=== PATIENT | female | born 1950 | race Caucasian/White ===

== ENCOUNTER 2020-09-02 12:38 | Outpatient (REF) | payer MEDICARE, SELFPAY ==
[2020-09-02 14:02] LABS: MANUAL DIFF FLAG NO
[2020-09-02 14:07] LABS: Basophils Percent Auto 0.4 % (0-2); Eosinophils Absolute Auto 0.1 X10*3/uL (0.0-0.4); Hematocrit 39.5 % (37-47); Imm Gran Abs Auto 0.02 X10*3/uL (0.00-0.03); Imm Gran Pct Auto 0.4 % (0.0-0.4); Lymphocytes Absolute Auto 1.3 X10*3/uL (1.2-4.9); Lymphocytes Percent Auto 27.6 % (20-40); Mean Corpuscular HGB Conc 32.9 g/dl (31.0-35.0); Mean Corpuscular Hemoglobin 36.7 pg (27.0-33.0); Monocytes Absolute Auto 0.4 X10*3/uL (0.1-1.2); Monocytes Percent Auto 7.3 % (2-11); Neutrophils Absolute Auto 3.1 X10*3/uL (2.0-8.3); Neutrophils Percent Auto 63.3 % (45-73); Platelet Count 244 X10*3/uL (160-400); Red Blood Count 3.54 X10*6/uL (4.20-5.50); Red Cell Distribution Width 13.2 % (11.0-16.0); White Blood Count 4.8 X10*3/uL (4.8-10.8)
[2020-09-02 14:11] LABS: Mean Corpuscular Volume 111.6 fL (80-98)
[2020-09-02 14:42] LABS: Anion Gap 15 (12-20); Blood Urea Nitrogen 18 mg/dL (9-16); Calcium 9.6 mg/dL (8.4-10.2); Carbon Dioxide 28 mmol/L (22-29); Chloride 103 mmol/L (96-108); Estimated Glomerular Filt Rate 57; Glucose Random 134 mg/dL (60-115); Potassium 4.1 mmol/l (3.3-5.1); Sodium 142 mmol/L (135-145)
[2020-09-03 20:07] LABS: LDL Cholesterol Direct 102 mg/dL (<100)
== END 2020-09-02 12:39 | disposition home or self-care (01) ==
LOC: HO.HMGCLDS 12:38
PROVIDERS: PCP Internal Medicine; Visit Provider Internal Medicine
DX: K21.9 Gastro-esophageal reflux disease without esophagitis (principal); F41.1 Generalized anxiety disorder; J45.909 Unspecified asthma, uncomplicated; I10 Essential (primary) hypertension
CPT/HCPCS: 36415; 80048; 83721; 85025; 85060

== ENCOUNTER 2020-09-29 16:38 | Outpatient (REF) | payer MEDICARE, SELFPAY ==
--- NOTE | 2020-09-29 16:41 | MM_ITS ---
EXAMINATION: MM SCREENING DIGITAL BREAST TOMOSYNTHESIS, LEFT CLINICAL INFORMATION: Screening left breast mammogram. Status post right mastectomy. COMPARISON: Mammography: 07/30/2019 and studies dating back to 06/28/2013 TECHNIQUE: Digital breast tomosynthesis is performed in both the craniocaudal and mediolateral oblique views along with computer-aided detection (CAD). Synthesized 2D images are generated from the tomosynthesis. FINDINGS: There are scattered areas of fibroglandular density (ACR BI-RADS breast composition Category b). Patient is status post right mastectomy. There is stable architectural distortion about the anterior aspect of the left breast with no new abnormal dominant mass or suspicious grouping of microcalcifications identified. MM/MM tomosynthesis screening LT IMPRESSION: There are no significant changes from prior study. ASSESSMENT: BI-RADS 2: Benign. RECOMMENDATION: Routine annual mammography screening. This patient's information was entered into a reminder system with a target due date for their next mammogram.
== END 2020-09-29 16:39 | disposition home or self-care (01) ==
LOC: HO.MAMMO 16:38
PROVIDERS: PCP Internal Medicine; Visit Provider Internal Medicine
DX: Z12.31 Encounter for screening mammogram for malignant neoplasm of breast (principal)
CPT/HCPCS: 77067

== ENCOUNTER 2020-11-18 12:33 | Outpatient (REF) | payer MEDICARE, SELFPAY ==
[2020-11-18 14:39] LABS: B Type Natriuretic Peptide 611 pg/mL (<100)
[2020-11-18 14:53] LABS: Anion Gap 17 (12-20); Blood Urea Nitrogen 18 mg/dL (9-16); Calcium 9.7 mg/dL (8.4-10.2); Carbon Dioxide 25 mmol/L (22-29); Chloride 104 mmol/L (96-108); Estimated Glomerular Filt Rate > 60; Glucose Random 137 mg/dL (60-115); Potassium 4.1 mmol/l (3.3-5.1); Sodium 142 mmol/L (135-145)
== END 2020-11-18 12:34 | disposition home or self-care (01) ==
LOC: HO.LAB 12:33
PROVIDERS: PCP Internal Medicine; Visit Provider Internal Medicine
DX: I42.8 Other cardiomyopathies (principal); I11.0 Hypertensive heart disease with heart failure; I49.8 Other specified cardiac arrhythmias; I50.22 Chronic systolic (congestive) heart failure; J45.909 Unspecified asthma, uncomplicated; Z79.899 Other long term (current) drug therapy
CPT/HCPCS: 36415; 80048; 83880; 93005; 99212

== ENCOUNTER → 2020-12-18 14:17 | Outpatient (BNVA) | payer MEDICARE, SELFPAY | PROVIDERS: PCP Internal Medicine; Visit Provider Hospitalist | DX: R91.8 Other nonspecific abnormal finding of lung field (principal); J41.8 Mixed simple and mucopurulent chronic bronchitis | CPT/HCPCS: 99202 ==

== ENCOUNTER 2020-12-30 16:35 | Emergency (ER) | payer MEDICARE, SELFPAY ==
--- NOTE | ~2020-12-30 | US_ITS ---
EXAMINATION: US ABDOMEN LIMITED CLINICAL INFORMATION: Right upper quadrant pain. COMPARISON: None TECHNIQUE: Real-time imaging of the right upper quadrant abdominal viscera. FINDINGS: PANCREAS: The visualized portions of the pancreas are unremarkable but a large portion of the gland is obscured by bowel gas. LIVER: The liver demonstrates increased echogenicity consistent with hepatic steatosis. No focal hepatic lesion. There is no intrahepatic biliary duct dilatation seen. GALLBLADDER: The patient experience tenderness when the actuarial director pressed the ultrasound probe over the gallbladder. The gallbladder is physiologically distended without evidence of stones, sludge, polyps, wall thickening or pericholecystic fluid. COMMON BILE DUCT: Normal in caliber measuring 0.6 cm in diameter. RIGHT KIDNEY: Normal. No hydronephrosis. No renal calculi or focal parenchymal lesions. The kidney measures 11.1 cm in maximum dimension. FREE FLUID: None. US/US abdomen limited IMPRESSION: Sonographically Normal-appearing gallbladder without evidence of cholecystitis. However, the patient did experience tenderness over the gallbladder with palpation with the ultrasound probe.
[2020-12-30 17:09] VITALS: BP 120/74; PULSE 89; RESP 16; TEMP 37.1; O2SAT 96; BMI 33.8
[2020-12-30 17:24] LABS: MANUAL DIFF FLAG NO
[2020-12-30 17:26] LABS: Basophils Percent Auto 0.2 % (0-2); Eosinophils Absolute Auto 0.1 X10*3/uL (0.0-0.4); Eosinophils Percent Auto 1.1 % (0-4); Hematocrit 38.3 % (37-47); Hemoglobin 12.8 g/dl (12.0-16.0); Imm Gran Abs Auto 0.01 X10*3/uL (0.00-0.03); Imm Gran Pct Auto 0.2 % (0.0-0.4); Lymphocytes Absolute Auto 1.2 X10*3/uL (1.2-4.9); Lymphocytes Percent Auto 21.5 % (20-40); Mean Corpuscular HGB Conc 33.4 g/dl (31.0-35.0); Mean Corpuscular Hemoglobin 36.6 pg (27.0-33.0); Mean Corpuscular Volume 109.4 fL (80-98); Mean Platelet Volume 11.2 fL (9.4-12.3); Monocytes Absolute Auto 0.6 X10*3/uL (0.1-1.2); Monocytes Percent Auto 10.8 % (2-11); Neutrophils Absolute Auto 3.6 X10*3/uL (2.0-8.3); Neutrophils Percent Auto 66.2 % (45-73); Platelet Count 183 X10*3/uL (160-400); Red Cell Distribution Width 12.5 % (11.0-16.0); White Blood Count 5.4 X10*3/uL (4.8-10.8)
[2020-12-30 18:00] VITALS: BP 143/67; PULSE 64; RESP 16; TEMP 36.7; O2SAT 99
[2020-12-30 18:00] LABS: Alanine Aminotransferase 50 U/L (0-31); Albumin Level 4.6 g/dL (3.5-5.0); Alkaline Phosphatase 84 U/L (39-117); Anion Gap 18 (12-20); Aspartate Amino Transferase 71 U/L (5-31); Bilirubin Direct 0.6 mg/dL (0.0-0.5); Bilirubin Total 1.3 mg/dL (0.0-1.0); Blood Urea Nitrogen 32 mg/dL (9-16); Calcium 9.9 mg/dL (8.4-10.2); Carbon Dioxide 24 mmol/L (22-29); Chloride 103 mmol/L (96-108); Creatinine Clr Calc Pharmacy 53.5; Estimated Glomerular Filt Rate 44; Glucose Random 138 mg/dL (60-115); Lipase 23 U/L (8-78); Potassium 4.5 mmol/L (3.3-5.1); Sodium 140 mmol/L (135-145)
--- NOTE | 2020-12-30 19:52 | ED_ITS ---
HPI - Abdominal Pain General Chief Complaint: Abdominal Pain <Juanita Mota PA-C - Last Filed: 12/30/20 20:55> Stated Complaint: Gall Bladder issue <Juanita Mota PA-C - Last Filed: 12/30/20 20:55> Time Seen by Provider: 12/30/20 19:37 <Juanita Mota PA-C - Last Filed: 12/30/20 20:55> Source: patient <Juanita Mota PA-C - Last Filed: 12/30/20 20:55> Mode of arrival: ambulatory <DEVAN Payne Last Filed: 12/30/20 20:55> Limitations: no limitations <Juanita Mota PA-C - Last Filed: 12/30/20 20:55> History of Present Illness HPI narrative: Patient is a 70-year-old female with a past medical history of COPD, not on home oxygen, HTN, pulmonary nodules, atrial arrhythmia, CHF w/EF 45%, nonischemic cardiomyopathy, GERD, anxiety, rheumatoid arthritis, osteoarthritis and muscle spasms who comes in today complaining of a right upper quadrant pain which has been getting worse over the last few days. She describes the pain as a twisting pain. She admits to nausea but no vomiting, pebble like stools, reduced appetite, and denies fevers, shortness of breath, chest pain or diarrhea. She states she went to her PCP and her PCP sent her to the emergency department. <Juanita Mota PA-C - Last Filed: 12/30/20 20:55> Related Data Home Medications: Home Medications Medication Instructions Recorded Confirmed furosemide 40 mg tablet 40 mg PO DAILY 09/02/20 12/30/20 acetaminophen 500 mg tablet 500 mg PO Q6H PRN 12/18/20 12/30/20 aspirin 81 mg tablet,delayed 81 mg PO DAILY 12/18/20 12/30/20 release cholecalciferol (vitamin D3) 50 50 mcg PO DAILY 12/18/20 12/30/20 mcg (2,000 unit) capsule diphenhydramine HCl 25 mg tablet 25 mg PO Q6H PRN 12/18/20 12/30/20 Previous Rx's Medication Instructions Recorded albuterol sulfate 90 mcg/actuation 1 inh INHALATION QID PRN 30 Days 09/02/20 aerosol inhaler #18 g cyclobenzaprine 5 mg tablet 5 mg PO BEDTIME PRN 90 Days #90 tab 09/02/20 omeprazole 20 mg capsule,delayed 20 mg PO DAILY #90 cap 09/20/20 release celecoxib 200 mg capsule 200 mg PO DAILY #90 cap 10/07/20 amlodipine 5 mg tablet 5 mg PO DAILY 90 Days #90 tab 10/30/20 fluoxetine 40 mg capsule 40 mg PO DAILY 90 Days #90 cap 11/20/20 metoprolol succinate 25 mg 25 mg PO DAILY #90 tab 12/02/20 tablet,extended release 24 hr losartan 50 mg tablet 50 mg PO DAILY #90 tab 12/03/20 fluticasone fur. 200 mcg-umeclid 1 inh INHALATION DAILY 30 Days #60 12/18/20 62.5 mcg-vilant 25 mcg ea inhalat.powder oxycodone 5 mg PO Q6H PRN #10 tab 12/30/20 <Juanita Mota PA-C - Last Filed: 12/30/20 20:55> Allergies/Adverse Reactions: Allergies Allergy/AdvReac Type Severity Reaction Status Date / Time hydromorphone [From DILAUDID] Allergy Intermediate HIVES Verified 12/18/20 14:54 tramadol [From ULTRAM] Allergy Intermediate ITCHY Verified 12/18/20 14:54 epinephrine AdvReac Intermediate hypotension Verified 12/18/20 14:54 gabapentin AdvReac Intermediate dizzy , Verified 12/18/20 14:54 sleepy, gi upset rofecoxib [From Vioxx] AdvReac Intermediate does not Verified 12/18/20 14:54 work <Juanita Mota PA-C - Last Filed: 12/30/20 20:55> Review of Systems Review of Systems Yes all other systems are reviewed and are negative <KODY Payne - Last Filed: 12/30/20 20:55> Physical Exam Vital Signs: Vital Signs: Last Vital Signs Temp 98.0 F 12/30/20 18:00 Pulse 64 12/30/20 18:00 Resp 16 12/30/20 18:00 BP 143/67 H 12/30/20 18:00 Pulse Ox 99 12/30/20 18:00 Body Mass Index 33.8 <Juanita Mota PA-C - Last Filed: 12/30/20 20:55> Vital Signs: Last Vital Signs Temp 98.0 F 12/30/20 18:00 Pulse 64 12/30/20 18:00 Resp 16 12/30/20 18:00 BP 143/67 H 12/30/20 18:00 Pulse Ox 99 12/30/20 18:00 Body Mass Index 33.8 <Kamila Allan NP - Last Filed: 12/31/20 00:00> Const: General: cooperative, healthy appearing, comfortable, no acute distress and well developed <Juanita Mota PA-C - Last Filed: 12/30/20 20:55> Orientation/consciousness: patient oriented x3 <Juanita Mota PA-C - Last Filed: 12/30/20 20:55> Limitations: no limitations <Juanita Mota PA-C - Last Filed: 12/30/20 20:55> HENMT: Head: Yes normal to inspection <Juanita Moat PA-C - Last Filed: 12/30/20 20:55> Eyes: General: appearance normal, both eyes and all related structures <Juanita Mota PA-C - Last Filed: 12/30/20 20:55> Neck: Neck: Yes normal visual inspection and Yes full ROM <Juanita Mota PA-C - Last Filed: 12/30/20 20:55> Resp: Effort & Inspection: normal respiratory effort and able to speak in complete sentences <Juanita Mota PA-C - Last Filed: 12/30/20 20:55> Auscultation: clear to auscultation bilaterally <Juanita Mota PA-C - Last Filed: 12/30/20 20:55> Cardio: Rate: regular rate <Juanita Mota PA-C - Last Filed: 12/30/20 20:55> Rhythm: regular rhythm <Juanita Mota PA-C - Last Filed: 12/30/20 20:55> Heart sounds: normal S1 and S2 <DEVAN Payne Last Filed: 12/30/20 20:55> GI: Inspection: Yes normal to inspection <Juanita Mota PA-C - Last Filed: 12/30/20 20:55> Palpation (GI): Soft to palpation and Tenderness to palpation present (GI) in the RUQ and Jordan's sign positive <Juanita Mota PA-C - Last Filed: 12/30/20 20:55> Skin: General skin exam: no rashes or lesions noted <KODY Payne - Last Filed: 12/30/20 20:55> Neuro: General: patient oriented x3 <Juanita Mota PA-C - Last Filed: 12/30/20 20:55> Extrem: General: Yes normal to inspection <Juanita Mota PA-C - Last Filed: 12/30/20 20:55> Course Course Course Narrative: Patient is a 70-year-old female with a past medical history of COPD, not on home oxygen, HTN, pulmonary nodules, atrial arrhythmia, CHF w/EF 45%, nonischemic cardiomyopathy, GERD, anxiety, rheumatoid arthritis, osteoarthritis and muscle spasms who comes in today complaining of a right upper quadrant pain which has been getting worse over the last few days. Patient is nontoxic appearing and physical exam reveals a positive Jordan sign. Will treat patient's pain. Labs reveal an elevated total bilirubin 1.3, elevated direct bilirubin 0.6, elevated AST 71, elevated ALT 50, no white count, lipase is WNL at 78. Abdominal ultrasound has been ordered. 12/30/2020 9pm Sign out to Kamila Allan NP <Juanita Mota PA-C - Last Filed: 12/30/20 20:55> Abdominal ultrasound limited of the right upper quadrant indicates inflammation of the gallbladder without stones or sludge. Discussion with Dr. Pacheco via [place] text at 10:10 p.m., he will follow up with her in the office for surgical outpatient. Will give oxycodone for pain management, detailed description regarding the dangers of this drug. Patient verbalized understanding of and agrees to plan of care to discharge home. <Kamila Allan NP - Last Filed: 12/31/20 00:00> MDM - Abdominal Pain Differential Diagnosis Differential diagnosis: Likely abdominal pain <Kamila Allan NP - Last Filed: 12/31/20 00:00> Medical Records Attestation: I reviewed the patient's medical records. <Kamila Allan NP - Last Filed: 12/31/20 00:00> Lab Data Attestation: I reviewed the patient's lab results. <Kamila Allan NP - Last Filed: 12/31/20 00:00> Result diagrams: : 12/30/20 17:17 12/30/20 17:18 <Juanita Mota PA-C - Last Filed: 12/30/20 20:55> Labs: Lab Results 12/30/20 12/30/20 12/30/20 Range/Units 17:17 17:17 17:18 WBC 5.4 (4.8-10.8) X10*3/uL RBC 3.50 L (4.20-5.50) X10*6/uL Hgb 12.8 (12.0-16.0) g/dl Hct 38.3 (37-47) % MCV 109.4 H (80-98) fL MCH 36.6 H (27.0-33.0) pg MCHC 33.4 (31.0-35.0) g/dl RDW 12.5 (11.0-16.0) % Plt Count 183 (160-400) X10*3/uL MPV 11.2 (9.4-12.3) fL Immature Gran % (Auto) 0.2 (0.0-0.4) % Neut % (Auto) 66.2 (45-73) % Lymph % (Auto) 21.5 (20-40) % [place] % (Auto) 10.8 (2-11) % Eos % (Auto) 1.1 (0-4) % Baso % (Auto) 0.2 (0-2) % Lymph # (Auto) 1.2 (1.2-4.9) X10*3/uL [place] # (Auto) 0.6 (0.1-1.2) X10*3/uL Eos # (Auto) 0.1 (0.0-0.4) X10*3/uL Baso # (Auto) 0.0 (0.0-0.2) X10*3/uL Abs Immat Gran (auto) 0.01 (0.00-0.03) X10*3/uL Absolute Neuts (auto) 3.6 (2.0-8.3) X10*3/uL Absolute Nucleated RBC 0.000 (0.0-0.012) X10*3/uL Nucleated RBC % (auto) 0.0 (0.0-0.2) /100WBC Hold Blue Top SEE NOTE Sodium 140 (135-145) mmol/L Potassium 4.5 (3.3-5.1) mmol/L Chloride 103 (96-108) mmol/L Carbon Dioxide 24 (22-29) mmol/L Anion Gap 18 (12-20) BUN 32 H D (9-16) mg/dL Creatinine 1.21 (0.5-1.4) mg/dL Estim Creat Clear Calc 53.5 Estimated GFR 44 Random Glucose 138 H (60-115) mg/dL Calcium 9.9 (8.4-10.2) mg/dL Total Bilirubin 1.3 H (0.0-1.0) mg/dL Direct Bilirubin 0.6 H (0.0-0.5) mg/dL AST 71 H (5-31) U/L ALT 50 H (0-31) U/L Alkaline Phosphatase 84 (39-117) U/L Total Protein 8.0 (6.5-8.0) g/dL Albumin 4.6 (3.5-5.0) g/dL Lipase 23 (8-78) U/L <Juanita Mota PA-C - Last Filed: 12/30/20 20:55> Lab Results 12/30/20 12/30/20 12/30/20 Range/Units 17:17 17:17 17:18 WBC 5.4 (4.8-10.8) X10*3/uL RBC 3.50 L (4.20-5.50) X10*6/uL Hgb 12.8 (12.0-16.0) g/dl Hct 38.3 (37-47) % MCV 109.4 H (80-98) fL MCH 36.6 H (27.0-33.0) pg MCHC 33.4 (31.0-35.0) g/dl RDW 12.5 (11.0-16.0) % Plt Count 183 (160-400) X10*3/uL MPV 11.2 (9.4-12.3) fL Immature Gran % (Auto) 0.2 (0.0-0.4) % Neut % (Auto) 66.2 (45-73) % Lymph % (Auto) 21.5 (20-40) % [place] % (Auto) 10.8 (2-11) % Eos % (Auto) 1.1 (0-4) % Baso % (Auto) 0.2 (0-2) % Lymph # (Auto) 1.2 (1.2-4.9) X10*3/uL [place] # (Auto) 0.6 (0.1-1.2) X10*3/uL Eos # (Auto) 0.1 (0.0-0.4) X10*3/uL Baso # (Auto) 0.0 (0.0-0.2) X10*3/uL Abs Immat Gran (auto) 0.01 (0.00-0.03) X10*3/uL Absolute Neuts (auto) 3.6 (2.0-8.3) X10*3/uL Absolute Nucleated RBC 0.000 (0.0-0.012) X10*3/uL Nucleated RBC % (auto) 0.0 (0.0-0.2) /100WBC Hold Blue Top SEE NOTE Sodium 140 (135-145) mmol/L Potassium 4.5 (3.3-5.1) mmol/L Chloride 103 (96-108) mmol/L Carbon Dioxide 24 (22-29) mmol/L Anion Gap 18 (12-20) BUN 32 H D (9-16) mg/dL Creatinine 1.21 (0.5-1.4) mg/dL Estim Creat Clear Calc 53.5 Estimated GFR 44 Random Glucose 138 H (60-115) mg/dL Calcium 9.9 (8.4-10.2) mg/dL Total Bilirubin 1.3 H (0.0-1.0) mg/dL Direct Bilirubin 0.6 H (0.0-0.5) mg/dL AST 71 H (5-31) U/L ALT 50 H (0-31) U/L Alkaline Phosphatase 84 (39-117) U/L Total Protein 8.0 (6.5-8.0) g/dL Albumin 4.6 (3.5-5.0) g/dL Lipase 23 (8-78) U/L <Kamila Allan NP - Last Filed: 12/31/20 00:00> Imaging Data US - abdomen: Attestation: I personally reviewed and interpreted this imaging study as follows: <Kamila Allan NP - Last Filed: 12/31/20 00:00> Radiologist's impression: EXAMINATION: US ABDOMEN LIMITED CLINICAL INFORMATION: Right upper quadrant pain. COMPARISON: None TECHNIQUE: Real-time imaging of the right upper quadrant abdominal viscera. FINDINGS: PANCREAS: The visualized portions of the pancreas are unremarkable but a large portion of the gland is obscured by bowel gas. LIVER: The liver demonstrates increased echogenicity consistent with hepatic steatosis. No focal hepatic lesion. There is no intrahepatic biliary duct dilatation seen. GALLBLADDER: The patient experience tenderness when the motor vehicle technician pressed the ultrasound probe over the gallbladder. The gallbladder is physiologically distended without evidence of stones, sludge, polyps, wall thickening or pericholecystic fluid. COMMON BILE DUCT: Normal in caliber measuring 0.6 cm in diameter. RIGHT KIDNEY: Normal. No hydronephrosis. No renal calculi or focal parenchymal lesions. The kidney measures 11.1 cm in maximum dimension. FREE FLUID: None. US/US abdomen limited IMPRESSION: Sonographically Normal-appearing gallbladder without evidence of cholecystitis. However, the patient did experience tenderness over the gallbladder with palpation with the ultrasound probe. <Kamila Allan NP - Last Filed: 12/31/20 00:00> Discharge Plan Discharge Clinical Impression: Acalculous cholecystitis Abdominal pain Qualifiers: Abdominal location: right upper quadrant Qualified Code(s): R10.11 - Right up per quadrant pain <Juanita Mota PA-C - Last Filed: 12/30/20 20:55> Patient Disposition: Home, Self-Care <Juanita Mota PA-C - Last Filed: 12/30/20 20:55> Instructions: Cholecystitis (ED), Biliary Colic (ED) <Juanita Mota PA-C - Last Filed: 12/30/20 20:55> Additional Instructions: You were evaluated for right upper quadrant pain. Abdominal ultrasound shows a distended gallbladder without stones or sludge. This is consistent with cholecystitis, and inflammation of the gallbladder. We have prescribed oxycodone for pain management. This medication is a narcotic and has high risk for addiction and abuse. Do not drive or operate machinery while taking this me dication. This medication can delay reaction time, cause drowsiness, increased risk for falls and cause constipation. Drink plenty of fluids. Use MiraLax and Colace as needed to keep stools soft and. Please call Dr Pacheco's office in the morning. He is expecting your call. Thank you for choosing this emergency department for evaluation. Please follow-up with primary care physician as needed. Return to the emergency department for any new, concerning, or worsening symptoms. <Juanita Mota PA-C - Last Filed: 12/30/20 20:55> Prescriptions: New oxycodone 5 mg tablet 5 mg PO Q6H PRN (Reason: pain) Qty: 10 RF: 0 No Action omeprazole 20 mg capsule,delayed release(DR/EC) 20 mg PO DAILY Qty: 90 RF: 2 celecoxib 200 mg capsule 200 mg PO DAILY Qty: 90 RF: 0 amlodipine 5 mg tablet 5 mg PO DAILY 90 Days Qty: 90 RF: 0 fluoxetine 40 mg capsule 40 mg PO DAILY 90 Days Qty: 90 RF: 0 metoprolol succinate 25 mg tablet extended release 24 hr 25 mg PO DAILY Qty: 90 RF: 1 losartan 50 mg tablet 50 mg PO DAILY Qty: 90 RF: 3 furosemide 40 mg tablet 40 mg PO DAILY RF: 0 cyclobenzaprine 5 mg tablet 5 mg PO BEDTIME PRN (Reason: muscle spasm) 90 Days Qty: 90 RF: 0 albuterol sulfate [ProAir HFA] 90 mcg/actuation HFA aerosol inhaler 1 inh inhalation QID PRN (Reason: shortness of breath or wheezing) 30 Days Qty: 18 RF: 2 aspirin 81 mg tablet,delayed release (DR/EC) 81 mg PO DAILY RF: 0 cholecalciferol (vitamin D3) 50 mcg (2,000 unit) capsule 50 mcg PO DAILY RF: 0 acetaminophen [Tylenol Extra Strength] 500 mg tablet 500 mg PO Q6H PRNRF: 0 diphenhydramine HCl [Benadryl Allergy] 25 mg tablet 25 mg PO Q6H PRNRF: 0 Trelegy Ellipta 200-62.5-25 mcg blister with device 1 inh inhalation DAILY 30 Days Qty: 60 RF: 12 <Juanita Mota PA-C - Last Filed: 12/30/20 20:55> Referrals: John Pacheco MD [Physician] - 1 day (Cholecystitis) <Juanita Mota PA-C - Last Filed: 12/30/20 20:55> Interventions: ED Discharge Assessment Last Done: 12/30/20 22:30 <Juanita Mota PA-C - Last Filed: 12/30/20 20:55> Discharge Date/Time: 12/30/20 22:40 <Juanita Mota PA-C - Last Filed: 12/30/20 20:55> [facility] Past Medical History Medical History: Medical History Anxiety, generalized Asthma Atrial arrhythmia Cardiac LV ejection fraction of 40-49% Chronic GERD Chronic systolic (congestive) heart failure Colonoscopy refused COPD (chronic obstructive pulmonary disease) History of breast cancer in female Hypertension, essential Muscle spasm NICM (nonischemic cardiomyopathy) Osteoarthritis Pulmonary nodules Rheumatoid arthritis <Juanita Mota PA-C - Last Filed: 12/30/20 20:55> Surgical History: Surgical History History of mastectomy <Juanita Mota PA-C - Last Filed: 12/30/20 20:55> Family History Family History: Family History Father Non-Hodgkin lymphoma Mother CVD (cardiovascular disease) Brother Lung disease Sister No problems noted. Maternal Grandfather Colon cancer Maternal Grandmother CVD (cardiovascular disease) Paternal Grandfather Unknown family medical history Paternal Grandmother Unknown family medical history Brother No problems noted. Son No problems noted. Son No problems noted. Daughter No problems noted. <Juanita Mota PA-C - Last Filed: 12/30/20 20:55> Social History Social History: Social History Alcohol intake: current Alcohol intake frequency: 0-2 drinks per day Smoking Status: Former smoker Advance Directives: No Advance Directives Information Provided: Yes <Juanita Mota PA-C - Last Filed: 12/30/20 20:55>
[2020-12-30] MEDS: HYDROcodone Bit/Acetam 5/325 TABLET 1 TAB PO (20:12)
[2020-12-30] MEDS: Lactated Ringers 500 ML 999 ML IV (21:09)
[2020-12-30] MEDS: oxyCODONE HCl Immed Release 5 MG TABLET PO (22:21)
== END 2020-12-30 22:40 | disposition home or self-care (01) ==
PROVIDERS: Emergency Provider Emergency Medicine; PCP Internal Medicine
DX: K81.9 Cholecystitis, unspecified (principal); R10.11 Right upper quadrant pain; I11.0 Hypertensive heart disease with heart failure; I50.9 Heart failure, unspecified; J44.9 Chronic obstructive pulmonary disease, unspecified; Z79.82 Long term (current) use of aspirin; Z79.899 Other long term (current) drug therapy
CPT/HCPCS: 36415; 76705; 80053; 80076; 82248; 83690; 85025; 96360; 99284

== ENCOUNTER 2021-01-01 | Outpatient (REF) | payer MEDICARE, SELFPAY ==
--- NOTE | ~2021-01-01 | CT_ITS ---
EXAMINATION: CT CHEST WITHOUT CONTRAST CLINICAL INFORMATION: Abnormal finding lung field. COMPARISON: None TECHNIQUE: Multidetector volumetric CT imaging of the chest was done. Axial MIP volume rendering provided. Sagittal and coronal reformatted images were obtained. This CT examination was performed using dose optimization techniques as appropriate, variously including the following: *Automated exposure control *Adjustment of mA and/or kV according to patient size (this includes techniques or standardized protocols for targeted exams where dose is matched to indication/reason for exam; i.e. extremities or head) *Use of iterative reconstruction technique DLP: 189 mGy-cm FINDINGS: LUNGS: Nodules: There is a single 2 mm calcified nodule pleural-based in the left upper lobe on axial image 52/634 series 4. There is a 2 mm nodule in the right upper lobe abutting the pleura on image 246/64 series 4. There is a 2 mm nodule in the left upper lobe on image 77/634 series 4. Parenchyma: There is some linear opacity extending to the minor fissure in the anterior aspect of the right middle lobe compatible with post lumpectomy change/scarring. In the right lower lobe there is some scattered hazy patchy ground-glass opacity. This is also present in the posterior aspect of the right upper lobe and in the posterior aspect of the left lower lobe. The airways are clear. Pleura: Otherwise normal. Cardiovascular: There is some minimal calcific atherosclerotic disease including coronary vessels and aorta. Pulmonary vessels normal. No pericardial effusion. Heart size within normal limits. Lymph Nodes: Normal. Thoracic Inlet: Normal. Esophagus: Normal. Chest Wall and Soft Tissues: Breast implant on the right. Upper Abdomen: Unremarkable. Osseous Structures: There is a compression fracture of the superior endplate of what appeared to be T12. Fractures likely subacute. There is a vacuum disc noted at the L1-T12 disc space indicative of concomitant degenerative disc disease. Similar degenerative changes present at L1-L2. Multilevel spondylosis noted throughout the dorsal spine. CT/CT chest wo con IMPRESSION: 1. Several small 2 mm noncalcified nodules. Follow-up per Fleischner criteria. Various management parameters for solitary pulmonary nodules are in the literature. According to the Fleischner Society, recommendations for pulmonary nodules are as follows: Nodule size < or = to 4 mm in LOW RISK PATIENTS: No follow up needed. Nodule size < or = to 4 mm in HIGH RISK PATIENTS: Follow up CT at 12 months; if unchanged, no further follow up. 2. Patchy ground-glass opacities in both lung, nonspecific. This could reflect an evolving inflammatory or infectious process. 3. Mild calcific atherosclerotic disease. 4. Compression fracture L1 superior endplate likely subacute.
== END 2021-01-01 00:01 | disposition home or self-care (01) ==
LOC: HO.CT
PROVIDERS: PCP Internal Medicine; Visit Provider Hospitalist
DX: R91.8 Other nonspecific abnormal finding of lung field (principal)
CPT/HCPCS: 71250

== ENCOUNTER → 2021-01-05 12:43 | Outpatient (BNVA) | payer MEDICARE, SELFPAY | PROVIDERS: PCP Internal Medicine; Visit Provider Surgery | DX: R10.11 Right upper quadrant pain (principal) | CPT/HCPCS: 99202 ==

== ENCOUNTER → 2021-01-15 12:50 | Outpatient (REF) | payer MEDICARE, SELFPAY ==
--- NOTE | ~2021-01-15 | NM_ITS ---
EXAMINATION: NM HIDA SCAN WITH CCK CLINICAL INFORMATION: Right upper quadrant pain COMPARISON: None TECHNIQUE: 5 mCi technetium mebrofenin and 1.8 mcg CCK. Imaging over the right upper quadrant. FINDINGS: Uptake by the liver is within normal limits. Ductal activity by 10 minutes. Gallbladder activity by 12 minutes. Bowel activity by 15 minutes. Subsequent injection of CCK demonstrates a gallbladder ejection fraction of 65%. NM/NM hepatobiliary w pharm IMPRESSION: Gallbladder ejection fraction at 65%. Therefore, no convincing scintigraphic evidence for gallbladder dyskinesis.
== END ==
LOC: HO.NUCMED 12:50
PROVIDERS: PCP Internal Medicine; Visit Provider Surgery
DX: R10.11 Right upper quadrant pain (principal)
CPT/HCPCS: 78227; A9537

== ENCOUNTER → 2021-01-20 13:22 | Outpatient (BNVA) | payer MEDICARE, SELFPAY | PROVIDERS: PCP Internal Medicine; Visit Provider Hospitalist | DX: J41.8 Mixed simple and mucopurulent chronic bronchitis (principal); R91.8 Other nonspecific abnormal finding of lung field; M05.9 Rheumatoid arthritis with rheumatoid factor, unspecified; J18.9 Pneumonia, unspecified organism; Z79.899 Other long term (current) drug therapy | CPT/HCPCS: 99212 ==

== ENCOUNTER → 2021-01-21 13:18 | Outpatient (BNVA) | payer MEDICARE, SELFPAY | PROVIDERS: PCP Internal Medicine; Visit Provider Surgery ==

== ENCOUNTER → 2021-01-23 13:51 | Outpatient (REF) | payer MEDICARE, SELFPAY ==
--- NOTE | 2021-01-23 13:57 | CA_ITS ---
Transthoracic Echocardiogram Patient (Last, First, Middle): Sherin Butler Alita Gender: Female Date of : 1950 Age: 71 Procedure Date: 01/23/2021 Procedure Type: Transthoracic Echocardiogram Location: OP Height: 170.18 cm Weight: 90.72 kg BSA: 2.02 m2 Heart Rate: bpm BP: 130 / 60 mmHg Allied Health Instructor: Referring MD: Francisco Langford MD Symptoms: I42.8 - Other cardiomyopathies Study Quality: Fair ECG Rhythm: Sinus Conclusions: - The left ventricular systolic function is mild to moderately decreased. The visually estimated ejection fraction is between 35-40%. - E/E prime ratio is between 8 and 15 consistent with indeterminate filling pressures. - Normal right ventricular cavity size and systolic function. - The left atrium is moderately dilated. Findings Left Ventricle Normal left ventricular cavity size. There is mildly increased left ventricular wall thickness. The left ventricular systolic function is mild to moderately decreased. The visually estimated ejection fraction is between 35-40%. There is moderate global hypokinesis. Abnormal diastolic function is noted. Spectral Doppler is indicative of an impaired relaxation filling pattern. E/E prime ratio is between 8 and 15 consistent with indeterminate filling pressures. Right Ventricle Normal right ventricular cavity size and systolic function. Atria The left atrium is moderately dilated. Aortic Valve The aortic valve structure and function is likely normal. There is no aortic valve stenosis. There is no aortic valve regurgitation. Mitral Valve Normal mitral valve structure and function. There is no mitral valve regurgitation. There is no mitral valve stenosis. Pulmonic Valve Normal pulmonic valve structure and function. Tricuspid Valve Normal tricuspid valve structure and function. There is trace tricuspid valve regurgitation. Normal right atrial pressure. There is no evidence of pulmonary hypertension. Great Vessels There is mild dilatation of the ascending aorta. The visualized portions of the pulmonary artery and branches are normal. Venous The inferior vena cava is normal in size and collapses greater than 50% with inspiration. Pericardium/Pleural Normal pericardial structure. There is no evidence of pericardial effusion. Prior Study Comparison No significant change compared to prior study dated: 07/24/2019. Measurements 2D Linear Measurements IVSd: 1.11 0.6-0.9/0.6-1.0 cm LVIDd: 5.47 3.9-5.3/4.2-5.9 cm LVIDd Index: 2.71 2.4-3.2/2.2-3.1 cm/m2 LVIDs: 4.07 2.0-3.6 cm LVPWd: 1.04 0.7-1.1 cm Ao Root: 3.00 2.1-3.5 cm LA Diam: 4.50 2.7-3.8/3.0-4.0 cm LAIDs Index: 2.23 1.5-2.3 cm/m2 LV Mass: 289.93 67-162/88-224 g LV Mass Index: 143.53 43-95/49-115 g/m2 LVOT Diam: 2.10 3.0+(-)1.3 cm 2D Systolic Function EF 4C: 44.00 >55% EF 2C: 51.20 >55% EF BiP: 48.10 >55% Mitral Valve MV Pk E: 0.77 MV PK A: 0.89 MV Decel Time: 292.00 E/A: 0.90 E'Lateral: 5.42 E'Medial: 5.80 E/E' Med: 13.30 E/E' Lat: 14.20 PHT: 86.00 MVA PHT: 2.56 Decel [place]: 2.64 Aortic Valve AoV Pk Vincent: 1.17 AoV Mn Vincent: 0.77 AoV VTI: 0.32 AoV Pk Grad: 5.00 Aov Mn Grad: 3.00 LEONIDAS Cont.VTI: 2.20 LVOT LVOT Pk Vincent: 0.78 LVOT Mn Vincent: 0.53 LVOT VTI: 0.20 LVOT Pk Grad: 2.00 LVOT Mn Grad: 1.00 LVOT Diam: 2.10 LVOT Area: 3.46 Diastolic Function MV Pk E: 0.77 MV Pk A: 0.89 E/A: 0.90 E'Medial: 5.80 E/E' Med: 13.30 E' Laterial: 5.42 E/E' Lat: 14.20 Tricuspid Valve TR Pk Vincent: 2.23 TR Pk Grad: 20.00 RA Press: 3.00 RVSP: 23.00 Great Vessels Aorta Ao Root-2D: 3.00 2.0-3.7 cm Ao Asc: 3.20 2.1-3.4 cm Pulmonary Valve PV Pk Vincent: 0.76 Peak PV Grad: 2.00 Updated in Other Vendor System with Status of Final Fred Latif MD electronically signed on 01/25/2021 6:12:59 PM with status of Final
== END ==
LOC: HO.CARD 13:51
PROVIDERS: Visit Provider Internal Medicine
DX: I42.8 Other cardiomyopathies (principal)
CPT/HCPCS: 93306

== ENCOUNTER → 2021-02-04 13:13 | Outpatient (BNVA) | payer MEDICARE, SELFPAY | PROVIDERS: PCP Internal Medicine; Visit Provider Internal Medicine | DX: I42.8 Other cardiomyopathies (principal); I50.22 Chronic systolic (congestive) heart failure; I49.8 Other specified cardiac arrhythmias; J45.909 Unspecified asthma, uncomplicated; F10.10 Alcohol abuse, uncomplicated | CPT/HCPCS: 99212 ==

== ENCOUNTER 2021-02-23 13:37 | Outpatient (REF) | payer MEDICARE, SELFPAY ==
[2021-02-23 15:55] LABS: MANUAL DIFF FLAG NO
[2021-02-23 16:00] LABS: Basophils Percent Auto 0.6 % (0-2); Eosinophils Absolute Auto 0.2 X10*3/uL (0.0-0.4); Hematocrit 40.9 % (37-47); Hemoglobin 13.4 g/dl (12.0-16.0); Imm Gran Abs Auto 0.04 X10*3/uL (0.00-0.03); Imm Gran Pct Auto 0.6 % (0.0-0.4); Lymphocytes Absolute Auto 1.3 X10*3/uL (1.2-4.9); Lymphocytes Percent Auto 18.1 % (20-40); Mean Corpuscular HGB Conc 32.8 g/dl (31.0-35.0); Mean Corpuscular Hemoglobin 36.3 pg (27.0-33.0); Mean Platelet Volume 11.6 fL (9.4-12.3); Monocytes Absolute Auto 0.8 X10*3/uL (0.1-1.2); Monocytes Percent Auto 11.9 % (2-11); Neutrophils Absolute Auto 4.6 X10*3/uL (2.0-8.3); Neutrophils Percent Auto 65.8 % (45-73); Platelet Count 252 X10*3/uL (160-400); Red Blood Count 3.69 X10*6/uL (4.20-5.50); Red Cell Distribution Width 12.6 % (11.0-16.0)
[2021-02-23 16:07] LABS: Mean Corpuscular Volume 110.8 fL (80-98)
[2021-02-23 16:22] LABS: C Reactive Protein 0.52 mg/dL (< or = 0.50)
[2021-02-23 16:51] LABS: Erythrocyte Sedimentation Rate 33 MM/HR (0-20)
[2021-02-24 04:45] LABS: HBS Num1 7.94 mIU/mL (0-7.99); HBc Num1 0.07 S/CO (0.00-0.79); Hepatitis B Core Antibody Nonreactive (Nonreactive); ~Hepatitis B Surface Antibody NONREACTIVE (Nonreactive)
[2021-02-24 04:46] LABS: HBsAGNum1 0.18 S/CO (0.00-0.99); Hepatitis B Surface Antigen Negative (Negative); ~HepC Num1 0.12 S/CO (0.00-0.79); ~Hepatitis C Antibody Nonreactive (Nonreactive)
[2021-02-25 08:19] LABS: Hepatitis A Antibody IgM 0.32 Index (0-0.79); ~Hepatitis A Antibody IgM Nonreactive (Nonreactive)
== END 2021-02-23 13:38 | disposition home or self-care (01) ==
LOC: HO.LAB 13:37
PROVIDERS: PCP Internal Medicine; Referring Provider Internal Medicine; Visit Provider Physician Assistant
DX: L98.8 Other specified disorders of the skin and subcutaneous tissue (principal); R10.9 Unspecified abdominal pain; R68.81 Early satiety; R74.01 Elevation of levels of liver transaminase levels; R19.7 Diarrhea, unspecified; R79.89 Other specified abnormal findings of blood chemistry; Z88.8 Allergy status to other drugs, medicaments and biological substances; Z79.899 Other long term (current) drug therapy; Z53.20 Procedure and treatment not carried out because of patient's decision for unspecified reasons
CPT/HCPCS: 36415; 85025; 85652; 86140; 86704; 86706; 86709; 86803; 87340; 99202

== ENCOUNTER 2021-03-16 11:51 | Outpatient (REF) | payer MEDICARE, SELFPAY ==
[2021-03-16 13:41] LABS: Blood Urea Nitrogen 30 mg/dL (9-16); Estimated Glomerular Filt Rate 41
== END 2021-03-16 11:52 | disposition home or self-care (01) ==
LOC: HO.LAB 11:51
PROVIDERS: PCP Internal Medicine; Visit Provider Physician Assistant
DX: R10.9 Unspecified abdominal pain (principal)
CPT/HCPCS: 36415; 82565; 84520

== ENCOUNTER → 2021-03-17 13:08 | Outpatient (BNVA) | payer MEDICARE, SELFPAY | PROVIDERS: PCP Internal Medicine; Visit Provider Hospitalist | DX: Z01.811 Encounter for preprocedural respiratory examination (principal); J41.8 Mixed simple and mucopurulent chronic bronchitis; R91.8 Other nonspecific abnormal finding of lung field; J18.9 Pneumonia, unspecified organism | CPT/HCPCS: 99212 ==

== ENCOUNTER 2021-03-19 12:50 | Outpatient (REF) | payer MEDICARE, SELFPAY ==
--- NOTE | ~2021-03-19 | CT_ITS ---
EXAMINATION: CT ABDOMEN AND PELVIS WITH CONTRAST CLINICAL INFORMATION: Abdominal pain COMPARISON: CT chest without contrast 01/01/2021 TECHNIQUE: Multidetector volumetric images were obtained from the superior aspect of the liver through the pubic symphysis following administration 85 mL of Omnipaque 350 intravenous contrast. Sagittal and coronal reformatted images were obtained on the technologist's workstation. Oral contrast: No This CT examination was performed using dose optimization techniques as appropriate, variously including the following: *Automated exposure control *Adjustment of mA and/or kV according to patient size (this includes techniques or standardized protocols for targeted exams where dose is matched to indication/reason for exam; i.e. extremities or head) *Use of iterative reconstruction technique DLP: 630 mGy-cm FINDINGS: LUNG BASES: Heart size is normal. Focal atelectatic changes seen in both lung bases, lingula and right middle lobe. LIVER, GALLBLADDER, AND BILIARY TREE: The liver is diffusely attenuated but normal size and slightly lobulated contour, especially left lobe. No focal lesion or intrahepatic ductal dilatation seen. The gallbladder is unremarkable with no evidence of radiopaque gallstones, gallbladder wall thickening, or obvious pericholecystic inflammatory changes. PANCREAS: The pancreas is atrophic. SPLEEN: Unremarkable. ADRENAL GLANDS: Unremarkable. KIDNEYS AND URETERS: The kidneys are normal in size, shape, and attenuation. No hydronephrosis, hydroureter, or calculi seen. No perinephric stranding. BLADDER: Unremarkable. GASTROINTESTINAL TRACT: There is oral contrast seen in the colon without distention. There is scattered stool and diverticuli most prominent in the sigmoid colon with no mural thickening or diverticulitis. The small bowel loops are normal caliber. The IC junction is normal. The appendix is normal caliber. ABDOMINAL WALL: No significant hernia is appreciated. LYMPH NODES: Normal. VASCULAR: Unremarkable. PELVIC VISCERA: There is no free fluid or free air. OSSEOUS STRUCTURES: There are degenerative disc changes L5-S1, L4-L5 and L2-L3 disc levels. There is grade 1 anterolisthesis L4-L5. There is L1 superior endplate compression fracture, stable. A small superior and posterior bony component projects into the epidural space but without spinal canal stenosis. CT/CT abdomen pelvis w con IMPRESSION: Lobulated liver contour with diffuse hypoattenuation likely hepatic steatosis. No focal lesion seen. L1 compression fracture deformity of indeterminate age. Unchanged to previous study 01/01/2021. If patient has pain in this region further evaluation with kyphoplasty can be performed. Degenerative disc changes as described above.
[2021-03-19] MEDS: iohexoL 350 MG/ML 100 ML INFUS..BTL 85 ML IV (15:46)
== END 2021-03-19 12:51 | disposition home or self-care (01) ==
LOC: HO.CT 12:50
PROVIDERS: Visit Provider Physician Assistant
DX: R10.9 Unspecified abdominal pain (principal)
CPT/HCPCS: 74177; Q9967

== ENCOUNTER 2021-03-20 12:30 | Outpatient (REF) | payer MEDICARE, SELFPAY ==
--- NOTE | ~2021-03-20 | XR_ITS ---
EXAMINATION: XR knee RT 4V, XR knee LT 4V CLINICAL INFORMATION: Reason for Exam M25.50 - Pain in unspecified joint COMPARISON: None available at the time of this dictation. TECHNIQUE: frontal, lateral, tunnel and patella sunrise views FINDINGS: BONES: No fracture or dislocation is present. JOINTS: Mild narrowing of joint spaces suggest degenerative osteoarthritis. SOFT TISSUE: Normal XR/XR knee RT 4V IMPRESSION: Mild degenerative osteoarthritis. No knee joint effusions.
--- NOTE | ~2021-03-20 | XR_ITS ---
EXAMINATION: BILATERAL HAND X-RAY PAIN CLINICAL INFORMATION: Pain COMPARISON: None TECHNIQUE: 3 views of each hand FINDINGS: There is arthritis at the bilateral first PENITENTIARY joints and trapezoid trapezium scaphoid joints with joint space narrowing and osteophyte formation. There is some periarticular soft tissue calcification or ossification, right greater than left. There is also arthritis at the IP joints with joint space narrowing and small osteophytes. No acute fracture or dislocation is seen. There is a soft tissue ossification adjacent to the ulnar styloid questionable for accessory ossification center versus old trauma. Soft tissues are unremarkable. XR/XR hand LT min 3V IMPRESSION: Bilateral arthritis at the first PENITENTIARY joint and trapezoid trapezium scaphoid joints and mild arthritis at the IP joints.
--- NOTE | ~2021-03-20 | XR_ITS ---
EXAMINATION: BILATERAL HAND X-RAY PAIN CLINICAL INFORMATION: Pain COMPARISON: None TECHNIQUE: 3 views of each hand FINDINGS: There is arthritis at the bilateral first CUSTODIAL joints and trapezoid trapezium scaphoid joints with joint space narrowing and osteophyte formation. There is some periarticular soft tissue calcification or ossification, right greater than left. There is also arthritis at the IP joints with joint space narrowing and small osteophytes. No acute fracture or dislocation is seen. There is a soft tissue ossification adjacent to the ulnar styloid questionable for accessory ossification center versus old trauma. Soft tissues are unremarkable. XR/XR hand RT min 3V IMPRESSION: Bilateral arthritis at the first CUSTODIAL joint and trapezoid trapezium scaphoid joints and mild arthritis at the IP joints.
--- NOTE | ~2021-03-20 | XR_ITS ---
EXAMINATION: XR knee RT 4V, XR knee LT 4V CLINICAL INFORMATION: Reason for Exam M25.50 - Pain in unspecified joint COMPARISON: None available at the time of this dictation. TECHNIQUE: frontal, lateral, tunnel and patella sunrise views FINDINGS: BONES: No fracture or dislocation is present. JOINTS: Mild narrowing of joint spaces suggest degenerative osteoarthritis. SOFT TISSUE: Normal XR/XR knee LT 4V IMPRESSION: Mild degenerative osteoarthritis. No knee joint effusions.
[2021-03-20 13:37] LABS: MANUAL DIFF FLAG NO
[2021-03-20 13:41] LABS: Basophils Percent Auto 0.5 % (0-2); Eosinophils Absolute Auto 0.1 X10*3/uL (0.0-0.4); Eosinophils Percent Auto 0.9 % (0-4); Hematocrit 38.7 % (37-47); Hemoglobin 12.8 g/dl (12.0-16.0); Imm Gran Abs Auto 0.01 X10*3/uL (0.00-0.03); Imm Gran Pct Auto 0.2 % (0.0-0.4); Lymphocytes Percent Auto 17.9 % (20-40); Mean Corpuscular HGB Conc 33.1 g/dl (31.0-35.0); Mean Corpuscular Hemoglobin 35.2 pg (27.0-33.0); Mean Corpuscular Volume 106.3 fL (80-98); Mean Platelet Volume 11.3 fL (9.4-12.3); Monocytes Absolute Auto 0.6 X10*3/uL (0.1-1.2); Monocytes Percent Auto 10.6 % (2-11); Neutrophils Percent Auto 69.9 % (45-73); Platelet Count 221 X10*3/uL (160-400); Red Blood Count 3.64 X10*6/uL (4.20-5.50); Red Cell Distribution Width 12.2 % (11.0-16.0); White Blood Count 5.8 X10*3/uL (4.8-10.8)
[2021-03-20 14:05] LABS: Alanine Aminotransferase 59 U/L (0-31); Albumin Level 4.5 g/dL (3.5-5.0); Alkaline Phosphatase 104 U/L (39-117); Anion Gap 17 (12-20); Aspartate Amino Transferase 86 U/L (5-31); Bilirubin Total 1.6 mg/dL (0.0-1.0); Blood Urea Nitrogen 22 mg/dL (9-16); C Reactive Protein 0.18 mg/dL (< or = 0.50); Calcium 10.1 mg/dL (8.4-10.2); Carbon Dioxide 21 mmol/L (22-29); Chloride 103 mmol/L (96-108); Estimated Glomerular Filt Rate 50; Glucose Random 169 mg/dL (60-115); Potassium 4.1 mmol/L (3.3-5.1); Rheumatoid Factor 31.4 IU/mL (<15.0); Sodium 137 mmol/L (135-145); Total Protein 7.9 g/dL (6.5-8.0)
[2021-03-20 14:25] LABS: Thyroid Stimulating Hormone 1.16 uIU/mL (0.32-4.0)
[2021-03-20 14:35] LABS: Erythrocyte Sedimentation Rate 22 MM/HR (0-20)
[2021-03-21 09:01] LABS: Lyme Abs Screen <0.90 index
[2021-03-21 13:02] LABS: Antibody to SS-A Antigen <1.0 NEG AI (<1.0 NEG); Antibody to SS-B Antigen <1.0 NEG AI (<1.0 NEG)
[2021-03-23 23:12] LABS: Cyclic Citrullinated Peptide <16 UNITS
[2021-03-25 13:41] LABS: Vitamin D 25-OH, D2 <4 ng/mL; Vitamin D 25-OH, D3 36 ng/mL; Vitamin D 25-OH, Total 36 ng/mL (30-100)
[2021-03-25 23:41] LABS: Anti Nuclear Antibody Screen NEGATIVE (NEGATIVE)
== END 2021-03-20 12:31 | disposition home or self-care (01) ==
LOC: HO.LAB 12:30
PROVIDERS: PCP Internal Medicine; Visit Provider Student in an Organized Health Care Education/Training Program
DX: M25.50 Pain in unspecified joint (principal); M19.90 Unspecified osteoarthritis, unspecified site; M06.9 Rheumatoid arthritis, unspecified
CPT/HCPCS: 36415; 73130; 73564; 80053; 82306; 84443; 85025; 85652; 86038; 86039; 86140; 86200; 86235; 86431; 86617; 86618; 99202

== ENCOUNTER → 2021-04-07 12:45 | Outpatient (BNVA) | payer MEDICARE, SELFPAY | PROVIDERS: PCP Internal Medicine; Visit Provider Student in an Organized Health Care Education/Training Program | DX: M25.50 Pain in unspecified joint (principal); M19.90 Unspecified osteoarthritis, unspecified site; M06.9 Rheumatoid arthritis, unspecified | CPT/HCPCS: 99212 ==

== ENCOUNTER 2021-04-15 08:09 | Day surgery (SDC) | payer MEDICARE, SELFPAY ==
[2021-04-09 13:15] VITALS: BMI 33.6
--- NOTE | 2021-04-10 09:05 | HO.ANESPROP2 ---
Documented by User: Мария Shana 04/10/21 09:14 HPI - Anesthesia Eval Consult details Narrative: 71yo F for Upper Endoscopy and Colonoscopy Cardiac cleared low to intermed - BELLA at baseline. NICMP etiology ETOH vs Chemo Pulmo cleared - mod COPD Daily ETOH *Multiple Med Allergies* PMFSH Active Problems Active Problems: All Active Problems (Updated 03/20/21 @ 12:43 by Abida Mcclain MD) Polyarthralgia (Acute) Pre-op chest exam (Acute) Fistula (Acute) Early satiety (Acute) Abdominal pain (Acute) Excessive drinking of alcohol (Acute) Pneumonitis (Acute) Acute abdominal pain in right upper quadrant (Acute) COPD (chronic obstructive pulmonary disease) (Acute) Pulmonary nodules (Acute) Atrial arrhythmia (Acute) Chronic systolic (congestive) heart failure (Acute) NICM (nonischemic cardiomyopathy) (Acute) Cardiac LV ejection fraction of 40-49% (Acute) Osteoarthritis (Acute) Rheumatoid arthritis (Acute) Colonoscopy refused (Acute) Muscle spasm (Acute) Chronic GERD (Acute) Anxiety, generalized (Acute) Asthma (Acute) Hypertension, essential (Acute) Past Medical History Medical History (Updated 04/10/21 @ 10:21 by Casie Dukes) Anxiety, generalized Asthma Atrial arrhythmia Cardiac LV ejection fraction of 40-49% Chronic GERD Chronic systolic (congestive) heart failure Colonoscopy refused COPD (chronic obstructive pulmonary disease) Excessive drinking of alcohol Fistula History of breast cancer in female Hx of abdominal pain Hypertension, essential Muscle spasm NICM (nonischemic cardiomyopathy) Osteoarthritis Pneumonitis Pulmonary nodules Rheumatoid arthritis Family History Family History (Reviewed 04/07/21 @ 12:50 by Rakel Raymundo [facility]) Father Non-Hodgkin lymphoma Mother CVD (cardiovascular disease) Brother Lung disease Sister No problems noted. Maternal Grandfather Colon cancer Maternal Grandmother CVD (cardiovascular disease) Paternal Grandfather Unknown family medical history Paternal Grandmother Unknown family medical history Brother No problems noted. Son No problems noted. Son No problems noted. Daughter No problems noted. Surgical History Surgical History (Updated 04/10/21 @ 10:23 by Casie Dukes) H/O right mastectomy History of section History of hysterectomy History of mastectomy History of removal of Port-a-Cath Social History Social History (Updated 04/10/21 @ 10:18 by Casie Dukes) Household Members: None Alcohol intake: current Alcohol intake frequency: 0-2 drinks per day Patient Tobacco Use Status: Former Tobacco user Quit Date: 1994 Tobacco use type: Cigarette Years Smoked: 10 Use of substances other than those prescribed or required for medical reasons: No Have you been hit, kicked, punched, or otherwise hurt by someone within the past year? 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 Allergy/AdvReac Type Severity Reaction Status Date / Time hydromorphone [From DILAUDID] Allergy Intermediate hives, Verified 04/10/21 10:15 itching tramadol [From ULTRAM] Allergy Intermediate hives,itchi Verified 04/10/21 10:15 ng gabapentin AdvReac Intermediate Dizziness,GI Verified 04/10/21 10:15 upset Home Medications Medication Instructions Recorded Confirmed Last Taken Type acetaminophen 500 mg tablet 500 mg PO Q6H PRN 12/18/20 04/10/21 Unknown History aspirin 81 mg tablet,delayed 81 mg PO DAILY 12/18/20 04/10/21 Unknown History release cholecalciferol (vitamin D3) 50 50 mcg PO DAILY 12/18/20 04/10/21 Unknown History mcg (2,000 unit) capsule cyclobenzaprine 5 mg tablet 10 mg PO BEDTIME PRN tab 01/05/21 04/10/21 Unknown History diphenhydramine HCl 25 mg capsule 25 mg PO BEDTIME 01/05/21 04/10/21 Unknown History metoprolol succinate 25 mg 50 mg PO DAILY tab 01/05/21 04/10/21 Unknown History tablet,extended release 24 hr Exam Exam Date and Time: April 10, 2021 0905 Height,Weight and Vital Signs: Height 5 ft 7 in Weight 97.522 kg Pertinent Lab Results Pertinent Lab Results: Laboratory Tests 03/20/21 03/20/21 13:20 13:20 WBC 5.8 Hgb 12.8 Hct 38.7 Plt Count 221 Sodium 137 Potassium 4.1 Chloride 103 Carbon Dioxide 21 L BUN 22 H Creatinine 1.08 Narrative Narrative: EKG 10/2020 sinus rhythm 68/Min; no significant ST-T changes; slightly prolonged NC at 493 milliseconds. Echo 01/2021 Conclusions: - The left ventricular systolic function is mild to moderately decreased. The visually estimated ejection fraction is between 35-40%. - E/E prime ratio is between 8 and 15 consistent with indeterminate filling pressures. - Normal right ventricular cavity size and systolic function. - The left atrium is moderately dilated. Assessment and Plan Assessment Anesthesia Assessment: Chart Reviewed Documented by User: Angelina Mckenzie 04/15/21 09:00 [facility] Past Medical History Medical History (Updated 04/10/21 @ 10:21 by Casie Dukes) Anxiety, generalized Asthma Atrial arrhythmia Cardiac LV ejection fraction of 40-49% Chronic GERD Chronic systolic (congestive) heart failure Colonoscopy refused COPD (chronic obstructive pulmonary disease) Excessive drinking of alcohol Fistula History of breast cancer in female Hx of abdominal pain Hypertension, essential Muscle spasm NICM (nonischemic cardiomyopathy) Osteoarthritis Pneumonitis Pulmonary nodules Rheumatoid arthritis Family History Family History (Reviewed 04/07/21 @ 12:50 by Rakel Raymundo [facility]) Father Non-Hodgkin lymphoma Mother CVD (cardiovascular disease) Brother Lung disease Sister No problems noted. Maternal Grandfather Colon cancer Maternal Grandmother CVD (cardiovascular disease) Paternal Grandfather Unknown family medical history Paternal Grandmother Unknown family medical history Brother No problems noted. Son No problems noted. Son No problems noted. Daughter No problems noted. Surgical History Surgical History (Updated 04/10/21 @ 10:23 by Casie Dukes) H/O right mastectomy History of section History of hysterectomy History of mastectomy History of removal of Port-a-Cath Social History Social History (Updated 04/10/21 @ 10:18 by Casie Dukes) Household Members: None Alcohol intake: current Alcohol intake frequency: 0-2 drinks per day Patient Tobacco Use Status: Former Tobacco user Quit Date: 1994 Tobacco use type: Cigarette Years Smoked: 10 Use of substances other than those prescribed or required for medical reasons: No Have you been hit, kicked, punched, or otherwise hurt by someone within the past year? 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 Allergy/AdvReac Type Severity Reaction Status Date / Time hydromorphone [From DILAUDID] Allergy Intermediate hives, Verified 04/10/21 10:15 itching tramadol [From ULTRAM] Allergy Intermediate hives,itchi Verified 04/10/21 10:15 ng gabapentin AdvReac Intermediate Dizziness,GI Verified 04/10/21 10:15 upset Home Medications Medication Instructions Recorded Confirmed Last Taken Type acetaminophen 500 mg tablet 500 mg PO Q6H PRN 12/18/20 04/10/21 Unknown History aspirin 81 mg tablet,delayed 81 mg PO DAILY 12/18/20 04/10/21 Unknown History release cholecalciferol (vitamin D3) 50 50 mcg PO DAILY 12/18/20 04/10/21 Unknown History mcg (2,000 unit) capsule cyclobenzaprine 5 mg tablet 10 mg PO BEDTIME PRN tab 01/05/21 04/10/21 Unknown History diphenhydramine HCl 25 mg capsule 25 mg PO BEDTIME 01/05/21 04/10/21 Unknown History metoprolol succinate 25 mg 50 mg PO DAILY tab 01/05/21 04/10/21 Unknown History tablet,extended release 24 hr Exam Airway Mallampati Class: II (Permeant bridge upper, cap) TM Dist: >3cm Neck ROM: Full Heart: rrr Lungs: cta Assessment and Plan Assessment Anesthesia Assessment: Anesthesia Plan Discussed and Chart Reviewed Final Anesthetic Review NPO: Yes ASA Class: III Final Preanesthetic Review: No Changes in Pt Med Stat and Consent Obtained/Reviewed Patient Risk: Intermediate Procedure Risk: Intermediate Anesthetic Plan Anesthetic Plan: MAC: Disposition: Standard PACU
[2021-04-10 10:15] VITALS: BMI 34.1
[2021-04-15 08:44] VITALS: BP 135/67; PULSE 81; RESP 18; TEMP 37.1; O2SAT 99
[2021-04-15] MEDS: Lactated Ringers 500 ML 20 ML IVCONT (08:55)
--- NOTE | 2021-04-15 09:08 | P.HPSUR_ITS ---
Pre-Procedural Eval Section B Chief Complaint: abdominal pain,early satiety Relevant Family History (Specify if Yes): No Relevant Social History: None (ex smoker) Present Medications: see Short Stay Collaborative assessment Medical History: Significant History (Anxiety, generalized Asthma Atrial arrhythmia Cardiac LV ejection fraction of 40-49% Chronic GERD Chronic systolic (congestive) heart failure Colonoscopy refused COPD (chronic obstructive pulm onary disease) Excessive drinking of alcohol Fistula History of breast cancer in female Hx of abdominal pain) History of Previous Operations: Relevant previous surgery/procedure and date(s) (H/O right mastectomy History of section History of hysterectomy History of mastectomy History of removal of Port-a-Cath) Allergies: Allergies Allergy/AdvReac Type Severity Reaction Status Date / Time hydromorphone [From DILAUDID] Allergy Intermediate hives, Verified 04/10/21 10:15 itching tramadol [From ULTRAM] Allergy Intermediate hives,itchi Verified 04/10/21 10:15 ng gabapentin AdvReac Intermediate Dizziness,GI Verified 04/10/21 10:15 upset Review of Systems Sugical H&P ROS: Negative: Constitution, Cardiovascular, Respiratory, Neurological, Psychiatric, Hem-Onc, Allergic/Immunologic, Gastrointestinal, Genitourinary, Musculoskeletal, Integumentary, Endocrine and Eyes/Ears/Nose/Throat Exam Surgical H&P Exam: Normal: HEENT, Normal: Heart, Normal: Lungs, Normal: Extremities, Normal: Abdomen, Normal: Skin and Normal: Neurological Plan Diagnosis/Plan: Unchanged I have reviewed the history and physical and performed a pertinent physical examination on my patient. No changes have occurred unless specified.
--- NOTE | 2021-04-15 09:10 | P.OP_ITS ---
Operative Note Operative Note Date of Service: 04/15/21 Narrative: Operative Information Procedure Description: EGD, Colonoscopy FLEXIBLE TRANSORAL UPPER GASTROINTESTINAL ENDOSCOPY AND COLONOSCOPY PROCEDURE NOTE UPPER ENDOSCOPY Consent: Indications for the procedure and potential complications of bleeding, perforation, reaction to medications and missed diagnosis were discussed with the patient and informed consent was obtained. Instrument: Olympus GIF H 190 J mid size upper endoscope Monitoring: Vital signs and clinical assessment, continuous EKG monitoring, Pulse oximetry, Carbon Dioxide monitoring and blood pressure monitoring were done throughout the procedure. Procedure: The patient was placed in the left lateral decubitis position and pre-procedure medications were administered and a bite block was placed. The endoscope was inserted into the mouth and advanced under direct vision to the third part of duodenum. A careful inspection was made as the upper endoscope was withdrawn including a retroflexed examination of the proximal stomach; Findings and interventions are described below. Findings: Larynx:normal Esophagus: GE junction at 40 cm, diaphragm hiatus at 40 cm, abnormal mucosa with whitish plaques and microabscesses, bx taken from distal and proximal esophagus in separate jars Stomach: Patchy erythema. Biopsies were obtained. Grade 2 flap valve on retroflexed examination of the cardia. Duodenum: Normal bulb and descending duodenum, bx taken Intervention: Biopsies as noted above COLONOSCOPY Instrument: Olympus variable stiffness pediatric scope 190L Colonoscopy Monitoring: Vital signs and clinical assessment, continuous EKG monitoring, Pulse oximetry, Carbon Dioxide monitoring and blood pressure monitoring were done throughout the procedure. Colon withdrawal time was 10 minutes. Procedure: The patient was placed in the left lateral decubitis position and pre-procedure medications were administered. After a digital rectal examination of the ano-rectum, the video colonoscope was inserted into the rectum and advanced through the colon to the cecum/TI. The colonoscope was slowly withdrawn in a retrograde panoramic fashion and the colon mucosa was carefully examined including a retroflexed view of the rectum. Findings and interventions are described below. Procedure Difficulty:easy Findings: Terminal Ileum-normal, bx taken random colon bx taken Cecum:normal Ascending Colon: normal Transverse Colon -normal Descending Colon:normal Sigmoid Colon: moderate severe diverticulosis with varying sized diverticula Rectum: Retroflexion with small internal hemorrhoids, grade I Anorectum - normal Colon preparation: Sabinal Bowel Preparation Scale Right colon; 2 Transverse colon: 2 Left colon; 2 (0 = Unprepared colon segment with mucosa not seen due to solid stool that cannot be cleared. 1 = Portion of mucosa of the colon segment seen, but other areas of the colon segment not well seen due to staining, residual stool and/or opaque liquid. 2 = Minor amount of residual staining, small fragments of stool and/or opaque liquid, but mucosa of colon segment seen well. 3 = Entire mucosa of colon segment seen well with no residual staining, small fragments of stool or opaque liquid) Impression and Post Procedure Diagnosis: Endoscopy Findings: gastritis possible candidal esophagitis vs EoE Colonoscopy Findings: internal hemorrhoids diverticular disease Plan: Await Pathology results Repeat Colonoscopy in 10 years or earlier if clinically indicated High fiber diet leaflet avoid straining at stool, epsom salts and sitz bath, anusol supps or cream prn if unique confirmed then fluconazole for 3 weeks, gargel after using steroid inhalers consider pain management referral if bx neg, pain sounds more myofascial Above findings were reviewed with the patient and relevant handouts were provided if indicated.
--- NOTE | 2021-04-15 09:10 | P.BOP_ITS ---
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
[2021-04-15 09:53] VITALS: BP 104/60; PULSE 85; RESP 16; TEMP 37; O2SAT 96
[2021-04-15 10:08] VITALS: BP 113/60; PULSE 70; RESP 17; O2SAT 96
[2021-04-15 10:23] VITALS: BP 108/60; PULSE 83; RESP 19; TEMP 36.3; O2SAT 97
== END 2021-04-15 11:40 ==
LOC: HO.SSS 08:09
PROVIDERS: PCP Internal Medicine; Visit Provider Internal Medicine Gastroenterology
PROC: (CPT 45380; principal; 2021-04-15 09:20)
DX: R10.9 Unspecified abdominal pain (principal); K57.30 Diverticulosis of large intestine without perforation or abscess without bleeding; K64.0 First degree hemorrhoids; R68.81 Early satiety; K29.50 Unspecified chronic gastritis without bleeding; B37.81 Candidal esophagitis; K21.9 Gastro-esophageal reflux disease without esophagitis; K44.9 Diaphragmatic hernia without obstruction or gangrene; I50.22 Chronic systolic (congestive) heart failure; I11.0 Hypertensive heart disease with heart failure; I42.8 Other cardiomyopathies; J44.9 Chronic obstructive pulmonary disease, unspecified; R91.8 Other nonspecific abnormal finding of lung field; F10.10 Alcohol abuse, uncomplicated; Z79.82 Long term (current) use of aspirin; Z79.899 Other long term (current) drug therapy; Z87.891 Personal history of nicotine dependence
CPT/HCPCS: 45380; 43239; 88305; 88312; 88342

== ENCOUNTER → 2021-04-29 11:14 | Outpatient (BNVA) | payer MEDICARE, SELFPAY | PROVIDERS: PCP Internal Medicine; Referring Provider Internal Medicine; Visit Provider Physician Assistant | DX: R10.9 Unspecified abdominal pain (principal); B37.81 Candidal esophagitis | CPT/HCPCS: 99212 ==

== ENCOUNTER → 2021-07-27 13:51 | Outpatient (BNVA) | payer MEDICARE, SELFPAY | PROVIDERS: PCP Internal Medicine; Visit Provider Hospitalist | DX: J41.8 Mixed simple and mucopurulent chronic bronchitis (principal); J18.9 Pneumonia, unspecified organism; R91.8 Other nonspecific abnormal finding of lung field | CPT/HCPCS: 99212 ==

== ENCOUNTER → 2021-08-07 12:23 | Outpatient (BNVA) | payer MEDICARE, SELFPAY | PROVIDERS: PCP Internal Medicine; Visit Provider Nurse Practitioner Family | DX: M25.50 Pain in unspecified joint (principal); M05.9 Rheumatoid arthritis with rheumatoid factor, unspecified | CPT/HCPCS: 99212 ==

== ENCOUNTER 2021-08-17 15:02 | Outpatient (REF) | payer MEDICARE, SELFPAY ==
[2021-08-17 16:41] LABS: MANUAL DIFF FLAG NO
[2021-08-17 16:45] LABS: Basophils Percent Auto 0.6 % (0-2); Eosinophils Absolute Auto 0.1 X10*3/uL (0.0-0.4); Eosinophils Percent Auto 1.4 % (0-4); Hematocrit 36.3 % (37-47); Hemoglobin 12.1 g/dl (12.0-16.0); Imm Gran Abs Auto 0.02 X10*3/uL (0.00-0.03); Imm Gran Pct Auto 0.4 % (0.0-0.4); Lymphocytes Absolute Auto 1.3 X10*3/uL (1.2-4.9); Lymphocytes Percent Auto 25.4 % (20-40); Mean Corpuscular HGB Conc 33.3 g/dl (31.0-35.0); Mean Corpuscular Hemoglobin 36.4 pg (27.0-33.0); Mean Corpuscular Volume 109.3 fL (80-98); Mean Platelet Volume 11.5 fL (9.4-12.3); Monocytes Absolute Auto 0.4 X10*3/uL (0.1-1.2); Monocytes Percent Auto 7.6 % (2-11); Neutrophils Absolute Auto 3.3 X10*3/uL (2.0-8.3); Neutrophils Percent Auto 64.6 % (45-73); Platelet Count 215 X10*3/uL (160-400); Red Blood Count 3.32 X10*6/uL (4.20-5.50); Red Cell Distribution Width 12.8 % (11.0-16.0); White Blood Count 5.1 X10*3/uL (4.8-10.8)
[2021-08-17 16:55] LABS: Estimated Average Glucose 105 mg/dL; Hemoglobin A1c % 5.3 %
[2021-08-17 17:04] LABS: Alanine Aminotransferase 61 U/L (0-31); Albumin Level 4.3 g/dL (3.5-5.0); Alkaline Phosphatase 85 U/L (39-117); Anion Gap 17 (12-20); Aspartate Amino Transferase 86 U/L (5-31); Bilirubin Total 0.7 mg/dL (0.0-1.0); Blood Urea Nitrogen 19 mg/dL (9-16); Calcium 9.6 mg/dL (8.4-10.2); Carbon Dioxide 22 mmol/L (22-29); Chloride 106 mmol/L (96-108); Cholesterol 184 mg/dL; Estimated Glomerular Filt Rate 52; Glucose Fasting 94 mg/dL (60-99); HDL Cholesterol 67 mg/dL; LDL Cholesterol Calculated 99 mg/dl; Potassium 4.2 mmol/L (3.3-5.1); Sodium 141 mmol/L (135-145); Total Protein 7.6 g/dL (6.5-8.0); Triglycerides 93 mg/dL
[2021-08-17 17:05] LABS: Creatinine Urine 127.81 mg/dL; Microalbum/Creatinine Ratio Ur 7.8 ug/mg cr
[2021-08-17 17:25] LABS: Vitamin D 25-OH Total 40.4 ng/mL (>30)
[2021-08-17 17:37] LABS: Erythrocyte Sedimentation Rate 22 MM/HR (0-20); Folate 15.4 ng/mL (> or = 4.0); Vitamin B12 355 pg/mL (200-900)
== END 2021-08-17 15:03 | disposition home or self-care (01) ==
LOC: HO.HMGCLDS 15:02
PROVIDERS: PCP Internal Medicine; Visit Provider Nurse Practitioner Family
DX: G89.29 Other chronic pain (principal); I50.22 Chronic systolic (congestive) heart failure; J41.8 Mixed simple and mucopurulent chronic bronchitis; R10.9 Unspecified abdominal pain; R91.8 Other nonspecific abnormal finding of lung field; M06.9 Rheumatoid arthritis, unspecified
CPT/HCPCS: 36415; 80053; 80061; 82043; 82306; 82607; 82746; 83036; 85025; 85027; 85652; 86140

== ENCOUNTER 2021-08-24 13:00 | Outpatient (RCR) | payer MEDICARE, SELFPAY ==
--- NOTE | 2021-08-17 17:11 | MHC.PT.EP ---
[facility] [place] [facility] [place] [facility] [place] Office [address] [phone] F: [phone] F: [phone] F: [phone] F: [phone] Physical Therapy Plan of Care Date of Evaluation: Date of Surgery: Diagnosis: LBP with unspecified OA. Assessment: Pt is a 71 y/o female with COPD who is referred to PT for eval and treat of LBP which results n decreased tolerance and ability to perform ambulatory, standing and sitting tasks for duration as well as lifting objects of weight, and rolling in bed secondary to decreased hip and core strength, decreased trunk ROM as well as decreased posture, increased tissue tension, Hx of compression fracture at L1, and pain. Pt is deemed an appropriate candidate to receive skilled PT in order to address her physical limitations to improve her functional ability. Frequency and Duration: The patient will be seen 2 x / wk x 4 wks. Short Term Goals: Initiate HEP with evidence of compliance. In 2 weeks: improve baseline pain with activity to < 4/10, initial: 6/10 Pool Table Mechanic Goals: I with HEP. Pt will be able to stand as long as she is required with managed Sx; initial: < 1/2 hour. Pt will be able to walk long distances with managed pain. Treatment Plan: Modalities to reduce pain, spasms and effusion. Manual therapy to restore motion and function. Therapeutic exercise to improve strength and flexibility. Neuromuscular re-education for posture and balance. Therapeutic activities to return to functional activities of daily living. Electronically signed by: Jevon Chow PT. Please sign and return to therapist. Thank you for your referral.
--- NOTE | 2022-03-01 11:44 | MHC.PT.DC ---
[facility] [place] [facility] [place] Office [place] Office [address] Adia Castro [address] [phone] F: [phone] F: [phone] F: [phone] F: [phone] Physical Therapy Discharge Report Diagnosis: LBP with unspecified OA. Date of Surgery: Date of Evaluation: 08/17/21 Date of Discharge: 08/24/21 Treatments to Date: 2 Cancellations to Date: No Shows to Date: Discharge Status: Patient Elected to Stop Discharge Summary: good overall johana for activities though Pt is SOB at times removing her mask often which she is reminded to try as much as possible to comply with policy; Pt is treated in private room. Electronically signed by: Isael Neal PT Please sign and return to therapist. Thank you for your referral.
== END 2022-03-01 11:45 | disposition home or self-care (01) ==
LOC: HO.PTCHIC 13:00
PROVIDERS: Visit Provider Nurse Practitioner Family
DX: M54.50 Low back pain, unspecified (principal); M19.90 Unspecified osteoarthritis, unspecified site; M05.9 Rheumatoid arthritis with rheumatoid factor, unspecified
CPT/HCPCS: 97110; 97162

== ENCOUNTER → 2021-08-27 14:55 | Outpatient (BNVA) | payer MEDICARE, SELFPAY | PROVIDERS: PCP Internal Medicine; Referring Provider Internal Medicine; Visit Provider Internal Medicine | DX: I42.8 Other cardiomyopathies (principal); I50.22 Chronic systolic (congestive) heart failure; I49.8 Other specified cardiac arrhythmias; F10.10 Alcohol abuse, uncomplicated | CPT/HCPCS: 99212 ==

== ENCOUNTER 2021-11-04 10:24 | Outpatient (REF) | payer MEDICARE, SELFPAY ==
--- NOTE | ~2021-11-04 | XR_ITS ---
EXAMINATION: XR ABDOMEN COMPLETE CLINICAL INDICATION: Abdominal pain COMPARISON: CT abdomen of March 19, 2021 TECHNIQUE: 2 views of the abdomen. FINDINGS: The bowel gas pattern is normal with no evidence of ileus or obstruction. No unusual soft tissue calcifications are noted. No free air appreciated. There is a compression fracture of the L1 vertebral body. There is degenerative disc space disease of the mid to lower thoracic spine. There is question of hepatomegaly. XR/XR abdomen min 2V IMPRESSION: No evidence of ileus or obstruction. No definite renal calculi appreciated.
== END 2021-11-04 10:25 | disposition home or self-care (01) ==
LOC: HO.HMGCX 10:24
PROVIDERS: PCP Internal Medicine; Visit Provider Internal Medicine
DX: R10.9 Unspecified abdominal pain (principal)
CPT/HCPCS: 74019

== ENCOUNTER 2022-01-26 16:16 | Outpatient (REF) | payer MEDICARE, SELFPAY ==
--- NOTE | ~2022-01-26 | CT_ITS ---
EXAMINATION: CT CHEST WITHOUT CONTRAST CLINICAL INFORMATION: Pneumonia. COMPARISON: CT chest 01/01/2021. TECHNIQUE: Multidetector volumetric CT imaging of the chest was done. Axial MIP volume rendering provided. Sagittal and coronal reformatted images were obtained. This CT examination was performed using dose optimization techniques as appropriate, variously including the following: *Automated exposure control *Adjustment of mA and/or kV according to patient size (this includes techniques or standardized protocols for targeted exams where dose is matched to indication/reason for exam; i.e. extremities or head) *Use of iterative reconstruction technique DLP: 195 mGy-cm FINDINGS: TRANSITION ASSISTANT: Well-inflated lungs. LUNGS: The lungs are well expanded and clear of acute pneumonic process. There is a 2 mm nodule left lung apex axial image 106/5. Minimal left apical parenchymal scarring is seen. There are 1 mm punctate nodules seen, peripherally based, left upper lobe 152/5, a 2 mm subpleural nodule left lower lobe superior segment axial image 206/5. No additional nodules, mass or consolidation seen. There is ground-glass attenuation in the dependent segments of both lower lobes. MEDIASTINUM: The thyroid lobes are symmetrical and normal. The central trachea and the bronchi are widely patent. Mild arthroscopic changes of thoracic aorta are noted. No abnormal-sized mediastinal or hilar lymph nodes seen. No pericardial effusion. PLEURA: There is no pleural effusion. No pleural mass or thickening. AXILLA: No abnormal-sized axillary lymph nodes seen. There is evidence of right mastectomy with a right augmented breasts. UPPER ABDOMEN: Visualized liver, spleen, pancreas and bilateral adrenal glands are unremarkable. OSSEOUS STRUCTURES: No lytic or sclerotic process seen. There is mild ventral spondylosis dorsal spine. There is compression deformity L1 vertebra of indeterminate etiology. There is associated mild spondylosis at T12-L1 disc level. CT/CT chest wo con IMPRESSION: Well-inflated lungs with punctate 2 mm nodules and less. No abnormal mediastinal adenopathy or mass. Evidence of previous right mastectomy with augmented right breast. Fleischner guidelines were followed.
== END 2022-01-26 16:17 | disposition home or self-care (01) ==
LOC: HO.CT 16:16
PROVIDERS: PCP Internal Medicine; Visit Provider Hospitalist
DX: J18.9 Pneumonia, unspecified organism (principal); R91.8 Other nonspecific abnormal finding of lung field
CPT/HCPCS: 71250

== ENCOUNTER → 2022-02-15 14:25 | Outpatient (BNVA) | payer MEDICARE, SELFPAY | PROVIDERS: PCP Internal Medicine; Visit Provider Hospitalist | DX: J44.0 Chronic obstructive pulmonary disease with (acute) lower respiratory infection (principal); R91.8 Other nonspecific abnormal finding of lung field; Z79.899 Other long term (current) drug therapy | CPT/HCPCS: 99212 ==

== ENCOUNTER 2022-02-23 08:58 | Outpatient (REF) | payer MEDICARE, SELFPAY ==
[2022-02-23 11:51] LABS: Hematocrit 37.7 % (37.0-47.0); Hemoglobin 12.3 g/dl (12.0-16.0); Mean Corpuscular HGB Conc 32.6 g/dl (31.0-35.0); Mean Platelet Volume 12.7 fL (9.4-12.3); Platelet Count 220 X10*3/uL (160-400); Red Blood Count 3.42 X10*6/uL (4.20-5.50); White Blood Count 6.5 X10*3/uL (4.8-10.8)
[2022-02-23 12:00] LABS: Mean Corpuscular Volume 110.2 fL (80.0-98.0)
[2022-02-23 12:13] LABS: TSH reflex Free T4 1.18 uIU/mL (0.32-4.0); Vitamin D 25-OH Total 38.4 ng/mL (>30)
[2022-02-23 12:17] LABS: Alanine Aminotransferase 61 U/L (0-31); Alkaline Phosphatase 106 U/L (39-117); Anion Gap 17 (12-20); Aspartate Amino Transferase 109 U/L (5-31); Blood Urea Nitrogen 16 mg/dL (9-16); Calcium 9.8 mg/dL (8.4-10.2); Carbon Dioxide 22 mmol/L (22-29); Chloride 104 mmol/L (96-108); Cholesterol 177 mg/dL; Estimated Glomerular Filt Rate 42; Glucose Fasting 101 mg/dL (60-99); HDL Cholesterol 53 mg/dL; LDL Cholesterol Calculated 104 mg/dl; Potassium 4.4 mmol/L (3.3-5.1); Sodium 139 mmol/L (135-145); Total Protein 7.2 g/dL (6.5-8.0); Triglycerides 100 mg/dL
[2022-02-23 12:27] LABS: B Type Natriuretic Peptide 142 pg/mL (<100)
[2022-02-23 12:48] LABS: Folate > 20.0 ng/mL (> or = 4.0); Vitamin B12 459 pg/mL (200-900)
== END 2022-02-23 08:59 | disposition home or self-care (01) ==
LOC: HO.HMGCLDS 08:58
PROVIDERS: Visit Provider Internal Medicine
DX: Z00.00 Encounter for general adult medical examination without abnormal findings (principal); J44.0 Chronic obstructive pulmonary disease with (acute) lower respiratory infection; I42.8 Other cardiomyopathies; I10 Essential (primary) hypertension; E53.8 Deficiency of other specified B group vitamins; E55.9 Vitamin D deficiency, unspecified
CPT/HCPCS: 36415; 80053; 80061; 82306; 82607; 82746; 83880; 84443; 85027

== ENCOUNTER → 2022-03-04 14:50 | Outpatient (REF) | payer MEDICARE, SELFPAY ==
--- NOTE | 2022-03-04 14:56 | CA_ITS ---
Transthoracic Echocardiogram Patient (Last, First, Middle): Sherin Butler A Gender: Female Date of : 1950 Age: 72 Procedure Date: 03/04/2022 Procedure Type: Transthoracic Echocardiogram Location: OP Height: 170.18 cm Weight: 99.79 kg BSA: 2.11 m2 Heart Rate: bpm BP: 120 / 70 mmHg Labor Relations Director: TO/YR Referring MD: Francisco Langford MD [place] Supervisor: Law Rondon MD Symptoms: I50.22 - Chronic systolic (congestive) heart failure Study Quality: Fair ECG Rhythm: Sinus Conclusions: - 1. Normal LV systolic function with impaired relaxation filling pattern with wall motion abnormality suggestive underlying coronary artery disease next 2. Mildly dilated left atrium 3. Normal cardiac valvular Doppler 4. Normal RV systolic pressure 5. No pericardial effusion Findings Left Ventricle Normal left ventricular size, thickness, and systolic function. The visually estimated ejection fraction is between 55-60%. Spectral Doppler is indicative of an impaired relaxation filling pattern. E/E prime ratio is between 8 and 15 consistent with indeterminate filling pressures. Wall Motion Rest Echo Findings The basal inferior and basal inferoseptal segments are akinetic. All other scored wall segments showed normal motion. Right Ventricle Normal right ventricular cavity size and systolic function. Atria The left atrium is mildly dilated. There is no evidence of interatrial shunt. The right atrium is normal in size. Aortic Valve The aortic valve was not well visualized. There is no aortic valve stenosis. There is no aortic valve regurgitation. Mitral Valve There is mild anterior mitral leaflet thickening. There is mild mitral annular calcification. There is trace mitral valve regurgitation. There is no mitral valve stenosis. Pulmonic Valve The pulmonic valve was not well visualized. Tricuspid Valve Likely normal tricuspid valve structure and function. There is trace tricuspid valve regurgitation. The right ventricular systolic pressure is normal. The right ventricular systolic pressure is 27 mmHg. Normal right atrial pressure. There is no evidence of pulmonary hypertension. Great Vessels All visible segments of the aorta are normal in size. The pulmonary artery was not well visualized. Venous The inferior vena cava is normal in size and collapses greater than 50% with inspiration. Pericardium/Pleural There is no evidence of pericardial effusion. Prior Study Comparison Changes noted compared to prior study dated: 01/23/2021. LV systolic function is normal on this study Measurements 2D Linear Measurements IVSd: 1.05 0.6-0.9/0.6-1.0 cm LVIDd: 5.77 3.9-5.3/4.2-5.9 cm LVIDd Index: 2.73 2.4-3.2/2.2-3.1 cm/m2 LVIDs: 4.52 2.0-3.6 cm LVPWd: 1.02 0.7-1.1 cm LA Diam: 3.90 2.7-3.8/3.0-4.0 cm LAIDs Index: 1.85 1.5-2.3 cm/m2 LV Mass: 301.38 67-162/88-224 g LV Mass Index: 142.84 43-95/49-115 g/m2 LVOT Diam: 2.30 3.0+(-)1.3 cm 2D Systolic Function EF 4C: 53.70 >55% EF 2C: 56.80 >55% EF BiP: 56.50 >55% Mitral Valve MV Pk E: 0.60 MV PK A: 0.84 MV Decel Time: 190.00 E/A: 0.70 E'Lateral: 7.83 E'Medial: 5.87 E/E' Med: 10.20 E/E' Lat: 7.70 PHT: 56.00 MVA PHT: 3.93 Decel [place]: 3.16 Aortic Valve AoV Pk Vincent: 1.31 AoV Mn Vincent: 0.93 AoV VTI: 0.30 AoV Pk Grad: 7.00 Aov Mn Grad: 4.00 LEONIDAS Cont.VTI: 2.81 LVOT LVOT Pk Vincent: 0.91 LVOT Mn Vincent: 0.57 LVOT VTI: 0.20 LVOT Pk Grad: 3.00 LVOT Mn Grad: 2.00 LVOT Diam: 2.30 LVOT Area: 4.15 Diastolic Function MV Pk E: 0.60 MV Pk A: 0.84 E/A: 0.70 E'Medial: 5.87 E/E' Med: 10.20 E' Laterial: 7.83 E/E' Lat: 7.70 Right Ventricle TAPSE (mm): 29.00 TVS' Vincent: 17.30 Tricuspid Valve TR Pk Vincent: 2.44 TR Pk Grad: 24.00 RA Press: 3.00 RVSP: 27.00 Great Vessels Aorta Sinus of Valsalva: 3.30 2.0-3.[address] [place]: 2.79 1.7-3.4 cm Ao Asc: 3.50 2.1-3.4 cm Updated in Other Vendor System with Status of Final Law Rondon MD electronically signed on 03/05/2022 3:28:52 PM with status of Final
== END ==
LOC: HO.CARD 14:50
PROVIDERS: PCP Internal Medicine; Visit Provider Internal Medicine
DX: I50.22 Chronic systolic (congestive) heart failure (principal)
CPT/HCPCS: 93306

== ENCOUNTER → 2022-03-15 14:18 | Outpatient (BNVA) | payer MEDICARE, SELFPAY | PROVIDERS: PCP Internal Medicine; Referring Provider Internal Medicine; Visit Provider Internal Medicine | DX: I42.8 Other cardiomyopathies (principal); I50.22 Chronic systolic (congestive) heart failure; I49.8 Other specified cardiac arrhythmias; F10.10 Alcohol abuse, uncomplicated | CPT/HCPCS: 93005; 99212 ==

== ENCOUNTER 2023-02-06 17:47 | Emergency (ER) | payer MEDICARE, SELFPAY ==
--- NOTE | ~2023-02-06 | CT_ITS ---
EXAMINATION: CT ABDOMEN AND PELVIS WITHOUT CONTRAST CLINICAL INFORMATION: Urinary retention COMPARISON: CT abdomen pelvis 03/19/2021 TECHNIQUE: Multidetector volumetric imaging was performed from the superior aspect of the liver through the pubic symphysis. Sagittal and coronal reformatted images were obtained on the technologist's workstation. This CT examination was performed using dose optimization techniques as appropriate, variously including the following: *Automated exposure control *Adjustment of mA and/or kV according to patient size (this includes techniques or standardized protocols for targeted exams where dose is matched to indication/reason for exam; i.e. extremities or head) *Use of iterative reconstruction technique DLP: 695 mGy-cm FINDINGS: LUNG BASES: Basilar atelectasis is present, right greater than left. No pleural effusions. LIVER, GALLBLADDER, AND BILIARY TREE: The liver has a lobular border and is enlarged measuring 18.7 cm in greatest cephalocaudad dimension with decreased attenuation hepatic steatosis. Previously the liver measured 16.2 cm in cephalocaudad dimension. No focal hepatic lesion or biliary ductal dilatation is present. The gallbladder is unremarkable with no evidence of radiopaque gallstones, gallbladder wall thickening, or obvious pericholecystic inflammatory changes. PANCREAS: Unremarkable. SPLEEN: Splenic granuloma is present. The spleen is mildly enlarged measuring 12.6 cm in cephalocaudad dimension. ADRENAL GLANDS: Unremarkable. KIDNEYS AND URETERS: The kidneys are normal in size, shape, and attenuation. There is a 4 mm nonobstructing interpolar calculus present which measures only about 210 Hounsfield units secondary to partial volume averaging. This is 15.8 cm from the posterior axillary line. A smaller calcifications seen at the lower pole which is probably vascular. No hydronephrosis, hydroureter, or left-sided or ureteral calculi seen. No perinephric stranding. BLADDER: Unremarkable. GASTROINTESTINAL TRACT: Colonic diverticulosis is present predominantly in the sigmoid without diverticulitis. The small and large bowel are unremarkable. The appendix is unremarkable. ABDOMINAL WALL: No significant hernia is appreciated. LYMPH NODES: No retroperitoneal lymphadenopathy. VASCULAR: Calcific atherosclerotic plaque present in the aorta and iliac vessels without aneurysm. PELVIC VISCERA: The uterus is not seen. An abnormal adnexal mass is not present. No free intraperitoneal fluid is seen. OSSEOUS STRUCTURES: Degenerative changes again seen in the spine with a compression fracture of L1. Grade 1 anterolisthesis again noted L4 upon L5. CT/CT abdomen pelvis wo IV con IMPRESSION: 1. Enlarged fatty liver with mild splenomegaly. Lobular border suggests cirrhosis. 2. Nonobstructing right renal calculus. 3. Colonic diverticulosis without diverticulitis along with other incidental findings described above. Fleischner guidelines were followed.
[2023-02-06 18:18] VITALS: BP 150/109; PULSE 76; RESP 18; TEMP 36.1; O2SAT 96; BMI 31.3
--- NOTE | 2023-02-06 18:18 | ED_ITS ---
HPI - Female Genitourinary General Chief complaint: Urogenital-Female <ANNELIESE Mendoza - Last Filed: 02/06/23 18:24> Stated complaint: not urinating <ANNELIESE Mendoza - Last Filed: 02/06/23 18:24> Time Seen by Provider: 02/06/23 20:14 <ANNELIESE Mendoza - Last Filed: 02/06/23 18:24> Source: patient, RN notes reviewed and old records reviewed <Vini Hines - Last Filed: 02/06/23 20:58> Mode of arrival: ambulatory <Vini Hines - Last Filed: 02/06/23 20:58> Limitations: no limitations <Vini Hines - Last Filed: 02/06/23 20:58> History of Present Illness HPI Narrative: 73-year-old female presents for evaluation of difficulty urinating. Patient reports that she has had increasing urinary frequency for the last week or so. She reports that she has been going more frequently but smaller amounts. She states that she was able to urinate this morning but has not been able to urinate almost 12 hours At the time my evaluation, the patient was able to urinate about 10 cc of cloudy, yellow urine. Her bladder scan prior to that only at 45 cc of urine Denies any history of urinary retention <Vini Hines - Last Filed: 02/06/23 20:58> Related Data Home medications: Home Medications Medication Instructions Recorded Confirmed acetaminophen 500 mg tablet 500 mg PO Q6H PRN Pain 12/18/20 03/15/22 (Tylenol Extra Strength) aspirin 81 mg tablet,delayed 81 mg PO DAILY 12/18/20 03/15/22 release cholecalciferol (vitamin D3) 50 50 mcg PO DAILY 12/18/20 03/15/22 mcg (2,000 unit) capsule diphenhydramine HCl 25 mg capsule 25 mg PO BEDTIME 01/05/21 03/15/22 (Benadryl) vitamin B complex (B 1 tab PO DAILY 07/27/21 03/15/22 Complex-Vitamin B12 tablet) Previous Rx's Medication Instructions Recorded fluticasone fur. 200 mcg-umeclid 1 inh inhalation DAILY 30 days #60 12/18/20 62.5 mcg-vilant 25 mcg ea inhalat.powder (Trelegy Ellipta) albuterol sulfate 90 mcg/actuation 1 puff inhalation QID PRN for 10/14/21 aerosol inhaler wheezing #17 grams ipratropium 0.5 mg-albuterol 3 mg 3 ml inhalation BID 30 days #180 mL 02/15/22 (2.5 mg base)/3 mL nebulization soln gabapentin 300 mg capsule 300 mg PO BEDTIME #90 caps 02/23/22 omeprazole 20 mg capsule,delayed 20 mg PO DAILY #90 caps 05/12/22 release fluoxetine 40 mg capsule 40 mg PO DAILY #90 caps 06/21/22 amlodipine 5 mg tablet 5 mg PO DAILY #90 tabs 06/29/22 metoprolol succinate 25 mg 25 mg PO DAILY #90 tabs 07/12/22 tablet,extended release 24 hr celecoxib 200 mg capsule 200 mg PO DAILY #90 caps 11/08/22 cyclobenzaprine 5 mg tablet 10 mg PO BEDTIME PRN for muscle 11/30/22 spasm #30 tabs furosemide 40 mg tablet 40 mg PO DAILY #90 tabs 12/03/22 losartan 50 mg tablet 50 mg PO DAILY #90 tabs 12/27/22 nitrofurantoin 100 mg PO Q12H 7 days #14 caps 02/06/23 monohydrate/macrocrystals 100 mg capsule (Macrobid) <ANNELIESE Mendoza - Last Filed: 02/06/23 18:24> Allergies/Adverse reactions: Allergies Allergy/AdvReac Type Severity Reaction Status Date / Time hydromorphone [From DILAUDID] Allergy Intermediate hives, Verified 02/06/23 18:21 itching tramadol [From ULTRAM] Allergy Intermediate hives,itchi Verified 02/06/23 18:21 ng gabapentin AdvReac Intermediate Dizziness,GI Verified 02/06/23 18:21 upset <ANNELIESE Mendoza - Last Filed: 02/06/23 18:24> Review of Systems Constitutional: Constitutional: Reports as per HPI, Denies chills, Denies fatigue, Denies fever(s) and Denies headache(s) <Vini Hines - Last Filed: 02/06/23 20:58> ENT: Denies headache(s) <Vini Hines - Last Filed: 02/06/23 20:58> Cardiovascular: Cardiovascular: Denies chest pain and Denies dyspnea <Vini Hines - Last Filed: 02/06/23 20:58> Respiratory: Respiratory: Denies cough and Denies dyspnea <Vini Hines - Last Filed: 02/06/23 20:58> Gastrointestinal: Gastrointestinal: Denies abdominal pain, Denies constipation and Denies vomiting <Vini Hines - Last Filed: 02/06/23 20:58> Genitourinary: Genitourinary: Reports dysuria and Reports urinary urgency <Vini Hines - Last Filed: 02/06/23 20:58> Neurologic: Denies headache(s) and Denies focal weakness <Viin Hines - Last Filed: 02/06/23 20:58> Endocrine: Endocrine: Denies fatigue <Vini Hines - Last Filed: 02/06/23 20:58> PMF Past Medical History Medical History: Medical History (Updated 02/06/23 @ 20:57 by Vini Hines) Annual physical exam Anxiety, generalized Atrial arrhythmia Breast CA Cardiac LV ejection fraction of 40-49% Chronic GERD Chronic systolic (congestive) heart failure Colonoscopy refused COPD (chronic obstructive pulmonary disease) Excessive drinking of alcohol Flank pain, chronic History of breast cancer in female Hx of abdominal pain Hx of screening mammography Hypertension, essential Muscle spasm Neuropathy NICM (nonischemic cardiomyopathy) Osteoarthritis Pulmonary nodules Rheumatoid arthritis Vitamin B12 deficiency Vitamin D deficiency <ANNELIESE Mendoza - Last Filed: 02/06/23 18:24> Surgical History: Surgical History (Updated 02/23/22 @ 08:41 by Adele Knight MD) H/O colonoscopy H/O right mastectomy History of section History of esophagogastroduodenoscopy (EGD) History of hysterectomy History of mastectomy History of removal of Port-a-Cath <ANNELIESE Mendoza - Last Filed: 02/06/23 18:24> Family History Family History: Family History Father Non-Hodgkin lymphoma Mother CVD (cardiovascular disease) Brother Lung disease Sister No problems noted. Maternal Grandfather Colon cancer Maternal Grandmother CVD (cardiovascular disease) Paternal Grandfather Unknown family medical history Paternal Grandmother Unknown family medical history Brother No problems noted. Son No problems noted. Son No problems noted. Daughter No problems noted. 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 needs: No Hearing needs: No Vision needs: Yes (wears glasses ) <ANNELIESE Mendoza - Last Filed: 02/06/23 18:24> Physical Exam Vital Signs: Vital Signs: Last Vital Signs Temp 97.8 F 02/06/23 20:30 Pulse 80 02/06/23 20:30 Resp 02/06/23 20:30 BP 151/67 H 02/06/23 20:30 Pulse Ox 98 02/06/23 20:30 O2 Del Method Room Air 02/06/23 20:30 BMI result Body Mass Index 31.3 <ANNELIESE Mendoza - Last Filed: 02/06/23 18:24> Vital Signs: Last Vital Signs Temp 97.8 F 02/06/23 20:30 Pulse 80 02/06/23 20:30 Resp 02/06/23 20:30 BP 151/67 H 02/06/23 20:30 Pulse Ox 98 02/06/23 20:30 O2 Del Method Room Air 02/06/23 20:30 BMI result Body Mass Index 31.3 <Vini Hines - Last Filed: 02/06/23 20:58> Const: General: healthy appearing, comfortable, no acute distress, alert and awake <Vini Hines - Last Filed: 02/06/23 20:58> Nutritional Appearance: well nourished <Vini Hines - Last Filed: 02/06/23 20:58> Orientation/consciousness: patient oriented x3 <Vini Hines - Last Filed: 02/06/23 20:58> HEENT: Head: Yes normocephalic and Yes atraumatic < Last Filed: 02/06/23 20:58> Throat: Yes posterior oropharynx normal < Last Filed: 02/06/23 20:58> Eyes: Eyelids: Yes eyelids normal < Last Filed: 02/06/23 20:58> Conjunctivae: conjunctivae normal < Last Filed: 02/06/23 20:58> Sclerae: sclerae normal < Last Filed: 02/06/23 20:58> Corneas: corneas normal < Last Filed: 02/06/23 20:58> EOM: EOMs intact bilaterally < Last Filed: 02/06/23 20:58> Neck: Neck: Yes full ROM < Last Filed: 02/06/23 20:58> Cardio: Rate: regular rate < Last Filed: 02/06/23 20:58> Rhythm: regular rhythm < Last Filed: 02/06/23 20:58> GI: Inspection: No distended < Last Filed: 02/06/23 20:58> Palpation (GI): Soft to palpation, not firm, nontender, no guarding and not rigid < Last Filed: 02/06/23 20:58> Auscultation: normoactive bowel sounds < Last Filed: 02/06/23 20:58> Neuro: General: patient oriented x3 < Last Filed: 02/06/23 20:58> Course Course Course Narrative: RME- 18:20PM - 73yoF with a PMHx of anxiety, atrial arrhythmia, breast cancer, GERD, systolic CHF, COPD, neuropathy, nonischemic cardiomyopathy, osteoarthritis, pulmonary nodules, rheumatoid arthritis, vitamin B12 and D deficiency who is presenting to the ED with c/o of few days of urinary frequency/urgency for the past week and today she has been unable to urinate the last time she urinated was earlier this morning. Reports suprapubic abdominal tenderness/fullness/pressure sensation. Reports that she feels like she needs to pee although unable to urinate. Reports she has never had this in the past. Denies any fevers, chills, worsening back pain, flank pain, hematuria or any other symptoms complaints or concerns at this time. Plan: Will obtain a bladder scan, obtain labs, UA and imaging of her abdomen and pelvis. <ANNELIESE Mendoza - Last Filed: 02/06/23 18:24> Medications Administered Discontinued Medications Generic Name Dose Route Start Last Admin Trade Name Freq PRN Reason Stop Dose Admin Magnesium Oxide 400 mg 02/06/23 20:29 02/06/23 20:48 Magnesium Oxide 400 Mg Tablet PO 02/06/23 20:30 400 mg ONCE ONE Administration <ANNELIESE Mendoza - Last Filed: 02/06/23 18:24> Medications Administered Discontinued Medications Generic Name Dose Route Start Last Admin Trade Name Freq PRN Reason Stop Dose Admin Magnesium Oxide 400 mg 02/06/23 20:29 02/06/23 20:48 Magnesium Oxide 400 Mg Tablet PO 02/06/23 20:30 400 mg ONCE ONE Administration <Vini Hines - Last Filed: 02/06/23 20:58> Medical Decision Making Medical Decision Making [facility] Narrative: On patient's bladder scan was was significant for [address] scan did not show any acute intra-abdominal pelvic pathology. Patient was able to urinate which is significant for a UTI. Will treat this with Macrobid b.i.d. x7 days. Patient's labs are significant for hypomagnesemia which will be replaced p.o.. No other worrisome abnormalities. No evidence of sepsis <Vini Hines - Last Filed: 02/06/23 20:58> Differential Diagnosis UTI Urinary retention Bladder mass Obstructive uropathy Hypomagnesemia <Vini Hines - Last Filed: 02/06/23 20:58> Lab Data [facility] Lab Attestation statement: I reviewed the patient's lab results. <Vini Hines - Last Filed: 02/06/23 20:58> Result Diagrams: 02/06/23 19:29 02/06/23 19:29 <ANNELIESE Mendoza - Last Filed: 02/06/23 18:24> Labs: Lab Results 02/06/23 02/06/23 02/06/23 Range/Units 19:29 19:29 19:29 WBC 8.1 (4.8-10.8) X10*3/uL RBC 3.51 L (4.20-5.50) X10*6/uL Hgb 12.6 (12.0-16.0) g/dl Hct 38.5 (37.0-47.0) % MCV 109.7 H (80.0-98.0) fL MCH 35.9 H (27.0-33.0) pg MCHC 32.7 (31.0-35.0) g/dl RDW 12.7 (11.0-16.0) % Plt Count 105 L D (160-400) X10*3/uL MPV 12.6 H (9.4-12.3) fL Immature Gran % (Auto) 0.4 (0.0-0.4) % Neut % (Auto) 69.9 (45-73) % Lymph % (Auto) 17.3 L (20-40) % Trinity % (Auto) 10.6 (2-11) % Eos % (Auto) 1.2 (0-4) % Baso % (Auto) 0.6 (0-2) % Lymph # (Auto) 1.4 (1.2-4.9) X10*3/uL Trinity # (Auto) 0.9 (0.1-1.2) X10*3/uL Eos # (Auto) 0.1 (0.0-0.4) X10*3/uL Baso # (Auto) 0.1 (0.0-0.2) X10*3/uL Abs Immat Gran (auto) 0.03 (0.00-0.03) X10*3/uL Absolute Neuts (auto) 5.7 (2.0-8.3) x10*3/uL Absolute Nucleated RBC 0.000 (0.0-0.012) X10*3/uL Nucleated RBC % (auto) 0.0 (0.0-0.2) /100WBC PT 12.6 (10.0-13.1) SEC INR 1.1 (0.9-1.1) Sodium 139 (135-145) mmol/L Potassium 4.4 (3.3-5.1) mmol/L Chloride 103 (96-108) mmol/L Carbon Dioxide 23 (22-29) mmol/L Anion Gap 17 (12-20) BUN 27 H (9-16) mg/dL Creatinine 1.21 (0.5-1.4) mg/dL Estim Creat Clear Calc 49.3 Estimated GFR 44 Random Glucose 139 H (60-115) mg/dL Calcium 9.4 (8.4-10.2) mg/dL Magnesium 1.4 L* (1.6-2.6) mg/dL Total Bilirubin 2.2 H (0.0-1.0) mg/dL AST 111 H (5-31) U/L ALT 42 H (0-31) U/L Alkaline Phosphatase 138 H (39-117) U/L Total Protein 7.2 (6.5-8.0) g/dL Albumin 3.9 (3.5-5.0) g/dL Urine Color Urine Appearance Urine pH (5.0-9.0) Ur Specific Jeddo (1.005-1.025) Urine Protein (Neg-Trace) mg/dL Urine Glucose (UA) (Negative) mg/dL Urine Ketones (Negative) mg/dL Urine Blood (Negative) Urine Nitrite (Negative) Ur Leukocyte Esterase (Negative) 02/06/23 Range/Units 20:30 WBC (4.8-10.8) X10*3/uL RBC (4.20-5.50) X10*6/uL Hgb (12.0-16.0) g/dl Hct (37.0-47.0) % MCV (80.0-98.0) fL MCH (27.0-33.0) pg MCHC (31.0-35.0) g/dl RDW (11.0-16.0) % Plt Count (160-400) X10*3/uL MPV (9.4-12.3) fL Immature Gran % (Auto) (0.0-0.4) % Neut % (Auto) (45-73) % Lymph % (Auto) (20-40) % Trinity % (Auto) (2-11) % Eos % (Auto) (0-4) % Baso % (Auto) (0-2) % Lymph # (Auto) (1.2-4.9) X10*3/uL Trinity # (Auto) (0.1-1.2) X10*3/uL Eos # (Auto) (0.0-0.4) X10*3/uL Baso # (Auto) (0.0-0.2) X10*3/uL Abs Immat Gran (auto) (0.00-0.03) X10*3/uL Absolute Neuts (auto) (2.0-8.3) x10*3/uL Absolute Nucleated RBC (0.0-0.012) X10*3/uL Nucleated RBC % (auto) (0.0-0.2) /100WBC PT (10.0-13.1) SEC INR (0.9-1.1) Sodium (135-145) mmol/L Potassium (3.3-5.1) mmol/L Chloride (96-108) mmol/L Carbon Dioxide (22-29) mmol/L Anion Gap (12-20) BUN (9-16) mg/dL Creatinine (0.5-1.4) mg/dL Estim Creat Clear Calc Estimated GFR Random Glucose (60-115) mg/dL Calcium (8.4-10.2) mg/dL Magnesium (1.6-2.6) mg/dL Total Bilirubin (0.0-1.0) mg/dL AST (5-31) U/L ALT (0-31) U/L Alkaline Phosphatase (39-117) U/L Total Protein (6.5-8.0) g/dL Albumin (3.5-5.0) g/dL Urine Color Dark Yellow Urine Appearance Turbid Urine pH 5.5 (5.0-9.0) Ur Specific Jeddo 1.020 (1.005-1.025) Urine Protein 100 (2+) H (Neg-Trace) mg/dL Urine Glucose (UA) Negative (Negative) mg/dL Urine Ketones Trace (Negative) mg/dL Urine Blood Moderate (2+) H (Negative) Urine Nitrite Positive H (Negative) Ur Leukocyte Esterase Large (3+) H (Negative) <ANNELIESE Mendoza - Last Filed: 02/06/23 18:24> Lab Results 02/06/23 02/06/23 02/06/23 Range/Units 19:29 19:29 19:29 WBC 8.1 (4.8-10.8) X10*3/uL RBC 3.51 L (4.20-5.50) X10*6/uL Hgb 12.6 (12.0-16.0) g/dl Hct 38.5 (37.0-47.0) % MCV 109.7 H (80.0-98.0) fL MCH 35.9 H (27.0-33.0) pg MCHC 32.7 (31.0-35.0) g/dl RDW 12.7 (11.0-16.0) % Plt Count 105 L D (160-400) X10*3/uL MPV 12.6 H (9.4-12.3) fL Immature Gran % (Auto) 0.4 (0.0-0.4) % Neut % (Auto) 69.9 (45-73) % Lymph % (Auto) 17.3 L (20-40) % Trinity % (Auto) 10.6 (2-11) % Eos % (Auto) 1.2 (0-4) % Baso % (Auto) 0.6 (0-2) % Lymph # (Auto) 1.4 (1.2-4.9) X10*3/uL Trinity # (Auto) 0.9 (0.1-1.2) X10*3/uL Eos # (Auto) 0.1 (0.0-0.4) X10*3/uL Baso # (Auto) 0.1 (0.0-0.2) X10*3/uL Abs Immat Gran (auto) 0.03 (0.00-0.03) X10*3/uL Absolute Neuts (auto) 5.7 (2.0-8.3) x10*3/uL Absolute Nucleated RBC 0.000 (0.0-0.012) X10*3/uL Nucleated RBC % (auto) 0.0 (0.0-0.2) /100WBC PT 12.6 (10.0-13.1) SEC INR 1.1 (0.9-1.1) Sodium 139 (135-145) mmol/L Potassium 4.4 (3.3-5.1) mmol/L Chloride 103 (96-108) mmol/L Carbon Dioxide 23 (22-29) mmol/L Anion Gap 17 (12-20) BUN 27 H (9-16) mg/dL Creatinine 1.21 (0.5-1.4) mg/dL Estim Creat Clear Calc 49.3 Estimated GFR 44 Random Glucose 139 H (60-115) mg/dL Calcium 9.4 (8.4-10.2) mg/dL Magnesium 1.4 L* (1.6-2.6) mg/dL Total Bilirubin 2.2 H (0.0-1.0) mg/dL AST 111 H (5-31) U/L ALT 42 H (0-31) U/L Alkaline Phosphatase 138 H (39-117) U/L Total Protein 7.2 (6.5-8.0) g/dL Albumin 3.9 (3.5-5.0) g/dL Urine Color Urine Appearance Urine pH (5.0-9.0) Ur Specific Jed[place] (1.005-1.025) Urine Protein (Neg-Trace) mg/dL Urine Glucose (UA) (Negative) mg/dL Urine Ketones (Negative) mg/dL Urine Blood (Negative) Urine Nitrite (Negative) Ur Leukocyte Esterase (Negative) 02/06/23 Range/Units 20:30 WBC (4.8-10.8) X10*3/uL RBC (4.20-5.50) X10*6/uL Hgb (12.0-16.0) g/dl Hct (37.0-47.0) % MCV (80.0-98.0) fL MCH (27.0-33.0) pg MCHC (31.0-35.0) g/dl RDW (11.0-16.0) % Plt Count (160-400) X10*3/uL MPV (9.4-12.3) fL Immature Gran % (Auto) (0.0-0.4) % Neut % (Auto) (45-73) % Lymph % (Auto) (20-40) % Trinity % (Auto) (2-11) % Eos % (Auto) (0-4) % Baso % (Auto) (0-2) % Lymph # (Auto) (1.2-4.9) X10*3/uL Trinity # (Auto) (0.1-1.2) X10*3/uL Eos # (Auto) (0.0-0.4) X10*3/uL Baso # (Auto) (0.0-0.2) X10*3/uL Abs Immat Gran (auto) (0.00-0.03) X10*3/uL Absolute Neuts (auto) (2.0-8.3) x10*3/uL Absolute Nucleated RBC (0.0-0.012) X10*3/uL Nucleated RBC % (auto) (0.0-0.2) /100WBC PT (10.0-13.1) SEC INR (0.9-1.1) Sodium (135-145) mmol/L Potassium (3.3-5.1) mmol/L Chloride (96-108) mmol/L Carbon Dioxide (22-29) mmol/L Anion Gap (12-20) BUN (9-16) mg/dL Creatinine (0.5-1.4) mg/dL Estim Creat Clear Calc Estimated GFR Random Glucose (60-115) mg/dL Calcium (8.4-10.2) mg/dL Magnesium (1.6-2.6) mg/dL Total Bilirubin (0.0-1.0) mg/dL AST (5-31) U/L ALT (0-31) U/L Alkaline Phosphatase (39-117) U/L Total Protein (6.5-8.0) g/dL Albumin (3.5-5.0) g/dL Urine Color Dark Yellow Urine Appearance Turbid Urine pH 5.5 (5.0-9.0) Ur Specific Jed[place] 1.020 (1.005-1.025) Urine Protein 100 (2+) H (Neg-Trace) mg/dL Urine Glucose (UA) Negative (Negative) mg/dL Urine Ketones Trace (Negative) mg/dL Urine Blood Moderate (2+) H (Negative) Urine Nitrite Positive H (Negative) Ur Leukocyte Esterase Large (3+) H (Negative) <Vini Hines - Last Filed: 02/06/23 20:58> Discharge Plan Discharge Clinical Impression: Urinary tract infection, Hypomagnesemia <ANNELIESE Mendoza - Last Filed: 02/06/23 18:24> Patient Disposition: Home, Self-Care <ANNELIESE Mendoza - Last Filed: 02/06/23 18:24> Instructions: Urinary Tract Infection in Older Adults (ED) <ANNELIESE Mendoza - Last Filed: 02/06/23 18:24> Additional Instructions: Your urine sample showed that you have a UTI. Take Macrobid twice daily for the next 7 days Your magnesium was also low. This was replaced today. You should have your doctor repeat it in 1-2 weeks <ANNELIESE Mendoza - Last Filed: 02/06/23 18:24> Prescriptions: New nitrofurantoin monohyd/m-cryst [Macrobid] 100 mg capsule 100 mg PO Q12H 7 Days Qty: 14 0RF Rx Instructions: must administer with a meal/food No Action albuterol sulfate 90 mcg/actuation HFA aerosol inhaler 1 puff inhalation QID PRN (Reason: for wheezing) Qty: 17 4RF omeprazole 20 mg capsule,delayed release(DR/EC) 20 mg PO DAILY Qty: 90 3RF fluoxetine 40 mg capsule 40 mg PO DAILY Qty: 90 3RF amlodipine 5 mg tablet 5 mg PO DAILY Qty: 90 3RF metoprolol succinate 25 mg tablet extended release 24 hr 25 mg PO DAILY Qty: 90 3RF celecoxib 200 mg capsule 200 mg PO DAILY Qty: 90 3RF cyclobenzaprine 5 mg tablet 10 mg PO BEDTIME PRN (Reason: for muscle spasm) Qty: 30 0RF furosemide 40 mg tablet 40 mg PO DAILY Qty: 90 3RF losartan 50 mg tablet 50 mg PO DAILY Qty: 90 3RF gabapentin 300 mg capsule 300 mg PO BEDTIME Qty: 90 1RF aspirin 81 mg tablet,delayed release (DR/EC) 81 mg PO DAILY cholecalciferol (vitamin D3) 50 mcg (2,000 unit) capsule 50 mcg PO DAILY acetaminophen [Tylenol Extra Strength] 500 mg tablet 500 mg PO Q6H PRN (Reason: Pain) Trelegy Ellipta 200-62.5-25 mcg blister with device 1 inh inhalation DAILY 30 Days Qty: 60 12RF diphenhydramine HCl [Benadryl] 25 mg capsule 25 mg PO BEDTIME vitamin B complex [B Complex-Vitamin B12] Tablet 1 tab PO DAILY ipratropium-albuterol 0.5 mg-3 mg(2.5 mg base)/3 mL solution for nebulization 3 ml inhalation BID 30 Days Qty: 180 11RF <ANNELIESE Mendoza - Last Filed: 02/06/23 18:24>
[2023-02-06 19:34] LABS: MANUAL DIFF FLAG NO
[2023-02-06 19:35] LABS: Basophils Absolute Auto 0.1 X10*3/uL (0.0-0.2); Basophils Percent Auto 0.6 % (0-2); Eosinophils Absolute Auto 0.1 X10*3/uL (0.0-0.4); Eosinophils Percent Auto 1.2 % (0-4); Hematocrit 38.5 % (37.0-47.0); Hemoglobin 12.6 g/dl (12.0-16.0); Imm Gran Abs Auto 0.03 X10*3/uL (0.00-0.03); Imm Gran Pct Auto 0.4 % (0.0-0.4); Lymphocytes Absolute Auto 1.4 X10*3/uL (1.2-4.9); Lymphocytes Percent Auto 17.3 % (20-40); Mean Corpuscular HGB Conc 32.7 g/dl (31.0-35.0); Mean Corpuscular Hemoglobin 35.9 pg (27.0-33.0); Mean Corpuscular Volume 109.7 fL (80.0-98.0); Mean Platelet Volume 12.6 fL (9.4-12.3); Monocytes Absolute Auto 0.9 X10*3/uL (0.1-1.2); Monocytes Percent Auto 10.6 % (2-11); Neutrophils Absolute Auto 5.7 x10*3/uL (2.0-8.3); Neutrophils Percent Auto 69.9 % (45-73); Platelet Count 105 X10*3/uL (160-400); Red Blood Count 3.51 X10*6/uL (4.20-5.50); Red Cell Distribution Width 12.7 % (11.0-16.0); White Blood Count 8.1 X10*3/uL (4.8-10.8)
[2023-02-06 19:41] LABS: INTERNATIONAL NORM RATIO 1.1 (0.9-1.1); Prothrombin Time 12.6 SEC (10.0-13.1)
[2023-02-06 19:51] LABS: Alanine Aminotransferase 42 U/L (0-31); Albumin Level 3.9 g/dL (3.5-5.0); Alkaline Phosphatase 138 U/L (39-117); Anion Gap 17 (12-20); Aspartate Amino Transferase 111 U/L (5-31); Bilirubin Total 2.2 mg/dL (0.0-1.0); Blood Urea Nitrogen 27 mg/dL (9-16); Calcium 9.4 mg/dL (8.4-10.2); Carbon Dioxide 23 mmol/L (22-29); Chloride 103 mmol/L (96-108); Creatinine Clr Calc Pharmacy 49.3; Estimated Glomerular Filt Rate 44; Glucose Random 139 mg/dL (60-115); Magnesium 1.4 mg/dL (1.6-2.6); Potassium 4.4 mmol/L (3.3-5.1); Sodium 139 mmol/L (135-145); Total Protein 7.2 g/dL (6.5-8.0)
[2023-02-06 20:30] VITALS: BP 151/67; PULSE 80; RESP 16; TEMP 36.6; O2SAT 98
--- NOTE | 2023-02-06 20:33 | MHC.EDTECH ---
pt urine sample collected and sent to lab ,vitals sign taken .
[2023-02-06 20:41] LABS: Appearance Urine Turbid; Color Urine Dark Yellow; Glucose Urine UA Negative (Negative); Leukocyte Esterase Urine Large (3+) (Negative); Nitrite Urine Positive (Negative); PH 5.5 (5.0-9.0); UMIC TRIGGER UACC YES; Urine Blood Moderate (2+) (Negative); Urine Ketones Trace mg/dL (Negative); Urine Protein 100 (2+) mg/dL (Neg-Trace)
[2023-02-06] MEDS: Magnesium Oxide 400 MG TABLET PO (20:48)
[2023-02-06 20:52] LABS: Bacteria Urine 4+ (None Seen); RBC Urine >20 /HPF (0-2); UACC Culture Trigger YES; WBC Urine >50 /HPF (0-5)
--- NOTE | 2023-02-06 21:29 | PC.NURSE ---
Discharge instructions reviewed with pt. Pt verbalizes understanding. Ambulatory with steady gait.
== END 2023-02-06 21:30 | disposition home or self-care (01) ==
PROVIDERS: Physician Assistant Medical; Emergency Provider Internal Medicine; PCP Internal Medicine
DX: N39.0 Urinary tract infection, site not specified (principal); E83.42 Hypomagnesemia; Z79.899 Other long term (current) drug therapy
CPT/HCPCS: 36415; 51798; 74176; 80053; 81001; 83735; 85025; 85610; 87086; 99284

== ENCOUNTER 2023-03-01 14:02 | Outpatient (REF) | payer MEDICARE, SELFPAY ==
--- NOTE | ~2023-03-01 | XR_ITS ---
EXAMINATION: XR KNEE, RIGHT CLINICAL INFORMATION: Pain COMPARISON: Previous exam February 2021 TECHNIQUE: Four views of the right knee. FINDINGS: Bone alignment is normal. No fracture or dislocation. There is mild degenerative meniscal calcification. There is a small osteophyte at the patellofemoral joint and subchondral irregularity of the superior patella appreciated on the lateral view. There is no joint effusion. XR/XR knee RT 4V IMPRESSION: Mild degenerative changes.
== END 2023-03-01 14:03 | disposition home or self-care (01) ==
LOC: HO.HMGCX 14:02
PROVIDERS: PCP Internal Medicine; Visit Provider Internal Medicine
DX: M25.561 Pain in right knee (principal)
CPT/HCPCS: 73564

== ENCOUNTER → 2023-03-15 14:26 | Outpatient (BNVA) | payer MEDICARE, SELFPAY | PROVIDERS: PCP Internal Medicine; Referring Provider Internal Medicine; Visit Provider Internal Medicine | DX: I11.0 Hypertensive heart disease with heart failure (principal); I50.22 Chronic systolic (congestive) heart failure; I42.8 Other cardiomyopathies; I49.8 Other specified cardiac arrhythmias; R94.31 Abnormal electrocardiogram [ECG] [EKG]; F10.10 Alcohol abuse, uncomplicated | CPT/HCPCS: 93005; 99212 ==

== ENCOUNTER 2023-03-22 14:02 | Outpatient (REF) | payer MEDICARE, SELFPAY ==
--- NOTE | ~2023-03-22 | MM_ITS ---
EXAMINATION: BONE DENSITOMETRY CLINICAL INDICATION: Low back pain, unspecified. COMPARISON: None (current study represents initial baseline exam). TECHNIQUE: Using a [employer] DXA System (software version: 13.1) manufactured by [employer], dual-energy x-ray absorptiometry was performed of the lumbar spine and left hip. The images are of good technical quality. Summary results are attached. FINDINGS: AP SPINE L1-L4: BMD 1.431 g/cm2, Z-score 3.1, T-score 2.1, normal. LEFT FEMUR, NECK: BMD 0.839 g/cm2, Z-score -0.1, T-score -1.4, osteopenia. LEFT FEMUR, TOTAL: BMD 1.029 g/cm2, Z-score 1.2, T-score 0.2, normal. IDENTIFIED RISK FACTORS: Bilateral oophorectomy, chronic liver disease, hysterectomy, low calcium intake, menopause, rheumatoid arthritis, secondary osteoporosis. HISTORY OF FRACTURE: None listed. MEDICATIONS: Vitamin D. MM/XR DEXA axial skeleton IMPRESSION: 1. DIAGNOSIS: Osteopenia based on the lowest T-score value of -1.4 in the femoral neck applying World Health Organization criteria. 2. 10-YEAR FRACTURE RISK PREDICTION, FRAX: Major osteoporotic fracture (clinical spine, forearm, hip or shoulder) 12.6%. Hip fracture 2.0%. 3. Treatment Recommendations: NOF guidelines recommend consideration for treatment in postmenopausal women and men age 50 and older presenting with the following: -A hip or vertebral (clinical or morphometric) fracture. -T-score less than or equal to -2.5 at the femoral neck or spine after appropriate evaluation to exclude secondary causes. -Low bone mass at the hip or spine and a 10-year fracture probability by FRAX of greater than or equal to 3% for hip fracture or greater than or equal to 20% for major osteoporotic fracture based on the [place] adapted WHO algorithm. 4. Other Recommendations: All treatment decisions require clinical judgment and consideration of individual patient factors, including patient preferences, comorbidities, previous drug use, risk factors not captured in the FRAX model (e.g. frailty, falls, vitamin D deficiency, increased bone turnover, interval significant decline in bone density) and possible under or overestimation of fracture risk by FRAX. Additional medical evaluation for secondary cause of low bone mineral density may be appropriate. FUTURE SCAN RECOMMENDATION: People with diagnosed cases of osteoporosis or at high risk for fracture should have regular bone mineral density tests. For patients eligible for Medicare, routine testing is allowed once every 2 years. The testing frequency can be increased to one year for patients who have rapidly progressing disease, those who are receiving or discontinuing medical therapy to restore bone mass, or have additional risk factors.
== END 2023-03-22 14:03 | disposition home or self-care (01) ==
LOC: HO.MAMMO 14:02
PROVIDERS: PCP Internal Medicine; Visit Provider Internal Medicine
DX: Z13.820 Encounter for screening for osteoporosis (principal); Z78.0 Asymptomatic menopausal state; M54.50 Low back pain, unspecified
CPT/HCPCS: 77080

== ENCOUNTER 2023-03-25 08:51 | Outpatient (REF) | payer MEDICARE, SELFPAY ==
[2023-03-25 12:11] LABS: Estimated Average Glucose 91 mg/dL; Hemoglobin A1c % 4.8 %
[2023-03-25 12:45] LABS: Alanine Aminotransferase 30 U/L (0-31); Alkaline Phosphatase 121 U/L (39-117); Anion Gap 16 (12-20); Aspartate Amino Transferase 87 U/L (5-31); Blood Urea Nitrogen 25 mg/dL (9-16); Calcium 9.3 mg/dL (8.4-10.2); Carbon Dioxide 21 mmol/L (22-29); Chloride 103 mmol/L (96-108); Cholesterol 137 mg/dL; Estimated Glomerular Filt Rate 37; Glucose Fasting 102 mg/dL (60-99); HDL Cholesterol 15 mg/dL; LDL Cholesterol Calculated 100 mg/dl; Magnesium 1.7 mg/dL (1.6-2.6); Potassium 4.7 mmol/L (3.3-5.1); Sodium 135 mmol/L (135-145); Total Protein 7.3 g/dL (6.5-8.0); Triglycerides 110 mg/dL
== END 2023-03-25 08:52 | disposition home or self-care (01) ==
LOC: HO.HMGCLDS 08:51
PROVIDERS: PCP Internal Medicine; Visit Provider Internal Medicine
DX: R73.9 Hyperglycemia, unspecified (principal); E83.42 Hypomagnesemia
CPT/HCPCS: 36415; 80053; 80061; 83036; 83735

== ENCOUNTER 2023-05-05 09:02 | Outpatient (AMB) | payer MEDICARE, SELFPAY ==
--- NOTE | 2023-05-05 09:09 | MHC.OFFWIV ---
Intake Vital Signs 05/05/23 09:15 Height 5 ft 7 in BP 100/60 Blood Pressure Location Lt brachial Position Sitting Pulse 70 Pulse Source Pulse Oximeter Temp 97.4 F Temp Source Temporal Artery Scan Pulse Oximetry (%) 98 Oxygen Delivery Method Room Air Intake Visit Reasons: EST/leg swelling Intake Note: Patient here for bilat feet swelling for about a week. no injuries, she states she recently started magnesium sulfate and is wondering if that could have caused it. Patient Tobacco Use Status: Former Tobacco user Quit Date: 1994 Allergies hydromorphone [From DILAUDID] Allergy (Intermediate, Verified 05/05/23 09:15) hives, itching tramadol [From ULTRAM] Allergy (Intermediate, Verified 05/05/23 09:15) hives,itching gabapentin Adverse Reaction (Intermediate, Verified 05/05/23 09:15) Dizziness,GI upset Do you need a note to return to daycare/school/sports/work: No HPI HPI Comments History of Present Illness Details 0938 73-year-old female history of hyper, hypertension, breast cancer status post chemotherapy and lumpectomy presenting to the clinic for lower extremity swelling for the past week, progressively worsening, patient reports this is never happened to her before, patient is prescribed 40 mg of furosemide daily, taking it, despite this swelling progresses, and has worsened. Patient reports shortness of breath which is worsening both at rest and with exertion. Patient denies chest pain, fevers, chills, nausea, vomiting, abdominal pain, headache, vision changes, dizziness. She does report associated fatigue, malaise and weakness. Physical exam with 2+ pitting edema from the knees down L>R and diminished breath sounds bilaterally w/ audible wheezing and labored breathing This is likely dependent edema, concerns for possible CHF. Unlikely ACS. Concerns for DVT and possible PE due to patient risk factors Plan- ekg, xray, labs 1029 Ambulatory O2 98% to 96% with ambulation patient very winded. Xray with what appears to be venous congestion. Labs pending. EKG nonischemic. Patient to go to ED concerns for PE vs DVT vs CHF [facility] Medical History Annual physical exam Anxiety, generalized Atrial arrhythmia Breast CA (~03/01/23) Cardiac LV ejection fraction of 40-49% Chronic GERD Chronic systolic (congestive) heart failure Colonoscopy refused COPD (chronic obstructive pulmonary disease) Excessive drinking of alcohol Flank pain, chronic History of breast cancer in female Hx of abdominal pain Hx of screening mammography Hypertension, essential Muscle spasm Neuropathy NICM (nonischemic cardiomyopathy) Osteoarthritis Pulmonary nodules Rheumatoid arthritis Vitamin B12 deficiency Vitamin D deficiency Surgical History H/O colonoscopy H/O right mastectomy History of section History of esophagogastroduodenoscopy (EGD) History of hysterectomy History of mastectomy History of removal of Port-a-Cath Family History Father Non-Hodgkin lymphoma Mother CVD (cardiovascular disease) Brother Lung disease Sister No problems noted. Maternal Grandfather Colon cancer Maternal Grandmother CVD (cardiovascular disease) Paternal Grandfather Unknown family medical history Paternal Grandmother Unknown family medical history Brother No problems noted. Son No problems noted. Son No problems noted. Daughter No problems noted. 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 needs: No Hearing needs: No Vision needs: Yes (wears glasses ) Review of Systems Const Details: Constitutional : No Weight loss, No Fever, No Chills, No Fatigue, No Malaise ENT/Mouth : No sore throat, No Rhinorrhea Eyes: No Eye Pain, No Swelling, No Redness Cardiovascular : No Chest Pain, No SOB, No Dyspnea on Exertion, No Orthopnea, + Edema, No Palpitations Respiratory : No Cough, No Sputum, No Wheezing Gastrointestinal : No Nausea, No Vomiting, No Diarrhea, No Constipation, No abdominal Pain, No Hematochezia, No Melena Genitourinary : No Dysuria, No Urinary Frequency, No Hematuria, Musculoskeletal : No joint pain, No Myalgias, No Joint Swelling Skin : No Skin Lesions, No rash Neuro : No Weakness, No Numbness, No Dizziness, No Headache Psych : No Anxiety/Panic, No Depression All other systems reviewed and are negative All systems reviewed & are unremarkable except as noted in HPI and below Physical Exam Vital Signs: Last Vital Signs Temp 97.4 F 05/05/23 09:15 Pulse 70 05/05/23 09:15 BP 100/60 05/05/23 09:15 Pulse Ox 98 05/05/23 09:15 Oxygen Delivery Method Room Air 05/05/23 09:15 vss Appearance: Alert.? Oriented X3.? Mild acute distress.? Head: Normocephalic, atraumatic, no step-offs or deformities Eyes: Pupils equal, round and reactive to light.? CVS: Normal heart rate and rhythm.? Pulses normal.? Respiratory: Mild respiratory distress.? Breath sounds diminished breath sounds bilaterally w/ audible wheezing and labored breathing ? Abdomen: Soft and nontender.? Skin: Skin warm and dry.? Normal skin color.? Normal skin turgor.? Extremities: 2+ pitting edema to b/l lower extremities from the knee down.? No calf ttp, negative curtis b/l. 5/5 strength to bilateral upper and lower extremities 2+ DP,AT,PT pulses equal and b/l. Back: No midline tenderness, no C-spine tenderness, full range of motion, no CVA tenderness bilaterally Neuro: Oriented X 3.? No motor deficit.? No sensory deficit. CN 2-12 intact Office Procedures EKG Details: Ventricular rate 76, QT/QTC normal, QRS normal, PA normal, EKG with normal sinus rhythm, low-voltage QRS, no ST elevations or inversions concerning for acute ischemia. [id number], Complete Assessment & Plan Assessment & Plan (1) Lower extremity edema: Code(s): R60.0 - Localized edema (2) Shortness of breath: Code(s): R06.02 - Shortness of breath Plan Take your medications as prescribed. If you were prescribed antibiotics today, it is important that you take your medication to their entirety, do not skip any doses, do not finish them early. Follow-up with your primary care provider this week. Return to the emergency department with new or worsening symptoms. Such as fevers, chills, chest pain, shortness of breath, nausea, vomiting, dizziness, headache, vision changes, lethargy In case of emergency call 911 Orders: Orders B Type Natriuretic Peptide Today R60.0 - Localized edema Comprehensive Met. Panel Today R60.0 - Localized edema Complete Blood Count Auto Diff Today R60.0 - Localized edema AMB EKG-In Office Today R06.02 - Shortness of breath, R60.0 - Localized edema Coding Level of Care Code Est Pt Level 3 (10646) Diagnoses Lower extremity edema R60.0 Shortness of breath R06.02 CPT Codes EKG - CPT: 21593-[id number], Complete ([id number])
[2023-05-05 09:15] VITALS: BP 100/60; PULSE 70; TEMP 36.3; O2SAT 98
== END 2023-05-05 11:59 | disposition home or self-care (01) ==
PROVIDERS: PCP Internal Medicine; Visit Provider Physician Assistant
DX: R60.0 Localized edema (principal); R06.02 Shortness of breath
CPT/HCPCS: 93000; 99213

== ENCOUNTER 2023-05-05 10:00 | Outpatient (REF) | payer MEDICARE, SELFPAY ==
--- NOTE | ~2023-05-05 | XR_ITS ---
EXAMINATION: XR CHEST CLINICAL INFORMATION: Shortness of breath. COMPARISON: Chest CT scan dated 01/01/2021. TECHNIQUE: 2 views of the chest were obtained. FINDINGS: No significant abnormality is noted involving the heart, lungs, mediastinum, bony thorax or soft tissues. XR/XR chest 2V IMPRESSION: No acute cardiopulmonary process.
[2023-05-05 13:19] LABS: MANUAL DIFF FLAG NO
[2023-05-05 13:41] LABS: Basophils Absolute Auto 0.1 X10*3/uL (0.0-0.2); Basophils Percent Auto 0.5 % (0-2); Eosinophils Absolute Auto 0.2 X10*3/uL (0.0-0.4); Eosinophils Percent Auto 2.1 % (0-4); Hematocrit 33.4 % (37.0-47.0); Hemoglobin 10.6 g/dl (12.0-16.0); Imm Gran Abs Auto 0.03 X10*3/uL (0.00-0.03); Imm Gran Pct Auto 0.3 % (0.0-0.4); Lymphocytes Absolute Auto 1.8 X10*3/uL (1.2-4.9); Lymphocytes Percent Auto 18.7 % (20-40); Mean Corpuscular HGB Conc 31.7 g/dl (31.0-35.0); Mean Corpuscular Hemoglobin 34.1 pg (27.0-33.0); Mean Corpuscular Volume 107.4 fL (80.0-98.0); Mean Platelet Volume 11.9 fL (9.4-12.3); Monocytes Percent Auto 11.1 % (2-11); Neutrophils Absolute Auto 6.3 x10*3/uL (2.0-8.3); Neutrophils Percent Auto 67.3 % (45-73); Platelet Count 171 X10*3/uL (160-400); Red Blood Count 3.11 X10*6/uL (4.20-5.50); Red Cell Distribution Width 14.1 % (11.0-16.0); White Blood Count 9.4 X10*3/uL (4.8-10.8)
[2023-05-05 13:56] LABS: Alanine Aminotransferase 22 U/L (0-31); Alkaline Phosphatase 112 U/L (39-117); Anion Gap 11 (12-20); Aspartate Amino Transferase 47 U/L (5-31); Bilirubin Total 1.7 mg/dL (0.0-1.0); Blood Urea Nitrogen 35 mg/dL (9-16); Calcium 9.5 mg/dL (8.4-10.2); Carbon Dioxide 23 mmol/L (22-29); Chloride 107 mmol/L (96-108); Estimated Glomerular Filt Rate 27; Glucose Random 112 mg/dL (60-115); Potassium 4.3 mmol/L (3.3-5.1); Sodium 137 mmol/L (135-145); Total Protein 7.2 g/dL (6.5-8.0)
[2023-05-05 14:26] LABS: B Type Natriuretic Peptide 287 pg/mL (<100)
== END 2023-05-05 10:01 | disposition home or self-care (01) ==
LOC: HO.HMGCX 10:00
PROVIDERS: PCP Internal Medicine; Visit Provider Physician Assistant
DX: R60.0 Localized edema (principal); R06.02 Shortness of breath
CPT/HCPCS: 36415; 71046; 80053; 83880; 85025

== ENCOUNTER 2023-05-05 10:52 | Emergency (ER) | payer MEDICARE, SELFPAY ==
--- NOTE | ~2023-05-05 | US_ITS ---
EXAMINATION: US VENOUS ULTRASOUND WITH DOPPLER LOWER EXTREMITY, BILATERAL CLINICAL INFORMATION: Bilateral lower extremity edema COMPARISON: None available. TECHNIQUE: Ultrasound of the deep veins is performed from the hip to the calf with compression sonography and color and pulse Doppler assessment. Spectral analysis with color-flow imaging is performed. FINDINGS: RIGHT: There is normal venous compression and respiratory variation and augmented flow. The visualized common femoral vein, superficial femoral vein, profunda femoral vein, popliteal vein, and the trifurcation region shows no evidence of deep venous thrombosis. There is a 5.0 x 1.4 x 3.5 cm Bruce's cyst. LEFT: There is normal venous compression and respiratory variation and augmented flow. The visualized common femoral vein, superficial femoral vein, profunda femoral vein, popliteal vein, and the trifurcation region shows no evidence of deep venous thrombosis. There is a 4.3 x 0.9 x 2.7 cm Bruce's cyst If the patient's symptoms persist, followup ultrasound in 5 days 7 days might be of value to exclude proximal propagation from a non-visualized calf vein. US/US venous duplex LE BI IMPRESSION: No DVT demonstrated in either lower extremity. Bilateral Bruce's cysts.
--- NOTE | 2023-05-05 11:14 | ED_ITS ---
HPI - General Adult General Chief complaint: General Medical Stated complaint: feet swelling Time Seen by Provider: 05/05/23 12:53 Related Data Home Medications Medication Instructions Recorded Confirmed aspirin 81 mg tablet,delayed 81 mg PO DAILY 12/18/20 03/15/23 release cholecalciferol (vitamin D3) 50 50 mcg PO DAILY 12/18/20 03/15/23 mcg (2,000 unit) capsule diphenhydramine HCl 25 mg capsule 25 mg PO BEDTIME 01/05/21 03/15/23 (Benadryl) vitamin B complex (B 1 tab PO DAILY 07/27/21 03/15/23 Complex-Vitamin B12 tablet) Previous Rx's Medication Instructions Recorded ipratropium 0.5 mg-albuterol 3 mg 3 ml inhalation BID 30 days #180 mL 02/15/22 (2.5 mg base)/3 mL nebulization soln omeprazole 20 mg capsule,delayed 20 mg PO DAILY #90 caps 05/12/22 release fluoxetine 40 mg capsule 40 mg PO DAILY #90 caps 06/21/22 amlodipine 5 mg tablet 5 mg PO DAILY #90 tabs 06/29/22 metoprolol succinate 25 mg 25 mg PO DAILY #90 tabs 07/12/22 tablet,extended release 24 hr celecoxib 200 mg capsule 200 mg PO DAILY #90 caps 11/08/22 cyclobenzaprine 5 mg tablet 10 mg PO BEDTIME PRN for muscle 11/30/22 spasm #30 tabs furosemide 40 mg tablet 40 mg PO DAILY #90 tabs 12/03/22 losartan 50 mg tablet 50 mg PO DAILY #90 tabs 12/27/22 nitrofurantoin 100 mg PO Q12H 7 days #14 caps 02/06/23 monohydrate/macrocrystals 100 mg capsule (Macrobid) fluticasone fur. 200 mcg-umeclid 1 inh inhalation DAILY 30 days #60 03/01/23 62.5 mcg-vilant 25 mcg ea inhalat.powder (Trelegy Ellipta) gabapentin 300 mg capsule 300 mg PO BEDTIME #90 caps 03/01/23 magnesium oxide 400 mg (241.3 mg 400 mg PO DAILY #30 tabs 03/01/23 magnesium) tablet albuterol sulfate 90 mcg/actuation 1 puff inhalation QID PRN for 03/30/23 aerosol inhaler wheezing #17 grams Allergies Allergy/AdvReac Type Severity Reaction Status Date / Time hydromorphone [From DILAUDID] Allergy Intermediate hives, Verified 05/05/23 09:15 itching tramadol [From ULTRAM] Allergy Intermediate hives,itchi Verified 05/05/23 09:15 ng PMFSH Past Medical History Medical History Annual physical exam Anxiety, generalized Atrial arrhythmia Breast CA (~03/01/23) Cardiac LV ejection fraction of 40-49% Chronic GERD Chronic systolic (congestive) heart failure Colonoscopy refused COPD (chronic obstructive pulmonary disease) Excessive drinking of alcohol Flank pain, chronic History of breast cancer in female Hx of abdominal pain Hx of screening mammography Hypertension, essential Muscle spasm Neuropathy NICM (nonischemic cardiomyopathy) Osteoarthritis Pulmonary nodules Rheumatoid arthritis Vitamin B12 deficiency Vitamin D deficiency Surgical History H/O colonoscopy H/O right mastectomy History of section History of esophagogastroduodenoscopy (EGD) History of hysterectomy History of mastectomy History of removal of Port-a-Cath Family History Family History Father Non-Hodgkin lymphoma Mother CVD (cardiovascular disease) Brother Lung disease Sister No problems noted. Maternal Grandfather Colon cancer Maternal Grandmother CVD (cardiovascular disease) Paternal Grandfather Unknown family medical history Paternal Grandmother Unknown family medical history Brother No problems noted. Son No problems noted. Son No problems noted. Daughter No problems noted. 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 Patient is a 73-year-old female with history of cirrhosis, breast CA, COPD, HTN, GERD, nonischemic cardiomyopathy presenting to the emergency department from PCP office for shortness of breath and bilateral foot swelling for the past week. Had labs drawn, EKG, CXR. Patient is currently on lasix which she reports taking as prescribed, no recent changes. Denies chest pain, denies orthopnea. Also reports intermittent abdominal pain and nausea, has mild RUQ tenderness to palpation on exam, abdomen is soft and otherwise nontender. States 3 weeks ago was sick and unable to eat for 5 days. Denies diarrhea or constipation. Reports difficulty initiating urine stream recently. Denies fevers. Plan: EKG, labs, UA Medical Decision Making Lab Data 05/05/23 11:31 05/05/23 11:31 Labs: Lab Results 05/05/23 05/05/23 05/05/23 Range/Units 11:31 11:31 11:31 WBC 9.5 (4.8-10.8) X10*3/uL RBC 3.22 L (4.20-5.50) X10*6/uL Hgb 11.1 L (12.0-16.0) g/dl Hct 34.1 L (37.0-47.0) % MCV 105.9 H (80.0-98.0) fL MCH 34.5 H (27.0-33.0) pg MCHC 32.6 (31.0-35.0) g/dl RDW 14.0 (11.0-16.0) % Plt Count 178 (160-400) X10*3/uL MPV 11.5 (9.4-12.3) fL Immature Gran % (Auto) 0.4 (0.0-0.4) % Neut % (Auto) 67.7 (45-73) % Lymph % (Auto) 18.7 L (20-40) % [place] % (Auto) 10.8 (2-11) % Eos % (Auto) 1.9 (0-4) % Baso % (Auto) 0.5 (0-2) % Lymph # (Auto) 1.8 (1.2-4.9) X10*3/uL [place] # (Auto) 1.0 (0.1-1.2) X10*3/uL Eos # (Auto) 0.2 (0.0-0.4) X10*3/uL Baso # (Auto) 0.1 (0.0-0.2) X10*3/uL Abs Immat Gran (auto) 0.04 H (0.00-0.03) X10*3/uL Absolute Neuts (auto) 6.5 (2.0-8.3) x10*3/uL Absolute Nucleated RBC 0.000 (0.0-0.012) X10*3/uL Nucleated RBC % (auto) 0.0 (0.0-0.2) /100WBC PT 15.4 H (10.0-13.1) SEC INR 1.3 H (0.9-1.1) Sodium 138 (135-145) mmol/L Potassium 4.1 (3.3-5.1) mmol/L Chloride 107 (96-108) mmol/L Carbon Dioxide 21 L (22-29) mmol/L Anion Gap 14 (12-20) BUN 35 H (9-16) mg/dL Creatinine 1.94 H (0.5-1.4) mg/dL Estim Creat Clear Calc 32.0 Estimated GFR 25 Random Glucose 97 (60-115) mg/dL Calcium 9.8 (8.4-10.2) mg/dL Total Bilirubin 1.9 H (0.0-1.0) mg/dL AST 48 H (5-31) U/L ALT 21 (0-31) U/L Alkaline Phosphatase 115 (39-117) U/L Troponin I High Sens (<3.5-17.0) ng/L Total Protein 7.3 (6.5-8.0) g/dL Albumin 3.1 L (3.5-5.0) g/dL Lipase 38 (8-78) U/L Urine Color Urine Appearance Urine pH (5.0-9.0) Ur Specific [place] (1.005-1.025) Urine Protein (Neg-Trace) mg/dL Urine Glucose (UA) (Negative) mg/dL Urine Ketones (Negative) mg/dL Urine Blood (Negative) Urine Nitrite (Negative) Ur Leukocyte Esterase (Negative) Urine RBC (0-2) /HPF Urine WBC (0-5) /HPF Urine WBC Clumps Ur Squamous Epith Cells (0-2) /HPF Urine Bacteria (None Seen) Hyaline Casts (0-2) /LPF 05/05/23 05/05/23 Range/Units 11:31 11:31 WBC (4.8-10.8) X10*3/uL RBC (4.20-5.50) X10*6/uL Hgb (12.0-16.0) g/dl Hct (37.0-47.0) % MCV (80.0-98.0) fL MCH (27.0-33.0) pg MCHC (31.0-35.0) g/dl RDW (11.0-16.0) % Plt Count (160-400) X10*3/uL MPV (9.4-12.3) fL Immature Gran % (Auto) (0.0-0.4) % Neut % (Auto) (45-73) % Lymph % (Auto) (20-40) % [place] % (Auto) (2-11) % Eos % (Auto) (0-4) % Baso % (Auto) (0-2) % Lymph # (Auto) (1.2-4.9) X10*3/uL [place] # (Auto) (0.1-1.2) X10*3/uL Eos # (Auto) (0.0-0.4) X10*3/uL Baso # (Auto) (0.0-0.2) X10*3/uL Abs Immat Gran (auto) (0.00-0.03) X10*3/uL Absolute Neuts (auto) (2.0-8.3) x10*3/uL Absolute Nucleated RBC (0.0-0.012) X10*3/uL Nucleated RBC % (auto) (0.0-0.2) /100WBC PT (10.0-13.1) SEC INR (0.9-1.1) Sodium (135-145) mmol/L Potassium (3.3-5.1) mmol/L Chloride (96-108) mmol/L Carbon Dioxide (22-29) mmol/L Anion Gap (12-20) BUN (9-16) mg/dL Creatinine (0.5-1.4) mg/dL Estim Creat Clear Calc Estimated GFR Random Glucose (60-115) mg/dL Calcium (8.4-10.2) mg/dL Total Bilirubin (0.0-1.0) mg/dL AST (5-31) U/L ALT (0-31) U/L Alkaline Phosphatase (39-117) U/L Troponin I High Sens 5.2 (<3.5-17.0) ng/L Total Protein (6.5-8.0) g/dL Albumin (3.5-5.0) g/dL Lipase (8-78) U/L Urine Color Dark Yellow Urine Appearance Clear Urine pH 5.5 (5.0-9.0) Ur Specific [place] 1.010 (1.005-1.025) Urine Protein Negative (Neg-Trace) mg/dL Urine Glucose (UA) Negative (Negative) mg/dL Urine Ketones Negative (Negative) mg/dL Urine Blood Negative (Negative) Urine Nitrite Negative (Negative) Ur Leukocyte Esterase Large (3+) H (Negative) Urine RBC 0-2 (0-2) /HPF Urine WBC >50 H (0-5) /HPF Urine WBC Clumps Present Ur Squamous Epith Cells 3-5 (0-2) /HPF Urine Bacteria 4+ (None Seen) Hyaline Casts 6-10 (0-2) /LPF Discharge Plan Discharge Prescriptions: No Action omeprazole 20 mg capsule,delayed release(DR/EC) 20 mg PO DAILY Qty: 90 3RF fluoxetine 40 mg capsule 40 mg PO DAILY Qty: 90 3RF amlodipine 5 mg tablet 5 mg PO DAILY Qty: 90 3RF metoprolol succinate 25 mg tablet extended release 24 hr 25 mg PO DAILY Qty: 90 3RF celecoxib 200 mg capsule 200 mg PO DAILY Qty: 90 3RF cyclobenzaprine 5 mg tablet 10 mg PO BEDTIME PRN (Reason: for muscle spasm) Qty: 30 0RF furosemide 40 mg tablet 40 mg PO DAILY Qty: 90 3RF losartan 50 mg tablet 50 mg PO DAILY Qty: 90 3RF albuterol sulfate 90 mcg/actuation HFA aerosol inhaler 1 puff inhalation QID PRN (Reason: for wheezing) Qty: 17 4RF nitrofurantoin monohyd/m-cryst [Macrobid] 100 mg capsule 100 mg PO Q12H 7 Days Qty: 14 0RF Rx Instructions: must administer with a meal/food Trelegy Ellipta 200-62.5-25 mcg blister with device 1 inh inhalation DAILY 30 Days Qty: 60 12RF gabapentin 300 mg capsule 300 mg PO BEDTIME Qty: 90 1RF magnesium oxide 400 mg (241.3 mg magnesium) tablet 400 mg PO DAILY Qty: 30 1RF aspirin 81 mg tablet,delayed release (DR/EC) 81 mg PO DAILY cholecalciferol (vitamin D3) 50 mcg (2,000 unit) capsule 50 mcg PO DAILY diphenhydramine HCl [Benadryl] 25 mg capsule 25 mg PO BEDTIME vitamin B complex [B Complex-Vitamin B12] Tablet 1 tab PO DAILY ipratropium-albuterol 0.5 mg-3 mg(2.5 mg base)/3 mL solution for nebulization 3 ml inhalation BID 30 Days Qty: 180 11RF
[2023-05-05 11:15] VITALS: BP 108/51; PULSE 74; RESP 20; TEMP 36.6; O2SAT 96; BMI 33.8
--- NOTE | 2023-05-05 11:20 | ECG_ITS ---
Test Reason : SOB Blood Pressure : / mmHG Vent. Rate : 069 BPM Atrial Rate : 069 BPM P-R Int : 158 ms QRS Dur : 074 ms QT Int : 440 ms P-R-T Axes : 059 080 037 degrees QTc Int : 471 ms Sinus rhythm with Premature atrial complexes Low voltage QRS Cannot rule out Anterior infarct , age undetermined Abnormal ECG When compared with ECG of 15-NOV-2019 23:27, Premature atrial complexes are now Present Nonspecific T wave abnormality now evident in Inferior leads Referred By: Lyly Bucio Electronically Signed By:KARLY HOLMAN MD
[2023-05-05 11:39] LABS: MANUAL DIFF FLAG NO
[2023-05-05 11:43] LABS: Appearance Urine Clear; Color Urine Dark Yellow; Glucose Urine UA Negative (Negative); Leukocyte Esterase Urine Large (3+) (Negative); Nitrite Urine Negative (Negative); PH 5.5 (5.0-9.0); UMIC TRIGGER UACC YES; Urine Blood Negative (Negative); Urine Ketones Negative (Negative); Urine Protein Negative (Neg-Trace)
[2023-05-05 11:44] LABS: Basophils Absolute Auto 0.1 X10*3/uL (0.0-0.2); Basophils Percent Auto 0.5 % (0-2); Eosinophils Absolute Auto 0.2 X10*3/uL (0.0-0.4); Eosinophils Percent Auto 1.9 % (0-4); Hematocrit 34.1 % (37.0-47.0); Hemoglobin 11.1 g/dl (12.0-16.0); Imm Gran Abs Auto 0.04 X10*3/uL (0.00-0.03); Imm Gran Pct Auto 0.4 % (0.0-0.4); Lymphocytes Absolute Auto 1.8 X10*3/uL (1.2-4.9); Lymphocytes Percent Auto 18.7 % (20-40); Mean Corpuscular HGB Conc 32.6 g/dl (31.0-35.0); Mean Corpuscular Hemoglobin 34.5 pg (27.0-33.0); Mean Corpuscular Volume 105.9 fL (80.0-98.0); Mean Platelet Volume 11.5 fL (9.4-12.3); Monocytes Percent Auto 10.8 % (2-11); Neutrophils Absolute Auto 6.5 x10*3/uL (2.0-8.3); Neutrophils Percent Auto 67.7 % (45-73); Platelet Count 178 X10*3/uL (160-400); Red Blood Count 3.22 X10*6/uL (4.20-5.50); White Blood Count 9.5 X10*3/uL (4.8-10.8)
[2023-05-05 11:50] VITALS: BP 118/65; PULSE 97; RESP 18; TEMP 36.6; O2SAT 98
[2023-05-05 11:52] LABS: Bacteria Urine 4+ (None Seen); RBC Urine 0-2 /HPF (0-2); UACC Culture Trigger YES; WBC Clumps Urine Present; WBC Urine >50 /HPF (0-5)
[2023-05-05 11:56] LABS: Alanine Aminotransferase 21 U/L (0-31); Albumin Level 3.1 g/dL (3.5-5.0); Alkaline Phosphatase 115 U/L (39-117); Anion Gap 14 (12-20); Aspartate Amino Transferase 48 U/L (5-31); Bilirubin Total 1.9 mg/dL (0.0-1.0); Blood Urea Nitrogen 35 mg/dL (9-16); Calcium 9.8 mg/dL (8.4-10.2); Carbon Dioxide 21 mmol/L (22-29); Chloride 107 mmol/L (96-108); Estimated Glomerular Filt Rate 25; Glucose Random 97 mg/dL (60-115); INTERNATIONAL NORM RATIO 1.3 (0.9-1.1); Lipase 38 U/L (8-78); Potassium 4.1 mmol/L (3.3-5.1); Prothrombin Time 15.4 SEC (10.0-13.1); Sodium 138 mmol/L (135-145); Total Protein 7.3 g/dL (6.5-8.0)
[2023-05-05 12:00] LABS: Troponin-I High Sensitivity 5.2 ng/L (<3.5-17.0)
--- NOTE | 2023-05-05 13:03 | ED_ITS ---
HPI - General Adult General Chief complaint: General Medical Stated complaint: feet swelling Time Seen by Provider: 05/05/23 12:53 Source: patient Limitations: no limitations History of Present Illness HPI narrative: This is a jenny 73 years old of female presented to the emergency department complaining of lower extremity edema for about 2 weeks. She has history of liver cirrhosis, hyperglycemia, recovering alcohol abuse, history of COPD. She is also complaining of shortness of breath no fever no chills. Onset (ago): week(s) (2 weeks) Severity: moderate Pain Consistency: constant Relieving factors: none Exacerbating factors: none Associated symptoms: denies other symptoms Related Data Home Medications Medication Instructions Recorded Confirmed aspirin 81 mg tablet,delayed 81 mg PO DAILY 12/18/20 03/15/23 release cholecalciferol (vitamin D3) 50 50 mcg PO DAILY 12/18/20 03/15/23 mcg (2,000 unit) capsule diphenhydramine HCl 25 mg capsule 25 mg PO BEDTIME 01/05/21 03/15/23 (Benadryl) vitamin B complex (B 1 tab PO DAILY 07/27/21 03/15/23 Complex-Vitamin B12 tablet) Previous Rx's Medication Instructions Recorded ipratropium 0.5 mg-albuterol 3 mg 3 ml inhalation BID 30 days #180 mL 02/15/22 (2.5 mg base)/3 mL nebulization soln omeprazole 20 mg capsule,delayed 20 mg PO DAILY #90 caps 05/12/22 release fluoxetine 40 mg capsule 40 mg PO DAILY #90 caps 06/21/22 amlodipine 5 mg tablet 5 mg PO DAILY #90 tabs 06/29/22 metoprolol succinate 25 mg 25 mg PO DAILY #90 tabs 07/12/22 tablet,extended release 24 hr celecoxib 200 mg capsule 200 mg PO DAILY #90 caps 11/08/22 cyclobenzaprine 5 mg tablet 10 mg PO BEDTIME PRN for muscle 11/30/22 spasm #30 tabs furosemide 40 mg tablet 40 mg PO DAILY #90 tabs 12/03/22 losartan 50 mg tablet 50 mg PO DAILY #90 tabs 12/27/22 nitrofurantoin 100 mg PO Q12H 7 days #14 caps 02/06/23 monohydrate/macrocrystals 100 mg capsule (Macrobid) fluticasone fur. 200 mcg-umeclid 1 inh inhalation DAILY 30 days #60 03/01/23 62.5 mcg-vilant 25 mcg ea inhalat.powder (Trelegy Ellipta) gabapentin 300 mg capsule 300 mg PO BEDTIME #90 caps 03/01/23 magnesium oxide 400 mg (241.3 mg 400 mg PO DAILY #30 tabs 03/01/23 magnesium) tablet albuterol sulfate 90 mcg/actuation 1 puff inhalation QID PRN for 03/30/23 aerosol inhaler wheezing #17 grams Allergies Allergy/AdvReac Type Severity Reaction Status Date / Time hydromorphone [From DILAUDID] Allergy Intermediate hives, Verified 05/05/23 09:15 itching tramadol [From ULTRAM] Allergy Intermediate hives,itchi Verified 05/05/23 09:15 ng Review of Systems Constitutional: Constitutional: Reports no additional constitutional complaints Cardiovascular: Cardiovascular: Reports no additional cardiovascular complaints Musculoskeletal: Musculoskeletal: Reports other (Lower extremity edema 1+ edema) [facility] Past Medical History Medical History Annual physical exam Anxiety, generalized Atrial arrhythmia Breast CA (~03/01/23) Cardiac LV ejection fraction of 40-49% Chronic GERD Chronic systolic (congestive) heart failure Colonoscopy refused COPD (chronic obstructive pulmonary disease) Excessive drinking of alcohol Flank pain, chronic History of breast cancer in female Hx of abdominal pain Hx of screening mammography Hypertension, essential Muscle spasm Neuropathy NICM (nonischemic cardiomyopathy) Osteoarthritis Pulmonary nodules Rheumatoid arthritis Vitamin B12 deficiency Vitamin D deficiency Surgical History H/O colonoscopy H/O right mastectomy History of section History of esophagogastroduodenoscopy (EGD) History of hysterectomy History of mastectomy History of removal of Port-a-Cath Family History Family History Father Non-Hodgkin lymphoma Mother CVD (cardiovascular disease) Brother Lung disease Sister No problems noted. Maternal Grandfather Colon cancer Maternal Grandmother CVD (cardiovascular disease) Paternal Grandfather Unknown family medical history Paternal Grandmother Unknown family medical history Brother No problems noted. Son No problems noted. Son No problems noted. Daughter No problems noted. 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 needs: No Hearing needs: No Vision needs: Yes (wears glasses ) Physical Exam ED Vital Signs: Vital Signs - 24 hr 05/05/23 11:15 05/05/23 11:50 Temperature 97.9 F 97.8 F Pulse Rate 74 97 Respiratory Rate 20 18 Blood Pressure 108/51 L 118/65 Pulse Oximetry 96 98 Oxygen Delivery Method Room Air Room Air BMI result Body Mass Index 33.8 Const General: cooperative, comfortable, no acute distress, well developed, alert, awake and Physically active Nutritional Appearance: well nourished Orientation/consciousness: patient oriented x3 Limitations: no limitations HENMT Head: Yes normal to inspection and Yes No palpable skull fracture present General nose exam: Normal external nose present Mouth: Normal oral and palatal mucosa present Teeth and gingiva: dentition normal Throat: Yes posterior oropharynx normal Neck Neck: Yes normal visual inspection Chest Chest palpation & inspection: normal inspection of the chest Resp Effort & Inspection: normal respiratory effort Auscultation: rhonchi Cardio Jugular venous distension: no JVD Rate: regular rate Rhythm: regular rhythm GI Inspection: Yes normal to inspection Palpation (GI): Soft to palpation, not firm, nontender, no guarding and not rigid Neuro General: patient oriented x3 Cranial nerves: Yes CN's II-XII intact bilaterally Extrem Other: 1+ edema is present, she has excellent pulses in the lower extremity. Course Reevaluation(s) Reevaluation #1: remain stable US legs no DVT,CXR no edema will d/c pt on double dose of lasicx from 40 to 80 fror 4 DAys,low salt diet,elevation,consideration on d/c amlopidine I left tiger text message to Dr Langford Time: 15:19 Medical Decision Making Medical Decision Making MDM Narrative: Patient presented extremity edema will get labs, will get an ultrasound even if I do not think she has a DVT because is bilateral edema 15:20 on reexamination she looks well not toxic oxygenating well normal chest x- ray negative ultrasound for DVT I think patient can be discharged home a on i ncreasing Lasix and low-salt diet elevation of the legs consideration on discontinuing amlodipine (which is well known to increase legs edema) Differential Diagnosis Differential Diagnoses: The differential diagnosis associated with the p resentation includes Differential diagnoses edema secondary to cirrhosis,, heart failure, edema secondary to Norvasc, DVT Admission/Observation Consideration of admission/observation: Escalation of care including admission/observation considered Admission consider for IV diuretic however she is oxygenating well chest x-ray normal common no DVT with double the Lasix Lab Data MDM Lab Attestation statement: I reviewed the patient's lab results. 05/05/23 11:31 05/05/23 11:31 Labs: Lab Results 05/05/23 05/05/23 05/05/23 Range/Units 11:31 11:31 11:31 WBC 9.5 (4.8-10.8) X10*3/uL RBC 3.22 L (4.20-5.50) X10*6/uL Hgb 11.1 L (12.0-16.0) g/dl Hct 34.1 L (37.0-47.0) % MCV 105.9 H (80.0-98.0) fL MCH 34.5 H (27.0-33.0) pg MCHC 32.6 (31.0-35.0) g/dl RDW 14.0 (11.0-16.0) % Plt Count 178 (160-400) X10*3/uL MPV 11.5 (9.4-12.3) fL Immature Gran % (Auto) 0.4 (0.0-0.4) % Neut % (Auto) 67.7 (45-73) % Lymph % (Auto) 18.7 L (20-40) % [place] % (Auto) 10.8 (2-11) % Eos % (Auto) 1.9 (0-4) % Baso % (Auto) 0.5 (0-2) % Lymph # (Auto) 1.8 (1.2-4.9) X10*3/uL [place] # (Auto) 1.0 (0.1-1.2) X10*3/uL Eos # (Auto) 0.2 (0.0-0.4) X10*3/uL Baso # (Auto) 0.1 (0.0-0.2) X10*3/uL Abs Immat Gran (auto) 0.04 H (0.00-0.03) X10*3/uL Absolute Neuts (auto) 6.5 (2.0-8.3) x10*3/uL Absolute Nucleated RBC 0.000 (0.0-0.012) X10*3/uL Nucleated RBC % (auto) 0.0 (0.0-0.2) /100WBC PT 15.4 H (10.0-13.1) SEC INR 1.3 H (0.9-1.1) Sodium 138 (135-145) mmol/L Potassium 4.1 (3.3-5.1) mmol/L Chloride 107 (96-108) mmol/L Carbon Dioxide 21 L (22-29) mmol/L Anion Gap 14 (12-20) BUN 35 H (9-16) mg/dL Creatinine 1.94 H (0.5-1.4) mg/dL Estim Creat Clear Calc 32.0 Estimated GFR 25 Random Glucose 97 (60-115) mg/dL Calcium 9.8 (8.4-10.2) mg/dL Total Bilirubin 1.9 H (0.0-1.0) mg/dL AST 48 H (5-31) U/L ALT 21 (0-31) U/L Alkaline Phosphatase 115 (39-117) U/L Troponin I High Sens (<3.5-17.0) ng/L Total Protein 7.3 (6.5-8.0) g/dL Albumin 3.1 L (3.5-5.0) g/dL Lipase 38 (8-78) U/L Urine Color Urine Appearance Urine pH (5.0-9.0) Ur Specific [place] (1.005-1.025) Urine Protein (Neg-Trace) mg/dL Urine Glucose (UA) (Negative) mg/dL Urine Ketones (Negative) mg/dL Urine Blood (Negative) Urine Nitrite (Negative) Ur Leukocyte Esterase (Negative) Urine RBC (0-2) /HPF Urine WBC (0-5) /HPF Urine WBC Clumps Ur Squamous Epith Cells (0-2) /HPF Urine Bacteria (None Seen) Hyaline Casts (0-2) /LPF 05/05/23 05/05/23 Range/Units 11:31 11:31 WBC (4.8-10.8) X10*3/uL RBC (4.20-5.50) X10*6/uL Hgb (12.0-16.0) g/dl Hct (37.0-47.0) % MCV (80.0-98.0) fL MCH (27.0-33.0) pg MCHC (31.0-35.0) g/dl RDW (11.0-16.0) % Plt Count (160-400) X10*3/uL MPV (9.4-12.3) fL Immature Gran % (Auto) (0.0-0.4) % Neut % (Auto) (45-73) % Lymph % (Auto) (20-40) % [place] % (Auto) (2-11) % Eos % (Auto) (0-4) % Baso % (Auto) (0-2) % Lymph # (Auto) (1.2-4.9) X10*3/uL [place] # (Auto) (0.1-1.2) X10*3/uL Eos # (Auto) (0.0-0.4) X10*3/uL Baso # (Auto) (0.0-0.2) X10*3/uL Abs Immat Gran (auto) (0.00-0.03) X10*3/uL Absolute Neuts (auto) (2.0-8.3) x10*3/uL Absolute Nucleated RBC (0.0-0.012) X10*3/uL Nucleated RBC % (auto) (0.0-0.2) /100WBC PT (10.0-13.1) SEC INR (0.9-1.1) Sodium (135-145) mmol/L Potassium (3.3-5.1) mmol/L Chloride (96-108) mmol/L Carbon Dioxide (22-29) mmol/L Anion Gap (12-20) BUN (9-16) mg/dL Creatinine (0.5-1.4) mg/dL Estim Creat Clear Calc Estimated GFR Random Glucose (60-115) mg/dL Calcium (8.4-10.2) mg/dL Total Bilirubin (0.0-1.0) mg/dL AST (5-31) U/L ALT (0-31) U/L Alkaline Phosphatase (39-117) U/L Troponin I High Sens 5.2 (<3.5-17.0) ng/L Total Protein (6.5-8.0) g/dL Albumin (3.5-5.0) g/dL Lipase (8-78) U/L Urine Color Dark Yellow Urine Appearance Clear Urine pH 5.5 (5.0-9.0) Ur Specific [place] 1.010 (1.005-1.025) Urine Protein Negative (Neg-Trace) mg/dL Urine Glucose (UA) Negative (Negative) mg/dL Urine Ketones Negative (Negative) mg/dL Urine Blood Negative (Negative) Urine Nitrite Negative (Negative) Ur Leukocyte Esterase Large (3+) H (Negative) Urine RBC 0-2 (0-2) /HPF Urine WBC >50 H (0-5) /HPF Urine WBC Clumps Present Ur Squamous Epith Cells 3-5 (0-2) /HPF Urine Bacteria 4+ (None Seen) Hyaline Casts 6-10 (0-2) /LPF Independent Interpretation I performed an independent interpretation of an: EKG Interpretation: NSR 75 no ischemic changes Radiology Impression Discussion of test interpretation with radiology: I have reviewed the radiologist's reading. External Record Review External record reviewed: Inpatient record Discharge Plan Discharge Clinical Impression: Edema leg Patient Disposition: Home, Self-Care Instructions: Leg Edema (ED) Additional Instructions: Keep your leg elevated, low-salt diet, increase the Lasix to 80 mg a for 4 days. Follow-up with your primary care physician return if you are worse Also stop the amlopidine (norvasc ) for 2 days and see if make diffecrence your Blood Pressure is the low side anyway Prescriptions: No Action omeprazole 20 mg capsule,delayed release(DR/EC) 20 mg PO DAILY Qty: 90 3RF fluoxetine 40 mg capsule 40 mg PO DAILY Qty: 90 3RF amlodipine 5 mg tablet 5 mg PO DAILY Qty: 90 3RF metoprolol succinate 25 mg tablet extended release 24 hr 25 mg PO DAILY Qty: 90 3RF celecoxib 200 mg capsule 200 mg PO DAILY Qty: 90 3RF cyclobenzaprine 5 mg tablet 10 mg PO BEDTIME PRN (Reason: for muscle spasm) Qty: 30 0RF furosemide 40 mg tablet 40 mg PO DAILY Qty: 90 3RF losartan 50 mg tablet 50 mg PO DAILY Qty: 90 3RF albuterol sulfate 90 mcg/actuation HFA aerosol inhaler 1 puff inhalation QID PRN (Reason: for wheezing) Qty: 17 4RF nitrofurantoin monohyd/m-cryst [Macrobid] 100 mg capsule 100 mg PO Q12H 7 Days Qty: 14 0RF Rx Instructions: must administer with a meal/food Trelegy Ellipta 200-62.5-25 mcg blister with device 1 inh inhalation DAILY 30 Days Qty: 60 12RF gabapentin 300 mg capsule 300 mg PO BEDTIME Qty: 90 1RF magnesium oxide 400 mg (241.3 mg magnesium) tablet 400 mg PO DAILY Qty: 30 1RF aspirin 81 mg tablet,delayed release (DR/EC) 81 mg PO DAILY cholecalciferol (vitamin D3) 50 mcg (2,000 unit) capsule 50 mcg PO DAILY diphenhydramine HCl [Benadryl] 25 mg capsule 25 mg PO BEDTIME vitamin B complex [B Complex-Vitamin B12] Tablet 1 tab PO DAILY ipratropium-albuterol 0.5 mg-3 mg(2.5 mg base)/3 mL solution for nebulization 3 ml inhalation BID 30 Days Qty: 180 11RF Referrals: Adele Knight MD [Primary Care Provider] - 2 days Interventions: ED Discharge Assessment Last Done: 05/05/23 15:38 Discharge Date/Time: 05/05/23 15:39
--- NOTE | 2023-05-05 13:26 | PC.NURSE ---
pt a&ox3, respirations equal and unlabored. pt reporting swelling bilaterally on lower legs and feet for a few days. pt reporting pain on both feet. pitting edema noted. pt reports increased shortness of breath with minimal exertion. clear bilateral lung sounds.
--- NOTE | 2023-05-09 17:54 | ED_ITS ---
HPI - General Adult General Chief complaint: General Medical Stated complaint: feet swelling Time Seen by Provider: 05/05/23 12:53 Source: patient Limitations: no limitations History of Present Illness Relieving factors: none Exacerbating factors: none Associated symptoms: denies other symptoms Related Data Home Medications Medication Instructions Recorded Confirmed aspirin 81 mg tablet,delayed 81 mg PO DAILY 12/18/20 03/15/23 release cholecalciferol (vitamin D3) 50 50 mcg PO DAILY 12/18/20 03/15/23 mcg (2,000 unit) capsule diphenhydramine HCl 25 mg capsule 25 mg PO BEDTIME 01/05/21 03/15/23 (Benadryl) vitamin B complex (B 1 tab PO DAILY 07/27/21 03/15/23 Complex-Vitamin B12 tablet) Previous Rx's Medication Instructions Recorded ipratropium 0.5 mg-albuterol 3 mg 3 ml inhalation BID 30 days #180 mL 02/15/22 (2.5 mg base)/3 mL nebulization soln omeprazole 20 mg capsule,delayed 20 mg PO DAILY #90 caps 05/12/22 release fluoxetine 40 mg capsule 40 mg PO DAILY #90 caps 06/21/22 amlodipine 5 mg tablet 5 mg PO DAILY #90 tabs 06/29/22 metoprolol succinate 25 mg 25 mg PO DAILY #90 tabs 07/12/22 tablet,extended release 24 hr celecoxib 200 mg capsule 200 mg PO DAILY #90 caps 11/08/22 cyclobenzaprine 5 mg tablet 10 mg PO BEDTIME PRN for muscle 11/30/22 spasm #30 tabs furosemide 40 mg tablet 40 mg PO DAILY #90 tabs 12/03/22 losartan 50 mg tablet 50 mg PO DAILY #90 tabs 12/27/22 nitrofurantoin 100 mg PO Q12H 7 days #14 caps 02/06/23 monohydrate/macrocrystals 100 mg capsule (Macrobid) fluticasone fur. 200 mcg-umeclid 1 inh inhalation DAILY 30 days #60 03/01/23 62.5 mcg-vilant 25 mcg ea inhalat.powder (Trelegy Ellipta) gabapentin 300 mg capsule 300 mg PO BEDTIME #90 caps 03/01/23 albuterol sulfate 90 mcg/actuation 1 puff inhalation QID PRN for 03/30/23 aerosol inhaler wheezing #17 grams cefuroxime axetil 250 mg tablet 250 mg PO BID 7 days #14 tabs 05/09/23 magnesium oxide 400 mg (241.3 mg 400 mg PO DAILY #30 tabs 05/09/23 magnesium) tablet Allergies Allergy/AdvReac Type Severity Reaction Status Date / Time hydromorphone [From DILAUDID] Allergy Intermediate hives, Verified 05/05/23 09:15 itching tramadol [From ULTRAM] Allergy Intermediate hives,itchi Verified 05/05/23 09:15 ng PMFSH Past Medical History Medical History Annual physical exam Anxiety, generalized Atrial arrhythmia Breast CA (~03/01/23) Cardiac LV ejection fraction of 40-49% Chronic GERD Chronic systolic (congestive) heart failure Colonoscopy refused COPD (chronic obstructive pulmonary disease) Excessive drinking of alcohol Flank pain, chronic History of breast cancer in female Hx of abdominal pain Hx of screening mammography Hypertension, essential Muscle spasm Neuropathy NICM (nonischemic cardiomyopathy) Osteoarthritis Pulmonary nodules Rheumatoid arthritis Vitamin B12 deficiency Vitamin D deficiency Surgical History H/O colonoscopy H/O right mastectomy History of section History of esophagogastroduodenoscopy (EGD) History of hysterectomy History of mastectomy History of removal of Port-a-Cath Family History Family History Father Non-Hodgkin lymphoma Mother CVD (cardiovascular disease) Brother Lung disease Sister No problems noted. Maternal Grandfather Colon cancer Maternal Grandmother CVD (cardiovascular disease) Paternal Grandfather Unknown family medical history Paternal Grandmother Unknown family medical history Brother No problems noted. Son No problems noted. Son No problems noted. Daughter No problems noted. 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 + urine culture w/ ecoli. Time: 17:55 Medical Decision Making Lab Data 05/05/23 11:31 05/05/23 11:31 Labs: Lab Results 05/05/23 05/05/23 05/05/23 Range/Units 11:31 11:31 11:31 WBC 9.5 (4.8-10.8) X10*3/uL RBC 3.22 L (4.20-5.50) X10*6/uL Hgb 11.1 L (12.0-16.0) g/dl Hct 34.1 L (37.0-47.0) % MCV 105.9 H (80.0-98.0) fL MCH 34.5 H (27.0-33.0) pg MCHC 32.6 (31.0-35.0) g/dl RDW 14.0 (11.0-16.0) % Plt Count 178 (160-400) X10*3/uL MPV 11.5 (9.4-12.3) fL Immature Gran % (Auto) 0.4 (0.0-0.4) % Neut % (Auto) 67.7 (45-73) % Lymph % (Auto) 18.7 L (20-40) % [place] % (Auto) 10.8 (2-11) % Eos % (Auto) 1.9 (0-4) % Baso % (Auto) 0.5 (0-2) % Lymph # (Auto) 1.8 (1.2-4.9) X10*3/uL [place] # (Auto) 1.0 (0.1-1.2) X10*3/uL Eos # (Auto) 0.2 (0.0-0.4) X10*3/uL Baso # (Auto) 0.1 (0.0-0.2) X10*3/uL Abs Immat Gran (auto) 0.04 H (0.00-0.03) X10*3/uL Absolute Neuts (auto) 6.5 (2.0-8.3) x10*3/uL Absolute Nucleated RBC 0.000 (0.0-0.012) X10*3/uL Nucleated RBC % (auto) 0.0 (0.0-0.2) /100WBC PT 15.4 H (10.0-13.1) SEC INR 1.3 H (0.9-1.1) Sodium 138 (135-145) mmol/L Potassium 4.1 (3.3-5.1) mmol/L Chloride 107 (96-108) mmol/L Carbon Dioxide 21 L (22-29) mmol/L Anion Gap 14 (12-20) BUN 35 H (9-16) mg/dL Creatinine 1.94 H (0.5-1.4) mg/dL Estim Creat Clear Calc 32.0 Estimated GFR 25 Random Glucose 97 (60-115) mg/dL Calcium 9.8 (8.4-10.2) mg/dL Total Bilirubin 1.9 H (0.0-1.0) mg/dL AST 48 H (5-31) U/L ALT 21 (0-31) U/L Alkaline Phosphatase 115 (39-117) U/L Troponin I High Sens (<3.5-17.0) ng/L Total Protein 7.3 (6.5-8.0) g/dL Albumin 3.1 L (3.5-5.0) g/dL Lipase 38 (8-78) U/L Urine Color Urine Appearance Urine pH (5.0-9.0) Ur Specific [place] (1.005-1.025) Urine Protein (Neg-Trace) mg/dL Urine Glucose (UA) (Negative) mg/dL Urine Ketones (Negative) mg/dL Urine Blood (Negative) Urine Nitrite (Negative) Ur Leukocyte Esterase (Negative) Urine RBC (0-2) /HPF Urine WBC (0-5) /HPF Urine WBC Clumps Ur Squamous Epith Cells (0-2) /HPF Urine Bacteria (None Seen) Hyaline Casts (0-2) /LPF 05/05/23 05/05/23 Range/Units 11:31 11:31 WBC (4.8-10.8) X10*3/uL RBC (4.20-5.50) X10*6/uL Hgb (12.0-16.0) g/dl Hct (37.0-47.0) % MCV (80.0-98.0) fL MCH (27.0-33.0) pg MCHC (31.0-35.0) g/dl RDW (11.0-16.0) % Plt Count (160-400) X10*3/uL MPV (9.4-12.3) fL Immature Gran % (Auto) (0.0-0.4) % Neut % (Auto) (45-73) % Lymph % (Auto) (20-40) % [place] % (Auto) (2-11) % Eos % (Auto) (0-4) % Baso % (Auto) (0-2) % Lymph # (Auto) (1.2-4.9) X10*3/uL [place] # (Auto) (0.1-1.2) X10*3/uL Eos # (Auto) (0.0-0.4) X10*3/uL Baso # (Auto) (0.0-0.2) X10*3/uL Abs Immat Gran (auto) (0.00-0.03) X10*3/uL Absolute Neuts (auto) (2.0-8.3) x10*3/uL Absolute Nucleated RBC (0.0-0.012) X10*3/uL Nucleated RBC % (auto) (0.0-0.2) /100WBC PT (10.0-13.1) SEC INR (0.9-1.1) Sodium (135-145) mmol/L Potassium (3.3-5.1) mmol/L Chloride (96-108) mmol/L Carbon Dioxide (22-29) mmol/L Anion Gap (12-20) BUN (9-16) mg/dL Creatinine (0.5-1.4) mg/dL Estim Creat Clear Calc Estimated GFR Random Glucose (60-115) mg/dL Calcium (8.4-10.2) mg/dL Total Bilirubin (0.0-1.0) mg/dL AST (5-31) U/L ALT (0-31) U/L Alkaline Phosphatase (39-117) U/L Troponin I High Sens 5.2 (<3.5-17.0) ng/L Total Protein (6.5-8.0) g/dL Albumin (3.5-5.0) g/dL Lipase (8-78) U/L Urine Color Dark Yellow Urine Appearance Clear Urine pH 5.5 (5.0-9.0) Ur Specific [place] 1.010 (1.005-1.025) Urine Protein Negative (Neg-Trace) mg/dL Urine Glucose (UA) Negative (Negative) mg/dL Urine Ketones Negative (Negative) mg/dL Urine Blood Negative (Negative) Urine Nitrite Negative (Negative) Ur Leukocyte Esterase Large (3+) H (Negative) Urine RBC 0-2 (0-2) /HPF Urine WBC >50 H (0-5) /HPF Urine WBC Clumps Present Ur Squamous Epith Cells 3-5 (0-2) /HPF Urine Bacteria 4+ (None Seen) Hyaline Casts 6-10 (0-2) /LPF Discharge Plan Discharge Clinical Impression: Edema leg Patient Disposition: Home, Self-Care Instructions: Leg Edema (ED) Additional Instructions: Keep your leg elevated, low-salt diet, increase the Lasix to 80 mg a for 4 days. Follow-up with your primary care physician return if you are worse Also stop the amlopidine (norvasc ) for 2 days and see if make diffecrence your Blood Pressure is the low side anyway Prescriptions: New cefuroxime axetil 250 mg tablet 250 mg PO BID 7 Days Qty: 14 0RF No Action omeprazole 20 mg capsule,delayed release(DR/EC) 20 mg PO DAILY Qty: 90 3RF fluoxetine 40 mg capsule 40 mg PO DAILY Qty: 90 3RF amlodipine 5 mg tablet 5 mg PO DAILY Qty: 90 3RF metoprolol succinate 25 mg tablet extended release 24 hr 25 mg PO DAILY Qty: 90 3RF celecoxib 200 mg capsule 200 mg PO DAILY Qty: 90 3RF cyclobenzaprine 5 mg tablet 10 mg PO BEDTIME PRN (Reason: for muscle spasm) Qty: 30 0RF furosemide 40 mg tablet 40 mg PO DAILY Qty: 90 3RF losartan 50 mg tablet 50 mg PO DAILY Qty: 90 3RF albuterol sulfate 90 mcg/actuation HFA aerosol inhaler 1 puff inhalation QID PRN (Reason: for wheezing) Qty: 17 4RF magnesium oxide 400 mg (241.3 mg magnesium) tablet 400 mg PO DAILY Qty: 30 1RF nitrofurantoin monohyd/m-cryst [Macrobid] 100 mg capsule 100 mg PO Q12H 7 Days Qty: 14 0RF Rx Instructions: must administer with a meal/food Trelegy Ellipta 200-62.5-25 mcg blister with device 1 inh inhalation DAILY 30 Days Qty: 60 12RF gabapentin 300 mg capsule 300 mg PO BEDTIME Qty: 90 1RF aspirin 81 mg tablet,delayed release (DR/EC) 81 mg PO DAILY cholecalciferol (vitamin D3) 50 mcg (2,000 unit) capsule 50 mcg PO DAILY diphenhydramine HCl [Benadryl] 25 mg capsule 25 mg PO BEDTIME vitamin B complex [B Complex-Vitamin B12] Tablet 1 tab PO DAILY ipratropium-albuterol 0.5 mg-3 mg(2.5 mg base)/3 mL solution for nebulization 3 ml inhalation BID 30 Days Qty: 180 11RF Referrals: Adele Knight MD [Primary Care Provider] - 2 days Interventions: ED Discharge Assessment Last Done: 05/05/23 15:38 Discharge Date/Time: 05/05/23 15:39
== END 2023-05-05 15:39 | disposition home or self-care (01) ==
PROVIDERS: Registered Nurse Emergency; Emergency Provider Emergency Medicine; PCP Internal Medicine
DX: R60.0 Localized edema (principal); R06.02 Shortness of breath; R94.31 Abnormal electrocardiogram [ECG] [EKG]; Z79.899 Other long term (current) drug therapy
CPT/HCPCS: 36415; 80053; 81001; 83690; 84484; 85025; 85610; 87086; 87088; 87186; 93005; 93970; 99284

== ENCOUNTER → 2023-05-05 11:20 | Outpatient (BNV) | payer MEDICARE, SELFPAY | PROVIDERS: Emergency Provider Emergency Medicine; PCP Internal Medicine; Visit Provider Internal Medicine Cardiovascular Disease | DX: I49.1 Atrial premature depolarization (principal) | CPT/HCPCS: 93010 ==

== ENCOUNTER 2023-05-21 13:15 | Emergency (ER) | payer MEDICARE, SELFPAY ==
[2023-05-21 13:19] VITALS: BP 112/72; PULSE 67; O2SAT 97
[2023-05-21 13:23] VITALS: BP 115/57; PULSE 60; RESP 18; TEMP 36.6; O2SAT 96; BMI 36.1
[2023-05-21 13:48] LABS: Appearance Urine Clear; Color Urine Yellow; Glucose Urine UA Negative (Negative); Leukocyte Esterase Urine Small (1+) (Negative); Nitrite Urine Negative (Negative); UMIC TRIGGER UACC YES; Urine Blood Negative (Negative); Urine Ketones Negative (Negative); Urine Protein Negative (Neg-Trace)
--- NOTE | 2023-05-21 13:50 | ECG_ITS ---
Test Reason : Shortness of breath Blood Pressure : / mmHG Vent. Rate : 060 BPM Atrial Rate : 060 BPM P-R Int : 144 ms QRS Dur : 082 ms QT Int : 462 ms P-R-T Axes : 090 061 059 degrees QTc Int : 462 ms Sinus rhythm with occasional Premature ventricular complexes Low voltage QRS Cannot rule out Anterior infarct (cited on or before 05-MAY-2023) Abnormal ECG When compared with ECG of 05-MAY-2023 12:07, Premature ventricular complexes are now Present Premature atrial complexes are no longer Present Referred By: Laurie Whatley Electronically Signed By:KARLY HOLMAN MD
[2023-05-21 13:51] LABS: Bacteria Urine None Seen (None Seen); RBC Urine 0-2 /HPF (0-2); UACC Culture Trigger YES
[2023-05-21 14:17] LABS: Basophils Percent Auto 0.4 % (0-2); Eosinophils Absolute Auto 0.2 X10*3/uL (0.0-0.4); Eosinophils Percent Auto 2.7 % (0-4); Hematocrit 34.2 % (37.0-47.0); Hemoglobin 11.2 g/dl (12.0-16.0); Imm Gran Abs Auto 0.03 X10*3/uL (0.00-0.03); Imm Gran Pct Auto 0.4 % (0.0-0.4); Lymphocytes Absolute Auto 1.4 X10*3/uL (1.2-4.9); Lymphocytes Percent Auto 20.4 % (20-40); MANUAL DIFF FLAG SCAN; Mean Corpuscular HGB Conc 32.7 g/dl (31.0-35.0); Mean Corpuscular Hemoglobin 34.4 pg (27.0-33.0); Mean Corpuscular Volume 104.9 fL (80.0-98.0); Monocytes Absolute Auto 0.8 X10*3/uL (0.1-1.2); Monocytes Percent Auto 11.2 % (2-11); Neutrophils Absolute Auto 4.5 x10*3/uL (2.0-8.3); Neutrophils Percent Auto 64.9 % (45-73); PLT CLUMP 1; Red Blood Count 3.26 X10*6/uL (4.20-5.50); Red Cell Distribution Width 14.4 % (11.0-16.0); SCAN SMEAR FLAG 1
[2023-05-21 14:20] LABS: Venous Blood Gas Refer to POC result
[2023-05-21 14:22] LABS: VBG Base Excess -1.2 mmol/L; VBG HCO3 21 mmol/L (22-26); VBG pCO2 28 mmHg; VBG pH 7.48 (7.32-7.43); VBG pO2 53 mmHg
--- NOTE | 2023-05-21 14:27 | ED.ALLEREA ---
HPI - Allergic Reaction General Chief complaint: Allergic Reaction Stated complaint: ?ALL RXN,SWOLLEN TONGUE/ITCHY ALL OVER PER EMS Time Seen by Provider: 05/21/23 13:32 Source: patient and EMS Mode of arrival: EMS History of Present Illness HPI narrative: This is a 73-year-old female with history of alcohol use disorder, COPD, hypertension and presents via EMS stating that when she woke up she noted that her eyes were swollen, tongue was swollen and she had itching all over and reports that she had blood in her mouth, she then took 50 mg of Benadryl at approximately 10:00 o'clock in the morning and then arrives with almost complete resolution of symptoms. Patient states that she is recently had a UTI and completed a course of Ceftin. She denies any fever, chills and states that she has stopped drinking alcohol. Related Data Home Medications Medication Instructions Recorded Confirmed aspirin 81 mg tablet,delayed 81 mg PO DAILY 12/18/20 03/15/23 release cholecalciferol (vitamin D3) 50 50 mcg PO DAILY 12/18/20 03/15/23 mcg (2,000 unit) capsule diphenhydramine HCl 25 mg capsule 25 mg PO BEDTIME 01/05/21 03/15/23 (Benadryl) vitamin B complex (B 1 tab PO DAILY 07/27/21 03/15/23 Complex-Vitamin B12 tablet) Previous Rx's Medication Instructions Recorded ipratropium 0.5 mg-albuterol 3 mg 3 ml inhalation BID 30 days #180 mL 02/15/22 (2.5 mg base)/3 mL nebulization soln omeprazole 20 mg capsule,delayed 20 mg PO DAILY #90 caps 05/12/22 release fluoxetine 40 mg capsule 40 mg PO DAILY #90 caps 06/21/22 amlodipine 5 mg tablet 5 mg PO DAILY #90 tabs 06/29/22 metoprolol succinate 25 mg 25 mg PO DAILY #90 tabs 07/12/22 tablet,extended release 24 hr celecoxib 200 mg capsule 200 mg PO DAILY #90 caps 11/08/22 cyclobenzaprine 5 mg tablet 10 mg PO BEDTIME PRN for muscle 11/30/22 spasm #30 tabs furosemide 40 mg tablet 40 mg PO DAILY #90 tabs 12/03/22 losartan 50 mg tablet 50 mg PO DAILY #90 tabs 12/27/22 nitrofurantoin 100 mg PO Q12H 7 days #14 caps 02/06/23 monohydrate/macrocrystals 100 mg capsule (Macrobid) fluticasone fur. 200 mcg-umeclid 1 inh inhalation DAILY 30 days #60 03/01/23 62.5 mcg-vilant 25 mcg ea inhalat.powder (Trelegy Ellipta) gabapentin 300 mg capsule 300 mg PO BEDTIME #90 caps 03/01/23 albuterol sulfate 90 mcg/actuation 1 puff inhalation QID PRN for 03/30/23 aerosol inhaler wheezing #17 grams cefuroxime axetil 250 mg tablet 250 mg PO BID 7 days #14 tabs 05/09/23 magnesium oxide 400 mg (241.3 mg 400 mg PO DAILY #30 tabs 05/09/23 magnesium) tablet epinephrine 0.3 mg/0.3 mL 0.3 mg (0.3 mL) IM Q5M PRN 05/21/23 injection, auto-injector (EpiPen anaphylaxis #2 ea 2-Julian) Allergies Allergy/AdvReac Type Severity Reaction Status Date / Time hydromorphone [From DILAUDID] Allergy Intermediate hives, Verified 05/21/23 13:21 itching tramadol [From ULTRAM] Allergy Intermediate hives,itchi Verified 05/21/23 13:21 ng losartan Allergy Angioedema Verified 05/21/23 16:37 Review of Systems Review of Systems: Pertinent positives and negatives as stated in HPI [facility] Past Medical History Source: nursing notes reviewed Medical History Annual physical exam Anxiety, generalized Atrial arrhythmia Breast CA (~03/01/23) Cardiac LV ejection fraction of 40-49% Chronic GERD Chronic systolic (congestive) heart failure Colonoscopy refused COPD (chronic obstructive pulmonary disease) Excessive drinking of alcohol Flank pain, chronic History of breast cancer in female Hx of abdominal pain Hx of screening mammography Hypertension, essential Muscle spasm Neuropathy NICM (nonischemic cardiomyopathy) Osteoarthritis Pulmonary nodules Rheumatoid arthritis Vitamin B12 deficiency Vitamin D deficiency Surgical History H/O colonoscopy H/O right mastectomy History of section History of esophagogastroduodenoscopy (EGD) History of hysterectomy History of mastectomy History of removal of Port-a-Cath Family History Family History Father Non-Hodgkin lymphoma Mother CVD (cardiovascular disease) Brother Lung disease Sister No problems noted. Maternal Grandfather Colon cancer Maternal Grandmother CVD (cardiovascular disease) Paternal Grandfather Unknown family medical history Paternal Grandmother Unknown family medical history Brother No problems noted. Son No problems noted. Son No problems noted. Daughter No problems noted. 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 GENERAL: Well developed, well nourished, in no acute distress. HEAD: Normocephalic/atraumatic EYES: PERRLA, EOMI EARS: Ext canals without abnormality NOSE: Nares patent bilateral OROPHARYNX: no oral lesions noted, posterior pharynx clear, I do not appreciate any lip/tongue/facial swelling, mucosa does appear to be dry and may be secondary to use of Benadryl. NECK: Supple, no adenopathy LUNGS: Bibasilar rales, with tachypnea, no expiratory wheeze noted. SpO2<93> CARDIOVASCULAR: Regular rate and rhythm without noted murmurs, no JVD 2+ bilateral pitting edema ABDOMEN: Soft, non-tender, non-distended with bowel sounds. MUSCULOSKELETAL: No tenderness, deformities, or effusions noted on gross inspection. EXTREMITIES: No cyanosis, clubbing or edema. SKIN: Inspection of the skin reveals no rashe NEUROLOGIC: Alert and oriented x 4. Strength and sensation to light touch were grossly intact x 4. Medications Administered Discontinued Medications Generic Name Dose Route Start Last Admin Trade Name Arnaldoq PRN Reason Stop Dose Admin Albuterol/Ipratropium 3 ml 05/21/23 13:50 05/21/23 14:43 Albuterol/Iprat 2.5/0.5mg 3 Ml Ampul.Neb INHALE 05/21/23 13:51 3 ml ONCE ONE Administration Famotidine 20 mg 05/21/23 16:19 05/21/23 16:47 Famotidine/Pf 20 Mg/2 Ml Vial IVPUSH 05/21/23 16:20 20 mg ONCE ONE Administration Furosemide 60 mg 05/21/23 15:26 05/21/23 15:56 Furosemide 100 Mg/10 Ml Vial IVPUSH 05/21/23 15:27 60 mg ONCE ONE Administration Protocol Medical Decision Making Medical Decision Making MDM Narrative: 73-year-old female with history and clinical presentation, DDX: Allergic reaction to losartan (I reviewed her medication list and it appears that she was recently started on losartan on 05/17), angioedema, CHF, chronic lung disease. I reviewed all investigations and he hematologic indices are chronically stable with a macrocytic anemia, no leukocytosis or left shift, platelets a reported as not being performed although patient does not have a predominance of petechiae or purpura to suggest significant thrombocytopenia. VBG demonstrates pH-7.48 and pCO2 of 28 arguing against a exacerbation of her underlying chronic lung disease. Chemistry indices demonstrate chronically stable CKD, potassium and magnesium are within normal limits patient has experienced a worsening BNP value which is consistent with clinical findings of bibasilar rales and received 60 mg of Lasix IV. Patient continues to be adamant that she has not consumed any alcohol although she does have a non-anion gap acidosis that I expect is related to her CKD. My interpretation is that patient has experienced angioedema related to her medication losartan, this was discussed with her at bedside and she was instructed to no longer take this medication, in addition she has a mild CHF exacerbation for which she receives 60 mg of Lasix, she is not hypoxic who will be discharged home with instructions follow-up with her leasing associate on Tuesday morning to discuss the need for additional diuretics and replacement for the losartan. In addition, discussed caution with salty foods to help prevent fluid retention. Differential Diagnosis Differential Diagnoses: The differential diagnosis associated with the presentation includes Please see the discussion above Admission/Observation Consideration of admission/observation: Escalation of care including admission/observation considered Please see the discussion above Lab Data MDM Lab Attestation statement: I reviewed the patient's lab results. Please see discussion above 05/21/23 14:07 05/21/23 14:07 Labs: Lab Results 05/21/23 05/21/23 05/21/23 Range/Units 13:34 14:07 14:07 WBC 7.0 (4.8-10.8) X10*3/uL RBC 3.26 L (4.20-5.50) X10*6/uL Hgb 11.2 L (12.0-16.0) g/dl Hct 34.2 L (37.0-47.0) % MCV 104.9 H (80.0-98.0) fL MCH 34.4 H (27.0-33.0) pg MCHC 32.7 (31.0-35.0) g/dl RDW 14.4 (11.0-16.0) % Plt Count TNP MPV Not Reportable Immature Gran % (Auto) 0.4 (0.0-0.4) % Neut % (Auto) 64.9 (45-73) % Lymph % (Auto) 20.4 (20-40) % [place] % (Auto) 11.2 H (2-11) % Eos % (Auto) 2.7 (0-4) % Baso % (Auto) 0.4 (0-2) % Lymph # (Auto) 1.4 (1.2-4.9) X10*3/uL [place] # (Auto) 0.8 (0.1-1.2) X10*3/uL Eos # (Auto) 0.2 (0.0-0.4) X10*3/uL Baso # (Auto) 0.0 (0.0-0.2) X10*3/uL Abs Immat Gran (auto) 0.03 (0.00-0.03) X10*3/uL Absolute Neuts (auto) 4.5 (2.0-8.3) x10*3/uL Absolute Nucleated RBC 0.000 (0.0-0.012) X10*3/uL Nucleated RBC % (auto) 0.0 (0.0-0.2) /100WBC Smear Tech's Comments VERIFIED VBG pH (7.32-7.43) VBG pCO2 mmHg VBG pO2 mmHg VBG HCO3 (22-26) mmol/L VBG O2 Saturation % VBG Base Excess mmol/L Sodium 137 (135-145) mmol/L Potassium 4.3 (3.3-5.1) mmol/L Chloride 110 H (96-108) mmol/L Carbon Dioxide 15 L (22-29) mmol/L Anion Gap 16 (12-20) BUN 43 H (9-16) mg/dL Creatinine 2.09 H (0.5-1.4) mg/dL Estim Creat Clear Calc 30.7 Estimated GFR 23 Random Glucose 95 (60-115) mg/dL Calcium 9.4 (8.4-10.2) mg/dL Magnesium 2.0 (1.6-2.6) mg/dL Total Bilirubin 1.9 H (0.0-1.0) mg/dL AST 56 H (5-31) U/L ALT 22 (0-31) U/L Alkaline Phosphatase 99 (39-117) U/L B-Natriuretic Peptide (<100) pg/mL Total Protein 7.3 (6.5-8.0) g/dL Albumin 2.9 L (3.5-5.0) g/dL Urine Color Yellow Urine Appearance Clear Urine pH 5.0 (5.0-9.0) Ur Specific [place] 1.010 (1.005-1.025) Urine Protein Negative (Neg-Trace) mg/dL Urine Glucose (UA) Negative (Negative) mg/dL Urine Ketones Negative (Negative) mg/dL Urine Blood Negative (Negative) Urine Nitrite Negative (Negative) Ur Leukocyte Esterase Small (1+) H (Negative) Urine RBC 0-2 (0-2) /HPF Urine WBC 6-10 H (0-5) /HPF Ur Squamous Epith Cells 3-5 (0-2) /HPF Urine Bacteria None Seen (None Seen) Hyaline Casts 3-5 (0-2) /LPF 07/29/23 07/29/23 Range/Units 14:07 14:13 WBC (4.8-10.8) X10*3/uL RBC (4.20-5.50) X10*6/uL Hgb (12.0-16.0) g/dl Hct (37.0-47.0) % MCV (80.0-98.0) fL MCH (27.0-33.0) pg MCHC (31.0-35.0) g/dl RDW (11.0-16.0) % Plt Count MPV Immature Gran % (Auto) (0.0-0.4) % Neut % (Auto) (45-73) % Lymph % (Auto) (20-40) % [place] % (Auto) (2-11) % Eos % (Auto) (0-4) % Baso % (Auto) (0-2) % Lymph # (Auto) (1.2-4.9) X10*3/uL [place] # (Auto) (0.1-1.2) X10*3/uL Eos # (Auto) (0.0-0.4) X10*3/uL Baso # (Auto) (0.0-0.2) X10*3/uL Abs Immat Gran (auto) (0.00-0.03) X10*3/uL Absolute Neuts (auto) (2.0-8.3) x10*3/uL Absolute Nucleated RBC (0.0-0.012) X10*3/uL Nucleated RBC % (auto) (0.0-0.2) /100WBC Smear Tech's Comments VBG pH 7.48 H (7.32-7.43) VBG pCO2 28 mmHg VBG pO2 53 mmHg VBG HCO3 21 L (22-26) mmol/L VBG O2 Saturation 88.0 % VBG Base Excess -1.2 mmol/L Sodium (135-145) mmol/L Potassium (3.3-5.1) mmol/L Chloride (96-108) mmol/L Carbon Dioxide (22-29) mmol/L Anion Gap (12-20) BUN (9-16) mg/dL Creatinine (0.5-1.4) mg/dL Estim Creat Clear Calc Estimated GFR Random Glucose (60-115) mg/dL Calcium (8.4-10.2) mg/dL Magnesium (1.6-2.6) mg/dL Total Bilirubin (0.0-1.0) mg/dL AST (5-31) U/L ALT (0-31) U/L Alkaline Phosphatase (39-117) U/L B-Natriuretic Peptide 396 H (<100) pg/mL Total Protein (6.5-8.0) g/dL Albumin (3.5-5.0) g/dL Urine Color Urine Appearance Urine pH (5.0-9.0) Ur Specific [place] (1.005-1.025) Urine Protein (Neg-Trace) mg/dL Urine Glucose (UA) (Negative) mg/dL Urine Ketones (Negative) mg/dL Urine Blood (Negative) Urine Nitrite (Negative) Ur Leukocyte Esterase (Negative) Urine RBC (0-2) /HPF Urine WBC (0-5) /HPF Ur Squamous Epith Cells (0-2) /HPF Urine Bacteria (None Seen) Hyaline Casts (0-2) /LPF Independent Interpretation I performed an independent interpretation of an: EKG Interpretation: Sinus rhythm with occasional PVCs, HR-60, no STEMI, SC/QRS/QTC is within normal limits. External Record Review External record reviewed: Outpatient record and Prior outpatient labs Chronic Conditions Patient?s care impacted by: Hypertension and Other Liver cirrhosis Critical Care Time Critical Care Time Critical Care Time: Yes Total Critical Care Time: 30 Attestation: I personally attest to this time spent taking care of the patient. Discharge Plan Discharge Clinical Impression: Angioedema, Allergy to angiotensin receptor blockers (ARB), CHF (congestive heart failure) Patient Disposition: Home, Self-Care Instructions: Heart Failure (ED), Angioedema (ED), Low-Sodium Diet (ED) Additional Instructions: 1. Resume all home medications except losartan, you should no longer take this medication as it seems you may have had an allergic reaction to the medication. 2. Please follow-up with your primary care provider/leasing associate on Tuesday morning. You will need to discuss alternative medication to the losartan. Return to the ER for any worsening symptoms. Prescriptions: New epinephrine [EpiPen 2-Julian] 0.3 mg/0.3 mL auto-injector 0.3 mg IM Q5M PRN (Reason: anaphylaxis) Qty: 2 0RF No Action omeprazole 20 mg capsule,delayed release(DR/EC) 20 mg PO DAILY Qty: 90 3RF fluoxetine 40 mg capsule 40 mg PO DAILY Qty: 90 3RF amlodipine 5 mg tablet 5 mg PO DAILY Qty: 90 3RF metoprolol succinate 25 mg tablet extended release 24 hr 25 mg PO DAILY Qty: 90 3RF celecoxib 200 mg capsule 200 mg PO DAILY Qty: 90 3RF cyclobenzaprine 5 mg tablet 10 mg PO BEDTIME PRN (Reason: for muscle spasm) Qty: 30 0RF furosemide 40 mg tablet 40 mg PO DAILY Qty: 90 3RF losartan 50 mg tablet 50 mg PO DAILY Qty: 90 3RF albuterol sulfate 90 mcg/actuation HFA aerosol inhaler 1 puff inhalation QID PRN (Reason: for wheezing) Qty: 17 4RF magnesium oxide 400 mg (241.3 mg magnesium) tablet 400 mg PO DAILY Qty: 30 1RF nitrofurantoin monohyd/m-cryst [Macrobid] 100 mg capsule 100 mg PO Q12H 7 Days Qty: 14 0RF Rx Instructions: must administer with a meal/food cefuroxime axetil 250 mg tablet 250 mg PO BID 7 Days Qty: 14 0RF Trelegy Ellipta 200-62.5-25 mcg blister with device 1 inh inhalation DAILY 30 Days Qty: 60 12RF gabapentin 300 mg capsule 300 mg PO BEDTIME Qty: 90 1RF aspirin 81 mg tablet,delayed release (DR/EC) 81 mg PO DAILY cholecalciferol (vitamin D3) 50 mcg (2,000 unit) capsule 50 mcg PO DAILY diphenhydramine HCl [Benadryl] 25 mg capsule 25 mg PO BEDTIME vitamin B complex [B Complex-Vitamin B12] Tablet 1 tab PO DAILY ipratropium-albuterol 0.5 mg-3 mg(2.5 mg base)/3 mL solution for nebulization 3 ml inhalation BID 30 Days Qty: 180 11RF Referrals: Adele Knight MD [Primary Care Provider] - Francisco Langford MD [Physician] -
[2023-05-21 14:43] LABS: SLIDE REVIEW VERIFIED
[2023-05-21] MEDS: Albuterol/Iprat 2.5/0.5MG 3 ML AMPUL.NEB INHALE (14:43)
[2023-05-21 14:44] VITALS: PULSE 66; RESP 16; O2SAT 96
[2023-05-21 14:45] LABS: Alanine Aminotransferase 22 U/L (0-31); Albumin Level 2.9 g/dL (3.5-5.0); Alkaline Phosphatase 99 U/L (39-117); Anion Gap 16 (12-20); Aspartate Amino Transferase 56 U/L (5-31); Bilirubin Total 1.9 mg/dL (0.0-1.0); Blood Urea Nitrogen 43 mg/dL (9-16); Calcium 9.4 mg/dL (8.4-10.2); Carbon Dioxide 15 mmol/L (22-29); Chloride 110 mmol/L (96-108); Creatinine Clr Calc Pharmacy 30.7; Estimated Glomerular Filt Rate 23; Glucose Random 95 mg/dL (60-115); Potassium 4.3 mmol/L (3.3-5.1); Sodium 137 mmol/L (135-145); Total Protein 7.3 g/dL (6.5-8.0)
[2023-05-21 14:51] LABS: B Type Natriuretic Peptide 396 pg/mL (<100)
[2023-05-21] MEDS: Furosemide 100 MG/10 ML VIAL 60 MG IVPUSH (15:56)
[2023-05-21 16:00] VITALS: BP 106/54; PULSE 72; TEMP 36.3; O2SAT 93
--- NOTE | 2023-05-21 16:01 | PC.NURSE ---
BP 106/54, MD aware. Lasix given per MAR
[2023-05-21] MEDS: Famotidine/PF 20 MG/2 ML VIAL IVPUSH (16:47)
[2023-05-21 16:50] VITALS: BP 108/52; PULSE 76; RESP 20
== END 2023-05-21 18:27 | disposition home or self-care (01) ==
PROVIDERS: Emergency Provider Student in an Organized Health Care Education/Training Program; PCP Internal Medicine
DX: T78.3XXA Angioneurotic edema, initial encounter (principal); T44.5X5A Adverse effect of predominantly beta-adrenoreceptor agonists, initial encounter; Y92.9 Unspecified place or not applicable; I13.0 Hypertensive heart and chronic kidney disease with heart failure and stage 1 through stage 4 chronic kidney disease, or unspecified chronic kidney disease; N18.9 Chronic kidney disease, unspecified; I50.9 Heart failure, unspecified; N39.0 Urinary tract infection, site not specified; R60.0 Localized edema; J44.9 Chronic obstructive pulmonary disease, unspecified; Z79.82 Long term (current) use of aspirin; Z79.899 Other long term (current) drug therapy; Z87.891 Personal history of nicotine dependence
CPT/HCPCS: 36415; 80053; 81001; 82803; 83735; 83880; 85025; 87086; 93005; 94640; 96374; 96375; 99284; 99285; J1940

== ENCOUNTER → 2023-05-21 13:50 | Outpatient (BNV) | payer MEDICARE, SELFPAY | PROVIDERS: Emergency Provider Student in an Organized Health Care Education/Training Program; PCP Internal Medicine; Visit Provider Internal Medicine Cardiovascular Disease | DX: I49.3 Ventricular premature depolarization (principal); R94.31 Abnormal electrocardiogram [ECG] [EKG] | CPT/HCPCS: 93010 ==

== ENCOUNTER 2023-05-24 07:34 | Outpatient (REF) | payer MEDICARE, SELFPAY ==
[2023-05-24 11:24] LABS: MANUAL DIFF FLAG NO
[2023-05-24 11:35] LABS: Basophils Percent Auto 0.5 % (0-2); Eosinophils Absolute Auto 0.3 X10*3/uL (0.0-0.4); Eosinophils Percent Auto 3.3 % (0-4); Hemoglobin 10.9 g/dl (12.0-16.0); Imm Gran Abs Auto 0.03 X10*3/uL (0.00-0.03); Imm Gran Pct Auto 0.4 % (0.0-0.4); Lymphocytes Absolute Auto 1.9 X10*3/uL (1.2-4.9); Lymphocytes Percent Auto 24.5 % (20-40); Mean Corpuscular HGB Conc 32.1 g/dl (31.0-35.0); Mean Corpuscular Hemoglobin 33.6 pg (27.0-33.0); Mean Corpuscular Volume 104.9 fL (80.0-98.0); Mean Platelet Volume 11.5 fL (9.4-12.3); Monocytes Absolute Auto 0.7 X10*3/uL (0.1-1.2); Monocytes Percent Auto 9.5 % (2-11); Neutrophils Absolute Auto 4.7 x10*3/uL (2.0-8.3); Neutrophils Percent Auto 61.8 % (45-73); Platelet Count 167 X10*3/uL (160-400); Red Blood Count 3.24 X10*6/uL (4.20-5.50); Red Cell Distribution Width 14.6 % (11.0-16.0); White Blood Count 7.6 X10*3/uL (4.8-10.8)
[2023-05-24 11:52] LABS: Estimated Average Glucose 88 mg/dL; Hemoglobin A1c % 4.7 %
[2023-05-24 12:12] LABS: Alanine Aminotransferase 23 U/L (0-31); Alkaline Phosphatase 102 U/L (39-117); Anion Gap 15 (12-20); Aspartate Amino Transferase 46 U/L (5-31); Blood Urea Nitrogen 43 mg/dL (9-16); Calcium 9.5 mg/dL (8.4-10.2); Carbon Dioxide 20 mmol/L (22-29); Chloride 109 mmol/L (96-108); Estimated Glomerular Filt Rate 23; Glucose Fasting 90 mg/dL (60-99); Potassium 4.3 mmol/L (3.3-5.1); Sodium 140 mmol/L (135-145); Total Protein 7.2 g/dL (6.5-8.0)
[2023-05-26 15:24] LABS: Alpha Fetoprotein 5.6 ng/mL
== END 2023-05-24 07:35 | disposition home or self-care (01) ==
LOC: HO.HMGCLDS 07:34
PROVIDERS: PCP Internal Medicine; Visit Provider Internal Medicine
DX: R73.9 Hyperglycemia, unspecified (principal); I10 Essential (primary) hypertension; K74.60 Unspecified cirrhosis of liver
CPT/HCPCS: 36415; 80053; 82105; 83036; 85025

== ENCOUNTER 2023-05-25 07:25 | Outpatient (AMB) | payer MEDICARE, SELFPAY ==
--- NOTE | 2023-05-25 07:30 | MHC.PC.OV ---
Vital Signs 05/25/23 07:33 Height 5 ft 7 in Weight 222 lb 2 oz BMI 34.8 BP 130/82 Blood Pressure Location Lt brachial Pulse 72 Pulse Source Pulse Oximeter Pulse Oximetry (%) 98 Oxygen Delivery Method Room Air Intake Visit Reasons: ER followup, edema/med allergy Allergies hydromorphone [From DILAUDID] Allergy (Intermediate, Verified 05/25/23 07:33) hives, itching tramadol [From ULTRAM] Allergy (Intermediate, Verified 05/25/23 07:33) hives,itching losartan Allergy (Verified 05/25/23 07:33) Angioedema Medication List - Last Reconciled 05/25/23 by Adele Knight MD albuterol sulfate 90 mcg/actuation 1 puff inhalation QID PRN amlodipine 5 mg PO DAILY aspirin 81 mg PO DAILY cefuroxime axetil 250 mg PO BID 7 days celecoxib 200 mg PO DAILY cholecalciferol (vitamin D3) 50 mcg PO DAILY cyclobenzaprine 10 mg (2 x 5 mg) PO BEDTIME PRN diphenhydramine HCl (Benadryl) 25 mg PO BEDTIME epinephrine (EpiPen 2-Julian) 0.3 mg (0.3 mL) IM Q5M PRN fluoxetine 40 mg PO DAILY vrokkisywen-tghcxqijt-meqozesz 200-62.5-25 mcg (Trelegy Ellipta) 1 inh inhalation DAILY 30 days furosemide 40 mg PO DAILY gabapentin 300 mg PO BEDTIME ipratropium-albuterol 0.5 mg-3 mg(2.5 mg base)/3 mL 3 mL inhalation BID 30 days losartan 50 mg PO DAILY magnesium oxide 400 mg PO DAILY metoprolol succinate ER 25 mg PO DAILY nitrofurantoin monohyd/m-cryst 100 mg (Macrobid) 100 mg PO Q12H 7 days omeprazole 20 mg PO DAILY vitamin B complex (B Complex-Vitamin B12 tablet) 1 tab PO DAILY Tobacco use date assessed: 03/01/23 HPI ER followup, edema/med allergy HPI Details Patient presents for the follow-up of ER visits. Patient developed acute lower extremity edema 3 weeks ago and went to the ER. Patient had negative ultrasound for DVT. Her furosemide was increased to 40 mg twice a day for 4 days. Patient was also treated with cefuroxime for presumed UTI. A week ago patient developed acute facial swelling and went to the ER 2nd time. losartan was discontinued questioning angioedema from the medication. Facial swelling improved since then. Patient continues to have extensive lower extremity edema. She complains of pain in her legs and knees. She has been taking Celebrex and gabapentin 300 q.h.s.. Patient denies shortness of breath cough or wheezing. She stopped drinking alcohol 2 months ago but has been heavy alcohol user for many years prior to it. COPD is stable on Trelegy. [facility] Medical History Annual physical exam Anxiety, generalized Atrial arrhythmia Breast CA (~03/01/23) Cardiac LV ejection fraction of 40-49% Chronic GERD Chronic systolic (congestive) heart failure Colonoscopy refused COPD (chronic obstructive pulmonary disease) Excessive drinking of alcohol Flank pain, chronic History of breast cancer in female Hx of abdominal pain Hx of screening mammography Hypertension, essential Muscle spasm Neuropathy NICM (nonischemic cardiomyopathy) Osteoarthritis Pulmonary nodules Rheumatoid arthritis Vitamin B12 deficiency Vitamin D deficiency Surgical History H/O colonoscopy H/O right mastectomy History of section History of esophagogastroduodenoscopy (EGD) History of hysterectomy History of mastectomy History of removal of Port-a-Cath Family History Father Non-Hodgkin lymphoma Mother CVD (cardiovascular disease) Brother Lung disease Sister No problems noted. Maternal Grandfather Colon cancer Maternal Grandmother CVD (cardiovascular disease) Paternal Grandfather Unknown family medical history Paternal Grandmother Unknown family medical history Brother No problems noted. Son No problems noted. Son No problems noted. Daughter No problems noted. 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 Mohit Israel, Krystal Kelsey, Khanh Davis and colleagues, with an educational apple from [employer]. Review of Systems Const All systems reviewed & are unremarkable except as noted in HPI and below Reports no additional complaints Eyes Reports no additional complaints ENT Reports no additional complaints Card Reports no additional complaints Resp Reports no additional complaints GI Reports no additional complaints Reports no additional complaints Physical exam (Primary Care) Vital Signs: Last Vital Signs Pulse 72 05/25/23 07:33 BP 130/82 05/25/23 07:33 Pulse Ox 98 05/25/23 07:33 Oxygen Delivery Method Room Air 05/25/23 07:33 BMI result Body Mass Index 34.8 Tobacco/Smoking Status: Tobacco use Status Tobacco use date assessed 03/01/23 05/25/23 07:32 Patient Tobacco Use Status Former Tobacco user 05/25/23 07:32 Tobacco use type 05/23/23 10:14 e-Cigarette/Vaping Use Never Used 05/25/23 07:32 Thrive Assessment: Date of Thrive Assessment Date Thrive assessed 02/23/22 05/25/23 07:32 Const General: no acute distress HENMT Head: Yes normal to inspection Face and sinus: Yes normal facial exam Eyes General: appearance normal, both eyes and all related structures Neck Neck: Yes supple Resp Effort & Inspection: normal respiratory effort Auscultation: clear to auscultation bilaterally Cardio Rhythm: regular rhythm Heart sounds: S1 normal heart sound present and S2 normal heart sound present GI Inspection: Yes normal to inspection and Yes obesity Palpation (GI): Soft to palpation Auscultation: normal bowel sounds Extrem Other: 4+ pitting edema bilaterally Assessment and Plan Assessment & Plan (1) SANDRA (acute kidney injury): Code(s): N17.9 - Acute kidney failure, unspecified Plan: For acute kidney injury with the last month renal ultrasound will be obtained ,urinalysis and culture will be checked. patient will be referred to director acute. She was advised to stop taking Celebrex or any NSAID to prevent further kidney injury. Follow-up in 1 week (2) Hypomagnesemia: Code(s): E83.42 - Hypomagnesemia (3) COPD (chronic obstructive pulmonary disease): Comment: f/u [facility] pulmonology Code(s): J44.9 - Chronic obstructive pulmonary disease, unspecified Qualifiers: COPD type: COPD with acute lower respiratory infection Qualified Code(s): J44.0 - Chronic obstructive pulmonary disease with (acute) lower respiratory infection Plan: Continue Trelegy (4) Edema: Code(s): R60.9 - Edema, unspecified Plan: Increase furosemide to 40 mg twice a day, patient was advised to elevate lower extremities basic metabolic panel will be checked in 3 days (5) Neuropathy: Code(s): G62.9 - Polyneuropathy, unspecified Plan: Chronic pain patient was advised to stop taking Celebrex because of acute kidney injury and increase gabapentin to 300 mg twice a day. (6) Hypertension, essential: Code(s): I10 - Essential (primary) hypertension Plan: Continue amlodipine and metoprolol Orders: Orders UA w Microscopic Today E83.42 - Hypomagnesemia, J44.9 - Chronic obstructive pulmonary disease, unspecified, N17.9 - Acute kidney failure, unspecified Urine Culture Today E83.42 - Hypomagnesemia, J44.9 - Chronic obstructive pulmonary disease, unspecified, N17.9 - Acute kidney failure, unspecified US renal BI Today E83.42 - Hypomagnesemia, J44.9 - Chronic obstructive pulmonary disease, unspecified, N17.9 - Acute kidney failure, unspecified Basic Metabolic Panel 2 Days E83.42 - Hypomagnesemia, J44.9 - Chronic obstructive pulmonary disease, unspecified, N17.9 - Acute kidney failure, unspecified Referrals Nephrology Referral N17.9 - Acute kidney failure, unspecified Medications: Changed From furosemide 40 mg PO DAILY 90 tabs 3RF To furosemide 40 mg PO BID 90 tabs 3RF From gabapentin 300 mg PO BEDTIME 90 caps 1RF To gabapentin 300 mg PO BID 180 caps 1RF Discontinued nitrofurantoin monohyd/m-cryst 100 mg (Macrobid) must administer with a meal/food Discontinued Reason: Doctor's Order 100 mg PO Q12H 7 days 14 caps 0RF cefuroxime axetil Discontinued Reason: Change Referral Type 250 mg PO BID 7 days 14 tabs 0RF losartan Discontinued Reason: Doctor's Order 50 mg PO DAILY 90 tabs 3RF Coding Level of Care Code Est Pt Level 4 (25492) Diagnoses SANDRA (acute kidney injury) N17.9 Hypomagnesemia E83.42 COPD (chronic obstructive pulmonary disease) J44.0 COPD type: COPD with acute lower respiratory infection Edema R60.9 Neuropathy G62.9 Hypertension, essential I10
[2023-05-25 07:33] VITALS: BP 130/82; PULSE 72; O2SAT 98; BMI 34.8
== END 2023-05-25 10:22 | disposition home or self-care (01) ==
PROVIDERS: PCP Internal Medicine; Visit Provider Internal Medicine
DX: N17.9 Acute kidney failure, unspecified (principal); E83.42 Hypomagnesemia; J44.0 Chronic obstructive pulmonary disease with (acute) lower respiratory infection; I10 Essential (primary) hypertension; R60.9 Edema, unspecified; G62.9 Polyneuropathy, unspecified
CPT/HCPCS: 99214

== ENCOUNTER 2023-05-25 08:55 | Outpatient (REF) | payer MEDICARE, SELFPAY ==
--- NOTE | ~2023-05-25 | US_ITS ---
EXAMINATION: US RETROPERITONEAL LIMITED (RENAL ONLY) CLINICAL INFORMATION: Renal failure unspecified. COMPARISON: CT abdomen pelvis 02/06/2023 TECHNIQUE: Real-time sonographic evaluation FINDINGS: RIGHT KIDNEY: 11.0 x 5.4 x 5.6 cm (SAG x AP x TRV). The kidney is normal in size, contour, and echogenicity. Renal cortical thickness is normal. No calculi or focal parenchymal lesions. No hydronephrosis. LEFT KIDNEY: 11.7 x 4.8 x 6.0. cm (SAG x AP x TRV). The kidney is normal in size, contour, and echogenicity. Renal cortical thickness is normal. No calculi or focal parenchymal lesions. No hydronephrosis. Incidental note is made of a small amount of free fluid in the right upper quadrant anterior and lateral to the liver as well as scant fluid in the left upper quadrant anterior spleen. US/US renal BI IMPRESSION: Kidneys unremarkable. Upper abdominal ascites is noted..
[2023-05-25 11:45] LABS: Appearance Urine Turbid; Color Urine Yellow; Glucose Urine UA Negative (Negative); Leukocyte Esterase Urine Large (3+) (Negative); Nitrite Urine Positive (Negative); PH 5.5 (5.0-9.0); Specific Gravity - Urine 1.015 (1.005-1.025); UMIC TRIGGER UA YES; Urine Blood Small (1+) (Negative); Urine Ketones Negative (Negative); Urine Protein Trace mg/dL (Neg-Trace)
[2023-05-25 12:05] LABS: Bacteria Urine 4+ (None Seen); Hyaline Casts Urine 0-2 /LPF (0-2); WBC Urine >50 /HPF (0-5)
== END 2023-05-25 08:56 | disposition home or self-care (01) ==
LOC: HO.HMGCX 08:55
PROVIDERS: PCP Internal Medicine; Visit Provider Internal Medicine
DX: N17.9 Acute kidney failure, unspecified (principal); E83.42 Hypomagnesemia; J44.9 Chronic obstructive pulmonary disease, unspecified; R82.90 Unspecified abnormal findings in urine
CPT/HCPCS: 76775; 81001; 87086; 87088; 87186

== ENCOUNTER 2023-05-26 09:24 | Outpatient (REF) | payer MEDICARE, SELFPAY ==
--- NOTE | ~2023-05-26 | US_ITS ---
EXAMINATION: US ABDOMEN COMPLETE CLINICAL INFORMATION: Cirrhosis, ascites. COMPARISON: Renal ultrasound of 05/25/[address] of 02/06/2023 TECHNIQUE: Real-time imaging of the abdominal viscera. FINDINGS: PANCREAS: Largely obscured though the visualized portions appear heterogeneous. ABDOMINAL AORTA: The proximal, mid, and distal segments are normal in caliber. INFERIOR VENA CAVA: Visualized portions are normal. LIVER: The liver is heterogeneous and nodular, as on the recent CT, indicative of cirrhosis. No discrete hepatic mass or biliary ductal dilatation is evident. Although evaluation is limited, blood flow in the main hepatic portal vein appears hepatopedal. There is a moderate volume of upper abdominal ascites. Fluid is evident about the gallbladder as well. GALLBLADDER: The gallbladder wall is thickened up to 6 mm. No calculi are detected. Pericholecystic fluid is likely related to the generalized edema. The gallbladder is physiologically distended without evidence of stones, sludge, polyps, wall thickening or pericholecystic fluid. COMMON BILE DUCT: Normal in caliber measuring 0.6 cm in diameter. RIGHT KIDNEY: Normal. No hydronephrosis. No renal calculi or focal parenchymal lesions. The kidney measures 10.0 cm in maximum dimension. LEFT KIDNEY: Normal. No hydronephrosis. No renal calculi or focal parenchymal lesions. The kidney measures 11.3 cm in maximum dimension. SPLEEN: Mildly enlarged. The spleen measures 14.0 cm in maximum dimension. Splenic granulomata is noted. FREE FLUID: Moderate upper abdominal ascites, perhaps increased since renal ultrasound of 05/25/[address] of 02/06/2023. US/US abdomen complete IMPRESSION: 1. Heterogeneous, nodular liver consistent with cirrhosis. Mild splenomegaly suggestive developing portal hypertension. 2. Moderate upper abdominal ascites, new since CT of 02/06/2023 and perhaps slightly increased since recent renal ultrasound of 05/25/2023. Given the heterogeneous liver developing ascites, if not done previously, hepatic MRI should BE considered to exclude the presence of a occult hepatocellular neoplasm. 3. Thickened gallbladder wall and pericholecystic fluid are presumably on the basis of liver disease and ascites rather than primary gallbladder disease.
== END 2023-05-26 09:25 | disposition home or self-care (01) ==
LOC: HO.HMGCX 09:24
PROVIDERS: PCP Internal Medicine; Visit Provider Internal Medicine
DX: K74.60 Unspecified cirrhosis of liver (principal); R18.8 Other ascites
CPT/HCPCS: 76700

== ENCOUNTER 2023-05-26 15:51 | Inpatient (IN) | payer MEDICARE, SELFPAY ==
--- NOTE | ~2023-05-26 | US_ITS ---
EXAMINATION: ULTRASOUND-GUIDED PARACENTESIS CLINICAL INDICATION: Abdominal pain. COMPARISON: Ultrasound abdomen complete 05/26/2023. TECHNIQUE: Following explaining ultrasound-guided paracentesis procedure, benefits and risk, a written consent was obtained. Patient was placed supine on ultrasound stretcher and preliminary ultrasound imaging was performed through the 4 quadrants. An optimal site was selected along the right midabdomen laterally and marked on the skin. The marked site was cleaned and draped in the usual sterile manner. 1% lidocaine was injected at puncture site. Through a small skin incision a 4 [place] catheter was advanced in the right midabdomen laterally. Approximately 10 mL of fluid was aspirated in a syringe. No more fluid could be removed subsequently. Following removal of the catheter complete hemostasis was achieved at puncture site. Simple dressing applied postprocedure. Patient tolerated procedure extremely well. FINDINGS: On preliminary ultrasound imaging there is a small amount of free fluid in the right midabdomen and right upper quadrant. Approximately 10 mL of cloudy yellowish fluid was drained from the right mid to lower quadrant. Part of this fluid was sent to lab as per referring physician's orders. US/US paracentesis abd w/image IMPRESSION: Successful diagnostic ultrasound-guided paracentesis performed.
--- NOTE | 2023-05-26 15:56 | ED_ITS ---
HPI - General Adult General Chief complaint: General Medical Stated complaint: Sent by Time Seen by Provider: 05/26/23 17:38 Source: patient Mode of arrival: ambulatory Limitations: no limitations History of Present Illness HPI narrative: A 73-year-old female presents for evaluation of liver cirrhosis. Patient was seen by her primary care provider who has been managing lower extremity edema with Lasix. She has been on Lasix 40 mg twice daily. She is now having increasing abdominal girth. She does have some abdominal discomfort but no fevers or chills. She is having some nausea but no vomiting or diarrhea. She denies any dark black stools. No hematemesis. She started wearing compression stockings to help with lower extremity edema. Unfortunate, the increase in Lasix and the compression stockings have not significantly improved her symptoms. She denies any orthopnea, PND he. She has noted some increasing bruising to her upper extremities. She has no confusion. She stopped drinking approximately 3 months ago cold turkey. She stopped on a Tuesday. She is due to see GI next week. Related Data Home Medications Medication Instructions Recorded Confirmed aspirin 81 mg tablet,delayed 81 mg PO DAILY 12/18/20 05/25/23 release cholecalciferol (vitamin D3) 50 50 mcg PO DAILY 12/18/20 05/25/23 mcg (2,000 unit) capsule diphenhydramine HCl 25 mg capsule 25 mg PO BEDTIME 01/05/21 05/25/23 (Benadryl) vitamin B complex (B 1 tab PO DAILY 07/27/21 05/25/23 Complex-Vitamin B12 tablet) Previous Rx's Medication Instructions Recorded ipratropium 0.5 mg-albuterol 3 mg 3 ml inhalation BID 30 days #180 mL 02/15/22 (2.5 mg base)/3 mL nebulization soln omeprazole 20 mg capsule,delayed 20 mg PO DAILY #90 caps 05/12/22 release fluoxetine 40 mg capsule 40 mg PO DAILY #90 caps 06/21/22 amlodipine 5 mg tablet 5 mg PO DAILY #90 tabs 06/29/22 metoprolol succinate 25 mg 25 mg PO DAILY #90 tabs 07/12/22 tablet,extended release 24 hr celecoxib 200 mg capsule 200 mg PO DAILY #90 caps 11/08/22 cyclobenzaprine 5 mg tablet 10 mg PO BEDTIME PRN for muscle 11/30/22 spasm #30 tabs fluticasone fur. 200 mcg-umeclid 1 inh inhalation DAILY 30 days #60 03/01/23 62.5 mcg-vilant 25 mcg ea inhalat.powder (Trelegy Ellipta) albuterol sulfate 90 mcg/actuation 1 puff inhalation QID PRN for 03/30/23 aerosol inhaler wheezing #17 grams magnesium oxide 400 mg (241.3 mg 400 mg PO DAILY #30 tabs 05/09/23 magnesium) tablet epinephrine 0.3 mg/0.3 mL 0.3 mg (0.3 mL) IM Q5M PRN 05/21/23 injection, auto-injector (EpiPen anaphylaxis #2 ea 2-Julian) furosemide 40 mg tablet 40 mg PO BID #90 tabs 05/25/23 gabapentin 300 mg capsule 300 mg PO BID #180 caps 05/25/23 nitrofurantoin 100 mg PO Q12H 7 days #14 caps 05/25/23 monohydrate/macrocrystals 100 mg capsule (Macrobid) Allergies Allergy/AdvReac Type Severity Reaction Status Date / Time hydromorphone [From DILAUDID] Allergy Intermediate hives, Verified 05/26/23 16:00 itching tramadol [From ULTRAM] Allergy Intermediate hives,itchi Verified 05/26/23 16:00 ng losartan Allergy Angioedema Verified 05/26/23 16:00 Review of Systems Review of Systems: CONSTITUTIONAL: Denies weight loss, fever and chills. HEENT: Denies changes in vision and hearing. RESPIRATORY: Denies SOB and cough. CV: Denies palpitations no CP. GI: + abdominal pain, nausea, -vomiting and diarrhea. : Denies dysuria and urinary frequency. MSK: Denies myalgia and joint pain. SKIN: Denies rash and pruritus. NEUROLOGICAL: Denies headache and syncope. PSYCHIATRIC: Denies recent changes in mood. Denies anxiety and depression. All other ROS are negative unless in HPI PMFSH Past Medical History Medical History Annual physical exam Anxiety, generalized Atrial arrhythmia Breast CA (~03/01/23) Cardiac LV ejection fraction of 40-49% Chronic GERD Chronic systolic (congestive) heart failure Colonoscopy refused COPD (chronic obstructive pulmonary disease) Excessive drinking of alcohol Flank pain, chronic History of breast cancer in female Hx of abdominal pain Hx of screening mammography Hypertension, essential Muscle spasm Neuropathy NICM (nonischemic cardiomyopathy) Osteoarthritis Pulmonary nodules Rheumatoid arthritis Vitamin B12 deficiency Vitamin D deficiency Surgical History H/O colonoscopy H/O right mastectomy History of section History of esophagogastroduodenoscopy (EGD) History of hysterectomy History of mastectomy History of removal of Port-a-Cath Family History Family History Father Non-Hodgkin lymphoma Mother CVD (cardiovascular disease) Brother Lung disease Sister No problems noted. Maternal Grandfather Colon cancer Maternal Grandmother CVD (cardiovascular disease) Paternal Grandfather Unknown family medical history Paternal Grandmother Unknown family medical history Brother No problems noted. Son No problems noted. Son No problems noted. Daughter No problems noted. 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 needs: No Hearing needs: No Vision needs: Yes (wears glasses ) Physical Exam ED Vital Signs: Vital Signs - 24 hr 05/26/23 16:00 05/26/23 19:39 Temperature 96.9 F 97.7 F Pulse Rate 76 74 Respiratory Rate 18 17 Blood Pressure 129/72 110/58 L Pulse Oximetry 97 96 Oxygen Delivery Method Room Air Room Air BMI result Body Mass Index 35.2 GEN: Well developed, no acute distress, alert, oriented HEENT: Normocephalic, atraumatic, normal external ears, nose appears normal, no oropharyngeal edema or exudates Eyes: Normal to appearance Neck: Supple, no lymphadenopathy Respiratory: Talks in complete sentences, no respiratory distress, clear to auscultation bilaterally Cardiovascular: Regular rate and rhythm, no murmurs rubs or gallops Abdomen: Soft, nontender, distended consistent with ascites, no guarding, no rebound Back: No CVA tenderness Extremities: No clubbing cyanosis or edema Neurologic: No focal neurologic deficits, cranial nerves 2-12 intact, strength is 5/5 bilaterally Skin: No rash Course Course Course Narrative: This is a rapid medical exam: Additional HPI, ROS, PE not included below will be deferred to primary provider. Patient is a 73-year-old female with history of ascites, cirrhosis, alcohol use disorder, SANDRA, COPD, systolic heart failure, nonischemic cardiomyopathy, OA, RA, GERD, HTN presenting to the emergency department with complaint of generalized swelling, decreased appetite. Patient's PCP, Dr. Knight referred patient to the ED and is requesting admission. Nurse from Dr. Knight's office states that Dr. Knight consulted with Dr. Montoya from GI and Dr. Valadez from renal and they all agree that patient should be admitted for management of her ascites. Dr. Knight does not have [place] Text but can be reached on her cellphone at . Had abdominal and renal U/Ss today. Plan: labs, ua Reevaluation(s) Reevaluation #1: Speaking with Dr. Knight, spoke with Dr. Montoya and Dr. Valadez. Dr. Montoya, felt patient should be admitted for IV lasix, octreotide, spironolactone. Patient was in the ED for UTI x 2. Will discuss with the patient. There was some apparent concern for hepatorenal syndrome. Time: 19:22 Reevaluation #2: Spoke with Nephrology, they would like the patient admitted for possible hepatorenal syndrome. I also discussed care with the hospitalist. Time: 20:10 Procedures Paracentesis Time Out Performed: Yes Local Anesthetic: lidocaine 1% Amount of anesthesia used (mL): 3 Fluid: other (Ultrasound-guided paracentesis was unable to obtain fluid from a pocket IOP was able to visualize.) Post Procedure Exam: awake, alert Patient Tolerated Procedure: well Complications: none Medical Decision Making Medical Decision Making MDM Narrative: 73-year-old female presents with liver cirrhosis, ascites, lower extremity edema. Her examination revealed a benign abdomen with no significant te nderness, rebound or guarding. There is present ascites. She did have an ultrasound on as an outpatient earlier today which I will review the results. Will order LFTs, INR check albumin level to rule out liver failure. She does have an elevated creatinine. I do not believe patient is an hepatic syndrome. I do not believe patient has SBP. Believe this have signs of portal hypertension and liver failure. I do not believe patient will likely need hospitalization however, should her lab work show some significant abnormalities would be reasonable to keep her for a GI/hepatology consultation. Site to see if there is a pocket to obtain for and a paracentesis. I doubt though she has SBP. Differential Diagnosis Differential Diagnoses: The differential diagnosis associated with the presentation includes (Liver cirrhosis, liver failure, alcoholic liver so failure, [place]) Admission/Observation Consideration of admission/observation: Escalation of care including admission/observation considered Lab Data MDM Lab Attestation statement: I reviewed the patient's lab results. 05/26/23 16:41 05/26/23 16:41 Labs: Lab Results 05/26/23 05/26/23 05/26/23 Range/Units 16:41 16:41 16:41 WBC 7.7 (4.8-10.8) X10*3/uL RBC 3.35 L (4.20-5.50) X10*6/uL Hgb 11.4 L (12.0-16.0) g/dl Hct 34.7 L (37.0-47.0) % MCV 103.6 H (80.0-98.0) fL MCH 34.0 H (27.0-33.0) pg MCHC 32.9 (31.0-35.0) g/dl RDW 14.4 (11.0-16.0) % Plt Count 157 L (160-400) X10*3/uL MPV 11.3 (9.4-12.3) fL Immature Gran % (Auto) 0.4 (0.0-0.4) % Neut % (Auto) 62.2 (45-73) % Lymph % (Auto) 25.3 (20-40) % Calloway % (Auto) 9.8 (2-11) % Eos % (Auto) 2.0 (0-4) % Baso % (Auto) 0.3 (0-2) % Lymph # (Auto) 1.9 (1.2-4.9) X10*3/uL Calloway # (Auto) 0.8 (0.1-1.2) X10*3/uL Eos # (Auto) 0.2 (0.0-0.4) X10*3/uL Baso # (Auto) 0.0 (0.0-0.2) X10*3/uL Abs Immat Gran (auto) 0.03 (0.00-0.03) X10*3/uL Absolute Neuts (auto) 4.8 (2.0-8.3) x10*3/uL Absolute Nucleated RBC 0.000 (0.0-0.012) X10*3/uL Nucleated RBC % (auto) 0.0 (0.0-0.2) /100WBC PT 16.3 H (11.1-13.3) SEC INR 1.3 H (0.9-1.1) Sodium 141 (135-145) mmol/L Potassium 4.0 (3.3-5.1) mmol/L Chloride 109 H (96-108) mmol/L Carbon Dioxide 22 (22-29) mmol/L Anion Gap 14 (12-20) BUN 40 H (9-16) mg/dL Creatinine 2.03 H (0.5-1.4) mg/dL Estim Creat Clear Calc 31.2 Estimated GFR 24 Random Glucose 103 (60-115) mg/dL Calcium 9.7 (8.4-10.2) mg/dL Total Bilirubin 2.2 H (0.0-1.0) mg/dL AST 44 H (5-31) U/L ALT 21 (0-31) U/L Alkaline Phosphatase 108 (39-117) U/L Total Protein 7.4 (6.5-8.0) g/dL Albumin 3.1 L (3.5-5.0) g/dL Urine Color Urine Appearance Urine pH (5.0-9.0) Ur Specific Bicknell (1.005-1.025) Urine Protein (Neg-Trace) mg/dL Urine Glucose (UA) (Negative) mg/dL Urine Ketones (Negative) mg/dL Urine Blood (Negative) Urine Nitrite (Negative) Ur Leukocyte Esterase (Negative) Urine RBC (0-2) /HPF Urine WBC (0-5) /HPF Ur Squamous Epith Cells (0-2) /HPF Urine Bacteria (None Seen) Hyaline Casts (0-2) /LPF 05/26/23 Range/Units 16:47 WBC (4.8-10.8) X10*3/uL RBC (4.20-5.50) X10*6/uL Hgb (12.0-16.0) g/dl Hct (37.0-47.0) % MCV (80.0-98.0) fL MCH (27.0-33.0) pg MCHC (31.0-35.0) g/dl RDW (11.0-16.0) % Plt Count (160-400) X10*3/uL MPV (9.4-12.3) fL Immature Gran % (Auto) (0.0-0.4) % Neut % (Auto) (45-73) % Lymph % (Auto) (20-40) % Calloway % (Auto) (2-11) % Eos % (Auto) (0-4) % Baso % (Auto) (0-2) % Lymph # (Auto) (1.2-4.9) X10*3/uL Calloway # (Auto) (0.1-1.2) X10*3/uL Eos # (Auto) (0.0-0.4) X10*3/uL Baso # (Auto) (0.0-0.2) X10*3/uL Abs Immat Gran (auto) (0.00-0.03) X10*3/uL Absolute Neuts (auto) (2.0-8.3) x10*3/uL Absolute Nucleated RBC (0.0-0.012) X10*3/uL Nucleated RBC % (auto) (0.0-0.2) /100WBC PT (11.1-13.3) SEC INR (0.9-1.1) Sodium (135-145) mmol/L Potassium (3.3-5.1) mmol/L Chloride (96-108) mmol/L Carbon Dioxide (22-29) mmol/L Anion Gap (12-20) BUN (9-16) mg/dL Creatinine (0.5-1.4) mg/dL Estim Creat Clear Calc Estimated GFR Random Glucose (60-115) mg/dL Calcium (8.4-10.2) mg/dL Total Bilirubin (0.0-1.0) mg/dL AST (5-31) U/L ALT (0-31) U/L Alkaline Phosphatase (39-117) U/L Total Protein (6.5-8.0) g/dL Albumin (3.5-5.0) g/dL Urine Color Yellow Urine Appearance Turbid Urine pH 5.5 (5.0-9.0) Ur Specific Bicknell 1.010 (1.005-1.025) Urine Protein Negative (Neg-Trace) mg/dL Urine Glucose (UA) Negative (Negative) mg/dL Urine Ketones Negative (Negative) mg/dL Urine Blood Small (1+) H (Negative) Urine Nitrite Negative (Negative) Ur Leukocyte Esterase Large (3+) H (Negative) Urine RBC 3-5 H (0-2) /HPF Urine WBC 21-50 (0-5) /HPF Ur Squamous Epith Cells 6-10 (0-2) /HPF Urine Bacteria 4+ (None Seen) Hyaline Casts 3-5 (0-2) /LPF Radiology Impression Discussion of test interpretation with radiology: I have reviewed the radiologist's reading. Radiologist Impression: US/US abdomen complete IMPRESSION: ? 1. Heterogeneous, nodular liver consistent with cirrhosis. Mild splenomegaly suggestive developing portal hypertension. ? 2. Moderate upper abdominal ascites, new since CT of 02/06/2023 and perhaps slightly increased since recent renal ultrasound of 05/25/2023. Given the heterogeneous liver developing ascites, if not done previously, hepatic MRI should BE considered to exclude the presence of a occult hepatocellular neoplasm. ? 3. Thickened gallbladder wall and pericholecystic fluid are presumably on the basis of liver disease and ascites rather than primary gallbladder disease. Dictated By: Reinaldo Miguel MD Signed By: <Electronically signed by Reinaldo Miguel MD in OV> 05/26/23 1109 External Record Review External record reviewed: Prior outpatient radiology (No ultrasound from earlier today, see results above.) Tests considered The following testing was considered but not selected: MRI liver, this should be done as an outpatient Prescription Management I considered prescription management with: Pain Medication Chronic Conditions Patient?s care impacted by: Hypertension Critical Care Time Critical Care Time Critical Care Time: Yes Total Critical Care Time: 45 Attestation: Approximately 45 minutes of critical care time spent in terms of bedside assessment, reassessment, discussion with patient and family, documentation, consultation with primary care provider Gastroenterology and Nephrology, and hospitalist. Her critical care time was spent outside of medical procedures. Discharge Plan Discharge Clinical Impression: Hepatorenal syndrome Patient Disposition: Admitted As Inpatient
[2023-05-26 16:00] VITALS: BP 129/72; PULSE 76; RESP 18; TEMP 36.1; O2SAT 97; BMI 35.2
[2023-05-26 16:45] LABS: MANUAL DIFF FLAG NO
[2023-05-26 16:48] LABS: Basophils Percent Auto 0.3 % (0-2); Eosinophils Absolute Auto 0.2 X10*3/uL (0.0-0.4); Hematocrit 34.7 % (37.0-47.0); Hemoglobin 11.4 g/dl (12.0-16.0); Imm Gran Abs Auto 0.03 X10*3/uL (0.00-0.03); Imm Gran Pct Auto 0.4 % (0.0-0.4); Lymphocytes Absolute Auto 1.9 X10*3/uL (1.2-4.9); Lymphocytes Percent Auto 25.3 % (20-40); Mean Corpuscular HGB Conc 32.9 g/dl (31.0-35.0); Mean Corpuscular Volume 103.6 fL (80.0-98.0); Mean Platelet Volume 11.3 fL (9.4-12.3); Monocytes Absolute Auto 0.8 X10*3/uL (0.1-1.2); Monocytes Percent Auto 9.8 % (2-11); Neutrophils Absolute Auto 4.8 x10*3/uL (2.0-8.3); Neutrophils Percent Auto 62.2 % (45-73); Platelet Count 157 X10*3/uL (160-400); Red Blood Count 3.35 X10*6/uL (4.20-5.50); Red Cell Distribution Width 14.4 % (11.0-16.0); White Blood Count 7.7 X10*3/uL (4.8-10.8)
[2023-05-26 16:55] LABS: INTERNATIONAL NORM RATIO 1.3 (0.9-1.1); Prothrombin Time 16.3 SEC (11.1-13.3)
[2023-05-26 17:01] LABS: Appearance Urine Turbid; Color Urine Yellow; Glucose Urine UA Negative (Negative); Leukocyte Esterase Urine Large (3+) (Negative); Nitrite Urine Negative (Negative); PH 5.5 (5.0-9.0); UMIC TRIGGER UACC YES; Urine Blood Small (1+) (Negative); Urine Ketones Negative (Negative); Urine Protein Negative (Neg-Trace)
[2023-05-26 17:04] LABS: Alanine Aminotransferase 21 U/L (0-31); Albumin Level 3.1 g/dL (3.5-5.0); Alkaline Phosphatase 108 U/L (39-117); Anion Gap 14 (12-20); Aspartate Amino Transferase 44 U/L (5-31); Bilirubin Total 2.2 mg/dL (0.0-1.0); Blood Urea Nitrogen 40 mg/dL (9-16); Calcium 9.7 mg/dL (8.4-10.2); Carbon Dioxide 22 mmol/L (22-29); Chloride 109 mmol/L (96-108); Creatinine Clr Calc Pharmacy 31.2; Estimated Glomerular Filt Rate 24; Glucose Random 103 mg/dL (60-115); Sodium 141 mmol/L (135-145); Total Protein 7.4 g/dL (6.5-8.0)
[2023-05-26 17:12] LABS: Bacteria Urine 4+ (None Seen); UACC Culture Trigger YES; WBC Urine 21-50 /HPF (0-5)
[2023-05-26 19:39] VITALS: BP 110/58; PULSE 74; RESP 17; TEMP 36.5; O2SAT 96
--- NOTE | 2023-05-26 20:00 | PC.NURSE ---
Assumed care of patient at 1900. Patient alert and oriented.
--- NOTE | 2023-05-26 20:34 | P.HPHOSP_ITS ---
History of Present Illness Date of Service: 05/26/23 Attending physician on admission: Rodri Valencia Chief Complaint: Intractable lower leg edema and abdominal swelling Pt is a 73-year-old female with a PMH significant for?COPD, HTN, HFpEF, (EF 55- 60% on 03/04/2022), IBS, hx of breast cancer, and hx of alcohol use disorder who presents to the ED with?increased lower leg edema and abdominal swelling. Patient states that her symptoms began a few weeks ago she noticed increasing lower leg edema that started in her ankles and began creeping up her legs. Despite increasing her furosemide from 20 mg to 40 mg daily and then 40 mg b.i.d. and wearing compression stockings, patient's symptoms did not improve. She also noticed increasing abdominal swelling and eventual mild 3/10 abdominal pain that is mostly centrally located but radiates to her right side. Patient is also been experiencing increased shortness of breath and exercise intolerance. Patient has long history of heavy alcohol use, reporting drinking up to a half gallon of whiskey or so every 2 days. Patient's last drink was 12 weeks ago. She also reports having loose stools earlier this morning. Patient denies chest pain/pressure, palpitations. No fever, chills, nausea, vomiting. In the ED patient was afebrile with slightly soft BP of 110/58. Labs were significant for H&H of 11.4 over 34.7, platelets of 157, PT 16.3, INR 1.3, BUN 40, creatinine 2.03, bilirubin 2.2, AST 44, albumin of 3.1. UA positive for blood, 3+ leukocyte esterase, wbc's 21-50, epithelial cells 6-10, bacteria 4+.Renal ultrasound yesterday on 05/25/2023 showed unremarkable kidneys with upper abdominal ascites. Abdominal ultrasound today?showed liver cirrhosis with mild splenomegaly suggestive of developing portal hypertension, new moderate upper abdominal ascites, and thickened gallbladder wall and pericholecystic fluid presumably in the setting of liver disease and ascites rather than primary gallbladder disease. Pt will be admitted to the hospital for treatment and further evaluation of new onset decompensated cirrhosis with ascites. Review of Systems Review of Systems: Abdominal swelling Central abdominal pain, radiating to right side Lower leg edema Worsening SOB and exercise tolerance Loose stools since this morning Denies chest pain/pressure, palpitations No fever, chills, nausea, vomiting Yes all other systems are reviewed and are negative [facility] Medical History Annual physical exam Anxiety, generalized Atrial arrhythmia Breast CA (~03/01/23) Cardiac LV ejection fraction of 40-49% Chronic GERD Chronic systolic (congestive) heart failure Colonoscopy refused COPD (chronic obstructive pulmonary disease) Excessive drinking of alcohol Flank pain, chronic History of breast cancer in female Hx of abdominal pain Hx of screening mammography Hypertension, essential Muscle spasm Neuropathy NICM (nonischemic cardiomyopathy) Osteoarthritis Pulmonary nodules Rheumatoid arthritis Vitamin B12 deficiency Vitamin D deficiency Family History Father Non-Hodgkin lymphoma Mother CVD (cardiovascular disease) Brother Lung disease Sister No problems noted. Maternal Grandfather Colon cancer Maternal Grandmother CVD (cardiovascular disease) Paternal Grandfather Unknown family medical history Paternal Grandmother Unknown family medical history Brother No problems noted. Son No problems noted. Son No problems noted. Daughter No problems noted. 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 needs: No Hearing needs: No Vision needs: Yes (wears glasses ) Meds Allergies Allergy/AdvReac Type Severity Reaction Status Date / Time hydromorphone [From DILAUDID] Allergy Intermediate hives, Verified 05/26/23 16:00 itching tramadol [From ULTRAM] Allergy Intermediate hives,itchi Verified 05/26/23 16:00 ng losartan Allergy Angioedema Verified 05/26/23 16:00 Active Medications: Current Medications Pharmacy Consult (Consult Rx Perform Med Rec) 1 each MISCELLANE ONCE PRN PRN Reason: Consult order Home Medications Medication Instructions Recorded Confirmed Last Taken Type aspirin 81 mg tablet,delayed 81 mg PO DAILY 12/18/20 05/26/23 05/26/23 History release cholecalciferol (vitamin D3) 50 50 mcg PO DAILY 12/18/20 05/26/23 05/26/23 History mcg (2,000 unit) capsule vitamin B complex (B 1 tab PO DAILY 07/27/21 05/26/23 05/26/23 History Complex-Vitamin B12 tablet) furosemide 40 mg tablet 40 mg PO DAILY 05/26/23 05/26/23 05/26/23 History omeprazole 20 mg capsule,delayed 20 mg PO DAILY@0630 05/26/23 05/26/23 05/26/23 History release Physical Exam Vital Signs and Narrative: Vital Signs: Last Vital Signs Temp 97.7 F 05/26/23 19:39 Pulse 74 05/26/23 19:39 Resp 17 05/26/23 19:39 BP 110/58 L 05/26/23 19:39 Pulse Ox 96 05/26/23 19:39 O2 Del Method Room Air 05/26/23 19:39 BMI result Body Mass Index 35.2 Constitutional: Alert, in no acute distress. Mental Status: Oriented to person, place and time. Eyes: Pupils are equal, round, and reactive to light. Ear, Nose, and Throat: Oropharynx clear, mucous membranes moist. Ears and nose without deformities. Trachea midline. Respiratory: Clear to auscultation bilaterally. No wheezing, rales, or rhonchi. Cardiovascular: S1, S2 regular. No murmurs, rubs, or gallops. Gastrointestinal: Abdomen firm, distended, with periumbilical and right-sided tenderness. Normal bowel sounds. Neurologic: Cranial nerves II-XII are grossly intact bilaterally. No focal neurological deficits. Moves all extremities spontaneously. Skin: No rashes or lesions noted. Musculoskeletal: No cyanosis or clubbing. Extremities: 2+ pitting edema bilaterally. Psychiatric: Normal mood and affect. Results Labs 05/26/23 16:41 05/26/23 16:41 Labs: Laboratory Results - last 24 hr 05/26/23 05/26/23 05/26/23 16:41 16:41 16:41 MCV 103.6 H MCH 34.0 H MCHC 32.9 RDW 14.4 Plt Count 157 L MPV 11.3 Immature Gran % (Auto) 0.4 Neut % (Auto) 62.2 Lymph % (Auto) 25.3 Beckham % (Auto) 9.8 Eos % (Auto) 2.0 Baso % (Auto) 0.3 Lymph # (Auto) 1.9 Beckham # (Auto) 0.8 Eos # (Auto) 0.2 Baso # (Auto) 0.0 Abs Immat Gran (auto) 0.03 Absolute Neuts (auto) 4.8 Absolute Nucleated RBC 0.000 Nucleated RBC % (auto) 0.0 PT 16.3 H INR 1.3 H Anion Gap 14 Estim Creat Clear Calc 31.2 Estimated GFR 24 Random Glucose 103 Calcium 9.7 Total Bilirubin 2.2 H AST 44 H ALT 21 Alkaline Phosphatase 108 Total Protein 7.4 Albumin 3.1 L Urine Color Urine Appearance Urine pH Ur Specific [place] Urine Protein Urine Glucose (UA) Urine Ketones Urine Blood Urine Nitrite Ur Leukocyte Esterase Urine RBC Urine WBC Ur Squamous Epith Cells Urine Bacteria Hyaline Casts 05/26/23 16:47 MCV MCH MCHC RDW Plt Count MPV Immature Gran % (Auto) Neut % (Auto) Lymph % (Auto) Beckham % (Auto) Eos % (Auto) Baso % (Auto) Lymph # (Auto) Beckham # (Auto) Eos # (Auto) Baso # (Auto) Abs Immat Gran (auto) Absolute Neuts (auto) Absolute Nucleated RBC Nucleated RBC % (auto) PT INR Anion Gap Estim Creat Clear Calc Estimated GFR Random Glucose Calcium Total Bilirubin AST ALT Alkaline Phosphatase Total Protein Albumin Urine Color Yellow Urine Appearance Turbid Urine pH 5.5 Ur Specific [place] 1.010 Urine Protein Negative Urine Glucose (UA) Negative Urine Ketones Negative Urine Blood Small (1+) H Urine Nitrite Negative Ur Leukocyte Esterase Large (3+) H Urine RBC 3-5 H Urine WBC 21-50 Ur Squamous Epith Cells 6-10 Urine Bacteria 4+ Hyaline Casts 3-5 Assessment and Plan (1) Liver cirrhosis: Status: Acute (2) Ascites: Status: Acute Plan Pt is a 73-year-old female with a PMH significant for?COPD, HTN, HFpEF, (EF 55- 60% on 03/04/2022), IBS, hx of breast cancer, and hx of alcohol use disorder who presents to the ED with?increased lower leg edema and abdominal swelling. Pt will be admitted to the hospital for treatment and further evaluation of new onset decompensated cirrhosis with ascites. Acute decompensated liver cirrhosis Patient with elevated bilirubin, AST, ascites, 2+ pitting bilateral lower leg edema, evidence on abdominal ultrasound Likely secondary to chronic heavy alcohol use Ultrasound-guided paracentesis Thiamine, folic acid GI consult Hold lactulose for now due to loose stools Continue home furosemide Follow peritoneal fluid labs Patient strongly encouraged to keep of staining from alcohol CKD 3 Patient BUN 40, creatinine 2.03 Not followed by Nephrology outpatient Nephrology consult to optimize diuretics HTN Hold antihypertensives for now due to soft BP Resume as indicated COPD/asthma Not in acute exacerbation Continue home inhalers Question of UTI Patient treated for UTI 2 weeks ago Had urine ray analyzed, restarted on antibiotics 1 day ago UA from ED today positive for leukocyte esterase, RBC 3-5, WBC 20 1-50, epithelial cells 6-10, bacteria 4+ Patient symptomatic with ?tingling? when urinating up to 2 days ago Will start on ceftriaxone, started 05/26/2023 Follow cultures Mood disorder Continue home meds Full Code Attending:?Dr. Valencia DVT Prophylaxis: Lovenox Pt will require a hospitalization of at least two nights for treatment of?new onset acute decompensated cirrhosis in the setting of CKD 3. Time Spent With Patient Time: Total time managing care of this patient today ____ minutes. Quality Stroke Does the patient have a stroke diagnosis?: No VTE Prior VTE?: No VTE Risk Level:: Medical - moderate - high VTE Device Contraindication: Treatment Not Indicated VTE Drug Contraindication: N/A - Med Ordered
--- NOTE | 2023-05-26 21:36 | PHA.MEDREC ---
Pharmacy Consult ? Medication Reconciliation Pharmacy has completed the medication reconciliation. Pt was able to recognize names and doses of her medications when they were listed. Confirmed meds with patient using claim history to confirm dosing. Her pcp recently increased her dose on furosemide to 40 mg bid but she has not started on that higher dosing yet.
[2023-05-26] MEDS: Lactulose 20 GM/30 ML SOLUTION PO (21:50)
[2023-05-26] MEDS: Enoxaparin Sodium 40 MG/0.4 ML SYRINGE SUBCUT (21:50)
[2023-05-26 22:00] VITALS: BP 105/55; PULSE 75; RESP 18; TEMP 36.6; O2SAT 97
[2023-05-26] MEDS: cefTRIAXone sodium 1 GM in 0.9 % Sodium Chloride 50 ML IV (23:39)
[2023-05-26] MEDS: Gabapentin 300 MG CAPSULE PO (23:39)
[2023-05-26] MEDS: Thiamine HCL 100 MG TABLET PO (23:39)
[2023-05-26 23:53] VITALS: BP 108/50; PULSE 76; RESP 17; TEMP 36.9; O2SAT 97
[2023-05-27 02:34] VITALS: BP 114/59; PULSE 89; RESP 17; TEMP 36.6; O2SAT 98
[2023-05-27 03:24] VITALS: BP 108/57; PULSE 76; RESP 18; TEMP 36.7; O2SAT 95
[2023-05-27] MEDS: 0.9 % Sodium Chloride Flush 3 ML SYRINGE IVFLUSH ×4 (03:34→23:20)
--- NOTE | 2023-05-27 03:42 | MHC.EDTECH ---
Assumed care of pt at 0300AM,Completed rounds.vitals taken and belongings list completed. Gave pt a cup of icewater per request.
[2023-05-27 05:38] LABS: MANUAL DIFF FLAG NO
[2023-05-27 05:44] LABS: Basophils Percent Auto 0.6 % (0-2); Eosinophils Absolute Auto 0.2 X10*3/uL (0.0-0.4); Eosinophils Percent Auto 2.7 % (0-4); Hematocrit 31.7 % (37.0-47.0); Hemoglobin 10.4 g/dl (12.0-16.0); Imm Gran Abs Auto 0.01 X10*3/uL (0.00-0.03); Imm Gran Pct Auto 0.2 % (0.0-0.4); Lymphocytes Absolute Auto 1.9 X10*3/uL (1.2-4.9); Lymphocytes Percent Auto 28.2 % (20-40); Mean Corpuscular HGB Conc 32.8 g/dl (31.0-35.0); Mean Corpuscular Hemoglobin 33.4 pg (27.0-33.0); Mean Corpuscular Volume 101.9 fL (80.0-98.0); Mean Platelet Volume 11.8 fL (9.4-12.3); Monocytes Absolute Auto 0.7 X10*3/uL (0.1-1.2); Monocytes Percent Auto 10.7 % (2-11); Neutrophils Absolute Auto 3.8 x10*3/uL (2.0-8.3); Neutrophils Percent Auto 57.6 % (45-73); Platelet Count 139 X10*3/uL (160-400); Red Blood Count 3.11 X10*6/uL (4.20-5.50); Red Cell Distribution Width 14.5 % (11.0-16.0); White Blood Count 6.7 X10*3/uL (4.8-10.8)
[2023-05-27 06:02] LABS: Anion Gap 15 (12-20); Blood Urea Nitrogen 39 mg/dL (9-16); Calcium 9.4 mg/dL (8.4-10.2); Carbon Dioxide 20 mmol/L (22-29); Chloride 110 mmol/L (96-108); Estimated Glomerular Filt Rate 23; Glucose Random 104 mg/dL (60-115); Potassium 3.4 mmol/L (3.3-5.1); Sodium 142 mmol/L (135-145)
--- NOTE | 2023-05-27 06:42 | P.CNGI_ITS ---
History of Present Illness Data of Consult Service Date: 05/27/23 Requesting physician: Rodri Valencia Primary Care Provider: Adele Knight MD HPI Reason for consult: decompensated cirrhosis with ascites 73 YF with COPD, HTN, HFpEF, (EF 55-60% on 03/04/2022), IBS, hx of breast cancer, and hx of alcohol use disorder seen at [facility] on 05/26/23 with?increasing abdominal distension and LE edema.? Patient stated that her symptoms began 3-4 weeks ago with edema of her lower extremities.? Pt was seen at [facility] and started on Lasix and dose increased to 40 mg twice daily. Despite increasing her furosemide from 20 mg to 40 mg daily and then 40 mg b.i.d. and wearing compression stockings, patient's symptoms did not improve.? She also noticed increasing abdominal distension and mild 3-4/10 aching abdominal pain that is mostly centrally located but radiates to her right side.? Patient notes increased shortness of breath and exercise intolerance.? Patient admits to a long history of heavy alcohol use, (drinking up to 5-6 drinks of whiskey every 2 days).? Patient's last drink was 12 weeks ago.? She also reports having loose stools earlier this morning with some BRBPR/ (Pt is unsure if blood came from the rectum or was in her urine).? Patient denied chest pain/pressure, palpitations, fever, chills, nausea, vomiting.? Pt quitted smoking in 1994. 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 Her maternal grandfather had rectal cancer in his 70s. In the ED patient was afebrile with BP of 110/58. Labs were significant for H&H of 11.4 over 34.7, platelets of 157, PT 16.3, INR 1.3, BUN 40, creatinine 2.03, bilirubin 2.2, AST 44, albumin of 3.1.? UA positive for blood, 3+ leukocyte esterase, wbc's 21-50, epithelial cells 6- 10, bacteria 4+. Pt was admitted to the hospital for treatment and further evaluation of new onset decompensated cirrhosis with ascites. 05/26/23 ABD US SHOWED: 1. Heterogeneous, nodular liver consistent with cirrhosis. Mild splenomegaly suggestive developing portal hypertension. ? 2. Moderate upper abdominal ascites, new since CT of 02/06/2023 and perhaps slightly increased since recent renal ultrasound of 05/25/2023. Given the heterogeneous liver developing ascites, if not done previously, hepatic MRI should BE considered to exclude the presence of a occult hepatocellular neoplasm. ? 3. Thickened gallbladder wall and pericholecystic fluid are presumably on the basis of liver disease and ascites rather than primary gallbladder disease. Review of Systems 2 Review of Systems: Abdominal swelling Central abdominal pain, radiating to right side Lower leg edema Worsening SOB and exercise tolerance Loose stools since this morning Denies chest pain/pressure, palpitations No fever, chills, nausea, vomiting Yes all other systems are reviewed and are negative [facility] Past Medical History Medical History (Updated 08/03/23 @ 13:07 by Марина Montoya MD) Neuropathy Hx of screening mammography Vitamin B12 deficiency Vitamin D deficiency Annual physical exam Breast CA (~03/01/23) Flank pain, chronic Hx of abdominal pain Excessive drinking of alcohol COPD (chronic obstructive pulmonary disease) Pulmonary nodules Atrial arrhythmia Chronic systolic (congestive) heart failure NICM (nonischemic cardiomyopathy) Cardiac LV ejection fraction of 40-49% Osteoarthritis Rheumatoid arthritis Colonoscopy refused Muscle spasm History of breast cancer in female Chronic GERD Anxiety, generalized Hypertension, essential Family History Family History Father Non-Hodgkin lymphoma Mother CVD (cardiovascular disease) Brother Lung disease Sister No problems noted. Maternal Grandfather Colon cancer Maternal Grandmother CVD (cardiovascular disease) Paternal Grandfather Unknown family medical history Paternal Grandmother Unknown family medical history Brother No problems noted. Son No problems noted. Son No problems noted. Daughter No problems noted. Other Mental health disorder Substance use disorder Surgical History Surgical History (Updated 07/19/23 @ 13:18 by Eboni Lala) History of esophagogastroduodenoscopy (EGD) H/O colonoscopy History of removal of Port-a-Cath History of hysterectomy History of section H/O right mastectomy Social History Social History Household Members: None Housing: Apartment Do you presently have visiting nurse or other home services: No Alcohol intake: former Year quit: 2022 Patient Tobacco Use Status: Former Tobacco user Quit Date: 1994 Tobacco use type: Cigarette Years Smoked: 10 e-Cigarette/Vaping Use: Never Used Second Hand Smoke Exposure: No service: No 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 needs: No Hearing needs: No Vision needs: Yes (wears glasses ) Meds Allergies Allergy/AdvReac Type Severity Reaction Status Date / Time hydromorphone [From DILAUDID] Allergy Intermediate hives, Verified 08/03/23 12:35 itching losartan Allergy Intermediate Angioedema Verified 08/03/23 12:35 tramadol [From ULTRAM] Allergy Intermediate hives,itchi Verified 08/03/23 12:35 ng Active Medications: Current Medications Acetaminophen (Acetaminophen 325 Mg Tablet) 650 mg PO Q6H PRN PRN Reason: Pain, Mild (Pain Scale 1-3) Albuterol Sulfate (Albuterol Sulfate 90 Mcg 8 Gm Inhaler) 1 puff INHALE RQID PRN PRN Reason: for wheezing Aspirin (Aspirin Enteric Coated 81 Mg Tablet.) 81 mg PO DAILY [facility] Celecoxib (Celecoxib 200 Mg Capsule) 200 mg PO DAILY [facility] Enoxaparin Sodium (Enoxaparin Sodium 40 Mg/0.4 Ml Syringe) 40 mg SUBCUT Q24H [facility] Last Admin: 05/26/23 21:50 Dose: 40 mg Fluoxetine HCl (Fluoxetine Hcl 20 Mg Capsule) 40 mg PO DAILY [facility] Fluticasone/Umeclidinium/Vilanterol (Fluticasone/Umeclidinium/Vilanterol 200/62.5/25 Blst.W.Dev) 1 puff INHALE RDAILY [facility] Folic Acid (Folic Acid 1 Mg Tablet) 1 mg PO DAILY [facility] Furosemide (Furosemide 40 Mg Tablet) 40 mg PO DAILY [facility]; Protocol Gabapentin (Gabapentin 300 Mg Capsule) 300 mg PO BID [facility] Last Admin: 05/26/23 23:39 Dose: 300 mg Ceftriaxone Sodium 1 gm/ (Sodium Chloride) 50 mls @ 100 mls/hr IV Q24H [facility] Last Admin: 05/26/23 23:39 Dose: 100 mls/hr Lactulose (Lactulose 20 Gm/30 Ml Solution) 20 gm PO BID [facility] Last Admin: 05/26/23 21:50 Dose: 20 gm Magnesium Oxide (Magnesium Oxide 400 Mg Tablet) 400 mg PO DAILY [facility] Melatonin (Melatonin 3 Mg Tablet) 6 mg PO BEDTIME PRN PRN Reason: Insomnia Omeprazole (Omeprazole 20 Mg Capsule.Dr) 20 mg PO DAILY@0630 [facility] Ondansetron HCl (Ondansetron Hcl 4 Mg/2 Ml Vial) 4 mg IVPUSH Q8H PRN PRN Reason: Nausea and Vomiting Pharmacy Consult (Consult Rx Perform Med Rec) 1 each MISCELLANE ONCE PRN PRN Reason: Consult order Sodium Chloride (0.9 % Sodium Chloride Flush 3 Ml Syringe) 3 ml IVFLUSH QSHIFT [facility] Last Admin: 05/27/23 03:34 Dose: 3 ml Thiamine HCl (Thiamine Hcl 100 Mg Tablet) 100 mg PO DAILY [facility] Last Admin: 05/26/23 23:39 Dose: 100 mg Home Medications Medication Instructions Recorded Confirmed Last Taken Type aspirin 81 mg tablet,delayed 81 mg PO DAILY 12/18/20 07/19/23 07/18/23 History release cholecalciferol (vitamin D3) 50 50 mcg PO DAILY 12/18/20 07/19/23 05/26/23 History mcg (2,000 unit) capsule vitamin B complex (B 1 tab PO DAILY 07/27/21 07/19/23 05/26/23 History Complex-Vitamin B12 tablet) furosemide 20 mg tablet 20 mg PO BID 07/15/23 07/19/23 Unknown History omeprazole 20 mg capsule,delayed 20 mg PO DAILY 07/15/23 07/19/23 07/19/23 History release Physical Exam 2 Vital Signs: Vital Signs: Last Vital Signs Temp 98.0 F 05/27/23 03:24 Pulse 76 05/27/23 03:24 Resp 18 05/27/23 03:24 BP 108/57 L 05/27/23 03:24 Pulse Ox 95 05/27/23 03:24 O2 Del Method Room Air 05/27/23 03:24 BMI result Body Mass Index 35.2 Const: General: healthy appearing and no acute distress Nutritional Appearance: obese Orientation/consciousness: patient oriented x3 L imitations: no limitations HEENT: Head: Yes normal to inspection Ears: hearing grossly normal bilaterally Mouth: Normal oral and palatal mucosa present Eyes: Sclerae: sclerae normal Pupils: Equal, round and reactive pupils present Neck: Neck: Yes normal visual inspection Chest: Chest palpation & inspection: normal inspection of the chest Resp: Effort & Inspection: normal respiratory effort Auscultation: clear to auscultation bilaterally Cardio: Palpation: normal PMI Rate: regular rate Rhythm: regular rhythm Heart sounds: S1 normal heart sound present, S2 normal heart sound present and no murmurs GI: Inspection: Yes distended Palpation (GI): Soft to palpation, nontender and No hepatosplenomegaly present Auscultation: normal bowel sounds Rectal Exam - Female: deferred Skin: General skin exam: no rashes or lesions noted and spider nevi (on anterior chest) Neuro: General: patient oriented x3, gait normal and moves all extremities Cranial nerves: Yes Equal, round and reactive pupils present Extrem: General: Yes pedal edema Psych: Appearance: grossly normal Mental Status: mental status grossly normal Results Labs 05/29/23 05:35 05/29/23 05:35 Labs: Short CBC 05/26/23 05/27/23 Range/Units 16:41 05:09 WBC 7.7 6.7 (4.8-10.8) X10*3/uL Hgb 11.4 L 10.4 L (12.0-16.0) g/dl Hct 34.7 L 31.7 L (37.0-47.0) % Plt Count 157 L 139 L (160-400) X10*3/uL BMP 05/26/23 05/27/23 16:41 05:09 Sodium 141 142 Potassium 4.0 3.4 Chloride 109 H 110 H Carbon Dioxide 22 20 L BUN 40 H 39 H Creatinine 2.03 H 2.11 H Calcium 9.7 9.4 Liver Function 05/26/23 Range/Units 16:41 Total Bilirubin 2.2 H (0.0-1.0) mg/dL AST 44 H (5-31) U/L ALT 21 (0-31) U/L Alkaline Phosphatase 108 (39-117) U/L Albumin 3.1 L (3.5-5.0) g/dL Urine 05/26/23 Range/Units 16:47 Urine Color Yellow Urine Appearance Turbid Urine pH 5.5 (5.0-9.0) Ur Specific Guy 1.010 (1.005-1.025) Urine Protein Negative (Neg-Trace) mg/dL Urine Glucose (UA) Negative (Negative) mg/dL Assessment and Plan (1) Ascites: Status: Acute (2) Liver cirrhosis: Status: Acute Plan 73 YF with COPD, HTN, HFpEF, (EF 55-60% on 03/04/2022), IBS, hx of breast cancer, and hx of alcohol use disorder admitted [place] [facility] [place] with?worsening abdominal distension and lower extremity edema despite use of diuretics over the past 4 weeks. Pt has decompensated cirrhosis complicated by ascites, thrombocytopenia, renal insufficiency and denies symptoms of hepatic encephalopathy. MELDNa score is 19. Etiology of cirrhosis is likley a combnation of ETOH and WILLIAM. Her LFTs have been elevated since 2019 and negative Hepatitis B and C serologies and FRANCOIS in the past. Pt admitted with ascites refractory to diurectics and with concerns for hepatorenal syndrome RECOMMENDATIONS: 1. Agree with large volume paracentesis and check ascitic fluid for cell count, diff, albumin and protein level. 2. US with Duplex to rule out portal vein thrombosis. 3. Hold diuretics and beta-blockers and give IV albumin 100 gram per day x 2 days 4. If no improvement in renal function with above, pt can be treated with Midodrine 7.5 mg three times daily and Octreotide 100 mcg subcutaneously three times daily Time Spent With Patient Time: Total time managing care of this patient today ____ minutes. Procedures Date of Service Date of Service: 08/03/23
[2023-05-27] MEDS: Omeprazole 20 MG CAPSULE.DR PO (06:51)
--- NOTE | 2023-05-27 06:56 | MHC.EDTECH ---
Hourly rounds completed,patient ambulated to Bathroom with no assistance. call dyson within reach
--- NOTE | 2023-05-27 07:17 | PC.NURSE ---
Resumed care of patient, she is currently denying any pain, nausea, vomiting. Pt had just returned from the bathroom, urine at bedside, no s/s of blood noted. Pt is concerned that she has seen MD catarina aware. Breakfast at bedside, awaiting bed placement upstairs at this time
[2023-05-27] MEDS: Folic Acid 1 MG TABLET PO (07:45)
[2023-05-27] MEDS: FLUoxetine HCl 20 MG CAPSULE 40 MG PO (07:45)
[2023-05-27] MEDS: Aspirin Enteric Coated 81 MG TABLET.DR PO (07:45)
[2023-05-27] MEDS: Magnesium Oxide 400 MG TABLET PO (07:45)
[2023-05-27] MEDS: Thiamine HCL 100 MG TABLET PO (07:46)
[2023-05-27] MEDS: Gabapentin 300 MG CAPSULE PO ×2 (07:46→21:06)
[2023-05-27 08:00] VITALS: BP 122/62; PULSE 79; RESP 20; TEMP 36.7; O2SAT 95
[2023-05-27 08:02] VITALS: BP 102/57; PULSE 77; RESP 14; TEMP 36.7; O2SAT 97
[2023-05-27 08:30] LABS: Sodium Urine Random < 20.0 mmol/L
--- NOTE | 2023-05-27 08:48 | PC.NURSE ---
Pt brought to IR for paracentesis
[2023-05-27] MEDS: Lidocaine HCl 1 % MPF 5 ML VIAL SUBCUT (09:46)
[2023-05-27 10:11] LABS: MN% 89.6 %; PMN% 10.4 %; WBC Peritoneal Fluid 0.275 X10*3/uL
--- NOTE | 2023-05-27 10:33 | P.PNIM_ITS ---
Subjective Subjective Date of Service: 05/27/23 Interval History: pruritis Physical Exam Vital Signs: Vital Signs: Last Vital Signs Temp 98.0 F 05/27/23 08:02 Pulse 77 05/27/23 08:02 Resp 14 05/27/23 08:02 BP 102/57 L 05/27/23 08:02 Pulse Ox 97 05/27/23 08:02 O2 Del Method Room Air 05/27/23 08:02 BMI result Body Mass Index 35.2 General: AO X 3, no acute distress Resp: CTA bilateral, no accessory muscles used CVS: S1,S2,RRR GI: soft, non tender, non distended Neuro: motor grossly intact, alert Psych: appropriate affect, appropriate insight Objective Data Active Medications Acetaminophen (Acetaminophen 325 Mg Tablet) 650 mg PO Q6H PRN PRN Reason: Pain, Mild (Pain Scale 1-3) Albuterol Sulfate (Albuterol Sulfate 90 Mcg 8 Gm Inhaler) 1 puff INHALE RQID PRN PRN Reason: for wheezing Aspirin (Aspirin Enteric Coated 81 Mg Tablet.) 81 mg PO DAILY [facility] Last Admin: 05/27/23 07:45 Dose: 81 mg Documented By: CANDIS Celecoxib (Celecoxib 200 Mg Capsule) 200 mg PO DAILY [facility] Enoxaparin Sodium (Enoxaparin Sodium 40 Mg/0.4 Ml Syringe) 40 mg SUBCUT Q24H [facility] Last Admin: 05/26/23 21:50 Dose: 40 mg Documented By: MILLY Fluoxetine HCl (Fluoxetine Hcl 20 Mg Capsule) 40 mg PO DAILY [facility] Last Admin: 05/27/23 07:45 Dose: 40 mg Documented By: CANDIS Fluticasone/Umeclidinium/Vilanterol (Fluticasone/Umeclidinium/Vilanterol 200/62.5/25 Blst.W.Dev) 1 puff INHALE RDAILY [facility] Folic Acid (Folic Acid 1 Mg Tablet) 1 mg PO DAILY [facility] Last Admin: 05/27/23 07:45 Dose: 1 mg Documented By: CANDIS Furosemide (Furosemide 40 Mg Tablet) 40 mg PO DAILY [facility]; Protocol Last Admin: 05/27/23 08:48 Dose: Not Given Documented By: CANDIS Non-Admin Reason: Physician Held Med Gabapentin (Gabapentin 300 Mg Capsule) 300 mg PO BID [facility] Last Admin: 05/27/23 07:46 Dose: 300 mg Documented By: CANDIS Ceftriaxone Sodium 1 gm/ (Sodium Chloride) 50 mls @ 100 mls/hr IV Q24H [facility] Last Infusion: 05/27/23 00:30 Dose: 0 mls/hr Documented By: MILLY Lactulose (Lactulose 20 Gm/30 Ml Solution) 20 gm PO BID [facility] Last Admin: 05/26/23 21:50 Dose: 20 gm Documented By: MILLY Magnesium Oxide (Magnesium Oxide 400 Mg Tablet) 400 mg PO DAILY [facility] Last Admin: 05/27/23 07:45 Dose: 400 mg Documented By: CANDIS Melatonin (Melatonin 3 Mg Tablet) 6 mg PO BEDTIME PRN PRN Reason: Insomnia Omeprazole (Omeprazole 20 Mg Capsule.Dr) 20 mg PO DAILY@0630 [facility] Last Admin: 05/27/23 06:51 Dose: 20 mg Documented By: MILLY Ondansetron HCl (Ondansetron Hcl 4 Mg/2 Ml Vial) 4 mg IVPUSH Q8H PRN PRN Reason: Nausea and Vomiting Pharmacy Consult (Consult Rx Perform Med Rec) 1 each MISCELLANE ONCE PRN PRN Reason: Consult order Sodium Chloride (0.9 % Sodium Chloride Flush 3 Ml Syringe) 3 ml IVFLUSH QSHIFT [facility] Last Admin: 05/27/23 07:46 Dose: 3 ml Documented By: CANDIS Thiamine HCl (Thiamine Hcl 100 Mg Tablet) 100 mg PO DAILY [facility] Last Admin: 05/27/23 07:46 Dose: 100 mg Documented By: CANDIS Labs 05/27/23 05:09 05/27/23 05:09 Labs: Laboratory Results - last 24 hr 05/26/23 05/26/23 05/26/23 16:41 16:41 16:41 MCV 103.6 H MCH 34.0 H MCHC 32.9 RDW 14.4 Plt Count 157 L MPV 11.3 Immature Gran % (Auto) 0.4 Neut % (Auto) 62.2 Lymph % (Auto) 25.3 Bennett % (Auto) 9.8 Eos % (Auto) 2.0 Baso % (Auto) 0.3 Lymph # (Auto) 1.9 Bennett # (Auto) 0.8 Eos # (Auto) 0.2 Baso # (Auto) 0.0 Abs Immat Gran (auto) 0.03 Absolute Neuts (auto) 4.8 Absolute Nucleated RBC 0.000 Nucleated RBC % (auto) 0.0 PT 16.3 H INR 1.3 H Anion Gap 14 Estim Creat Clear Calc 31.2 Estimated GFR 24 Random Glucose 103 Calcium 9.7 Total Bilirubin 2.2 H AST 44 H ALT 21 Alkaline Phosphatase 108 Total Protein 7.4 Albumin 3.1 L Urine Color Urine Appearance Urine pH Ur Specific [place] Urine Protein Urine Glucose (UA) Urine Ketones Urine Blood Urine Nitrite Ur Leukocyte Esterase Urine RBC Urine WBC Ur Squamous Epith Cells Urine Bacteria Hyaline Casts Ur Random Sodium 05/26/23 05/27/23 05/27/23 16:47 05:09 05:09 MCV 101.9 H MCH 33.4 H MCHC 32.8 RDW 14.5 Plt Count 139 L MPV 11.8 Immature Gran % (Auto) 0.2 Neut % (Auto) 57.6 Lymph % (Auto) 28.2 Bennett % (Auto) 10.7 Eos % (Auto) 2.7 Baso % (Auto) 0.6 Lymph # (Auto) 1.9 Bennett # (Auto) 0.7 Eos # (Auto) 0.2 Baso # (Auto) 0.0 Abs Immat Gran (auto) 0.01 Absolute Neuts (auto) 3.8 Absolute Nucleated RBC 0.000 Nucleated RBC % (auto) 0.0 PT INR Anion Gap 15 Estim Creat Clear Calc 30.0 Estimated GFR 23 Random Glucose 104 Calcium 9.4 Total Bilirubin AST ALT Alkaline Phosphatase Total Protein Albumin Urine Color Yellow Urine Appearance Turbid Urine pH 5.5 Ur Specific [place] 1.010 Urine Protein Negative Urine Glucose (UA) Negative Urine Ketones Negative Urine Blood Small (1+) H Urine Nitrite Negative Ur Leukocyte Esterase Large (3+) H Urine RBC 3-5 H Urine WBC 21-50 Ur Squamous Epith Cells 6-10 Urine Bacteria 4+ Hyaline Casts 3-5 Ur Random Sodium 05/27/23 08:12 MCV MCH MCHC RDW Plt Count MPV Immature Gran % (Auto) Neut % (Auto) Lymph % (Auto) Bennett % (Auto) Eos % (Auto) Baso % (Auto) Lymph # (Auto) Bennett # (Auto) Eos # (Auto) Baso # (Auto) Abs Immat Gran (auto) Absolute Neuts (auto) Absolute Nucleated RBC Nucleated RBC % (auto) PT INR Anion Gap Estim Creat Clear Calc Estimated GFR Random Glucose Calcium Total Bilirubin AST ALT Alkaline Phosphatase Total Protein Albumin Urine Color Urine Appearance Urine pH Ur Specific [place] Urine Protein Urine Glucose (UA) Urine Ketones Urine Blood Urine Nitrite Ur Leukocyte Esterase Urine RBC Urine WBC Ur Squamous Epith Cells Urine Bacteria Hyaline Casts Ur Random Sodium < 20.0 Assessment and Plan (1) Hepatorenal syndrome: Status: Acute Plan 73F PMH etoh dependence, chf with recovered EF, HTN, COPD, breast ca, presented with worsening ascites, found to have ION etoh and WILLIAM cirrhosis with ascites s/p paracentesis, follow up labs ION likely due to increased diuretics hold diuretics, given albumin, monitor HTN low bp holding meds COPD continue inhalers as needed uti rocephin follow up cultures dvt prophylaxis - lovenox full code reason for continued hospitalization: ion Time Spent With Patient Time: Total time managing care of this patient today ____ minutes. Quality Stroke Does the patient have a stroke diagnosis?: No VTE Prior VTE?: No VTE Risk Level:: Medical - moderate - high VTE Device Contraindication: Treatment Not Indicated VTE Drug Contraindication: N/A - Med Ordered
[2023-05-27 11:16] LABS: RBC Peritoneal Fluid < 0.002 X10*6/uL
[2023-05-27 11:17] LABS: BF Shift QC OK YES; Lymphocyte Peritoneal Fl 19 %; Man Diluent Bkgrd OK YES; Monocytes Peritoneal Fl 12 %; Neutrophils Peritoneal Fluid 8 %; Other Peritioneal Fl 61 %
[2023-05-27] MEDS: Celecoxib 200 MG CAPSULE PO (12:18)
[2023-05-27] MEDS: Albumin Human 25 % 50 ML 100 ML IV (12:25)
[2023-05-27 15:40] VITALS: BP 116/58; PULSE 84; RESP 18; TEMP 36.5; O2SAT 95
--- NOTE | 2023-05-27 18:08 | PM.PNNEP ---
Subjective Subjective Date of Service: 05/27/23 Interval history: 10mL paracentesis Cr plateaued on NSAIDs in the setting of ATN Physical Exam Vital Signs: Vital Signs: Last Vital Signs Temp 97.7 F 05/27/23 15:40 Pulse 84 05/27/23 15:40 Resp 18 05/27/23 15:40 BP 116/58 L 05/27/23 15:40 Pulse Ox 95 05/27/23 15:40 O2 Del Method Room Air 05/27/23 15:40 BMI result Body Mass Index 35.2 Objective Data Labs 05/27/23 05:09 05/27/23 05:09 Labs: Laboratory Results - last 24 hr 05/27/23 05/27/23 05/27/23 05:09 05:09 08:12 WBC 6.7 RBC 3.11 L Hgb 10.4 L Hct 31.7 L MCV 101.9 H MCH 33.4 H MCHC 32.8 RDW 14.5 Plt Count 139 L MPV 11.8 Immature Gran % (Auto) 0.2 Neut % (Auto) 57.6 Lymph % (Auto) 28.2 [place] % (Auto) 10.7 Eos % (Auto) 2.7 Baso % (Auto) 0.6 Lymph # (Auto) 1.9 [place] # (Auto) 0.7 Eos # (Auto) 0.2 Baso # (Auto) 0.0 Abs Immat Gran (auto) 0.01 Absolute Neuts (auto) 3.8 Absolute Nucleated RBC 0.000 Nucleated RBC % (auto) 0.0 Sodium 142 Potassium 3.4 Chloride 110 H Carbon Dioxide 20 L Anion Gap 15 BUN 39 H Creatinine 2.11 H Estim Creat Clear Calc 30.0 Estimated GFR 23 Random Glucose 104 Calcium 9.4 Ur Random Sodium < 20.0 Peritoneal WBC Peritoneal RBC Periton Neutrophils Periton Lymphocytes Peritoneal Monocytes Peritoneal Other Cells 05/27/23 09:25 WBC RBC Hgb Hct MCV MCH MCHC RDW Plt Count MPV Immature Gran % (Auto) Neut % (Auto) Lymph % (Auto) [place] % (Auto) Eos % (Auto) Baso % (Auto) Lymph # (Auto) [place] # (Auto) Eos # (Auto) Baso # (Auto) Abs Immat Gran (auto) Absolute Neuts (auto) Absolute Nucleated RBC Nucleated RBC % (auto) Sodium Potassium Chloride Carbon Dioxide Anion Gap BUN Creatinine Estim Creat Clear Calc Estimated GFR Random Glucose Calcium Ur Random Sodium Peritoneal WBC 0.275 Peritoneal RBC < 0.002 Periton Neutrophils 8 Periton Lymphocytes 19 Peritoneal Monocytes 12 Peritoneal Other Cells 61 Microbiology Microbiology Results: Microbiology 05/27/23 09:25 Ascites Fluid Gram Stain - Final Procedures Date of Service Date of Service: 05/27/23 Assessment & Plan Time Spent With Patient Time: Total time managing care of this patient today ____ minutes. Progress Note: Quality Stroke Does the patient have a stroke diagnosis?: No
--- NOTE | 2023-05-27 18:10 | P.CONNP_ITS ---
History of Present Illness Reason for Consult Consult date: 05/27/23 Chief Complaint Chief complaint: abdomen swelling History of Present Illness Narrative: Ms. Sherin Butler is a 73-year-old female with a PMH significant for?COPD, HTN, HFpEF, (EF 55-60% on 03/04/2022), IBS, hx of breast cancer, and hx of alcohol use disorder who presents with abdominal swelling and decompensated cirrhosis. .She also had LE edema refractory to escalation of lasix. Reporting drinking up to a half gallon of whiskey or so every 2 days.? Patient's last drink was 12 weeks ago.? She also reports having loose stools earlier this morning.? Patient denies chest pain/pressure, palpitations.? No fever, chills, nausea, vomiting.? In the ED patient was afebrile with slightly soft BP of 110/58. Labs were significant for H&H of 11.4 over 34.7, platelets of 157, PT 16.3, INR 1.3, BUN 40, creatinine 2.03, bilirubin 2.2, AST 44, albumin of 3.1.? UA positive for blood, 3+ leukocyte esterase, wbc's 21-50, epithelial cells 6-10, bacteria 4+.Renal ultrasound yesterday on 05/25/2023 showed unremarkable kidneys with upper abdominal ascites.? Abdominal ultrasound today?showed liver cirrhosis with mild splenomegaly suggestive of developing portal hypertension, new moderate upper abdominal ascites, and thickened gallbladder wall and pericholecystic fluid presumably in the setting of liver disease and ascites rather than primary gallbladder disease. Pt will be admitted to the hospital for treatment and further evaluation of new onset decompensated cirrhosis with ascites. Review of Systems Review of Systems Abdominal swelling Central abdominal pain, radiating to right side Lower leg edema Worsening SOB and exercise tolerance Loose stools since this morning Denies chest pain/pressure, palpitations No fever, chills, nausea, vomiting PMFSH Past Medical History Medical History Annual physical exam Anxiety, generalized Atrial arrhythmia Breast CA (~03/01/23) Cardiac LV ejection fraction of 40-49% Chronic GERD Chronic systolic (congestive) heart failure Colonoscopy refused COPD (chronic obstructive pulmonary disease) Excessive drinking of alcohol Flank pain, chronic History of breast cancer in female Hx of abdominal pain Hx of screening mammography Hypertension, essential Muscle spasm Neuropathy NICM (nonischemic cardiomyopathy) Osteoarthritis Pulmonary nodules Rheumatoid arthritis Vitamin B12 deficiency Vitamin D deficiency Family History Family History Father Non-Hodgkin lymphoma Mother CVD (cardiovascular disease) Brother Lung disease Sister No problems noted. Maternal Grandfather Colon cancer Maternal Grandmother CVD (cardiovascular disease) Paternal Grandfather Unknown family medical history Paternal Grandmother Unknown family medical history Brother No problems noted. Son No problems noted. Son No problems noted. Daughter No problems noted. Other Mental health disorder Substance use disorder Surgical History Surgical History H/O colonoscopy H/O right mastectomy History of section History of esophagogastroduodenoscopy (EGD) History of hysterectomy History of mastectomy History of removal of Port-a-Cath Social History Social History Household Members: None Housing: Apartment Do you presently have visiting nurse or other home services: No Alcohol intake: former Year quit: 2022 Patient Tobacco Use Status: Former Tobacco user Quit Date: 1994 Tobacco use type: Cigarette Years Smoked: 10 e-Cigarette/Vaping Use: Never Used Second Hand Smoke Exposure: No 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 needs: No Hearing needs: No Vision needs: Yes (wears glasses ) Meds Allergies Allergy/AdvReac Type Severity Reaction Status Date / Time hydromorphone [From DILAUDID] Allergy Intermediate hives, Verified 05/26/23 16:00 itching tramadol [From ULTRAM] Allergy Intermediate hives,itchi Verified 05/26/23 16:00 ng losartan Allergy Angioedema Verified 05/26/23 16:00 Active Medications: Current Medications Acetaminophen (Acetaminophen 325 Mg Tablet) 650 mg PO Q6H PRN PRN Reason: Pain, Mild (Pain Scale 1-3) Albuterol Sulfate (Albuterol Sulfate 90 Mcg 8 Gm Inhaler) 1 puff INHALE RQID PRN PRN Reason: for wheezing Aspirin (Aspirin Enteric Coated 81 Mg Tablet.) 81 mg PO DAILY [facility] Last Admin: 05/27/23 07:45 Dose: 81 mg Enoxaparin Sodium (Enoxaparin Sodium 40 Mg/0.4 Ml Syringe) 40 mg SUBCUT Q24H [facility] Last Admin: 05/26/23 21:50 Dose: 40 mg Fluoxetine HCl (Fluoxetine Hcl 20 Mg Capsule) 40 mg PO DAILY [facility] Last Admin: 05/27/23 07:45 Dose: 40 mg Fluticasone/Umeclidinium/Vilanterol (Fluticasone/Umeclidinium/Vilanterol 200/62.5/25 Blst.W.Dev) 1 puff INHALE RDAILY [facility] Last Admin: 05/27/23 11:22 Dose: Not Given Folic Acid (Folic Acid 1 Mg Tablet) 1 mg PO DAILY [facility] Last Admin: 05/27/23 07:45 Dose: 1 mg Gabapentin (Gabapentin 300 Mg Capsule) 300 mg PO BID [facility] Last Admin: 05/27/23 07:46 Dose: 300 mg Ceftriaxone Sodium 1 gm/ (Sodium Chloride) 50 mls @ 100 mls/hr IV Q24H [facility] Last Infusion: 05/27/23 00:30 Dose: Infused Lactulose (Lactulose 20 Gm/30 Ml Solution) 20 gm PO BID [facility] Last Admin: 05/26/23 21:50 Dose: 20 gm Magnesium Oxide (Magnesium Oxide 400 Mg Tablet) 400 mg PO DAILY [facility] Last Admin: 05/27/23 07:45 Dose: 400 mg Melatonin (Melatonin 3 Mg Tablet) 6 mg PO BEDTIME PRN PRN Reason: Insomnia Omeprazole (Omeprazole 20 Mg Capsule.Dr) 20 mg PO DAILY@0630 [facility] Last Admin: 05/27/23 06:51 Dose: 20 mg Ondansetron HCl (Ondansetron Hcl 4 Mg/2 Ml Vial) 4 mg IVPUSH Q8H PRN PRN Reason: Nausea and Vomiting Pharmacy Consult (Consult Rx Perform Med Rec) 1 each MISCELLANE ONCE PRN PRN Reason: Consult order Sodium Chloride (0.9 % Sodium Chloride Flush 3 Ml Syringe) 3 ml IVFLUSH QSHIFT [facility] Last Admin: 05/27/23 17:18 Dose: 3 ml Thiamine HCl (Thiamine Hcl 100 Mg Tablet) 100 mg PO DAILY [facility] Last Admin: 05/27/23 07:46 Dose: 100 mg Home Medications Medication Instructions Recorded Confirmed Last Taken Type aspirin 81 mg tablet,delayed 81 mg PO DAILY 12/18/20 05/26/23 05/26/23 History release cholecalciferol (vitamin D3) 50 50 mcg PO DAILY 12/18/20 05/26/23 05/26/23 History mcg (2,000 unit) capsule vitamin B complex (B 1 tab PO DAILY 07/27/21 05/26/23 05/26/23 History Complex-Vitamin B12 tablet) furosemide 40 mg tablet 40 mg PO DAILY 05/26/23 05/26/23 05/26/23 History omeprazole 20 mg capsule,delayed 20 mg PO DAILY@0630 05/26/23 05/26/23 05/26/23 History release Physical Exam Vital Signs: Last Vital Signs Temp 97.7 F 05/27/23 15:40 Pulse 84 05/27/23 15:40 Resp 18 05/27/23 15:40 BP 116/58 L 05/27/23 15:40 Pulse Ox 95 05/27/23 15:40 O2 Del Method Room Air 05/27/23 15:40 BMI result Body Mass Index 35.2 Const General: healthy appearing and no acute distress Nutritional Appearance: obese Orientation/consciousness: patient oriented x3 Limitations: no limitations HEENT Head: Yes normal to inspection Ears: hearing grossly normal bilaterally Mouth: Normal oral and palatal mucosa present Eyes Sclerae: sclerae normal Pupils: Equal, round and reactive pupils present Neck Neck: Yes normal visual inspection Chest Chest palpation & inspection: normal inspection of the chest Resp Effort & Inspection: normal respiratory effort Auscultation: clear to auscultation bilaterally Cardio Palpation: normal PMI Rate: regular rate Rhythm: regular rhythm Heart sounds: S1 normal heart sound present, S2 normal heart sound present and no murmurs GI Inspection: Yes distended Palpation (GI): Soft to palpation, nontender and No hepatosplenomegaly present Auscultation: normal bowel sounds Rectal Exam - Female: deferred Skin General skin exam: no rashes or lesions noted and spider nevi (on anterior chest) Neuro General: patient oriented x3, gait normal and moves all extremities Cranial nerves: Yes Equal, round and reactive pupils present Extrem General: Yes pedal edema Psych Appearance: grossly normal Mental Status: mental status grossly normal Results Lab Results 05/27/23 05:09 05/27/23 05:09 Lab results: Chemistry 05/26/23 05/27/23 16:41 05:09 Sodium 141 142 Potassium 4.0 3.4 Carbon Dioxide 22 20 L BUN 40 H 39 H Creatinine 2.03 H 2.11 H Calcium 9.7 9.4 Hematology 05/26/23 05/27/23 16:41 05:09 WBC 7.7 6.7 Hgb 11.4 L 10.4 L Plt Count 157 L 139 L Urinalysis 05/26/23 16:47 Urine Color Yellow Urine Appearance Turbid Urine pH 5.5 Ur Specific [place] 1.010 Urine Protein Negative Urine Glucose (UA) Negative Urine Ketones Negative Urine Blood Small (1+) H Urine Nitrite Negative Ur Leukocyte Esterase Large (3+) H Urine RBC 3-5 H Urine WBC 21-50 Ur Squamous Epith Cells 6-10 Hyaline Casts 3-5 Assessment and Plan (1) Hepatorenal syndrome: Status: Acute Plan Ms. Sherin Butler is a 73-year-old female with a PMH significant for?COPD, HTN, HFpEF, (EF 55-60% on 03/04/2022), IBS, hx of breast cancer, and hx of alcohol use disorder who presents with abdominal swelling and decompensated cirrhosis. .She also had LE edema refractory to escalation of lasix. 1. SANDRA BL Cr 1.4mg/dL SANDRA in the setting of decompensated cirrhosis, Hyaline on urine sediment and increasing diuretic doses outpatient. Intravascularly deplete. Poor EFFective circulatory volume with poor intravascular defense leading to reduced renal perfusion. HRS type 1 is possible and on the differential Plan; - for now albumin 100mL q6 hours x4 doses - hold diuresis - hold celebrex! - avoid large volume para - if BP is soft consider octeotride and midodrine Time Spent With Patient Time: Total time managing care of this patient today ____ minutes. Procedures Date of Service Date of Service: 05/27/23
[2023-05-27] MEDS: Albumin Human 25 % 100 ML IV (18:18)
[2023-05-27 19:45] VITALS: BP 127/63; PULSE 82; RESP 18; TEMP 36.2; O2SAT 96
[2023-05-27] MEDS: Enoxaparin Sodium 40 MG/0.4 ML SYRINGE SUBCUT (21:06)
[2023-05-27] MEDS: cefTRIAXone sodium 1 GM in 0.9 % Sodium Chloride 50 ML IV (23:15)
[2023-05-28 05:41] LABS: Hematocrit 30.1 % (37.0-47.0); Hemoglobin 10.1 g/dl (12.0-16.0); Mean Corpuscular HGB Conc 33.6 g/dl (31.0-35.0); Mean Corpuscular Hemoglobin 34.1 pg (27.0-33.0); Mean Corpuscular Volume 101.7 fL (80.0-98.0); Mean Platelet Volume 11.9 fL (9.4-12.3); Platelet Count 124 X10*3/uL (160-400); Red Blood Count 2.96 X10*6/uL (4.20-5.50); Red Cell Distribution Width 14.6 % (11.0-16.0); White Blood Count 6.5 X10*3/uL (4.8-10.8)
[2023-05-28 05:58] LABS: Alanine Aminotransferase 18 U/L (0-31); Alkaline Phosphatase 81 U/L (39-117); Anion Gap 17 (12-20); Aspartate Amino Transferase 37 U/L (5-31); Blood Urea Nitrogen 35 mg/dL (9-16); Calcium 9.5 mg/dL (8.4-10.2); Carbon Dioxide 20 mmol/L (22-29); Chloride 109 mmol/L (96-108); Creatinine Clr Calc Pharmacy 32.8; Estimated Glomerular Filt Rate 26; Glucose Fasting 97 mg/dL (60-99); Potassium 3.6 mmol/L (3.3-5.1); Sodium 142 mmol/L (135-145); Total Protein 6.6 g/dL (6.5-8.0)
[2023-05-28 08:00] VITALS: BP 129/60; PULSE 87; RESP 20; TEMP 36.1; O2SAT 96
[2023-05-28] MEDS: Magnesium Oxide 400 MG TABLET PO (08:55)
[2023-05-28] MEDS: Omeprazole 20 MG CAPSULE.DR PO (08:55)
[2023-05-28] MEDS: Gabapentin 300 MG CAPSULE PO ×2 (08:55→20:29)
[2023-05-28] MEDS: Thiamine HCL 100 MG TABLET PO (08:56)
[2023-05-28] MEDS: 0.9 % Sodium Chloride Flush 3 ML SYRINGE IVFLUSH ×2 (08:56→20:29)
[2023-05-28] MEDS: Folic Acid 1 MG TABLET PO (08:56)
[2023-05-28] MEDS: Aspirin Enteric Coated 81 MG TABLET.DR PO (08:56)
[2023-05-28] MEDS: FLUoxetine HCl 20 MG CAPSULE 40 MG PO (08:56)
--- NOTE | 2023-05-28 10:14 | HO.PM.IMPN ---
Subjective Subjective Date of Service: 05/28/23 Interval History: no new complaints Physical Exam Vital Signs: Vital Signs: Last Vital Signs Temp 97.0 F 05/28/23 08:00 Pulse 87 05/28/23 08:00 Resp 20 05/28/23 08:00 BP 129/60 05/28/23 08:00 Pulse Ox 96 05/28/23 08:00 O2 Del Method Room Air 05/28/23 08:00 BMI result Body Mass Index 35.2 Const: General: healthy appearing and no acute distress Nutritional Appearance: obese Orientation/consciousness: patient oriented x3 Limitations: no limitations HEENT: Head: Yes normal to inspection Ears: hearing grossly normal bilaterally Mouth: Normal oral and palatal mucosa present Eyes: Sclerae: sclerae normal Pupils: Equal, round and reactive pupils present Neck: Neck: Yes normal visual inspection Chest: Chest palpation & inspection: normal inspection of the chest Resp: Effort & Inspection: normal respiratory effort Auscultation: clear to auscultation bilaterally Cardio: Palpation: normal PMI Rate: regular rate Rhythm: regular rhythm Heart sounds: S1 normal heart sound present, S2 normal heart sound present and no murmurs GI: Inspection: Yes distended Palpation (GI): Soft to palpation, nontender and No hepatosplenomegaly present Auscultation: normal bowel sounds Rectal Exam - Female: deferred Skin: General skin exam: no rashes or lesions noted and spider nevi (on anterior chest) Neuro: General: patient oriented x3, gait normal and moves all extremities Cranial nerves: Yes Equal, round and reactive pupils present Extrem: General: Yes pedal edema Psych: Appearance: grossly normal Mental Status: mental status grossly normal Objective Data Active Medications Acetaminophen (Acetaminophen 325 Mg Tablet) 650 mg PO Q6H PRN PRN Reason: Pain, Mild (Pain Scale 1-3) Albuterol Sulfate (Albuterol Sulfate 90 Mcg 8 Gm Inhaler) 1 puff INHALE RQID PRN PRN Reason: for wheezing Aspirin (Aspirin Enteric Coated 81 Mg Tablet.) 81 mg PO DAILY [facility] Last Admin: 05/28/23 08:56 Dose: 81 mg Documented By: ANGELINE Enoxaparin Sodium (Enoxaparin Sodium 40 Mg/0.4 Ml Syringe) 40 mg SUBCUT Q24H [facility] Last Admin: 05/27/23 21:06 Dose: 40 mg Documented By: TERRA Fluoxetine HCl (Fluoxetine Hcl 20 Mg Capsule) 40 mg PO DAILY [facility] Last Admin: 05/28/23 08:56 Dose: 40 mg Documented By: ANGELINE Fluticasone/Umeclidinium/Vilanterol (Fluticasone/Umeclidinium/Vilanterol 200/62.5/25 Blst.W.Dev) 1 puff INHALE RDAILY [facility] Last Admin: 05/28/23 08:37 Dose: Not Given Documented By: NANNETTE Non-Admin Reason: med not available, pharmacy called. Folic Acid (Folic Acid 1 Mg Tablet) 1 mg PO DAILY [facility] Last Admin: 05/28/23 08:56 Dose: 1 mg Documented By: ANGELINE Gabapentin (Gabapentin 300 Mg Capsule) 300 mg PO BID [facility] Last Admin: 05/28/23 08:55 Dose: 300 mg Documented By: ANGELINE Ceftriaxone Sodium 1 gm/ (Sodium Chloride) 50 mls @ 100 mls/hr IV Q24H [facility] Last Infusion: 05/27/23 23:57 Dose: 0 mls/hr Documented By: TERRA Lactulose (Lactulose 20 Gm/30 Ml Solution) 20 gm PO BID [facility] Last Admin: 05/26/23 21:50 Dose: 20 gm Documented By: MILLY Magnesium Oxide (Magnesium Oxide 400 Mg Tablet) 400 mg PO DAILY [facility] Last Admin: 05/28/23 08:55 Dose: 400 mg Documented By: ANGELINE Melatonin (Melatonin 3 Mg Tablet) 6 mg PO BEDTIME PRN PRN Reason: Insomnia Omeprazole (Omeprazole 20 Mg Jose Roberto.) 20 mg PO DAILY@0630 [facility] Last Admin: 05/28/23 08:55 Dose: 20 mg Documented By: ANGELINE Ondansetron HCl (Ondansetron Hcl 4 Mg/2 Ml Vial) 4 mg IVPUSH Q8H PRN PRN Reason: Nausea and Vomiting Pharmacy Consult (Consult Rx Perform Med Rec) 1 each MISCELLANE ONCE PRN PRN Reason: Consult order Sodium Chloride (0.9 % Sodium Chloride Flush 3 Ml Syringe) 3 ml IVFLUSH QSHIFT [facility] Last Admin: 05/28/23 08:56 Dose: 3 ml Documented By: ANGELINE Thiamine HCl (Thiamine Hcl 100 Mg Tablet) 100 mg PO DAILY [facility] Last Admin: 05/28/23 08:56 Dose: 100 mg Documented By: ANGELINE Labs 05/28/23 05:06 05/28/23 05:06 Labs: Laboratory Results - last 24 hr 05/27/23 05/28/23 05/28/23 09:25 05:06 05:06 MCV 101.7 H MCH 34.1 H MCHC 33.6 RDW 14.6 Plt Count 124 L MPV 11.9 Absolute Nucleated RBC 0.000 Nucleated RBC % (auto) 0.0 Anion Gap 17 Estim Creat Clear Calc 32.8 Estimated GFR 26 Fasting Glucose 97 Calcium 9.5 Total Bilirubin 2.0 H Direct Bilirubin 1.0 H AST 37 H ALT 18 Alkaline Phosphatase 81 Total Protein 6.6 Albumin 3.0 L Peritoneal WBC 0.275 Peritoneal RBC < 0.002 Periton Neutrophils 8 Periton Lymphocytes 19 Peritoneal Monocytes 12 Peritoneal Other Cells 61 Microbiology Microbiology Results: Microbiology 05/26/23 23:34 Blood Culture - Preliminary Blood - Venous No growth after 24 hours. 05/26/23 23:34 Blood Culture - Preliminary Blood - Venous No growth after 24 hours. 05/27/23 09:25 Gram Stain - Final Ascites Fluid Assessment and Plan (1) Hepatorenal syndrome: Status: Acute Plan 73F PMH etoh dependence, chf with recovered EF, HTN, COPD, breast ca, presented with worsening ascites, found to have SANDRA etoh and WILLIAM cirrhosis with ascites s/p paracentesis, no evidence of SBP SANDRA likely due to increased diuretics hold diuretics, giving albumin, monitor nephro following HTN low bp holding meds COPD continue inhalers as needed uti rocephin follow up cultures dvt prophylaxis - lovenox full code reason for continued hospitalization: sandra Time Spent With Patient Time: Total time managing care of this patient today ____ minutes. Quality Stroke Does the patient have a stroke diagnosis?: No VTE Prior VTE?: No VTE Risk Level:: Medical - moderate - high VTE Device Contraindication: Treatment Not Indicated VTE Drug Contraindication: N/A - Med Ordered
--- NOTE | 2023-05-28 11:02 | PM.GIPN ---
Subjective Subjective Date of Service: 05/28/23 Interval History: Pt seen and evaluated at bedside. Admitted for SANDRA/HRS in the setting of decompensated cirrhosis, worsening ascites and escalating diuretic dosing. Reports no abd pain, N,V. Abd distention a bit bothersome, but breathing comfortably on room air, and does not get worse on laying down. Diagnostic para does not show evidence of SBP. SAAG labs pending. Cr improved today. Critical Care Time (minutes): 0 Physical Exam Vital Signs: Vital Signs: Last Vital Signs Temp 97.0 F 05/28/23 08:00 Pulse 87 05/28/23 08:00 Resp 20 05/28/23 08:00 BP 129/60 05/28/23 08:00 Pulse Ox 96 05/28/23 08:00 O2 Del Method Room Air 05/28/23 08:00 BMI result Body Mass Index 35.2 Gen appear: elderly female NAD HEENT: No icterus appreciated clinically Abd: soft, distended, positive fluid thrill Objective Data Labs 05/28/23 05:06 05/28/23 05:06 Labs: Laboratory Results - last 24 hr 05/27/23 05/28/23 05/28/23 09:25 05:06 05:06 WBC 6.5 RBC 2.96 L Hgb 10.1 L Hct 30.1 L MCV 101.7 H MCH 34.1 H MCHC 33.6 RDW 14.6 Plt Count 124 L MPV 11.9 Absolute Nucleated RBC 0.000 Nucleated RBC % (auto) 0.0 Sodium 142 Potassium 3.6 Chloride 109 H Carbon Dioxide 20 L Anion Gap 17 BUN 35 H Creatinine 1.93 H Estim Creat Clear Calc 32.8 Estimated GFR 26 Fasting Glucose 97 Calcium 9.5 Total Bilirubin 2.0 H Direct Bilirubin 1.0 H AST 37 H ALT 18 Alkaline Phosphatase 81 Total Protein 6.6 Albumin 3.0 L Peritoneal WBC 0.275 Peritoneal RBC < 0.002 Periton Neutrophils 8 Periton Lymphocytes 19 Peritoneal Monocytes 12 Peritoneal Other Cells 61 Microbiology Microbiology Results: Microbiology 05/26/23 23:34 Blood - Venous Blood Culture - Preliminary No growth after 24 hours. 05/26/23 23:34 Blood - Venous Blood Culture - Preliminary No growth after 24 hours. 05/27/23 09:25 Ascites Fluid Gram Stain - Final Procedures Date of Service Date of Service: 05/28/23 Progress Note: A&P Assessment and plan (1) Hepatorenal syndrome: Status: Acute (2) Ascites: Status: Acute (3) SANDRA (acute kidney injury): Status: Acute (4) Liver cirrhosis: Status: Acute Plan - Decomp etOH assoc cirrhosis - MELD-Na 18, Child Tracey Class B - SANDRA/HRS Promising response to albumin challenge so far. - Cont albumin 25% 100mg/day in divided doses - Avoid NSAIDs, ACEi/ARBs - No large volume jerson - IF ascites worsens to the point of discomfort/shortness of breath, can consider a small volume (2-3L) para at that time. Will need to be supplemented with albumin 25% 8g/l removed. - If Cr plateaus tmrw, will check with renal re utility of adding midodrine and octreotide Time Spent With Patient Time: Total time managing care of this patient today ____ minutes. Quality Stroke Does the patient have a stroke diagnosis?: No VTE Prior VTE?: No VTE Risk Level:: Medical - moderate - high VTE Device Contraindication: Treatment Not Indicated VTE Drug Contraindication: N/A - Med Ordered
[2023-05-28] MEDS: Albumin Human 25 % 100 ML IV ×2 (11:24→12:32)
--- NOTE | 2023-05-28 15:01 | PM.PNNEP ---
Subjective Subjective Date of Service: 05/28/23 Interval history: hyaline on urine sediment unlikely HRS Cr better slightly Physical Exam Vital Signs: Vital Signs: Last Vital Signs Temp 97.0 F 05/28/23 08:00 Pulse 87 05/28/23 08:00 Resp 20 05/28/23 08:00 BP 129/60 05/28/23 08:00 Pulse Ox 96 05/28/23 08:00 O2 Del Method Room Air 05/28/23 08:00 BMI result Body Mass Index 35.2 Const: General: healthy appearing and no acute distress Nutritional Appearance: obese Orientation/consciousness: patient oriented x3 Limitations: no limitations HEENT: Head: Yes normal to inspection Ears: hearing grossly normal bilaterally Mouth: Normal oral and palatal mucosa present Eyes: Sclerae: sclerae normal Pupils: Equal, round and reactive pupils present Neck: Neck: Yes normal visual inspection Chest: Chest palpation & inspection: normal inspection of the chest Resp: Effort & Inspection: normal respiratory effort Auscultation: clear to auscultation bilaterally Cardio: Palpation: normal PMI Rate: regular rate Rhythm: regular rhythm Heart sounds: S1 normal heart sound present, S2 normal heart sound present and no murmurs GI: Inspection: Yes distended Palpation (GI): Soft to palpation, nontender and No hepatosplenomegaly present Auscultation: normal bowel sounds Rectal Exam - Female: deferred Skin: General skin exam: no rashes or lesions noted and spider nevi (on anterior chest) Neuro: General: patient oriented x3, gait normal and moves all extremities Cranial nerves: Yes Equal, round and reactive pupils present Extrem: General: Yes pedal edema Objective Data Labs 05/28/23 05:06 05/28/23 05:06 Labs: Laboratory Results - last 24 hr 05/28/23 05/28/23 05:06 05:06 WBC 6.5 RBC 2.96 L Hgb 10.1 L Hct 30.1 L MCV 101.7 H MCH 34.1 H MCHC 33.6 RDW 14.6 Plt Count 124 L MPV 11.9 Absolute Nucleated RBC 0.000 Nucleated RBC % (auto) 0.0 Sodium 142 Potassium 3.6 Chloride 109 H Carbon Dioxide 20 L Anion Gap 17 BUN 35 H Creatinine 1.93 H Estim Creat Clear Calc 32.8 Estimated GFR 26 Fasting Glucose 97 Calcium 9.5 Total Bilirubin 2.0 H Direct Bilirubin 1.0 H AST 37 H ALT 18 Alkaline Phosphatase 81 Total Protein 6.6 Albumin 3.0 L Microbiology Microbiology Results: Microbiology 05/27/23 09:25 Ascites Fluid Gram Stain - Final 05/27/23 09:25 Ascites Fluid Anaerobic Culture - Preliminary No growth to date. 05/27/23 09:25 Ascites Fluid Body Fluid Culture - Preliminary No growth to date. 05/26/23 23:34 Blood - Venous Blood Culture - Preliminary No growth after 24 hours. 05/26/23 23:34 Blood - Venous Blood Culture - Preliminary No growth after 24 hours. Procedures Date of Service Date of Service: 05/28/23 Assessment & Plan Assessment and plan (1) Hepatorenal syndrome: Status: Acute Plan Ms. Sherin Butler is a 73-year-old female with a PMH significant for?COPD, HTN, HFpEF, (EF 55-60% on 03/04/2022), IBS, hx of breast cancer, and hx of alcohol use disorder who presents with abdominal swelling and decompensated cirrhosis. .She also had LE edema refractory to escalation of lasix. 1. SANDRA BL Cr 1.4mg/dL SANDRA in the setting of decompensated cirrhosis, Hyaline on urine sediment and increasing diuretic doses outpatient. Intravascularly deplete. Poor EFFective circulatory volume with poor intravascular defense leading to reduced renal perfusion. HRS type 1 is possible and on the differential Plan; - for now albumin 100mL q6 hours x4 doses again today - hold diuresis - hold celebrex! (Stopped 05/27/23) - avoid large volume para - no need for octeotride and midodrine Time Spent With Patient Time: Total time managing care of this patient today ____ minutes. Progress Note: Quality Stroke Does the patient have a stroke diagnosis?: No
--- NOTE | 2023-05-28 15:55 | MHC.CM.PN ---
CM MET WITH PT WHO PROVIDED THE FOLLOWING INFORMATION: PT LIVES ALONE SHE IS INDEPENDENT WITH CARE DOES NOT USE DME HAS NO SERVICES DOES NOT HAVE A HCP, ACCEPTED THE INFO/DOCUMENT PCP: DELILAH GAMEZ IMM DELIVERED DCP: HOME NO SERVICES VIA [facility] [place] [facility]
[2023-05-28 16:03] VITALS: BP 120/60; PULSE 86; RESP 20; TEMP 36.6; O2SAT 95
[2023-05-28 19:14] VITALS: BP 121/69; PULSE 92; RESP 24; TEMP 36.2; O2SAT 97
[2023-05-28] MEDS: Enoxaparin Sodium 40 MG/0.4 ML SYRINGE SUBCUT (20:29)
[2023-05-28] MEDS: cefTRIAXone sodium 1 GM in 0.9 % Sodium Chloride 50 ML IV (22:27)
[2023-05-29 03:17] VITALS: BP 117/60; PULSE 91; RESP 20; TEMP 36.7; O2SAT 96
[2023-05-29] MEDS: Omeprazole 20 MG CAPSULE.DR PO (05:36)
[2023-05-29 05:47] LABS: Hematocrit 28.8 % (37.0-47.0); Hemoglobin 9.5 g/dl (12.0-16.0); Mean Corpuscular Hemoglobin 34.2 pg (27.0-33.0); Mean Corpuscular Volume 103.6 fL (80.0-98.0); Platelet Count 107 X10*3/uL (160-400); Red Blood Count 2.78 X10*6/uL (4.20-5.50); Red Cell Distribution Width 14.5 % (11.0-16.0); White Blood Count 6.7 X10*3/uL (4.8-10.8)
[2023-05-29 05:59] LABS: Anion Gap 17 (12-20); Blood Urea Nitrogen 31 mg/dL (9-16); Calcium 9.5 mg/dL (8.4-10.2); Carbon Dioxide 19 mmol/L (22-29); Chloride 109 mmol/L (96-108); Creatinine Clr Calc Pharmacy 40.3; Estimated Glomerular Filt Rate 32; Glucose Fasting 105 mg/dL (60-99); Potassium 3.6 mmol/L (3.3-5.1); Sodium 141 mmol/L (135-145)
[2023-05-29 08:00] VITALS: BP 129/57; PULSE 93; RESP 20; TEMP 37.2; O2SAT 96
--- NOTE | 2023-05-29 08:46 | PM.DS ---
DS: Providers Provider Date of Service: 05/29/23 Date of admission: 05/26/23 21:40 Primary care physician: Adele Knight MD Consults: 05/26/23 21:40 Consult to Gastroenterology Routine Consulting Provider: Calos Rosado Reason for consultation: new onset cirrhosis Consult to Nephrology Routine Consulting Provider: Prashant Nails Reason for consultation: Sandra vs CKD DS: Diagnosis Discharge Diagnosis (1) Hepatorenal syndrome: Status: Acute (2) Ascites: Status: Acute (3) SANDRA (acute kidney injury): Status: Acute (4) Liver cirrhosis: Status: Acute DS: Summary Hospital Course Hospital Course: from initial hpi: 73-year-old female with a PMH significant for COPD, HTN, HFpEF, (EF 55-60% on 03/04/2022), IBS, hx of breast cancer, and hx of alcohol use disorder who presents to the ED with increased lower leg edema and abdominal swelling. Patient states that her symptoms began a few weeks ago she noticed increasing lower leg edema that started in her ankles and began creeping up her legs. Despite increasing her furosemide from 20 mg to 40 mg daily and then 40 mg b.i.d. and wearing compression stockings, patient's symptoms did not improve. She also noticed increasing abdominal swelling and eventual mild 3/10 abdominal pain that is mostly centrally located but radiates to her right side. Patient is also been experiencing increased shortness of breath and exercise intolerance. Patient has long history of heavy alcohol use, reporting drinking up to a half gallon of whiskey or so every 2 days. Patient's last drink was 12 weeks ago. She also reports having loose stools earlier this morning. Patient denies chest pain/pressure, palpitations. No fever, chills, nausea, vomiting. In the ED patient was afebrile with slightly soft BP of 110/58. Labs were significant for H&H of 11.4 over 34.7, platelets of 157, PT 16.3, INR 1.3, BUN 40, creatinine 2.03, bilirubin 2.2, AST 44, albumin of 3.1. UA positive for blood, 3+ leukocyte esterase, wbc's 21-50, epithelial cells 6-10, bacteria 4+.Renal ultrasound yesterday on 05/25/2023 showed unremarkable kidneys with upper abdominal ascites. Abdominal ultrasound today showed liver cirrhosis with mild splenomegaly suggestive of developing portal hypertension, new moderate upper abdominal ascites, and thickened gallbladder wall and pericholecystic fluid presumably in the setting of liver disease and ascites rather than primary gallbladder disease. Pt will be admitted to the hospital for treatment and further evaluation of new onset decompensated cirrhosis with ascites. hospital course: patient was admitted for etoh and WILLIAM cirrhosis with ascites. underwent paracentesis (10cc) negative for SBP. also had SANDRA on admission. likely due to dehydration, diuretics were held, given iv albumin, celebrex held, creatinine improved from 2.11 to 1.5, will continue to hold lasix and monitor as outpatient. for htn, amlodipine held for low-normal bps. for copd inhalers used as needed. for ecoli uti treated with rocephin, will have 2 more days of ceftin as outpatient. patient feeling better, will be didscharged home. Time Spent with Patient Time attestation: Total time managing care of this patient today ____ minutes. Discharge coordination time: Greater than 30 minutes Quality: Safe Use of Opioids Does Pt have an Active Cancer Diagnosis on the Problem List?: No Quality: Stroke Does the patient have a stroke diagnosis?: No Physical Exam Vital Signs: Vital Signs: Last Vital Signs Temp 98.9 F 05/29/23 08:00 Pulse 93 05/29/23 08:00 Resp 20 05/29/23 08:00 BP 129/57 L 05/29/23 08:00 Pulse Ox 96 05/29/23 08:00 O2 Del Method Room Air 05/29/23 08:00 BMI result Body Mass Index 35.2 General: AO X 3, no acute distress Resp: CTA bilateral, no accessory muscles used CVS: S1,S2,RRR GI: soft, non tender, non distended Neuro: motor grossly intact, alert Psych: appropriate affect, appropriate insight DS: Data Data Completed and Pending Labs on day of discharge: Laboratory Results - last 24 hr 05/29/23 05/29/23 05:35 05:35 WBC 6.7 RBC 2.78 L Hgb 9.5 L Hct 28.8 L MCV 103.6 H MCH 34.2 H MCHC 33.0 RDW 14.5 Plt Count 107 L MPV 12.0 Absolute Nucleated RBC 0.000 Nucleated RBC % (auto) 0.0 Sodium 141 Potassium 3.6 Chloride 109 H Carbon Dioxide 19 L Anion Gap 17 BUN 31 H Creatinine 1.57 H Estim Creat Clear Calc 40.3 Estimated GFR 32 Fasting Glucose 105 H Calcium 9.5 Preliminary micro results at discharge 05/26/23 23:34 Blood Culture - Preliminary Blood - Venous No growth after 48 hours. 05/26/23 23:34 Blood Culture - Preliminary Blood - Venous No growth after 48 hours. 05/27/23 09:25 Anaerobic Culture - Preliminary Ascites Fluid No growth to date. Body Fluid Culture - Preliminary No growth to date. Discharge Plan Discharge Anticipated Discharge Date/Time: 05/29/23 08:40 Patient Disposition: Home, Self-Care Discharge Diagnosis: sandra Referrals: Adele Knight MD [Primary Care Provider] - 1 Week Calos Rosado MD [Physician] - 1 Week Discharge Medications: New cefuroxime axetil 500 mg tablet 500 mg PO BID Qty: 4 0RF Continued fluoxetine 40 mg capsule 40 mg PO DAILY Qty: 90 3RF metoprolol succinate 25 mg tablet extended release 24 hr 25 mg PO DAILY Qty: 90 3RF albuterol sulfate 90 mcg/actuation HFA aerosol inhaler 1 puff inhalation QID PRN (Reason: for wheezing) Qty: 17 4RF magnesium oxide 400 mg (241.3 mg magnesium) tablet 400 mg PO DAILY Qty: 30 1RF omeprazole 20 mg capsule,delayed release(DR/EC) 20 mg PO DAILY@0630 Trelegy Ellipta 200-62.5-25 mcg blister with device 1 inh inhalation DAILY 30 Days Qty: 60 12RF gabapentin 300 mg capsule 300 mg PO BID Qty: 180 1RF aspirin 81 mg tablet,delayed release (DR/EC) 81 mg PO DAILY cholecalciferol (vitamin D3) 50 mcg (2,000 unit) capsule 50 mcg PO DAILY vitamin B complex [B Complex-Vitamin B12] Tablet 1 tab PO DAILY Discontinued amlodipine 5 mg tablet 5 mg PO DAILY Qty: 90 3RF celecoxib 200 mg capsule 200 mg PO DAILY Qty: 90 3RF nitrofurantoin monohyd/m-cryst [Macrobid] 100 mg capsule 100 mg PO Q12H 7 Days Qty: 14 0RF Rx Instructions: must administer with a meal/food furosemide 40 mg tablet 40 mg PO DAILY Discharge Orders: Discharge Order (Routine); Ordered 05/29/23 Ordered By: Patrick Tovar Diet: Advance to usual diet Activity on Discharge: As tolerated Stand Alone Forms: Patient Portal Discharge page Care Plan Goals: manage cirrhosis, sandra Health Concerns: cirrhosis, sandra Plan of Treatment: stop amlodipine, monitor blood pressures, follow up with pcp and GI Assessment: see above
--- NOTE | 2023-05-29 08:57 | MHC.CM.PN ---
pt dcd home no servceis
[2023-05-29] MEDS: 0.9 % Sodium Chloride Flush 3 ML SYRINGE IVFLUSH (10:06)
[2023-05-29] MEDS: Thiamine HCL 100 MG TABLET PO (10:06)
[2023-05-29] MEDS: Gabapentin 300 MG CAPSULE PO (10:07)
[2023-05-29] MEDS: FLUoxetine HCl 20 MG CAPSULE 40 MG PO (10:07)
[2023-05-29] MEDS: Folic Acid 1 MG TABLET PO (10:07)
[2023-05-29] MEDS: Aspirin Enteric Coated 81 MG TABLET.DR PO (10:07)
[2023-05-29] MEDS: Magnesium Oxide 400 MG TABLET PO (10:07)
--- NOTE | 2023-05-29 12:08 | PM.PNNEP ---
Subjective Subjective Date of Service: 05/29/23 Interval history: Doing well GFr improving Diagnostic para does not show evidence of SBP. Physical Exam Vital Signs: Vital Signs: Last Vital Signs Temp 98.9 F 05/29/23 08:00 Pulse 93 05/29/23 08:00 Resp 20 05/29/23 08:00 BP 129/57 L 05/29/23 08:00 Pulse Ox 96 05/29/23 08:00 O2 Del Method Room Air 05/29/23 08:00 BMI result Body Mass Index 35.2 Const: General: healthy appearing and no acute distress Nutritional Appearance: obese Orientation/consciousness: patient oriented x3 Limitations: no limitations Resp: Effort & Inspection: normal respiratory effort Auscultation: clear to auscultation bilaterally Cardio: Palpation: normal PMI Rate: regular rate Rhythm: regular rhythm Heart sounds: S1 normal heart sound present, S2 normal heart sound present and no murmurs GI: Inspection: Yes distended Palpation (GI): Soft to palpation, nontender and No hepatosplenomegaly present Auscultation: normal bowel sounds Rectal Exam - Female: deferred Neuro: General: patient oriented x3, gait normal and moves all extremities Extrem: General: Yes pedal edema Objective Data Labs 05/29/23 05:35 05/29/23 05:35 Labs: Laboratory Results - last 24 hr 05/29/23 05/29/23 05:35 05:35 WBC 6.7 RBC 2.78 L Hgb 9.5 L Hct 28.8 L MCV 103.6 H MCH 34.2 H MCHC 33.0 RDW 14.5 Plt Count 107 L MPV 12.0 Absolute Nucleated RBC 0.000 Nucleated RBC % (auto) 0.0 Sodium 141 Potassium 3.6 Chloride 109 H Carbon Dioxide 19 L Anion Gap 17 BUN 31 H Creatinine 1.57 H Estim Creat Clear Calc 40.3 Estimated GFR 32 Fasting Glucose 105 H Calcium 9.5 Microbiology Microbiology Results: Microbiology 05/27/23 09:25 Ascites Fluid Gram Stain - Final 05/27/23 09:25 Ascites Fluid Anaerobic Culture - Preliminary Culture in progress. 05/27/23 09:25 Ascites Fluid Body Fluid Culture - Preliminary Culture in progress. 05/26/23 23:34 Blood - Venous Blood Culture - Preliminary No growth after 48 hours. 05/26/23 23:34 Blood - Venous Blood Culture - Preliminary No growth after 48 hours. Procedures Date of Service Date of Service: 05/29/23 Assessment & Plan Assessment and plan (1) Hepatorenal syndrome: Status: Acute Plan Ms. Sherin Butler is a 73-year-old female with a PMH significant for?COPD, HTN, HFpEF, (EF 55-60% on 03/04/2022), IBS, hx of breast cancer, and hx of alcohol use disorder who presents with abdominal swelling and decompensated cirrhosis. .She also had LE edema refractory to escalation of lasix. 1. SANDRA BL Cr 1.4mg/dL SANDRA in the setting of decompensated cirrhosis, Hyaline on urine sediment and increasing diuretic doses outpatient. Intravascularly deplete. Poor EFFective circulatory volume with poor intravascular defense leading to reduced renal perfusion. HRS type 1 is possible and on the differential but unlikely. Plan; - c/w albumin support today. - hold diuresis - hold celebrex! (Stopped 05/27/23) - avoid large volume para - no need for octeotride and midodrine Time Spent With Patient Time: Total time managing care of this patient today ____ minutes. Progress Note: Quality Stroke Does the patient have a stroke diagnosis?: No
[2023-06-03 12:58] LABS: pH Peritoneal Fluid 7.7
[2023-06-03 13:11] LABS: Albumin Peritoneal Fluid 0.7 GM/DL; Glucose Peritoneal Fluid 131 MG/DL; LDH Peritoneal Fluid 68 U/L; Total Protein Peritoneal Fluid 1.2 GM/DL
== END 2023-05-29 13:35 | disposition home or self-care (01) | DRG 432 ==
LOC: HO.ED 20:12 → HO.EDOVER 21:53 → HO.S3 05-27 10:25
PROVIDERS: Internal Medicine Gastroenterology; Radiology Diagnostic Radiology; Registered Nurse Emergency; Admitting Provider Student in an Organized Health Care Education/Training Program; Emergency Provider Emergency Medicine; PCP Internal Medicine; Visit Provider Internal Medicine
PROC: 0W9G3ZZ Drainage of Peritoneal Cavity, Percutaneous Approach (ICD-10-PCS; principal; 2023-05-27 09:30)
DX: K70.31 Alcoholic cirrhosis of liver with ascites (principal); K76.7 Hepatorenal syndrome; N17.9 Acute kidney failure, unspecified; N39.0 Urinary tract infection, site not specified; K76.6 Portal hypertension; I12.9 Hypertensive chronic kidney disease with stage 1 through stage 4 chronic kidney disease, or unspecified chronic kidney disease; N18.30 Chronic kidney disease, stage 3 unspecified; F41.1 Generalized anxiety disorder; K21.9 Gastro-esophageal reflux disease without esophagitis; F10.11 Alcohol abuse, in remission; J44.9 Chronic obstructive pulmonary disease, unspecified; K75.81 Nonalcoholic steatohepatitis (NASH); E86.0 Dehydration; B96.20 Unspecified Escherichia coli [E. coli] as the cause of diseases classified elsewhere; M06.9 Rheumatoid arthritis, unspecified; Z90.11 Acquired absence of right breast and nipple; Z85.3 Personal history of malignant neoplasm of breast; Z87.891 Personal history of nicotine dependence; Z79.82 Long term (current) use of aspirin; Z79.899 Other long term (current) drug therapy
CPT/HCPCS: 36415; 49083; 80048; 80053; 80076; 81001; 81003; 82042; 82945; 83615; 83986; 84157; 84300; 85025; 85027; 85610; 87040; 87070; 87073; 87205; 88112; 88305; 89051; 99285; J0696; J1650; P9047

== ENCOUNTER 2023-05-26 21:40 | Outpatient (BNV) | payer MEDICARE, SELFPAY | END 2023-05-27 08:40 | PROVIDERS: Admitting Provider Student in an Organized Health Care Education/Training Program; Emergency Provider Emergency Medicine; PCP Internal Medicine; Visit Provider Radiology Diagnostic Radiology | DX: R10.9 Unspecified abdominal pain (principal) | CPT/HCPCS: 49083 ==

== ENCOUNTER → 2023-05-26 21:40 | Outpatient (BNV) | payer MEDICARE, SELFPAY | PROVIDERS: Admitting Provider Student in an Organized Health Care Education/Training Program; Emergency Provider Emergency Medicine; PCP Internal Medicine; Visit Provider Internal Medicine Gastroenterology | DX: R18.8 Other ascites (principal); K74.60 Unspecified cirrhosis of liver | CPT/HCPCS: 99222 ==

== ENCOUNTER → 2023-05-26 21:40 | Outpatient (BNV) | payer MEDICARE, SELFPAY | PROVIDERS: Admitting Provider Student in an Organized Health Care Education/Training Program; Emergency Provider Emergency Medicine; PCP Internal Medicine; Visit Provider Student in an Organized Health Care Education/Training Program | DX: K76.7 Hepatorenal syndrome (principal); R18.8 Other ascites; N17.9 Acute kidney failure, unspecified; K74.60 Unspecified cirrhosis of liver | CPT/HCPCS: 99222; 99232; 99239 ==

== ENCOUNTER → 2023-05-26 21:40 | Outpatient (BNV) | payer MEDICARE, SELFPAY | PROVIDERS: Admitting Provider Student in an Organized Health Care Education/Training Program; Emergency Provider Emergency Medicine; PCP Internal Medicine; Visit Provider Internal Medicine | DX: K76.7 Hepatorenal syndrome (principal); R18.8 Other ascites; N17.9 Acute kidney failure, unspecified; K74.60 Unspecified cirrhosis of liver | CPT/HCPCS: 99232 ==

== ENCOUNTER 2023-05-30 14:07 | Outpatient (AMB) | payer MEDICARE, SELFPAY ==
[2023-05-30 14:15] VITALS: BP 110/66; PULSE 94; O2SAT 97; BMI 35.2
--- NOTE | 2023-05-30 14:15 | MHC.PC.OV ---
Vital Signs 05/30/23 14:15 Height 5 ft 7 in Weight 225 lb BMI 35.2 BP 110/66 Blood Pressure Location Lt brachial Position Sitting Pulse 94 Pulse Source Pulse Oximeter Pulse Oximetry (%) 97 Oxygen Delivery Method Room Air Intake Visit Reasons: Hospital follow up. Intake Note: Pt is here today for Hospital follow up visit. Pt was discharged from [facility] [place]. Allergies hydromorphone [From DILAUDID] Allergy (Intermediate, Verified 05/30/23 14:21) hives, itching tramadol [From ULTRAM] Allergy (Intermediate, Verified 05/30/23 14:21) hives,itching losartan Allergy (Verified 05/30/23 14:21) Angioedema Medication List - Last Reconciled 05/30/23 by Adele Knight MD albuterol sulfate 90 mcg/actuation 1 puff inhalation QID PRN aspirin 81 mg PO DAILY cefuroxime axetil 500 mg PO BID cholecalciferol (vitamin D3) 50 mcg PO DAILY fluoxetine 40 mg PO DAILY jlsvdzhtfuh-nnhwmnuls-dairpavy 200-62.5-25 mcg (Trelegy Ellipta) 1 inh inhalation DAILY 30 days gabapentin 300 mg PO BID magnesium oxide 400 mg PO DAILY metoprolol succinate ER 25 mg PO DAILY omeprazole 20 mg PO DAILY@0630 vitamin B complex (B Complex-Vitamin B12 tablet) 1 tab PO DAILY Tobacco use date assessed: 03/01/23 Fall risk assessment: No Falls in past year Last assessed Fall Risk: 05/30/23 Dental Screening Dental Screen Date: 05/30/23 Did you have a dental visit in the last 12 months?: Yes Did you have a dental problem in the last 6 months where you did not have access to dental care?: No Was dental information given to patient?: Patient has dentist [facility] Hospital follow up. HPI Details Patient presents for the follow-up of hospitalization for new onset ascites and acute kidney failure. Paracentesis was negative for SBP and patient was discharged home on cefuroxime for UTI. Renal function improved slightly since furosemide was discontinued during hospitalization. Patient reports persistent abdominal distension and discomfort , decreased appetite and lower extremity swelling. She reports slight worsening of dyspnea on exertion but denies cough, chest pain or palpitations. She has been using Trelegy for COPD. Patient has an appointment with lump inspector tomorrow. PFSH Medical History Annual physical exam Anxiety, generalized Atrial arrhythmia Breast CA (~03/01/23) Cardiac LV ejection fraction of 40-49% Chronic GERD Chronic systolic (congestive) heart failure Colonoscopy refused COPD (chronic obstructive pulmonary disease) Excessive drinking of alcohol Flank pain, chronic History of breast cancer in female Hx of abdominal pain Hx of screening mammography Hypertension, essential Muscle spasm Neuropathy NICM (nonischemic cardiomyopathy) Osteoarthritis Pulmonary nodules Rheumatoid arthritis Vitamin B12 deficiency Vitamin D deficiency Surgical History H/O colonoscopy H/O right mastectomy History of section History of esophagogastroduodenoscopy (EGD) History of hysterectomy History of mastectomy History of removal of Port-a-Cath Family History Father Non-Hodgkin lymphoma Mother CVD (cardiovascular disease) Brother Lung disease Sister No problems noted. Maternal Grandfather Colon cancer Maternal Grandmother CVD (cardiovascular disease) Paternal Grandfather Unknown family medical history Paternal Grandmother Unknown family medical history Brother No problems noted. Son No problems noted. Son No problems noted. Daughter No problems noted. 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 1. Little interest or pleasure in doing things: not at all 2. Feeling down, depressed, or hopeless: not at all 3. Trouble falling or staying asleep, or sleeping too much: several days 4. Feeling tired or having little energy: not at all 5. Poor appetite or overeating: not at all 6. Feeling bad about yourself - or that you are a failure or have let yourself or your family down: not at all 7. Trouble concentrating on things, such as reading the newspaper or watching television: not at all 8. Moving or speaking so slowly that other people could have noticed. Or the opposite - being so fidgety or restless that you have been moving around a lot more than usual: not at all 9. Thoughts that you would be better off or of hurting yourself in some way: not at all Total score: 1 Depression Screening Interpretation: Negative Source: Developed by Drs. Mohit Israel, Krystal Kelsey, Khanh Davis and colleagues, with an educational apple from [employer]. Thrive Questionnaire Date Thrive assessed: 05/28/23 SATISH-7 AMB Questionnaire SATISH-7 Date SATISH - 7 assessed: 05/30/23 Feeling nervous, anxious, or on edge: 0 = Not at all Not being able to stop or control worryin = Not at all Worrying too much about different things: 0 = Not at all Trouble relaxin = Not at all Being so restless that it is hard to sit still: 0 = Not at all Becoming easily annoyed or irritable: 0 = Not at all Feeling afraid as if something awful might happen: 0 = Not at all Total SATISH-7 score (0-4 normal; 5-9 mild; 10-14 moderate; 15-21 severe): 0 Source: Developed by Drs. Mohit Israel, Krystal Kelsey, Khanh Davis and colleagues, with an educational apple from [employer]. Review of Systems Const All systems reviewed & are unremarkable except as noted in HPI and below Reports no additional complaints Eyes Reports no additional complaints ENT Reports no additional complaints Resp Reports no additional complaints GI Reports no additional complaints Reports no additional complaints Physical exam (Primary Care) Vital Signs: Last Vital Signs Pulse 94 05/30/23 14:15 BP 110/66 05/30/23 14:15 Pulse Ox 97 05/30/23 14:15 Oxygen Delivery Method Room Air 05/30/23 14:15 BMI result Body Mass Index 35.2 Tobacco/Smoking Status: Tobacco use Status Tobacco use date assessed 03/01/23 05/30/23 14:23 Patient Tobacco Use Status Former Tobacco user 05/30/23 14:23 Tobacco use type Cigarette 05/30/23 14:23 e-Cigarette/Vaping Use Never Used 05/30/23 14:23 PHQ-9: PHQ-9 Score PHQ-9: Total score 1 05/30/23 14:31 Depression Screening Interpretation: Negative Thrive Assessment: Date of Thrive Assessment Date Thrive assessed 05/28/23 05/30/23 14:23 Const General: no acute distress HENMT Head: Yes normal to inspection General nose exam: Normal external nose present Neck Neck: Yes supple Resp Effort & Inspection: normal respiratory effort Auscultation: crackles (At bases) and diminished lung sounds Cardio Rhythm: regular rhythm Heart sounds: S1 normal heart sound present and S2 normal heart sound present GI Inspection: Yes distended Palpation (GI): Firmness to palpation present (GI) and nontender Auscultation: normal bowel sounds Extrem Other: 3+ pitting edema bilaterally Assessment and Plan Assessment & Plan (1) Ascites: Code(s): R18.8 - Other ascites Plan: Follow-up with the GI for liver cirrhosis with ascites (2) Edema: Code(s): R60.9 - Edema, unspecified Plan: Off furosemide (3) SANDRA (acute kidney injury): Code(s): N17.9 - Acute kidney failure, unspecified Plan: Patient was advised to not take Celebrex or any NSAID, will follow-up with linter operator (4) Cardiac LV ejection fraction of 40-49%: Comment: ECHO 03/04/22 f/u [facility] cardiology Code(s): R94.30 - Abnormal result of cardiovascular function study, unspecified Plan: Follow-up with Cardiology continue metoprolol, follow-up in 1 month, Medications: Discontinued furosemide 40 mg PO BID 90 tabs 3RF omeprazole 20 mg PO DAILY 90 caps 3RF Coding Level of Care Code Est Pt Level 4 (63620) Diagnoses Ascites R18.8 Edema R60.9 SANDRA (acute kidney injury) N17.9 Cardiac LV ejection fraction of 40-49% R94.30
== END 2023-05-30 14:50 | disposition home or self-care (01) ==
PROVIDERS: Visit Provider Internal Medicine
DX: R18.8 Other ascites (principal); N17.9 Acute kidney failure, unspecified; R94.30 Abnormal result of cardiovascular function study, unspecified
CPT/HCPCS: 99214

== ENCOUNTER 2023-06-02 13:00 | Outpatient (AMB) | payer MEDICARE, SELFPAY ==
--- NOTE | 2023-06-02 13:14 | MHC.OFFVIS ---
Intake Vital Signs 06/02/23 13:15 Height 5 ft 7 in Weight 223 lb 1.725 oz BMI 34.9 BP 116/58 L Blood Pressure Location Lt brachial Position Sitting Pulse 86 Intake Visit Reasons: follow up Intake Note: follow up Intermediate Teacher Required: No Accompanied by: Self / Same As Patient Allergies hydromorphone [From DILAUDID] Allergy (Intermediate, Verified 06/02/23 13:17) hives, itching tramadol [From ULTRAM] Allergy (Intermediate, Verified 06/02/23 13:17) hives,itching losartan Allergy (Verified 06/02/23 13:17) Angioedema Medication List - Last Reconciled 06/02/23 by Francisco Langford MD albuterol sulfate 90 mcg/actuation 1 puff inhalation QID PRN aspirin 81 mg PO DAILY cholecalciferol (vitamin D3) 50 mcg PO DAILY fluoxetine 40 mg PO DAILY oqtknsjtniq-stkdzstqo-totgnsyn 200-62.5-25 mcg (Trelegy Ellipta) 1 inh inhalation DAILY 30 days gabapentin 300 mg PO BID magnesium oxide 400 mg PO DAILY metoprolol succinate ER 25 mg PO DAILY omeprazole 20 mg PO DAILY@0630 vitamin B complex (B Complex-Vitamin B12 tablet) 1 tab PO DAILY HPI HPI Comments History of Present Illness Details Sherin returns for follow-up regarding cardiomyopathy. She has a history of nonischemic cardiomyopathy. Most of her testing was in [facility] where she has lived before. At that time, per patient, EF was about 40% or so. Since last seen, it seems that she has been declining. Patient states that she got admitted for cirrhosis. It seems that she was admitted to hospital with increasing leg swelling abdominal swelling. Then she was diagnosed with ETOH/WILLIAM cirrhosis/ascites and had paracentesis. Negative for SBP. Also had SANDRA. Then it seems diuretics were stopped. Given abdomen. Celebrex was held. Improvement in creatinine. Then she was discharged home. Seems she was also on amlodipine that was stopped as the blood pressure okay. Since that time, she states that she is not feeling too good. Legs are still swollen up. Short of breath with activity. Not on diuretics at this time due to renal concerns. With regard to alcohol, she states she has not had any drinks in few months or so. [facility] Medical History Annual physical exam Anxiety, generalized Atrial arrhythmia Breast CA (~03/01/23) Cardiac LV ejection fraction of 40-49% Chronic GERD Chronic systolic (congestive) heart failure Colonoscopy refused COPD (chronic obstructive pulmonary disease) Excessive drinking of alcohol Flank pain, chronic History of breast cancer in female Hx of abdominal pain Hx of screening mammography Hypertension, essential Muscle spasm Neuropathy NICM (nonischemic cardiomyopathy) Osteoarthritis Pulmonary nodules Rheumatoid arthritis Vitamin B12 deficiency Vitamin D deficiency Surgical History H/O colonoscopy H/O right mastectomy History of section History of esophagogastroduodenoscopy (EGD) History of hysterectomy History of mastectomy History of removal of Port-a-Cath Family History Father Non-Hodgkin lymphoma Mother CVD (cardiovascular disease) Brother Lung disease Sister No problems noted. Maternal Grandfather Colon cancer Maternal Grandmother CVD (cardiovascular disease) Paternal Grandfather Unknown family medical history Paternal Grandmother Unknown family medical history Brother No problems noted. Son No problems noted. Son No problems noted. Daughter No problems noted. 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 needs: No Hearing needs: No Vision needs: Yes (wears glasses ) Review of Systems Const Denies weakness ENT Denies dizziness Card Denies chest pain, Denies chest pain with activity, Denies syncope, Denies rapid heart rate, Denies pedal edema, Denies edema, Denies leg edema, Denies lightheadedness, Denies palpitations, Denies dyspnea, Denies dyspnea on exertion and Denies orthopnea Resp Denies cough, Denies dyspnea and Denies dyspnea on exertion GI Denies hematochezia and Denies change in stool character Musc Denies abnormal gait, Denies muscle cramps, Denies muscle weakness, Denies numbness, Denies radiating pain into limb and Denies tingling Neuro Denies abnormal gait, Denies dizziness, Denies syncope, Denies numbness, Denies tingling and Denies weakness Endo Denies palpitations Physical Exam Vital Signs: Last Vital Signs Pulse 86 06/02/23 13:15 BP 116/58 L 06/02/23 13:15 BMI result Body Mass Index 34.9 Const General: comfortable and no acute distress Orientation/consciousness: patient oriented x3 HEENT Other: Unremarkable Head: Yes normal to inspection Neck Neck: Yes normal visual inspection Chest Chest palpation & inspection: normal inspection of the chest Resp Auscultation: clear to auscultation bilaterally Cardio Palpation: normal PMI Heart sounds: S1 normal heart sound present, S2 normal heart sound present, no gallops, no murmurs and no rubs GI Palpation (GI): Soft to palpation Back/Spine/Pelvis Other: unremarkable Skin General skin exam: no rashes or lesions noted Neuro General: patient oriented x3 Extrem Other: 2+ edema General: Yes normal to inspection Psych Mental Status: mental status grossly normal Office Procedures EKG Details: EKG with sinus rhythm at 77/Min; premature supraventricular ectopy; cannot exclude anterior infarct could be from body habitus; normal MT; [place]. [id number], Complete Assessment & Plan Assessment & Plan (1) NICM (nonischemic cardiomyopathy): Comment: f/u [facility] cadiology Code(s): I42.8 - Other cardiomyopathies Plan: Prior cardiac catheterization from 2017 showed normal coronary arteries. At that time, LVEF on left ventriculogram was about 40%. Echocardiogram from 2020 with LVEF of 35-40%. Repeat study after that shows LVEF 55-60% with inferior wall motion abnormality. Could be because of delayed recovery in the inferior wall. Possibilities include alcoholic cardiomyopathy versus chemotherapy induced cardiomyopathy versus others. She used to be on metoprolol ER/losartan. Could not afford Entresto due to cost. After the recent hospitalization, her meds have been changed. She is no longer on the Losartan possibly due to renal issues. Also not on diuretics. We will repeat her echocardiogram to ensure there is no cardiomyopathy component to volume overload. (2) Chronic systolic (congestive) heart failure: Code(s): I50.22 - Chronic systolic (congestive) heart failure Plan: As above, repeat echocardiogram. (3) Atrial arrhythmia: Code(s): I49.8 - Other specified cardiac arrhythmias Plan: She has supraventricular ventricular ectopy. Likely all from some combination of cardiomyopathy, excessive alcohol history. May remain on beta-blockers. In the past, she has had cardiac event monitoring. (4) Excessive drinking of alcohol: Code(s): F10.10 - Alcohol abuse, uncomplicated Plan: Encouraged to abstain from alcohol completely. (5) Hypertension, essential: Code(s): I10 - Essential (primary) hypertension Plan: Off amlodipine. Also off losartan. Seems stable. (6) Prolonged QT interval: Code(s): R94.31 - Abnormal electrocardiogram [ECG] [EKG] Plan: Avoid QT prolonging drugs. Orders: Orders CA echo transthoracic complete Today I42.8 - Other cardiomyopathies Medications: Discontinued furosemide 40 mg PO BID 90 tabs 3RF omeprazole 20 mg PO DAILY 90 caps 3RF Coding Level of Care Code Est Pt Level 4 (19522) Diagnoses NICM (nonischemic cardiomyopathy) I42.8 Chronic systolic (congestive) heart failure I50.22 Atrial arrhythmia I49.8 Excessive drinking of alcohol F10.10 Hypertension, essential I10 Prolonged QT interval R94.31 CPT Codes EKG - CPT: 37426-[id number], Complete ([id number])
[2023-06-02 13:15] VITALS: BP 116/58; PULSE 86; BMI 34.9
== END 2023-06-02 14:07 | disposition home or self-care (01) ==
PROVIDERS: PCP Internal Medicine; Referring Provider Internal Medicine; Visit Provider Internal Medicine
DX: I42.8 Other cardiomyopathies (principal); I50.22 Chronic systolic (congestive) heart failure; I49.8 Other specified cardiac arrhythmias; F10.10 Alcohol abuse, uncomplicated; I10 Essential (primary) hypertension; R94.31 Abnormal electrocardiogram [ECG] [EKG]
CPT/HCPCS: 93010; 99214

== ENCOUNTER → 2023-06-02 13:00 | Outpatient (BNVA) | payer MEDICARE, SELFPAY | PROVIDERS: PCP Internal Medicine; Referring Provider Internal Medicine; Visit Provider Internal Medicine | DX: I42.8 Other cardiomyopathies (principal); I11.0 Hypertensive heart disease with heart failure; I50.22 Chronic systolic (congestive) heart failure; I49.8 Other specified cardiac arrhythmias; R94.31 Abnormal electrocardiogram [ECG] [EKG]; F10.10 Alcohol abuse, uncomplicated | CPT/HCPCS: 93005; 99212 ==

== ENCOUNTER 2023-06-08 11:20 | Outpatient (AMB) | payer MEDICARE, SELFPAY ==
--- NOTE | 2023-06-08 11:25 | MHC.OFFVIS ---
Intake Vital Signs 06/08/23 11:27 Height 5 ft 7 in Weight 225 lb BMI 35.2 Intake Visit Reasons: Cirrhosis of liver Intake Note: Sherin presents in the office as a follow up for cirrhosis of the liver. CC: She states that she is dealing with swelling from her thighs down and now sure why. Shortness of breath more than she was before - she is uncomfortable all the time. she states that her BMs come out in small bits and urinating is another problem. Allergies hydromorphone [From DILAUDID] Allergy (Intermediate, Verified 06/08/23 11:28) hives, itching tramadol [From ULTRAM] Allergy (Intermediate, Verified 06/08/23 11:28) hives,itching losartan Allergy (Verified 06/08/23 11:28) Angioedema HPI HPI Comments History of Present Illness Details 73 YF with COPD, HTN, HFpEF, (EF 55-60% on 03/04/2022), IBS, hx of breast cancer, and hx of alcohol use disorder who is presenting for follow up after recent hospitalisation for ascites. Inpatient consultation 05/27/23: Patient stated that her symptoms began 3-4? weeks ago with edema of her lower extremities.? Pt was seen at [facility] and started on Lasix and dose increased to 40 mg twice daily. Despite increasing her furosemide from 20 mg to 40 mg daily and then 40 mg b.i.d. and wearing compression stockings, patient's symptoms did not improve. Outpatient labs were significant for rapid decline in renal function and she was therefore admitted to the hospital for further management. Underwent albumin IV 100g/day infusion x 3 days with improvement in Cr to 1.5. Baseline appears to be 1.2-1.3. 06/08/23: Pt presents to the office today for follow up, reports shortness of breath has gradually worsened. Notices the girth of the abdomen is unchanged. Has more discomfort in her legs now lilly on walking. Remains abstinent from etOH last drink was on 02/26/23. Continues to be OFF diuretics. Office had called her x 2 to get blood work done however this is still pending. Weight today is 225#. Dry weight appears to be between 218-220 based on review of chart. Has follow up with Renal next week. Also getting another echo done next month. (prev hx of NICM from etOH vs chemo) Previous endoscopy: 03/2021 (Dr Brennan) EGD: gastritis, possible candidal esophagitis vs EoE Colonoscopy: Internal hemorrhoids, diverticular disease PFSH Medical History Annual physical exam Anxiety, generalized Atrial arrhythmia Breast CA (~03/01/23) Cardiac LV ejection fraction of 40-49% Chronic GERD Chronic systolic (congestive) heart failure Colonoscopy refused COPD (chronic obstructive pulmonary disease) Excessive drinking of alcohol Flank pain, chronic History of breast cancer in female Hx of abdominal pain Hx of screening mammography Hypertension, essential Muscle spasm Neuropathy NICM (nonischemic cardiomyopathy) Osteoarthritis Pulmonary nodules Rheumatoid arthritis Vitamin B12 deficiency Vitamin D deficiency Surgical History H/O colonoscopy H/O right mastectomy History of section History of esophagogastroduodenoscopy (EGD) History of hysterectomy History of mastectomy History of removal of Port-a-Cath Family History Father Non-Hodgkin lymphoma Mother CVD (cardiovascular disease) Brother Lung disease Sister No problems noted. Maternal Grandfather Colon cancer Maternal Grandmother CVD (cardiovascular disease) Paternal Grandfather Unknown family medical history Paternal Grandmother Unknown family medical history Brother No problems noted. Son No problems noted. Son No problems noted. Daughter No problems noted. 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 needs: No Hearing needs: No Vision needs: Yes (wears glasses ) Review of Systems Const All systems reviewed & are unremarkable except as noted in HPI and below Physical Exam Vital Signs: BMI result Body Mass Index 35.2 Gen Appear: NAD, undernourished HEENT: No scleral icterus, mild bitemporal wasting noted Chest: Diminshed breath sounds at bases with exp wheezing CVS: Regular S1/S2 no murmurs Abd: soft, nontender, distended, shifting dullness to percussion, bowel sounds active Ext: +++ peripheral edema bilaterally Neuro: A/Ox3, no asterixis Assessment & Plan Assessment & Plan (1) Hepatorenal syndrome: Code(s): K76.7 - Hepatorenal syndrome (2) Ascites: Code(s): R18.8 - Other ascites (3) Liver cirrhosis: Code(s): K74.60 - Unspecified cirrhosis of liver (4) Alcohol use disorder, severe, in early remission: Code(s): F10.21 - Alcohol dependence, in remission Plan Decomp etOH assoc cirrhosis - MELD-Na 18, Child Tracey Class B EtOH use disorder in early remission Congratulated pt on 3 months of sobriety. Discussed natural hx and evolution of liver disease and that continued etOH abstinence will be paramount in avoiding further progression. Continues to be significantly volume overloaded on exam however need to review renal function before diuretics are resumed CAUTIOUSLY and with close monitoring. If Cr not back to baseline, will need a therapeutic para. Also suspect pleural effusion based on exam today, XR ordered. Plan: - CBC, CMP INR - CXR - If renal function back to baseline, will start spironolactone 100mg and repeat labs in 1 week - If renal function abnormal, will set up therapeutic para WITH albumin infusion - EGD to be set up for variceal screening in 4 weeks - US Abd for HCC screening due in Nov 2023. Reminder set. - No evidence of HE on exam today. - Echo already ordered by Cardiology. ARB on hold. Remains on low dose metoprolol due to PVCs. - Transplant candidacy to be reviewed depending on updated MELD as pt is 3 months out from last etOH drink Follow up after EGD Orders: Orders Comprehensive Met. Panel 05/30/23 K74.60 - Unspecified cirrhosis of liver, R18.8 - Other ascites Prothrombin Time INR 05/30/23 K74.60 - Unspecified cirrhosis of liver, R18.8 - Other ascites Complete Blood Count no Diff 05/30/23 K74.60 - Unspecified cirrhosis of liver, R18.8 - Other ascites XR chest 2V Today R18.8 - Other ascites Medications: Discontinued furosemide 40 mg PO BID 90 tabs 3RF omeprazole 20 mg PO DAILY 90 caps 3RF Coding Level of Care Code Est Pt Level 5 (49155) Diagnoses Hepatorenal syndrome K76.7 Ascites R18.8 Liver cirrhosis K74.60 Alcohol use disorder, severe, in early remission F10.21
[2023-06-08 11:27] VITALS: BMI 35.2
== END 2023-06-08 12:29 | disposition home or self-care (01) ==
PROVIDERS: PCP Internal Medicine; Visit Provider Internal Medicine
DX: K76.7 Hepatorenal syndrome (principal); R18.8 Other ascites; K74.60 Unspecified cirrhosis of liver; F10.21 Alcohol dependence, in remission
CPT/HCPCS: 99214

== ENCOUNTER 2023-06-08 11:20 | Outpatient (REF) | payer MEDICARE, SELFPAY ==
--- NOTE | ~2023-06-08 | XR_ITS ---
EXAMINATION: XR CHEST CLINICAL INFORMATION: Other ascites COMPARISON: Chest 05/05/2023 TECHNIQUE: 2 views of the chest were obtained. 12:56 PM FINDINGS: There is increased opacity in the right lower lobe and right middle lobe with blunting of the right costophrenic angle which may represent a combination of fluid, atelectasis, and/or pneumonia. There is no interstitial pulmonary edema. Trace linear density at the left lung base likely represents scar and/or atelectasis. No significant abnormality is noted involving the heart, mediastinum, bony thorax or soft tissues. XR/XR chest 2V IMPRESSION: Right lower lobe and right middle lobe pneumonia with small right pleural effusion. Follow-up to resolution is suggested.
[2023-06-08 13:36] LABS: Hematocrit 31.9 % (37.0-47.0); Hemoglobin 10.5 g/dl (12.0-16.0); Mean Corpuscular HGB Conc 32.9 g/dl (31.0-35.0); Mean Corpuscular Volume 103.2 fL (80.0-98.0); Mean Platelet Volume 12.2 fL (9.4-12.3); Platelet Count 140 X10*3/uL (160-400); Red Blood Count 3.09 X10*6/uL (4.20-5.50); Red Cell Distribution Width 15.2 % (11.0-16.0); White Blood Count 7.5 X10*3/uL (4.8-10.8)
[2023-06-08 14:08] LABS: INTERNATIONAL NORM RATIO 1.6 (0.9-1.1)
[2023-06-08 14:47] LABS: Alanine Aminotransferase 17 U/L (0-31); Albumin Level 3.2 g/dL (3.5-5.0); Alkaline Phosphatase 102 U/L (39-117); Anion Gap 11 (12-20); Aspartate Amino Transferase 38 U/L (5-31); Bilirubin Total 3.9 mg/dL (0.0-1.0); Blood Urea Nitrogen 15 mg/dL (9-16); Calcium 9.1 mg/dL (8.4-10.2); Carbon Dioxide 23 mmol/L (22-29); Chloride 105 mmol/L (96-108); Estimated Glomerular Filt Rate 39; Glucose Random 123 mg/dL (60-115); Potassium 3.9 mmol/L (3.3-5.1); Sodium 135 mmol/L (135-145); Total Protein 6.9 g/dL (6.5-8.0)
== END 2023-06-08 11:21 | disposition home or self-care (01) ==
LOC: HO.LAB 11:20
PROVIDERS: PCP Internal Medicine; Visit Provider Internal Medicine
DX: R18.8 Other ascites (principal); K74.60 Unspecified cirrhosis of liver
CPT/HCPCS: 36415; 71046; 80053; 85027; 85610; 99212

== ENCOUNTER 2023-06-16 10:16 | Outpatient (REF) | payer MEDICARE, SELFPAY ==
[2023-06-16 14:17] LABS: Anion Gap 12 (12-20); Blood Urea Nitrogen 15 mg/dL (9-16); Calcium 9.6 mg/dL (8.4-10.2); Carbon Dioxide 23 mmol/L (22-29); Chloride 105 mmol/L (96-108); Estimated Glomerular Filt Rate 40; Glucose Random 103 mg/dL (60-115); Potassium 4.3 mmol/L (3.3-5.1); Sodium 136 mmol/L (135-145)
== END 2023-06-16 10:17 | disposition home or self-care (01) ==
LOC: HO.HMGCLDS 10:16
PROVIDERS: PCP Internal Medicine; Visit Provider Internal Medicine
DX: N17.9 Acute kidney failure, unspecified (principal)
CPT/HCPCS: 36415; 80048

== ENCOUNTER 2023-06-24 09:03 | Day surgery (SDC) | payer MEDICARE, SELFPAY ==
--- NOTE | ~2023-06-24 | US_ITS ---
EXAMINATION: US EVALUATION PRIOR TO ATTEMPTED PARACENTESIS CLINICAL INFORMATION: Ascites. COMPARISON: 05/27/2023. TECHNIQUE: Targeted ultrasound evaluation for ascites. FINDINGS: Ultrasound scanning of the abdomen demonstrated a small amount of fluid with adjacent bowel with no significant fluid collection appreciated that could be safely accessed. The study was being done as a therapeutic drainage and not as a diagnostic drainage. Patient does not complain of abdominal pain and states that she has lost considerable weight after being placed on diuretics. The paracentesis was canceled. US/US paracentesis abd w/image IMPRESSION: Minimal amount of ascites. Paracentesis canceled.
[2023-06-24 09:20] LABS: MANUAL DIFF FLAG NO
[2023-06-24 09:23] LABS: Basophils Percent Auto 0.5 % (0-2); Eosinophils Absolute Auto 0.1 X10*3/uL (0.0-0.4); Eosinophils Percent Auto 1.3 % (0-4); Hematocrit 35.1 % (37.0-47.0); Hemoglobin 11.5 g/dl (12.0-16.0); Imm Gran Abs Auto 0.02 X10*3/uL (0.00-0.03); Imm Gran Pct Auto 0.3 % (0.0-0.4); Lymphocytes Absolute Auto 1.5 X10*3/uL (1.2-4.9); Lymphocytes Percent Auto 19.1 % (20-40); Mean Corpuscular HGB Conc 32.8 g/dl (31.0-35.0); Mean Corpuscular Hemoglobin 34.4 pg (27.0-33.0); Mean Corpuscular Volume 105.1 fL (80.0-98.0); Mean Platelet Volume 11.8 fL (9.4-12.3); Monocytes Absolute Auto 0.9 X10*3/uL (0.1-1.2); Monocytes Percent Auto 12.1 % (2-11); Neutrophils Absolute Auto 5.2 x10*3/uL (2.0-8.3); Neutrophils Percent Auto 66.7 % (45-73); Platelet Count 165 X10*3/uL (160-400); Red Blood Count 3.34 X10*6/uL (4.20-5.50); Red Cell Distribution Width 16.2 % (11.0-16.0); White Blood Count 7.8 X10*3/uL (4.8-10.8)
[2023-06-24 09:38] LABS: INTERNATIONAL NORM RATIO 1.5 (0.9-1.1); Prothrombin Time 18.4 SEC (11.1-13.3)
[2023-06-24 09:40] LABS: Partial Thromboplastin Time 42.1 SEC (26.0-36.4)
[2023-06-24 10:00] VITALS: BMI 30.4
== END 2023-06-24 10:33 | disposition home or self-care (01) ==
LOC: HO.SSS 09:05
PROVIDERS: Radiology Diagnostic Radiology; PCP Internal Medicine; Visit Provider Internal Medicine
DX: R18.8 Other ascites (principal); F10.21 Alcohol dependence, in remission; K74.60 Unspecified cirrhosis of liver; E53.8 Deficiency of other specified B group vitamins; E55.9 Vitamin D deficiency, unspecified; Z85.3 Personal history of malignant neoplasm of breast; J44.9 Chronic obstructive pulmonary disease, unspecified; I11.0 Hypertensive heart disease with heart failure; I50.22 Chronic systolic (congestive) heart failure
CPT/HCPCS: 36415; 49083; 85025; 85610; 85730

== ENCOUNTER → 2023-06-24 10:03 | Outpatient (BNV) | payer MEDICARE, SELFPAY | PROVIDERS: PCP Internal Medicine; Visit Provider Radiology Diagnostic Radiology | DX: R18.8 Other ascites (principal) | CPT/HCPCS: 49083 ==

== ENCOUNTER 2023-07-06 14:34 | Outpatient (AMB) | payer MEDICARE, SELFPAY ==
[2023-07-06 14:35] VITALS: BP 114/70; PULSE 71; O2SAT 96; BMI 28.8
--- NOTE | 2023-07-06 14:35 | MHC.PC.OV ---
Vital Signs 07/06/23 14:35 Height 5 ft 7 in Weight 184 lb BMI 28.8 BP 114/70 Blood Pressure Location Lt brachial Position Sitting Pulse 71 Pulse Source Pulse Oximeter Pulse Oximetry (%) 96 Oxygen Delivery Method Room Air Intake Visit Reasons: 1 month follow up Intake Note: Pt is here today for 1 month follow up visit. Pt would like to discuss increasing Gabapentin medication. Allergies hydromorphone [From DILAUDID] Allergy (Intermediate, Verified 07/06/23 14:40) hives, itching tramadol [From ULTRAM] Allergy (Intermediate, Verified 07/06/23 14:40) hives,itching losartan Allergy (Verified 07/06/23 14:40) Angioedema Medication List - Last Reconciled 07/06/23 by Adele Knight MD albuterol sulfate 90 mcg/actuation 1 puff inhalation QID PRN aspirin 81 mg PO DAILY cholecalciferol (vitamin D3) 50 mcg PO DAILY fluoxetine 40 mg PO DAILY nqnyohvywiv-eipehuxpc-xfwubzqp 200-62.5-25 mcg (Trelegy Ellipta) 1 inh inhalation DAILY 30 days furosemide 20 mg PO DAILY gabapentin 300 mg PO BID magnesium oxide 400 mg PO DAILY metoprolol succinate ER 25 mg PO DAILY omeprazole 20 mg PO DAILY spironolactone 100 mg PO DAILY vitamin B complex (B Complex-Vitamin B12 tablet) 1 tab PO DAILY Tobacco use date assessed: 03/01/23 HPI 1 month follow up HPI Details Pt presents for f/u chronic kidney disease stage 3, liver cirrhosis, ascites improving on Spironolactone and Lasix. COPD is stable on Trelegy. Patient follows up with GI, Nephrology and Cardiology and will have echocardiogram. Patient has been sober for 5 months. [facility] Medical History Annual physical exam Anxiety, generalized Atrial arrhythmia Breast CA (~03/01/23) Cardiac LV ejection fraction of 40-49% Chronic GERD Chronic systolic (congestive) heart failure Colonoscopy refused COPD (chronic obstructive pulmonary disease) Excessive drinking of alcohol Flank pain, chronic History of breast cancer in female Hx of abdominal pain Hx of screening mammography Hypertension, essential Muscle spasm Neuropathy NICM (nonischemic cardiomyopathy) Osteoarthritis Pulmonary nodules Rheumatoid arthritis Vitamin B12 deficiency Vitamin D deficiency Surgical History H/O colonoscopy H/O right mastectomy History of section History of esophagogastroduodenoscopy (EGD) History of hysterectomy History of mastectomy History of removal of Port-a-Cath Family History Father Non-Hodgkin lymphoma Mother CVD (cardiovascular disease) Brother Lung disease Sister No problems noted. Maternal Grandfather Colon cancer Maternal Grandmother CVD (cardiovascular disease) Paternal Grandfather Unknown family medical history Paternal Grandmother Unknown family medical history Brother No problems noted. Son No problems noted. Son No problems noted. Daughter No problems noted. 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 Mohit Israel, Krystal Kelsey, Khanh Davis and colleagues, with an educational apple from [employer]. Review of Systems Const All systems reviewed & are unremarkable except as noted in HPI and below Reports no additional complaints Eyes Reports no additional complaints ENT Reports no additional complaints Card Reports no additional complaints Resp Reports no additional complaints GI Reports no additional complaints Reports no additional complaints Physical exam (Primary Care) Vital Signs: Last Vital Signs Pulse 71 07/06/23 14:35 BP 114/70 07/06/23 14:35 Pulse Ox 96 07/06/23 14:35 Oxygen Delivery Method Room Air 07/06/23 14:35 BMI result Body Mass Index 28.8 Tobacco/Smoking Status: Tobacco use Status Tobacco use date assessed 03/01/23 07/06/23 14:44 Patient Tobacco Use Status Former Tobacco user 07/06/23 14:44 Tobacco use type Cigarette 07/06/23 14:44 e-Cigarette/Vaping Use Never Used 07/06/23 14:44 Thrive Assessment: Date of Thrive Assessment Date Thrive assessed 05/28/23 07/06/23 14:44 Const General: no acute distress HENMT Head: Yes normal to inspection Mouth: Normal oral and palatal mucosa present Resp Effort & Inspection: normal respiratory effort Auscultation: clear to auscultation bilaterally Cardio Rhythm: regular rhythm Heart sounds: S1 normal heart sound present and S2 normal heart sound present GI Inspection: Yes normal to inspection Palpation (GI): Soft to palpation Percussion: Yes normal to percussion Auscultation: normal bowel sounds Assessment and Plan Assessment & Plan (1) Alcohol use disorder, severe, in early remission: Comment: Sober since November 2022 Code(s): F10.21 - Alcohol dependence, in remission (2) Ascites: Code(s): R18.8 - Other ascites Plan: Resolved with the medications. Repeated ultrasound in the end of May showed trace ascites (3) SANDRA (acute kidney injury): Code(s): N17.9 - Acute kidney failure, unspecified Plan: Improving continue current treatment and follow-up with nephrology. Check comprehensive panel in 1 month (4) Hyperglycemia: Code(s): R73.9 - Hyperglycemia, unspecified Plan: Continue ADA diet check A1c (5) Hypomagnesemia: Code(s): E83.42 - Hypomagnesemia Plan: Continue magnesium supplement and check the level. Follow-up in 3 months Orders: Orders Comprehensive [place]. Panel Fast 1 Month E83.42 - Hypomagnesemia, F10.21 - Alcohol dependence, in remission, K76.7 - Hepatorenal syndrome, R73.9 - Hyperglycemia, unspecified Hemoglobin A1c 1 Month E83.42 - Hypomagnesemia, F10.21 - Alcohol dependence, in remission, K76.7 - Hepatorenal syndrome, R73.9 - Hyperglycemia, unspecified Complete Blood Count Auto Diff 1 Month E83.42 - Hypomagnesemia, F10.21 - Alcohol dependence, in remission, K76.7 - Hepatorenal syndrome, R73.9 - Hyperglycemia, unspecified Magnesium 1 Month E83.42 - Hypomagnesemia, F10.21 - Alcohol dependence, in remission, K76.7 - Hepatorenal syndrome, R73.9 - Hyperglycemia, unspecified Coding Level of Care Code Est Pt Level 4 (65944) Diagnoses Alcohol use disorder, severe, in early remission F10.21 Ascites R18.8 SANDRA (acute kidney injury) N17.9 Hyperglycemia R73.9 Hypomagnesemia E83.42
== END 2023-07-06 15:21 | disposition home or self-care (01) ==
PROVIDERS: PCP Internal Medicine; Visit Provider Internal Medicine
DX: N17.9 Acute kidney failure, unspecified (principal); F10.21 Alcohol dependence, in remission; E83.42 Hypomagnesemia; R18.8 Other ascites; R73.9 Hyperglycemia, unspecified
CPT/HCPCS: 99214

== ENCOUNTER → 2023-07-07 12:59 | Outpatient (REF) | payer MEDICARE, SELFPAY ==
--- NOTE | 2023-07-07 13:02 | CA_ITS ---
Transthoracic Echocardiogram Amended Patient (Last, First, Middle): Sherin Butler A Gender: Female Date of : 1950 Age: 73 Procedure Date: 07/07/2023 Procedure Type: Transthoracic Echocardiogram Location: OP Height: 170.18 cm Weight: 83.46 kg BSA: 1.95 m2 Heart Rate: 61 bpm BP: 112 / 70 mmHg Manager Apple: RAYMOND Referring MD: Francisco Langford MD Symptoms: I42.8 - Other cardiomyopathies Study Quality: Fair ECG Rhythm: Sinus Conclusions: - The left ventricular systolic function is normal. The visually estimated ejection fraction is between 55-60%. - Evidence suggests grade II (moderate) diastolic dysfunction. - The left atrium is severely dilated. - There is mild calcification of the aortic valve. - There is mild mitral annular calcification. Findings Left Ventricle Mildly increased left ventricular cavity size. There is mildly increased left ventricular wall thickness. The left ventricular systolic function is normal. The visually estimated ejection fraction is between 55-60%. There is no evidence of regional wall motion abnormalities. E/E prime ratio is >15, consistent with elevated filling pressures. Evidence suggests grade II (moderate) diastolic dysfunction. Right Ventricle Normal right ventricular cavity size and systolic function. Atria The left atrium is severely dilated. The right atrium is normal in size. Aortic Valve There is a normal trileaflet aortic valve. There is mild calcification of the aortic valve. There is no aortic valve stenosis. There is no aortic valve regurgitation. Mitral Valve There is mild anterior mitral leaflet thickening. There is mild mitral annular calcification. There is mild mitral valve regurgitation. There is no mitral valve stenosis. Pulmonic Valve The pulmonic valve is likely normal. Tricuspid Valve There is mild tricuspid valve regurgitation. There is no evidence of pulmonary hypertension. Great Vessels The asc aorta is normal in size. Venous The inferior vena cava is normal in size and collapses greater than 50% with inspiration. Pericardium/Pleural There is no evidence of pericardial effusion. Prior Study Comparison Changes noted compared to prior study dated: 03/04/2022. Progression of diastolic dysfunction. Measurements 2D Linear Measurements IVSd: 1.17 0.6-0.9/0.6-1.0 cm LVIDd: 5.51 3.9-5.3/4.2-5.9 cm LVIDd Index: 2.83 2.4-3.2/2.2-3.1 cm/m2 LVIDs: 3.80 2.0-3.6 cm LVPWd: 1.26 0.7-1.1 cm LA Diam: 4.40 2.7-3.8/3.0-4.0 cm LAIDs Index: 2.26 1.5-2.3 cm/m2 LV Mass: 346.61 67-162/88-224 g LV Mass Index: 177.75 43-95/49-115 g/m2 LVOT Diam: 2.00 3.0+(-)1.3 cm 2D Volumes LA Vol: 54.90 2D Systolic Function EF 4C: 52.80 >55% EF 2C: 52.80 >55% EF BiP: 51.90 >55% Mitral Valve MV Pk E: 0.79 MV PK A: 0.65 MV Decel Time: 500.00 E/A: 1.20 E'Lateral: 3.30 E'Medial: 4.19 E/E' Med: 18.90 E/E' Lat: 24.00 PHT: 146.00 MVA PHT: 1.51 Decel Angelina: 1.59 Aortic Valve AoV Pk Vincent: 1.34 AoV Mn Vincent: 0.98 AoV VTI: 0.36 AoV Pk Grad: 7.00 Aov Mn Grad: 4.00 LEONIDAS Cont.VTI: 2.20 LVOT LVOT Pk Vincent: 0.93 LVOT Mn Vincent: 0.74 LVOT VTI: 0.25 LVOT Pk Grad: 3.00 LVOT Mn Grad: 2.00 LVOT Diam: 2.00 LVOT Area: 3.14 Diastolic Function MV Pk E: 0.79 MV Pk A: 0.65 E/A: 1.20 E'Medial: 4.19 E/E' Med: 18.90 E' Laterial: 3.30 E/E' Lat: 24.00 Right Ventricle TAPSE (mm): 26.90 TVS' Vincent: 11.30 Tricuspid Valve TR Pk Vincent: 2.43 TR Pk Grad: 24.00 RA Press: 3.00 RVSP: 27.00 Great Vessels Aorta Sinus of Valsalva: 3.60 2.0-3.5 cm Ao Asc: 3.40 2.1-3.4 cm Pulmonary Valve PV Pk Vincent: 0.86 Peak PV Grad: 3.00 Updated in Other Vendor System with Status of Final Francisco Langford MD electronically signed on 07/08/2023 2:11:21 PM with status of Final
== END ==
LOC: HO.CARD 12:59
PROVIDERS: PCP Internal Medicine; Visit Provider Internal Medicine
DX: I42.8 Other cardiomyopathies (principal)
CPT/HCPCS: 93306

== ENCOUNTER → 2023-07-07 13:02 | Outpatient (BNV) | payer MEDICARE, SELFPAY | PROVIDERS: PCP Internal Medicine; Visit Provider Internal Medicine | DX: I34.81 Nonrheumatic mitral (valve) annulus calcification (principal); I35.8 Other nonrheumatic aortic valve disorders | CPT/HCPCS: 93306 ==

== ENCOUNTER 2023-07-19 12:19 | Day surgery (SDC) | payer MEDICARE, SELFPAY ==
--- NOTE | 2023-07-15 13:27 | P.CONAN_ITS ---
Documented by User: Маиря Saldana NP 07/18/23 10:11 HPI - Anesthesia Eval Consult details Narrative: 73yo F for Upper Endoscopy [facility] admit 05/2023 for etoh and WILLIAM cirrhosis with ascites. underwent paracentesis (10cc) negative for SBP. also had SANDRA on admission. likely due to dehydration, diuretics were held, given iv albumin, celebrex held, creatinine improved from 2.11 to 1.5 Post-discharge, pt with LE edema and SOB. Sent for ECHO by cardiology. Worsening diastolic dysfunction but no changes to treatment and OK for September f/u. No ETOH since 11/2022 per pcp note Para cancelled 06/24/23, no fluid PMFSH Active Problems Active Problems: All Active Problems (Updated 07/06/23 @ 15:26 by Adele Knight MD) Alcohol use disorder, severe, in early remission (Acute) Hepatorenal syndrome (Acute) Ascites (Acute) Edema (Acute) SANDRA (acute kidney injury) (Acute) Prolonged QT interval (Acute) Liver cirrhosis (Acute) Hyperglycemia (Acute) Hypomagnesemia (Acute) Postmenopausal (Acute) Lumbar back pain (Acute) Knee pain, right (Acute) DJD (degenerative joint disease), lumbar (Acute) Neuropathy (Acute) Hx of screening mammography (Acute) Vitamin B12 deficiency (Acute) Vitamin D deficiency (Acute) Annual physical exam (Acute) Breast CA (Acute ~03/01/23) Flank pain, chronic (Acute) Berna esophagitis (Acute) Abdominal pain (Acute) Early satiety (Acute) Polyarthralgia (Acute) Excessive drinking of alcohol (Acute) COPD (chronic obstructive pulmonary disease) (Acute) Pulmonary nodules (Acute) Atrial arrhythmia (Acute) Chronic systolic (congestive) heart failure (Acute) NICM (nonischemic cardiomyopathy) (Acute) Cardiac LV ejection fraction of 40-49% (Acute) Osteoarthritis (Acute) Rheumatoid arthritis (Acute) Colonoscopy refused (Acute) Muscle spasm (Acute) Chronic GERD (Acute) Anxiety, generalized (Acute) Hypertension, essential (Acute) Past Medical History Medical History (Updated 07/06/23 @ 15:26 by Adele Knight MD) Neuropathy Hx of screening mammography Vitamin B12 deficiency Vitamin D deficiency Annual physical exam Breast CA (~03/01/23) Flank pain, chronic Hx of abdominal pain Excessive drinking of alcohol COPD (chronic obstructive pulmonary disease) Pulmonary nodules Atrial arrhythmia Chronic systolic (congestive) heart failure NICM (nonischemic cardiomyopathy) Cardiac LV ejection fraction of 40-49% Osteoarthritis Rheumatoid arthritis Colonoscopy refused Muscle spasm History of breast cancer in female Chronic GERD Anxiety, generalized Hypertension, essential Family History Family History Father Non-Hodgkin lymphoma Mother CVD (cardiovascular disease) Brother Lung disease Sister No problems noted. Maternal Grandfather Colon cancer Maternal Grandmother CVD (cardiovascular disease) Paternal Grandfather Unknown family medical history Paternal Grandmother Unknown family medical history Brother No problems noted. Son No problems noted. Son No problems noted. Daughter No problems noted. Other Mental health disorder Substance use disorder Surgical History Surgical History (Updated 07/19/23 @ 13:18 by Eboni Lala) History of esophagogastroduodenoscopy (EGD) H/O colonoscopy History of removal of Port-a-Cath History of hysterectomy History of section H/O right mastectomy Social History Social History Household Members: None Housing: Apartment Do you presently have visiting nurse or other home services: No Alcohol intake: former Year quit: 2022 Patient Tobacco Use Status: Former Tobacco user Quit Date: 1994 Tobacco use type: Cigarette Years Smoked: 10 Smoked in Last 30 Days: No e-Cigarette/Vaping Use: Never Used Second Hand Smoke Exposure: No Use of substances other than those prescribed or required for medical reasons: No Are you DNR?: No Advance Directives: No Advance Directives Information Provided: Yes service: No 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 needs: No Hearing needs: No Vision needs: Yes (wears glasses ) Meds Allergies Allergy/AdvReac Type Severity Reaction Status Date / Time hydromorphone [From DILAUDID] Allergy Intermediate hives, Verified 07/19/23 13:12 itching losartan Allergy Intermediate Angioedema Verified 07/19/23 13:12 tramadol [From ULTRAM] Allergy Intermediate hives,itchi Verified 07/19/23 13:12 ng Home Medications Medication Instructions Recorded Confirmed Last Taken Type aspirin 81 mg tablet,delayed 81 mg PO DAILY 12/18/20 07/19/23 07/18/23 History release cholecalciferol (vitamin D3) 50 50 mcg PO DAILY 12/18/20 07/19/23 05/26/23 History mcg (2,000 unit) capsule vitamin B complex (B 1 tab PO DAILY 07/27/21 07/19/23 05/26/23 History Complex-Vitamin B12 tablet) furosemide 20 mg tablet 20 mg PO BID 07/15/23 07/19/23 Unknown History omeprazole 20 mg capsule,delayed 20 mg PO DAILY 07/15/23 07/19/23 07/19/23 History release Exam Exam Date and Time: July 15, 2023 1327 Pertinent Lab Results Pertinent Lab Results: Laboratory Tests 06/16/23 06/24/23 10:24 09:16 WBC 7.8 Hgb 11.5 L Hct 35.1 L Plt Count 165 Sodium 136 Potassium 4.3 Chloride 105 Carbon Dioxide 23 BUN 15 Creatinine 1.31 Laboratory Tests 06/08/23 12:47 Calcium 9.1 Total Bilirubin 3.9 H AST 38 H ALT 17 Alkaline Phosphatase 102 Total Protein 6.9 Albumin 3.2 L Narrative Narrative: EKG 05/2023 SR with PACs Low volt QRS Prolonged QT ECHO 06/2023 Conclusions: - The left ventricular systolic function is normal. The visually estimated ejection fraction is between 55-60%. - Evidence suggests grade II (moderate) diastolic dysfunction. - The left atrium is severely dilated. - There is mild calcification of the aortic valve. - There is mild mitral annular calcification. Assessment and Plan Assessment Anesthesia Assessment: Chart Reviewed Documented by User: Holden Avila MD 07/19/23 13:54 [facility] Past Medical History Medical History (Updated 07/06/23 @ 15:26 by Adele Knight MD) Neuropathy Hx of screening mammography Vitamin B12 deficiency Vitamin D deficiency Annual physical exam Breast CA (~03/01/23) Flank pain, chronic Hx of abdominal pain Excessive drinking of alcohol COPD (chronic obstructive pulmonary disease) Pulmonary nodules Atrial arrhythmia Chronic systolic (congestive) heart failure NICM (nonischemic cardiomyopathy) Cardiac LV ejection fraction of 40-49% Osteoarthritis Rheumatoid arthritis Colonoscopy refused Muscle spasm History of breast cancer in female Chronic GERD Anxiety, generalized Hypertension, essential Family History Family History Father Non-Hodgkin lymphoma Mother CVD (cardiovascular disease) Brother Lung disease Sister No problems noted. Maternal Grandfather Colon cancer Maternal Grandmother CVD (cardiovascular disease) Paternal Grandfather Unknown family medical history Paternal Grandmother Unknown family medical history Brother No problems noted. Son No problems noted. Son No problems noted. Daughter No problems noted. Other Mental health disorder Substance use disorder Family history of problems with anesthesia: No Surgical History Surgical History (Updated 07/19/23 @ 13:18 by Eboni Lala) History of esophagogastroduodenoscopy (EGD) H/O colonoscopy History of removal of Port-a-Cath History of hysterectomy History of section H/O right mastectomy History of Problems with Anesthesia: No Social History Social History Household Members: None Housing: Apartment Do you presently have visiting nurse or other home services: No Alcohol intake: former Year quit: 2022 Patient Tobacco Use Status: Former Tobacco user Quit Date: 1994 Tobacco use type: Cigarette Years Smoked: 10 Smoked in Last 30 Days: No e-Cigarette/Vaping Use: Never Used Second Hand Smoke Exposure: No Use of substances other than those prescribed or required for medical reasons: No Are you DNR?: No Advance Directives: No Advance Directives Information Provided: Yes service: No 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 needs: No Hearing needs: No Vision needs: Yes (wears glasses ) Meds Allergies Allergy/AdvReac Type Severity Reaction Status Date / Time hydromorphone [From DILAUDID] Allergy Intermediate hives, Verified 07/19/23 13:12 itching losartan Allergy Intermediate Angioedema Verified 07/19/23 13:12 tramadol [From ULTRAM] Allergy Intermediate hives,itchi Verified 07/19/23 13:12 ng Home Medications Medication Instructions Recorded Confirmed Last Taken Type aspirin 81 mg tablet,delayed 81 mg PO DAILY 12/18/20 07/19/23 07/18/23 History release cholecalciferol (vitamin D3) 50 50 mcg PO DAILY 12/18/20 07/19/23 05/26/23 History mcg (2,000 unit) capsule vitamin B complex (B 1 tab PO DAILY 07/27/21 07/19/23 05/26/23 History Complex-Vitamin B12 tablet) furosemide 20 mg tablet 20 mg PO BID 07/15/23 07/19/23 Unknown History omeprazole 20 mg capsule,delayed 20 mg PO DAILY 07/15/23 07/19/23 07/19/23 History release Exam Airway Mallampati Class: II TM Dist: <=3cm Neck ROM: Full Heart: ok. see above. Lungs: ok Assessment and Plan Assessment Anesthesia Assessment: Anesthesia Plan Discussed Final Anesthetic Review Family History of Problems with Anesthesia: No History of Problems with Anesthesia: No NPO: Yes ASA Class: IV Final Preanesthetic Review: No Changes in Pt Med Stat, Meds/Allgs Chart Reviewed, Consent Obtained/Reviewed and Anes Risks/Benef Reviewed Patient Risk: High Procedure Risk: Intermediate Anesthetic Plan Anesthetic Plan: MAC: and Agree w/ Assess. and Plan Disposition: Standard PACU
[2023-07-19 13:18] VITALS: BP 141/57; PULSE 71; RESP 16; TEMP 36.4; O2SAT 98; BMI 27.1
[2023-07-19] MEDS: Lactated Ringers 1,000 ML 50 ML IVCONT (13:30)
[2023-07-19 13:35] LABS: INTERNATIONAL NORM RATIO 1.3 (0.9-1.1); Prothrombin Time 15.9 SEC (11.1-13.3)
--- NOTE | 2023-07-19 13:48 | MHC.SHP ---
Pre-Procedural Eval Section A Date of Service: 07/19/23 Section B Chief Complaint: cirrhosis of liver,ascites Details of Present Illness: PMH: Annual physical exam Anxiety, generalized Atrial arrhythmia Breast CA (~03/01/23) Cardiac LV ejection fraction of 55-60% Chronic GERD Chronic systolic (congestive) heart failure Colonoscopy refused COPD (chronic obstructive pulmonary disease) Excessive drinking of alcohol Flank pain, chronic History of breast cancer in female Hx of abdominal pain Hx of screening mammography Hypertension, essential Muscle spasm Neuropathy NICM (nonischemic cardiomyopathy) Osteoarthritis Pulmonary nodules Rheumatoid arthritis Vitamin B12 deficiency Vitamin D deficiency Surgical History H/O colonoscopy H/O right mastectomy History of section History of esophagogastroduodenoscopy (EGD) History of hysterectomy History of mastectomy History of removal of Port-a-Cath Present Medications: see Short Stay Collaborative assessment Allergies: Allergies Allergy/AdvReac Type Severity Reaction Status Date / Time hydromorphone [From DILAUDID] Allergy Intermediate hives, Verified 07/19/23 13:12 itching losartan Allergy Intermediate Angioedema Verified 07/19/23 13:12 tramadol [From ULTRAM] Allergy Intermediate hives,itchi Verified 07/19/23 13:12 ng Review of Systems Review of Systems Comment: Ten?point?ROS?negative Exam Exam Comment: Gen?appear:?No?acute?distress HEENT:?no?icterus Chest:?No?overt?resp?distress Abd:?soft,?nontender,?nondistended Psych:?Stable?affect,?answering?questions?appropriately? Neuro:?A/Ox3?noted?to?move?all?extremities?spontaneously? Ext:?no?peripheral?edema? Plan Diagnosis/Plan: Unchanged I have reviewed the history and physical and performed a pertinent physical examination on my patient. No changes have occurred unless specified. Time Spent With Patient Time: Total time managing care of this patient today ____ minutes.
--- NOTE | 2023-07-19 13:49 | P.OP_ITS ---
Operative Note Operative Note Date of Service: 07/19/23 Narrative: Procedure: Esophagogastroduodenoscopy Endoscopist: Марина Montoya MD Indication: Decompensated cirrhosis Anesthesia Provider: Dr Holden Avila Anesthesia Type: MAC ?? EGD Procedure:?? The procedure, indications, preparation and potential complications were reviewed with the patient, who indicated understanding and gave written informed consent to proceed. A physical exam was performed. The endoscope was introduced through the mouth, and advanced to the second part of duodenum. The mucosa was carefully examined on slow withdrawal of the endoscope. The patient tolerated the procedure well. There were no immediate complications.? ? EGD Findings:? * Esophagus:? Normal mucosa noted in the entire esophagus. The Z line was at 40cm. Flat varices were noted in the lower esophagus. * Stomach:? Diffuse congestion and erythema in mosaic pattern consistent with portal hypertensive gastropathy was noted in the whole stomach. * Duodenum:? Normal mucosa was noted in the whole of the examined duodenum. ? EGD Impressions:? * Flat varices * Portal hypertensive gastropathy * Normal duodenum ?? Recommendations:?? * Repeat EGD in 2 years for variceal screening, 1 year if etOH use relapses * Cont abstinence from etOH * Pt also due for follow up CXR which has been ordered Above has been reviewed with the patient.
[2023-07-19 13:58] LABS: B Type Natriuretic Peptide 237 pg/mL (<100)
--- NOTE | 2023-07-19 14:03 | PC.NURSE ---
Dr. Avila made aware of preop lab draw results of BNP 237, PT 15.9, and INR 1.3. Okay to proceed with procedure.
[2023-07-19 14:29] VITALS: BP 107/51; PULSE 69; RESP 16; TEMP 36.2; O2SAT 95
[2023-07-19 14:46] VITALS: BP 111/56; PULSE 67; RESP 18; TEMP 36.3; O2SAT 97
== END 2023-07-19 15:03 | disposition home or self-care (01) ==
PROVIDERS: Nurse Practitioner; PCP Internal Medicine; Visit Provider Internal Medicine
PROC: 0DJ08ZZ Inspection of Upper Intestinal Tract, Via Natural or Artificial Opening Endoscopic (ICD-10-PCS; CPT 43235; principal; 2023-07-19 14:00)
DX: K74.60 Unspecified cirrhosis of liver (principal); R18.8 Other ascites; R06.02 Shortness of breath; I85.00 Esophageal varices without bleeding; K76.6 Portal hypertension; K31.89 Other diseases of stomach and duodenum; K76.7 Hepatorenal syndrome; K58.9 Irritable bowel syndrome, unspecified; F10.21 Alcohol dependence, in remission; J44.9 Chronic obstructive pulmonary disease, unspecified; I11.0 Hypertensive heart disease with heart failure; I50.22 Chronic systolic (congestive) heart failure; M06.9 Rheumatoid arthritis, unspecified; R91.8 Other nonspecific abnormal finding of lung field; Z85.3 Personal history of malignant neoplasm of breast; E55.9 Vitamin D deficiency, unspecified; Z88.8 Allergy status to other drugs, medicaments and biological substances; Z87.891 Personal history of nicotine dependence; Z98.890 Other specified postprocedural states
CPT/HCPCS: 43235; 36415; 83880; 85610; J3010

== ENCOUNTER → 2023-07-19 12:19 | Outpatient (BNV) | payer MEDICARE, SELFPAY | PROVIDERS: PCP Internal Medicine; Visit Provider Internal Medicine | DX: K74.69 Other cirrhosis of liver (principal); I85.00 Esophageal varices without bleeding; K76.6 Portal hypertension | CPT/HCPCS: 43235 ==

== ENCOUNTER 2023-07-25 08:37 | Outpatient (REF) | payer MEDICARE, SELFPAY ==
[2023-07-25 11:18] LABS: MANUAL DIFF FLAG NO
[2023-07-25 11:55] LABS: Estimated Average Glucose 88 mg/dL; Hemoglobin A1c % 4.7 % (<6.0)
[2023-07-25 11:57] LABS: Basophils Percent Auto 0.4 % (0-2); Eosinophils Absolute Auto 0.1 X10*3/uL (0.0-0.4); Eosinophils Percent Auto 1.2 % (0-4); Hematocrit 34.9 % (37.0-47.0); Hemoglobin 11.7 g/dl (12.0-16.0); Imm Gran Abs Auto 0.04 X10*3/uL (0.00-0.03); Imm Gran Pct Auto 0.4 % (0.0-0.4); Lymphocytes Absolute Auto 1.8 X10*3/uL (1.2-4.9); Lymphocytes Percent Auto 18.9 % (20-40); Mean Corpuscular HGB Conc 33.5 g/dl (31.0-35.0); Mean Corpuscular Hemoglobin 34.7 pg (27.0-33.0); Mean Corpuscular Volume 103.6 fL (80.0-98.0); Mean Platelet Volume 12.2 fL (9.4-12.3); Monocytes Absolute Auto 0.7 X10*3/uL (0.1-1.2); Monocytes Percent Auto 7.8 % (2-11); Neutrophils Absolute Auto 6.6 x10*3/uL (2.0-8.3); Neutrophils Percent Auto 71.3 % (45-73); Platelet Count 160 X10*3/uL (160-400); Red Blood Count 3.37 X10*6/uL (4.20-5.50); Red Cell Distribution Width 14.6 % (11.0-16.0); White Blood Count 9.3 X10*3/uL (4.8-10.8)
[2023-07-25 12:20] LABS: Alanine Aminotransferase 23 U/L (0-31); Albumin Level 3.5 g/dL (3.5-5.0); Alkaline Phosphatase 90 U/L (39-117); Anion Gap 14 (12-20); Aspartate Amino Transferase 45 U/L (5-31); Bilirubin Total 2.2 mg/dL (0.0-1.0); Blood Urea Nitrogen 33 mg/dL (9-16); Calcium 9.7 mg/dL (8.4-10.2); Carbon Dioxide 24 mmol/L (22-29); Chloride 99 mmol/L (96-108); Estimated Glomerular Filt Rate 31; Glucose Fasting 101 mg/dL (60-99); Potassium 4.3 mmol/L (3.3-5.1); Sodium 133 mmol/L (135-145); Total Protein 7.5 g/dL (6.5-8.0)
== END 2023-07-25 08:38 | disposition home or self-care (01) ==
LOC: HO.HMGCLDS 08:37
PROVIDERS: PCP Internal Medicine; Visit Provider Internal Medicine
DX: K76.7 Hepatorenal syndrome (principal); F10.21 Alcohol dependence, in remission; R73.9 Hyperglycemia, unspecified; E83.42 Hypomagnesemia
CPT/HCPCS: 36415; 80053; 83036; 83735; 85025

== ENCOUNTER 2023-07-26 14:01 | Outpatient (REF) | payer MEDICARE, SELFPAY ==
--- NOTE | ~2023-07-26 | XR_ITS ---
EXAMINATION: XR CHEST CLINICAL INFORMATION: Pneumonia COMPARISON: Previous chest x-ray most recent 06/08/2023 TECHNIQUE: 2 views of the chest were obtained. FINDINGS: The cardiac and mediastinal contours are stable. The lungs are clear. There is no evidence of pneumonia. There is no pleural effusion or pneumothorax. Postsurgical changes to the right breast. Degenerative changes of the thoracic spine. Mild old T12 vertebral body compression fracture appears unchanged. XR/XR chest 2V IMPRESSION: No evidence of pneumonia.
== END 2023-07-26 14:02 | disposition home or self-care (01) ==
LOC: HO.HMGCX 14:01
PROVIDERS: PCP Internal Medicine; Visit Provider Internal Medicine
DX: J18.9 Pneumonia, unspecified organism (principal)
CPT/HCPCS: 71046

== ENCOUNTER 2023-08-03 12:05 | Outpatient (REF) | payer MEDICARE, SELFPAY | END 2023-08-03 12:06 | disposition home or self-care (01) | LOC: HO.LAB 12:05 | PROVIDERS: PCP Internal Medicine; Visit Provider Internal Medicine | DX: R18.8 Other ascites (principal); K74.60 Unspecified cirrhosis of liver; N17.9 Acute kidney failure, unspecified; F10.21 Alcohol dependence, in remission | CPT/HCPCS: 36415; 80048; 99212 ==

== ENCOUNTER 2023-08-03 12:05 | Outpatient (AMB) | payer MEDICARE, SELFPAY ==
--- NOTE | 2023-08-03 12:34 | MHC.OFFVIS ---
Intake Vital Signs 08/03/23 12:36 Height 5 ft 7 in Weight 178 lb 9.191 oz BMI 28.0 BP 110/56 L Blood Pressure Location Lt brachial Position Sitting Pulse 65 Intake Visit Reasons: s/p egd Intake Note: Sherin presents as a follow up egd. CC: No concerns since her procedure - she is feeling in general a lot better. Allergies hydromorphone [From DILAUDID] Allergy (Intermediate, Verified 08/03/23 12:35) hives, itching losartan Allergy (Intermediate, Verified 08/03/23 12:35) Angioedema tramadol [From ULTRAM] Allergy (Intermediate, Verified 08/03/23 12:35) hives,itching HPI HPI Comments History of Present Illness Details 73 YF with COPD, HTN, HFpEF, (EF 55-60% on 03/04/2022), IBS, hx of breast cancer, and hx of alcohol use disorder who is presenting for follow up after recent hospitalisation for ascites. Inpatient consultation 05/27/23: Patient stated that her symptoms began 3-4? weeks ago with edema of her lower extremities.? Pt was seen at [facility] and started on Lasix and dose increased to 40 mg twice daily. Despite increasing her furosemide from 20 mg to 40 mg daily and then 40 mg b.i.d. and wearing compression stockings, patient's symptoms did not improve. Outpatient labs were significant for rapid decline in renal function and she was therefore admitted to the hospital for further management. Underwent albumin IV 100g/day infusion x 3 days with improvement in Cr to 1.5. Baseline appears to be 1.2-1.3. 06/08/23: Pt presents to the office today for follow up, reports shortness of breath has gradually worsened. Notices the girth of the abdomen is unchanged. Has more discomfort in her legs now lilly on walking. Remains abstinent from etOH last drink was on 02/26/23. Continues to be OFF diuretics. Office had called her x 2 to get blood work done however this is still pending. Weight today is 225#. Dry weight appears to be between 218-220 based on review of chart. Has follow up with Renal next week. Also getting another echo done next month. (prev hx of NICM from etOH vs chemo) Previous endoscopy: 03/2021 (Dr Brennan) EGD: gastritis, possible candidal esophagitis vs EoE Colonoscopy: Internal hemorrhoids, diverticular disease 07/19/23: EGD Flat varices. Portal hypertensive gastropathy. Normal duodenum 08/03/23: Seen in office for follow up. Reviewed the results of the EGD and that will need a repeat EGD in 2 years as long as remains sober from etOH. Was encouraged to bring up any relapses to our attention. Pt also mentions blood work done through PCP's office last week. Reveiwed, kidney function seems to have declined compared to before. Cont on spironolactone 100 and lasix 20. Weight today 178#, albeit has also been trying to intentionally lose some weight. [facility] Medical History (Updated 08/03/23 @ 13:07 by Марина Montoya MD) Neuropathy Hx of screening mammography Vitamin B12 deficiency Vitamin D deficiency Annual physical exam Breast CA (~03/01/23) Flank pain, chronic Hx of abdominal pain Excessive drinking of alcohol COPD (chronic obstructive pulmonary disease) Pulmonary nodules Atrial arrhythmia Chronic systolic (congestive) heart failure NICM (nonischemic cardiomyopathy) Cardiac LV ejection fraction of 40-49% Osteoarthritis Rheumatoid arthritis Colonoscopy refused Muscle spasm History of breast cancer in female Chronic GERD Anxiety, generalized Hypertension, essential Surgical History (Updated 07/19/23 @ 13:18 by Eboni Lala) History of esophagogastroduodenoscopy (EGD) H/O colonoscopy History of removal of Port-a-Cath History of hysterectomy History of section H/O right mastectomy Family History Father Non-Hodgkin lymphoma Mother CVD (cardiovascular disease) Brother Lung disease Sister No problems noted. Maternal Grandfather Colon cancer Maternal Grandmother CVD (cardiovascular disease) Paternal Grandfather Unknown family medical history Paternal Grandmother Unknown family medical history Brother No problems noted. Son No problems noted. Son No problems noted. Daughter No problems noted. 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 needs: No Hearing needs: No Vision needs: Yes (wears glasses ) Review of Systems Const All systems reviewed & are unremarkable except as noted in HPI and below Physical Exam Vital Signs: Last Vital Signs Pulse 65 08/03/23 12:36 BP 110/56 L 08/03/23 12:36 BMI result Body Mass Index 28.0 Gen Appear: NAD HEENT: No scleral icterus, mild bitemporal wasting noted Chest: No overt resp distress CVS: Regular S1/S2 no murmurs Abd: soft, nontender, nondistended, Neuro: A/Ox3, no asterixis Assessment & Plan Assessment & Plan (1) Ascites: Code(s): R18.8 - Other ascites (2) Liver cirrhosis: Code(s): K74.60 - Unspecified cirrhosis of liver (3) Alcohol use disorder, severe, in early remission: Code(s): F10.21 - Alcohol dependence, in remission (4) SANDRA (acute kidney injury): Code(s): N17.9 - Acute kidney failure, unspecified Plan Decomp etOH assoc cirrhosis - MELD-Na 21, Child Tracey Class B - ascites controlled on diuretics EtOH use disorder in early remission SANDRA noted on labs 07/25/23 Quit date 02/26/2023. Congratulated pt on continued sobriety. No evidence of volume overload on exam today. In fact based on labs may actually need to de-escalate diuretics given SANDRA. ARBs already discontinued by cardiology. MELD-Na has increased from 18 (05/2023) to 21 on most recent labs however being driven mostly by SANDRA on CKD and hyponatremia. Will get a repeat MELD once SANDRA resolves for true assessment. Plan: - Check BMP today - If Cr continues to be 1.5 or greater, will DC both diuretics and recheck BMP in 3 days - If Cr back to baseline, will discontinue lasix only and cont spironolactone 100 - Pt to weigh herself at least 3 times a week and to call office for weight gain of 5lbs in a week - US Abd for HCC screening due in Nov 2023. Reminder set. - Variceal screening: Next EGD due 06/2025. Of note pt on low dose metoprolol due to PVCs. - No evidence of HE on exam today. - Transplant candidacy to be discussed at next visit after resolution of SANDRA and hyponatremia Follow up 4 weeks Orders: Orders Basic Metabolic Panel Today R18.8 - Other ascites Coding Level of Care Code Est Pt Level 5 (50834) Diagnoses Ascites R18.8 Liver cirrhosis K74.60 Alcohol use disorder, severe, in early remission F10.21 SANDRA (acute kidney injury) N17.9
[2023-08-03 12:36] VITALS: BP 110/56; PULSE 65; BMI 28.0
== END 2023-08-03 13:23 | disposition home or self-care (01) ==
PROVIDERS: PCP Internal Medicine; Visit Provider Internal Medicine
DX: R18.8 Other ascites (principal); K74.60 Unspecified cirrhosis of liver; F10.21 Alcohol dependence, in remission; N17.9 Acute kidney failure, unspecified
CPT/HCPCS: 99213

== ENCOUNTER 2023-08-08 10:58 | Outpatient (REF) | payer MEDICARE, SELFPAY ==
[2023-08-08 13:45] LABS: Anion Gap 14 (12-20); Blood Urea Nitrogen 16 mg/dL (9-16); Calcium 9.6 mg/dL (8.4-10.2); Carbon Dioxide 23 mmol/L (22-29); Chloride 102 mmol/L (96-108); Estimated Glomerular Filt Rate 47; Glucose Random 101 mg/dL (60-115); Potassium 4.2 mmol/L (3.3-5.1); Sodium 135 mmol/L (135-145)
== END 2023-08-08 10:59 | disposition home or self-care (01) ==
LOC: HO.HMGCLDS 10:58
PROVIDERS: PCP Internal Medicine; Visit Provider Internal Medicine
DX: R18.8 Other ascites (principal)
CPT/HCPCS: 36415; 80048

== ENCOUNTER 2023-08-24 08:13 | Outpatient (REF) | payer MEDICARE, SELFPAY ==
[2023-08-24 11:58] LABS: Anion Gap 11 (12-20); Blood Urea Nitrogen 18 mg/dL (9-16); Calcium 9.5 mg/dL (8.4-10.2); Carbon Dioxide 26 mmol/L (22-29); Chloride 106 mmol/L (96-108); Estimated Glomerular Filt Rate 47; Glucose Random 96 mg/dL (60-115); Potassium 4.4 mmol/L (3.3-5.1); Sodium 139 mmol/L (135-145)
== END 2023-08-24 08:14 | disposition home or self-care (01) ==
LOC: HO.HMGCLDS 08:13
PROVIDERS: PCP Internal Medicine; Visit Provider Internal Medicine
DX: R18.8 Other ascites (principal)
CPT/HCPCS: 36415; 80048

== ENCOUNTER 2023-09-05 16:08 | Outpatient (AMB) | payer MEDICARE, SELFPAY ==
--- NOTE | 2023-09-05 16:16 | A.OFFVIS_ITS ---
Intake Vital Signs 09/05/23 16:18 Height 5 ft 7 in Weight 178 lb BMI 27.9 BP 144/58 H Blood Pressure Location Lt brachial Position Sitting Pulse 71 Intake Visit Reasons: follow up Intake Note: Sherin presents in the office as a follow up. CC: She states that she never got the procedure done. Social Insurance Analyst Required: No Allergies hydromorphone [From DILAUDID] Allergy (Intermediate, Verified 09/05/23 16:18) hives, itching losartan Allergy (Intermediate, Verified 09/05/23 16:18) Angioedema tramadol [From ULTRAM] Allergy (Intermediate, Verified 09/05/23 16:18) hives,itching HPI HPI Comments History of Present Illness Details 73 YF with COPD, HTN, HFpEF, (EF 55-60% on 03/04/2022), IBS, hx of breast cancer, and hx of alcohol use disorder who is presenting for follow up after recent hospitalisation for ascites. Inpatient consultation 05/27/23: Patient stated that her symptoms began 3-4? weeks ago with edema of her lower extremities.? Pt was seen at [facility] and started on Lasix and dose increased to 40 mg twice daily. Despite increasing her furosemide from 20 mg to 40 mg daily and then 40 mg b.i.d. and wearing compression stockings, patient's symptoms did not improve. Outpatient labs were significant for rapid decline in renal function and she was therefore admitted to the hospital for further management. Underwent albumin IV 100g/day infusion x 3 days with improvement in Cr to 1.5. Baseline appears to be 1.2-1.3. 06/08/23: Pt presents to the office today for follow up, reports shortness of breath has gradually worsened. Notices the girth of the abdomen is unchanged. Has more discomfort in her legs now lilly on walking. Remains abstinent from etOH last drink was on 02/26/23. Continues to be OFF diuretics. Office had called her x 2 to get blood work done however this is still pending. Weight today is 225#. Dry weight appears to be between 218-220 based on review of chart. Has follow up with Renal next week. Also getting another echo done next month. (prev hx of NICM from etOH vs chemo) Previous endoscopy: 03/2021 (Dr Brennan) EGD: gastritis, possible candidal esophagitis vs EoE Colonoscopy: Internal hemorrhoids, diverticular disease 07/19/23: EGD Flat varices. Portal hypertensive gastropathy. Normal duodenum 08/03/23: Seen in office for follow up. Reviewed the results of the EGD and that will need a repeat EGD in 2 years as long as remains sober from etOH. Was encouraged to bring up any relapses to our attention. Pt also mentions blood work done through PCP's office last week. Reveiwed, kidney function seems to have declined compared to before. Cont on spironolactone 100 and lasix 20. Weight today 178#, albeit has also been trying to intentionally lose some weight. 09/05/23: Here for 4 weeks follow up. Reports feeling good. No abd pain, N,V. Reports good appetite. No fluid accumulation noted for over 2 months. Taking Aldactone 100mg once daily. Renal function from 08/24 good, weight stable at 178#. PFSH Medical History Neuropathy Hx of screening mammography Vitamin B12 deficiency Vitamin D deficiency Annual physical exam Breast CA (~03/01/23) Flank pain, chronic Hx of abdominal pain Excessive drinking of alcohol COPD (chronic obstructive pulmonary disease) Pulmonary nodules Atrial arrhythmia Chronic systolic (congestive) heart failure NICM (nonischemic cardiomyopathy) Cardiac LV ejection fraction of 40-49% Osteoarthritis Rheumatoid arthritis Colonoscopy refused Muscle spasm History of breast cancer in female Chronic GERD Anxiety, generalized Hypertension, essential Surgical History History of esophagogastroduodenoscopy (EGD) H/O colonoscopy History of removal of Port-a-Cath History of hysterectomy History of section H/O right mastectomy Family History Father Non-Hodgkin lymphoma Mother CVD (cardiovascular disease) Brother Lung disease Sister No problems noted. Maternal Grandfather Colon cancer Maternal Grandmother CVD (cardiovascular disease) Paternal Grandfather Unknown family medical history Paternal Grandmother Unknown family medical history Brother No problems noted. Son No problems noted. Son No problems noted. Daughter No problems noted. 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 needs: No Hearing needs: No Vision needs: Yes (wears glasses ) Review of Systems Const All systems reviewed & are unremarkable except as noted in HPI and below Physical Exam Vital Signs: Last Vital Signs Pulse 71 09/05/23 16:18 BP 144/58 H 09/05/23 16:18 BMI result Body Mass Index 27.9 Gen Appear: NAD HEENT: No scleral icterus, Chest: No overt resp distress CVS: Regular S1/S2 no murmurs Abd: soft, nontender, nondistended, Neuro: A/Ox3, no asterixis Assessment & Plan Assessment & Plan (1) Ascites: Code(s): R18.8 - Other ascites (2) Liver cirrhosis: Code(s): K74.60 - Unspecified cirrhosis of liver (3) Alcohol use disorder, severe, in early remission: Code(s): F10.21 - Alcohol dependence, in remission (4) SANDRA (acute kidney injury): Code(s): N17.9 - Acute kidney failure, unspecified Plan Decomp etOH assoc cirrhosis - MELD-Na 21, Child Tracey Class B - ascites controlled on diuretics EtOH use disorder in early remission Quit date 02/26/2023. Congratulated pt on continued sobriety. No evidence of volume overload on exam today. Overall clinically has improved tremendously. Plan: - No evidence of large volume ascites or HE on assessment today - Pt to weigh herself at least 3 times a week and to call office for weight gain of 5lbs in a week - US Abd for HCC screening due in Nov 2023. Ultrasound ordered. - Variceal screening: Next EGD due 06/2025. Of note pt on low dose metoprolol due to PVCs. - Get MELD labs before next visit - Pain control: Avoid NSAIDs. Tylenol ok up to 2g/day. - Transplant candidacy: Reviewed that would recommend at least a consultation at [facility] to start with however pt wishes to discuss this at next visit after getting the next set of MELD labs and US abd. Follow up 3 months Orders: Orders Comprehensive Met. Panel Today K74.60 - Unspecified cirrhosis of liver, R18.8 - Other ascites US abdomen complete 3 Months K74.60 - Unspecified cirrhosis of liver Complete Blood Count no Diff Today K74.60 - Unspecified cirrhosis of liver, R18.8 - Other ascites Prothrombin Time INR Today K74.60 - Unspecified cirrhosis of liver, R18.8 - Other ascites Coding Level of Care Code Est Pt Level 4 (92288) Diagnoses Ascites R18.8 Liver cirrhosis K74.60 Alcohol use disorder, severe, in early remission F10.21 SANDRA (acute kidney injury) N17.9
[2023-09-05 16:18] VITALS: BP 144/58; PULSE 71; BMI 27.9
== END 2023-09-05 16:45 | disposition home or self-care (01) ==
PROVIDERS: PCP Internal Medicine; Visit Provider Internal Medicine
DX: R18.8 Other ascites (principal); K74.60 Unspecified cirrhosis of liver; F10.21 Alcohol dependence, in remission; N17.9 Acute kidney failure, unspecified
CPT/HCPCS: 99214

== ENCOUNTER → 2023-09-05 16:08 | Outpatient (BNVA) | payer MEDICARE, SELFPAY | PROVIDERS: PCP Internal Medicine; Visit Provider Internal Medicine | DX: K74.60 Unspecified cirrhosis of liver (principal); R18.8 Other ascites; F10.21 Alcohol dependence, in remission; N17.9 Acute kidney failure, unspecified | CPT/HCPCS: 99212 ==

== ENCOUNTER 2023-10-10 14:37 | Outpatient (AMB) | payer MEDICARE, SELFPAY ==
[2023-10-10 14:38] VITALS: BP 104/66; PULSE 70; O2SAT 96; BMI 27.6
--- NOTE | 2023-10-10 14:38 | MHC.PC.OV ---
Vital Signs 10/10/23 14:38 Height 5 ft 7 in Weight 176 lb BMI 27.6 BP 104/66 Blood Pressure Location Lt brachial Position Sitting Pulse 70 Pulse Source Pulse Oximeter Pulse Oximetry (%) 96 Oxygen Delivery Method Room Air Intake Visit Reasons: 3 month follow up Intake Note: Pt is here today for 3 months follow up visit. Allergies hydromorphone [From DILAUDID] Allergy (Intermediate, Verified 10/10/23 14:42) hives, itching losartan Allergy (Intermediate, Verified 10/10/23 14:42) Angioedema tramadol [From ULTRAM] Allergy (Intermediate, Verified 10/10/23 14:42) hives,itching Tobacco use date assessed: 10/10/23 HPI 3 month follow up HPI Details Pt presents for f/u liver cirrhosis compensated, COPD, depression, stable on meds. Patient complains of chronic lower back pain and stiffness worse when getting up in the morning. Patient reports bilat lower extremity weakness and occasionally feeling off balance but denies any recent falls PFSH Medical History Neuropathy Hx of screening mammography Vitamin B12 deficiency Vitamin D deficiency Annual physical exam Breast CA (~03/01/23) Flank pain, chronic Hx of abdominal pain Excessive drinking of alcohol COPD (chronic obstructive pulmonary disease) Pulmonary nodules Atrial arrhythmia Chronic systolic (congestive) heart failure NICM (nonischemic cardiomyopathy) Cardiac LV ejection fraction of 40-49% Osteoarthritis Rheumatoid arthritis Colonoscopy refused Muscle spasm History of breast cancer in female Chronic GERD Anxiety, generalized Hypertension, essential Surgical History History of esophagogastroduodenoscopy (EGD) H/O colonoscopy History of removal of Port-a-Cath History of hysterectomy History of section H/O right mastectomy Family History Father Non-Hodgkin lymphoma Mother CVD (cardiovascular disease) Brother Lung disease Sister No problems noted. Maternal Grandfather Colon cancer Maternal Grandmother CVD (cardiovascular disease) Paternal Grandfather Unknown family medical history Paternal Grandmother Unknown family medical history Brother No problems noted. Son No problems noted. Son No problems noted. Daughter No problems noted. 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 Mohit Israel, Krystal Kelsey, Khanh Davis and colleagues, with an educational apple from [employer]. Review of Systems Const All systems reviewed & are unremarkable except as noted in HPI and below Reports no additional complaints Eyes Reports no additional complaints ENT Reports no additional complaints Card Reports no additional complaints GI Reports no additional complaints Reports no additional complaints Musc Reports no additional complaints Physical exam (Primary Care) Vital Signs: Last Vital Signs Pulse 70 10/10/23 14:38 BP 104/66 10/10/23 14:38 Pulse Ox 96 10/10/23 14:38 Oxygen Delivery Method Room Air 10/10/23 14:38 BMI result Body Mass Index 27.6 Tobacco/Smoking Status: Tobacco use Status Tobacco use date assessed 10/10/23 10/10/23 14:42 Patient Tobacco Use Status Former Tobacco user 10/10/23 14:42 Tobacco use type Cigarette 10/10/23 14:42 e-Cigarette/Vaping Use Never Used 10/10/23 14:42 Thrive Assessment: Date of Thrive Assessment Date Thrive assessed 05/28/23 10/10/23 14:42 Const General: no acute distress HENMT Head: Yes normal to inspection Mouth: Normal oral and palatal mucosa present Neck Neck: Yes no lymphadenopathy and Yes supple Resp Effort & Inspection: normal respiratory effort Auscultation: clear to auscultation bilaterally Cardio Rhythm: regular rhythm Heart sounds: S1 normal heart sound present and S2 normal heart sound present GI Inspection: Yes normal to inspection Palpation (GI): Soft to palpation Percussion: Yes normal to percussion Auscultation: normal bowel sounds Back/Spine/Pelvis Other: Paraspinal tenderness in the lower lumbar region, straight leg rising 90 degrees bilaterally. Lower extremities motor strength 4/5 proximal and distal bilaterally Assessment and Plan Assessment & Plan (1) Hepatorenal syndrome: Code(s): K76.7 - Hepatorenal syndrome Plan: Continue spironolactone and beta darryl follow-up with GI, sober for 7 months (2) Hyperglycemia: Code(s): R73.9 - Hyperglycemia, unspecified Plan: ADA diet increase physical activity discussed with the patient. check A1c (3) Hypomagnesemia: Code(s): E83.42 - Hypomagnesemia Plan: check Mg (4) Annual physical exam: Code(s): Z00.00 - Encounter for general adult medical examination without abnormal findings (5) Vitamin D deficiency: Code(s): E55.9 - Vitamin D deficiency, unspecified Plan: Continue vitamin-D (6) Vitamin B12 deficiency: Code(s): E53.8 - Deficiency of other specified B group vitamins (7) COPD (chronic obstructive pulmonary disease): Comment: f/u [facility] Code(s): J44.9 - Chronic obstructive pulmonary disease, unspecified Qualifiers: COPD type: COPD with acute lower respiratory infection Qualified Code(s): J44.0 - Chronic obstructive pulmonary disease with (acute) lower respiratory infection Plan: Continue Trelegy (8) Cardiac LV ejection fraction of 40-49%: Comment: ECHO 03/04/22 f/u [facility] cardiology Code(s): R94.30 - Abnormal result of cardiovascular function study, unspecified Plan: Follow-up with Cardiology, continue metoprolol (9) CKD (chronic kidney disease) stage 3, GFR 30-59 ml/min: Code(s): N18.30 - Chronic kidney disease, stage 3 unspecified Plan: Monitor renal function avoid NSAIDs Orders: Orders Vitamin B12 and Folate 5 Months E83.42 - Hypomagnesemia, I10 - Essential (primary) hypertension, K76.7 - Hepatorenal syndrome, R73.9 - Hyperglycemia, unspecified, Z00.00 - Encounter for general adult medical examination without abnormal findings Vitamin D 25-OH Total 5 Months E53.8 - Deficiency of other specified B group vitamins, E55.9 - Vitamin D deficiency, unspecified, E83.42 - Hypomagnesemia, K76.7 - Hepatorenal syndrome, R73.9 - Hyperglycemia, unspecified, Z00.00 - Encounter for general adult medical examination without abnormal findings Lipid Panel 5 Months E83.42 - Hypomagnesemia, I10 - Essential (primary) hypertension, K76.7 - Hepatorenal syndrome, R73.9 - Hyperglycemia, unspecified, Z00.00 - Encounter for general adult medical examination without abnormal findings Hemoglobin A1c 5 Months E83.42 - Hypomagnesemia, I10 - Essential (primary) hypertension, K76.7 - Hepatorenal syndrome, R73.9 - Hyperglycemia, unspecified, Z00.00 - Encounter for general adult medical examination without abnormal findings Comprehensive [place]. Panel Fast 5 Months E83.42 - Hypomagnesemia, I10 - Essential (primary) hypertension, K76.7 - Hepatorenal syndrome, R73.9 - Hyperglycemia, unspecified, Z00.00 - Encounter for general adult medical examination without abnormal findings Complete Blood Count Auto Diff 5 Months E83.42 - Hypomagnesemia, I10 - Essential (primary) hypertension, K76.7 - Hepatorenal syndrome, R73.9 - Hyperglycemia, unspecified, Z00.00 - Encounter for general adult medical examination without abnormal findings TSH reflex Free T4 5 Months E83.42 - Hypomagnesemia, I10 - Essential (primary) hypertension, K76.7 - Hepatorenal syndrome, R73.9 - Hyperglycemia, unspecified, Z00.00 - Encounter for general adult medical examination without abnormal findings Magnesium 5 Months E83.42 - Hypomagnesemia Coding Level of Care Code Est Pt Level 4 (97149) Diagnoses Hepatorenal syndrome K76.7 Hyperglycemia R73.9 Hypomagnesemia E83.42 Annual physical exam Z00.00 Vitamin D deficiency E55.9 Vitamin B12 deficiency E53.8 Chronic obstructive pulmonary disease with acute lower respiratory infection J44.0 COPD type: COPD with acute lower respiratory infection Cardiac LV ejection fraction of 40-49% R94.30 CKD (chronic kidney disease) stage 3, GFR 30-59 ml/min N18.30
== END 2023-10-10 15:31 | disposition home or self-care (01) ==
LOC: HO.HMGC 14:37
PROVIDERS: PCP Internal Medicine; Visit Provider Internal Medicine
DX: K76.7 Hepatorenal syndrome (principal); J44.0 Chronic obstructive pulmonary disease with (acute) lower respiratory infection; N18.30 Chronic kidney disease, stage 3 unspecified; R73.9 Hyperglycemia, unspecified; E83.42 Hypomagnesemia; E55.9 Vitamin D deficiency, unspecified; E53.8 Deficiency of other specified B group vitamins; R94.30 Abnormal result of cardiovascular function study, unspecified
CPT/HCPCS: 99214

== ENCOUNTER → 2023-10-31 10:39 | Outpatient (BNVA) | payer MEDICARE, SELFPAY | PROVIDERS: PCP Internal Medicine; Visit Provider Internal Medicine | DX: I42.8 Other cardiomyopathies (principal); I11.0 Hypertensive heart disease with heart failure; I50.22 Chronic systolic (congestive) heart failure; I49.8 Other specified cardiac arrhythmias; R94.31 Abnormal electrocardiogram [ECG] [EKG]; F10.10 Alcohol abuse, uncomplicated | CPT/HCPCS: 99212 ==

== ENCOUNTER 2023-10-31 10:43 | Outpatient (AMB) | payer MEDICARE, SELFPAY ==
--- NOTE | 2023-10-31 10:54 | MHC.OFFVIS ---
Intake Vital Signs 10/31/23 10:55 Height 5 ft 7 in Weight 176 lb BMI 27.6 BP 120/62 Blood Pressure Location Lt brachial Position Sitting Pulse 66 Pulse Source Pulse Oximeter Intake Visit Reasons: R/S 4 month follow up Clinical Nurse Specialist Required: No Allergies hydromorphone [From DILAUDID] Allergy (Intermediate, Verified 10/31/23 10:56) hives, itching losartan Allergy (Intermediate, Verified 10/31/23 10:56) Angioedema tramadol [From ULTRAM] Allergy (Intermediate, Verified 10/31/23 10:56) hives,itching Medication List - Last Reconciled 10/31/23 by Francisco Langford MD albuterol sulfate 90 mcg/actuation 1 puff inhalation QID PRN aspirin 81 mg PO DAILY cholecalciferol (vitamin D3) 50 mcg PO DAILY fluoxetine 40 mg PO DAILY zfhqpvogzxn-kslmqysuq-iywvqejo 200-62.5-25 mcg (Trelegy Ellipta) 1 inh inhalation DAILY 30 days gabapentin 300 mg PO BID magnesium oxide 400 mg PO DAILY metoprolol succinate ER 25 mg PO DAILY omeprazole 20 mg PO DAILY spironolactone 100 mg PO DAILY vitamin B complex (B Complex-Vitamin B12 tablet) 1 tab PO DAILY HPI HPI Comments History of Present Illness Details Sherin returns for follow-up regarding cardiomyopathy. She has a history of nonischemic cardiomyopathy. Most of her testing was in [facility] where she has lived before. At that time, per patient, EF was about 40% or so. Few months ago, she got admitted for cirrhosis. It seems that she was admitted to hospital with increasing leg swelling abdominal swelling. Then she was diagnosed with ETOH/WILLIAM cirrhosis/ascites and had paracentesis. Negative for SBP. Also had SANDRA. Then it seems diuretics were stopped. Improvement in creatinine. Then she was discharged home. Seems she was also on amlodipine that was stopped as the blood pressure okay. Additionally, no longer on valsartan either. She states it is because of allergic reaction. Overall, doing good. No new complaints. With regard to alcohol, she states that he has not had any in the last several months. [facility] Medical History Neuropathy Hx of screening mammography Vitamin B12 deficiency Vitamin D deficiency Annual physical exam Breast CA (~03/01/23) Flank pain, chronic Hx of abdominal pain Excessive drinking of alcohol COPD (chronic obstructive pulmonary disease) Pulmonary nodules Atrial arrhythmia Chronic systolic (congestive) heart failure NICM (nonischemic cardiomyopathy) Cardiac LV ejection fraction of 40-49% Osteoarthritis Rheumatoid arthritis Colonoscopy refused Muscle spasm History of breast cancer in female Chronic GERD Anxiety, generalized Hypertension, essential Surgical History History of esophagogastroduodenoscopy (EGD) H/O colonoscopy History of removal of Port-a-Cath History of hysterectomy History of section H/O right mastectomy Family History Father Non-Hodgkin lymphoma Mother CVD (cardiovascular disease) Brother Lung disease Sister No problems noted. Maternal Grandfather Colon cancer Maternal Grandmother CVD (cardiovascular disease) Paternal Grandfather Unknown family medical history Paternal Grandmother Unknown family medical history Brother No problems noted. Son No problems noted. Son No problems noted. Daughter No problems noted. 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 needs: No Hearing needs: No Vision needs: Yes (wears glasses ) Review of Systems ENT Reports dizziness Card Denies chest pain, Denies chest pain at rest, Denies chest pain with activity, Denies rapid heart rate, Denies pedal edema, Denies edema, Denies leg edema, Denies lightheadedness, Denies palpitations, Denies dyspnea, Denies dyspnea on exertion and Denies orthopnea Resp Denies cough, Denies dyspnea and Denies dyspnea on exertion GI Denies hematochezia and Denies change in stool character Musc Denies abnormal gait, Reports limited range of motion, Reports muscle cramps, Denies muscle weakness, Denies numbness, Denies radiating pain into limb, Denies stiffness and Denies tingling Neuro Denies abnormal gait, Reports dizziness, Denies numbness and Denies tingling Endo Denies palpitations Physical Exam Vital Signs: Last Vital Signs Pulse 66 10/31/23 10:55 BP 120/62 10/31/23 10:55 BMI result Body Mass Index 27.6 Const General: comfortable and no acute distress Orientation/consciousness: patient oriented x3 HEENT Other: Unremarkable Head: Yes normal to inspection Neck Neck: Yes normal visual inspection Chest Chest palpation & inspection: normal inspection of the chest Resp Auscultation: clear to auscultation bilaterally Cardio Palpation: normal PMI Heart sounds: S1 normal heart sound present, S2 normal heart sound present, no gallops, no murmurs and no rubs GI Palpation (GI): Soft to palpation Back/Spine/Pelvis Other: unremarkable Skin General skin exam: no rashes or lesions noted Neuro General: patient oriented x3 Extrem General: Yes normal to inspection Psych Mental Status: mental status grossly normal Assessment & Plan Assessment & Plan (1) NICM (nonischemic cardiomyopathy): Comment: f/u [facility] cadiology Code(s): I42.8 - Other cardiomyopathies Plan: Prior cardiac catheterization from 2017 showed normal coronary arteries. At that time, LVEF on left ventriculogram was about 40%. Echocardiogram from 2020 with LVEF of 35-40%. In the most recent echocardiogram, LVEF 55-60% with moderate diastolic dysfunction. Possibilities include alcoholic cardiomyopathy versus chemotherapy induced cardiomyopathy versus others. For medications, only on metoprolol. No longer on losartan. She states that was stopped because of allergic reaction with swelling in her face. Not able to afford Entresto in the past. No new changes made today. (2) Chronic systolic (congestive) heart failure: Code(s): I50.22 - Chronic systolic (congestive) heart failure Plan: As above, LVEF seems recovered. (3) Atrial arrhythmia: Code(s): I49.8 - Other specified cardiac arrhythmias Plan: She has supraventricular ventricular ectopy. Likely all from some combination of cardiomyopathy, excessive alcohol history. May remain on beta-blockers. In the past, she has had cardiac event monitoring. (4) Excessive drinking of alcohol: Code(s): F10.10 - Alcohol abuse, uncomplicated Plan: Per patient, has not had any alcohol in months. (5) Hypertension, essential: Code(s): I10 - Essential (primary) hypertension Plan: Off amlodipine. Also off losartan. Seems stable. (6) Prolonged QT interval: Code(s): R94.31 - Abnormal electrocardiogram [ECG] [EKG] Plan: Has been noticing previous EKG. Avoid QT prolonging drugs. Coding Level of Care Code Est Pt Level 4 (84831) Diagnoses NICM (nonischemic cardiomyopathy) I42.8 Chronic systolic (congestive) heart failure I50.22 Atrial arrhythmia I49.8 Excessive drinking of alcohol F10.10 Hypertension, essential I10 Prolonged QT interval R94.31
[2023-10-31 10:55] VITALS: BP 120/62; PULSE 66; BMI 27.6
== END 2023-10-31 11:12 | disposition home or self-care (01) ==
PROVIDERS: PCP Internal Medicine; Visit Provider Internal Medicine
DX: I42.8 Other cardiomyopathies (principal); I50.22 Chronic systolic (congestive) heart failure; I49.8 Other specified cardiac arrhythmias; F10.10 Alcohol abuse, uncomplicated; I10 Essential (primary) hypertension; R94.31 Abnormal electrocardiogram [ECG] [EKG]
CPT/HCPCS: 99214

== ENCOUNTER 2023-11-21 14:34 | Outpatient (AMB) | payer MEDICARE, SELFPAY ==
[2023-11-21 15:38] VITALS: BP 112/60; PULSE 69; TEMP 36.2; O2SAT 96; BMI 27.6
--- NOTE | 2023-11-21 15:38 | MHC.OFFWIV ---
Intake Vital Signs 11/21/23 15:38 Height 5 ft 7 in Weight 176 lb BMI 27.6 BP 112/60 Blood Pressure Location Lt brachial Position Sitting Pulse 69 Pulse Source Pulse Oximeter Temp 97.2 F Temp Source Temporal Artery Scan Pulse Oximetry (%) 96 Intake Visit Reasons: EST/ ear cleaning for hearing aids(lobby) Intake Note: pt is here today for ear cleaning for hearing aids Patient Tobacco Use Status: Former Tobacco user Quit Date: 1994 Allergies hydromorphone [From DILAUDID] Allergy (Intermediate, Verified 11/21/23 15:39) hives, itching losartan Allergy (Intermediate, Verified 11/21/23 15:39) Angioedema tramadol [From ULTRAM] Allergy (Intermediate, Verified 11/21/23 15:39) hives,itching Do you need a note to return to daycare/school/sports/work: No PFSH Medical History Neuropathy Hx of screening mammography Vitamin B12 deficiency Vitamin D deficiency Annual physical exam Breast CA (~03/01/23) Flank pain, chronic Hx of abdominal pain Excessive drinking of alcohol COPD (chronic obstructive pulmonary disease) Pulmonary nodules Atrial arrhythmia Chronic systolic (congestive) heart failure NICM (nonischemic cardiomyopathy) Cardiac LV ejection fraction of 40-49% Osteoarthritis Rheumatoid arthritis Colonoscopy refused Muscle spasm History of breast cancer in female Chronic GERD Anxiety, generalized Hypertension, essential Surgical History History of esophagogastroduodenoscopy (EGD) H/O colonoscopy History of removal of Port-a-Cath History of hysterectomy History of section H/O right mastectomy Family History Father Non-Hodgkin lymphoma Mother CVD (cardiovascular disease) Brother Lung disease Sister No problems noted. Maternal Grandfather Colon cancer Maternal Grandmother CVD (cardiovascular disease) Paternal Grandfather Unknown family medical history Paternal Grandmother Unknown family medical history Brother No problems noted. Son No problems noted. Son No problems noted. Daughter No problems noted. 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
--- NOTE | 2023-11-21 16:01 | A.OFFVIS_ITS ---
Intake Vital Signs 11/21/23 15:38 11/21/23 16:04 Height 5 ft 7 in Weight 176 lb BMI 27.6 27.6 BP 112/60 Blood Pressure Location Lt brachial Position Sitting Pulse 69 Pulse Source Pulse Oximeter Temp 97.2 F Temp Source Temporal Artery Scan Pulse Oximetry (%) 96 Intake Visit Reasons: EST/ ear cleaning for hearing aids(lobby) Allergies hydromorphone [From DILAUDID] Allergy (Intermediate, Verified 11/21/23 15:39) hives, itching losartan Allergy (Intermediate, Verified 11/21/23 15:39) Angioedema tramadol [From ULTRAM] Allergy (Intermediate, Verified 11/21/23 15:39) hives,itching HPI HPI Comments History of Present Illness Details Patient presents to the walk-in today with complaints of left ear pain She was being evaluated for hearing aids and will knee attempted to fit her for them she noticed pain to left ear Denies any recent URI symptoms Denies drainage from the ear Denies any new hearing loss or changes, tinnitus, dizziness, headache PFSH Medical History Neuropathy Hx of screening mammography Vitamin B12 deficiency Vitamin D deficiency Annual physical exam Breast CA (~03/01/23) Flank pain, chronic Hx of abdominal pain Excessive drinking of alcohol COPD (chronic obstructive pulmonary disease) Pulmonary nodules Atrial arrhythmia Chronic systolic (congestive) heart failure NICM (nonischemic cardiomyopathy) Cardiac LV ejection fraction of 40-49% Osteoarthritis Rheumatoid arthritis Colonoscopy refused Muscle spasm History of breast cancer in female Chronic GERD Anxiety, generalized Hypertension, essential Surgical History History of esophagogastroduodenoscopy (EGD) H/O colonoscopy History of removal of Port-a-Cath History of hysterectomy History of section H/O right mastectomy Family History Father Non-Hodgkin lymphoma Mother CVD (cardiovascular disease) Brother Lung disease Sister No problems noted. Maternal Grandfather Colon cancer Maternal Grandmother CVD (cardiovascular disease) Paternal Grandfather Unknown family medical history Paternal Grandmother Unknown family medical history Brother No problems noted. Son No problems noted. Son No problems noted. Daughter No problems noted. 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 Answers questions appropriately. Fully engaged in examination. Skin: warm, dry, intact HEENT: Normocephalic. Hearing intact. Left TM erythematous, cloudy. Right TM normal to visual inspection. Cardiac: External chest normal in appearance. Respiratory: No cough, audible wheezing or stridor. Abdomen: without gross distension. MS: No obvious swelling or deformities. Neurological: Oriented to person, place, time and situation. Thought process intact. Psychiatric: Appropriate mood and affect. Good judgment and insight. Assessment & Plan Assessment & Plan (1) Left otitis media: Code(s): H66.92 - Otitis media, unspecified, left ear Plan presented to walkin today with complaints of left ear pain Augmentin DS BID for 7 days. Drink plenty of fluids, avoid getting anything in the ear, tylenol/motrin as needed. All questions and concerns were addressed during the visit, patient agrees with the plan. Follow up with pcp or in walkin for any new or worsening symptoms. Medications: New amoxicillin-pot clavulanate 875-125 mg 1 tab PO BID 14 tabs 0RF Quality Reporting (2019) Adult ([facility] 138//69) Body Mass Index: 27.6 Coding Level of Care Code Est Pt Level 4 (17430) Diagnoses Left otitis media H66.92
[2023-11-21 16:04] VITALS: BMI 27.6
== END 2023-11-21 16:53 | disposition home or self-care (01) ==
PROVIDERS: PCP Internal Medicine; Visit Provider Registered Nurse Emergency
DX: H66.92 Otitis media, unspecified, left ear (principal)
CPT/HCPCS: 99213

== ENCOUNTER 2023-11-30 08:02 | Outpatient (REF) | payer MEDICARE, SELFPAY ==
--- NOTE | ~2023-11-30 | US_ITS ---
EXAMINATION: US ABDOMEN COMPLETE CLINICAL INFORMATION: Unspecified cirrhosis of liver. COMPARISON: Ultrasound abdomen complete 05/26/2023. Renal ultrasound 05/25/2023. CT abdomen and pelvis 02/06/2023. X-ray abdomen 11/04/2021. TECHNIQUE: Real-time imaging of the abdominal viscera. FINDINGS: PANCREAS: Within or adjacent to the pancreatic head, a 1.6 x 1.4 x 1.1 cm simple cyst is seen. No solid mass is seen. There is no focal pancreatic enlargement ductal dilatation ABDOMINAL AORTA: The proximal, mid, and distal segments are normal in caliber. INFERIOR VENA CAVA: Visualized portions are normal. LIVER: The liver is normal in size. There is a lobulated contour. There is diffuse increased liver parenchymal echogenicity. No focal hepatic lesion. There is no intrahepatic biliary duct dilatation seen. GALLBLADDER: The gallbladder wall thickness is 8 mm. The gallbladder is physiologically distended without evidence of stones, sludge, polyps, or pericholecystic fluid. COMMON BILE DUCT: Normal in caliber measuring 0.3 cm in diameter. RIGHT KIDNEY: Normal. No hydronephrosis. No renal calculi or focal parenchymal lesions. The kidney measures 10.5 cm in maximum dimension. LEFT KIDNEY: Normal. No hydronephrosis. No renal calculi or focal parenchymal lesions. The kidney measures 10.7 cm in maximum dimension. SPLEEN: There are benign, calcified granulomas. The spleen measures 14.9 cm in maximum dimension. FREE FLUID: There is a small amount of ascites. US/US abdomen complete IMPRESSION: 1. Consistent with the provided history of cirrhosis, there is a lobulated hepatic contour and increased hepatic echotexture. No focal hepatic mass or intrahepatic biliary ductal dilatation is seen. 2. There is interim appearance of a 1.6 cm benign, simple cyst within or adjacent to the pancreatic head. Recommend further evaluation with CT or MRI (hepatic mass protocol). 3. The gallbladder wall measures 8 mm, raising the possibility of acalculous cholecystitis. This is a stable finding from 05/26/2023, and it may be related to chronic ascites. 4. Presently, there is mild ascites. 5. There is splenomegaly.
[2023-11-30 09:45] LABS: Hematocrit 37.6 % (37.0-47.0); Hemoglobin 12.5 g/dl (12.0-16.0); Mean Corpuscular HGB Conc 33.2 g/dl (31.0-35.0); Mean Corpuscular Volume 102.2 fL (80.0-98.0); Mean Platelet Volume 11.1 fL (9.4-12.3); Platelet Count 198 X10*3/uL (160-400); Red Blood Count 3.68 X10*6/uL (4.20-5.50); Red Cell Distribution Width 14.2 % (11.0-16.0); White Blood Count 9.5 X10*3/uL (4.8-10.8)
[2023-11-30 09:55] LABS: INTERNATIONAL NORM RATIO 1.4 (0.9-1.1)
[2023-11-30 10:20] LABS: Alanine Aminotransferase 16 U/L (0-31); Alkaline Phosphatase 90 U/L (39-117); Anion Gap 13 (12-20); Aspartate Amino Transferase 35 U/L (5-31); Bilirubin Total 2.1 mg/dL (0.0-1.0); Blood Urea Nitrogen 17 mg/dL (9-16); Calcium 9.4 mg/dL (8.4-10.2); Carbon Dioxide 24 mmol/L (22-29); Chloride 104 mmol/L (96-108); Estimated Glomerular Filt Rate 42; Glucose Random 100 mg/dL (60-115); Potassium 4.6 mmol/L (3.3-5.1); Sodium 136 mmol/L (135-145); Total Protein 6.8 g/dL (6.5-8.0)
== END 2023-11-30 08:03 | disposition home or self-care (01) ==
LOC: HO.US 08:02
PROVIDERS: PCP Internal Medicine; Visit Provider Internal Medicine
DX: K74.60 Unspecified cirrhosis of liver (principal); R18.8 Other ascites
CPT/HCPCS: 36415; 76700; 80053; 85027; 85610

== ENCOUNTER 2023-12-05 13:56 | Outpatient (REF) | payer MEDICARE, SELFPAY | END 2023-12-05 13:57 | disposition home or self-care (01) | LOC: HO.LAB 13:56 | PROVIDERS: PCP Internal Medicine; Visit Provider Internal Medicine | DX: K74.60 Unspecified cirrhosis of liver (principal); K76.89 Other specified diseases of liver; R19.7 Diarrhea, unspecified; R18.8 Other ascites; K76.82 Hepatic encephalopathy; F10.21 Alcohol dependence, in remission; N17.9 Acute kidney failure, unspecified | CPT/HCPCS: 99212 ==

== ENCOUNTER 2023-12-05 13:59 | Outpatient (AMB) | payer MEDICARE, SELFPAY ==
[2023-12-05 14:02] VITALS: BP 108/49; PULSE 73; BMI 25.3
--- NOTE | 2023-12-05 14:02 | A.OFFVIS_ITS ---
Intake Vital Signs 12/05/23 14:02 Height 5 ft 7 in Weight 161 lb 6 oz BMI 25.3 BP 108/49 L Blood Pressure Location Rt brachial Position Sitting Pulse 73 Intake Visit Reasons: 3 month follow up Intake Note: Patient presents to in office visit today in 3 months follow up of liver cirrhosis. CC: Patient following up after having labs and US of the abdomen done. Patient states she is feeling lousy and for the last 3 days she has being having GI episodes and an upset stomach. She states right now I just pooped referring to fecal incontinence. Per patient she has only had a cup of tea and some water today. Allergies hydromorphone [From DILAUDID] Allergy (Intermediate, Verified 12/05/23 14:12) hives, itching losartan Allergy (Intermediate, Verified 12/05/23 14:12) Angioedema tramadol [From ULTRAM] Allergy (Intermediate, Verified 12/05/23 14:12) hives,itching HPI HPI Comments History of Present Illness Details 73 YF with COPD, HTN, HFpEF, (EF 55-60% on 03/04/2022), IBS, hx of breast cancer, and hx of alcohol use disorder who is presenting for follow up. Inpatient consultation 05/27/23: Patient stated that her symptoms began 3-4? weeks ago with edema of her lower extremities.? Pt was seen at [facility] and started on Lasix and dose increased to 40 mg twice daily. Despite increasing her furosemide from 20 mg to 40 mg daily and then 40 mg b.i.d. and wearing compression stockings, patient's symptoms did not improve. Outpatient labs were significant for rapid decline in renal function and she was therefore admitted to the hospital for further management. Underwent albumin IV 100g/day infusion x 3 days with improvement in Cr to 1.5. Baseline appears to be 1.2-1.3. 06/08/23: Pt presents to the office today for follow up, reports shortness of breath has gradually worsened. Notices the girth of the abdomen is unchanged. Has more discomfort in her legs now lilly on walking. Remains abstinent from etOH last drink was on 02/26/23. Continues to be OFF diuretics. Office had called her x 2 to get blood work done however this is still pending. Weight today is 225#. Dry weight appears to be between 218-220 based on review of chart. Has follow up with Renal next week. Also getting another echo done next month. (prev hx of NICM from etOH vs chemo) Previous endoscopy: 03/2021 (Dr Brennan) EGD: gastritis, possible candidal esophagitis vs EoE Colonoscopy: Internal hemorrhoids, diverticular disease 07/19/23: EGD Flat varices. Portal hypertensive gastropathy. Normal duodenum 08/03/23: Seen in office for follow up. Reviewed the results of the EGD and that will need a repeat EGD in 2 years as long as remains sober from etOH. Was encouraged to bring up any relapses to our attention. Pt also mentions blood work done through PCP's office last week. Reveiwed, kidney function seems to have declined compared to before. Cont on spironolactone 100 and lasix 20. Weight today 178#, albeit has also been trying to intentionally lose some weight. 09/05/23: Here for 4 weeks follow up. Reports feeling good. No abd pain, N,V. Reports good appetite. No fluid accumulation noted for over 2 months. Taking Aldactone 100mg once daily. Renal function from 08/24 good, weight stable at 178#. 12/05/23: Reports having significant diarrhea for the past 3 days with abd cramping and incontinence. Was on Augmentin for suspected otitis up till a week ago. Appetite is also down with this and feels more fatigued. Also reports feeling foggy and inattentive, having trouble concentrating. Current meds: Spironolactone 100 Metoprolol 50 once daily mag oxide [facility] Medical History Neuropathy Hx of screening mammography Vitamin B12 deficiency Vitamin D deficiency Annual physical exam Breast CA (~03/01/23) Flank pain, chronic Hx of abdominal pain Excessive drinking of alcohol COPD (chronic obstructive pulmonary disease) Pulmonary nodules Atrial arrhythmia Chronic systolic (congestive) heart failure NICM (nonischemic cardiomyopathy) Cardiac LV ejection fraction of 40-49% Osteoarthritis Rheumatoid arthritis Colonoscopy refused Muscle spasm History of breast cancer in female Chronic GERD Anxiety, generalized Hypertension, essential Surgical History History of esophagogastroduodenoscopy (EGD) H/O colonoscopy History of removal of Port-a-Cath History of hysterectomy History of section H/O right mastectomy Family History Father Non-Hodgkin lymphoma Mother CVD (cardiovascular disease) Brother Lung disease Sister No problems noted. Maternal Grandfather Colon cancer Maternal Grandmother CVD (cardiovascular disease) Paternal Grandfather Unknown family medical history Paternal Grandmother Unknown family medical history Brother No problems noted. Son No problems noted. Son No problems noted. Daughter No problems noted. 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 Consistent with the provided history of cirrhosis, there is a lobulated hepatic contour and increased hepatic echotexture. No focal hepatic mass or intrahepatic biliary ductal dilatation is seen. 2. There is interim appearance of a 1.6 cm benign, simple cyst within or adjacent to the pancreatic head. Recommend further evaluation with CT or MRI (hepatic mass protocol). 3. The gallbladder wall measures 8 mm, raising the possibility of acalculous cholecystitis. This is a stable finding from 05/26/2023, and it may be related to chronic ascites. 4. Presently, there is mild ascites. 5. There is splenomegaly. Assessment & Plan Assessment & Plan (1) Ascites: Code(s): R18.8 - Other ascites (2) Hepatic encephalopathy: Code(s): K76.82 - Hepatic encephalopathy (3) Liver cirrhosis: Code(s): K74.60 - Unspecified cirrhosis of liver (4) Alcohol use disorder, severe, in early remission: Code(s): F10.21 - Alcohol dependence, in remission (5) SANDRA (acute kidney injury): Code(s): N17.9 - Acute kidney failure, unspecified (6) Liver cyst: Code(s): K76.89 - Other specified diseases of liver (7) Acute diarrhea: Code(s): R19.7 - Diarrhea, unspecified Plan #Acute diarrhea #Decomp etOH assoc cirrhosis - MELD-Na 18, Child Tracey Class B - ascites controlled on diuretics - Hepatic encephalopathy EtOH use disorder in early remission Will need to r/o CDI, other ddx include antibiotic related diarrhea. Checking stool studies as below. Suspect may be contributing to HE from dehydration, will reduce diuretics. Quit date 02/26/2023. Congratulated pt on continued sobriety. No evidence of volume overload on exam today. Plan: - Stool test for CDiff and GI panel - SKIP spironolactone today and reduce to 75mg from tomorrow - Since unable to Rx lactulose due to ongoing diarrhea, will initiate PA for rifaximin 550 BID - Discontinue mag oxide - No evidence of large volume ascites on assessment toda - Liver US with 1.6 cm ??hepatic cyst. MRI liver protocol ordered for evaluation. - Variceal screening: Next EGD due 06/2025. Of note pt on low dose metoprolol due to PVCs. - Pain control: Avoid NSAIDs. Tylenol ok up to 2g/day. - Transplant candidacy: Reviewed that would recommend at least a consultation at [facility] to start with however pt wishes to discuss this at next visit after getting the next set of MELD labs and US abd. Follow up 4 weeks Orders: Orders MR abdomen wo/w con 12/05/23 K74.60 - Unspecified cirrhosis of liver, K76.89 - Other specified diseases of liver GI Panel 12/05/23 R19.7 - Diarrhea, unspecified CDiff Gene PCR 12/05/23 R19.7 - Diarrhea, unspecified Medications: New spironolactone 75 mg (1.5 x 50 mg) PO DAILY 90 days 135 tabs 0RF psyllium husk mix into at least 8 oz of water or juice before administering 1 tbsp PO DAILY 480 grams 0RF rifaximin 550 mg PO BID 30 days 60 tabs 3RF K76.82 - Hepatic encephalopathy Discontinued magnesium oxide Discontinued Reason: Doctor's Order 400 mg PO DAILY 30 tabs 1RF Patient Instructions: 1. Pls get stool testing done for diarrhea 2. Take fiber, you can add 1 tbsp of psyllium to water or yogurt 3. Keep yourself hydrated 4. Skip spironolactone today and from tomorrow DECREASE spironolactone to 75 mg 5. STOP mag oxide 6. Start Rifaximin 550mg twice a day - this should help with fogginess and concentration 7. We are also ordering an MRI to better evaluate the spot on your liver Coding Level of Care Code Est Pt Level 5 (97387) Diagnoses Ascites R18.8 Hepatic encephalopathy K76.82 Liver cirrhosis K74.60 Alcohol use disorder, severe, in early remission F10.21 SANDRA (acute kidney injury) N17.9 Liver cyst K76.89 Acute diarrhea R19.7
== END 2023-12-05 14:42 | disposition home or self-care (01) ==
PROVIDERS: PCP Internal Medicine; Visit Provider Internal Medicine
DX: R19.7 Diarrhea, unspecified (principal); K74.60 Unspecified cirrhosis of liver; R18.8 Other ascites; K76.82 Hepatic encephalopathy; F10.21 Alcohol dependence, in remission; N17.9 Acute kidney failure, unspecified; K76.89 Other specified diseases of liver
CPT/HCPCS: 99214

== ENCOUNTER 2023-12-27 11:18 | Outpatient (REF) | payer MEDICARE, SELFPAY ==
--- NOTE | ~2023-12-27 | MR_ITS ---
EXAMINATION: MR ABDOMEN WITHOUT AND WITH CONTRAST CLINICAL INFORMATION: Liver disease COMPARISON: Abdominal ultrasound 11/30/[address] abdomen and pelvis 02/06/2023 TECHNIQUE: MRI of the abdomen before and after the IV administration of 7 mL of Gadavist was obtained using routine sequences. FINDINGS: LUNG BASES: Right breast prosthesis. KIDNEYS AND URETERS: Unremarkable. GALLBLADDER: Unremarkable. LIVER AND BILIARY TREE: Nodular hepatic contour compatible with cirrhosis. Evaluation for hepatic observations is significantly limited by motion degradation however there is a questionable 1.9 cm observation in hepatic segment 4 with washout on delayed phase imaging without arterial phase hyperenhancement or capsular enhancement, LI-RADS 3. No intra or extrahepatic biliary duct dilatation. PANCREAS: A 2.1 cm cyst in the pancreatic head. No main pancreatic duct communication. No solid components or pancreatic duct dilatation. SPLEEN: Spleen measures 13.4 cm in span which is mildly enlarged. Incidentally noted simple splenic cyst. ADRENAL GLANDS: Unremarkable GASTROINTESTINAL TRACT: Unremarkable. LYMPH NODES: No lymphadenopathy. VASCULAR: Unremarkable ABDOMINAL WALL: Unremarkable. OSSEOUS STRUCTURES: Multiple degenerative disc disease with multilevel at least mild canal stenosis. Stable L1 wedge compression deformity with approximately 50% height loss. OTHER: Small volume ascites. MR/MR abdomen wo/w con IMPRESSION: 1. Evaluation for hepatic observations is significantly limited by motion degradation however there is a questionable 1.9 cm observation in hepatic segment 4 with washout on delayed phase imaging without arterial phase hyperenhancement or capsular enhancement, LI-RADS 3. Recommend 3-6 month follow-up MR abdomen. 2. A 2.1 cm cyst in the pancreatic head. No communication with the main pancreatic duct or high risk stigmata. Recommend 6 month follow-up contrast enhanced MRI/MRCP or GI referral for consideration of endoscopic ultrasound and fine-needle aspiration. 3. Cirrhosis with sequelae of portal hypertension including small volume ascites and mild splenomegaly. 4. Stable L1 wedge compression deformity with approximately 50% height loss.
[2023-12-27] MEDS: gadobutroL 7.5 ML VIAL IVPUSH (12:48)
== END 2023-12-27 11:19 | disposition home or self-care (01) ==
LOC: HO.MRI 11:18
PROVIDERS: PCP Internal Medicine; Visit Provider Internal Medicine
DX: K76.89 Other specified diseases of liver (principal); K74.60 Unspecified cirrhosis of liver
CPT/HCPCS: 74183; A9585

== ENCOUNTER 2024-01-13 13:26 | Outpatient (AMB) | payer MEDICARE, SELFPAY ==
--- NOTE | 2024-01-13 13:28 | A.OFFVIS_ITS ---
Intake Vital Signs 01/13/24 13:30 Height 5 ft 7 in Weight 164 lb BMI 25.7 BP 117/56 L Blood Pressure Location Lt brachial Position Sitting Pulse 65 Intake Visit Reasons: f/u acute kidney injury Intake Note: Sherin presents in the office as a follow up kidney injury. CC: She is just having concerns at the fact there is a lesion on her liver. Advertising Agency Manager Required: No Allergies hydromorphone [From DILAUDID] Allergy (Intermediate, Verified 01/13/24 13:32) hives, itching losartan Allergy (Intermediate, Verified 01/13/24 13:32) Angioedema tramadol [From ULTRAM] Allergy (Intermediate, Verified 01/13/24 13:32) hives,itching HPI HPI Comments History of Present Illness Details 73 YF with COPD, HTN, HFpEF, (EF 55-60% on 03/04/2022), IBS, hx of breast cancer, and hx of alcohol use disorder who is presenting for follow up. Inpatient consultation 05/27/23: Patient stated that her symptoms began 3-4? weeks ago with edema of her lower extremities.? Pt was [place] [facility] and started on Lasix and dose increased to 40 mg twice daily. Despite increasing her furosemide from 20 mg to 40 mg daily and then 40 mg b.i.d. and wearing compression stockings, patient's symptoms did not improve. Outpatient labs were significant for rapid decline in renal function and she was therefore admitted to the hospital for further management. Underwent albumin IV 100g/day infusion x 3 days with improvement in Cr to 1.5. Baseline appears to be 1.2-1.3. 06/08/23: Pt presents to the office today for follow up, reports shortness of breath has gradually worsened. Notices the girth of the abdomen is unchanged. Has more discomfort in her legs now lilly on walking. Remains abstinent from etOH last drink was on 02/26/23. Continues to be OFF diuretics. Office had called her x 2 to get blood work done however this is still pending. Weight today is 225#. Dry weight appears to be between 218-220 based on review of chart. Has follow up with Renal next week. Also getting another echo done next month. (prev hx of NICM from etOH vs chemo) Previous endoscopy: 03/2021 (Dr Brennan) EGD: gastritis, possible candidal esophagitis vs EoE Colonoscopy: Internal hemorrhoids, diverticular disease 07/19/23: EGD Flat varices. Portal hypertensive gastropathy. Normal duodenum 08/03/23: Seen in office for follow up. Reviewed the results of the EGD and that will need a repeat EGD in 2 years as long as remains sober from etOH. Was encouraged to bring up any relapses to our attention. Pt also mentions blood work done through PCP's office last week. Reveiwed, kidney function seems to have declined compared to before. Cont on spironolactone 100 and lasix 20. Weight today 178#, albeit has also been trying to intentionally lose some weight. 09/05/23: Here for 4 weeks follow up. Reports feeling good. No abd pain, N,V. Reports good appetite. No fluid accumulation noted for over 2 months. Taking Aldactone 100mg once daily. Renal function from 08/24 good, weight stable at 178#. 12/05/23: Reports having significant diarrhea for the past 3 days with abd cramping and incontinence. Was on Augmentin for suspected otitis up till a week ago. Appetite is also down with this and feels more fatigued. Also reports feeling foggy and inattentive, having trouble concentrating. Current meds: Spironolactone 100 Metoprolol 50 once daily mag oxide 01/13/24: Has been taking tylenol and gabapentin for knee pain and back pain which helps. No GI related complaints but still has periods of feeling foggy and feels not as sharp . Rifaximin had 500 OOP so did not take it. Diarrhea resolved with discontinuing mag oxide. Taking yolande 75 daily for ascites. MRI results reviewed and ed for 3m follow up MRI for LIRADS 3 lesion. [facility] Medical History Neuropathy Hx of screening mammography Vitamin B12 deficiency Vitamin D deficiency Annual physical exam Breast CA (~03/01/23) Flank pain, chronic Hx of abdominal pain Excessive drinking of alcohol COPD (chronic obstructive pulmonary disease) Pulmonary nodules Atrial arrhythmia Chronic systolic (congestive) heart failure NICM (nonischemic cardiomyopathy) Cardiac LV ejection fraction of 40-49% Osteoarthritis Rheumatoid arthritis Colonoscopy refused Muscle spasm History of breast cancer in female Chronic GERD Anxiety, generalized Hypertension, essential Surgical History History of esophagogastroduodenoscopy (EGD) H/O colonoscopy History of removal of Port-a-Cath History of hysterectomy History of section H/O right mastectomy Family History Father Non-Hodgkin lymphoma Mother CVD (cardiovascular disease) Brother Lung disease Sister No problems noted. Maternal Grandfather Colon cancer Maternal Grandmother CVD (cardiovascular disease) Paternal Grandfather Unknown family medical history Paternal Grandmother Unknown family medical history Brother No problems noted. Son No problems noted. Son No problems noted. Daughter No problems noted. 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 Evaluation for hepatic observations is significantly limited by motion degradation however there is a questionable 1.9 cm observation in hepatic segment 4 with washout on delayed phase imaging without arterial phase hyperenhancement or capsular enhancement, LI-RADS 3. Recommend 3-6 month follow-up MR abdomen. 2. A 2.1 cm cyst in the pancreatic head. No communication with the main pancreatic duct or high risk stigmata. Recommend 6 month follow-up contrast enhanced MRI/MRCP or GI referral for consideration of endoscopic ultrasound and fine-needle aspiration. 3. Cirrhosis with sequelae of portal hypertension including small volume asc ites and mild splenomegaly. 4. Stable L1 wedge compression deformity with approximately 50% height loss. Assessment & Plan Assessment & Plan (1) Ascites: Code(s): R18.8 - Other ascites (2) Hepatic encephalopathy: Code(s): K76.82 - Hepatic encephalopathy (3) Liver cirrhosis: Code(s): K74.60 - Unspecified cirrhosis of liver (4) Liver cyst: Code(s): K76.89 - Other specified diseases of liver (5) Peripheral edema: Code(s): R60.0 - Localized edema (6) Abnormal MRI of abdomen: Code(s): R93.5 - Abnormal findings on diagnostic imaging of other abdominal regions, including retroperitoneum (7) Pancreas cyst: Code(s): K86.2 - Cyst of pancreas Plan #Decomp etOH assoc cirrhosis - MELD-Na 18, Child Tracey Class B - ascites controlled on diuretics - Hepatic encephalopathy EtOH use disorder in remission Quit date 02/26/2023. Congratulated pt on continued sobriety. Mild pitting edema in lower extremities- will increase yolande back to 100mg PO daily and repeat BMP in 2 weeks. Seems to have covert encephalopathy and will trial lactulose. Discussed that given findings of LIRADS 3 lesion in liver will favor repeating MRI in 3 months as opposed to 6 months - this will also surveil the 2.1 cm panc cyst. Plan: - INCREASE spironolactone to 100mg PO daily - Repeat BMP in 2 weeks - Salt restriction reviewed - Start lactulose for covert HE. Goal 2-3 BMs per day. - Repeat MRI in March 2024 - reminder set. - Variceal screening: Next EGD due 06/2025. Of note pt on low dose metoprolol due to PVCs. - Pain control: Avoid NSAIDs. Tylenol ok up to 2g/day. - Transplant candidacy: Get updated MELD labs to review indication for referral - CRC screening: good quality colo in 2020- repeat recommended in 10 years. Follow up 2 months Orders: Orders Comprehensive Met. Panel 2 Weeks K74.60 - Unspecified cirrhosis of liver, N17.9 - Acute kidney failure, unspecified Prothrombin Time INR 2 Weeks K74.60 - Unspecified cirrhosis of liver, N17.9 - Acute kidney failure, unspecified Complete Blood Count no Diff 2 Weeks K74.60 - Unspecified cirrhosis of liver, N17.9 - Acute kidney failure, unspecified Medications: New lactulose 20 grams (30 mL) PO TID 3,000 mL 0RF K76.82 - Hepatic encephalopathy Changed From spironolactone 75 mg (1.5 x 50 mg) PO DAILY 90 days 135 tabs 0RF To spironolactone 100 mg (2 x 50 mg) PO DAILY 90 days 180 tabs 0RF Discontinued rifaximin Discontinued Reason: Doctor's Order 550 mg PO BID 30 days 60 tabs 3RF K76.82 - Hepatic encephalopathy Patient Instructions: Start lactulose syp - takes 2-3 times a day to achieve 2-3 loose bowel movements Increase spironolactone to 100mg once daily Labs in 2 weeks MRI in March 2024 Coding Level of Care Code Est Pt Level 5 (41628) Diagnoses Ascites R18.8 Hepatic encephalopathy K76.82 Liver cirrhosis K74.60 Liver cyst K76.89 Peripheral edema R60.0 Abnormal MRI of abdomen R93.5 Pancreas cyst K86.2
[2024-01-13 13:30] VITALS: BP 117/56; PULSE 65; BMI 25.7
== END 2024-01-13 14:21 | disposition home or self-care (01) ==
PROVIDERS: PCP Internal Medicine; Visit Provider Internal Medicine
DX: R18.8 Other ascites (principal); K76.82 Hepatic encephalopathy; K74.60 Unspecified cirrhosis of liver; K76.89 Other specified diseases of liver; R93.5 Abnormal findings on diagnostic imaging of other abdominal regions, including retroperitoneum; K86.2 Cyst of pancreas
CPT/HCPCS: 99214

== ENCOUNTER → 2024-01-13 13:26 | Outpatient (BNVA) | payer MEDICARE, SELFPAY | PROVIDERS: PCP Internal Medicine; Visit Provider Internal Medicine | DX: K76.82 Hepatic encephalopathy (principal); K74.60 Unspecified cirrhosis of liver; K76.89 Other specified diseases of liver; R18.8 Other ascites; K86.2 Cyst of pancreas; R93.5 Abnormal findings on diagnostic imaging of other abdominal regions, including retroperitoneum | CPT/HCPCS: 99212 ==

== ENCOUNTER 2024-01-24 14:01 | Outpatient (REF) | payer MEDICARE, SELFPAY ==
[2024-01-24 16:35] LABS: Alanine Aminotransferase 24 U/L (0-31); Alkaline Phosphatase 85 U/L (39-117); Anion Gap 11 (12-20); Aspartate Amino Transferase 41 U/L (5-31); Bilirubin Total 4.2 mg/dL (0.0-1.0); Blood Urea Nitrogen 17 mg/dL (9-16); Calcium 9.2 mg/dL (8.4-10.2); Carbon Dioxide 20 mmol/L (22-29); Chloride 110 mmol/L (96-108); Estimated Glomerular Filt Rate 50; Glucose Random 132 mg/dL (60-115); INTERNATIONAL NORM RATIO 1.3 (0.9-1.1); Potassium 4.3 mmol/L (3.3-5.1); Prothrombin Time 15.9 SEC (11.1-13.3); Sodium 137 mmol/L (135-145); Total Protein 6.7 g/dL (6.5-8.0)
[2024-01-24 17:09] LABS: Hematocrit 33.2 % (37.0-47.0); Hemoglobin 10.9 g/dl (12.0-16.0); Mean Corpuscular HGB Conc 32.8 g/dl (31.0-35.0); Mean Corpuscular Hemoglobin 34.4 pg (27.0-33.0); Mean Corpuscular Volume 104.7 fL (80.0-98.0); Mean Platelet Volume 11.5 fL (9.4-12.3); Platelet Count 162 X10*3/uL (160-400); Red Blood Count 3.17 X10*6/uL (4.20-5.50); Red Cell Distribution Width 16.6 % (11.0-16.0)
== END 2024-01-24 14:02 | disposition home or self-care (01) ==
LOC: HO.HMGCLDS 14:01
PROVIDERS: PCP Internal Medicine; Visit Provider Internal Medicine
DX: N17.9 Acute kidney failure, unspecified (principal); K74.60 Unspecified cirrhosis of liver
CPT/HCPCS: 36415; 80053; 85027; 85610

== ENCOUNTER 2024-03-05 07:51 | Outpatient (REF) | payer MEDICARE, SELFPAY ==
[2024-03-05 10:22] LABS: MANUAL DIFF FLAG NO
[2024-03-05 10:32] LABS: Basophils Percent Auto 0.4 % (0-2); Eosinophils Absolute Auto 0.1 X10*3/uL (0.0-0.4); Eosinophils Percent Auto 0.9 % (0-4); Hematocrit 31.4 % (37.0-47.0); Hemoglobin 10.2 g/dl (12.0-16.0); Imm Gran Abs Auto 0.08 X10*3/uL (0.00-0.03); Imm Gran Pct Auto 0.9 % (0.0-0.4); Lymphocytes Absolute Auto 1.7 X10*3/uL (1.2-4.9); Lymphocytes Percent Auto 18.3 % (20-40); Mean Corpuscular HGB Conc 32.5 g/dl (31.0-35.0); Mean Corpuscular Hemoglobin 33.7 pg (27.0-33.0); Mean Corpuscular Volume 103.6 fL (80.0-98.0); Mean Platelet Volume 11.7 fL (9.4-12.3); Monocytes Percent Auto 10.2 % (2-11); Neutrophils Absolute Auto 6.5 x10*3/uL (2.0-8.3); Neutrophils Percent Auto 69.3 % (45-73); Platelet Count 153 X10*3/uL (160-400); Red Blood Count 3.03 X10*6/uL (4.20-5.50); Red Cell Distribution Width 15.9 % (11.0-16.0); White Blood Count 9.4 X10*3/uL (4.8-10.8)
[2024-03-05 10:38] LABS: Estimated Average Glucose 82 mg/dL; Hemoglobin A1c % 4.5 % (<6.0)
[2024-03-05 10:59] LABS: Alanine Aminotransferase 23 U/L (0-31); Albumin Level 3.2 g/dL (3.5-5.0); Alkaline Phosphatase 83 U/L (39-117); Anion Gap 13 (12-20); Aspartate Amino Transferase 41 U/L (5-31); Bilirubin Total 3.2 mg/dL (0.0-1.0); Blood Urea Nitrogen 18 mg/dL (9-16); Calcium 9.3 mg/dL (8.4-10.2); Carbon Dioxide 24 mmol/L (22-29); Chloride 107 mmol/L (96-108); Cholesterol 180 mg/dL (<200); Estimated Glomerular Filt Rate 44; Glucose Fasting 95 mg/dL (60-99); HDL Cholesterol 37 mg/dL (>40); LDL Cholesterol Calculated 129 mg/dL (<100); Magnesium 1.6 mg/dL (1.6-2.6); Potassium 5.2 mmol/L (3.3-5.1); Sodium 139 mmol/L (135-145); Total Protein 6.9 g/dL (6.5-8.0); Triglycerides 72 mg/dL (<150)
[2024-03-05 11:20] LABS: TSH reflex Free T4 0.85 uIU/mL (0.32-4.0); Vitamin D 25-OH Total 34.6 ng/mL (>30)
[2024-03-05 11:25] LABS: Folate 11.2 ng/mL (> or = 4.0); Vitamin B12 1262 pg/mL (200-900)
== END 2024-03-05 07:52 | disposition home or self-care (01) ==
LOC: HO.HMGCLDS 07:51
PROVIDERS: PCP Internal Medicine; Visit Provider Internal Medicine
DX: Z00.00 Encounter for general adult medical examination without abnormal findings (principal); K76.7 Hepatorenal syndrome; R73.9 Hyperglycemia, unspecified; E83.42 Hypomagnesemia; I10 Essential (primary) hypertension; E55.9 Vitamin D deficiency, unspecified; E53.8 Deficiency of other specified B group vitamins
CPT/HCPCS: 36415; 80053; 80061; 82306; 82607; 82746; 83036; 83735; 84443; 85025

== ENCOUNTER 2024-03-06 13:21 | Outpatient (AMB) | payer MEDICARE, SELFPAY ==
--- NOTE | 2024-03-06 13:40 | A.OFFPC_ITS ---
Vital Signs 03/06/24 13:41 Height 5 ft 7 in Weight 172 lb BMI 26.9 BP 120/72 Blood Pressure Location Lt brachial Position Sitting Pulse 76 Pulse Source Pulse Oximeter Pulse Oximetry (%) 98 Oxygen Delivery Method Room Air Intake Visit Reasons: Annual PE Intake Note: Pt is here today for PE. Allergies hydromorphone [From DILAUDID] Allergy (Intermediate, Verified 03/06/24 13:44) hives, itching losartan Allergy (Intermediate, Verified 03/06/24 13:44) Angioedema tramadol [From ULTRAM] Allergy (Intermediate, Verified 03/06/24 13:44) hives,itching Medication List - Last Reconciled 03/06/24 by Adele Knight MD albuterol sulfate 90 mcg/actuation 1 puff inhalation QID PRN aspirin 81 mg PO DAILY cholecalciferol (vitamin D3) 50 mcg PO DAILY fluoxetine 40 mg PO DAILY jfzsdbiwaka-qjydtgteo-zvggspbg 200-62.5-25 mcg (Trelegy Ellipta) 1 inh inhalation DAILY 30 days gabapentin 300 mg PO BID metoprolol succinate ER 25 mg PO DAILY omeprazole 20 mg PO DAILY psyllium husk 1 tbsp PO DAILY spironolactone 100 mg (2 x 50 mg) PO DAILY 90 days vitamin B complex (B Complex-Vitamin B12 tablet) 1 tab PO DAILY Tobacco use date assessed: 03/06/24 Dental Screening Dental Screen Date: 03/06/24 Did you have a dental visit in the last 12 months?: Yes Did you have a dental problem in the last 6 months where you did not have access to dental care?: No Was dental information given to patient?: Patient has dentist HPI Annual PE HPI Details Patient presents for physical. She follows up with GI for liver cirrhosis due to alcohol and portal hypertension with recurrent ascites. She has been sober for a year. COPD stable on Trelegy. Chronic anxiety and depression stable on fluoxetine. [facility] Medical History (Updated 03/06/24 @ 14:13 by Adele Knight MD) Neuropathy Hx of screening mammography Vitamin B12 deficiency Vitamin D deficiency Annual physical exam Breast CA (~03/01/23) Flank pain, chronic Hx of abdominal pain Excessive drinking of alcohol COPD (chronic obstructive pulmonary disease) Pulmonary nodules Atrial arrhythmia NICM (nonischemic cardiomyopathy) Cardiac LV ejection fraction of 40-49% Osteoarthritis Colonoscopy refused Muscle spasm History of breast cancer in female Chronic GERD Anxiety, generalized Surgical History History of esophagogastroduodenoscopy (EGD) H/O colonoscopy History of removal of Port-a-Cath History of hysterectomy History of section H/O right mastectomy Family History Father Non-Hodgkin lymphoma Mother CVD (cardiovascular disease) Brother Lung disease Sister No problems noted. Maternal Grandfather Colon cancer Maternal Grandmother CVD (cardiovascular disease) Paternal Grandfather Unknown family medical history Paternal Grandmother Unknown family medical history Brother No problems noted. Son No problems noted. Son No problems noted. Daughter No problems noted. 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 1. Little interest or pleasure in doing things: not at all 2. Feeling down, depressed, or hopeless: not at all 3. Trouble falling or staying asleep, or sleeping too much: several days 4. Feeling tired or having little energy: not at all 5. Poor appetite or overeating: not at all 6. Feeling bad about yourself - or that you are a failure or have let yourself or your family down: not at all 7. Trouble concentrating on things, such as reading the newspaper or watching television: not at all 8. Moving or speaking so slowly that other people could have noticed. Or the opposite - being so fidgety or restless that you have been moving around a lot more than usual: not at all 9. Thoughts that you would be better off or of hurting yourself in some way: not at all Total score: 1 Depression Screening Interpretation: Negative Depression Screening Done: Yes Source: Developed by Drs. Mohit Israel, Krystal Kelsey, Khanh Davis and colleagues, with an educational apple from [employer]. Thrive Questionnaire Date Thrive assessed: 03/06/24 I am a: Patient What is your living situation today?: I have a steady place to live Within the past 12 months, did the food you bought not last and you didn't have the money to get more?: Never true Within the past 12 months, did you worry whether your food would run out before you got money to buy more?: Never true Do you have trouble paying for medicines?: No Do you have trouble getting transportation to medical appointments?: No Do you have trouble paying your heating and electricity bill?: No Do you have trouble taking care of your child, family member or friend?: No Do you have trouble with day-to-day activities such as bathing, preparing meals, shopping, managing finances, etc.?: No Are you currently unemployed and looking for a job?: No Are you interested in more education?: No Please select the resources that you would like help with: None THRIVE Score: 0 AUDIT C Alcohol Use Questionnaire (AUDIT-C) 1. How often do you have a drink containing alcohol?: 2-3 times a week 2. How many drinks containing alcohol do you have on a typical day when you are drinking?: 1 or 2 3. How often do you have six or more drinks on one occasion?: Never Total Score: 3 SATISH-7 AMB Questionnaire SATISH-7 Date SATISH - 7 assessed: 03/06/24 Feeling nervous, anxious, or on edge: 0 = Not at all Not being able to stop or control worryin = Not at all Worrying too much about different things: 0 = Not at all Trouble relaxin = Not at all Being so restless that it is hard to sit still: 0 = Not at all Becoming easily annoyed or irritable: 0 = Not at all Feeling afraid as if something awful might happen: 0 = Not at all Total SATISH-7 score (0-4 normal; 5-9 mild; 10-14 moderate; 15-21 severe): 0 Source: Developed by Drs. Mohit Israel, Krystal Kelsey, Khanh Davis and colleagues, with an educational apple from [employer]. Review of Systems Const All systems reviewed & are unremarkable except as noted in HPI and below ENT Reports no additional complaints Card Reports no additional complaints Resp Reports no additional complaints GI Reports no additional complaints Reports no additional complaints Physical exam (Primary Care) Vital Signs: Last Vital Signs Pulse 76 03/06/24 13:41 BP 120/72 03/06/24 13:41 Pulse Ox 98 03/06/24 13:41 Oxygen Delivery Method Room Air 03/06/24 13:41 BMI result Body Mass Index 26.9 Tobacco/Smoking Status: Tobacco use Status Tobacco use date assessed 03/06/24 03/06/24 13:43 Patient Tobacco Use Status Former Tobacco user 03/06/24 13:43 Tobacco use type Cigarette 03/06/24 13:40 e-Cigarette/Vaping Use Never Used 03/06/24 13:40 PHQ-9: PHQ-9 Score PHQ-9: Total score 1 03/06/24 13:50 Depression Screening Interpretation: Negative Thrive Assessment: Date of Thrive Assessment Date Thrive assessed 03/06/24 03/06/24 13:48 Const General: no acute distress HENMT Head: Yes normal to inspection Eyes General: appearance normal, both eyes and all related structures Neck Neck: Yes supple Resp Effort & Inspection: normal respiratory effort Auscultation: clear to auscultation bilaterally Cardio Rhythm: regular rhythm Heart sounds: S1 normal heart sound present and S2 normal heart sound present GI Inspection: Yes normal to inspection and Yes distended Palpation (GI): Soft to palpation Auscultation: normal bowel sounds Extrem Other: 1+ pitting edema Assessment and Plan Assessment & Plan (1) Hepatic encephalopathy: Code(s): K76.82 - Hepatic encephalopathy Plan: Continue lactulose and follow-up with GI (2) CKD (chronic kidney disease) stage 3, GFR 30-59 ml/min: Code(s): N18.30 - Chronic kidney disease, stage 3 unspecified Plan: Monitor renal function and avoid nephrotoxins. (3) Alcohol use disorder, severe, in early remission: Comment: sober since 10/2022 Code(s): F10.21 - Alcohol dependence, in remission (4) Ascites: Code(s): R18.8 - Other ascites Plan: Continue spironolactone follow-up with GI (5) Breast CA: Onset Date: ~03/01/23 Comment: R breast 2009, s/p mastectomy, chemo Code(s): C50.919 - Malignant neoplasm of unspecified site of unspecified female breast Plan: Follow-up with oncology (6) COPD (chronic obstructive pulmonary disease): Comment: f/u [facility] [place] Code(s): J44.9 - Chronic obstructive pulmonary disease, unspecified Qualifiers: COPD type: COPD with acute lower respiratory infection Qualified Code(s): J44.0 - Chronic obstructive pulmonary disease with (acute) lower respiratory infection Plan: Continue Trelegy (7) Annual physical exam: Code(s): Z00.00 - Encounter for general adult medical examination without abnormal findings Plan: Well-balanced diet regular physical activity discussed with the patient. Orders: Orders Basic Metabolic Panel 1 Week N18.30 - Chronic kidney disease, stage 3 unspecified Medications: Discontinued lactulose Discontinued Reason: Doctor's Order 30 mL PO TID 8,181 mL 0RF K76.82 - Hepatic encephalopathy Coding Level of Care Code Est Pt Prev Care >65y(36041) Diagnoses Hepatic encephalopathy K76.82 CKD (chronic kidney disease) stage 3, GFR 30-59 ml/min N18.30 Alcohol use disorder, severe, in early remission F10.21 Ascites R18.8 Breast CA C50.919 Chronic obstructive pulmonary disease with acute lower respiratory infection J44.0 COPD type: COPD with acute lower respiratory infection Annual physical exam Z00.00
[2024-03-06 13:41] VITALS: BP 120/72; PULSE 76; O2SAT 98; BMI 26.9
== END 2024-03-06 14:13 | disposition home or self-care (01) ==
PROVIDERS: PCP Internal Medicine; Visit Provider Internal Medicine
DX: Z00.00 Encounter for general adult medical examination without abnormal findings (principal); K76.82 Hepatic encephalopathy; N18.30 Chronic kidney disease, stage 3 unspecified; F10.21 Alcohol dependence, in remission; C50.919 Malignant neoplasm of unspecified site of unspecified female breast; J44.0 Chronic obstructive pulmonary disease with (acute) lower respiratory infection; R18.8 Other ascites
CPT/HCPCS: 99397

== ENCOUNTER 2024-03-13 12:11 | Outpatient (REF) | payer MEDICARE, SELFPAY ==
[2024-03-13 14:11] LABS: Anion Gap 15 (12-20); Blood Urea Nitrogen 16 mg/dL (9-16); Calcium 9.1 mg/dL (8.4-10.2); Carbon Dioxide 20 mmol/L (22-29); Chloride 107 mmol/L (96-108); Estimated Glomerular Filt Rate 44; Glucose Random 131 mg/dL (60-115); Potassium 3.7 mmol/L (3.3-5.1); Sodium 138 mmol/L (135-145)
== END 2024-03-13 12:12 | disposition home or self-care (01) ==
LOC: HO.HMGCLDS 12:11
PROVIDERS: PCP Internal Medicine; Visit Provider Internal Medicine
DX: N18.30 Chronic kidney disease, stage 3 unspecified (principal); R93.5 Abnormal findings on diagnostic imaging of other abdominal regions, including retroperitoneum; K76.89 Other specified diseases of liver
CPT/HCPCS: 36415; 80048

== ENCOUNTER 2024-03-20 09:05 | Outpatient (REF) | payer MEDICARE, SELFPAY ==
[2024-03-20 10:52] LABS: Anion Gap 12 (12-20); Blood Urea Nitrogen 17 mg/dL (9-16); Calcium 8.9 mg/dL (8.4-10.2); Carbon Dioxide 22 mmol/L (22-29); Chloride 108 mmol/L (96-108); Estimated Glomerular Filt Rate 52; Glucose Random 96 mg/dL (60-115); Potassium 3.8 mmol/L (3.3-5.1); Sodium 138 mmol/L (135-145)
== END 2024-03-20 09:06 | disposition home or self-care (01) ==
LOC: HO.HMGCLDS 09:05
PROVIDERS: PCP Internal Medicine; Visit Provider Internal Medicine
DX: R18.8 Other ascites (principal)
CPT/HCPCS: 36415; 80048

== ENCOUNTER 2024-03-22 11:35 | Outpatient (AMB) | payer MEDICARE, SELFPAY ==
--- NOTE | 2024-03-22 12:35 | MHC.OFFWIV ---
Intake Vital Signs 03/22/24 12:36 Height 5 ft 7 in Weight 181 lb BMI 28.3 BP 110/72 Blood Pressure Location Lt brachial Position Sitting Pulse 84 Pulse Source Pulse Oximeter Temp 97.4 F Temp Source Temporal Artery Scan Pulse Oximetry (%) 95 Oxygen Delivery Method Room Air Intake Visit Reasons: EP LT Moser ?Cellulitis Intake Note: pt is here todat for moser started 3 days ago Patient Tobacco Use Status: Former Tobacco user Quit Date: 1994 Allergies hydromorphone [From DILAUDID] Allergy (Intermediate, Verified 03/22/24 12:39) hives, itching losartan Allergy (Intermediate, Verified 03/22/24 12:39) Angioedema tramadol [From ULTRAM] Allergy (Intermediate, Verified 03/22/24 12:39) hives,itching Do you need a note to return to daycare/school/sports/work: No HPI HPI Comments History of Present Illness Details 74 y/o female patient who presents to walk in clinic with c/o swelling, red and tenderness left lower extremity for couple of days. [facility] Medical History (Updated 03/06/24 @ 14:13 by Adele Knight MD) Neuropathy Hx of screening mammography Vitamin B12 deficiency Vitamin D deficiency Annual physical exam Breast CA (~03/01/23) Flank pain, chronic Hx of abdominal pain Excessive drinking of alcohol COPD (chronic obstructive pulmonary disease) Pulmonary nodules Atrial arrhythmia NICM (nonischemic cardiomyopathy) Cardiac LV ejection fraction of 40-49% Osteoarthritis Colonoscopy refused Muscle spasm History of breast cancer in female Chronic GERD Anxiety, generalized Surgical History History of esophagogastroduodenoscopy (EGD) H/O colonoscopy History of removal of Port-a-Cath History of hysterectomy History of section H/O right mastectomy Family History Father Non-Hodgkin lymphoma Mother CVD (cardiovascular disease) Brother Lung disease Sister No problems noted. Maternal Grandfather Colon cancer Maternal Grandmother CVD (cardiovascular disease) Paternal Grandfather Unknown family medical history Paternal Grandmother Unknown family medical history Brother No problems noted. Son No problems noted. Son No problems noted. Daughter No problems noted. 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: No Hearing needs: No Vision needs: Yes (wears glasses ) Review of Systems Const All systems reviewed & are unremarkable except as noted in HPI and below Physical Exam Vital Signs: Last Vital Signs Temp 97.4 F 03/22/24 12:36 Pulse 84 03/22/24 12:36 BP 110/72 03/22/24 12:36 Pulse Ox 95 03/22/24 12:36 Oxygen Delivery Method Room Air 03/22/24 12:36 BMI result Body Mass Index 28.3 Const General: comfortable and no acute distress Orientation/consciousness: patient oriented x3 Neuro General: patient oriented x3 Extrem Right lower extremity: lower leg Details: pitting edema; no tenderness Left lower extremity: edema Details: pitting and 2+ and lower leg Details: erythema, tenderness and pitting edema Psych Speech and movement: Normal speech and movement present Assessment & Plan Assessment & Plan (1) Cellulitis of skin: Code(s): L03.90 - Cellulitis, unspecified Plan: - Will start a lower dose Keflex due to h/o Advanced Liver disease - Take medication as prescribed. Medications: New cephalexin 250 mg PO BID 14 caps 0RF 7 days L03.90 - Cellulitis, unspecified Coding Level of Care Code Est Pt Level 3 (71535) Diagnoses Cellulitis of skin L03.90 Time Spent (min) 15
[2024-03-22 12:36] VITALS: BP 110/72; PULSE 84; TEMP 36.3; O2SAT 95; BMI 28.3
== END 2024-03-22 13:11 | disposition home or self-care (01) ==
PROVIDERS: PCP Internal Medicine; Visit Provider Nurse Practitioner Family
DX: L03.90 Cellulitis, unspecified (principal)
CPT/HCPCS: 99213

== ENCOUNTER 2024-03-27 08:09 | Outpatient (AMB) | payer MEDICARE, SELFPAY ==
--- NOTE | 2024-03-27 08:37 | AM.OFFWIN_ITS ---
Intake Vital Signs 03/27/24 08:38 Height 5 ft 7 in Weight 181 lb BMI 28.3 BP 104/60 Blood Pressure Location Rt brachial Position Sitting Pulse 65 Pulse Source Pulse Oximeter Temp 98.3 F Temp Source Oral Pulse Oximetry (%) 97 Oxygen Delivery Method Room Air Intake Visit Reasons: EP increase lymphedema ~ legs Intake Note: pt is here for increase lymphedema for legs Patient Tobacco Use Status: Former Tobacco user Quit Date: 1994 Allergies hydromorphone [From DILAUDID] Allergy (Intermediate, Verified 03/27/24 08:38) hives, itching losartan Allergy (Intermediate, Verified 03/27/24 08:38) Angioedema tramadol [From ULTRAM] Allergy (Intermediate, Verified 03/27/24 08:38) hives,itching Do you need a note to return to daycare/school/sports/work: No HPI HPI Comments History of Present Illness Details Patient is a 74 year old female with a past medical history of liver cirrhosis, former etoh use, CKD3, COPD, NICM (EF 40-49%), GERD and anxiety who presents with increasing bilateral lower extremity edema. She also is c/o redness, warmth and pain in her right anterior lower extremity. She reports starting 100mg spirinolactone daily on 03/21 when she weighed 189lbs, she states her weight has gone down to 181.6lbs today (normal wt is 178lbs) but she notice her legs are both more swollen. She was also started on keflex (renally dosed) on 03/21 which she is still taking. She also has noticed increase in belly size, states she has known ascites but has never been tapped. Denies fevers, shortness of breath or chest pain. Denies hx of DVT but does admit to having MRSA infection when she had breast cancer. [facility] Medical History (Updated 03/27/24 @ 09:38 by Juanita Mota PA-C) Neuropathy Hx of screening mammography Vitamin B12 deficiency Vitamin D deficiency Annual physical exam Breast CA (~03/01/23) Flank pain, chronic Hx of abdominal pain Excessive drinking of alcohol COPD (chronic obstructive pulmonary disease) Pulmonary nodules Atrial arrhythmia NICM (nonischemic cardiomyopathy) Cardiac LV ejection fraction of 40-49% Osteoarthritis Colonoscopy refused Muscle spasm History of breast cancer in female Chronic GERD Anxiety, generalized Surgical History History of esophagogastroduodenoscopy (EGD) H/O colonoscopy History of removal of Port-a-Cath History of hysterectomy History of section H/O right mastectomy Family History Father Non-Hodgkin lymphoma Mother CVD (cardiovascular disease) Brother Lung disease Sister No problems noted. Maternal Grandfather Colon cancer Maternal Grandmother CVD (cardiovascular disease) Paternal Grandfather Unknown family medical history Paternal Grandmother Unknown family medical history Brother No problems noted. Son No problems noted. Son No problems noted. Daughter No problems noted. 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: No Hearing needs: No Vision needs: Yes (wears glasses ) Review of Systems Const All systems reviewed & are unremarkable except as noted in HPI and below Physical Exam Vital Signs: Last Vital Signs Temp 98.3 F 03/27/24 08:38 Pulse 65 03/27/24 08:38 BP 104/60 03/27/24 08:38 Pulse Ox 97 03/27/24 08:38 Oxygen Delivery Method Room Air 03/27/24 08:38 BMI result Body Mass Index 28.3 Const General: cooperative, healthy appearing, comfortable and no acute distress Nutritional Appearance: average body habitus Orientation/consciousness: patient oriented x3 Limitations: no limitations HEENT Head: Yes normal to inspection Face and sinus: Yes normal facial exam Resp Effort & Inspection: normal respiratory effort, able to speak in complete sentences, no audible wheezes, no cough, no respiratory distress and not tachypneic Auscultation: clear to auscultation bilaterally Cardio Rate: regular rate Rhythm: regular rhythm Heart sounds: normal S1 and S2 GI Inspection: Yes Abdominal wall edema and No distended Palpation (GI): Soft to palpation, not firm, nontender and no guarding Percussion: No Fluid wave present and No tympanic to percussion Auscultation: normal bowel sounds Neuro General: patient oriented x3 Extrem General: No calf tenderness and Yes edema (bilateral lower ext 1+) Right lower extremity: lower leg Details: pitting edema Details: 1+ Left lower extremity: lower leg Details: erythema Location: of the mid lower leg and pitting edema Details: 1+; no tenderness and no unusual warmth Assessment & Plan Assessment & Plan (1) Cellulitis of leg, left: Code(s): L03.116 - Cellulitis of left lower limb Plan: Advised to continue keflex, if not better by 03/30, call me and I will call in Dox for MRSA coverage as had in past but was likely immunocompromised with brca tx during that time. (2) Bilateral lower extremity edema: Comment: Advised to increase from 20mg furosemide daily to BID x 3 days, if not improved in 3 days, go to ER. Also advised go to ER if weight increases by >2-3lb or if she experiences difficulty breathing, wheezing, sob or cp. Code(s): R60.0 - Localized edema Plan see above Coding Level of Care Code Est Pt Level 4 (27705) Diagnoses Cellulitis of leg, left L03.116 Bilateral lower extremity edema R60.0
[2024-03-27 08:38] VITALS: BP 104/60; PULSE 65; TEMP 36.8; O2SAT 97; BMI 28.3
== END 2024-03-27 09:29 | disposition home or self-care (01) ==
PROVIDERS: PCP Internal Medicine; Visit Provider Physician Assistant
DX: L03.116 Cellulitis of left lower limb (principal); R60.0 Localized edema
CPT/HCPCS: 99214

== ENCOUNTER 2024-03-29 13:32 | Outpatient (REF) | payer MEDICARE, SELFPAY ==
[2024-03-29 16:35] LABS: Anion Gap 15 (12-20); Blood Urea Nitrogen 22 mg/dL (9-16); Calcium 9.1 mg/dL (8.4-10.2); Carbon Dioxide 24 mmol/L (22-29); Chloride 103 mmol/L (96-108); Estimated Glomerular Filt Rate 35; Glucose Random 125 mg/dL (60-115); Potassium 3.9 mmol/L (3.3-5.1); Sodium 138 mmol/L (135-145)
== END 2024-03-29 13:33 | disposition home or self-care (01) ==
LOC: HO.HMGCLDS 13:32
PROVIDERS: PCP Internal Medicine; Visit Provider Internal Medicine
DX: R60.0 Localized edema (principal)
CPT/HCPCS: 36415; 80048

== ENCOUNTER 2024-03-30 17:05 | Inpatient (IN) | payer MEDICARE, SELFPAY ==
--- NOTE | ~2024-03-30 | XR_ITS ---
EXAMINATION: XR CHEST CLINICAL INFORMATION: Shortness of breath. COMPARISON: Chest radiograph 07/26/2023. TECHNIQUE: 2 views of the chest were obtained. FINDINGS: Normal appearance of the cardiomediastinal silhouette. No focal airspace opacities, pleural effusion or pneumothorax. Postsurgical changes in the right breast. Chronic, stable compression deformity in the lower thoracic/upper lumbar spine. No acute osseous findings. XR/XR chest 2V IMPRESSION: No acute cardiopulmonary findings.
--- NOTE | ~2024-03-30 | US_ITS ---
ULTRASOUND GUIDED DIAGNOSTIC PARACENTESIS HISTORY: Ascites. Diagnostic drainage TECHNIQUE/FINDINGS: Risks and benefits and possible complications were discussed with the patient and consent form was signed. A safe pocket of ascitic fluid was identified right lower quadrant using ultrasound guidance, and the overlying skin was marked, prepped and draped in sterile fashion. 1% lidocaine was used as a local anesthetic. Using ultrasound guidance, a 5 fr catheter was placed into the ascitic pocket. 1.0 liters of yellow fluid was removed passively. The catheter was then removed. A few patient access representative images from before and after the examination were obtained. The procedure was performed by Vini Reeves PA-C and supervised by Dr. Quintana. US/US paracentesis abd w/image IMPRESSION: Ultrasound-guided paracentesis as described above. No immediate complications
--- NOTE | ~2024-03-30 | US_ITS ---
EXAMINATION: US VENOUS ULTRASOUND WITH DOPPLER LOWER EXTREMITY, BILATERAL CLINICAL INFORMATION: Pain, swelling COMPARISON: 05/05/2023 TECHNIQUE: Ultrasound of the deep veins is performed from the hip to the calf with compression sonography and color and pulse Doppler assessment. Spectral analysis with color-flow imaging is performed. FINDINGS: RIGHT: There is normal venous compression and respiratory variation and augmented flow. The visualized common femoral vein, superficial femoral vein, profunda femoral vein, popliteal vein, and the trifurcation region shows no evidence of deep venous thrombosis. Popliteal fossa cyst measures 6.2 x 1.7 x 2.2 cm. Edema noted in the calf. LEFT: There is normal venous compression and respiratory variation and augmented flow. The visualized common femoral vein, superficial femoral vein, profunda femoral vein, popliteal vein, and the trifurcation region shows no evidence of deep venous thrombosis. Popliteal fossa cyst measures 6.3 x 1.6 x 2.2 cm. Edema noted in the calf. If the patient's symptoms persist, followup ultrasound in 5 days 7 days might be of value to exclude proximal propagation from a non-visualized calf vein. US/US venous duplex LE IMPRESSION: 1. No DVT demonstrated in the bilateral lower extremities. 2. Bilateral popliteal fossa cysts. 3. Bilateral calf edema.
--- NOTE | 2024-03-30 17:19 | ED_ITS ---
HPI - General Adult General Chief complaint: Extremity Problem Stated complaint: Dr reyes sent patient here, kidney/ leg prob. sob Time Seen by Provider: 03/30/24 23:00 Source: patient and old records reviewed Mode of arrival: ambulatory Limitations: no limitations History of Present Illness ED Provider: REBECCA GARCES narrative: 74 yo female with PMH of COPD, HTN, CHF EF 55%, IBS, ETOH use disorder and cirrhosis with prior admissions in past for LE edema and SANDRA who presents again with LE and SANDRA - last time patient received paracentesis and albumin IV and responded. She presents today with c/o leg swelling x 1 week. Increased lasix from 20mg daily to 20mg BID for 3 days without relief. She notes left leg had cellulitis that started all of this and she was treated with cephelaxin which helped. She saw her doctor who noted the swelling and her Cr increased from 1 to 1.5 sent ED for further breannaal complaint: leg edema Onset (ago): week(s) (1) Location: left, right and lower extremity Radiation: non-radiation Severity: moderate Quality: aching Pain Consistency: constant Relieving factors: none Exacerbating factors: movement Associated symptoms: loss of appetite, shortness of breath and other Treatments prior to arrival: none Related Data Home Medications ?Medication ?Instructions ?Recorded ?Confirmed aspirin 81 mg tablet,delayed 81 mg PO DAILY 12/18/20 03/06/24 release cholecalciferol (vitamin D3) 50 50 mcg PO DAILY 12/18/20 03/06/24 mcg (2,000 unit) capsule vitamin B complex (B 1 tab PO DAILY 07/27/21 03/06/24 Complex-Vitamin B12 tablet) omeprazole 20 mg capsule,delayed 20 mg PO DAILY 07/15/23 03/06/24 release Previous Rx's ?Medication ?Instructions ?Recorded albuterol sulfate 90 mcg/actuation 1 puff inhalation QID PRN for 03/30/23 aerosol inhaler wheezing #17 grams metoprolol succinate 25 mg 25 mg PO DAILY #90 tabs 06/15/23 tablet,extended release 24 hr fluoxetine 40 mg capsule 40 mg PO DAILY #90 caps 06/16/23 gabapentin 300 mg capsule 300 mg PO BID #180 caps 11/22/23 psyllium husk 2.6 gram/4.1 gram 1 tbsp PO DAILY #480 grams 12/05/23 oral powder spironolactone 50 mg tablet 100 mg (2 x 50 mg) PO DAILY 90 02/16/24 days #180 tabs fluticasone fur. 200 mcg-umeclid 1 inh inhalation DAILY #180 ea 03/06/24 62.5 mcg-vilant 25 mcg inhalat.powder (Trelegy Ellipta) furosemide 20 mg tablet 20 mg PO DAILY #30 tabs 03/21/24 cephalexin 250 mg capsule 250 mg PO BID 7 days #14 caps 03/22/24 compression stockings #1 ea 03/29/24 Allergies Allergy/AdvReac Type Severity Reaction Status Date / Time hydromorphone [From DILAUDID] Allergy Intermediate hives, Verified 03/30/24 17:25 itching losartan Allergy Intermediate Angioedema Verified 03/30/24 17:25 tramadol [From ULTRAM] Allergy Intermediate hives,itchi Verified 03/30/24 17:25 ng Review of Systems 2 Review of Systems: Constitutional : No Fever, No Chills ENT/Mouth : No Ear Pain, No Hoarseness, No sore throat Eyes: No Eye Pain, No Swelling, No Redness, No Foreign Body Cardiovascular : No Chest Pain, pos SOB, pos leg edema Respiratory : No Cough, No Dyspnea Gastrointestinal : No Nausea, No Vomiting, No Diarrhea, No abdominal Pain Genitourinary : No Dysuria, No Hematuria Musculoskeletal : positive joint pain, No Myalgias, No Joint Swelling Skin : No Skin lacerations, No rash Neuro : No Weakness, No Numbness, No Loss of Consciousness, No Dizziness, No Headache Psych : No Anxiety/Panic, No Depression All other systems reviewed and are negative [facility] Past Medical History Attestation statement: The following information was validated with the patient. Source: old records reviewed Medical History Neuropathy Hx of screening mammography Vitamin B12 deficiency Vitamin D deficiency Annual physical exam Breast CA (~03/01/23) Flank pain, chronic Hx of abdominal pain Excessive drinking of alcohol COPD (chronic obstructive pulmonary disease) Pulmonary nodules Atrial arrhythmia NICM (nonischemic cardiomyopathy) Cardiac LV ejection fraction of 40-49% Osteoarthritis Colonoscopy refused Muscle spasm History of breast cancer in female Chronic GERD Anxiety, generalized Surgical History History of esophagogastroduodenoscopy (EGD) H/O colonoscopy History of removal of Port-a-Cath History of hysterectomy History of section H/O right mastectomy Family History Family History Father Non-Hodgkin lymphoma Mother CVD (cardiovascular disease) Brother Lung disease Sister No problems noted. Maternal Grandfather Colon cancer Maternal Grandmother CVD (cardiovascular disease) Paternal Grandfather Unknown family medical history Paternal Grandmother Unknown family medical history Brother No problems noted. Son No problems noted. Son No problems noted. Daughter No problems noted. 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 Oriented X3. No acute distress. Eyes: Pupils equal, round and reactive to light. scleral icterus ENT: Pharynx normal. Neck: Normal inspection. Neck supple. CVS: Normal heart rate and rhythm. Pulses normal. Respiratory: No respiratory distress. Breath sounds normal. Abdomen: Soft and nontender. + ascited noted mild to moderate Skin: Skin warm and dry. Normal skin color. Normal skin turgor. Extremities: pitting bilateral 1+ lower extremity edema. No calf ttp Neuro: Oriented X 3. No motor deficit. No sensory deficit. Course Course Course Narrative: This is an RME performed by Olga Parks CNP: Additional HPI, ROS, PE not included below will be deferred to primary provider. Patient is a 74-year-old female who presents to the emergency department reporting bilateral lower extremity edema, shortness of breath over the past 1.5 weeks. Reports gastroenterology increased her Lasix, has had some improvement in the swelling to her legs, but continues to have shortness of breath. Received expect call from gastroenterology; Dr. Montoya, reports patient has history of decompensated cirrhosis, having worsening edema, an SANDRA, she advises patient may require nephrology workup and albumin replacement. Plan: Serum labs, CXR, EKG Medical Decision Making Medical Decision Making [facility] Narrative: 74 yo female with PMH of COPD, HTN, CHF EF 55%, IBS, ETOH use disorder and cirrhosis here with mild SANDRA and leg edema not responding to diuretics doubled at home at this time labs, CXR, DVT study and IV albumin ordered. Would hold diuretics given softer BPs. Her legs are not infected, I do not hear fluid in the lungs to suggest CHF - suspect again decompensated cirrhosis - she has ascites as well but no ttp to suggest SBP. Differential Diagnosis Differential Diagnoses: The differential diagnosis associated with the presentation includes SANDRA, dehydration, CHF, DVT Admission/Observation Consideration of admission/observation: Escalation of care including admission/observation considered will admit for further workup - low mag, edema, mild SANDRA Consult Healthcare Provider Management of the patient was discussed with: Hospitalist (will admit) Lab Data [facility] Lab Attestation statement: I reviewed the patient's lab results. 03/30/24 18:01 03/30/24 18:01 Labs: Lab Results 03/30/24 Range/Units 18:01 WBC 9.4 (4.8-10.8) X10*3/uL RBC 2.85 L (4.20-5.50) X10*6/uL Hgb 10.1 L (12.0-16.0) g/dl Hct 30.1 L (37.0-47.0) % MCV 105.6 H (80.0-98.0) fL MCH 35.4 H (27.0-33.0) pg MCHC 33.6 (31.0-35.0) g/dl RDW 16.3 H (11.0-16.0) % Plt Count 188 (160-400) X10*3/uL MPV 10.9 (9.4-12.3) fL Immature Gran % (Auto) 0.6 H (0.0-0.4) % Neut % (Auto) 61.3 (45-73) % Lymph % (Auto) 23.5 (20-40) % [place] % (Auto) 13.2 H (2-11) % Eos % (Auto) 0.9 (0-4) % Baso % (Auto) 0.5 (0-2) % Lymph # (Auto) 2.2 (1.2-4.9) X10*3/uL [place] # (Auto) 1.2 (0.1-1.2) X10*3/uL Eos # (Auto) 0.1 (0.0-0.4) X10*3/uL Baso # (Auto) 0.1 (0.0-0.2) X10*3/uL Abs Immat Gran (auto) 0.06 H (0.00-0.03) X10*3/uL Absolute Neuts (auto) 5.7 (2.0-8.3) x10*3/uL Absolute Nucleated RBC 0.000 (0.0-0.012) X10*3/uL Nucleated RBC % (auto) 0.0 (0.0-0.2) /100WBC PT 19.8 H D (11.1-13.3) SEC INR 1.6 H (0.9-1.1) Sodium 139 (135-145) mmol/L Potassium 3.5 (3.3-5.1) mmol/L Chloride 103 (96-108) mmol/L Carbon Dioxide 24 (22-29) mmol/L Anion Gap 16 (12-20) BUN 24 H (9-16) mg/dL Creatinine 1.53 H (0.5-1.4) mg/dL Estim Creat Clear Calc 36.4 Estimated GFR 33 Random Glucose 106 (60-115) mg/dL Calcium 9.1 (8.4-10.2) mg/dL Magnesium 1.5 L (1.6-2.6) mg/dL Total Bilirubin 4.3 H (0.0-1.0) mg/dL AST 42 H (5-31) U/L ALT 22 (0-31) U/L Alkaline Phosphatase 85 (39-117) U/L B-Natriuretic Peptide 415 H (<100) pg/mL Total Protein 6.7 (6.5-8.0) g/dL Albumin 3.1 L (3.5-5.0) g/dL Urine Color Dark Yellow Urine Appearance Cloudy Urine pH 5.5 (5.0-9.0) Ur Specific [place] 1.015 (1.005-1.025) Urine Protein Negative (Neg-Trace) mg/dL Urine Glucose (UA) Negative (Negative) mg/dL Urine Ketones Trace (Negative) mg/dL Urine Blood Moderate (2+) H (Negative) Urine Nitrite Negative (Negative) Ur Leukocyte Esterase Large (3+) H (Negative) Urine RBC >20 H (0-2) /HPF Urine WBC 11-20 H (0-5) /HPF Ur Squamous Epith Cells 11-20 (0-2) /HPF Urine Bacteria 1+ (None Seen) Hyaline Casts 11-20 (0-2) /LPF Ethyl Alcohol < 10 mg/dL Independent Interpretation I performed an independent interpretation of an: EKG, Plain X-Ray (no CHF) and Ultrasound (no DVT) Interpretation: Rate: 63 Rhythm: NSR with PACs [place]: normal Normal P waves. Normal GAYLA. Normal QRS complex. ST T wave : T wave inversions V1 and V2, no OZIEL qTC: 460 prior studies: no acute ischemia The study has been interpreted contemporaneously by me. . Radiology Impression Discussion of test interpretation with radiology: I have reviewed the radiologist's reading. External Record Review External record reviewed: Office record Discharge Plan Discharge Clinical Impression: Leg edema, Ascites, SANDRA (acute kidney injury), Hypomagnesemia Patient Disposition: Admitted As Inpatient Prescriptions: No Action albuterol sulfate 90 mcg/actuation HFA aerosol inhaler 1 puff inhalation QID PRN (Reason: for wheezing) Qty: 17 4RF metoprolol succinate 25 mg tablet extended release 24 hr 25 mg PO DAILY Qty: 90 3RF fluoxetine 40 mg capsule 40 mg PO DAILY Qty: 90 3RF gabapentin 300 mg capsule 300 mg PO BID Qty: 180 1RF spironolactone 50 mg tablet 100 mg PO DAILY 90 Days Qty: 180 1RF Trelegy Ellipta 200-62.5-25 mcg blister with device 1 inh inhalation DAILY Qty: 180 3RF furosemide 20 mg tablet 20 mg PO DAILY Qty: 30 0RF (DME) compression stockings See Rx Instructions .Route .MEDSUPPLY Qty: 1 0RF Rx Instructions: 20-30 mm Hg; over the calf omeprazole 20 mg Capsule,Delayed Release(Dr/Ec) 20 mg PO DAILY cephalexin 250 mg capsule 250 mg PO BID 7 Days Qty: 14 0RF aspirin 81 mg tablet,delayed release (DR/EC) 81 mg PO DAILY cholecalciferol (vitamin D3) 50 mcg (2,000 unit) capsule 50 mcg PO DAILY vitamin B complex [B Complex-Vitamin B12] Tablet 1 tab PO DAILY psyllium husk 2.6 gram/4.1 gram powder 1 tbsp PO DAILY Qty: 480 0RF Rx Instructions: mix into at least 8 oz of water or juice before administering Print Language: Arabic
[2024-03-30 17:23] VITALS: BP 101/44; PULSE 67; RESP 18; TEMP 35.8; O2SAT 97; BMI 28.0
--- NOTE | 2024-03-30 17:25 | ECG_ITS ---
Test Reason : shortness of breath Blood Pressure : / mmHG Vent. Rate : 063 BPM Atrial Rate : 063 BPM P-R Int : 156 ms QRS Dur : 072 ms QT Int : 450 ms P-R-T Axes : 068 040 074 degrees QTc Int : 460 ms Sinus rhythm with Premature supraventricular complexes Low voltage QRS Septal infarct (cited on or before 05-MAY-2023) Abnormal ECG When compared with ECG of 21-MAY-2023 14:16, Premature ventricular complexes are no longer Present Premature supraventricular complexes are now Present Questionable change in initial forces of Septal leads Nonspecific T wave abnormality now evident in Lateral leads Referred By: Gwendolyn Parks Electronically Signed By:KARLY HOLMAN MD
[2024-03-30 18:18] LABS: MANUAL DIFF FLAG NO
[2024-03-30 18:23] LABS: Appearance Urine Cloudy; Color Urine Dark Yellow; Glucose Urine UA Negative (Negative); Leukocyte Esterase Urine Large (3+) (Negative); Nitrite Urine Negative (Negative); PH 5.5 (5.0-9.0); Specific Gravity - Urine 1.015 (1.005-1.025); UMIC TRIGGER UACC YES; Urine Blood Moderate (2+) (Negative); Urine Ketones Trace mg/dL (Negative); Urine Protein Negative (Neg-Trace)
[2024-03-30 18:25] LABS: Basophils Absolute Auto 0.1 X10*3/uL (0.0-0.2); Basophils Percent Auto 0.5 % (0-2); Eosinophils Absolute Auto 0.1 X10*3/uL (0.0-0.4); Eosinophils Percent Auto 0.9 % (0-4); Hematocrit 30.1 % (37.0-47.0); Hemoglobin 10.1 g/dl (12.0-16.0); Imm Gran Abs Auto 0.06 X10*3/uL (0.00-0.03); Imm Gran Pct Auto 0.6 % (0.0-0.4); Lymphocytes Absolute Auto 2.2 X10*3/uL (1.2-4.9); Lymphocytes Percent Auto 23.5 % (20-40); Mean Corpuscular HGB Conc 33.6 g/dl (31.0-35.0); Mean Corpuscular Hemoglobin 35.4 pg (27.0-33.0); Mean Corpuscular Volume 105.6 fL (80.0-98.0); Mean Platelet Volume 10.9 fL (9.4-12.3); Monocytes Absolute Auto 1.2 X10*3/uL (0.1-1.2); Monocytes Percent Auto 13.2 % (2-11); Neutrophils Absolute Auto 5.7 x10*3/uL (2.0-8.3); Neutrophils Percent Auto 61.3 % (45-73); Platelet Count 188 X10*3/uL (160-400); Red Blood Count 2.85 X10*6/uL (4.20-5.50); Red Cell Distribution Width 16.3 % (11.0-16.0); White Blood Count 9.4 X10*3/uL (4.8-10.8)
[2024-03-30 18:31] LABS: INTERNATIONAL NORM RATIO 1.6 (0.9-1.1); Prothrombin Time 19.8 SEC (11.1-13.3)
[2024-03-30 18:35] LABS: Bacteria Urine 1+ (None Seen); RBC Urine >20 /HPF (0-2); UACC Culture Trigger YES
[2024-03-30 18:39] LABS: Alanine Aminotransferase 22 U/L (0-31); Albumin Level 3.1 g/dL (3.5-5.0); Alkaline Phosphatase 85 U/L (39-117); Anion Gap 16 (12-20); Aspartate Amino Transferase 42 U/L (5-31); Bilirubin Total 4.3 mg/dL (0.0-1.0); Blood Urea Nitrogen 24 mg/dL (9-16); Calcium 9.1 mg/dL (8.4-10.2); Carbon Dioxide 24 mmol/L (22-29); Chloride 103 mmol/L (96-108); Creatinine Clr Calc Pharmacy 36.4; Estimated Glomerular Filt Rate 33; Glucose Random 106 mg/dL (60-115); Magnesium 1.5 mg/dL (1.6-2.6); Potassium 3.5 mmol/L (3.3-5.1); Sodium 139 mmol/L (135-145); Total Protein 6.7 g/dL (6.5-8.0)
[2024-03-30 18:42] LABS: B Type Natriuretic Peptide 415 pg/mL (<100)
[2024-03-30 23:53] LABS: Ethanol < 10 mg/dL
[2024-03-31] VITALS (7 sets, daily range): BP systolic 103–129; BP diastolic 39–81; PULSE 68–71; RESP 13–19; TEMP 36.1–36.7; O2SAT 97–98
--- NOTE | 2024-03-31 00:11 | PC.NURSE ---
pt currently off unit for US
--- NOTE | 2024-03-31 00:42 | P.HPHOSP_ITS ---
History of Present Illness Date of Service: 03/31/24 Chief Complaint: Abnormal labs This is a 74-year-old female with pertinent history of alcoholic cirrhosis, COPD not on home oxygen, congestive heart failure with preserved EF, hypertension, breast ca, mood disorder who presents to the emergency department for evaluation of abnormal labs. 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 Creatinine was found to be elevated and she was sent to the ER. Patient has been taking double dose of her Lasix for the last 3-4 days due to lower extremity swelling. Also noticed redness to her left lower extremity and she was prescribed p.o. antibiotics by urgent care. Denies orthopnea, dyspnea or PND. Also has abdominal swelling. Does endorse increased urinary frequency and urgency. No fever, chills, chest discomfort palpitations, abdominal pain, changes in bowel habits. Previous admission due to SANDRA which improved after giving colloids and holding diuretics. In the emergency department, patient was found to have SANDRA. Review of Systems 2 Constitutional: Constitutional: Reports no additional constitutional complaints Cardiovascular: Cardiovascular: Reports no additional cardiovascular complaints Respiratory: Respiratory: Reports no additional respiratory complaints Gastrointestinal: Gastrointestinal: Reports no additional gastrointestinal complaints Genitourinary: Genitourinary: Reports urinary urgency [facility] Medical History Neuropathy Hx of screening mammography Vitamin B12 deficiency Vitamin D deficiency Annual physical exam Breast CA (~03/01/23) Flank pain, chronic Hx of abdominal pain Excessive drinking of alcohol COPD (chronic obstructive pulmonary disease) Pulmonary nodules Atrial arrhythmia NICM (nonischemic cardiomyopathy) Cardiac LV ejection fraction of 40-49% Osteoarthritis Colonoscopy refused Muscle spasm History of breast cancer in female Chronic GERD Anxiety, generalized Family History Father Non-Hodgkin lymphoma Mother CVD (cardiovascular disease) Brother Lung disease Sister No problems noted. Maternal Grandfather Colon cancer Maternal Grandmother CVD (cardiovascular disease) Paternal Grandfather Unknown family medical history Paternal Grandmother Unknown family medical history Brother No problems noted. Son No problems noted. Son No problems noted. Daughter No problems noted. Other Mental health disorder Substance use disorder Surgical History History of esophagogastroduodenoscopy (EGD) H/O colonoscopy History of removal of Port-a-Cath History of hysterectomy History of section H/O right mastectomy Social History Household Members: None Housing: Apartment Do you presently have visiting nurse or other home services: No Alcohol intake: former Year quit: 2022 Patient Tobacco Use Status: Former Tobacco user Tobacco use type: Cigarette Years Smoked: 10 e-Cigarette/Vaping Use: Never Used Second Hand Smoke Exposure: No Advance Directives: No Advance Directives Information Provided: No service: No 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 needs: No Hearing needs: No Vision needs: Yes (wears glasses ) Meds Allergies Allergy/AdvReac Type Severity Reaction Status Date / Time hydromorphone [From DILAUDID] Allergy Intermediate hives, Verified 03/30/24 17:25 itching losartan Allergy Intermediate Angioedema Verified 03/30/24 17:25 tramadol [From ULTRAM] Allergy Intermediate hives,itchi Verified 03/30/24 17:25 ng Active Medications: Current Medications Albumin Human (Kedbumin 25 %) 100 mls @ 100 mls/hr IV Q1H REINA Stop: 03/31/24 01:29 Magnesium Sulfate (Magnesium Sulfate/H2o) 2 gm in 50 mls @ 25 mls/hr IV ONCE ONE Stop: 03/31/24 01:29 Home Medications ?Medication ?Instructions ?Recorded ?Confirmed ?Last Taken ?Type aspirin 81 mg tablet,delayed 81 mg PO DAILY 12/18/20 03/06/24 07/18/23 History release cholecalciferol (vitamin D3) 50 50 mcg PO DAILY 12/18/20 03/06/24 05/26/23 History mcg (2,000 unit) capsule vitamin B complex (B 1 tab PO DAILY 07/27/21 03/06/24 05/26/23 History Complex-Vitamin B12 tablet) omeprazole 20 mg capsule,delayed 20 mg PO DAILY 07/15/23 03/06/24 07/19/23 History release Physical Exam 2 Vital Signs and Narrative: Vital Signs: Last Vital Signs Temp 98.1 F 03/31/24 00:03 Pulse 69 03/31/24 00:03 Resp 18 03/31/24 00:03 BP 123/46 L 03/31/24 00:03 Pulse Ox 97 03/31/24 00:03 O2 Del Method Room Air 03/31/24 00:03 BMI result Body Mass Index 28.0 Middle-aged female lying in bed in no distress Neck supple, no JVD Regular rate and rhythm, S1-S2 heard Regular breath sounds bilaterally, no wheezing or crackles appreciated Abdomen distended, nontender, no guarding, no rigidity Patient is awake, alert and oriented to self, place, time and person ; no focal motor deficit Psych: Normal mood Bilateral pedal edema ; left lower extremity with erythema, warmth and tenderness Results Labs 03/30/24 18:01 03/30/24 18:01 Labs: Laboratory Results - last 24 hr 03/30/24 18:01 MCV 105.6 H MCH 35.4 H MCHC 33.6 RDW 16.3 H Plt Count 188 MPV 10.9 Immature Gran % (Auto) 0.6 H Neut % (Auto) 61.3 Lymph % (Auto) 23.5 [place] % (Auto) 13.2 H Eos % (Auto) 0.9 Baso % (Auto) 0.5 Lymph # (Auto) 2.2 [place] # (Auto) 1.2 Eos # (Auto) 0.1 Baso # (Auto) 0.1 Abs Immat Gran (auto) 0.06 H Absolute Neuts (auto) 5.7 Absolute Nucleated RBC 0.000 Nucleated RBC % (auto) 0.0 PT 19.8 H D INR 1.6 H Anion Gap 16 Estim Creat Clear Calc 36.4 Estimated GFR 33 Random Glucose 106 Calcium 9.1 Magnesium 1.5 L Total Bilirubin 4.3 H AST 42 H ALT 22 Alkaline Phosphatase 85 B-Natriuretic Peptide 415 H Total Protein 6.7 Albumin 3.1 L Urine Color Dark Yellow Urine Appearance Cloudy Urine pH 5.5 Ur Specific [place] 1.015 Urine Protein Negative Urine Glucose (UA) Negative Urine Ketones Trace Urine Blood Moderate (2+) H Urine Nitrite Negative Ur Leukocyte Esterase Large (3+) H Urine RBC >20 H Urine WBC 11-20 H Ur Squamous Epith Cells 11-20 Urine Bacteria 1+ Hyaline Casts 11-20 Ethyl Alcohol < 10 Imaging Radiologist's Impressions: Impressions Chest X-Ray 03/30/24 17:35 IMPRESSION: No acute cardiopulmonary findings. Assessment and Plan (1) SANDRA (acute kidney injury): Status: Acute Plan This is a 74-year-old female with pertinent history of alcoholic cirrhosis, COPD not on home oxygen, congestive heart failure with preserved EF, hypertension, breast ca, mood disorder who presents to the emergency department for evaluation of abnormal labs. #. SANDRA, stage I nonoliguric: Likely due to over-diuresis. Hold furosemide and spironolactone. Give albumin. Monitor #. Alcoholic cirrhosis with ascites: Will order IR guided paracentesis #. Bilateral pedal edema: In the setting of cirrhosis, hypoalbuminemia. Venous duplex pending #. Left lower extremity cellulitis in the setting of above: Minimal improvement with outpatient po abx. Initiating empiric IV antibiotics. Monitor for improvement #. Acute UTI: Initiating empiric IV Rocephin. Follow cultures #. COPD not on home oxygen: No exacerbation during admission. Continue home inhalers #. Congestive heart failure with preserved EF: Hold diuresis as above. #. Gastroesophageal reflux disease: Ppi #. Mood disorder: Continue home mood stabilizers #. Hypertension: Continue antihypertensives Med rec pending DVT prophylaxis: Lovenox Full code Admit as inpatient and will require two night minimum hospital stay for monitoring of kidney function, IV antibiotics (as above), which is not possible in a lesser acute setting. Quality Stroke Does the patient have a stroke diagnosis?: No VTE Prior VTE?: No VTE Risk Level:: Medical - moderate - high VTE Device Contraindication: Treatment Not Indicated VTE Drug Contraindication: N/A - Med Ordered
[2024-03-31] MEDS: oxyCODONE HCl Immed Release 5 MG TABLET PO (00:44)
[2024-03-31] MEDS: Albumin Human 25 % 100 ML IV ×5 (00:44→18:17)
[2024-03-31] MEDS: Magnesium Sulfate/H2O 2 GM/50 ML PIGGYBACK IV (01:42)
--- NOTE | 2024-03-31 03:53 | PC.NURSE ---
per hospitalist no need for blood cultures to be drawn prior to iv abx treatment. he is also aware that the patient's albumin bag 2 of 2 from original order is just now infusing and states it is okay for additional bags to be hung as soon as possible.
[2024-03-31] MEDS: Enoxaparin Sodium 40 MG/0.4 ML SYRINGE SUBCUT (04:44)
[2024-03-31] MEDS: cefTRIAXone sodium 1 GM in 0.9 % Sodium Chloride 50 ML IV (04:44)
[2024-03-31] MEDS: Acetaminophen 325 MG TABLET 650 MG PO ×3 (05:18→20:33)
[2024-03-31] MEDS: vancomycin HCL 1,500 MG in 0.9 % Sodium Chloride 500 ML 333.33 MG IV (05:19)
[2024-03-31 06:16] LABS: MANUAL DIFF FLAG NO
[2024-03-31 06:40] LABS: Basophils Percent Auto 0.6 % (0-2); Eosinophils Absolute Auto 0.1 X10*3/uL (0.0-0.4); Eosinophils Percent Auto 1.6 % (0-4); Hematocrit 25.1 % (37.0-47.0); Hemoglobin 8.6 g/dl (12.0-16.0); Imm Gran Abs Auto 0.08 X10*3/uL (0.00-0.03); Imm Gran Pct Auto 1.2 % (0.0-0.4); Lymphocytes Absolute Auto 1.9 X10*3/uL (1.2-4.9); Lymphocytes Percent Auto 28.6 % (20-40); Mean Corpuscular HGB Conc 34.3 g/dl (31.0-35.0); Mean Corpuscular Hemoglobin 35.4 pg (27.0-33.0); Mean Corpuscular Volume 103.3 fL (80.0-98.0); Mean Platelet Volume 11.1 fL (9.4-12.3); Monocytes Absolute Auto 0.7 X10*3/uL (0.1-1.2); Monocytes Percent Auto 10.5 % (2-11); Neutrophils Absolute Auto 3.9 x10*3/uL (2.0-8.3); Neutrophils Percent Auto 57.5 % (45-73); Platelet Count 141 X10*3/uL (160-400); Red Blood Count 2.43 X10*6/uL (4.20-5.50); Red Cell Distribution Width 16.3 % (11.0-16.0); White Blood Count 6.7 X10*3/uL (4.8-10.8)
[2024-03-31 06:43] LABS: Anion Gap 17 (12-20); Blood Urea Nitrogen 22 mg/dL (9-16); Calcium 9.2 mg/dL (8.4-10.2); Carbon Dioxide 21 mmol/L (22-29); Chloride 104 mmol/L (96-108); Creatinine Clr Calc Pharmacy 37.1; Estimated Glomerular Filt Rate 34; Glucose Random 90 mg/dL (60-115); Potassium 3.5 mmol/L (3.3-5.1); Sodium 138 mmol/L (135-145)
--- NOTE | 2024-03-31 07:58 | PHA.PROG ---
Admission Date/Time: March 31, 2024 00:40 Indication: SKIN Weight in k kg Adjusted body weight in K.36 [place] body weight in Kg: Obesity Dosing Indication % IBW: Serum Creatinine - Last 168 Hours 03/30/24 03/31/24 18:01 05:52 Creatinine 1.53 H 1.50 H Estimated CrCl and GFR - Last 168 Hours 03/30/24 03/31/24 18:01 05:52 Estim Creat Clear Calc 36.4 37.1 Estimated GFR 33 34 Vancomycin Loading Dose: 1500 MG Current Vancomycin Dosing Regimen: 1000MG Q24 Vancomycin Monitoring using AUC goal of 400 - 600 range with trough as surrogate marker: RANDOM @0500 Date and Time for next Vancomycin Level to be drawn: AUC 491, TROUGH 15.8 Pharmacist Comments on Vancomycin Plan: Vancomycin dosing will take advantage of [employer] as a clinical decision support tool that uses Bayesian modeling to calculate individual patient's pharmacokinetic parameters and forecast the patient's drug concentration time course with the target goal AUC 24 range of 400 - 600 mg/L/hr.
--- NOTE | 2024-03-31 09:21 | P.CNGI_ITS ---
History of Present Illness Data of Consult Service Date: 03/31/24 Requesting physician: Patrick Tovar Primary Care Provider: Adele Knight MD HPI Reason for consult: SANDRA 74 YF with COPD, HTN, HFpEF, (EF 55-60% on 03/04/2022), IBS, hx of breast cancer, and hx of alcohol use disorder who presented to the hospital on my behest for worsening volume overload and SANDRA. Patient is well known to our service. Had an admission in 06/12/2023 for decompensated cirrhosis. Since then, has been abstinence from alcohol 02/26/23. More recently, noted to have mild SANDRA on outpatient labs 03/07/24 for which diuretics were held. After week, she developed worsening edema and abdominal distention. Diuretics were gradually increased with minimal response her dry weight is around 178# and she was up to 189#. On repeat labs yesterday, she was noted to have creatinine increased to 1.4 and therefore advised to come to the emergency room. Of note, also has LI-RADS 3 liver lesion on MRI dated 01/11/2024, and due for repeat this month. On presentation to the emergency room, she was noted to have stable vitals. Labs with INR up to 1.6, creatinine up to 1.5, urinalysis shows possible UTI and ATN. She had a chest x-ray that was normal. She also had ultrasound of her lower extremities for DVT that is also negative. Previous endoscopy: 03/2021 (Dr Brennan)EGD: gastritis, possible candidal esophagitis vs EoE Colonoscopy: Internal hemorrhoids, diverticular disease 07/19/23: EGD Flat varices. Portal hypertensive gastropathy. Normal duodenum. Review of Systems 2 Review of Systems: Yes all other systems are reviewed and are negative [facility] Past Medical History Medical History Neuropathy Hx of screening mammography Vitamin B12 deficiency Vitamin D deficiency Annual physical exam Breast CA (~03/01/23) Flank pain, chronic Hx of abdominal pain Excessive drinking of alcohol COPD (chronic obstructive pulmonary disease) Pulmonary nodules Atrial arrhythmia NICM (nonischemic cardiomyopathy) Cardiac LV ejection fraction of 40-49% Osteoarthritis Colonoscopy refused Muscle spasm History of breast cancer in female Chronic GERD Anxiety, generalized Family History Family History Father Non-Hodgkin lymphoma Mother CVD (cardiovascular disease) Brother Lung disease Sister No problems noted. Maternal Grandfather Colon cancer Maternal Grandmother CVD (cardiovascular disease) Paternal Grandfather Unknown family medical history Paternal Grandmother Unknown family medical history Brother No problems noted. Son No problems noted. Son No problems noted. Daughter No problems noted. Other Mental health disorder Substance use disorder Surgical History Surgical History History of esophagogastroduodenoscopy (EGD) H/O colonoscopy History of removal of Port-a-Cath History of hysterectomy History of section H/O right mastectomy Social History Social History Household Members: None Housing: Apartment Do you presently have visiting nurse or other home services: No Alcohol intake: former Year quit: 2022 Patient Tobacco Use Status: Former Tobacco user Tobacco use type: Cigarette Years Smoked: 10 Smoked in Last 30 Days: No e-Cigarette/Vaping Use: Never Used Second Hand Smoke Exposure: No Use of substances other than those prescribed or required for medical reasons: No Advance Directives: No Advance Directives Information Provided: No service: No 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 needs: No Hearing needs: No Vision needs: Yes (wears glasses ) Meds Allergies Allergy/AdvReac Type Severity Reaction Status Date / Time hydromorphone [From DILAUDID] Allergy Intermediate hives, Verified 03/30/24 17:25 itching losartan Allergy Intermediate Angioedema Verified 03/30/24 17:25 tramadol [From ULTRAM] Allergy Intermediate hives,itchi Verified 03/30/24 17:25 ng Active Medications: Current Medications Acetaminophen (Acetaminophen 325 Mg Tablet) 650 mg PO Q6H PRN PRN Reason: Pain, Mild (Pain Scale 1-3) Last Admin: 03/31/24 05:18 Dose: 650 mg Enoxaparin Sodium (Enoxaparin Sodium 40 Mg/0.4 Ml Syringe) 40 mg SUBCUT Q24H REINA Last Admin: 03/31/24 04:44 Dose: 40 mg Ceftriaxone Sodium 1 gm/ (Sodium Chloride) 50 mls @ 100 mls/hr IV Q24H [facility] Last Infusion: 03/31/24 05:15 Dose: Infused Albumin Human (Kedbumin 25 %) 100 mls @ 100 mls/hr IV Q6H [facility] Stop: 04/01/24 01:59 Last Admin: 03/31/24 06:52 Dose: 100 mls/hr Vancomycin HCl 1,000 mg/ (Sodium Chloride) 270 mls @ 270 mls/hr IV Q24H [facility] Melatonin (Melatonin 3 Mg Tablet) 6 mg PO BEDTIME PRN PRN Reason: Insomnia Ondansetron HCl (Ondansetron Hcl 4 Mg/2 Ml Vial) 4 mg IVPUSH Q8H PRN PRN Reason: Nausea and Vomiting Pharmacy Consult (Consult Rx Vancomycin Dosing) 1 each MISCELLANE DAILY PRN PRN Reason: Consult order Sodium Chloride (0.9 % Sodium Chloride Flush 3 Ml Syringe) [facility] Medications ?Medication ?Instructions ?Recorded ?Confirmed ?Last Taken ?Type aspirin 81 mg tablet,delayed 81 mg PO DAILY 12/18/20 03/06/24 07/18/23 History release cholecalciferol (vitamin D3) 50 50 mcg PO DAILY 12/18/20 03/06/24 05/26/23 History mcg (2,000 unit) capsule vitamin B complex (B 1 tab PO DAILY 07/27/21 03/06/24 05/26/23 History Complex-Vitamin B12 tablet) omeprazole 20 mg capsule,delayed 20 mg PO DAILY 07/15/23 03/06/24 07/19/23 History release Physical Exam 2 Vital Signs: Vital Signs: Last Vital Signs Temp 96.9 F 03/31/24 08:20 Pulse 70 03/31/24 08:20 Resp 14 03/31/24 08:20 BP 103/44 L 03/31/24 08:20 Pulse Ox 98 03/31/24 08:20 O2 Del Method Room Air 03/31/24 08:20 BMI result Body Mass Index 28.0 Elderly female bitemporal wasting noted no resp distress abd soft, distended, nontender lower extremity pitting edema +++ Results Labs 03/31/24 05:52 03/31/24 05:52 Labs: Short CBC 03/30/24 03/31/24 Range/Units 18:01 05:52 WBC 9.4 6.7 (4.8-10.8) X10*3/uL Hgb 10.1 L 8.6 L (12.0-16.0) g/dl Hct 30.1 L 25.1 L (37.0-47.0) % Plt Count 188 141 L (160-400) X10*3/uL BMP 03/30/24 03/31/24 18:01 05:52 Sodium 139 138 Potassium 3.5 3.5 Chloride 103 104 Carbon Dioxide 24 21 L BUN 24 H 22 H Creatinine 1.53 H 1.50 H Calcium 9.1 9.2 Liver Function 03/30/24 Range/Units 18:01 Total Bilirubin 4.3 H (0.0-1.0) mg/dL AST 42 H (5-31) U/L ALT 22 (0-31) U/L Alkaline Phosphatase 85 (39-117) U/L Albumin 3.1 L (3.5-5.0) g/dL Urine 03/30/24 Range/Units 18:01 Urine Color Dark Yellow Urine Appearance Cloudy Urine pH 5.5 (5.0-9.0) Ur Specific [place] 1.015 (1.005-1.025) Urine Protein Negative (Neg-Trace) mg/dL Urine Glucose (UA) Negative (Negative) mg/dL Assessment and Plan (1) SANDRA (acute kidney injury): Status: Acute (2) Ascites: Qualifiers: Ascites type: due to alcoholic cirrhosis Qualified Code(s): K70.31 - Alcoholic cirrhosis of liver with ascites Status: Acute (3) Bilateral lower extremity edema: Status: Acute (4) Pancreas cyst: Status: Acute (5) Decompensated hepatic cirrhosis: Status: Acute (6) Urinary tract infection: Status: Inactive Plan #Decomp etOH assoc cirrhosis - MELD-Na 22 - ascites #UTI #SANDRA #Liver lesion #EtOH use disorder in remission Has worsening ascites and edema in the setting of SANDRA and UTI. Will need albumin as well as midrodrine to optimize renal perfusion. Agree with Abx for UTI, BCx ordered as well to complete sepsis work up. In terms of segent 4 LIRADS 3 lesion, recommend inpatient MRI liver protocol. Otherwise remains abstinent from etOH. Quit date 02/26/2023. Plan: Plan: - HOLD all diuretics - Agree with albumin 25% 100ml QID to be cont'd for at least 2 days - Start midodrine 5 mg TID. If MAP does not increase by 10, can increase dose to 10mg TID - Urine Cr, Na and K ordered - If renal function does not improve in 48h, pls add octreotide as per HRS protocol. Pls also consult renal in that case. - Blood cultures x2 ordered - Agree with Abx for UTI - US Abd for ascites eval - if present pls proceed with DIAGNOSTIC para (i.e no more than 1L removed) - High protein diet, add ensure shakes (ordered) - MRI liver protocol to be done this admission Thank you for allowing me to participate in her care. Please do not hesitate to reach out for any questions or concerns. Procedures Date of Service Date of Service: 03/31/24
[2024-03-31] MEDS: 0.9 % Sodium Chloride Flush 3 ML SYRINGE IVFLUSH ×2 (09:59→20:36)
[2024-03-31] MEDS: Phytonadione (Vit K1) Oral 10 MG/ML AMPUL PO (10:31)
[2024-03-31] MEDS: Midodrine HCl 5 MG TABLET PO ×3 (10:31→20:34)
--- NOTE | 2024-03-31 10:39 | PHA.MEDREC ---
Pharmacy Consult ? Medication Reconciliation Pharmacy has completed the medication reconciliation. Spoke to patient and confirmed medication list. Patient said she finished the course of cephalexin 250 mg bid on Tuesday, she takes gabapentin 300 mg bid and vitamin B complex QOD. She no longer takes furosemide nor metamucil.
--- NOTE | 2024-03-31 11:28 | P.PNIM_ITS ---
Subjective Subjective Date of Service: 03/31/24 Interval History: bilateral lowerextremity edema with rle erythema Physical Exam 2 Vital Signs: Vital Signs: Last Vital Signs Temp 96.9 F 03/31/24 08:20 Pulse 70 03/31/24 08:20 Resp 14 03/31/24 08:20 BP 103/44 L 03/31/24 08:20 Pulse Ox 98 03/31/24 08:20 O2 Del Method Room Air 03/31/24 08:20 BMI result Body Mass Index 28.0 General: AO X 3, no acute distress, mild jaundice Resp: CTA bilateral, no accessory muscles used CVS: S1,S2,RRR, bilateral 3+ edema GI: soft, non tender, distended Neuro: motor grossly intact, alert Psych: appropriate affect, appropriate insight skin: rle erythema, warmth Objective Data Active Medications Acetaminophen (Acetaminophen 325 Mg Tablet) 650 mg PO Q6H PRN PRN Reason: Pain, Mild (Pain Scale 1-3) Last Admin: 03/31/24 10:41 Dose: 650 mg Documented By: SAPNA Enoxaparin Sodium (Enoxaparin Sodium 40 Mg/0.4 Ml Syringe) 40 mg SUBCUT Q24H [facility] Last Admin: 03/31/24 04:44 Dose: 40 mg Documented By: NABEEL Ceftriaxone Sodium 1 gm/ (Sodium Chloride) 50 mls @ 100 mls/hr IV Q24H [facility] Last Infusion: 03/31/24 05:15 Dose: Infused Documented By: NABEEL Albumin Human (Kedbumin 25 %) 100 mls @ 100 mls/hr IV Q6H [facility] Stop: 04/01/24 01:59 Last Admin: 03/31/24 06:52 Dose: 100 mls/hr Documented By: NABEEL Vancomycin HCl 1,000 mg/ (Sodium Chloride) 270 mls @ 270 mls/hr IV Q24H [facility] Melatonin (Melatonin 3 Mg Tablet) 6 mg PO BEDTIME PRN PRN Reason: Insomnia Midodrine (Midodrine Hcl 5 Mg Tablet) 5 mg PO TID [facility] Last Admin: 03/31/24 10:31 Dose: 5 mg Documented By: SAPNA Ondansetron HCl (Ondansetron Hcl 4 Mg/2 Ml Vial) 4 mg IVPUSH Q8H PRN PRN Reason: Nausea and Vomiting Pharmacy Consult (Consult Rx Vancomycin Dosing) 1 each MISCELLANE DAILY PRN PRN Reason: Consult order Sodium Chloride (0.9 % Sodium Chloride Flush 3 Ml Syringe) 3 ml IVFLUSH QSHIFT [facility] Last Admin: 03/31/24 09:59 Dose: 3 ml Documented By: SAPNA Labs 03/31/24 05:52 03/31/24 05:52 Labs: Laboratory Results - last 24 hr 03/30/24 03/31/24 18:01 05:52 MCV 105.6 H 103.3 H MCH 35.4 H 35.4 H MCHC 33.6 34.3 RDW 16.3 H 16.3 H Plt Count 188 141 L MPV 10.9 11.1 Immature Gran % (Auto) 0.6 H 1.2 H Neut % (Auto) 61.3 57.5 Lymph % (Auto) 23.5 28.6 [place] % (Auto) 13.2 H 10.5 Eos % (Auto) 0.9 1.6 Baso % (Auto) 0.5 0.6 Lymph # (Auto) 2.2 1.9 [place] # (Auto) 1.2 0.7 Eos # (Auto) 0.1 0.1 Baso # (Auto) 0.1 0.0 Abs Immat Gran (auto) 0.06 H 0.08 H Absolute Neuts (auto) 5.7 3.9 Absolute Nucleated RBC 0.000 0.000 Nucleated RBC % (auto) 0.0 0.0 PT 19.8 H D INR 1.6 H Anion Gap 16 17 Estim Creat Clear Calc 36.4 37.1 Estimated GFR 33 34 Random Glucose 106 90 Calcium 9.1 9.2 Magnesium 1.5 L Total Bilirubin 4.3 H AST 42 H ALT 22 Alkaline Phosphatase 85 B-Natriuretic Peptide 415 H Total Protein 6.7 Albumin 3.1 L Urine Color Dark Yellow Urine Appearance Cloudy Urine pH 5.5 Ur Specific [place] 1.015 Urine Protein Negative Urine Glucose (UA) Negative Urine Ketones Trace Urine Blood Moderate (2+) H Urine Nitrite Negative Ur Leukocyte Esterase Large (3+) H Urine RBC >20 H Urine WBC 11-20 H Ur Squamous Epith Cells 11-20 Urine Bacteria 1+ Hyaline Casts 11-20 Ethyl Alcohol < 10 Assessment and Plan (1) SANDRA (acute kidney injury): Status: Acute Plan 74F PMH etoh dependence in remission, etoh cirrhosis, copd, hfref, htn, breast ca, mood disorder, sent to ED for elevated creatnine SANDRA on CKD 2 Likely due to diuretics, holding furosemide and Aldactone, given albumin, midodrine, monitor Alcoholic cirrhosis GI following Plan for diagnostic paracentesis on 04/02/2024 Left lower extremity erythema Most likely stasis dermatitis, possible cellulitis Continue IV vancomycin for now No sepsis UTI Continue IV ceftriaxone, follow-up cultures, no sepsis COPD Stable DVT prophylaxis with Lovenox Full Code reason for continued hospitalization: Acute kidney injury, close monitoring, IV albumin Quality Stroke Does the patient have a stroke diagnosis?: No VTE Prior VTE?: No VTE Risk Level:: Medical - moderate - high VTE Device Contraindication: Treatment Not Indicated VTE Drug Contraindication: N/A - Med Ordered
--- NOTE | 2024-03-31 14:14 | PC.NURSE ---
Patient with a small skin tear noted on mid back, area cleansed and dcd applied. ( chronic in nature)
[2024-03-31 14:58] LABS: Creatinine Urine 90.78 mg/dL; Potassium Urine Random 24.5 mmol/L; Sodium Urine Random < 20.0 mmol/L
--- NOTE | 2024-03-31 15:45 | MHC.CM.PN ---
IMM delivered. Patient lives in an apt alone. Functionally independent. PCP Adele Knight MD Patient completed HCP naming daughter Angelina as HCA. DP: Goal is home self care. Do not anticipate the need for services. Daughter to transport. CM will continue to follow.
[2024-03-31] MEDS: Gabapentin 300 MG CAPSULE PO (20:34)
[2024-04-01] MEDS: Albumin Human 25 % 100 ML IV (00:47)
[2024-04-01] MEDS: Enoxaparin Sodium 40 MG/0.4 ML SYRINGE SUBCUT (00:47)
[2024-04-01] MEDS: cefTRIAXone sodium 1 GM in 0.9 % Sodium Chloride 50 ML IV (01:50)
[2024-04-01 02:59] VITALS: BP 121/56; PULSE 67; RESP 16; TEMP 36.2; O2SAT 96
[2024-04-01 06:12] LABS: Alanine Aminotransferase 14 U/L (0-31); Albumin Level 3.7 g/dL (3.5-5.0); Alkaline Phosphatase 50 U/L (39-117); Anion Gap 12 (12-20); Aspartate Amino Transferase 31 U/L (5-31); Bilirubin Direct 1.5 mg/dL (0.0-0.5); Bilirubin Total 4.4 mg/dL (0.0-1.0); Blood Urea Nitrogen 21 mg/dL (9-16); Calcium 9.6 mg/dL (8.4-10.2); Carbon Dioxide 26 mmol/L (22-29); Chloride 104 mmol/L (96-108); Creatinine Clr Calc Pharmacy 40.6; Estimated Glomerular Filt Rate 38; Glucose Fasting 87 mg/dL (60-99); Potassium 3.9 mmol/L (3.3-5.1); Sodium 138 mmol/L (135-145); Total Protein 6.1 g/dL (6.5-8.0)
[2024-04-01] MEDS: ondansetron HCL 4 MG/2 ML VIAL IVPUSH (06:13)
[2024-04-01 06:19] LABS: Hematocrit 24.4 % (37.0-47.0); Hemoglobin 8.3 g/dl (12.0-16.0); Mean Corpuscular Hemoglobin 35.8 pg (27.0-33.0); Mean Corpuscular Volume 105.2 fL (80.0-98.0); Mean Platelet Volume 11.3 fL (9.4-12.3); Platelet Count 117 X10*3/uL (160-400); Red Blood Count 2.32 X10*6/uL (4.20-5.50); Red Cell Distribution Width 16.8 % (11.0-16.0); White Blood Count 6.9 X10*3/uL (4.8-10.8)
[2024-04-01] MEDS: vancomycin HCL 1,000 MG in 0.9 % Sodium Chloride 250 ML 270 MG IV (06:24)
[2024-04-01 07:51] VITALS: BP 114/55; PULSE 69; RESP 18; TEMP 36.4; O2SAT 93
[2024-04-01] MEDS: FLUoxetine HCl 20 MG CAPSULE 40 MG PO (08:08)
[2024-04-01] MEDS: Cholecalciferol (Vitamin D3) 25 MCG TABLET 50 MCG PO (08:08)
[2024-04-01] MEDS: Aspirin Enteric Coated 81 MG TABLET.DR PO (08:08)
[2024-04-01] MEDS: Midodrine HCl 5 MG TABLET PO ×3 (08:08→19:28)
[2024-04-01 08:09] VITALS: BP 114/55; PULSE 69
[2024-04-01] MEDS: Metoprolol Succinate ER 25 MG TAB.ER.24H PO (08:09)
[2024-04-01] MEDS: Gabapentin 300 MG CAPSULE PO ×2 (08:09→19:28)
[2024-04-01] MEDS: 0.9 % Sodium Chloride Flush 3 ML SYRINGE IVFLUSH (08:13)
--- NOTE | 2024-04-01 08:42 | HO.PM.IMPN ---
Subjective Subjective Date of Service: 04/01/24 Interval History: n/v Physical Exam Vital Signs: Vital Signs: Last Vital Signs Temp 97.5 F 04/01/24 07:51 Pulse 69 04/01/24 08:09 Resp 18 04/01/24 07:51 BP 114/55 L 04/01/24 08:09 Pulse Ox 93 04/01/24 07:51 O2 Del Method Room Air 04/01/24 07:51 BMI result Body Mass Index 28.0 General: AO X 3, no acute distress, mild jaundice Resp: CTA bilateral, no accessory muscles used CVS: S1,S2,RRR, bilateral 2+ edema GI: soft, non tender, distended Neuro: motor grossly intact, alert Psych: appropriate affect, appropriate insight skin: rle erythema, warmth improving Objective Data Active Medications Acetaminophen (Acetaminophen 325 Mg Tablet) 650 mg PO Q6H PRN PRN Reason: Pain, Mild (Pain Scale 1-3) Last Admin: 03/31/24 20:33 Dose: 650 mg Documented By: TERRA Comments: per pt only wants Tylenol for her pain Aspirin (Aspirin Enteric Coated 81 Mg Tablet.) 81 mg PO DAILY [facility] Last Admin: 04/01/24 08:08 Dose: 81 mg Documented By: DIANA Enoxaparin Sodium (Enoxaparin Sodium 40 Mg/0.4 Ml Syringe) 40 mg SUBCUT Q24H [facility] Last Admin: 04/01/24 00:47 Dose: 40 mg Documented By: TERRA Fluoxetine HCl (Fluoxetine Hcl 20 Mg Capsule) 40 mg PO DAILY [facility] Last Admin: 04/01/24 08:08 Dose: 40 mg Documented By: DIANA Fluticasone/Umeclidinium/Vilanterol (Fluticasone/Umeclidinium/Vilanterol 200/62.5/25 Blst.W.Dev) 1 puff INHALE RDAILY [facility] Gabapentin (Gabapentin 300 Mg Capsule) 300 mg PO BID [facility] Last Admin: 04/01/24 08:09 Dose: 300 mg Documented By: DIANA Ceftriaxone Sodium 1 gm/ (Sodium Chloride) 50 mls @ 100 mls/hr IV Q24H [facility] Last Infusion: 04/01/24 02:30 Dose: Infused Documented By: TERRA Vancomycin HCl 1,000 mg/ (Sodium Chloride) 270 mls @ 270 mls/hr IV Q24H [facility] Last Infusion: 04/01/24 08:08 Dose: Infused Documented By: DIANA Melatonin (Melatonin 3 Mg Tablet) 6 mg PO BEDTIME PRN PRN Reason: Insomnia Metoprolol Succinate (Metoprolol Succinate Er 25 Mg Tab.Er.24h) 25 mg PO DAILY [facility]; Protocol Last Admin: 04/01/24 08:09 Dose: 25 mg Documented By: DIANA Midodrine (Midodrine Hcl 5 Mg Tablet) 5 mg PO TID [facility] Last Admin: 04/01/24 08:08 Dose: 5 mg Documented By: DIANA Omeprazole (Omeprazole 20 Mg Capsule.Dr) 20 mg PO DAILY@0630 [facility] Last Admin: 04/01/24 06:12 Dose: Not Given Documented By: TERRA Non-Admin Reason: pt n/v Ondansetron HCl (Ondansetron Hcl 4 Mg/2 Ml Vial) 4 mg IVPUSH Q8H PRN PRN Reason: Nausea and Vomiting Last Admin: 04/01/24 06:13 Dose: 4 mg Documented By: TERRA Pharmacy Consult (Consult Rx Vancomycin Dosing) 1 each MISCELLANE DAILY PRN PRN Reason: Consult order Sodium Chloride (0.9 % Sodium Chloride Flush 3 Ml Syringe) 3 ml IVFLUSH QSHIFT [facility] Last Admin: 04/01/24 08:13 Dose: 3 ml Documented By: DIANA Vitamin D (Cholecalciferol (Vitamin D3) 25 Mcg Tablet) 50 mcg PO DAILY [facility] Last Admin: 04/01/24 08:08 Dose: 50 mcg Documented By: DIANA Labs 04/01/24 05:49 04/01/24 05:49 Labs: Laboratory Results - last 24 hr 03/31/24 04/01/24 14:37 05:49 MCV 105.2 H MCH 35.8 H MCHC 34.0 RDW 16.8 H Plt Count 117 L MPV 11.3 Absolute Nucleated RBC 0.000 Nucleated RBC % (auto) 0.0 Anion Gap 12 Estim Creat Clear Calc 40.6 Estimated GFR 38 Fasting Glucose 87 Calcium 9.6 Total Bilirubin 4.4 H Direct Bilirubin 1.5 H AST 31 ALT 14 Alkaline Phosphatase 50 Total Protein 6.1 L Albumin 3.7 Hold Green Top See Note Ur Random Sodium < 20.0 Ur Random Potassium 24.5 Urine Creatinine 90.78 Microbiology Microbiology Results: Microbiology 03/30/24 Unknown Urine Culture - Preliminary Urine clean catch - Urine piña top Culture too young to evaluate. Assessment and Plan (1) SANDRA (acute kidney injury): Status: Acute Plan 74F PMH etoh dependence in remission, etoh cirrhosis, copd, hfref, htn, breast ca, mood disorder, sent to ED for elevated creatnine SANDRA on CKD 2 Likely due to diuretics, holding furosemide and Aldactone, given albumin, midodrine, monitor improved Alcoholic cirrhosis GI following Plan for diagnostic paracentesis on 04/02/2024 Left lower extremity erythema dermatitis vs cellulitis Continue IV vancomycin for now No sepsis UTI Continue IV ceftriaxone, follow-up cultures, no sepsis COPD Stable DVT prophylaxis with Lovenox Full Code reason for continued hospitalization: Acute kidney injury, close monitoring Quality Stroke Does the patient have a stroke diagnosis?: No VTE Prior VTE?: No VTE Risk Level:: Medical - moderate - high VTE Device Contraindication: Treatment Not Indicated VTE Drug Contraindication: N/A - Med Ordered
[2024-04-01] MEDS: Fluticasone/Umeclidinium/Vilanterol 200/62.5/25 BLST.W.DEV 1 PUFF INHALE (09:08)
[2024-04-01 09:10] VITALS: PULSE 68; RESP 18; O2SAT 93
--- NOTE | 2024-04-01 13:40 | P.PNGI_ITS ---
Subjective Subjective Date of Service: 04/01/24 Interval History: Seen and evaluated at bedside reports feeling much better in terms of breathing and energy levels. MAPs improved. Cr improved to 1.3 today. Awaiting US Abd and para. Critical Care Time (minutes): 0 Physical Exam 2 Vital Signs: Vital Signs: Last Vital Signs Temp 97.5 F 04/01/24 07:51 Pulse 68 04/01/24 09:10 Resp 18 04/01/24 09:10 BP 114/55 L 04/01/24 08:09 Pulse Ox 93 04/01/24 07:51 O2 Del Method Room Air 04/01/24 07:51 BMI result Body Mass Index 28.0 NAD No overt resp distress abd soft, distended, no guarding peripheral edema +++ Objective Data Labs 04/01/24 05:49 04/01/24 05:49 Labs: Laboratory Results - last 24 hr 03/31/24 04/01/24 14:37 05:49 WBC 6.9 RBC 2.32 L Hgb 8.3 L Hct 24.4 L MCV 105.2 H MCH 35.8 H MCHC 34.0 RDW 16.8 H Plt Count 117 L MPV 11.3 Absolute Nucleated RBC 0.000 Nucleated RBC % (auto) 0.0 Sodium 138 Potassium 3.9 Chloride 104 Carbon Dioxide 26 Anion Gap 12 BUN 21 H Creatinine 1.37 Estim Creat Clear Calc 40.6 Estimated GFR 38 Fasting Glucose 87 Calcium 9.6 Total Bilirubin 4.4 H Direct Bilirubin 1.5 H AST 31 ALT 14 Alkaline Phosphatase 50 Total Protein 6.1 L Albumin 3.7 Hold Green Top See Note Ur Random Sodium < 20.0 Ur Random Potassium 24.5 Urine Creatinine 90.78 Microbiology Microbiology Results: Microbiology 03/31/24 10:26 Blood - Venous Blood Culture - Preliminary No growth after 24 hours. 03/31/24 10:27 Blood - Venous Blood Culture - Preliminary No growth after 24 hours. 03/30/24 Unknown Urine clean catch - Urine piña top Urine Culture - Final Procedures Date of Service Date of Service: 04/01/24 Progress Note: A&P Assessment and plan (1) Decompensated hepatic cirrhosis: Status: Acute (2) SANDRA (acute kidney injury): Status: Acute (3) Ascites: Status: Acute (4) Abnormal MRI of abdomen: Status: Acute Plan Clinically improved from before. Awaiting para. - Cont to hOLD all diuretics - Cont albumin 25% 100ml QID today - Cont midodrine 5mg TID until para done and thereafter can be PRN for SBP <100. - US Abd with para pending. DIAGNOSTIC para only (i.e no more than 1L removed) pls send for cell count, culture, cytology - High protein diet - MRI liver protocol to be done this admission Time Spent With Patient Time: Total time managing care of this patient today ____ minutes. Quality Stroke Does the patient have a stroke diagnosis?: No VTE Prior VTE?: No VTE Risk Level:: Medical - moderate - high VTE Device Contraindication: Treatment Not Indicated VTE Drug Contraindication: N/A - Med Ordered
[2024-04-01 15:24] VITALS: BP 114/56; PULSE 64; RESP 16; TEMP 36.5; O2SAT 97
[2024-04-01 19:29] VITALS: BP 110/55; PULSE 69; RESP 18; TEMP 36.2; O2SAT 97
[2024-04-01] MEDS: Acetaminophen 325 MG TABLET 650 MG PO (19:36)
[2024-04-02] VITALS (9 sets, daily range): BP systolic 98–114; BP diastolic 51–56; PULSE 65–71; RESP 16–18; TEMP 36.2–36.5; O2SAT 93–96
[2024-04-02] MEDS: 0.9 % Sodium Chloride Flush 3 ML SYRINGE IVFLUSH ×3 (00:22→19:31)
[2024-04-02] MEDS: cefTRIAXone sodium 1 GM in 0.9 % Sodium Chloride 50 ML IV (00:50)
[2024-04-02] MEDS: Acetaminophen 325 MG TABLET 650 MG PO ×2 (04:58→19:29)
[2024-04-02] MEDS: Omeprazole 20 MG CAPSULE.DR PO (04:58)
[2024-04-02 05:56] LABS: Hematocrit 26.2 % (37.0-47.0); Hemoglobin 8.7 g/dl (12.0-16.0); Mean Corpuscular HGB Conc 33.2 g/dl (31.0-35.0); PLT CLUMP 1
[2024-04-02 05:58] LABS: Mean Corpuscular Hemoglobin 35.7 pg (27.0-33.0); Mean Corpuscular Volume 107.4 fL (80.0-98.0); Mean Platelet Volume 11.1 fL (9.4-12.3); Red Blood Count 2.44 X10*6/uL (4.20-5.50); Red Cell Distribution Width 16.7 % (11.0-16.0)
[2024-04-02 06:03] LABS: Platelet Count 131 X10*3/uL (160-400); White Blood Count 9.4 X10*3/uL (4.8-10.8)
[2024-04-02 06:05] LABS: Vancomycin Random 16.5 mcg/mL (15-20)
[2024-04-02 06:06] LABS: Alanine Aminotransferase 15 U/L (0-31); Albumin Level 3.5 g/dL (3.5-5.0); Alkaline Phosphatase 68 U/L (39-117); Anion Gap 15 (12-20); Aspartate Amino Transferase 34 U/L (5-31); Bilirubin Direct 1.6 mg/dL (0.0-0.5); Bilirubin Total 3.4 mg/dL (0.0-1.0); Blood Urea Nitrogen 20 mg/dL (9-16); Calcium 9.5 mg/dL (8.4-10.2); Carbon Dioxide 23 mmol/L (22-29); Chloride 105 mmol/L (96-108); Creatinine Clr Calc Pharmacy 41.2; Estimated Glomerular Filt Rate 39; Glucose Fasting 99 mg/dL (60-99); Magnesium 1.8 mg/dL (1.6-2.6); Sodium 139 mmol/L (135-145)
--- NOTE | 2024-04-02 06:25 | HE.PHANOTE ---
RE: VANCO DOSING Trough came back as 16.5 which is 2 points higher than expected. Renal function is improving but still not great. Dose is reduced to 750 mg q24h, predicted AUC = 465 and trough =14.9, next random is scheduled for 04/02/24 @0500.
[2024-04-02] MEDS: vancomycin HCL 750 MG in 0.9 % Sodium Chloride 250 ML 265 MG IV (06:34)
[2024-04-02] MEDS: Fluticasone/Umeclidinium/Vilanterol 200/62.5/25 BLST.W.DEV 1 PUFF INHALE (07:41)
[2024-04-02] MEDS: Midodrine HCl 5 MG TABLET PO ×3 (08:19→19:29)
[2024-04-02] MEDS: Aspirin Enteric Coated 81 MG TABLET.DR PO (08:19)
[2024-04-02] MEDS: Gabapentin 300 MG CAPSULE PO ×2 (08:19→19:29)
[2024-04-02] MEDS: Metoprolol Succinate ER 25 MG TAB.ER.24H PO (08:19)
[2024-04-02] MEDS: FLUoxetine HCl 20 MG CAPSULE 40 MG PO (08:19)
[2024-04-02] MEDS: Cholecalciferol (Vitamin D3) 25 MCG TABLET 50 MCG PO (08:19)
--- NOTE | 2024-04-02 09:23 | HO.PM.IMPN ---
Subjective Subjective Date of Service: 04/02/24 Interval History: n/v improved, lle not significantly changed Physical Exam Vital Signs: Vital Signs: Last Vital Signs Temp 97.2 F 04/02/24 07:40 Pulse 70 04/02/24 08:19 Resp 18 04/02/24 07:42 BP 105/52 L 04/02/24 08:19 Pulse Ox 96 04/02/24 07:40 O2 Del Method Room Air 04/02/24 07:40 BMI result Body Mass Index 28.0 NAD No overt resp distress abd soft, distended, no guarding peripheral edema +++ Objective Data Active Medications Acetaminophen (Acetaminophen 325 Mg Tablet) 650 mg PO Q6H PRN PRN Reason: Pain, Mild (Pain Scale 1-3) Last Admin: 04/02/24 04:58 Dose: 650 mg Documented By: PILAR Aspirin (Aspirin Enteric Coated 81 Mg Tablet.Dr) 81 mg PO DAILY [facility] Last Admin: 04/02/24 08:19 Dose: 81 mg Documented By: KAIDEN Enoxaparin Sodium (Enoxaparin Sodium 40 Mg/0.4 Ml Syringe) 40 mg SUBCUT Q24H [facility] Last Admin: 04/02/24 00:24 Dose: Not Given Documented By: PILAR Non-Admin Reason: Physician Held Med Fluoxetine HCl (Fluoxetine Hcl 20 Mg Capsule) 40 mg PO DAILY [facility] Last Admin: 04/02/24 08:19 Dose: 40 mg Documented By: KAIDEN Fluticasone/Umeclidinium/Vilanterol (Fluticasone/Umeclidinium/Vilanterol 200/62.5/25 Blst.W.Dev) 1 puff INHALE RDAILY [facility] Last Admin: 04/02/24 07:41 Dose: 1 puff Documented By: GABRIELE Furosemide (Furosemide 40 Mg/4 Ml Vial) 40 mg IVPUSH Q12H [facility]; Protocol Gabapentin (Gabapentin 300 Mg Capsule) 300 mg PO BID [facility] Last Admin: 04/02/24 08:19 Dose: 300 mg Documented By: KAIDEN Vancomycin HCl 750 mg/ Sodium (Chloride) 265 mls @ 265 mls/hr IV Q24H [facility] Last Infusion: 04/02/24 07:39 Dose: Infused Documented By: KAIDEN Albumin Human (Kedbumin 25 %) 100 mls @ 100 mls/hr IV Q1H [facility] Stop: 04/02/24 11:29 Melatonin (Melatonin 3 Mg Tablet) 6 mg PO BEDTIME PRN PRN Reason: Insomnia Metoprolol Succinate (Metoprolol Succinate Er 25 Mg Tab.Er.24h) 25 mg PO DAILY [facility]; Protocol Last Admin: 04/02/24 08:19 Dose: 25 mg Documented By: KAIDEN Midodrine (Midodrine Hcl 5 Mg Tablet) 5 mg PO TID [facility] Last Admin: 04/02/24 08:19 Dose: 5 mg Documented By: KAIDEN Omeprazole (Omeprazole 20 Mg Capsule.Dr) 20 mg PO DAILY@0630 [facility] Last Admin: 04/02/24 04:58 Dose: 20 mg Documented By: PILAR Ondansetron HCl (Ondansetron Hcl 4 Mg/2 Ml Vial) 4 mg IVPUSH Q8H PRN PRN Reason: Nausea and Vomiting Last Admin: 04/01/24 06:13 Dose: 4 mg Documented By: TERRA Pharmacy Consult (Consult Rx Vancomycin Dosing) 1 each MISCELLANE DAILY PRN PRN Reason: Consult order Sodium Chloride (0.9 % Sodium Chloride Flush 3 Ml Syringe) 3 ml IVFLUSH QSHIFT [facility] Last Admin: 04/02/24 07:14 Dose: Not Given Documented By: KAIDEN Non-Admin Reason: IV Running Vitamin D (Cholecalciferol (Vitamin D3) 25 Mcg Tablet) 50 mcg PO DAILY [facility] Last Admin: 04/02/24 08:19 Dose: 50 mcg Documented By: KAIDEN Labs 04/02/24 05:10 04/02/24 05:10 Labs: Laboratory Results - last 24 hr 04/02/24 05:10 MCV 107.4 H MCH 35.7 H MCHC 33.2 RDW 16.7 H Plt Count 131 L MPV 11.1 Absolute Nucleated RBC 0.000 Nucleated RBC % (auto) 0.0 Anion Gap 15 Estim Creat Clear Calc 41.2 Estimated GFR 39 Fasting Glucose 99 Calcium 9.5 Magnesium 1.8 Total Bilirubin 3.4 H Direct Bilirubin 1.6 H AST 34 H ALT 15 Alkaline Phosphatase 68 Total Protein 6.0 L Albumin 3.5 Random Vancomycin 16.5 Microbiology Microbiology Results: Microbiology 03/31/24 10:26 Blood Culture - Preliminary Blood - Venous No growth after 24 hours. 03/31/24 10:27 Blood Culture - Preliminary Blood - Venous No growth after 24 hours. 03/30/24 Unknown Urine Culture - Final Urine clean catch - Urine piña top Assessment and Plan (1) SANDRA (acute kidney injury): Status: Acute Plan 74F PMH etoh dependence in remission, etoh cirrhosis, copd, hfref, htn, breast ca, mood disorder, sent to ED for elevated creatnine SANDRA on CKD 2 Likely due to diuretics, given albumin, midodrine, monitor improved Alcoholic cirrhosis GI following Plan for diagnostic paracentesis on 04/02/2024 Left lower extremity erythema dermatitis vs cellulitis poor response to vanco favors dermatitis, will try to shift fluids with albumin and lasix dc vanc UTI cutlure negative, ruled out, will dc rocephin COPD Stable DVT prophylaxis with Lovenox Full Code reason for continued hospitalization: shifting fluid Quality Stroke Does the patient have a stroke diagnosis?: No VTE Prior VTE?: No VTE Risk Level:: Medical - moderate - high VTE Device Contraindication: Treatment Not Indicated VTE Drug Contraindication: N/A - Med Ordered
[2024-04-02] MEDS: Furosemide 40 MG/4 ML VIAL IVPUSH ×2 (10:20→19:29)
[2024-04-02] MEDS: Albumin Human 25 % 100 ML IV ×2 (10:21→11:42)
[2024-04-02] MEDS: Lidocaine HCl 1 % MPF 5 ML VIAL SUBCUT (14:33)
[2024-04-02 14:54] LABS: MN% 81.4 %; PMN% 18.6 %; WBC Peritoneal Fluid 0.355 X10*3/uL
[2024-04-02 14:55] LABS: RBC Peritoneal Fluid < 0.002 X10*6/uL
[2024-04-02 15:54] LABS: Basophils Peritoneal Fl 1 %; Lymphocyte Peritoneal Fl 10 %; Monocytes Peritoneal Fl 6 %; Neutrophils Peritoneal Fluid 5 %; Other Peritioneal Fl 78 %
[2024-04-02 15:55] LABS: BF Shift QC OK YES
--- NOTE | 2024-04-02 16:39 | PC.NURSE ---
[id number] received report from IR nurse Pt is s/p paracentesis 1L of fluid drained, small 2x2 gauze dressing to RLQ, Pt tolerated well. Upon assessment of Pt alert and oriented x 4, no pain reports, respirations even and unlabored, resting in bed with call dyson within reach.
[2024-04-03] MEDS: Enoxaparin Sodium 40 MG/0.4 ML SYRINGE SUBCUT (00:13)
[2024-04-03] MEDS: oxyCODONE HCl Immed Release 5 MG TABLET PO (00:46)
[2024-04-03 03:36] VITALS: BP 124/64; PULSE 72; RESP 18; TEMP 36.2; O2SAT 96
[2024-04-03] MEDS: Omeprazole 20 MG CAPSULE.DR PO (05:19)
[2024-04-03 05:55] LABS: Hemoglobin 8.1 g/dl (12.0-16.0); Mean Corpuscular HGB Conc 33.8 g/dl (31.0-35.0); Mean Corpuscular Hemoglobin 35.8 pg (27.0-33.0); Mean Corpuscular Volume 106.2 fL (80.0-98.0); Mean Platelet Volume 11.3 fL (9.4-12.3); Platelet Count 118 X10*3/uL (160-400); Red Blood Count 2.26 X10*6/uL (4.20-5.50); White Blood Count 8.1 X10*3/uL (4.8-10.8)
[2024-04-03 06:10] LABS: Alanine Aminotransferase 15 U/L (0-31); Albumin Level 3.7 g/dL (3.5-5.0); Alkaline Phosphatase 52 U/L (39-117); Anion Gap 13 (12-20); Aspartate Amino Transferase 31 U/L (5-31); Bilirubin Direct 1.4 mg/dL (0.0-0.5); Bilirubin Total 3.9 mg/dL (0.0-1.0); Blood Urea Nitrogen 20 mg/dL (9-16); Calcium 9.4 mg/dL (8.4-10.2); Carbon Dioxide 23 mmol/L (22-29); Chloride 107 mmol/L (96-108); Estimated Glomerular Filt Rate 37; Glucose Fasting 103 mg/dL (60-99); Potassium 3.8 mmol/L (3.3-5.1); Sodium 139 mmol/L (135-145); Total Protein 5.9 g/dL (6.5-8.0)
[2024-04-03] MEDS: Fluticasone/Umeclidinium/Vilanterol 200/62.5/25 BLST.W.DEV 1 PUFF INHALE (07:22)
[2024-04-03 07:24] VITALS: PULSE 72; RESP 18; O2SAT 96
[2024-04-03 07:28] VITALS: BP 116/57; PULSE 66; RESP 16; TEMP 36.3; O2SAT 92
[2024-04-03] MEDS: FLUoxetine HCl 20 MG CAPSULE 40 MG PO (07:48)
[2024-04-03] MEDS: Metoprolol Succinate ER 25 MG TAB.ER.24H PO (07:48)
[2024-04-03] MEDS: Cholecalciferol (Vitamin D3) 25 MCG TABLET 50 MCG PO (07:48)
[2024-04-03] MEDS: Midodrine HCl 5 MG TABLET PO (07:48)
[2024-04-03] MEDS: 0.9 % Sodium Chloride Flush 3 ML SYRINGE IVFLUSH (07:49)
[2024-04-03] MEDS: Aspirin Enteric Coated 81 MG TABLET.DR PO (07:49)
[2024-04-03] MEDS: Gabapentin 300 MG CAPSULE PO (07:49)
[2024-04-03] MEDS: Furosemide 40 MG/4 ML VIAL IVPUSH (09:12)
[2024-04-03] MEDS: Albumin Human 25 % 50 ML 100 ML IV (09:12)
--- NOTE | 2024-04-03 10:17 | P.DS_ITS ---
DS: Providers Provider Date of Service: 04/03/24 Date of admission: 03/31/24 00:40 Primary care physician: Adele Knight MD Consults: 03/31/24 08:28 Consult to Gastroenterology Routine Consulting Provider: Марина Montoya Reason for consultation: cirrhosis, sandra DS: Diagnosis Discharge Diagnosis (1) SANDRA (acute kidney injury): Status: Acute DS: Summary Hospital Course Hospital Course: from initial hpi: 74-year-old female with pertinent history of alcoholic cirrhosis, COPD not on home oxygen, congestive heart failure with preserved EF, hypertension, breast ca, mood disorder who presents to the emergency department for evaluation of abnormal labs. 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 Creatinine was found to be elevated and she was sent to the ER. Patient has been taking double dose of her Lasix for the last 3-4 days due to lower extremity swelling. Also noticed redness to her left lower extremity and she was prescribed p.o. antibiotics by urgent care. Denies orthopnea, dyspnea or PND. Also has abdominal swelling. Does endorse increased urinary frequency and urgency. No fever, chills, chest discomfort palpitations, abdominal pain, changes in bowel habits. Previous admission due to SANDRA which improved after giving colloids and holding diuretics. In the emergency department, patient was found to have SANDRA. hospital course: Patient was admitted for acute kidney injury on CKD 2, possibly due to over- diuresis and increased Aldactone dose. Was given albumin, midodrine, labs improved. For decompensated alcoholic cirrhosis she underwent diagnostic paracentesis which was negative for SBP. She was also noted to have significant lower extremity edema with erythema which was likely due to dermatitis and not cellulitis as did not improve on IV vancomycin but did improve after shifting fluids with albumin and IV Lasix. Initially treated for urinary tract infection but culture was negative antibiotics were discontinued. For COPD she remained stable. patient should follow up with gi, plan for outpatient mri liver protocol. Time Attestation Discharge Coordination Time (in mins): 35 Quality: Safe Use of Opioids Does Pt have an Active Cancer Diagnosis on the Problem List?: No Quality: Stroke Does the patient have a stroke diagnosis?: No Physical Exam Vital Signs: Vital Signs: Last Vital Signs Temp 97.4 F 04/03/24 07:28 Pulse 66 04/03/24 07:28 Resp 16 04/03/24 07:28 BP 116/57 L 04/03/24 07:28 Pulse Ox 92 04/03/24 07:28 O2 Del Method Room Air 04/03/24 07:28 BMI result Body Mass Index 28.0 General: AO X 3, no acute distress Resp: CTA bilateral, no accessory muscles used CVS: S1,S2,RRR GI: soft, non tender, non distended Neuro: motor grossly intact, alert Psych: appropriate affect, appropriate insight improved peripheral edema, erythema and warmth resolved DS: Data Data Completed and Pending Completed studies during hospitalization [Text1]: Procedures Drainage of Peritoneal Cavity, Percutaneous Approach (05/26/23) Pending studies at discharge: Pending at discharge 04/02/24 14:10 Cytology [PTH] Routine Labs on day of discharge: Laboratory Results - last 24 hr 04/02/24 04/03/24 14:00 04:57 WBC 8.1 RBC 2.26 L Hgb 8.1 L Hct 24.0 L MCV 106.2 H MCH 35.8 H MCHC 33.8 RDW 17.0 H Plt Count 118 L MPV 11.3 Absolute Nucleated RBC 0.000 Nucleated RBC % (auto) 0.0 Sodium 139 Potassium 3.8 Chloride 107 Carbon Dioxide 23 Anion Gap 13 BUN 20 H Creatinine 1.39 Estim Creat Clear Calc 40.0 Estimated GFR 37 Fasting Glucose 103 H Calcium 9.4 Total Bilirubin 3.9 H Direct Bilirubin 1.4 H AST 31 ALT 15 Alkaline Phosphatase 52 Total Protein 5.9 L Albumin 3.7 Peritoneal WBC 0.355 Peritoneal RBC < 0.002 Periton Neutrophils 5 Periton Lymphocytes 10 Peritoneal Monocytes 6 Peritoneal Basophils 1 Peritoneal Other Cells 78 Preliminary micro results at discharge 04/02/24 14:00 Anaerobic Culture - Preliminary Ascites Fluid No growth to date. Body Fluid Culture - Preliminary No growth to date. 03/31/24 10:26 Blood Culture - Preliminary Blood - Venous No growth after 48 hours. 03/31/24 10:27 Blood Culture - Preliminary Blood - Venous No growth after 48 hours. Discharge Plan Discharge Anticipated Discharge Date/Time: 04/03/24 10:14 Patient Disposition: Home, Self-Care Discharge Diagnosis: sandra Referrals: Adele Knight MD [Primary Care Provider] - 1 Week Discharge Medications: New midodrine 5 mg Tablet 5 mg PO TID Qty: 270 0RF furosemide 20 mg tablet 20 mg PO DAILY Qty: 90 0RF Continued albuterol sulfate 90 mcg/actuation HFA aerosol inhaler 1 puff inhalation QID PRN (Reason: for wheezing) Qty: 17 4RF metoprolol succinate 25 mg tablet extended release 24 hr 25 mg PO DAILY Qty: 90 3RF fluoxetine 40 mg capsule 40 mg PO DAILY Qty: 90 3RF gabapentin 300 mg capsule 300 mg PO BID Qty: 180 1RF Trelegy Ellipta 200-62.5-25 mcg blister with device 1 inh inhalation DAILY Qty: 180 3RF (DME) compression stockings See Rx Instructions .Route .MEDSUPPLY Qty: 1 0RF Rx Instructions: 20-30 mm Hg; over the calf omeprazole 20 mg Capsule,Delayed Release(Dr/Ec) 20 mg PO DAILY vitamin B complex Tablet 1 tab PO Q48H acetaminophen 500 mg Tablet 500 mg PO BID PRN (Reason: Pain) aspirin 81 mg tablet,delayed release (DR/EC) 81 mg PO DAILY cholecalciferol (vitamin D3) 50 mcg (2,000 unit) capsule 50 mcg PO DAILY Changed spironolactone 50 mg tablet 50 mg PO DAILY 90 Days Qty: 180 1RF Diet: Advance to usual diet Activity on Discharge: As tolerated Stand Alone Forms: Patient Portal Discharge page Print Language: Estonian Care Plan Goals: manage cirrhosis Health Concerns: cirrhosis Plan of Treatment: follow up with gi, meds as prescribed Assessment: see above
--- NOTE | 2024-04-03 13:20 | MHC.CM.PN ---
DP:PT HAS BEEN MEDICALLY CLEARED FOR DC HOME, NO SERVICES. DAUGHTER WILL TRANSPORT HOME.
[2024-04-04 07:43] LABS: Albumin Peritoneal Fluid 1.2
[2024-04-04 07:45] LABS: Total Protein Peritoneal Fluid 1.8
== END 2024-04-03 14:45 | disposition home or self-care (01) | DRG 432 ==
LOC: HO.ED 03-31 00:40 → HO.EDOVER 03-31 00:51 → HO.S3 03-31 14:00
PROVIDERS: Internal Medicine; Nurse Practitioner Family; Admitting Provider Student in an Organized Health Care Education/Training Program; Emergency Provider Emergency Medicine; PCP Internal Medicine; Visit Provider Internal Medicine
DX: K70.31 Alcoholic cirrhosis of liver with ascites (principal); I50.33 Acute on chronic diastolic (congestive) heart failure; N17.0 Acute kidney failure with tubular necrosis; I13.0 Hypertensive heart and chronic kidney disease with heart failure and stage 1 through stage 4 chronic kidney disease, or unspecified chronic kidney disease; L03.116 Cellulitis of left lower limb; I87.2 Venous insufficiency (chronic) (peripheral); N18.2 Chronic kidney disease, stage 2 (mild); F39 Unspecified mood [affective] disorder; I11.0 Hypertensive heart disease with heart failure; J44.9 Chronic obstructive pulmonary disease, unspecified; Z85.3 Personal history of malignant neoplasm of breast; Z79.51 Long term (current) use of inhaled steroids; Z79.82 Long term (current) use of aspirin; Z79.899 Other long term (current) drug therapy
CPT/HCPCS: 36415; 49083; 71046; 80048; 80053; 80076; 80202; 80307; 81001; 82042; 82570; 83735; 83880; 84133; 84157; 84300; 85025; 85027; 85610; 87040; 87070; 87073; 87086; 87205; 88112; 88305; 89051; 93005; 93970; 99221; 99285; J0696; J1650; J1940; J2405; J3370; J3371; J3475; P9047

== ENCOUNTER → 2024-03-30 17:25 | Outpatient (BNV) | payer MEDICARE, SELFPAY | PROVIDERS: Admitting Provider Student in an Organized Health Care Education/Training Program; Emergency Provider Emergency Medicine; PCP Internal Medicine; Visit Provider Internal Medicine Cardiovascular Disease | DX: R94.31 Abnormal electrocardiogram [ECG] [EKG] (principal) | CPT/HCPCS: 93010 ==

== ENCOUNTER 2024-03-31 00:40 | Outpatient (BNV) | payer MEDICARE, SELFPAY | END 2024-04-02 14:00 | PROVIDERS: Admitting Provider Student in an Organized Health Care Education/Training Program; Emergency Provider Emergency Medicine; PCP Internal Medicine; Visit Provider Physician Assistant Surgical | DX: R18.8 Other ascites (principal) | CPT/HCPCS: 49083 ==

== ENCOUNTER → 2024-03-31 00:40 | Outpatient (BNV) | payer MEDICARE, SELFPAY | PROVIDERS: Admitting Provider Student in an Organized Health Care Education/Training Program; Emergency Provider Emergency Medicine; PCP Internal Medicine; Visit Provider Student in an Organized Health Care Education/Training Program | DX: N17.9 Acute kidney failure, unspecified (principal) | CPT/HCPCS: 99223; 99232; 99239; 99499 ==

== ENCOUNTER → 2024-03-31 00:40 | Outpatient (BNV) | payer MEDICARE, SELFPAY | PROVIDERS: Admitting Provider Student in an Organized Health Care Education/Training Program; Emergency Provider Emergency Medicine; PCP Internal Medicine; Visit Provider Internal Medicine | DX: N17.9 Acute kidney failure, unspecified (principal); K70.31 Alcoholic cirrhosis of liver with ascites; R60.0 Localized edema; K86.2 Cyst of pancreas; K72.90 Hepatic failure, unspecified without coma; K74.60 Unspecified cirrhosis of liver; N39.0 Urinary tract infection, site not specified | CPT/HCPCS: 99223; 99232 ==

== ENCOUNTER 2024-04-18 08:05 | Outpatient (AMB) | payer MEDICARE, SELFPAY ==
--- NOTE | 2024-04-18 08:15 | A.OFFPC_ITS ---
Vital Signs 04/18/24 08:16 Height 5 ft 7 in Weight 180 lb BMI 28.2 BP 100/64 Blood Pressure Location Lt brachial Position Sitting Pulse 68 Pulse Source Pulse Oximeter Pulse Oximetry (%) 98 Oxygen Delivery Method Room Air Intake Visit Reasons: Swollen belly/both legs (rt leg worse) Intake Note: Pt is here today for a Hospital follow up visit form [facility]. Pt states that her leg s are still swollen. Pt started vomiting in the waiting room she states that this happens on and off. Allergies hydromorphone [From DILAUDID] Allergy (Intermediate, Verified 04/18/24 08:20) hives, itching losartan Allergy (Intermediate, Verified 04/18/24 08:20) Angioedema tramadol [From ULTRAM] Allergy (Intermediate, Verified 04/18/24 08:20) hives,itching Medication List - Last Reconciled 04/18/24 by Adele Knight MD acetaminophen 500 mg PO BID PRN albuterol sulfate 90 mcg/actuation 1 puff inhalation QID PRN aspirin 81 mg PO DAILY cholecalciferol (vitamin D3) 50 mcg PO DAILY [compression stockings 20-30 mm Hg; over the calf] fluoxetine 40 mg PO DAILY [id number]-[id number]-igdggpqd 200-62.5-25 mcg (Trelegy Ellipta) 1 inh inhalation DAILY furosemide 20 mg PO DAILY gabapentin 300 mg PO BID metoprolol succinate ER 25 mg PO DAILY midodrine 5 mg PO TID omeprazole 20 mg PO DAILY spironolactone 50 mg PO DAILY 90 days vitamin B complex 1 tab PO Q48H Tobacco use date assessed: 03/06/24 Dental Screening Dental Screen Date: 03/06/24 HPI Swollen belly/both legs (rt leg worse) HPI Details Patient presents for a follow-up of liver cirrhosis COPD chronic lower extremity edema. She complains of increasing abdominal swelling and lower extremity swelling. Patient had paracentesis 2 weeks ago for recurrent ascites. She has been taking furosemide and spironolactone which dose was decreased because of worsening renal function. Patient follows up with GI regularly. She complains of vertigo with nausea and vomiting since this morning. She denies fever chills abdominal pain diarrhea constipation PFSH Medical History Neuropathy Hx of screening mammography Vitamin B12 deficiency Vitamin D deficiency Annual physical exam Breast CA (~03/01/23) Flank pain, chronic Hx of abdominal pain Excessive drinking of alcohol COPD (chronic obstructive pulmonary disease) Pulmonary nodules Atrial arrhythmia NICM (nonischemic cardiomyopathy) Cardiac LV ejection fraction of 40-49% Osteoarthritis Colonoscopy refused Muscle spasm History of breast cancer in female Chronic GERD Anxiety, generalized Surgical History History of esophagogastroduodenoscopy (EGD) H/O colonoscopy History of removal of Port-a-Cath History of hysterectomy History of section H/O right mastectomy Family History Father Non-Hodgkin lymphoma Mother CVD (cardiovascular disease) Brother Lung disease Sister No problems noted. Maternal Grandfather Colon cancer Maternal Grandmother CVD (cardiovascular disease) Paternal Grandfather Unknown family medical history Paternal Grandmother Unknown family medical history Brother No problems noted. Son No problems noted. Son No problems noted. Daughter No problems noted. 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 Mohit Israel, Krystal Kelsey, Khanh Davis and colleagues, with an educational apple from [employer]. Review of Systems Const All systems reviewed & are unremarkable except as noted in HPI and below Eyes Reports no additional complaints ENT Reports no additional complaints Card Reports no additional complaints Resp Reports no additional complaints GI Reports no additional complaints Reports no additional complaints Physical exam (Primary Care) Vital Signs: Last Vital Signs Pulse 68 04/18/24 08:16 BP 100/64 04/18/24 08:16 Pulse Ox 98 04/18/24 08:16 Oxygen Delivery Method Room Air 04/18/24 08:16 BMI result Body Mass Index 28.2 Tobacco/Smoking Status: Tobacco use Status Tobacco use date assessed 03/06/24 04/18/24 08:20 Patient Tobacco Use Status Former Tobacco user 04/18/24 08:20 Tobacco use type Cigarette 04/18/24 08:20 e-Cigarette/Vaping Use Never Used 04/18/24 08:20 Thrive Assessment: Date of Thrive Assessment Date Thrive assessed 03/31/24 04/18/24 08:20 Const General: no acute distress HENMT Head: Yes normal to inspection Ears: hearing grossly normal bilaterally Eyes General: appearance normal, both eyes and all related structures Neck Neck: Yes supple Resp Effort & Inspection: normal respiratory effort Auscultation: diminished lung sounds Cardio Rhythm: regular rhythm Heart sounds: S1 normal heart sound present and S2 normal heart sound present GI Inspection: Yes distended Palpation (GI): Soft to palpation and No Rebound tenderness present Auscultation: normal bowel sounds Extrem Other: 3+ pitting edema bilaterally Assessment and Plan Assessment & Plan (1) Ascites: Code(s): R18.8 - Other ascites Plan: Obtain abdominal ultrasound to evaluate for ascites. Continue current medications (2) Decompensated hepatic cirrhosis: Code(s): K72.90 - Hepatic failure, unspecified without coma; K74.60 - Unspecified cirrhosis of liver Plan: Follow-up with GI continue current medications (3) CKD (chronic kidney disease) stage 3, GFR 30-59 ml/min: Code(s): N18.30 - Chronic kidney disease, stage 3 unspecified Plan: Monitor renal function avoid nephrotoxins check comprehensive panel today (4) Nausea & vomiting: Code(s): R11.2 - Nausea with vomiting, unspecified Plan: Try Zofran increase fluid intake for any worsening symptoms patient was advised to go to the ER Orders: Orders Complete Blood Count Auto Diff Today K72.90 - Hepatic failure, unspecified without coma, K74.60 - Unspecified cirrhosis of liver, N18.30 - Chronic kidney disease, stage 3 unspecified, R18.8 - Other ascites US abdomen limited Today K72.90 - Hepatic failure, unspecified without coma, K74.60 - Unspecified cirrhosis of liver, N18.30 - Chronic kidney disease, stage 3 unspecified, R18.8 - Other ascites Comprehensive Met. Panel Today K72.90 - Hepatic failure, unspecified without coma, K74.60 - Unspecified cirrhosis of liver, N18.30 - Chronic kidney disease, stage 3 unspecified, R18.8 - Other ascites IRON PROFILE Today K72.90 - Hepatic failure, unspecified without coma, K74.60 - Unspecified cirrhosis of liver, N18.30 - Chronic kidney disease, stage 3 unspecified, R18.8 - Other ascites Medications: New ondansetron 4 mg PO BID-TID PRN 20 tabs 0RF nausea and vomiting Coding Level of Care Code Est Pt Level 4 (30110) Diagnoses Ascites R18.8 Decompensated hepatic cirrhosis K72.90; K74.60 CKD (chronic kidney disease) stage 3, GFR 30-59 ml/min N18.30 Nausea & vomiting R11.2
[2024-04-18 08:16] VITALS: BP 100/64; PULSE 68; O2SAT 98; BMI 28.2
== END 2024-04-18 12:48 | disposition home or self-care (01) ==
PROVIDERS: PCP Internal Medicine; Visit Provider Internal Medicine
DX: R18.8 Other ascites (principal); K72.90 Hepatic failure, unspecified without coma; K74.60 Unspecified cirrhosis of liver; N18.30 Chronic kidney disease, stage 3 unspecified; R11.2 Nausea with vomiting, unspecified
CPT/HCPCS: 99214

== ENCOUNTER 2024-04-18 09:14 | Outpatient (REF) | payer MEDICARE, SELFPAY ==
--- NOTE | ~2024-04-18 | US_ITS ---
EXAMINATION: US ABDOMEN LIMITED CLINICAL INFORMATION: Evaluate for associated. COMPARISON: 05/02/2024 TECHNIQUE: Real-time imaging of the right upper quadrant abdominal viscera. FINDINGS: Moderate to severe ascites identified through the oral 4 corners of the abdomen and midline. Visualized liver is small and echogenic due to cirrhosis. US/US abdomen limited IMPRESSION: Moderate to severe amount of ascites and hepatic cirrhosis
[2024-04-18 11:13] LABS: MANUAL DIFF FLAG NO
[2024-04-18 11:32] LABS: Basophils Absolute Auto 0.1 X10*3/uL (0.0-0.2); Basophils Percent Auto 0.8 % (0-2); Eosinophils Absolute Auto 0.1 X10*3/uL (0.0-0.4); Eosinophils Percent Auto 1.6 % (0-4); Hemoglobin 9.6 g/dl (12.0-16.0); Imm Gran Abs Auto 0.05 X10*3/uL (0.00-0.03); Imm Gran Pct Auto 0.7 % (0.0-0.4); Lymphocytes Absolute Auto 1.9 X10*3/uL (1.2-4.9); Lymphocytes Percent Auto 25.6 % (20-40); Mean Corpuscular HGB Conc 33.1 g/dl (31.0-35.0); Mean Corpuscular Hemoglobin 36.2 pg (27.0-33.0); Mean Corpuscular Volume 109.4 fL (80.0-98.0); Mean Platelet Volume 11.5 fL (9.4-12.3); Monocytes Percent Auto 12.8 % (2-11); Neutrophils Absolute Auto 4.3 x10*3/uL (2.0-8.3); Neutrophils Percent Auto 58.5 % (45-73); Platelet Count 163 X10*3/uL (160-400); Red Blood Count 2.65 X10*6/uL (4.20-5.50); Red Cell Distribution Width 17.9 % (11.0-16.0); White Blood Count 7.4 X10*3/uL (4.8-10.8)
[2024-04-18 12:18] LABS: Alanine Aminotransferase 20 U/L (0-31); Albumin Level 3.5 g/dL (3.5-5.0); Alkaline Phosphatase 83 U/L (39-117); Anion Gap 15 (12-20); Aspartate Amino Transferase 45 U/L (5-31); Bilirubin Total 7.2 mg/dL (0.0-1.0); Blood Urea Nitrogen 20 mg/dL (9-16); Calcium 9.9 mg/dL (8.4-10.2); Carbon Dioxide 25 mmol/L (22-29); Chloride 104 mmol/L (96-108); Estimated Glomerular Filt Rate 37; Glucose Random 110 mg/dL (60-115); Iron 205 mcg/dL (30-160); Percent Iron Saturation 89 % (15-50); Potassium 4.4 mmol/L (3.3-5.1); Sodium 140 mmol/L (135-145); Total Iron Binding Capacity 230 mcg/dL (228-428); Total Protein 6.6 g/dL (6.5-8.0); Unsaturated Iron Binding < 25 ug/dL
== END 2024-04-18 09:15 | disposition home or self-care (01) ==
LOC: HO.HMGCLDS 09:14
PROVIDERS: PCP Internal Medicine; Visit Provider Internal Medicine
DX: R18.8 Other ascites (principal); K72.90 Hepatic failure, unspecified without coma; K74.60 Unspecified cirrhosis of liver; N18.30 Chronic kidney disease, stage 3 unspecified
CPT/HCPCS: 36415; 76705; 80053; 83540; 85025

== ENCOUNTER 2024-05-11 10:47 | Outpatient (REF) | payer MEDICARE, SELFPAY ==
--- NOTE | ~2024-05-11 | MR_ITS ---
EXAMINATION: MR ABDOMEN WITHOUT AND WITH CONTRAST CLINICAL INFORMATION: Follow-up left hepatic lobe lesion COMPARISON: MRI abdomen on 12/27/2023 TECHNIQUE: Examination was performed in a high field strength MRI scanner. Multiplanar multiphasic imaging of the abdomen was performed without IV contrast enhancement. Multiphasic Axial T1 weighted fat suppressed images of the upper abdomen were obtained after IV injection of 8 mL Gadavist. Coronal T1 weighted fat-suppressed images of the abdomen were obtained following the dynamic axial series. FINDINGS: The current examination is markedly limited by respiratory motion blurring. LIVER: The liver appears markedly shrunken with lobulated border consistent with macronodular hepatic cirrhosis. The previously reported left hepatic lobe segment 4A questionable observation could not be visualized on the postcontrast images markedly degraded by respiratory motion. The calculated hepatic fat percentage is 3.5%, compatible with normal. HEPATOBILIARY: Gallbladder is normal without filling defects. Common bile duct is not dilated. PANCREAS: There is limited visualization of a persistent T2 hyperintense nonenhancing pancreatic uncinate process cystic lesion, measuring 1.5 cm in horizontal diameter, 1.4 cm in vertical height (previously 2.1 cm), series 5 image #23, series 4 image #19. SPLEEN: Spleen is borderline enlarged, measuring 13.6 cm in oblique vertical length (previously 13.4 cm). A persistent 1 cm T2 hyperintense lesion is present in lateral lower splenic body, previously reported as cyst. ADRENAL: Bilateral adrenal glands are normal in shape and size. KIDNEYS: Bilateral kidneys are normal in size without focal lesion. There is interval marked increase in abdominal ascites. Right breast implant is partially visualized. 50% chronic compression fracture of L1 is again visualized, without bone marrow edema. MR/MR abdomen wo/w con IMPRESSION: 1. Markedly limited examination due to respiratory motion blurring, even more severely degraded image quality than on previous examination. 2. The previously reported left hepatic lobe segment 4A questionable observation could not be visualized on the postcontrast images markedly degraded by respiratory motion. 3. Unchanged advanced hepatic cirrhosis. Marked interval increase in abdominal ascites. 4. Persistent pancreatic uncinate process cystic lesion, measuring 1.5 cm in horizontal diameter, 1.4 cm in vertical height (previously 2.1 cm). 5. Persistent 1 cm splenic cyst. 6. Unchanged 50% chronic compression fracture of L1. 7. Unchanged right breast implant.
[2024-05-11] MEDS: gadobutroL 10 ML VIAL IVPUSH (12:23)
== END 2024-05-11 10:48 | disposition home or self-care (01) ==
LOC: HO.MRI 10:47
PROVIDERS: PCP Internal Medicine; Visit Provider Internal Medicine
DX: R93.5 Abnormal findings on diagnostic imaging of other abdominal regions, including retroperitoneum (principal); K76.89 Other specified diseases of liver
CPT/HCPCS: 74183; A9585

== ENCOUNTER 2024-05-17 07:11 | Day surgery (SDC) | payer MEDICARE, SELFPAY ==
--- NOTE | 2024-05-11 07:42 | PC.NURSE ---
called patient left a message pt no show
--- NOTE | ~2024-05-17 | US_ITS ---
Ultrasound paracentesis History: Ascites. Risks and benefits and possible complications were discussed with the patient and consent form was signed. A safe pocket of ascitic fluid was identified using ultrasound guidance, and the overlying skin was marked. The abdomen prepped and draped in sterile fashion. 1% lidocaine was used as a local anesthetic. Using ultrasound guidance, a 5 fr catheter was placed into the ascitic pocket. 2.4 liters of yellow fluid was removed passively. The catheter was then removed. A few vaccine customer representative images from before and after the examination were obtained. The procedure was performed by Vini Reeves PA-C and supervised by Dr. Prieto. US/US paracentesis abd w/image Impression: Ultrasound-guided paracentesis as described above. No immediate complications
[2024-05-17 07:37] VITALS: BMI 27.1
[2024-05-17] MEDS: Lidocaine HCl 1 % MPF 5 ML VIAL SUBCUT (10:34)
[2024-05-17 10:45] VITALS: BP 124/60; PULSE 69; RESP 18; TEMP 36.1; O2SAT 98
[2024-05-17 11:00] VITALS: BP 120/61; PULSE 64; RESP 18; TEMP 36.1; O2SAT 98
== END 2024-05-17 11:07 | disposition home or self-care (01) ==
PROVIDERS: Physician Assistant Surgical; PCP Internal Medicine; Visit Provider Internal Medicine Gastroenterology
DX: R18.8 Other ascites (principal); K76.9 Liver disease, unspecified; F10.10 Alcohol abuse, uncomplicated; Z79.899 Other long term (current) drug therapy; Z88.8 Allergy status to other drugs, medicaments and biological substances; Z87.891 Personal history of nicotine dependence
CPT/HCPCS: 49083

== ENCOUNTER → 2024-05-17 09:30 | Outpatient (BNV) | payer MEDICARE, SELFPAY | PROVIDERS: PCP Internal Medicine; Visit Provider Physician Assistant Surgical | DX: R18.8 Other ascites (principal) | CPT/HCPCS: 49083 ==

== ENCOUNTER 2024-06-01 12:50 | Outpatient (AMB) | payer MEDICARE, SELFPAY ==
--- NOTE | 2024-06-01 13:03 | A.OFFVIS_ITS ---
Vital Signs 06/01/24 13:05 Height 5 ft 7 in Weight 170 lb BMI 26.6 BP 128/53 L Blood Pressure Location Lt brachial Position Sitting Pulse 63 Intake Visit Reasons: Cirrhosis follow up Intake Note: Sherin presents in the office as a follow up for Cirrhosis. CC: Patient states that her legs are swollen - she has tenderness and soreness on the right calf - she states it feels almost like an infection. Left leg is a lot better. Other concern she states that she will feel sick to her stomach and she will throat up bile. She states that it happens pretty frequent and comes with no warnings. Transmitter Engineer In Charge Required: No Allergies hydromorphone [From DILAUDID] Allergy (Intermediate, Verified 06/01/24 13:05) hives, itching losartan Allergy (Intermediate, Verified 06/01/24 13:05) Angioedema tramadol [From ULTRAM] Allergy (Intermediate, Verified 06/01/24 13:05) hives,itching HPI Comments Details: 73 YF with COPD, HTN, HFpEF, (EF 55-60% on 03/04/2022), IBS, hx of breast cancer, and hx of alcohol use disorder who is presenting for follow up. Inpatient consultation 05/27/23: Patient stated that her symptoms began 3-4? weeks ago with edema of her lower extremities.? Pt was seen at [facility] and started on Lasix and dose increased to 40 mg twice daily. Despite increasing her furosemide from 20 mg to 40 mg daily and then 40 mg b.i.d. and wearing compression stockings, patient's symptoms did not improve. Outpatient labs were significant for rapid decline in renal function and she was therefore admitted to the hospital for further management. Underwent albumin IV 100g/day infusion x 3 days with improvement in Cr to 1.5. Baseline appears to be 1.2-1.3. 06/08/23: Pt presents to the office today for follow up, reports shortness of breath has gradually worsened. Notices the girth of the abdomen is unchanged. Has more discomfort in her legs now lilly on walking. Remains abstinent from etOH last drink was on 02/26/23. Continues to be OFF diuretics. Office had called her x 2 to get blood work done however this is still pending. Weight today is 225#. Dry weight appears to be between 218-220 based on review of chart. Has follow up with Renal next week. Also getting another echo done next month. (prev hx of NICM from etOH vs chemo) Previous endoscopy: 03/2021 (Dr Brennan) EGD: gastritis, possible candidal esophagitis vs EoE Colonoscopy: Internal hemorrhoids, diverticular disease 07/19/23: EGD Flat varices. Portal hypertensive gastropathy. Normal duodenum 08/03/23: Seen in office for follow up. Reviewed the results of the EGD and that will need a repeat EGD in 2 years as long as remains sober from etOH. Was encouraged to bring up any relapses to our attention. Pt also mentions blood work done through PCP's office last week. Reveiwed, kidney function seems to have declined compared to before. Cont on spironolactone 100 and lasix 20. Weight today 178#, albeit has also been trying to intentionally lose some weight. 09/05/23: Here for 4 weeks follow up. Reports feeling good. No abd pain, N,V. Reports good appetite. No fluid accumulation noted for over 2 months. Taking Aldactone 100mg once daily. Renal function from 08/24 good, weight stable at 178#. 12/05/23: Reports having significant diarrhea for the past 3 days with abd cramping and incontinence. Was on Augmentin for suspected otitis up till a week ago. Appetite is also down with this and feels more fatigued. Also reports feeling foggy and inattentive, having trouble concentrating. Current meds: Spironolactone 100 Metoprolol 50 once daily mag oxide 01/13/24: Has been taking tylenol and gabapentin for knee pain and back pain which helps. No GI related complaints but still has periods of feeling foggy and feels not as sharp . Rifaximin had 500 OOP so did not take it. Diarrhea resolved with discontinuing mag oxide. Taking yolande 75 daily for ascites. MRI results reviewed and ed for 3m follow up MRI for LIRADS 3 lesion. 06/01/24: Was admitted in hosp in March for SANDRA/HRS managed with albumin and midodrine. Main complaint today is right lower extremity swelling and pain for the last 10 days. In addition, has also been feeling gradually unsteady on her feet, despite taking all her multivitamins. On exam, also appears to have ascites accumulated. Patient reports that a para 2 weeks ago. She also had a repeat MRI to follow up on the LI-RADS 3 lesion, but report not finalized yet. Current meds: Furosemide 20 Spironolactone 50 Metoprolol 25 once daily Midodrine 5 TID PFSH Medical History Neuropathy Hx of screening mammography Vitamin B12 deficiency Vitamin D deficiency Annual physical exam Breast CA (~03/01/23) Flank pain, chronic Hx of abdominal pain Excessive drinking of alcohol COPD (chronic obstructive pulmonary disease) Pulmonary nodules Atrial arrhythmia NICM (nonischemic cardiomyopathy) Cardiac LV ejection fraction of 40-49% Osteoarthritis Colonoscopy refused Muscle spasm History of breast cancer in female Chronic GERD Anxiety, generalized Surgical History History of esophagogastroduodenoscopy (EGD) H/O colonoscopy History of removal of Port-a-Cath History of hysterectomy History of section H/O right mastectomy Family History Father Non-Hodgkin lymphoma Mother CVD (cardiovascular disease) Brother Lung disease Sister No problems noted. Maternal Grandfather Colon cancer Maternal Grandmother CVD (cardiovascular disease) Paternal Grandfather Unknown family medical history Paternal Grandmother Unknown family medical history Brother No problems noted. Son No problems noted. Son No problems noted. Daughter No problems noted. 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: No Hearing needs: No Vision needs: Yes (wears glasses ) Review of Systems Const All systems reviewed & are unremarkable except as noted in HPI and below Physical Exam Vital Signs: Last Vital Signs Pulse 63 06/01/24 13:05 BP 128/53 L 06/01/24 13:05 BMI result Body Mass Index 26.6 Frail female No apparent distress Nonicteric Abdomen soft, nontender, distended, positive shifting dullness Awake and alert, oriented x3, asterixis Right lower extremity pitting edema +3, Assessment & Plan Assessment & Plan (1) Leg edema: Code(s): R60.0 - Localized edema Category: Medical (2) Ascites: Code(s): R18.8 - Other ascites Category: Medical (3) Hepatic encephalopathy: Code(s): K76.82 - Hepatic encephalopathy Category: Medical (4) Liver cirrhosis: Code(s): K74.60 - Unspecified cirrhosis of liver Category: Medical (5) Liver cyst: Code(s): K76.89 - Other specified diseases of liver Category: Medical (6) Peripheral edema: Code(s): R60.0 - Localized edema Category: Medical (7) Abnormal MRI of abdomen: Code(s): R93.5 - Abnormal findings on diagnostic imaging of other abdominal regions, including retroperitoneum Category: Medical (8) Pancreas cyst: Code(s): K86.2 - Cyst of pancreas Category: Medical (9) Gait instability: Code(s): R26.81 - Unsteadiness on feet Category: Medical (10) Frailty: Code(s): R54 - Age-related physical debility Category: Medical Plan #Decomp etOH assoc cirrhosis - MELD-Na 18, Child Tracey Class B - ascites diuretics - Hepatic encephalopathy EtOH use disorder in remission Quit date 02/26/2023. Reviewed with the patient that after some initial improvement in liver function, now appears to gradually deteriorate. Appears markedly frail and under nourished today. She was also reminded to restart her lactulose, due to ongoing hepatic encephalopathy. In terms of her right leg edema and pain, will check a duplex to rule out DVT. Plan: - INCREASE spironolactone to 100mg PO daily - Cont lasix 20mg for now - Check BMP today and again in 2 weeks - Salt restriction reviewed - Check duplex LE for R leg - Restart lactulose for covert HE. Goal 2-3 BMs per day. - Awaiting MRI report - Variceal screening: Next EGD due 06/2025. Of note pt on low dose metoprolol due to PVCs. - Pain control: Avoid NSAIDs. Tylenol ok up to 2g/day. - Updated MELD labs. Once available, will send transplant referral - CRC screening: good quality colo in 2020- repeat recommended in 10 years. Follow up 4 weeks Orders: Orders Complete Blood Count no Diff Today K72.90 - Hepatic failure, unspecified without coma, K74.60 - Unspecified cirrhosis of liver Ferritin Today K72.90 - Hepatic failure, unspecified without coma, K74.60 - Unspecified cirrhosis of liver Magnesium Today K72.90 - Hepatic failure, unspecified without coma, K74.60 - Unspecified cirrhosis of liver US venous duplex LE RT Today R60.0 - Localized edema Comprehensive Met. Panel Today K72.90 - Hepatic failure, unspecified without coma, K74.60 - Unspecified cirrhosis of liver Prothrombin Time INR Today K72.90 - Hepatic failure, unspecified without coma, K74.60 - Unspecified cirrhosis of liver Vitamin B12 and Folate Today K72.90 - Hepatic failure, unspecified without coma, K74.60 - Unspecified cirrhosis of liver Coding Level of Care Code Est Pt Level 5 (55602) Diagnoses Leg edema R60.0 Ascites R18.8 Hepatic encephalopathy K76.82 Liver cirrhosis K74.60 Liver cyst K76.89 Peripheral edema R60.0 Abnormal MRI of abdomen R93.5 Pancreas cyst K86.2 Gait instability R26.81 Frailty R54
[2024-06-01 13:05] VITALS: BP 128/53; PULSE 63; BMI 26.6
== END 2024-06-01 13:54 | disposition home or self-care (01) ==
PROVIDERS: PCP Internal Medicine; Visit Provider Internal Medicine
DX: K74.60 Unspecified cirrhosis of liver (principal); K76.82 Hepatic encephalopathy; R18.8 Other ascites; K76.89 Other specified diseases of liver; R93.5 Abnormal findings on diagnostic imaging of other abdominal regions, including retroperitoneum; K86.2 Cyst of pancreas; R26.81 Unsteadiness on feet; R54 Age-related physical debility
CPT/HCPCS: 99215

== ENCOUNTER 2024-06-01 12:50 | Outpatient (REF) | payer MEDICARE, SELFPAY ==
[2024-06-01 14:52] LABS: Hematocrit 32.8 % (37.0-47.0); Hemoglobin 10.9 g/dl (12.0-16.0); Mean Corpuscular HGB Conc 33.2 g/dl (31.0-35.0); Mean Corpuscular Hemoglobin 36.8 pg (27.0-33.0); Mean Platelet Volume 10.9 fL (9.4-12.3); Platelet Count 210 X10*3/uL (160-400); Red Blood Count 2.96 X10*6/uL (4.20-5.50); Red Cell Distribution Width 14.8 % (11.0-16.0); White Blood Count 7.7 X10*3/uL (4.8-10.8)
[2024-06-01 14:53] LABS: Mean Corpuscular Volume 110.8 fL (80.0-98.0)
[2024-06-01 15:20] LABS: INTERNATIONAL NORM RATIO 1.5 (0.9-1.1); Prothrombin Time 18.2 SEC (11.1-13.3)
[2024-06-01 15:36] LABS: Alanine Aminotransferase 24 U/L (0-31); Albumin Level 3.4 g/dL (3.5-5.0); Alkaline Phosphatase 93 U/L (39-117); Anion Gap 15 (12-20); Aspartate Amino Transferase 48 U/L (5-31); Bilirubin Total 5.1 mg/dL (0.0-1.0); Blood Urea Nitrogen 31 mg/dL (9-16); Calcium 9.7 mg/dL (8.4-10.2); Carbon Dioxide 24 mmol/L (22-29); Chloride 104 mmol/L (96-108); Estimated Glomerular Filt Rate 28; Glucose Random 98 mg/dL (60-115); Magnesium 1.8 mg/dL (1.6-2.6); Sodium 139 mmol/L (135-145); Total Protein 7.1 g/dL (6.5-8.0)
[2024-06-01 15:51] LABS: Ferritin 299 ng/mL (10-250)
[2024-06-01 16:05] LABS: Folate 16.9 ng/mL (> or = 4.0); Vitamin B12 1515 pg/mL (200-900)
== END 2024-06-01 12:51 | disposition home or self-care (01) ==
LOC: HO.LAB 12:50
PROVIDERS: PCP Internal Medicine; Visit Provider Internal Medicine
DX: K72.90 Hepatic failure, unspecified without coma (principal); K74.60 Unspecified cirrhosis of liver; R60.0 Localized edema; R18.8 Other ascites; K76.82 Hepatic encephalopathy; K76.89 Other specified diseases of liver; R93.5 Abnormal findings on diagnostic imaging of other abdominal regions, including retroperitoneum; K86.2 Cyst of pancreas; R26.81 Unsteadiness on feet; R54 Age-related physical debility
CPT/HCPCS: 36415; 80053; 82607; 82728; 82746; 83735; 85027; 85610; 99212

== ENCOUNTER 2024-06-06 11:18 | Outpatient (REF) | payer MEDICARE, SELFPAY ==
--- NOTE | ~2024-06-06 | US_ITS ---
EXAMINATION: US VENOUS ULTRASOUND WITH DOPPLER LOWER EXTREMITY, RIGHT CLINICAL INFORMATION: Localized edema of the right lower extremity. COMPARISON: 03/30/2024 TECHNIQUE: Ultrasound of the deep veins is performed from the hip to the calf with compression sonography and color and pulse Doppler assessment. Spectral analysis with color-flow imaging is performed. FINDINGS: There is normal venous compression and respiratory variation and augmented flow. The visualized common femoral vein, superficial femoral vein, profunda femoral vein, popliteal vein, and the trifurcation region shows no evidence of deep venous thrombosis. If the patient's symptoms persist, followup ultrasound in 5 days 7 days might be of value to exclude proximal propagation from a non-visualized calf vein. Right calf subcutaneous edema. US/US venous duplex LE RT IMPRESSION: No DVT demonstrated in the right lower extremity.
== END 2024-06-06 11:19 | disposition home or self-care (01) ==
LOC: HO.HMGCX 11:18
PROVIDERS: PCP Internal Medicine; Visit Provider Internal Medicine
DX: R60.0 Localized edema (principal)
CPT/HCPCS: 93971

== ENCOUNTER 2024-06-08 14:26 | Outpatient (REF) | payer MEDICARE, SELFPAY ==
[2024-06-08 16:38] LABS: Anion Gap 16 (12-20); Blood Urea Nitrogen 28 mg/dL (9-16); Calcium 9.2 mg/dL (8.4-10.2); Carbon Dioxide 20 mmol/L (22-29); Chloride 108 mmol/L (96-108); Estimated Glomerular Filt Rate 31; Glucose Random 115 mg/dL (60-115); Potassium 4.1 mmol/L (3.3-5.1); Sodium 140 mmol/L (135-145)
== END 2024-06-08 14:27 | disposition home or self-care (01) ==
LOC: HO.HMGCLDS 14:26
PROVIDERS: PCP Internal Medicine; Visit Provider Internal Medicine
DX: K72.90 Hepatic failure, unspecified without coma (principal); K74.60 Unspecified cirrhosis of liver
CPT/HCPCS: 36415; 80048

== ENCOUNTER 2024-06-11 16:35 | Inpatient (IN) | payer MEDICARE, SELFPAY ==
--- NOTE | ~2024-06-11 | US_ITS ---
EXAMINATION: US TRIPLEX LOWER EXTREMITY, BILATERAL CLINICAL INFORMATION: Swelling COMPARISON: 06/06/2024 TECHNIQUE: Color-flow triplex imaging with spectral analysis and compression Doppler were performed on the bilateral lower extremities. FINDINGS: Per technologist note, performance of the exam was slightly limited due to extensive pitting edema. Respiratory variation, normal compression and augmented flow are noted throughout the bilateral lower extremities. The visualized common femoral vein, superficial femoral vein, profunda femoral vein, popliteal vein and midcalf peroneal and posterior tibial venous segments show no evidence of deep venous thrombosis bilaterally. Right-sided Bruce's cyst measures 5.1 x 2.2 x 3.5 cm. Left-sided Bruce's cyst measures 4.9 x 1.7 x 2.7 cm. US/US venous duplex LE BI IMPRESSION: 1. No evidence of deep venous thrombosis involving the bilateral lower extremities. 2. Bilateral Bruce's cysts. Electronically signed by: Pranav Morales MD 06/24/2024 09:35 AM EDT
--- NOTE | ~2024-06-11 | XR_ITS ---
EXAMINATION: XR CHEST CLINICAL INFORMATION: Enteric tube placement. COMPARISON: Chest radiograph 03/30/2024. TECHNIQUE: Frontal view of the chest was obtained. FINDINGS: The side port of the enteric tube projects at the level of the lower esophagus and the tip of the enteric tube projects at the level of the gastroesophageal junction. Recommend advancement. Evaluation is limited due to patient rotation. No discrete focal consolidation, pleural effusion or pneumothorax. Unchanged appearance of the cardiomediastinal silhouette. Surgical clips overlying the right axillary region. No acute osseous findings. XR/XR chest 1V IMPRESSION: The side port of the enteric tube projects at the level of the lower esophagus and the tip of the enteric tube projects at the level of the gastroesophageal junction. Recommend advancement to prevent aspiration. The report will be called to the ordering clinician by a [facility]. Electronically signed by: Shanelle Cm MD 06/14/2024 11:18 AM EDT
--- NOTE | ~2024-06-11 | XR_ITS ---
EXAMINATION: XR CHEST CLINICAL INFORMATION: Enteric tube placement. COMPARISON: Chest radiograph earlier on same day at 9:28 AM. TECHNIQUE: Frontal view of the chest was obtained. FINDINGS: The enteric tube has been advanced with the side port projecting at the level of the gastroesophageal junction and the tip projecting over the proximal stomach. Stable appearance of the cardiomediastinal silhouette. No new focal consolidation, pleural effusion or pneumothorax. Again noted right axillary surgical clips. No acute osseous findings. XR/XR chest 1V IMPRESSION: The enteric tube has been advanced with the side port projecting at the level of the gastroesophageal junction and the tip projecting over the proximal stomach. Recommend further slight advancement to ensure side-port is below the diaphragm. Electronically signed by: Shanelle Cm MD 06/14/2024 01:07 PM EDT
--- NOTE | ~2024-06-11 | CT_ITS ---
EXAMINATION: CT HEAD WITHOUT CONTRAST CLINICAL INFORMATION: Confusion. COMPARISON: CT head from 11/16/2019. TECHNIQUE: Contiguous axial imaging was performed from the skull base to vertex without intravenous administration of contrast. This CT examination was performed using dose optimization techniques as appropriate, variously including the following: *Automated exposure control. *Adjustment of mA and/or kV according to patient size (this includes techniques or standardized protocols for targeted exams where dose is matched to indication/reason for exam; i.e. extremities or head). *Use of iterative reconstruction technique. DLP: 813 mGy-cm FINDINGS: There is no evidence of acute intracranial hemorrhage or edematous territorial infarction. Olson-white matter differentiation is preserved. Chronic prominent perivascular spaces caudal to the lentiform nuclei. Scattered and partially confluent hypoattenuation in the periventricular and deep white matter are consistent with moderate microangiopathy. Proportional prominence of the ventricles and sulcal spaces without evidence of obstructive hydrocephalus. No abnormal mass effect or midline shift. No extra-axial fluid collections. Left-sided nasogastric tube in place. No acute soft tissue or osseous abnormalities. Mild mucosal thickening of the paranasal sinuses. The mastoid air cells and middle ear cavities are clear. CT/CT head/brain wo IV con IMPRESSION: 1. No evidence of acute intracranial hemorrhage or edematous territorial infarction. 2. Moderate underlying microangiopathy and generalized cerebral volume loss. Electronically signed by: Jaciel Pierce DO 06/14/2024 09:24 PM EDT
--- NOTE | ~2024-06-11 | US_ITS ---
EXAMINATION: US TRIPLEX UPPER EXTREMITY, LEFT CLINICAL INFORMATION: Swelling, pain, redness COMPARISON: None available. TECHNIQUE: Color-flow triplex imaging with spectral analysis and compression Doppler was performed on the left upper extremity. FINDINGS: The left internal jugular, subclavian, and axillary veins are patent and free of thrombus. The imaged segment of the left brachiocephalic vein is patent. Spectral doppler waveforms are normal. The brachial, basilic, cephalic, radial, and ulnar veins are patent and compressible. Within the left proximal upper extremity there is a heterogeneous fluid collection with internal echoes measuring 9.8 x 3.7 x 3.4 cm. US/US venous duplex UE LT IMPRESSION: 1. No evidence of deep venous thrombosis involving the left upper extremity. 2. Within the proximal upper extremity there is a 9.8 x 3.7 x 3.4 cm heterogeneous fluid collection with internal echoes. This may represent a hematoma versus other fluid collection. Electronically signed by: Mohit Cho MD 06/13/2024 09:12 PM EDT
--- NOTE | ~2024-06-11 | CT_ITS ---
EXAMINATION: CT ABDOMEN AND PELVIS WITHOUT CONTRAST CLINICAL INFORMATION: Pain. COMPARISON: MRI dated 05/11/2024 TECHNIQUE: Multidetector volumetric imaging was performed from the superior aspect of the liver through the pubic symphysis. Sagittal and coronal reformatted images were obtained on the technologist's workstation. This CT examination was performed using dose optimization techniques as appropriate, variously including the following: *Automated exposure control *Adjustment of mA and/or kV according to patient size (this includes techniques or standardized protocols for targeted exams where dose is matched to indication/reason for exam; i.e. extremities or head) *Use of iterative reconstruction technique DLP: 614 mGy-cm FINDINGS: LUNG BASES: Mild dependent atelectasis at the bases. Cardiomegaly. Right breast implant is noted. LIVER, GALLBLADDER, AND BILIARY TREE: Liver is shrunken and nodular consistent with cirrhosis. No lesions are identified on this unenhanced study. No biliary duct dilatation. Cholelithiasis is noted within the gallbladder. PANCREAS: Fatty atrophy of the pancreas. There is a 1.8 x 1.1 cm cystic lesion in the region of the pancreatic head which is not appreciably changed as compared to prior studies. SPLEEN: Unremarkable. ADRENAL GLANDS: Unremarkable. KIDNEYS AND URETERS: The kidneys are normal in size, shape, and attenuation. No hydronephrosis or hydroureter. A 3 mm calculus is present within a lower pole calyx in the right kidney. Additional chondral. No perinephric stranding. BLADDER: Unremarkable. GASTROINTESTINAL TRACT: Stomach, small bowel, and colon are normal in caliber. No bowel wall thickening or surrounding inflammatory changes. Diverticulosis is present in the sigmoid colon. No appreciable findings of acute diverticulitis. Appendix is normal. Large volume of intraperitoneal free fluid. No appreciable internal complexity. No intraperitoneal free air. ABDOMINAL WALL: Anasarca. No hernias are identified. LYMPH NODES: Normal. VASCULAR: Atherosclerotic calcifications are present in the abdominal aorta and iliac arteries. No aneurysmal dilatation. PELVIC VISCERA: The uterus and adnexa are unremarkable. OSSEOUS STRUCTURES: Superior endplate compression deformity at L1 appears chronic. No acute fractures are identified. Moderate multilevel degenerative disc disease. Multilevel facet arthropathy. Mild osteoarthritis in the SI joints and hips. CT/CT abdomen pelvis wo IV con IMPRESSION: 1. Cirrhosis with a large volume of ascites. 2. Cholelithiasis. 3. Nonobstructing 3 mm calculus in the lower pole of the right kidney. 4. Sigmoid diverticulosis without evidence of acute diverticulitis. 5. Cardiomegaly. 6. A 1.8 cm cystic lesion in the pancreatic head is not appreciably changed as compared to prior studies. The known hepatic lesion is not well-seen on this unenhanced CT 7. Anasarca. Fleischner guidelines were followed.
--- NOTE | ~2024-06-11 | XR_ITS ---
EXAMINATION: PORTABLE CHEST 1 VIEW CLINICAL INFORMATION: shortness of breath. COMPARISON: 06/12/2024. TECHNIQUE: Portable frontal view of the chest was obtained. FINDINGS: The lungs are hypoexpanded. No focal infiltrate, effusion, edema, or pneumothorax. Cardiac and mediastinal silhouettes are within normal limits for technique. No acute bony abnormality seen. Surgical clips in the right axilla XR/XR chest 1V IMPRESSION: Hypoexpanded but otherwise no evidence of acute disease. Electronically signed by: Otf Rao MD 06/21/2024 08:37 PM EDT
--- NOTE | ~2024-06-11 | US_ITS ---
ULTRASOUND GUIDED PARACENTESIS HISTORY: Ascites. TECHNIQUE: Risks and benefits and possible complications were discussed with the patient and consent form was signed. A safe pocket of ascitic fluid was identified using ultrasound guidance, and the overlying skin was marked. The abdomen prepped and draped in sterile fashion. 1% lidocaine was used as a local anesthetic. Using ultrasound guidance, a 5 fr catheter was placed into the ascitic pocket. 3.0 liters of yellow fluid was removed passively. The catheter was then removed. A few circulation sales representative images from before and after the examination were obtained. The procedure was performed by Vini Reeves PA-C and supervised by Dr. Quintana. US/US paracentesis abd w/image IMPRESSION: Ultrasound-guided paracentesis as described above. No immediate complications Electronically signed by: Ben Quintana MD 06/22/2024 02:59 PM EDT
--- NOTE | ~2024-06-11 | US_ITS ---
ULTRASOUND GUIDED PARACENTESIS HISTORY: Ascites. SANDRA TECHNIQUE: Risks and benefits and possible complications were discussed with the patient and consent form was signed. A safe pocket of ascitic fluid was identified using ultrasound guidance, and the overlying skin was marked. The abdomen prepped and draped in sterile fashion. 1% lidocaine was used as a local anesthetic. Using ultrasound guidance, a 5 fr catheter was placed into the ascitic pocket. 2.0 liters of yellow fluid was removed passively. The catheter was then removed. A few telemarketing sales representative images from before and after the examination were obtained. The procedure was performed by Vini Reeves PA-C and supervised by Dr. Quintana. US/US paracentesis abd w/image IMPRESSION: Ultrasound-guided paracentesis as described above. No immediate complications Electronically signed by: Ben Quintana MD 06/22/2024 03:06 PM EDT
--- NOTE | ~2024-06-11 | CT_ITS ---
EXAMINATION: CT scan of the left hand without contrast CLINICAL INFORMATION: swelling and collection on US ? hematoma, r Additional Notes/Special Instructions rule out compartmental syndrome COMPARISON: Ultrasound of the left upper extremity May 2024. X-ray left hand February 2021 TECHNIQUE: CT scan of the distal left forearm and hand was performed with reconstruction imaging performed at the acquisition workstation without contrast. FINDINGS: Subcutaneous soft tissues: There is generalized fluidlike density circumferentially about the distal forearm and hand compatible with edema, cellulitis, or combination of these. No focal fluid collection identified. Muscle/tendons: Normal. Bones/joints: There is advanced osteoarthritis first carpometacarpal joint similar to prior radiographs 2020. There is chondrocalcinosis throughout the wrist. There is mild osteoarthritis of the IP joint of the thumb. Evaluation of the proximal phalanges is limited because of metallic artifact as the patient could not remove rings. The remaining visualized bony joints are unremarkable. CT/CT hand LT wo IV con IMPRESSION: 1. Fluidlike density circumferentially about the distal forearm and hand compatible with edema, cellulitis, or combination of these. No focal fluid collection identified. 2. Of note in my review of prior venous ultrasound examination of the left upper extremity the suspected fluid collection is within the upper extremity in the biceps region which was not imaged on this exam. Therefore consider follow-up imaging of the upper extremity/humerus region with CT or MRI if thought clinically necessary to evaluate for hematoma. 3. Advanced osteoarthritis first carpometacarpal joint similar to prior radiographs 2020. 4. Chondrocalcinosis throughout the wrist. 5. Mild osteoarthritis of the IP joint of the thumb. Electronically signed by: Adan Liu MD 06/14/2024 07:44 PM EDT
--- NOTE | 2024-06-11 16:38 | ED_ITS ---
HPI - General Adult General Chief complaint: Weakness Stated complaint: Dizzy Fluid in Stomach Time Seen by Provider: 06/11/24 21:25 Source: patient Limitations: no limitations History of Present Illness ED Provider: Lynn Francisco PA-C HPI narrative: 74-year-old female with history of alcohol abuse, decompensated cirrhosis w/ ascites requiring frequent paracentesis (last 2.4L on 05/17), hx hepatic encephalopathy, CKD, COPD, HFpEF, HTN who presents to the ER per recs of Dr. Montoya from GI for evaluation of abdominal pain, dizziness, weakness, shortness of breath x2 days. Associated abdominal distention, with nausea, vomiting and diarrhea. Patient states her peripheral edema has worsened as well. Her GI specialist recently increased the dose of spironolactone, the patient has been taking it as directed. Patient states she has not been taking the lactulose she is prescribed, she states it causes extreme diarrhea that is bothersome. Denies fever. Patient has been sober for 1 year. Related Data Home Medications ?Medication ?Instructions ?Recorded ?Confirmed aspirin 81 mg tablet,delayed 81 mg PO DAILY 12/18/20 05/17/24 release cholecalciferol (vitamin D3) 50 50 mcg PO DAILY 12/18/20 05/17/24 mcg (2,000 unit) capsule omeprazole 20 mg capsule,delayed 20 mg PO DAILY 07/15/23 05/17/24 release acetaminophen 500 mg tablet 500 mg PO BID PRN Pain 03/31/24 05/17/24 vitamin B complex 1 tab PO DAILY 03/31/24 05/17/24 Previous Rx's ?Medication ?Instructions ?Recorded albuterol sulfate 90 mcg/actuation 1 puff inhalation QID PRN for 03/30/23 aerosol inhaler wheezing #17 grams metoprolol succinate 25 mg 25 mg PO DAILY #90 tabs 06/15/23 tablet,extended release 24 hr fluoxetine 40 mg capsule 40 mg PO DAILY #90 caps 06/16/23 gabapentin 300 mg capsule 300 mg PO BID #180 caps 11/22/23 fluticasone fur. 200 mcg-umeclid 1 inh inhalation DAILY #180 ea 03/06/24 62.5 mcg-vilant 25 mcg inhalat.powder (Trelegy Ellipta) compression stockings #1 ea 03/29/24 furosemide 20 mg tablet 20 mg PO DAILY #90 tabs 04/03/24 midodrine 5 mg tablet 5 mg PO TID #270 tabs 04/03/24 spironolactone 50 mg tablet 50 mg PO DAILY 90 days #180 tabs 04/03/24 Allergies Allergy/AdvReac Type Severity Reaction Status Date / Time hydromorphone [From DILAUDID] Allergy Intermediate hives, Verified 06/11/24 16:46 itching losartan Allergy Intermediate Angioedema Verified 06/11/24 16:46 tramadol [From ULTRAM] Allergy Intermediate hives,itchi Verified 06/11/24 16:46 ng Review of Systems 2 Review of Systems: Yes all other systems are reviewed and are negative Constitutional: Constitutional: Reports fatigue and Denies fever(s) Cardiovascular: Cardiovascular: Denies chest pain and Reports dyspnea Respiratory: Respiratory: Reports dyspnea Gastrointestinal: Gastrointestinal: Reports abdominal pain, Reports diarrhea, Reports nausea and Reports vomiting Integumentary/Breasts: Skin/Breast: Reports change in pigmentation and Denies pruritus Endocrine: Endocrine: Reports fatigue PMFSH Past Medical History Attestation statement: The following information was validated with the patient. Medical History Neuropathy Hx of screening mammography Vitamin B12 deficiency Vitamin D deficiency Annual physical exam Breast CA (~03/01/23) Flank pain, chronic Hx of abdominal pain Excessive drinking of alcohol COPD (chronic obstructive pulmonary disease) Pulmonary nodules Atrial arrhythmia NICM (nonischemic cardiomyopathy) Cardiac LV ejection fraction of 40-49% Osteoarthritis Colonoscopy refused Muscle spasm History of breast cancer in female Chronic GERD Anxiety, generalized Surgical History History of esophagogastroduodenoscopy (EGD) H/O colonoscopy History of removal of Port-a-Cath History of hysterectomy History of section H/O right mastectomy Family History Family History Father Non-Hodgkin lymphoma Mother CVD (cardiovascular disease) Brother Lung disease Sister No problems noted. Maternal Grandfather Colon cancer Maternal Grandmother CVD (cardiovascular disease) Paternal Grandfather Unknown family medical history Paternal Grandmother Unknown family medical history Brother No problems noted. Son No problems noted. Son No problems noted. Daughter No problems noted. Other Mental health disorder Substance use disorder Social History Social History Household Members: None Housing: Apartment Do you presently have visiting nurse or other home services: No Alcohol intake: former Year quit: 2022 Patient Tobacco Use Status: Former Tobacco user Tobacco use type: Cigarette Years Smoked: 10 Smoked in Last 30 Days: No e-Cigarette/Vaping Use: Never Used Second Hand Smoke Exposure: No Use of substances other than those prescribed or required for medical reasons: No Advance Directives: Yes Advance Directives on File: Yes Advance Directives Date on File: 04/04/24 service: No 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 needs: No Hearing needs: No Vision needs: Yes (wears glasses ) Physical Exam ED Vital Signs: Vital Signs - 24 hr 06/11/24 16:43 06/11/24 20:00 06/11/24 21:17 Temperature 97.5 F 97.7 F Pulse Rate 69 63 66 Respiratory Rate 18 18 15 Blood Pressure 102/34 L 150/57 H 111/47 L Pulse Oximetry 97 97 98 Oxygen Delivery Method Room Air Room Air Room Air 06/12/24 00:11 Temperature 97.4 F Pulse Rate 64 Respiratory Rate 13 Blood Pressure 113/46 L Pulse Oximetry 96 Oxygen Delivery Method Room Air BMI result Body Mass Index 27.2 Const Other: Alert, appears older than stated age Orientation/consciousness: patient oriented x3 HENMT Other: Right oral mucosa Eyes Other: Scleral icterus Resp Other: Nonlabored respiration Cardio Other: Bilateral pitting edema, the edema spans over the abdominal wall, consistent with anasarca GI Other: Abdomen is soft, protuberant, mild generalized tenderness, most prominent over right mid abdomen, no guarding Skin Other: Jaundice, dry, no rash, multiple regions of ecchymosis Neuro General: patient oriented x3, no focal motor deficits and CN's II-XI intact bilaterally Extrem Other: Strength 5/5 bilateral upper and lower extremity Psych Other: Calm, cooperative Course Course Course Narrative: This is a Rapid Medical Examination (RME) performed by Jaycob Gordillo PA-C in triage. Full HPI, ROS, assessment and treatment plan per primary provider in the Main ED. 74 yo female with history of decompensated cirrhosis w/ ascites requiring frequent paracentesis (last 2.4L on 05/17), hx hepatic encephalopathy, CKD, COPD, HFpEF, HTN who presents to the ER per recs of Dr. Montoya from GI for evaluation of dizziness, lightheadedness, weakness, SOB, a fall 2 days ago and lethargy. Compliant with diuretics, recent increase in spironolactone a few weeks ago. Plan: Reevaluation(s) Reevaluation #1: patient in afib with RVR albumin ordered, IV lopressor, midodrine ordered Time: 03:13 Medications Administered Discontinued Medications Generic Name Dose Route Start Last Admin Trade Name Freq PRN Reason Stop Dose Admin Acetaminophen 500 mg 06/11/24 22:54 06/11/24 23:52 Acetaminophen 325 Mg Tablet PO 06/11/24 22:55 500 mg ONCE ONE Administration Gabapentin 300 mg 06/11/24 22:54 06/11/24 23:52 Gabapentin 300 Mg Capsule PO 06/11/24 22:55 300 mg ONCE ONE Administration Sodium Chloride 500 mls @ 500 mls/hr 06/11/24 21:58 06/11/24 23:15 Ns IV 06/11/24 22:57 Infused .Q1H ONE Infusion Lidocaine/Epinephrine 20 ml 06/11/24 21:48 06/11/24 22:07 Lidocaine Hcl 2% Pf/Epi 1:200 20 Ml Vial INFILTRATI 06/11/24 21:49 Not Given ONCE ONE Lidocaine/Epinephrine 20 ml 06/11/24 21:57 06/11/24 22:10 Lidocaine Hcl 1%/Epi 1:100,000 20 Ml Vial INFILTRATI 06/11/24 21:58 20 ml ONCE ONE Administration Procedures Paracentesis Time Out Performed: No Local Anesthetic: lidocaine 1% and with epi Amount of anesthesia used (mL): 5 Fluid: cloudy and other (Cloudy yellow) Post Procedure Exam: awake, alert Patient Tolerated Procedure: well Complications: none Medical Decision Making Medical Decision Making MDM Narrative: 74-year-old female with history of alcohol abuse, decompensated cirrhosis w/ ascites requiring frequent paracentesis (last 2.4L on 05/17), hx hepatic encephalopathy, CKD, COPD, HFpEF, HTN who presents to the ER per recs of Dr. Montoya from GI for evaluation of abdominal pain, dizziness, weakness, shortness of breath x2 days. Associated abdominal distention, with nausea, vomiting and diarrhea. Patient states her peripheral edema has worsened as well. Her GI specialist recently increased the dose of spironolactone, the patient has been taking it as directed. Patient states she has not been taking the lactulose she is prescribed, she states it causes extreme diarrhea that is bothersome. Denies fever. Patient has been sober for 1 year. Problem: Cirrhosis, chronic kidney disease, hypertension, COPD, History: Per patient I have considered the following differential diagnoses: SBP, viral gastroenteritis, C diff, diverticulitis, Plan: Screening labs obtained from triage, the patient has worsening hepatic and renal function. I am most concerned for SBP, we will obtain a diagnostic tap. On recent imaging, the patient was noted to have both liver and pancreatic lesion, we will be obtaining a CT scan to be sure there is no progression of this disease process. This could be viral gastroenteritis, such illness has been prevalent within the community. Thought about C diff, however she has not been on recent antibiotics and has not had a recent hospital admission. Thought about diverticulitis, however she does not have focal left lower quadrant pain. I have independently reviewed the following tests: Labs: No leukocytosis, stable anemia, platelets 194, creatinine further elevated at 1.93 no additional electrolyte abnormalities, bilirubin further elevated total 6.8, direct bilirubin 2.5, ammonia elevated at 99, however she has not encephalopathic today. We will give gentle IV fluid for her SANDRA, 500 mL normal saline bolus CT abdomen and pelvis:[address] [address] [address] Scan Report Signed Patient: Sherin Butler MR#: [id number] : 1950 Acct:[id number] Age/Sex: 74 / F ADM Date: 06/11/24 Loc: HO.ED Attending Dr: Ordering Physician: Lynn Francisco Date of Service: 06/11/24 Procedure(s): CT abdomen pelvis wo IV con Accession Number(s): [id number] cc: Adele Knight MD; Lynn Francisco~ EXAMINATION: CT ABDOMEN AND PELVIS WITHOUT CONTRAST CLINICAL INFORMATION: Pain. COMPARISON: MRI dated 05/11/2024 TECHNIQUE: Multidetector volumetric imaging was performed from the superior aspect of the liver through the pubic symphysis. Sagittal and coronal reformatted images were obtained on the technologist's workstation. This CT examination was performed using dose optimization techniques as appropriate, variously including the following: *Automated exposure control *Adjustment of mA and/or kV according to patient size (this includes techniques or standardized protocols for targeted exams where dose is matched to indication/reason for exam; i.e. extremities or head) *Use of iterative reconstruction technique DLP: 614 mGy-cm FINDINGS: LUNG BASES: Mild dependent atelectasis at the bases. Cardiomegaly. Right breast implant is noted. LIVER, GALLBLADDER, AND BILIARY TREE: Liver is shrunken and nodular consistent with cirrhosis. No lesions are identified on this unenhanced study. No biliary duct dilatation. Cholelithiasis is noted within the gallbladder. PANCREAS: Fatty atrophy of the pancreas. There is a 1.8 x 1.1 cm cystic lesion in the region of the pancreatic head which is not appreciably changed as compared to prior studies. SPLEEN: Unremarkable. ADRENAL GLANDS: Unremarkable. KIDNEYS AND URETERS: The kidneys are normal in size, shape, and attenuation. No hydronephrosis or hydroureter. A 3 mm calculus is present within a lower pole calyx in the right kidney. Additional chondral. No perinephric stranding. BLADDER: Unremarkable. GASTROINTESTINAL TRACT: Stomach, small bowel, and colon are normal in caliber. No bowel wall thickening or surrounding inflammatory changes. Diverticulosis is present in the sigmoid colon. No appreciable findings of acute diverticulitis. Appendix is normal. Large volume of intraperitoneal free fluid. No appreciable internal complexity. No intraperitoneal free air. ABDOMINAL WALL: Anasarca. No hernias are identified. LYMPH NODES: Normal. VASCULAR: Atherosclerotic calcifications are present in the abdominal aorta and iliac arteries. No aneurysmal dilatation. PELVIC VISCERA: The uterus and adnexa are unremarkable. OSSEOUS STRUCTURES: Superior endplate compression deformity at L1 appears chronic. No acute fractures are identified. Moderate multilevel degenerative disc disease. Multilevel facet arthropathy. Mild osteoarthritis in the SI joints and hips. CT/CT abdomen pelvis wo IV con IMPRESSION: 1. Cirrhosis with a large volume of ascites. 2. Cholelithiasis. 3. Nonobstructing 3 mm calculus in the lower pole of the right kidney. 4. Sigmoid diverticulosis without evidence of acute diverticulitis. 5. Cardiomegaly. 6. A 1.8 cm cystic lesion in the pancreatic head is not appreciably changed as compared to prior studies. The known hepatic lesion is not well-seen on this unenhanced CT 7. Anasarca. Fleischner guidelines were followed. We were unable to obtain a contrast study due to her worsening renal function, she will likely have an MRI during her admission Differential Diagnosis Differential Diagnoses: The differential diagnosis associated with the presentation includes Lab Data 06/11/24 17:13 06/11/24 17:10 Labs: Lab Results 06/11/24 06/11/24 06/11/24 Range/Units 17:10 17:12 17:13 WBC 8.0 (4.8-10.8) X10*3/uL RBC 2.61 L (4.20-5.50) X10*6/uL Hgb 9.5 L (12.0-16.0) g/dl Hct 28.7 L (37.0-47.0) % MCV 110.0 H (80.0-98.0) fL MCH 36.4 H (27.0-33.0) pg MCHC 33.1 (31.0-35.0) g/dl RDW 15.1 (11.0-16.0) % Plt Count 194 (160-400) X10*3/uL MPV 10.9 (9.4-12.3) fL Immature Gran % (Auto) 0.8 H (0.0-0.4) % Neut % (Auto) 65.1 (45-73) % Lymph % (Auto) 17.8 L (20-40) % Crowley % (Auto) 14.8 H (2-11) % Eos % (Auto) 1.0 (0-4) % Baso % (Auto) 0.5 (0-2) % Lymph # (Auto) 1.4 (1.2-4.9) X10*3/uL Crowley # (Auto) 1.2 (0.1-1.2) X10*3/uL Eos # (Auto) 0.1 (0.0-0.4) X10*3/uL Baso # (Auto) 0.0 (0.0-0.2) X10*3/uL Abs Immat Gran (auto) 0.06 H (0.00-0.03) X10*3/uL Absolute Neuts (auto) 5.2 (2.0-8.3) x10*3/uL Absolute Nucleated RBC 0.000 (0.0-0.012) X10*3/uL Nucleated RBC % (auto) 0.0 (0.0-0.2) /100WBC PT 18.8 H (11.1-13.3) SEC INR 1.5 H (0.9-1.1) APTT 37.4 H (26.0-36.8) SEC Sodium 137 (135-145) mmol/L Potassium 4.5 (3.3-5.1) mmol/L Chloride 106 (96-108) mmol/L Carbon Dioxide 21 L (22-29) mmol/L Anion Gap 15 (12-20) BUN 29 H (9-16) mg/dL Creatinine 1.93 H (0.5-1.4) mg/dL Estim Creat Clear Calc 28.5 Estimated GFR 26 Random Glucose 122 H (60-115) mg/dL Calcium 9.6 (8.4-10.2) mg/dL Magnesium 1.6 (1.6-2.6) mg/dL Total Bilirubin 6.8 H (0.0-1.0) mg/dL Direct Bilirubin 2.5 H (0.0-0.5) mg/dL AST 39 H (5-31) U/L ALT 20 (0-31) U/L Alkaline Phosphatase 80 (39-117) U/L Ammonia 99 H (13-55) umol/L Troponin I High Sens 5.7 (<3.5-17.0) ng/L Total Protein 6.4 L (6.5-8.0) g/dL Albumin 3.0 L (3.5-5.0) g/dL Urine Color Urine Appearance Urine pH (5.0-9.0) Ur Specific Whitehouse (1.005-1.025) Urine Protein (Neg-Trace) mg/dL Urine Glucose (UA) (Negative) mg/dL Urine Ketones (Negative) mg/dL Urine Blood (Negative) Urine Nitrite (Negative) Ur Leukocyte Esterase (Negative) Urine RBC (0-2) /HPF Urine WBC (0-5) /HPF Urine WBC Clumps Ur Squamous Epith Cells (0-2) /HPF Urine Bacteria (None Seen) Hyaline Casts (0-2) /LPF COVID-19 (SEGUNDO) Negative (Negative) COVID-19 Clin Com See Note 06/12/24 Range/Units 01:57 WBC (4.8-10.8) X10*3/uL RBC (4.20-5.50) X10*6/uL Hgb (12.0-16.0) g/dl Hct (37.0-47.0) % MCV (80.0-98.0) fL MCH (27.0-33.0) pg MCHC (31.0-35.0) g/dl RDW (11.0-16.0) % Plt Count (160-400) X10*3/uL MPV (9.4-12.3) fL Immature Gran % (Auto) (0.0-0.4) % Neut % (Auto) (45-73) % Lymph % (Auto) (20-40) % Crowley % (Auto) (2-11) % Eos % (Auto) (0-4) % Baso % (Auto) (0-2) % Lymph # (Auto) (1.2-4.9) X10*3/uL Crowley # (Auto) (0.1-1.2) X10*3/uL Eos # (Auto) (0.0-0.4) X10*3/uL Baso # (Auto) (0.0-0.2) X10*3/uL Abs Immat Gran (auto) (0.00-0.03) X10*3/uL Absolute Neuts (auto) (2.0-8.3) x10*3/uL Absolute Nucleated RBC (0.0-0.012) X10*3/uL Nucleated RBC % (auto) (0.0-0.2) /100WBC PT (11.1-13.3) SEC INR (0.9-1.1) APTT (26.0-36.8) SEC Sodium (135-145) mmol/L Potassium (3.3-5.1) mmol/L Chloride (96-108) mmol/L Carbon Dioxide (22-29) mmol/L Anion Gap (12-20) BUN (9-16) mg/dL Creatinine (0.5-1.4) mg/dL Estim Creat Clear Calc Estimated GFR Random Glucose (60-115) mg/dL Calcium (8.4-10.2) mg/dL Magnesium (1.6-2.6) mg/dL Total Bilirubin (0.0-1.0) mg/dL Direct Bilirubin (0.0-0.5) mg/dL AST (5-31) U/L ALT (0-31) U/L Alkaline Phosphatase (39-117) U/L Ammonia (13-55) umol/L Troponin I High Sens (<3.5-17.0) ng/L Total Protein (6.5-8.0) g/dL Albumin (3.5-5.0) g/dL Urine Color Dark Yellow Urine Appearance Clear Urine pH 5.0 (5.0-9.0) Ur Specific Whitehouse 1.010 (1.005-1.025) Urine Protein Negative (Neg-Trace) mg/dL Urine Glucose (UA) Negative (Negative) mg/dL Urine Ketones Negative (Negative) mg/dL Urine Blood Negative (Negative) Urine Nitrite Negative (Negative) Ur Leukocyte Esterase Trace H (Negative) Urine RBC 0-2 (0-2) /HPF Urine WBC 0-5 (0-5) /HPF Urine WBC Clumps Present Ur Squamous Epith Cells 11-20 (0-2) /HPF Urine Bacteria 1+ (None Seen) Hyaline Casts 11-20 (0-2) /LPF COVID-19 (SEGUNDO) (Negative) COVID-19 Clin Com Discharge Plan Discharge Clinical Impression: Decompensation of cirrhosis of liver, Abdominal ascites Patient Disposition: Admitted As Inpatient Print Language: Persian
--- NOTE | 2024-06-11 16:41 | ECG_ITS ---
Test Reason : SYNCOPE Blood Pressure : / mmHG Vent. Rate : 066 BPM Atrial Rate : 066 BPM P-R Int : 148 ms QRS Dur : 070 ms QT Int : 454 ms P-R-T Axes : 040 043 058 degrees QTc Int : 475 ms Poor data quality, interpretation may be adversely affected Sinus rhythm with Premature atrial complexes Low voltage QRS Septal infarct (cited on or before 05-MAY-2023) Abnormal ECG When compared with ECG of 30-MAR-2024 17:44, No significant change was found Referred By: Keerthi Gordillo Electronically Signed By:OSCAR RICH
[2024-06-11 16:43] VITALS: BP 102/34; PULSE 69; RESP 18; O2SAT 97; BMI 27.2
[2024-06-11 17:21] LABS: MANUAL DIFF FLAG NO
[2024-06-11 17:30] LABS: Ammonia 99 umol/L (13-55)
[2024-06-11 17:38] LABS: INTERNATIONAL NORM RATIO 1.5 (0.9-1.1); Prothrombin Time 18.8 SEC (11.1-13.3)
[2024-06-11 17:41] LABS: Partial Thromboplastin Time 37.4 SEC (26.0-36.8)
[2024-06-11 17:47] LABS: Alanine Aminotransferase 20 U/L (0-31); Alkaline Phosphatase 80 U/L (39-117); Anion Gap 15 (12-20); Aspartate Amino Transferase 39 U/L (5-31); Bilirubin Direct 2.5 mg/dL (0.0-0.5); Bilirubin Total 6.8 mg/dL (0.0-1.0); Blood Urea Nitrogen 29 mg/dL (9-16); Calcium 9.6 mg/dL (8.4-10.2); Carbon Dioxide 21 mmol/L (22-29); Chloride 106 mmol/L (96-108); Creatinine Clr Calc Pharmacy 28.5; Estimated Glomerular Filt Rate 26; Glucose Random 122 mg/dL (60-115); Magnesium 1.6 mg/dL (1.6-2.6); Potassium 4.5 mmol/L (3.3-5.1); Sodium 137 mmol/L (135-145); Total Protein 6.4 g/dL (6.5-8.0)
[2024-06-11 17:47] LABS: Basophils Percent Auto 0.5 % (0-2); Eosinophils Absolute Auto 0.1 X10*3/uL (0.0-0.4); Hematocrit 28.7 % (37.0-47.0); Hemoglobin 9.5 g/dl (12.0-16.0); Imm Gran Abs Auto 0.06 X10*3/uL (0.00-0.03); Imm Gran Pct Auto 0.8 % (0.0-0.4); Lymphocytes Absolute Auto 1.4 X10*3/uL (1.2-4.9); Lymphocytes Percent Auto 17.8 % (20-40); Mean Corpuscular HGB Conc 33.1 g/dl (31.0-35.0); Mean Corpuscular Hemoglobin 36.4 pg (27.0-33.0); Mean Platelet Volume 10.9 fL (9.4-12.3); Monocytes Absolute Auto 1.2 X10*3/uL (0.1-1.2); Monocytes Percent Auto 14.8 % (2-11); Neutrophils Absolute Auto 5.2 x10*3/uL (2.0-8.3); Neutrophils Percent Auto 65.1 % (45-73); Platelet Count 194 X10*3/uL (160-400); Red Blood Count 2.61 X10*6/uL (4.20-5.50); Red Cell Distribution Width 15.1 % (11.0-16.0)
[2024-06-11 17:55] LABS: Troponin-I High Sensitivity 5.7 ng/L (<3.5-17.0)
[2024-06-11 18:30] LABS: COVID-19 Test Negative (Negative); IDNOW Serial# 08D9AD1C
[2024-06-11 20:00] VITALS: BP 150/57; PULSE 63; RESP 18; TEMP 36.4; O2SAT 97
[2024-06-11 21:17] VITALS: BP 111/47; PULSE 66; RESP 15; TEMP 36.5; O2SAT 98
--- NOTE | 2024-06-11 22:00 | PC.NURSE ---
PA to bedside for paracentesis, pt tolerating well.
[2024-06-11] MEDS: 0.9 % Sodium Chloride 500 ML IV (22:04)
[2024-06-11] MEDS: Lidocaine HCl 1%/Epi 1:100,000 20 ML VIAL INFILTRATI (22:10)
--- NOTE | 2024-06-11 23:23 | PC.NURSE ---
Pt off floor for imaging.
[2024-06-11] MEDS: Acetaminophen 325 MG TABLET 500 MG PO (23:52)
[2024-06-11] MEDS: Gabapentin 300 MG CAPSULE PO (23:52)
[2024-06-12] VITALS (14 sets, daily range): BP systolic 100–114; BP diastolic 39–64; PULSE 64–134; RESP 13–18; TEMP 36.3–37.1; O2SAT 96–99
--- NOTE | 2024-06-12 00:15 | PC.NURSE ---
Pt medicated per DEC for reports of headache and slight abd pain 12/31. Awaiting results and PA reeval, aware of plan of care. VSS. Offers no additional complaints.
[2024-06-12 02:02] LABS: Appearance Urine Clear; Color Urine Dark Yellow; Glucose Urine UA Negative (Negative); Leukocyte Esterase Urine Trace (Negative); Nitrite Urine Negative (Negative); UMIC TRIGGER UACC YES; Urine Blood Negative (Negative); Urine Ketones Negative (Negative); Urine Protein Negative (Neg-Trace)
[2024-06-12 02:50] LABS: Bacteria Urine 1+ (None Seen); RBC Urine 0-2 /HPF (0-2); WBC Clumps Urine Present; WBC Urine 0-5 /HPF (0-5)
--- NOTE | 2024-06-12 03:08 | ECG_ITS ---
Test Reason : TACHY Blood Pressure : / mmHG Vent. Rate : 135 BPM Atrial Rate : 000 BPM P-R Int : 000 ms QRS Dur : 094 ms QT Int : 346 ms P-R-T Axes : 000 070 -35 degrees QTc Int : 519 ms Atrial fibrillation with rapid ventricular response Low voltage QRS Nonspecific T wave abnormality Abnormal ECG When compared with ECG of 11-JUN-2024 17:41, Atrial fibrillation has replaced Sinus rhythm Vent. rate has increased BY 69 BPM Nonspecific T wave abnormality now evident in Inferior leads Referred By: Laurita Macias Electronically Signed By:OSCAR RICH
--- NOTE | 2024-06-12 03:15 | PC.NURSE ---
this RN resumed care of pt at 0300. a&ox4. pt currently in afib at this time - HR between 110-140bpm. pt denies any chest pain/palpitations/sob. pt also hypotensive. pt states she did not take prescription of metoprolol or midodrine today. another 20gIV placed in the left AC - medication administered per provider order. effectiveness pending. no sob/wob noted. respirations even/unlabored. plan of care ongoing. call dyson placed within reach.
[2024-06-12] MEDS: Metoprolol Succinate ER 25 MG TAB.ER.24H PO (03:32)
[2024-06-12] MEDS: Midodrine HCl 5 MG TABLET PO ×3 (03:33→21:06)
[2024-06-12] MEDS: Albumin Human 25 % 100 ML IV (03:33)
--- NOTE | 2024-06-12 05:01 | PC.NURSE ---
vss and up to date. pt remains in nsr at this time. denies any chest pain/palpitations/sob at this time. pt endorses dyspnea w/ exertion but subsides at rest. pt resting comfortably in no apparent distress. no sob/wob noted. respirations even/unlabored. pt pending admission at this time. plan of care ongoing. call dyson placed within reach.
[2024-06-12] MEDS: Lactulose 20 GM/30 ML SOLUTION PO (08:24)
[2024-06-12] MEDS: 0.9 % Sodium Chloride 1,000 ML 80 ML IVCONT (08:24)
--- NOTE | 2024-06-12 09:03 | P.HPHOSP_ITS ---
History of Present Illness Date of Service: 06/12/24 Chief Complaint: dat 74-year-old female with history of alcohol abuse, cirrhosis w/ ascites requiring frequent paracentesis (last 2.4L on 05/17), histopry of hepatic encephalopathy, CKD3, COPD, chronic HFpEF, HTN who presents the ED on advise of her GI Dr Dr. Montoya after her daughter called stating that she has been falling, confused, dizzy, weak and short of breath for at least 2 days. She has also noted increased abdominal girth, with abdo discomfort, N/V and diarrhea all of which seem better today. She is noted to have worsening renal function with Creatine of 1.9 baseline around 1.3. She recently had adactone increased to 100. She had an MRI of the abdomen in [facility] showing a pancreatic cyst not seen on CT without contrast from 06/11/24. Patient is less confused today after getting lactulose earlier, ammonia level was 90 at that time. Review of Systems 2 Review of Systems: Gen: no fever Resp: no sob, no cough CV: no chest, no BELLA, no leg edema GI: No n/v, no abd pain Neuro: No confusion Yes all other systems are reviewed and are negative [facility] Medical History Neuropathy Hx of screening mammography Vitamin B12 deficiency Vitamin D deficiency Annual physical exam Breast CA (~03/01/23) Flank pain, chronic Hx of abdominal pain Excessive drinking of alcohol COPD (chronic obstructive pulmonary disease) Pulmonary nodules Atrial arrhythmia NICM (nonischemic cardiomyopathy) Cardiac LV ejection fraction of 40-49% Osteoarthritis Colonoscopy refused Muscle spasm History of breast cancer in female Chronic GERD Anxiety, generalized Family History Father Non-Hodgkin lymphoma Mother CVD (cardiovascular disease) Brother Lung disease Sister No problems noted. Maternal Grandfather Colon cancer Maternal Grandmother CVD (cardiovascular disease) Paternal Grandfather Unknown family medical history Paternal Grandmother Unknown family medical history Brother No problems noted. Son No problems noted. Son No problems noted. Daughter No problems noted. Other Mental health disorder Substance use disorder Surgical History History of esophagogastroduodenoscopy (EGD) H/O colonoscopy History of removal of Port-a-Cath History of hysterectomy History of section H/O right mastectomy Social History Household Members: None Housing: Apartment Do you presently have visiting nurse or other home services: No Alcohol intake: former Year quit: 2022 Patient Tobacco Use Status: Former Tobacco user Tobacco use type: Cigarette Years Smoked: 10 Smoked in Last 30 Days: No e-Cigarette/Vaping Use: Never Used Second Hand Smoke Exposure: No Use of substances other than those prescribed or required for medical reasons: No Advance Directives: Yes Advance Directives on File: Yes Advance Directives Date on File: 04/04/24 Nutrition Risks: No Nutritional Risk service: No 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 needs: No Hearing needs: No Vision needs: Yes (wears glasses ) Meds Allergies Allergy/AdvReac Type Severity Reaction Status Date / Time hydromorphone [From DILAUDID] Allergy Intermediate hives, Verified 06/11/24 16:46 itching losartan Allergy Intermediate Angioedema Verified 06/11/24 16:46 tramadol [From ULTRAM] Allergy Intermediate hives,itchi Verified 06/11/24 16:46 ng Active Medications: Current Medications Sodium Chloride (Ns) 1,000 mls @ 80 mls/hr IVCONT .[id number] REINA Last Admin: 06/12/24 08:24 Dose: 80 mls/hr Home Medications ?Medication ?Instructions ?Recorded ?Confirmed ?Last Taken ?Type aspirin 81 mg tablet,delayed 81 mg PO DAILY 12/18/20 06/12/24 06/10/24 History release cholecalciferol (vitamin D3) 50 50 mcg PO DAILY 12/18/20 06/12/24 06/10/24 History mcg (2,000 unit) capsule omeprazole 20 mg capsule,delayed 20 mg PO DAILY@0630 07/15/23 06/12/24 06/10/24 History release acetaminophen 500 mg tablet 500 mg PO BID PRN Pain 03/31/24 06/12/24 Unknown History vitamin B complex 1 tab PO DAILY 03/31/24 06/12/24 06/10/24 History albuterol sulfate 90 mcg/actuation 2 puff inhalation QID PRN for 06/12/24 06/12/24 Unknown History aerosol inhaler wheezing spironolactone 50 mg tablet 100 mg PO DAILY 06/12/24 06/12/24 06/10/24 History Physical Exam 2 Vital Signs and Narrative: Vital Signs: Last Vital Signs Temp 97.9 F 06/12/24 05:40 Pulse 66 06/12/24 05:40 Resp 14 06/12/24 05:40 BP 108/59 L 06/12/24 05:40 Pulse Ox 97 06/12/24 05:40 O2 Del Method Room Air 06/12/24 05:40 BMI result Body Mass Index 27.2 Constitutional: Alert, in no distress, overweight. Mental Status: Oriented to person, place and time. Eyes: Pupils are equal, round and reactive to light. sclera icteris Ear, Nose and Throat: Oropharynx clear, mucous membranes moist. Ears and nose without eformities. Trachea midline. Respiratory: Clear to auscultation. No wheezing, rales or rhonchi. Cardiovascular: S1 S2 regular. No murmurs, rubs or gallops. Gastrointestinal: Abdomen soft, non-tender, non-distended. Normal bowel sounds.? Neurologic: Cranial nerves II-XII grossly intact. No focal neurological deficits. Moves all extremities spontaneously.? Skin: No rashes or lesions.? Musculoskeletal: No cyanosis or clubbing. Psychiatric: Normal mood and affect? Results Labs 06/12/24 09:40 06/13/24 09:49 Labs: Laboratory Results - last 24 hr 06/11/24 06/11/24 06/11/24 17:10 17:12 17:13 MCV 110.0 H MCH 36.4 H MCHC 33.1 RDW 15.1 Plt Count 194 MPV 10.9 Immature Gran % (Auto) 0.8 H Neut % (Auto) 65.1 Lymph % (Auto) 17.8 L [place] % (Auto) 14.8 H Eos % (Auto) 1.0 Baso % (Auto) 0.5 Lymph # (Auto) 1.4 [place] # (Auto) 1.2 Eos # (Auto) 0.1 Baso # (Auto) 0.0 Abs Immat Gran (auto) 0.06 H Absolute Neuts (auto) 5.2 Absolute Nucleated RBC 0.000 Nucleated RBC % (auto) 0.0 PT 18.8 H INR 1.5 H APTT 37.4 H Anion Gap 15 Estim Creat Clear Calc 28.5 Estimated GFR 26 Random Glucose 122 H Calcium 9.6 Magnesium 1.6 Total Bilirubin 6.8 H Direct Bilirubin 2.5 H AST 39 H ALT 20 Alkaline Phosphatase 80 Ammonia 99 H Troponin I High Sens 5.7 Total Protein 6.4 L Albumin 3.0 L Urine Color Urine Appearance Urine pH Ur Specific [place] Urine Protein Urine Glucose (UA) Urine Ketones Urine Blood Urine Nitrite Ur Leukocyte Esterase Urine RBC Urine WBC Urine WBC Clumps Ur Squamous Epith Cells Urine Bacteria Hyaline Casts COVID-19 (SEGUNDO) Negative COVID-19 Clin Com See Note 06/12/24 01:57 MCV MCH MCHC RDW Plt Count MPV Immature Gran % (Auto) Neut % (Auto) Lymph % (Auto) [place] % (Auto) Eos % (Auto) Baso % (Auto) Lymph # (Auto) [place] # (Auto) Eos # (Auto) Baso # (Auto) Abs Immat Gran (auto) Absolute Neuts (auto) Absolute Nucleated RBC Nucleated RBC % (auto) PT INR APTT Anion Gap Estim Creat Clear Calc Estimated GFR Random Glucose Calcium Magnesium Total Bilirubin Direct Bilirubin AST ALT Alkaline Phosphatase Ammonia Troponin I High Sens Total Protein Albumin Urine Color Dark Yellow Urine Appearance Clear Urine pH 5.0 Ur Specific [place] 1.010 Urine Protein Negative Urine Glucose (UA) Negative Urine Ketones Negative Urine Blood Negative Urine Nitrite Negative Ur Leukocyte Esterase Trace H Urine RBC 0-2 Urine WBC 0-5 Urine WBC Clumps Present Ur Squamous Epith Cells 11-20 Urine Bacteria 1+ Hyaline Casts 11-20 COVID-19 (SEGUNDO) COVID-19 Clin Com Imaging Radiologist's Impressions: Impressions Abdomen/Pelvis CT 06/11/24 23:25 IMPRESSION: 1. Cirrhosis with a large volume of ascites. 2. Cholelithiasis. 3. Nonobstructing 3 mm calculus in the lower pole of the right kidney. 4. Sigmoid diverticulosis without evidence of acute diverticulitis. 5. Cardiomegaly. 6. A 1.8 cm cystic lesion in the pancreatic head is not appreciably changed as compared to prior studies. The known hepatic lesion is not well-seen on this unenhanced CT 7. Anasarca. Fleischner guidelines were followed. Assessment and Plan (1) Abdominal ascites: Status: Acute (2) Decompensation of cirrhosis of liver: Status: Acute Plan 74/F PMH etoh dependence in remission, etoh cirrhosis, copd, hfref, htn, breast ca, mood disorder, Hepatic encephalopathy--improved w/ lactulose in ED -continue Lactulose -consider Rifaximin Decompensated cirrhosis Ascietes -Paracentesis -hold lasix and aldactone in light of renal failure CKD3B, SANDRA, rule HRS -IVF -Neprhology consult -cvontinue Midodrine COPD--no exacerbation -Inhalers PRN Anemia of chronic disease -H/H stable, no indication for transfusion Fall, weakness--d/t decompensated cirrhosis -PT eval chronic HFeEF -continue metoprolol -hold Lasix until renal function improves Mood disorder -SSRI Abnormal MRI with concern for pancreatitic mass -study degraded by motion -CT w/o contrast--> mass not seen, noted prior liver lesion DVT prophylaxis--heparin Full code admission for at least 2 midnights d/t decompensated cirrhosis, SANDRA and hepatic encephalopathy presently cannot be safely managed on outpatient setting Quality Stroke Does the patient have a stroke diagnosis?: No VTE Prior VTE?: No VTE Risk Level:: Medical - moderate - high VTE Device Contraindication: N/A - Device Ordered VTE Drug Contraindication: N/A - Med Ordered
--- NOTE | 2024-06-12 09:29 | PHA.MEDREC ---
Pharmacy Consult ? Medication Reconciliation Pharmacy has completed the medication reconciliation. Spoke to patient and confirmed medication list. Patient verified she takes gabapentin 300 mg bid and spironolactone 100 mg daily. Last dose of medications was on tuesday except she took metoprolol and midodrine yesterday.
[2024-06-12 09:56] LABS: INTERNATIONAL NORM RATIO 1.6 (0.9-1.1); Prothrombin Time 19.3 SEC (11.1-13.3)
[2024-06-12] MEDS: Heparin Sodium,Porcine 5,000 UNIT/ML VIAL 5000 UNIT SUBCUT ×2 (10:13→21:07)
[2024-06-12] MEDS: Omeprazole 20 MG CAPSULE.DR PO (10:13)
[2024-06-12] MEDS: Lactated Ringers 1,000 ML 80 ML IVCONT (10:14)
[2024-06-12 10:17] LABS: Anion Gap 15 (12-20); Blood Urea Nitrogen 29 mg/dL (9-16); Calcium 9.7 mg/dL (8.4-10.2); Carbon Dioxide 24 mmol/L (22-29); Chloride 106 mmol/L (96-108); Creatinine Clr Calc Pharmacy 28.6; Estimated Glomerular Filt Rate 26; Glucose Random 107 mg/dL (60-115); Potassium 4.7 mmol/L (3.3-5.1); Sodium 140 mmol/L (135-145)
[2024-06-12 10:18] LABS: Ammonia 86 umol/L (13-55)
[2024-06-12 13:08] LABS: Hematocrit 25.5 % (37.0-47.0); Hemoglobin 8.5 g/dl (12.0-16.0); Mean Corpuscular HGB Conc 33.3 g/dl (31.0-35.0); Mean Corpuscular Hemoglobin 36.8 pg (27.0-33.0); Mean Platelet Volume 10.7 fL (9.4-12.3); Platelet Count 156 X10*3/uL (160-400); Red Blood Count 2.31 X10*6/uL (4.20-5.50); Red Cell Distribution Width 15.2 % (11.0-16.0); White Blood Count 6.7 X10*3/uL (4.8-10.8)
[2024-06-12 13:12] LABS: Mean Corpuscular Volume 110.4 fL (80.0-98.0)
--- NOTE | 2024-06-12 13:58 | MHC.CM.PN ---
IMM delivered. Patient lives in an apartment alone. Recently starting using a walker. States she has reached out to [facility] to schedule assessment for services, interested in MOW, home making, and grab bars for bathroom. Referral sent via [employer]. PCP Adele Knight MD HCP on file and verified. DP: Goal is home w/ new [facility] services. Daughter to transport. CM will continue to follow.
--- NOTE | 2024-06-12 14:25 | P.CONNP_ITS ---
History of Present Illness Reason for Consult Consult date: 06/12/24 Chief Complaint Chief complaint: Hepatic encephalpathy, decompensated cirrhosis History of Present Illness Narrative: 74-year-old female with history of alcohol abuse, cirrhosis w/ ascites requiring frequent paracentesis (last 2.4L on 05/17), histopry of hepatic encephalopathy, CKD3, COPD, chronic HFpEF, HTN who presents the ED on advise of her GI Dr Dr. Montoya after her daughter called stating that she has been falling, confused, dizzy, weak and short of breath for at least 2 days. She has also noted increased abdominal girth, with abdo discomfort, N/V and diarrhea all of which seem better today. She is noted to have worsening renal function with Creatine of 1.9 baseline around 1.3. She recently had adactone increased to 100. She had an MRI of the abdomen in [facility] showing a pancreatic cyst not seen on CT without contrast from 06/11/24. Patient is less confused today after getting lactulose earlier, ammonia level was 90 at that time. Baseline creatinine is 1 point 3-1.5 mg/dL. She was on furosemide 20 mg and spironolactone 100 mg a day. She did have poor appetite and nausea for the past 1 week along with diarrhea. [facility] Past Medical History Medical History Neuropathy Hx of screening mammography Vitamin B12 deficiency Vitamin D deficiency Annual physical exam Breast CA (~03/01/23) Flank pain, chronic Hx of abdominal pain Excessive drinking of alcohol COPD (chronic obstructive pulmonary disease) Pulmonary nodules Atrial arrhythmia NICM (nonischemic cardiomyopathy) Cardiac LV ejection fraction of 40-49% Osteoarthritis Colonoscopy refused Muscle spasm History of breast cancer in female Chronic GERD Anxiety, generalized Family History Family History Father Non-Hodgkin lymphoma Mother CVD (cardiovascular disease) Brother Lung disease Sister No problems noted. Maternal Grandfather Colon cancer Maternal Grandmother CVD (cardiovascular disease) Paternal Grandfather Unknown family medical history Paternal Grandmother Unknown family medical history Brother No problems noted. Son No problems noted. Son No problems noted. Daughter No problems noted. Other Mental health disorder Substance use disorder Surgical History Surgical History History of esophagogastroduodenoscopy (EGD) H/O colonoscopy History of removal of Port-a-Cath History of hysterectomy History of section H/O right mastectomy Social History Social History Household Members: None Housing: Apartment Do you presently have visiting nurse or other home services: No Alcohol intake: former Year quit: 2022 Patient Tobacco Use Status: Former Tobacco user Tobacco use type: Cigarette Years Smoked: 10 Smoked in Last 30 Days: No e-Cigarette/Vaping Use: Never Used Second Hand Smoke Exposure: No Use of substances other than those prescribed or required for medical reasons: No Advance Directives: Yes Advance Directives on File: Yes Advance Directives Date on File: 04/04/24 Nutrition Risks: No Nutritional Risk service: No 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 needs: No Hearing needs: No Vision needs: Yes (wears glasses ) Meds Allergies Allergy/AdvReac Type Severity Reaction Status Date / Time hydromorphone [From DILAUDID] Allergy Intermediate hives, Verified 06/11/24 16:46 itching losartan Allergy Intermediate Angioedema Verified 06/11/24 16:46 tramadol [From ULTRAM] Allergy Intermediate hives,itchi Verified 06/11/24 16:46 ng Active Medications: Current Medications Acetaminophen (Acetaminophen 325 Mg Tablet) 650 mg PO Q6H PRN PRN Reason: Pain, Mild (Pain Scale 1-3), fever or headache Albuterol Sulfate (Albuterol Sulfate 90 Mcg 8 Gm Inhaler) 2 puff INHALE RQID PRN PRN Reason: for wheezing Aspirin (Aspirin Enteric Coated 81 Mg Tablet.Dr) 81 mg PO DAILY [facility] Calcium Carbonate (Calcium Carbonate 750 Mg Tab.Chew) 750 mg PO Q4H PRN PRN Reason: Heartburn Fluoxetine HCl (Fluoxetine Hcl 20 Mg Capsule) 40 mg PO DAILY [facility] Fluticasone/Umeclidinium/Vilanterol (Fluticasone/Umeclidinium/Vilanterol 200/62.5/25 Blst.W.Dev) 1 puff INHALE RDAILY [facility] Gabapentin (Gabapentin 300 Mg Capsule) 300 mg PO BID [facility] Heparin Sodium (Porcine) (Heparin Sodium,Porcine 5,000 Unit/Ml Vial) 5,000 unit SUBCUT Q12H [facility], [facility] Last Admin: 06/12/24 10:13 Dose: 5,000 unit Lactated Ringer's (Lr) 1,000 mls @ 80 mls/hr IVCONT .[id number] [facility], [facility]1983 Last Admin: 06/12/24 10:14 Dose: 80 mls/hr Magnesium Hydroxide (Milk Of Magnesia 30 Ml Oral.Susp) 30 ml PO DAILY PRN PRN Reason: Constipation Melatonin (Melatonin 3 Mg Tablet) 6 mg PO BEDTIME PRN PRN Reason: Insomnia Metoprolol Succinate (Metoprolol Succinate Er 25 Mg Tab.Er.24h) 25 mg PO DAILY [facility]; Protocol Midodrine (Midodrine Hcl 5 Mg Tablet) 5 mg PO TID [facility] Multivitamins/Vitamin C (Multivitamin Tablet) 1 tab PO DAILY [facility] Omeprazole (Omeprazole 20 Mg Capsule.Dr) 20 mg PO DAILY@0630 [facility] Last Admin: 06/12/24 10:13 Dose: 20 mg Sodium Chloride (0.9 % Sodium Chloride Flush 3 Ml Syringe) 3 ml IVFLUSH QSHIFT [facility] Spironolactone (Spironolactone 25 Mg Tablet) 50 mg PO DAILY [facility]; Protocol Vitamin D (Cholecalciferol (Vitamin D3) 25 Mcg Tablet) 50 mcg PO DAILY [facility] Home Medications ?Medication ?Instructions ?Recorded ?Confirmed ?Last Taken ?Type aspirin 81 mg tablet,delayed 81 mg PO DAILY 12/18/20 06/12/24 06/10/24 History release cholecalciferol (vitamin D3) 50 50 mcg PO DAILY 12/18/20 06/12/24 06/10/24 History mcg (2,000 unit) capsule omeprazole 20 mg capsule,delayed 20 mg PO DAILY@0630 07/15/23 06/12/24 06/10/24 History release acetaminophen 500 mg tablet 500 mg PO BID PRN Pain 03/31/24 06/12/24 Unknown History vitamin B complex 1 tab PO DAILY 03/31/24 06/12/24 06/10/24 History albuterol sulfate 90 mcg/actuation 2 puff inhalation QID PRN for 06/12/24 06/12/24 Unknown History aerosol inhaler wheezing spironolactone 50 mg tablet 100 mg PO DAILY 06/12/24 06/12/24 06/10/24 History Physical Exam Vital Signs: Last Vital Signs Temp 97.8 F 06/12/24 13:25 Pulse 69 06/12/24 13:25 Resp 16 06/12/24 13:25 BP 109/50 L 06/12/24 13:25 Pulse Ox 98 06/12/24 13:25 O2 Del Method Room Air 06/12/24 13:25 BMI result Body Mass Index 27.2 Neck Neck: Yes supple Resp Auscultation: clear to auscultation bilaterally Cardio Palpation: no palpable S3 Heart sounds: no rubs GI Palpation (GI): Soft to palpation Auscultation: normal bowel sounds Neuro Motor exam (neuro): no asterixis Results Lab Results 06/12/24 09:40 06/12/24 09:40 Lab results: Chemistry 06/11/24 06/12/24 17:10 09:40 Sodium 137 140 Potassium 4.5 4.7 Carbon Dioxide 21 L 24 BUN 29 H 29 H Creatinine 1.93 H 1.92 H Calcium 9.6 9.7 Hematology 06/11/24 06/12/24 17:13 09:40 WBC 8.0 6.7 Hgb 9.5 L 8.5 L Plt Count 194 156 L Urinalysis 06/12/24 01:57 Urine Color Dark Yellow Urine Appearance Clear Urine pH 5.0 Ur Specific Dearing 1.010 Urine Protein Negative Urine Glucose (UA) Negative Urine Ketones Negative Urine Blood Negative Urine Nitrite Negative Ur Leukocyte Esterase Trace H Urine RBC 0-2 Urine WBC 0-5 Ur Squamous Epith Cells 11-20 Hyaline Casts 11-20 Assessment and Plan (1) SANDRA (acute kidney injury): Status: Resolved (2) CKD (chronic kidney disease) stage 3, GFR 30-59 ml/min: Status: Acute Plan 74-year-old woman with a history of cirrhosis as acute kidney injury superimposed on CKD. SANDRA due to hypoperfusion in the setting of cirrhosis. She was on Lasix and spironolactone in the setting of diarrhea which could have precipitated hypoperfusion. Recommendation hold Lasix and spironolactone for the time being. Cautious hydration with Ringer's lactate. Agree with abdominal paracentesis Avoid hypotension Check urine for sodium creatinine and protein. Watch urine output Continue to avoid nephrotoxic agents. No indication for dialysis. Expiratory renal recovery. Procedures Date of Service Date of Service: 06/12/24
[2024-06-12] MEDS: Acetaminophen 325 MG TABLET 650 MG PO ×2 (14:41→21:22)
[2024-06-12] MEDS: 0.9 % Sodium Chloride Flush 3 ML SYRINGE IVFLUSH (17:17)
[2024-06-12] MEDS: Gabapentin 300 MG CAPSULE PO (21:06)
--- NOTE | 2024-06-12 22:44 | PC.NURSE ---
This RN assumed pt care @ 2140 Pts 2215 bag of LR not given as previous bag still running. Plan of care ongoing.
--- NOTE | 2024-06-12 23:41 | PC.NURSE ---
Hospitalist Erik notified and aware of pts b/p of . Plan of care ongoing.
[2024-06-13] MEDS: Omeprazole 20 MG CAPSULE.DR PO (06:18)
--- NOTE | 2024-06-13 06:20 | PC.NURSE ---
Pt medicated per dec. Plan of care ongoing..
[2024-06-13 06:41] VITALS: BP 107/57; PULSE 68; RESP 14; TEMP 36.5; O2SAT 98
[2024-06-13] MEDS: Metoprolol Succinate ER 25 MG TAB.ER.24H PO (08:00)
[2024-06-13] MEDS: FLUoxetine HCl 20 MG CAPSULE 40 MG PO (08:00)
[2024-06-13] MEDS: Gabapentin 300 MG CAPSULE PO (08:00)
[2024-06-13] MEDS: Aspirin Enteric Coated 81 MG TABLET.DR PO (08:00)
[2024-06-13] MEDS: Multivitamin TABLET 1 TAB PO (08:01)
[2024-06-13] MEDS: Spironolactone 25 MG TABLET 50 MG PO (08:01)
[2024-06-13] MEDS: Cholecalciferol (Vitamin D3) 25 MCG TABLET 50 MCG PO (08:01)
--- NOTE | 2024-06-13 08:36 | PC.RT ---
pt took own trelegy. Pt will need to take ours inhouse that is dispensed to her as it is our policy. Pt will need to put her trelegy away and use when discharged.
[2024-06-13 10:00] VITALS: BP 99/50; PULSE 71; RESP 14; TEMP 36.6; O2SAT 99
[2024-06-13] MEDS: Heparin Sodium,Porcine 5,000 UNIT/ML VIAL 5000 UNIT SUBCUT ×2 (10:08→21:57)
[2024-06-13] MEDS: Midodrine HCl 5 MG TABLET PO (10:08)
[2024-06-13 10:36] LABS: Anion Gap 12 (12-20); Blood Urea Nitrogen 27 mg/dL (9-16); Calcium 9.2 mg/dL (8.4-10.2); Carbon Dioxide 22 mmol/L (22-29); Chloride 107 mmol/L (96-108); Creatinine Clr Calc Pharmacy 32.1; Estimated Glomerular Filt Rate 29; Glucose Random 121 mg/dL (60-115); Potassium 4.2 mmol/L (3.3-5.1); Sodium 137 mmol/L (135-145)
[2024-06-13] MEDS: Lactated Ringers 1,000 ML 80 ML IVCONT (11:31)
--- NOTE | 2024-06-13 13:35 | MHC.CM.PN ---
CM met with pt and her dtr, pt had [facility] rep see them and is pleased that she will be getting services from them. Referral submitted for [facility] services for home PT.
--- NOTE | 2024-06-13 13:53 | P.PNNP_ITS ---
Subjective Subjective Date of Service: 06/13/24 Physical Exam 2 Vital Signs: Vital Signs: Last Vital Signs Temp 98 F 06/13/24 10:00 Pulse 71 06/13/24 10:00 Resp 14 06/13/24 10:00 BP 99/50 L 06/13/24 10:00 Pulse Ox 99 06/13/24 10:00 O2 Del Method Room Air 06/13/24 10:00 BMI result Body Mass Index 27.2 Neck: Neck: Yes supple Resp: Auscultation: clear to auscultation bilaterally Cardio: Palpation: no palpable S3 Heart sounds: no rubs GI: Palpation (GI): Soft to palpation Auscultation: normal bowel sounds Neuro: Motor exam (neuro): no asterixis Objective Data Labs 06/12/24 09:40 06/13/24 09:49 Labs: Laboratory Results - last 24 hr 06/13/24 09:49 Sodium 137 Potassium 4.2 Chloride 107 Carbon Dioxide 22 Anion Gap 12 BUN 27 H Creatinine 1.71 H Estim Creat Clear Calc 32.1 Estimated GFR 29 Random Glucose 121 H Calcium 9.2 Microbiology Microbiology Results: Microbiology 06/11/24 23:16 Abdominal Fluid Gram Stain - Final 06/11/24 23:16 Abdominal Fluid Anaerobic Culture - Preliminary No growth to date. 06/11/24 23:16 Abdominal Fluid Body Fluid Culture - Preliminary No growth to date. Procedures Date of Service Date of Service: 06/13/24 Assessment & Plan Assessment and plan (1) SANDRA (acute kidney injury): Status: Resolved (2) CKD (chronic kidney disease) stage 3, GFR 30-59 ml/min: Status: Acute Plan 74-year-old woman with a history of cirrhosis as acute kidney injury superimposed on CKD. SANDRA due to hypoperfusion in the setting of cirrhosis. She was on Lasix and spironolactone in the setting of diarrhea which could have precipitated hypoperfusion. Recommendation Continue to hold Lasix and spironolactone for the time being. Cautious hydration with Ringer's lactate. Agree with abdominal paracentesis as needed Avoid hypotension Marginal improvement in serum creatinine. Watch urine output Continue to avoid nephrotoxic agents. No indication for dialysis. Expiratory renal recovery. Time Spent With Patient Time: Total time managing care of this patient today ____ minutes.
[2024-06-13 14:00] VITALS: BP 100/53; PULSE 70; RESP 14; TEMP 36.4; O2SAT 100
--- NOTE | 2024-06-13 16:35 | HO.PM.IMPN ---
Subjective Subjective Date of Service: 06/13/24 Interval History: pt seems better today, no confusion, no abdominal pain, renal function is better Physical Exam Vital Signs: Vital Signs: Last Vital Signs Temp 97.5 F 06/13/24 14:00 Pulse 70 06/13/24 14:00 Resp 14 06/13/24 14:00 BP 100/53 L 06/13/24 14:00 Pulse Ox 100 06/13/24 14:00 O2 Del Method Room Air 06/13/24 14:00 BMI result Body Mass Index 27.2 Const: Other: General: AO X 3, no acute distress Resp: CTA bilateral CVS: S1,S2,RRR GI: +BS, + distention, NT Skin: No rash, bruse on arm, swome swelling, non tender Neuro: motor grossly intact Psych: appropriate affect Objective Data Active Medications Acetaminophen (Acetaminophen 325 Mg Tablet) 650 mg PO Q6H PRN PRN Reason: Pain, Mild (Pain Scale 1-3), fever or headache Last Admin: 06/12/24 21:22 Dose: 650 mg Documented By: KIM Albuterol Sulfate (Albuterol Sulfate 90 Mcg 8 Gm Inhaler) 2 puff INHALE RQID PRN PRN Reason: for wheezing Aspirin (Aspirin Enteric Coated 81 Mg Tablet.Dr) 81 mg PO DAILY [facility] Last Admin: 06/13/24 08:00 Dose: 81 mg Documented By: TEVIN Calcium Carbonate (Calcium Carbonate 750 Mg Tab.Chew) 750 mg PO Q4H PRN PRN Reason: Heartburn Fluoxetine HCl (Fluoxetine Hcl 20 Mg Capsule) 40 mg PO DAILY [facility] Last Admin: 06/13/24 08:00 Dose: 40 mg Documented By: TEVIN Fluticasone/Umeclidinium/Vilanterol (Fluticasone/Umeclidinium/Vilanterol 200/62.5/25 Blst.W.Dev) 1 puff INHALE RDAILY [facility] Last Admin: 06/13/24 08:36 Dose: Not Given Documented By: SCOTTY Non-Admin Reason: pt took own med trelegy. Gabapentin (Gabapentin 300 Mg Capsule) 300 mg PO BID [facility] Last Admin: 06/13/24 08:00 Dose: 300 mg Documented By: TEVIN Heparin Sodium (Porcine) (Heparin Sodium,Porcine 5,000 Unit/Ml Vial) 5,000 unit SUBCUT Q12H [facility] Last Admin: 06/13/24 10:08 Dose: 5,000 unit Documented By: TEVIN Lactated Ringer's (Lr) 1,000 mls @ 80 mls/hr IVCONT .[id number] [facility] Last Admin: 06/13/24 11:31 Dose: 80 mls/hr Documented By: TEVIN Magnesium Hydroxide (Milk Of Magnesia 30 Ml Oral.Susp) 30 ml PO DAILY PRN PRN Reason: Constipation Melatonin (Melatonin 3 Mg Tablet) 6 mg PO BEDTIME PRN PRN Reason: Insomnia Metoprolol Succinate (Metoprolol Succinate Er 25 Mg Tab.Er.24h) 25 mg PO DAILY [facility]; Protocol Last Admin: 06/13/24 08:00 Dose: 25 mg Documented By: TEVIN Midodrine (Midodrine Hcl 5 Mg Tablet) 5 mg PO TID [facility] Last Admin: 06/13/24 16:33 Dose: Not Given Documented By: TEVIN Non-Admin Reason: off unit at paracentesis Multivitamins/Vitamin C (Multivitamin Tablet) 1 tab PO DAILY [facility] Last Admin: 06/13/24 08:01 Dose: 1 tab Documented By: TEVIN Omeprazole (Omeprazole 20 Mg Capsule.) 20 mg PO DAILY@0630 [facility] Last Admin: 06/13/24 06:18 Dose: 20 mg Documented By: ASHLYN Sodium Chloride (0.9 % Sodium Chloride Flush 3 Ml Syringe) 3 ml IVFLUSH QSHIFT [facility] Last Admin: 06/13/24 16:33 Dose: Not Given Documented By: TEVIN Non-Admin Reason: IV Running Spironolactone (Spironolactone 25 Mg Tablet) 50 mg PO DAILY [facility]; Protocol Last Admin: 06/13/24 08:01 Dose: 50 mg Documented By: TEVIN Vitamin D (Cholecalciferol (Vitamin D3) 25 Mcg Tablet) 50 mcg PO DAILY [facility] Last Admin: 06/13/24 08:01 Dose: 50 mcg Documented By: TEVIN Labs 06/14/24 13:51 06/14/24 09:02 Labs: Laboratory Results - last 24 hr 06/13/24 09:49 Anion Gap 12 Estim Creat Clear Calc 32.1 Estimated GFR 29 Random Glucose 121 H Calcium 9.2 Microbiology Microbiology Results: Microbiology 06/11/24 23:16 Gram Stain - Final Abdominal Fluid Anaerobic Culture - Preliminary No growth to date. Body Fluid Culture - Preliminary No growth to date. Assessment and Plan (1) SANDRA (acute kidney injury): Status: Resolved Plan 74/F PMH etoh dependence in remission, etoh cirrhosis, copd, hfref, htn, breast ca, mood disorder, Hepatic encephalopathy--improved w/ lactulose in ED -continue Lactulose -consider Rifaximin on outpatient basis cirrhosis of the liver Ascietes -Paracentesis done today, diagnostic para yesterd - -resume lasix and aldactone and monitor renla fuction -continue midodrine CKD3B, SANDRA, rule HRS -IVF -Neprhology consult -cvontinue Midodrine COPD--no exacerbation -Inhalers PRN Anemia of chronic disease -H/H stable, no indication for transfusion Fall, weakness--d/t decompensated cirrhosis -PT eval chronic HFeEF -continue metoprolol -hold Lasix until renal function improves Mood disorder -SSRI Abnormal MRI with concern for pancreatitic mass -study degraded by motion -CT w/o contrast--> mass not seen, noted prior liver lesion DVT prophylaxis--heparin Full code admission for at least 2 midnights d/t decompensated cirrhosis, SANDRA and hepatic encephalopathy presently cannot be safely managed on outpatient setting Quality Stroke Does the patient have a stroke diagnosis?: No VTE Prior VTE?: No VTE Risk Level:: Medical - moderate - high VTE Device Contraindication: Treatment Not Indicated VTE Drug Contraindication: N/A - Med Ordered
[2024-06-13] MEDS: ondansetron HCL 4 MG/2 ML VIAL IVPUSH (17:22)
[2024-06-13] MEDS: Lactated Ringers 1,000 ML 100 ML IVCONT (17:24)
--- NOTE | 2024-06-13 18:51 | PC.NURSE ---
Pt awaiting bed on medr. Had paracentesis today removed 3L tolerated well. Currently resting. IVF infusing per orders.
[2024-06-13 19:37] LABS: Glucose, Whole Blood 124 mg/dL (60-115)
[2024-06-13 19:40] VITALS: BP 118/50; PULSE 77; RESP 20; TEMP 36.7; O2SAT 98
--- NOTE | 2024-06-13 20:00 | PC.NURSE ---
Patient is awake and alert to person and month, not oriented to situation or year. Skin jaundice, warm, dry. resp even and non labored. patient speaking in full, clear sentences. Patient reports feeling unwell since after lunch, reports dizziness. Vitals and blood sugar assessed and WNL. It was reported to this RN by previous shift that patient has swelling of her left arm. Patient w/ swelling, bruising, and warmth to left upper arm, positive CSM. all findings reported to hospitalist and new orders obtained.
[2024-06-13 20:47] LABS: Ammonia 199 umol/L (13-55)
[2024-06-13 21:48] VITALS: BP 126/66; PULSE 81; RESP 16; TEMP 36.3; O2SAT 94
[2024-06-13 23:51] VITALS: BP 149/74; PULSE 89; RESP 18; TEMP 36.6; O2SAT 97
--- NOTE | 2024-06-13 23:51 | PM.EVENT ---
Event Note Date of Service: 06/13/24 Event Note: Patient is found to be drowsy. Ammonia elevated at 199. Will order lactulose [place] scheduled for hepatic encephalopathy. Repeat ammonia in a.m. Time Spent With Patient Time: Total time managing care of this patient today ____ minutes.
[2024-06-14] VITALS (10 sets, daily range): BP systolic 132–156; BP diastolic 54–75; PULSE 79–90; RESP 14–20; TEMP 36.1–37.2; O2SAT 96–99
[2024-06-14] MEDS: Lactulose 20 GM/30 ML SOLUTION 200 GM PR (00:42)
--- NOTE | 2024-06-14 01:19 | PC.NURSE ---
Addendum entered by Collette Raines RN 06/14/24 05:07: Patient incontinent with medium, soft stool. Original Note: Patient admitted to room 377 from overflow. Patient unable to participate in admission assessment, patient only stated name and birthday, patient is drowsy/sleepy. Upon reviewing patient's labs, this RN noted ammonia level 199 drawn at 2031 on 06/13/24 and per mar patient refused daily dose of lactulose. Patient unable take po due to drowsiness, Dr. Valencia made aware. Orders for pr lactulose q6 and repeat ammonia in the am labs. Administered per dec, patient tolerated well.
[2024-06-14] MEDS: Lactated Ringers 1,000 ML 100 ML IVCONT ×2 (02:14→16:56)
[2024-06-14 08:40] LABS: Albumin Peritoneal Fluid 0.7
[2024-06-14 08:41] LABS: Total Protein Peritoneal Fluid 1.3
[2024-06-14 08:42] LABS: LDH Peritoneal Fluid 63
[2024-06-14 08:43] LABS: Glucose Peritoneal Fluid 130
[2024-06-14 09:15] LABS: Hematocrit 22.4 % (37.0-47.0); Hemoglobin 7.6 g/dl (12.0-16.0); Mean Corpuscular HGB Conc 33.9 g/dl (31.0-35.0); Mean Corpuscular Hemoglobin 37.1 pg (27.0-33.0); Mean Corpuscular Volume 109.3 fL (80.0-98.0); Mean Platelet Volume 10.6 fL (9.4-12.3); Platelet Count 148 X10*3/uL (160-400); Red Blood Count 2.05 X10*6/uL (4.20-5.50); Red Cell Distribution Width 15.9 % (11.0-16.0); White Blood Count 9.5 X10*3/uL (4.8-10.8)
[2024-06-14 09:28] LABS: Ammonia 73 umol/L (13-55)
[2024-06-14 09:29] LABS: Anion Gap 14 (12-20); Blood Urea Nitrogen 28 mg/dL (9-16); Calcium 9.2 mg/dL (8.4-10.2); Carbon Dioxide 22 mmol/L (22-29); Chloride 109 mmol/L (96-108); Creatinine Clr Calc Pharmacy 37.1; Estimated Glomerular Filt Rate 35; Glucose Random 104 mg/dL (60-115); Potassium 4.9 mmol/L (3.3-5.1); Sodium 140 mmol/L (135-145)
[2024-06-14] MEDS: cefTRIAXone sodium 1 GM in 0.9 % Sodium Chloride 50 ML IV (11:59)
--- NOTE | 2024-06-14 12:04 | PM.GICN ---
History of Present Illness Data of Consult Service Date: 06/14/24 Requesting physician: Barber Roberts Primary Care Provider: Adele Knight MD HPI Reason for consult: Hepatic encephalopathy, GIB 74 YF with etOH use disorder leading to decompensated cirrhosis, COPD, HTN, HFpEF, (EF 55-60% on 03/04/2022), IBS, hx of breast cancer, and hx of alcohol use disorder who presented to the hospital on my behest for worsening mental status reported by her daughter. Patient is well known to our service for decompensated etOH related cirrhosis. More recently undergoing evaluation for LIRADS 3 liver lesion on MRI and is ed to have a triple phased CT scan as pt was unable to tolerate MRI x2. Per report from the daughter, for the past 2-3 days, patient has been having significant weakness, lightheadedness, even had a full. A day before admission, she was also noted to be much more drowsy and confused. On presentation to the hospital, she was noted to be vitally stable, with labs significant for pancytopenia. INR of 1.5. Chem 7 with worsening renal function with creatinine up to 1.9 down to 1.48 today. Urinalysis suggestive of prerenal injury given hyaline casts. She underwent a paracentesis on arrival however that was not sent for cell count to rule out peritonitis. She was also noted to have a significant left upper arm hematoma on exam. Review of Systems Review of Systems: Yes Unobtainable due to mental status PMFSH Past Medical History Medical History Neuropathy Hx of screening mammography Vitamin B12 deficiency Vitamin D deficiency Annual physical exam Breast CA (~03/01/23) Flank pain, chronic Hx of abdominal pain Excessive drinking of alcohol COPD (chronic obstructive pulmonary disease) Pulmonary nodules Atrial arrhythmia NICM (nonischemic cardiomyopathy) Cardiac LV ejection fraction of 40-49% Osteoarthritis Colonoscopy refused Muscle spasm History of breast cancer in female Chronic GERD Anxiety, generalized Family History Family History Father Non-Hodgkin lymphoma Mother CVD (cardiovascular disease) Brother Lung disease Sister No problems noted. Maternal Grandfather Colon cancer Maternal Grandmother CVD (cardiovascular disease) Paternal Grandfather Unknown family medical history Paternal Grandmother Unknown family medical history Brother No problems noted. Son No problems noted. Son No problems noted. Daughter No problems noted. Other Mental health disorder Substance use disorder Surgical History Surgical History History of esophagogastroduodenoscopy (EGD) H/O colonoscopy History of removal of Port-a-Cath History of hysterectomy History of section H/O right mastectomy Social History Social History Household Members: Unknown / Unable to assess Housing: Unknown / Unable to assess Alcohol intake: former Year quit: 2022 Patient Tobacco Use Status: Former Tobacco user Tobacco use type: Cigarette Years Smoked: 10 e-Cigarette/Vaping Use: Never Used Second Hand Smoke Exposure: No Advance Directives Date on File: 04/04/24 service: No 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 needs: No Hearing needs: No Vision needs: Yes (wears glasses ) Meds Allergies Allergy/AdvReac Type Severity Reaction Status Date / Time hydromorphone [From DILAUDID] Allergy Intermediate hives, Verified 06/11/24 16:46 itching losartan Allergy Intermediate Angioedema Verified 06/11/24 16:46 tramadol [From ULTRAM] Allergy Intermediate hives,itchi Verified 06/11/24 16:46 ng Active Medications: Current Medications Acetaminophen (Acetaminophen 325 Mg Tablet) 650 mg PO Q6H PRN PRN Reason: Pain, Mild (Pain Scale 1-3), fever or headache Last Admin: 06/12/24 21:22 Dose: 650 mg Albuterol Sulfate (Albuterol Sulfate 90 Mcg 8 Gm Inhaler) 2 puff INHALE RQID PRN PRN Reason: for wheezing Aspirin (Aspirin Enteric Coated 81 Mg Tablet.Dr) 81 mg PO DAILY [facility] Last Admin: 06/13/24 08:00 Dose: 81 mg Calcium Carbonate (Calcium Carbonate 750 Mg Tab.Chew) 750 mg PO Q4H PRN PRN Reason: Heartburn Fluoxetine HCl (Fluoxetine Hcl 20 Mg Capsule) 40 mg PO DAILY [facility] Last Admin: 06/13/24 08:00 Dose: 40 mg Fluticasone/Umeclidinium/Vilanterol (Fluticasone/Umeclidinium/Vilanterol 200/62.5/25 Blst.W.Dev) 1 puff INHALE RDAILY [facility] Last Admin: 06/14/24 12:04 Dose: Not Given Gabapentin (Gabapentin 300 Mg Capsule) 300 mg PO BID [facility] Last Admin: 06/13/24 21:58 Dose: Not Given Heparin Sodium (Porcine) (Heparin Sodium,Porcine 5,000 Unit/Ml Vial) 5,000 unit SUBCUT Q12H [facility] Last Admin: 06/13/24 21:57 Dose: 5,000 unit Lactated Ringer's (Lr) 1,000 mls @ 100 mls/hr IVCONT .Q10H [facility] Last Admin: 06/14/24 02:14 Dose: 100 mls/hr Ceftriaxone Sodium 1 gm/ (Sodium Chloride) 50 mls @ 100 mls/hr IV Q24H [facility] Last Admin: 06/14/24 11:59 Dose: 100 mls/hr Octreotide Acetate 500 mcg/ (Sodium Chloride) 501 mls @ 25.05 mls/hr IVCONT .Q20H [facility] Lactulose (Lactulose 320 Gm/480 Ml Solution) 200 gm PA Q6H [facility] Lactulose (Lactulose 20 Gm/30 Ml Solution) 30 gm PO TID [facility] Magnesium Hydroxide (Milk Of Magnesia 30 Ml Oral.Susp) 30 ml PO DAILY PRN PRN Reason: Constipation Melatonin (Melatonin 3 Mg Tablet) 6 mg PO BEDTIME PRN PRN Reason: Insomnia Metoprolol Succinate (Metoprolol Succinate Er 25 Mg Tab.Er.24h) 25 mg PO DAILY [facility]; Protocol Last Admin: 06/13/24 08:00 Dose: 25 mg Midodrine (Midodrine Hcl 5 Mg Tablet) 5 mg PO TID [facility] Last Admin: 06/13/24 21:58 Dose: Not Given Multivitamins/Vitamin C (Multivitamin Tablet) 1 tab PO DAILY [facility] Last Admin: 06/13/24 08:01 Dose: 1 tab Omeprazole (Omeprazole 20 Mg Capsule.Dr) 20 mg PO DAILY@0630 [facility] Last Admin: 06/14/24 05:43 Dose: Not Given Ondansetron HCl (Ondansetron Hcl 4 Mg/2 Ml Vial) 4 mg IVPUSH Q8H PRN PRN Reason: Nausea and Vomiting Last Admin: 06/13/24 17:22 Dose: 4 mg Pantoprazole Sodium (Pantoprazole Sodium 40 Mg/10 Ml Vial) 40 mg IVPUSH BID@0630,1630 [facility] Sodium Chloride (0.9 % Sodium Chloride Flush 3 Ml Syringe) 3 ml IVFLUSH QSHIFT [facility] Last Admin: 06/13/24 23:23 Dose: Not Given Vitamin D (Cholecalciferol (Vitamin D3) 25 Mcg Tablet) 50 mcg PO DAILY [facility] Last Admin: 06/13/24 08:01 Dose: 50 mcg Home Medications ?Medication ?Instructions ?Recorded ?Confirmed ?Last Taken ?Type aspirin 81 mg tablet,delayed 81 mg PO DAILY 12/18/20 06/12/24 06/10/24 History release cholecalciferol (vitamin D3) 50 50 mcg PO DAILY 12/18/20 06/12/24 06/10/24 History mcg (2,000 unit) capsule omeprazole 20 mg capsule,delayed 20 mg PO DAILY@0630 07/15/23 06/12/24 06/10/24 History release acetaminophen 500 mg tablet 500 mg PO BID PRN Pain 03/31/24 06/12/24 Unknown History vitamin B complex 1 tab PO DAILY 03/31/24 06/12/24 06/10/24 History albuterol sulfate 90 mcg/actuation 2 puff inhalation QID PRN for 06/12/24 06/12/24 Unknown History aerosol inhaler wheezing spironolactone 50 mg tablet 100 mg PO DAILY 06/12/24 06/12/24 06/10/24 History Physical Exam Vital Signs: Vital Signs: Last Vital Signs Temp 98.7 F 06/14/24 11:39 Pulse 90 06/14/24 11:39 Resp 14 06/14/24 11:39 BP 142/75 H 06/14/24 11:39 Pulse Ox 96 06/14/24 11:39 O2 Del Method Room Air 06/14/24 11:39 BMI result Body Mass Index 27.2 Frail-appearing Lethargic Grossly jaundiced NG tube in place with maroonish aspirate visible Abdomen soft, mildly distended, nontender Left upper extremity with large hematoma with tender and mildly tense forearm Pitting edema in lower extremities bilaterally Somnolent but answers some questions, adequately protecting airway, oriented x2, in restraints Results Labs 06/14/24 13:51 06/14/24 09:02 Labs: Short CBC 06/14/24 Range/Units 09:02 WBC 9.5 (4.8-10.8) X10*3/uL Hgb 7.6 L (12.0-16.0) g/dl Hct 22.4 L (37.0-47.0) % Plt Count 148 L (160-400) X10*3/uL BMP 06/14/24 09:02 Sodium 140 Potassium 4.9 Chloride 109 H Carbon Dioxide 22 BUN 28 H Creatinine 1.48 H Calcium 9.2 Microbiology Microbiology Results: Microbiology 06/11/24 23:16 Abdominal Fluid Gram Stain - Final 06/11/24 23:16 Abdominal Fluid Anaerobic Culture - Preliminary No growth to date. 06/11/24 23:16 Abdominal Fluid Body Fluid Culture - Final No growth after 2 days Assessment and Plan (1) Decompensated hepatic cirrhosis: Status: Acute (2) SANDRA (acute kidney injury): Status: Resolved (3) Ascites: Qualifiers: Ascites type: due to alcoholic cirrhosis Qualified Code(s): K70.31 - Alcoholic cirrhosis of liver with ascites Status: Resolved (4) Frailty: Status: Acute (5) Hepatic encephalopathy: Status: Acute (6) Edema: Status: Acute (7) Hematoma of left upper extremity: Status: Acute Plan #Decomp etOH assoc cirrhosis - MELD-Na 26 - HE #UTI #SANDRA #Liver lesion #EtOH use disorder in remission Pt qith rapid decline in overall health status including worsening weakness, dizziness, encephalopathy and jaundice over the past 1-2 weeks. Labs with declining renal function and H/H. Plan: - HOLD all diuretics - Start albumin 25% 100ml QID to be cont'd for at least 2 days - Start midodrine 5 mg TID. If MAP does not increase by 10, can increase dose to 10mg TID - Blood cultures x2 - US Abd for ascites eval - if reaccumulated pls proceed with DIAGNOSTIC para (i.e no more than 500cc removed) and send for cell count, culture and cytology to r/o SBP. - Cont lactulose 30g through NGT every 4h until pt has had 2-3 BMs - Add RIfaximin 550 BID - pls check with pharm if can be crushed and given through NGT - Consider non con CT of LUE for further eval of hematoma and to r/o compartment syndrome - Drop in counts likely from the large hematoma but if BMs are melanotic, can review indication for EGD. - Cont PPI, octreotide and CTX - If HE and/or renal function does not improve by tmrw, low threshold to reach out to [facility] for ? transfer. - As above, pt also needs further eval of LIRADS 3 liver lesion in segment IV but renal function not permissive for triple phased CT at this time. Thank you for allowing me to participate in her care. Please do not hesitate to reach out for any questions or concerns. Procedures Date of Service Date of Service: 06/14/24
[2024-06-14] MEDS: Octreotide Acetate 500 MCG in 0.9 % Sodium Chloride 500 ML 25.05 MCG IVCONT (12:20)
--- NOTE | 2024-06-14 13:05 | P.PNNP_ITS ---
Subjective Subjective Date of Service: 06/14/24 Interval history: pt seems better today, no confusion, no abdominal pain, renal function is better Physical Exam 2 Vital Signs: Vital Signs: Last Vital Signs Temp 98.7 F 06/14/24 11:39 Pulse 90 06/14/24 11:39 Resp 14 06/14/24 11:39 BP 142/75 H 06/14/24 11:39 Pulse Ox 96 06/14/24 11:39 O2 Del Method Room Air 06/14/24 11:39 BMI result Body Mass Index 27.2 Neck: Neck: Yes supple Resp: Auscultation: clear to auscultation bilaterally Cardio: Palpation: no palpable S3 Heart sounds: no rubs GI: Palpation (GI): Soft to palpation Auscultation: normal bowel sounds Neuro: Motor exam (neuro): no asterixis Objective Data Labs 06/14/24 09:02 06/14/24 09:02 Labs: Laboratory Results - last 24 hr 06/11/24 06/13/24 06/13/24 23:16 19:33 20:31 WBC RBC Hgb Hct MCV MCH MCHC RDW Plt Count MPV Absolute Nucleated RBC Nucleated RBC % (auto) Sodium Potassium Chloride Carbon Dioxide Anion Gap BUN Creatinine Estim Creat Clear Calc Estimated GFR POC Glucose 124 H Random Glucose Calcium Ammonia 199 H Peritoneal Tot Protein 1.3 Peritoneal Albumin 0.7 Peritoneal LDH 63 Peritoneal Glucose 130 06/14/24 09:02 WBC 9.5 RBC 2.05 L Hgb 7.6 L Hct 22.4 L MCV 109.3 H MCH 37.1 H MCHC 33.9 RDW 15.9 Plt Count 148 L MPV 10.6 Absolute Nucleated RBC 0.000 Nucleated RBC % (auto) 0.0 Sodium 140 Potassium 4.9 Chloride 109 H Carbon Dioxide 22 Anion Gap 14 BUN 28 H Creatinine 1.48 H Estim Creat Clear Calc 37.1 Estimated GFR 35 POC Glucose Random Glucose 104 Calcium 9.2 Ammonia 73 H Peritoneal Tot Protein Peritoneal Albumin Peritoneal LDH Peritoneal Glucose Microbiology Microbiology Results: Microbiology 06/11/24 23:16 Abdominal Fluid Gram Stain - Final 06/11/24 23:16 Abdominal Fluid Anaerobic Culture - Preliminary No growth to date. 06/11/24 23:16 Abdominal Fluid Body Fluid Culture - Final No growth after 2 days Procedures Date of Service Date of Service: 06/14/24 Assessment & Plan Assessment and plan (1) SANDRA (acute kidney injury): Status: Resolved (2) CKD (chronic kidney disease) stage 3, GFR 30-59 ml/min: Status: Acute Plan 74-year-old woman with a history of cirrhosis as acute kidney injury superimposed on CKD. SANDRA due to hypoperfusion in the setting of cirrhosis. She was on Lasix and spironolactone in the setting of diarrhea which could have precipitated hypoperfusion. Creatinine is trending down Recommendation Continue to hold Lasix and spironolactone for the time being. Cautious hydration with Ringer's lactate. Decrease rate to 50 cc/hour Agree with abdominal paracentesis as needed Avoid hypotension Marginal improvement in serum creatinine. Watch urine output Continue to avoid nephrotoxic agents. No indication for dialysis. Expiratory renal recovery. Time Spent With Patient Time: Total time managing care of this patient today ____ minutes. Progress Note: Quality Stroke Does the patient have a stroke diagnosis?: No
[2024-06-14 13:16] LABS: ABG HCO3 23 mmol/L (22-26); ABG pCO2 28 mmHg (32-45); ABG pH 7.52 (7.35-7.45); ABG pO2 92 mmHg (83-108)
[2024-06-14] MEDS: Lactulose 20 GM/30 ML SOLUTION 30 GM PO ×3 (13:19→21:23)
[2024-06-14] MEDS: Pantoprazole Sodium 40 MG/10 ML VIAL IVPUSH ×2 (13:27→18:03)
[2024-06-14 14:03] LABS: Hematocrit 22.4 % (37.0-47.0); Hemoglobin 7.7 g/dl (12.0-16.0)
[2024-06-14] MEDS: Midodrine HCl 5 MG TABLET PO ×2 (16:00→21:23)
--- NOTE | 2024-06-14 16:41 | P.PNIM_ITS ---
Subjective Subjective Date of Service: 06/15/24 Interval History: f/u on hepatic encephalopathy Patient confused, somnolent overnight due to hepatic encephalopathy she was started on lactulose rectally as she was unable to take by mouth additionally, her left arm was very swollen and and US showed fluid collection by the morning ammonia level has gone down yet the patient remained very confused, agitated not able to take anything by mouth. Additionally, blood count was down with An NGT was inserted and given lactulose, stared on IV PPI and octreotide for suspected GIB. Over the course of the day, she has become more and more lucid, presently fully awake, alert and oriented and restraints have been discontinued. Physical Exam 2 Vital Signs: Vital Signs: Last Vital Signs Temp 98.2 F 06/14/24 15:53 Pulse 79 06/14/24 15:53 Resp 20 06/14/24 15:53 BP 134/63 06/14/24 15:53 Pulse Ox 96 06/14/24 15:53 O2 Del Method Room Air 06/14/24 15:53 BMI result Body Mass Index 27.2 Const: Other: General: she is now awake, alert and oriented x 3 HEENT--has NGT in place and clear Resp: CTA bilateral CVS: S1,S2,RRR GI: +BS, less distention, NT Skin: No rash, left arm is significantly swollen, some warmth, no discoloration, has good radial pulse, Neuro: motor grossly intact Psych: appropriate affect Objective Data Active Medications Acetaminophen (Acetaminophen 325 Mg Tablet) 650 mg PO Q6H PRN PRN Reason: Pain, Mild (Pain Scale 1-3), fever or headache Last Admin: 06/12/24 21:22 Dose: 650 mg Documented By: KIM Albuterol Sulfate (Albuterol Sulfate 90 Mcg 8 Gm Inhaler) 2 puff INHALE RQID PRN PRN Reason: for wheezing Aspirin (Aspirin Enteric Coated 81 Mg Tablet.) 81 mg PO DAILY [facility] Last Admin: 06/14/24 13:26 Dose: Not Given Documented By: CLAUDIA Non-Admin Reason: Patient Refused Calcium Carbonate (Calcium Carbonate 750 Mg Tab.Chew) 750 mg PO Q4H PRN PRN Reason: Heartburn Fluoxetine HCl (Fluoxetine Hcl 20 Mg Capsule) 40 mg PO DAILY [facility] Last Admin: 06/14/24 13:34 Dose: Not Given Documented By: CLAUDIA Non-Admin Reason: Patient Refused Fluticasone/Umeclidinium/Vilanterol (Fluticasone/Umeclidinium/Vilanterol 200/62.5/25 Blst.W.Dev) 1 puff INHALE RDAILY [facility] Last Admin: 06/14/24 12:04 Dose: Not Given Documented By: ERICH Non-Admin Reason: Agitation Gabapentin (Gabapentin 300 Mg Capsule) 300 mg PO BID [facility] Last Admin: 06/14/24 13:34 Dose: Not Given Documented By: CLAUDIA Non-Admin Reason: Patient Refused Ceftriaxone Sodium 1 gm/ (Sodium Chloride) 50 mls @ 100 mls/hr IV Q24H [facility] Last Infusion: 06/14/24 13:44 Dose: Infused Documented By: CLAUDIA Octreotide Acetate 500 mcg/ (Sodium Chloride) 501 mls @ 25.05 mls/hr IVCONT .Q20H [facility] Last Admin: 06/14/24 12:20 Dose: 25 mcg/hr, 25.05 mls/hr Documented By: CLAUDIA Lactated Ringer's (Lr) 1,000 mls @ 100 mls/hr IVCONT .Q10H [facility] Lactulose (Lactulose 20 Gm/30 Ml Solution) 30 gm PO TID [facility] Last Admin: 06/14/24 13:25 Dose: 30 gm Documented By: CLAUDIA Magnesium Hydroxide (Milk Of Magnesia 30 Ml Oral.Susp) 30 ml PO DAILY PRN PRN Reason: Constipation Melatonin (Melatonin 3 Mg Tablet) 6 mg PO BEDTIME PRN PRN Reason: Insomnia Metoprolol Succinate (Metoprolol Succinate Er 25 Mg Tab.Er.24h) 25 mg PO DAILY [facility]; Protocol Last Admin: 06/14/24 13:37 Dose: Not Given Documented By: CLAUDIA Non-Admin Reason: Patient Refused Midodrine (Midodrine Hcl 5 Mg Tablet) 5 mg PO TID [facility] Last Admin: 06/14/24 13:35 Dose: Not Given Documented By: CLAUDIA Non-Admin Reason: Patient Refused Multivitamins/Vitamin C (Multivitamin Tablet) 1 tab PO DAILY [facility] Last Admin: 06/14/24 13:27 Dose: Not Given Documented By: CLAUDIA Non-Admin Reason: Patient Refused Omeprazole (Omeprazole 20 Mg Capsule.) 20 mg PO DAILY@0630 [facility] Last Admin: 06/14/24 05:43 Dose: Not Given Documented By: TROY Non-Admin Reason: pt drowsy Ondansetron HCl (Ondansetron Hcl 4 Mg/2 Ml Vial) 4 mg IVPUSH Q8H PRN PRN Reason: Nausea and Vomiting Last Admin: 06/13/24 17:22 Dose: 4 mg Documented By: TEVIN Pantoprazole Sodium (Pantoprazole Sodium 40 Mg/10 Ml Vial) 40 mg IVPUSH BID@0630,1630 [facility] Last Admin: 06/14/24 13:27 Dose: 40 mg Documented By: CLAUDIA Rifaximin (Rifaximin 550 Mg Tablet) 550 mg PO BID [facility] Sodium Chloride (0.9 % Sodium Chloride Flush 3 Ml Syringe) 3 ml IVFLUSH QSHIFT [facility] Last Admin: 06/14/24 13:26 Dose: Not Given Documented By: CLAUDIA Non-Admin Reason: IV Running Vitamin D (Cholecalciferol (Vitamin D3) 25 Mcg Tablet) 50 mcg PO DAILY [facility] Last Admin: 06/14/24 13:27 Dose: Not Given Documented By: CLAUDIA Non-Admin Reason: Patient Refused Labs 06/15/24 08:05 06/15/24 05:55 Labs: Laboratory Results - last 24 hr 06/11/24 06/13/24 06/13/24 23:16 19:33 20:31 MCV MCH MCHC RDW Plt Count MPV Absolute Nucleated RBC Nucleated RBC % (auto) O2 Saturation ABG pH at Pt Temp ABG pH (Temp Correct) ABG pCO2 at Pt Temp ABG pO2 at Pt Temp ABG HCO3 ABG Base Excess (Actual) Anion Gap Estim Creat Clear Calc Estimated GFR POC Glucose 124 H Random Glucose Calcium Ammonia 199 H Peritoneal Tot Protein 1.3 Peritoneal Albumin 0.7 Peritoneal LDH 63 Peritoneal Glucose 130 Blood Type Antibody Screen 06/14/24 06/14/24 06/14/24 09:02 13:05 13:51 MCV 109.3 H MCH 37.1 H MCHC 33.9 RDW 15.9 Plt Count 148 L MPV 10.6 Absolute Nucleated RBC 0.000 Nucleated RBC % (auto) 0.0 O2 Saturation TNP ABG pH at Pt Temp 7.52 H ABG pH (Temp Correct) TNP ABG pCO2 at Pt Temp 28 L ABG pO2 at Pt Temp 92 ABG HCO3 23 ABG Base Excess (Actual) 1.0 Anion Gap 14 Estim Creat Clear Calc 37.1 Estimated GFR 35 POC Glucose Random Glucose 104 Calcium 9.2 Ammonia 73 H Peritoneal Tot Protein Peritoneal Albumin Peritoneal LDH Peritoneal Glucose Blood Type O Positive Antibody Screen NEGATIVE Microbiology Microbiology Results: Microbiology 06/11/24 23:16 Gram Stain - Final Abdominal Fluid Anaerobic Culture - Preliminary No growth to date. Body Fluid Culture - Final No growth after 2 days Assessment and Plan (1) SANDRA (acute kidney injury): Status: Resolved Plan 74/F PMH etoh dependence in remission, etoh cirrhosis, copd, hfref, htn, breast ca, mood disorder, Hepatic encephalopathy--improving -continue Lactulose via NGT until able to take by mouth -added Rifaximin -monitor ammonia level anemia,+NG lavage, now, doesn't appear to be variceal, H/H is down yet stable on repeat -avoid heparin -IV PPI, octreotide. GI evaluated. NPO after midnight for possible EGD -monitor H/H, transfuse with hemoglbin < 7 cirrhosis of the liver Ascietes -Paracentesis done 06/13 with removal of 3L -resume lasix and aldactone when renal function improves -continue mododrine -give Albumin -check INR -if worsening may need to be transfer to liver a liver center -empiric Abx, cultures, lactic acid CKD3B, SANDRA, Creatine trending down, watch for HRS -IVF -Neprhology following -cvontinue Midodrine as above COPD--no exacerbation -Inhalers PRN Left arm swelling, she denies falling on to that side..the appearance is that of hematoma, has good pulse coloration, no cold, may have been precipitated by IV insertion, no evidence of compartmental syndrome, yet will check CT of the arm, check CPK and vascular consult chronic HFeEF -continue metoprolol -hold Lasix until renal function improves Mood disorder -SSRI Abnormal MRI with concern for pancreatitic mass -study degraded by motion -CT w/o contrast--> mass not seen, noted prior liver lesion -repeat study on outpatient basis DVT prophylaxis--heparin Full code need for inpatient: for above, not able to manage in acute setting Quality Stroke Does the patient have a stroke diagnosis?: No VTE Prior VTE?: No VTE Risk Level:: Medical - moderate - high VTE Device Contraindication: Treatment Not Indicated VTE Drug Contraindication: N/A - Med Ordered
[2024-06-14] MEDS: 0.9 % Sodium Chloride Flush 3 ML SYRINGE IVFLUSH (18:03)
[2024-06-14] MEDS: rifAXIMin 550 MG TABLET PO (18:06)
[2024-06-14 18:37] LABS: Hemoglobin 7.6 g/dl (12.0-16.0)
[2024-06-14 18:39] LABS: Ammonia 77 umol/L (13-55)
[2024-06-14 18:43] LABS: Lactic Acid 1.8 mmol/L (0.5-2.0)
[2024-06-14 18:48] LABS: INTERNATIONAL NORM RATIO 1.7 (0.9-1.1); Prothrombin Time 21.2 SEC (11.1-13.3)
[2024-06-14 19:26] LABS: Alanine Aminotransferase 18 U/L (0-31); Albumin Level 2.8 g/dL (3.5-5.0); Alkaline Phosphatase 69 U/L (39-117); Aspartate Amino Transferase 43 U/L (5-31); Bilirubin Direct 2.3 mg/dL (0.0-0.5); Total Protein 5.8 g/dL (6.5-8.0)
[2024-06-14] MEDS: Albumin Human 25 % 100 ML IV (20:34)
[2024-06-14] MEDS: Phytonadione (Vit K1) Oral 10 MG/ML AMPUL PO (21:23)
[2024-06-14] MEDS: Gabapentin 300 MG CAPSULE PO (21:23)
--- NOTE | 2024-06-14 22:51 | MHC.PIE ---
p; pt family in room reports they are leaving and requesting soft restraint to be placed back on pt for pt will take iv, ngt, cuellar out. note; pt is confused, refusing to take meds or anything po and has been trying to take ngt out numerous times. i; dr veliz notified e; vs taken, soft restraint on, nursing supervisor vendor quality notified. will cont to monitor.
[2024-06-15] VITALS (7 sets, daily range): BP systolic 115–170; BP diastolic 58–74; PULSE 69–82; RESP 16–20; TEMP 35.9–36.6; O2SAT 95–97
[2024-06-15] MEDS: Lactated Ringers 1,000 ML 100 ML IVCONT (03:12)
[2024-06-15] MEDS: Pantoprazole Sodium 40 MG/10 ML VIAL IVPUSH ×2 (06:09→15:31)
[2024-06-15] MEDS: Omeprazole 20 MG CAPSULE.DR PO (06:10)
[2024-06-15 07:05] LABS: Anion Gap 15 (12-20); Blood Urea Nitrogen 24 mg/dL (9-16); Calcium 9.3 mg/dL (8.4-10.2); Carbon Dioxide 21 mmol/L (22-29); Chloride 108 mmol/L (96-108); Creatinine Clr Calc Pharmacy 35.2; Estimated Glomerular Filt Rate 33; Glucose Random 120 mg/dL (60-115); Potassium 4.5 mmol/L (3.3-5.1); Sodium 139 mmol/L (135-145)
[2024-06-15] MEDS: FLUoxetine HCl 20 MG CAPSULE 40 MG PO (07:34)
[2024-06-15] MEDS: rifAXIMin 550 MG TABLET PO ×2 (07:34→21:25)
[2024-06-15] MEDS: Cholecalciferol (Vitamin D3) 25 MCG TABLET 50 MCG PO (07:34)
[2024-06-15] MEDS: Metoprolol Succinate ER 25 MG TAB.ER.24H PO (07:34)
[2024-06-15] MEDS: Gabapentin 300 MG CAPSULE PO ×2 (07:35→21:25)
[2024-06-15] MEDS: Multivitamin TABLET 1 TAB PO (07:35)
[2024-06-15] MEDS: Lactulose 20 GM/30 ML SOLUTION 30 GM PO (07:35)
[2024-06-15] MEDS: Midodrine HCl 5 MG TABLET PO ×2 (07:35→21:25)
[2024-06-15 08:13] LABS: Hematocrit 22.4 % (37.0-47.0); Hemoglobin 7.2 g/dl (12.0-16.0); Mean Corpuscular HGB Conc 32.1 g/dl (31.0-35.0); Mean Corpuscular Hemoglobin 36.5 pg (27.0-33.0); Mean Platelet Volume 10.3 fL (9.4-12.3); Platelet Count 139 X10*3/uL (160-400); Red Blood Count 1.97 X10*6/uL (4.20-5.50); Red Cell Distribution Width 16.4 % (11.0-16.0); White Blood Count 9.8 X10*3/uL (4.8-10.8)
[2024-06-15 08:14] LABS: Mean Corpuscular Volume 113.7 fL (80.0-98.0)
[2024-06-15 08:18] LABS: Ammonia 56 umol/L (13-55)
[2024-06-15 08:23] LABS: INTERNATIONAL NORM RATIO 1.8 (0.9-1.1); Prothrombin Time 21.9 SEC (11.1-13.3)
[2024-06-15] MEDS: Octreotide Acetate 500 MCG in 0.9 % Sodium Chloride 500 ML 25.05 MCG IVCONT (08:28)
[2024-06-15] MEDS: Fluticasone/Umeclidinium/Vilanterol 200/62.5/25 BLST.W.DEV 1 PUFF INHALE (08:29)
[2024-06-15] MEDS: cefTRIAXone sodium 1 GM in 0.9 % Sodium Chloride 50 ML IV (09:09)
--- NOTE | 2024-06-15 09:34 | PM.CNGS ---
History of Present Illness Consult details Consult date: 06/15/24 Reason for consult: other (Arm hematoma) Narrative: 74-year-old female with a history of alcohol abuse cirrhosis with ascites was brought into the hospital after a fall and increased confusion. Upon workup and subsequent treatment. Upon examination she was continued to be very confused. She was not aware of her left upper extremity hematoma. She now presents for vascular follow-up. Review of Systems Review of Systems: Yes all other systems are reviewed and are negative Constitutional: Constitutional: Reports no additional constitutional complaints ENT: Reports Normal hearing present Cardiovascular: Cardiovascular: Denies chest pain, Denies chest pain at rest, Denies chest pain with activity and Denies pedal edema Respiratory: Respiratory: Denies cough Gastrointestinal: Gastrointestinal: Denies abdominal pain Musculoskeletal: Musculoskeletal: Denies abnormal gait, Denies muscle cramps and Denies radiating pain into limb Integumentary/Breasts: Skin/Breast: Denies skin ulcer and Denies wounds Neurologic: Reports Normal hearing present and Denies abnormal gait Psychiatric: Psychiatric: Reports no additional psychiatric complaints PMFSH Past Medical History Medical History Neuropathy Hx of screening mammography Vitamin B12 deficiency Vitamin D deficiency Annual physical exam Breast CA (~03/01/23) Flank pain, chronic Hx of abdominal pain Excessive drinking of alcohol COPD (chronic obstructive pulmonary disease) Pulmonary nodules Atrial arrhythmia NICM (nonischemic cardiomyopathy) Cardiac LV ejection fraction of 40-49% Osteoarthritis Colonoscopy refused Muscle spasm History of breast cancer in female Chronic GERD Anxiety, generalized Family History Family History Father Non-Hodgkin lymphoma Mother CVD (cardiovascular disease) Brother Lung disease Sister No problems noted. Maternal Grandfather Colon cancer Maternal Grandmother CVD (cardiovascular disease) Paternal Grandfather Unknown family medical history Paternal Grandmother Unknown family medical history Brother No problems noted. Son No problems noted. Son No problems noted. Daughter No problems noted. Other Mental health disorder Substance use disorder Surgical History Surgical History History of esophagogastroduodenoscopy (EGD) H/O colonoscopy History of removal of Port-a-Cath History of hysterectomy History of section H/O right mastectomy Social History Social History Household Members: Unknown / Unable to assess Housing: Unknown / Unable to assess Alcohol intake: former Year quit: 2022 Comment: 1;1 Patient Tobacco Use Status: Former Tobacco user Tobacco use type: Cigarette Years Smoked: 10 e-Cigarette/Vaping Use: Never Used Second Hand Smoke Exposure: No Advance Directives Date on File: 04/04/24 service: No 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 needs: No Hearing needs: No Vision needs: Yes (wears glasses ) Meds Allergies Allergy/AdvReac Type Severity Reaction Status Date / Time hydromorphone [From DILAUDID] Allergy Intermediate hives, Verified 06/11/24 16:46 itching losartan Allergy Intermediate Angioedema Verified 06/11/24 16:46 tramadol [From ULTRAM] Allergy Intermediate hives,itchi Verified 06/11/24 16:46 ng Active Medications: Current Medications Acetaminophen (Acetaminophen 325 Mg Tablet) 650 mg PO Q6H PRN PRN Reason: Pain, Mild (Pain Scale 1-3), fever or headache Last Admin: 06/12/24 21:22 Dose: 650 mg Albuterol Sulfate (Albuterol Sulfate 90 Mcg 8 Gm Inhaler) 2 puff INHALE RQID PRN PRN Reason: for wheezing Calcium Carbonate (Calcium Carbonate 750 Mg Tab.Chew) 750 mg PO Q4H PRN PRN Reason: Heartburn Fluoxetine HCl (Fluoxetine Hcl 20 Mg Capsule) 40 mg PO DAILY [facility] Last Admin: 06/15/24 07:34 Dose: 40 mg Fluticasone/Umeclidinium/Vilanterol (Fluticasone/Umeclidinium/Vilanterol 200/62.5/25 Blst.W.Dev) 1 puff INHALE RDAILY [facility] Last Admin: 06/15/24 08:29 Dose: 1 puff Gabapentin (Gabapentin 300 Mg Capsule) 300 mg PO BID [facility] Last Admin: 06/15/24 07:35 Dose: 300 mg Ceftriaxone Sodium 1 gm/ (Sodium Chloride) 50 mls @ 100 mls/hr IV Q24H [facility] Last Admin: 06/15/24 09:09 Dose: 100 mls/hr Octreotide Acetate 500 mcg/ (Sodium Chloride) 501 mls @ 25.05 mls/hr IVCONT .Q20H [facility] Last Admin: 06/15/24 08:28 Dose: 25 mcg/hr, 25.05 mls/hr Lactated Ringer's (Lr) 1,000 mls @ 100 mls/hr IVCONT .Q10H [facility] Last Infusion: 06/15/24 09:06 Dose: 0 mls/hr Lactulose (Lactulose 20 Gm/30 Ml Solution) 30 gm PO TID [facility] Last Admin: 06/15/24 07:35 Dose: 30 gm Magnesium Hydroxide (Milk Of Magnesia 30 Ml Oral.Susp) 30 ml PO DAILY PRN PRN Reason: Constipation Melatonin (Melatonin 3 Mg Tablet) 6 mg PO BEDTIME PRN PRN Reason: Insomnia Metoprolol Succinate (Metoprolol Succinate Er 25 Mg Tab.Er.24h) 25 mg PO DAILY [facility]; Protocol Last Admin: 06/15/24 07:34 Dose: 25 mg Midodrine (Midodrine Hcl 5 Mg Tablet) 5 mg PO TID [facility] Last Admin: 06/15/24 07:35 Dose: 5 mg Multivitamins/Vitamin C (Multivitamin Tablet) 1 tab PO DAILY [facility] Last Admin: 06/15/24 07:35 Dose: 1 tab Omeprazole (Omeprazole 20 Mg Capsule.Dr) 20 mg PO DAILY@0630 [facility] Last Admin: 06/15/24 06:10 Dose: 20 mg Ondansetron HCl (Ondansetron Hcl 4 Mg/2 Ml Vial) 4 mg IVPUSH Q8H PRN PRN Reason: Nausea and Vomiting Last Admin: 06/13/24 17:22 Dose: 4 mg Pantoprazole Sodium (Pantoprazole Sodium 40 Mg/10 Ml Vial) 40 mg IVPUSH BID@0630,1630 [facility] Last Admin: 06/15/24 06:09 Dose: 40 mg Rifaximin (Rifaximin 550 Mg Tablet) 550 mg PO BID [facility] Last Admin: 06/15/24 07:34 Dose: 550 mg Sodium Chloride (0.9 % Sodium Chloride Flush 3 Ml Syringe) 3 ml IVFLUSH QSHIFT [facility] Last Admin: 06/15/24 07:35 Dose: Not Given Vitamin D (Cholecalciferol (Vitamin D3) 25 Mcg Tablet) 50 mcg PO DAILY [facility] Last Admin: 06/15/24 07:34 Dose: 50 mcg Home Medications ?Medication ?Instructions ?Recorded ?Confirmed ?Last Taken ?Type aspirin 81 mg tablet,delayed 81 mg PO DAILY 12/18/20 06/12/24 06/10/24 History release cholecalciferol (vitamin D3) 50 50 mcg PO DAILY 12/18/20 06/12/24 06/10/24 History mcg (2,000 unit) capsule omeprazole 20 mg capsule,delayed 20 mg PO DAILY@0630 07/15/23 06/12/24 06/10/24 History release acetaminophen 500 mg tablet 500 mg PO BID PRN Pain 03/31/24 06/12/24 Unknown History vitamin B complex 1 tab PO DAILY 03/31/24 06/12/24 06/10/24 History albuterol sulfate 90 mcg/actuation 2 puff inhalation QID PRN for 06/12/24 06/12/24 Unknown History aerosol inhaler wheezing spironolactone 50 mg tablet 100 mg PO DAILY 06/12/24 06/12/24 06/10/24 History Physical Exam Vital Signs: Vital Signs: Last Vital Signs Temp 98 F 06/15/24 06:54 Pulse 82 06/15/24 08:30 Resp 16 06/15/24 08:30 BP 115/58 L 06/15/24 06:54 Pulse Ox 97 06/15/24 06:54 O2 Del Method Room Air 06/15/24 06:54 BMI result Body Mass Index 27.2 Const: General: cooperative, healthy appearing and comfortable Orientation/consciousness: oriented to person, oriented to place and oriented to time HEENT: Head: Yes normal to inspection Neck: Neck: Yes normal visual inspection Carotids: no bruits Chest: Chest palpation & inspection: normal inspection of the chest Resp: Effort & Inspection: normal respiratory effort and able to speak in complete sentences Auscultation: clear to auscultation bilaterally, no crackles, no rales, no rhonchi and no wheezes Cardio: Rate: regular rate Rhythm: regular rhythm Heart sounds: S1 normal heart sound present and S2 normal heart sound present Bruits: no carotid bruits Peripheral pulses: Peripheral pulses 2+ throughout GI: Inspection: Yes normal to inspection Skin: Wounds: no wounds Hair: normal Neuro: General: oriented to person, oriented to place and oriented to time Cranial nerves: Yes CN's II-XII intact bilaterally and Yes Normal hearing present Cognition (Neuro): normal cognition Motor exam (neuro): 5/5 motor strength present throughout Extrem: Other: Left upper extremity forearm hematoma. Compartments feel soft. Good motor and sensation. Palpable brachial radial ulnar pulses. General: No clubbing, No cyanosis and No edema Psych: Appearance: grossly normal Mental Status: mental status grossly normal Speech and movement: Normal speech and movement present Results Labs 06/15/24 08:05 06/15/24 05:55 Labs: Abnormal lab results 06/14/24 06/14/24 06/14/24 Range/Units 09:02 13:05 13:51 RBC (4.20-5.50) X10*6/uL Hgb 7.7 L (12.0-16.0) g/dl Hct 22.4 L (37.0-47.0) % MCV (80.0-98.0) fL MCH (27.0-33.0) pg RDW (11.0-16.0) % Plt Count (160-400) X10*3/uL PT (11.1-13.3) SEC INR (0.9-1.1) ABG pH at Pt Temp 7.52 H (7.35-7.45) ABG pCO2 at Pt Temp 28 L (32-45) mmHg Carbon Dioxide (22-29) mmol/L BUN (9-16) mg/dL Creatinine (0.5-1.4) mg/dL Random Glucose (60-115) mg/dL Total Bilirubin 6.0 H (0.0-1.0) mg/dL Direct Bilirubin 2.3 H (0.0-0.5) mg/dL AST 43 H (5-31) U/L Ammonia (13-55) umol/L Total Protein 5.8 L (6.5-8.0) g/dL Albumin 2.8 L (3.5-5.0) g/dL 06/14/24 06/14/24 06/15/24 Range/Units 18:11 18:12 05:55 RBC (4.20-5.50) X10*6/uL Hgb 7.6 L (12.0-16.0) g/dl Hct 23.0 L (37.0-47.0) % MCV (80.0-98.0) fL MCH (27.0-33.0) pg RDW (11.0-16.0) % Plt Count (160-400) X10*3/uL PT 21.2 H (11.1-13.3) SEC INR 1.7 H (0.9-1.1) ABG pH at Pt Temp (7.35-7.45) ABG pCO2 at Pt Temp (32-45) mmHg Carbon Dioxide 21 L (22-29) mmol/L BUN 24 H (9-16) mg/dL Creatinine 1.56 H (0.5-1.4) mg/dL Random Glucose 120 H (60-115) mg/dL Total Bilirubin (0.0-1.0) mg/dL Direct Bilirubin (0.0-0.5) mg/dL AST (5-31) U/L Ammonia 77 H (13-55) umol/L Total Protein (6.5-8.0) g/dL Albumin (3.5-5.0) g/dL 06/15/ Range/Units 08:05 RBC 1.97 L (4.20-5.50) X10*6/uL Hgb 7.2 L (12.0-16.0) g/dl Hct 22.4 L (37.0-47.0) % MCV 113.7 H (80.0-98.0) fL MCH 36.5 H (27.0-33.0) pg RDW 16.4 H (11.0-16.0) % Plt Count 139 L (160-400) X10*3/uL PT 21.9 H (11.1-13.3) SEC INR 1.8 H (0.9-1.1) ABG pH at Pt Temp (7.35-7.45) ABG pCO2 at Pt Temp (32-45) mmHg Carbon Dioxide (22-29) mmol/L BUN (9-16) mg/dL Creatinine (0.5-1.4) mg/dL Random Glucose (60-115) mg/dL Total Bilirubin (0.0-1.0) mg/dL Direct Bilirubin (0.0-0.5) mg/dL AST (5-31) U/L Ammonia 56 H (13-55) umol/L Total Protein (6.5-8.0) g/dL Albumin (3.5-5.0) g/dL Short CBC 06/14/24 06/14/24 06/15/24 Range/Units 13:51 18:12 08:05 WBC 9.8 (4.8-10.8) X10*3/uL Hgb 7.7 L 7.6 L 7.2 L (12.0-16.0) g/dl Hct 22.4 L 23.0 L 22.4 L (37.0-47.0) % Plt Count 139 L (160-400) X10*3/uL BMP 06/15/24 05:55 Sodium 139 Potassium 4.5 Chloride 108 Carbon Dioxide 21 L BUN 24 H Creatinine 1.56 H Calcium 9.3 Cardiac Enzymes 06/14/24 Range/Units 18:12 Total Creatine Kinase 112 (26-140) U/L Liver Function 06/14/24 Range/Units 09:02 Total Bilirubin 6.0 H (0.0-1.0) mg/dL Direct Bilirubin 2.3 H (0.0-0.5) mg/dL AST 43 H (5-31) U/L ALT 18 (0-31) U/L Alkaline Phosphatase 69 (39-117) U/L Albumin 2.8 L (3.5-5.0) g/dL Urine 06/12/24 Range/Units 01:57 Urine Color Dark Yellow Urine Appearance Clear Urine pH 5.0 (5.0-9.0) Ur Specific [place] 1.010 (1.005-1.025) Urine Protein Negative (Neg-Trace) mg/dL Urine Glucose (UA) Negative (Negative) mg/dL All other labs normal. Imaging Additional studies: Arm ultrasound was negative for DVT Assessment and Plan (1) Hematoma of left upper extremity: Status: Acute Plan In short patient has a left arm hematoma. It appears to be stable. There is no evidence of compartment syndrome and ultrasound is negative for DVT. Would recommend continued conservative measures including arm elevation. No blood pressure IVs or blood draws in the left upper extremity. Thank you for allowing us to assist in her care Procedures Date of Service Date of Service: 06/15/24
--- NOTE | 2024-06-15 09:46 | HO.PM.IMPN ---
Subjective Subjective Date of Service: 06/15/24 Interval History: f/u on hepatic encephalopathy, sandra, anemia, left arm swelling interval history: She is doing better, encephalopathy much improved, no longer agitated, oriented x3 H/h remains stable, creatine stable. Physical Exam Vital Signs: Vital Signs: Last Vital Signs Temp 98 F 06/15/24 06:54 Pulse 82 06/15/24 08:30 Resp 16 06/15/24 08:30 BP 115/58 L 06/15/24 06:54 Pulse Ox 97 06/15/24 06:54 O2 Del Method Room Air 06/15/24 06:54 BMI result Body Mass Index 27.2 Objective Data Active Medications Acetaminophen (Acetaminophen 325 Mg Tablet) 650 mg PO Q6H PRN PRN Reason: Pain, Mild (Pain Scale 1-3), fever or headache Last Admin: 06/12/24 21:22 Dose: 650 mg Documented By: KIM Albuterol Sulfate (Albuterol Sulfate 90 Mcg 8 Gm Inhaler) 2 puff INHALE RQID PRN PRN Reason: for wheezing Calcium Carbonate (Calcium Carbonate 750 Mg Tab.Chew) 750 mg PO Q4H PRN PRN Reason: Heartburn Fluoxetine HCl (Fluoxetine Hcl 20 Mg Capsule) 40 mg PO DAILY [facility] Last Admin: 06/15/24 07:34 Dose: 40 mg Documented By: SAMEER Fluticasone/Umeclidinium/Vilanterol (Fluticasone/Umeclidinium/Vilanterol 200/62.5/25 Blst.W.Dev) 1 puff INHALE RDAILY [facility] Last Admin: 06/15/24 08:29 Dose: 1 puff Documented By: NANNETTE Gabapentin (Gabapentin 300 Mg Capsule) 300 mg PO BID [facility] Last Admin: 06/15/24 07:35 Dose: 300 mg Documented By: SAMEER Ceftriaxone Sodium 1 gm/ (Sodium Chloride) 50 mls @ 100 mls/hr IV Q24H [facility] Last Admin: 06/15/24 09:09 Dose: 100 mls/hr Documented By: SAMEER Octreotide Acetate 500 mcg/ (Sodium Chloride) 501 mls @ 25.05 mls/hr IVCONT .Q20H [facility] Last Admin: 06/15/24 08:28 Dose: 25 mcg/hr, 25.05 mls/hr Documented By: SAMEER Lactated Ringer's (Lr) 1,000 mls @ 100 mls/hr IVCONT .Q10H [facility] Last Infusion: 06/15/24 09:06 Dose: 0 mls/hr Documented By: SAMEER Lactulose (Lactulose 20 Gm/30 Ml Solution) 30 gm PO TID [facility] Last Admin: 06/15/24 07:35 Dose: 30 gm Documented By: SAMEER Magnesium Hydroxide (Milk Of Magnesia 30 Ml Oral.Susp) 30 ml PO DAILY PRN PRN Reason: Constipation Melatonin (Melatonin 3 Mg Tablet) 6 mg PO BEDTIME PRN PRN Reason: Insomnia Metoprolol Succinate (Metoprolol Succinate Er 25 Mg Tab.Er.24h) 25 mg PO DAILY [facility]; Protocol Last Admin: 06/15/24 07:34 Dose: 25 mg Documented By: SAMEER Midodrine (Midodrine Hcl 5 Mg Tablet) 5 mg PO TID [facility] Last Admin: 06/15/24 07:35 Dose: 5 mg Documented By: SAMEER Multivitamins/Vitamin C (Multivitamin Tablet) 1 tab PO DAILY [facility] Last Admin: 06/15/24 07:35 Dose: 1 tab Documented By: SAMEER Omeprazole (Omeprazole 20 Mg Capsule.Dr) 20 mg PO DAILY@0630 [facility] Last Admin: 06/15/24 06:10 Dose: 20 mg Documented By: EUGENIA Ondansetron HCl (Ondansetron Hcl 4 Mg/2 Ml Vial) 4 mg IVPUSH Q8H PRN PRN Reason: Nausea and Vomiting Last Admin: 06/13/24 17:22 Dose: 4 mg Documented By: TEVIN Pantoprazole Sodium (Pantoprazole Sodium 40 Mg/10 Ml Vial) 40 mg IVPUSH BID@0630,1630 [facility] Last Admin: 06/15/24 06:09 Dose: 40 mg Documented By: EUGENIA Rifaximin (Rifaximin 550 Mg Tablet) 550 mg PO BID [facility] Last Admin: 06/15/24 07:34 Dose: 550 mg Documented By: SAMEER Sodium Chloride (0.9 % Sodium Chloride Flush 3 Ml Syringe) 3 ml IVFLUSH QSHIFT [facility] Last Admin: 06/15/24 07:35 Dose: Not Given Documented By: SAMEER Non-Admin Reason: IV Running Vitamin D (Cholecalciferol (Vitamin D3) 25 Mcg Tablet) 50 mcg PO DAILY [facility] Last Admin: 06/15/24 07:34 Dose: 50 mcg Documented By: SAMEER Labs 06/15/24 08:05 06/15/24 05:55 Labs: Laboratory Results - last 24 hr 06/14/24 06/14/24 06/14/24 09:02 13:05 13:51 MCV MCH MCHC RDW Plt Count MPV Absolute Nucleated RBC Nucleated RBC % (auto) PT INR O2 Saturation TNP ABG pH at Pt Temp 7.52 H ABG pH (Temp Correct) TNP ABG pCO2 at Pt Temp 28 L ABG pO2 at Pt Temp 92 ABG HCO3 23 ABG Base Excess (Actual) 1.0 Anion Gap Estim Creat Clear Calc Estimated GFR Random Glucose Lactic Acid Calcium Total Bilirubin 6.0 H Direct Bilirubin 2.3 H AST 43 H ALT 18 Alkaline Phosphatase 69 Ammonia Total Creatine Kinase Total Protein 5.8 L Albumin 2.8 L Blood Type O Positive Antibody Screen NEGATIVE 06/14/24 06/14/24 06/15/24 18:11 18:12 05:55 MCV MCH MCHC RDW Plt Count MPV Absolute Nucleated RBC Nucleated RBC % (auto) PT 21.2 H INR 1.7 H O2 Saturation ABG pH at Pt Temp ABG pH (Temp Correct) ABG pCO2 at Pt Temp ABG pO2 at Pt Temp ABG HCO3 ABG Base Excess (Actual) Anion Gap 15 Estim Creat Clear Calc 35.2 Estimated GFR 33 Random Glucose 120 H Lactic Acid 1.8 Calcium 9.3 Total Bilirubin Direct Bilirubin AST ALT Alkaline Phosphatase Ammonia 77 H Total Creatine Kinase 112 Total Protein Albumin Blood Type Antibody Screen 06/15/24 08:05 MCV 113.7 H MCH 36.5 H MCHC 32.1 RDW 16.4 H Plt Count 139 L MPV 10.3 Absolute Nucleated RBC 0.000 Nucleated RBC % (auto) 0.0 PT 21.9 H INR 1.8 H O2 Saturation ABG pH at Pt Temp ABG pH (Temp Correct) ABG pCO2 at Pt Temp ABG pO2 at Pt Temp ABG HCO3 ABG Base Excess (Actual) Anion Gap Estim Creat Clear Calc Estimated GFR Random Glucose Lactic Acid Calcium Total Bilirubin Direct Bilirubin AST ALT Alkaline Phosphatase Ammonia 56 H Total Creatine Kinase Total Protein Albumin Blood Type Antibody Screen Microbiology Microbiology Results: Microbiology 06/11/24 23:16 Gram Stain - Final Abdominal Fluid Anaerobic Culture - Preliminary No growth to date. Body Fluid Culture - Final No growth after 2 days Assessment and Plan (1) SANDRA (acute kidney injury): Status: Resolved Plan 74/F PMH etoh dependence in remission, etoh cirrhosis, copd, hfref, htn, breast ca, mood disorder, Hepatic encephalopathy--much lucid today -continue Lactulose by mouth or NGT -continue Rifaximin -monitor ammonia level, 56 today anemia,+NG lavage, now, doesn't appear to be variceal, H/H is overall down but stable, over the last 24 hrs -avoid heparin, ASA -IV PPI, octreotide . GI evaluated. -monitor H/H, 05/14, transfuse 1 unit thrombocytopenia--chronic d/t liver disease, stable decompensated cirrhosis of the liver with ascietes -Paracentesis done 06/13 with removal of 3L -resume lasix and aldactone when renal function improves -continue midodrine -given Albumin -if worsening may need to be transfer to liver a liver center -empiric Abx (ceftriaxone), cultures, lactic acid CKD3B, SANDRA, Creatine stable the last 24 hrs, and closer to baseline -Neprhology following -cvontinue Midodrine as above COPD--no exacerbation -Inhalers PRN Left arm swelling, she denies falling on to that side..the appearance is that of hematoma, has good pulse coloration, no cold, may have been precipitated by IV insertion, no evidence of compartmental syndrome, CT of the arm, check CPK and vascular consult chronic HFeEF -continue metoprolol -hold Lasix until renal function improves Mood disorder -SSRI Abnormal MRI with concern for pancreatitic mass -study degraded by motion -CT w/o contrast--> mass not seen, noted prior liver lesion -repeat study on outpatient basis DVT prophylaxis--heparin Full code need for inpatient: for above, not able to manage in acute setting Quality Stroke Does the patient have a stroke diagnosis?: No VTE Prior VTE?: No VTE Risk Level:: Medical - moderate - high VTE Device Contraindication: Treatment Not Indicated VTE Drug Contraindication: N/A - Med Ordered
[2024-06-15 10:24] LABS: Alanine Aminotransferase 18 U/L (0-31); Alkaline Phosphatase 67 U/L (39-117); Aspartate Amino Transferase 43 U/L (5-31); Bilirubin Direct 2.9 mg/dL (0.0-0.5); Total Protein 5.7 g/dL (6.5-8.0)
[2024-06-15 10:28] LABS: Bilirubin Total 7.6 mg/dL (0.0-1.0)
--- NOTE | 2024-06-15 14:07 | P.PNNP_ITS ---
Subjective Subjective Date of Service: 06/15/24 Interval history: Events noted Physical Exam 2 Vital Signs: Vital Signs: Last Vital Signs Temp 96.7 F L 06/15/24 12:11 Pulse 74 06/15/24 12:11 Resp 18 06/15/24 12:11 BP 155/70 H 06/15/24 12:11 Pulse Ox 97 06/15/24 06:54 O2 Del Method Room Air 06/15/24 06:54 BMI result Body Mass Index 27.2 Neck: Neck: Yes supple Resp: Auscultation: clear to auscultation bilaterally Cardio: Palpation: no palpable S3 Heart sounds: no rubs GI: Palpation (GI): Soft to palpation Auscultation: normal bowel sounds Neuro: Motor exam (neuro): no asterixis Objective Data Labs 06/15/24 08:05 06/15/24 05:55 Labs: Laboratory Results - last 24 hr 06/14/24 06/14/24 06/14/24 09:02 13:05 13:51 WBC RBC Hgb Hct MCV MCH MCHC RDW Plt Count MPV Absolute Nucleated RBC Nucleated RBC % (auto) PT INR O2 Saturation TNP ABG pH (Temp Correct) TNP Sodium Potassium Chloride Carbon Dioxide Anion Gap BUN Creatinine Estim Creat Clear Calc Estimated GFR Random Glucose Lactic Acid Calcium Total Bilirubin 6.0 H Direct Bilirubin 2.3 H AST 43 H ALT 18 Alkaline Phosphatase 69 Ammonia Total Creatine Kinase Total Protein 5.8 L Albumin 2.8 L Blood Type O Positive Antibody Screen NEGATIVE Crossmatch See Detail 06/14/24 06/14/24 06/15/24 18:11 18:12 05:55 WBC RBC Hgb 7.6 L Hct 23.0 L MCV MCH MCHC RDW Plt Count MPV Absolute Nucleated RBC Nucleated RBC % (auto) PT 21.2 H INR 1.7 H O2 Saturation ABG pH (Temp Correct) Sodium 139 Potassium 4.5 Chloride 108 Carbon Dioxide 21 L Anion Gap 15 BUN 24 H Creatinine 1.56 H Estim Creat Clear Calc 35.2 Estimated GFR 33 Random Glucose 120 H Lactic Acid 1.8 Calcium 9.3 Total Bilirubin 7.6 H Direct Bilirubin 2.9 H AST 43 H ALT 18 Alkaline Phosphatase 67 Ammonia 77 H Total Creatine Kinase 112 Total Protein 5.7 L Albumin 3.0 L Blood Type Antibody Screen Crossmatch 06/15/24 08:05 WBC 9.8 RBC 1.97 L Hgb 7.2 L Hct 22.4 L MCV 113.7 H MCH 36.5 H MCHC 32.1 RDW 16.4 H Plt Count 139 L MPV 10.3 Absolute Nucleated RBC 0.000 Nucleated RBC % (auto) 0.0 PT 21.9 H INR 1.8 H O2 Saturation ABG pH (Temp Correct) Sodium Potassium Chloride Carbon Dioxide Anion Gap BUN Creatinine Estim Creat Clear Calc Estimated GFR Random Glucose Lactic Acid Calcium Total Bilirubin Direct Bilirubin AST ALT Alkaline Phosphatase Ammonia 56 H Total Creatine Kinase Total Protein Albumin Blood Type Antibody Screen Crossmatch Microbiology Microbiology Results: Microbiology 06/11/24 23:16 Abdominal Fluid Gram Stain - Final 06/11/24 23:16 Abdominal Fluid Anaerobic Culture - Preliminary No growth to date. 06/11/24 23:16 Abdominal Fluid Body Fluid Culture - Final No growth after 2 days Procedures Date of Service Date of Service: 06/15/24 Assessment & Plan Assessment and plan (1) SANDRA (acute kidney injury): Status: Resolved (2) CKD (chronic kidney disease) stage 3, GFR 30-59 ml/min: Status: Acute Plan 74-year-old woman with a history of cirrhosis as acute kidney injury superimposed on CKD. SANDRA due to hypoperfusion in the setting of cirrhosis. She was on Lasix and spironolactone in the setting of diarrhea which could have precipitated hypoperfusion. Creatinine is trending down Recommendation Continue to hold Lasix and spironolactone for the time being. Can discontinue IV fluid Octreotide Agree with abdominal paracentesis as needed Avoid hypotension Marginal improvement in serum creatinine. Watch urine output Continue to avoid nephrotoxic agents. No indication for dialysis. Expiratory renal recovery. Time Spent With Patient Time: Total time managing care of this patient today ____ minutes. Progress Note: Quality Stroke Does the patient have a stroke diagnosis?: No
--- NOTE | 2024-06-15 16:13 | PC.NURSE ---
Pt doing much better today, NG tube removed, pt tolerated well, possible EGD on Tuesday. Noted Swelling to RUE Bruising. A&Ox2, off date by one week. Able to communicate needs, taken meds as ordered, 4BMs today, assist with herman care, F/C draining dark yellow urine, LR d/c per MD. Tolerated 1U PRBC. Daughter at bedside and updated throughout the day.
[2024-06-15] MEDS: Phytonadione (Vit K1) Oral 10 MG/ML AMPUL PO (17:14)
[2024-06-15] MEDS: 0.9 % Sodium Chloride Flush 3 ML SYRINGE IVFLUSH (21:26)
[2024-06-16 03:22] VITALS: BP 140/64; PULSE 77; RESP 18; TEMP 36; O2SAT 98
[2024-06-16] MEDS: Octreotide Acetate 500 MCG in 0.9 % Sodium Chloride 500 ML 25.05 MCG IVCONT ×2 (04:48→22:21)
[2024-06-16] MEDS: Omeprazole 20 MG CAPSULE.DR PO (04:57)
[2024-06-16] MEDS: Pantoprazole Sodium 40 MG/10 ML VIAL IVPUSH ×2 (04:57→15:57)
[2024-06-16 06:20] LABS: INTERNATIONAL NORM RATIO 1.5 (0.9-1.1); Prothrombin Time 18.8 SEC (11.1-13.3)
[2024-06-16 06:26] LABS: Hematocrit 26.6 % (37.0-47.0); Hemoglobin 8.7 g/dl (12.0-16.0); Mean Corpuscular HGB Conc 32.7 g/dl (31.0-35.0); Mean Corpuscular Hemoglobin 35.8 pg (27.0-33.0); Mean Corpuscular Volume 109.5 fL (80.0-98.0); Mean Platelet Volume 10.8 fL (9.4-12.3); Platelet Count 149 X10*3/uL (160-400); Red Blood Count 2.43 X10*6/uL (4.20-5.50); Red Cell Distribution Width 18.2 % (11.0-16.0); White Blood Count 10.1 X10*3/uL (4.8-10.8)
[2024-06-16 06:31] LABS: Alanine Aminotransferase 20 U/L (0-31); Albumin Level 2.8 g/dL (3.5-5.0); Alkaline Phosphatase 89 U/L (39-117); Anion Gap 11 (12-20); Aspartate Amino Transferase 42 U/L (5-31); Bilirubin Direct 2.2 mg/dL (0.0-0.5); Bilirubin Total 5.4 mg/dL (0.0-1.0); Blood Urea Nitrogen 24 mg/dL (9-16); Carbon Dioxide 22 mmol/L (22-29); Chloride 108 mmol/L (96-108); Creatinine Clr Calc Pharmacy 39.8; Estimated Glomerular Filt Rate 38; Glucose Random 125 mg/dL (60-115); Potassium 4.1 mmol/L (3.3-5.1); Sodium 137 mmol/L (135-145); Total Protein 5.6 g/dL (6.5-8.0)
[2024-06-16 07:48] VITALS: BP 116/63; PULSE 71; RESP 16; TEMP 36; O2SAT 98
[2024-06-16] MEDS: Fluticasone/Umeclidinium/Vilanterol 200/62.5/25 BLST.W.DEV 1 PUFF INHALE (08:12)
[2024-06-16 08:15] VITALS: PULSE 60; RESP 16; O2SAT 96
[2024-06-16] MEDS: Gabapentin 300 MG CAPSULE PO ×2 (08:18→21:55)
[2024-06-16] MEDS: rifAXIMin 550 MG TABLET PO ×2 (08:18→21:54)
[2024-06-16] MEDS: Multivitamin TABLET 1 TAB PO (08:18)
[2024-06-16] MEDS: Metoprolol Succinate ER 25 MG TAB.ER.24H PO (08:18)
[2024-06-16] MEDS: FLUoxetine HCl 20 MG CAPSULE 40 MG PO (08:18)
[2024-06-16] MEDS: Midodrine HCl 5 MG TABLET PO ×2 (08:19→21:55)
[2024-06-16] MEDS: Lactulose 20 GM/30 ML SOLUTION 30 GM PO (08:19)
[2024-06-16] MEDS: Cholecalciferol (Vitamin D3) 25 MCG TABLET 50 MCG PO (08:19)
[2024-06-16] MEDS: Acetaminophen 325 MG TABLET 650 MG PO ×2 (08:19→22:00)
[2024-06-16] MEDS: cefTRIAXone sodium 1 GM in 0.9 % Sodium Chloride 50 ML IV (08:20)
[2024-06-16] MEDS: 0.9 % Sodium Chloride Flush 3 ML SYRINGE IVFLUSH ×3 (08:22→21:55)
--- NOTE | 2024-06-16 08:22 | MHC.CM.PN ---
CM MET WITH PT AND DAUGHTER LATE AFTERNOON ON 06/15/24 PTS DAUGHTER REPORTS THE PT SHOULD NOT RETURN HOME AT DC WITHOUT GOING TO STR FIRST SHE SAYS SHE IS UNAVAILABLE TO ASSIST HER CM EXPLAINED THE LAST PT NOTE INDICATED HOME WITH SERVICES, SO IT WOULD DEPEND ON SUBSEQUENT -PT EVALS PT WOULD NEED TO QUALIFY SHE SAYS SHE WOULD BE FINE WITH ANY SNF THAT IS CONTRACTED WITH PTS INSURANCE IF SHE DOES QUALIFY
--- NOTE | 2024-06-16 10:12 | P.PNIM_ITS ---
Subjective Subjective Date of Service: 06/16/24 Interval History: f/u on hepatic encephalopathy, sandra, anemia, left arm swelling/hematoma interval history: she continues to make progress, she is lucid, H/H is better, renal function returning to baseline, Physical Exam 2 Vital Signs: Vital Signs: Last Vital Signs Temp 96.8 F 06/16/24 07:48 Pulse 60 06/16/24 08:15 Resp 16 06/16/24 08:15 BP 116/63 06/16/24 07:48 Pulse Ox 98 06/16/24 07:48 O2 Del Method Room Air 06/16/24 07:48 BMI result Body Mass Index 27.2 General: AO X 3, no acute distress Resp: CTA bilateral CVS: S1,S2,RRR GI: +BS, NT, no distention Skin: No rash ext: the left arm is less swollen with echymosis, otherwise normal colar, not tense, able to move, +normal radial and ulnar pulses Neuro: motor grossly intact Psych: appropriate affect Objective Data Active Medications Acetaminophen (Acetaminophen 325 Mg Tablet) 650 mg PO Q6H PRN PRN Reason: Pain, Mild (Pain Scale 1-3), fever or headache Last Admin: 06/16/24 08:19 Dose: 650 mg Documented By: CARI Albuterol Sulfate (Albuterol Sulfate 90 Mcg 8 Gm Inhaler) 2 puff INHALE RQID PRN PRN Reason: for wheezing Calcium Carbonate (Calcium Carbonate 750 Mg Tab.Chew) 750 mg PO Q4H PRN PRN Reason: Heartburn Fluoxetine HCl (Fluoxetine Hcl 20 Mg Capsule) 40 mg PO DAILY [facility] Last Admin: 06/16/24 08:18 Dose: 40 mg Documented By: CARI Fluticasone/Umeclidinium/Vilanterol (Fluticasone/Umeclidinium/Vilanterol 200/62.5/25 Blst.W.Dev) 1 puff INHALE RDAILY [facility] Last Admin: 06/16/24 08:12 Dose: 1 puff Documented By: ELSY Gabapentin (Gabapentin 300 Mg Capsule) 300 mg PO BID [facility] Last Admin: 06/16/24 08:18 Dose: 300 mg Documented By: CARI Ceftriaxone Sodium 1 gm/ (Sodium Chloride) 50 mls @ 100 mls/hr IV Q24H [facility] Last Infusion: 06/16/24 08:57 Dose: Infused Documented By: CARI Octreotide Acetate 500 mcg/ (Sodium Chloride) 501 mls @ 25.05 mls/hr IVCONT .Q20H [facility] Last Admin: 06/16/24 04:48 Dose: 25 mcg/hr, 25.05 mls/hr Documented By: EUGENIA Lactulose (Lactulose 20 Gm/30 Ml Solution) 30 gm PO TID [facility] Last Admin: 06/16/24 08:19 Dose: 30 gm Documented By: CARI Magnesium Hydroxide (Milk Of Magnesia 30 Ml Oral.Susp) 30 ml PO DAILY PRN PRN Reason: Constipation Melatonin (Melatonin 3 Mg Tablet) 6 mg PO BEDTIME PRN PRN Reason: Insomnia Metoprolol Succinate (Metoprolol Succinate Er 25 Mg Tab.Er.24h) 25 mg PO DAILY [facility]; Protocol Last Admin: 06/16/24 08:18 Dose: 25 mg Documented By: CARI Midodrine (Midodrine Hcl 5 Mg Tablet) 5 mg PO TID [facility] Last Admin: 06/16/24 08:19 Dose: 5 mg Documented By: CARI Multivitamins/Vitamin C (Multivitamin Tablet) 1 tab PO DAILY [facility] Last Admin: 06/16/24 08:18 Dose: 1 tab Documented By: CARI Omeprazole (Omeprazole 20 Mg Capsule.Dr) 20 mg PO DAILY@0630 [facility] Last Admin: 06/16/24 04:57 Dose: 20 mg Documented By: EUGENIA Ondansetron HCl (Ondansetron Hcl 4 Mg/2 Ml Vial) 4 mg IVPUSH Q8H PRN PRN Reason: Nausea and Vomiting Last Admin: 06/13/24 17:22 Dose: 4 mg Documented By: TEVIN Pantoprazole Sodium (Pantoprazole Sodium 40 Mg/10 Ml Vial) 40 mg IVPUSH BID@0630,1630 [facility] Last Admin: 06/16/24 04:57 Dose: 40 mg Documented By: EUGENIA Rifaximin (Rifaximin 550 Mg Tablet) 550 mg PO BID [facility] Last Admin: 06/16/24 08:18 Dose: 550 mg Documented By: CARI Sodium Chloride (0.9 % Sodium Chloride Flush 3 Ml Syringe) 3 ml IVFLUSH QSHIFT [facility] Last Admin: 06/16/24 08:22 Dose: 3 ml Documented By: CARI Vitamin D (Cholecalciferol (Vitamin D3) 25 Mcg Tablet) 50 mcg PO DAILY [facility] Last Admin: 06/16/24 08:19 Dose: 50 mcg Documented By: CARI Labs 06/16/24 05:11 06/16/24 05:11 Labs: Laboratory Results - last 24 hr 06/14/24 06/15/24 06/16/24 13:51 05:55 05:11 MCV 109.5 H MCH 35.8 H MCHC 32.7 RDW 18.2 H Plt Count 149 L MPV 10.8 Absolute Nucleated RBC 0.000 Nucleated RBC % (auto) 0.0 PT 18.8 H INR 1.5 H Anion Gap 11 L Estim Creat Clear Calc 39.8 Estimated GFR 38 Random Glucose 125 H Calcium 9.0 Total Bilirubin 7.6 H 5.4 H Direct Bilirubin 2.9 H 2.2 H AST 43 H 42 H ALT 18 20 Alkaline Phosphatase 67 89 Total Protein 5.7 L 5.6 L Albumin 3.0 L 2.8 L Blood Type O Positive Antibody Screen NEGATIVE Crossmatch See Detail Microbiology Microbiology Results: Microbiology 06/11/24 23:16 Gram Stain - Final Abdominal Fluid Anaerobic Culture - Preliminary No growth to date. Body Fluid Culture - Final No growth after 2 days 06/14/24 18:14 Blood Culture - Preliminary Blood - Venous No growth after 24 hours. 06/14/24 18:13 Blood Culture - Preliminary Blood - Venous No growth after 24 hours. Assessment and Plan (1) SANDRA (acute kidney injury): Status: Resolved Plan 74/F PMH etoh dependence in remission, etoh cirrhosis, copd, hfref, htn, breast ca, mood disorder, Hepatic encephalopathy--clinically resolved. -continue Lactulose 20 bid -continue Rifaximin 500 bid -last ammonia level 56 anemia, +NG lavage, no active bleed -avoid heparin, ASA -IV PPI, octreotide x 72 hrs. 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 -Paracentesis done 06/13 with removal of 3L -resume lasix and aldactone if ok with nephrology -continue midodrine, hold if BP high -LFTs are stable, Tbili down, INR down -if worsening may need to be transfer to liver a liver center -empiric Abx (ceftriaxone), cultures , lactic acid nl CKD3B, SANDRA, Creatine down from 1.9 to 1.3 -Neprhology following -cvontinue Midodrine as above COPD--no exacerbation -Inhalers PRN Left arm swelling, she denies falling on to that side..the appearance is that of hematoma, has good pulse coloration, no cold, suspect infiltrated IV, no evidence of compartmental syndrome, CT of the arm showed Fluidlike density circumferentially about the distal forearm and hand compatible with edema, cellulitis, or combination of these. Nl WBC, no fever, CPK normla. Vascular surgery rec conservative management chronic HFeEF -continue metoprolol -resume aldacton, and possibly lasix as well today Mood disorder -SSRI Abnormal MRI with concern for pancreatitic mass -study degraded by motion -CT w/o contrast--> mass not seen, noted prior liver lesion -repeat study on outpatient basis DVT prophylaxis--no heparin d/t anemia, gib needing transfusion Full code need for inpatient: for above, not able to manage in acute setting Quality Stroke Does the patient have a stroke diagnosis?: No VTE Prior VTE?: No VTE Risk Level:: Medical - moderate - high VTE Device Contraindication: Treatment Not Indicated VTE Drug Contraindication: N/A - Med Ordered
[2024-06-16 15:20] VITALS: BP 135/67; PULSE 65; RESP 18; TEMP 36.4; O2SAT 99
[2024-06-16 18:52] VITALS: BP 132/84; PULSE 67; RESP 18; TEMP 36.3; O2SAT 98
--- NOTE | 2024-06-16 23:44 | MHC.PIE ---
p; pt refused lactulose - note; pt reports bm x5 or more today, bm goal 2-3 i; dr jha made aware e; will cont to monitor
[2024-06-17 04:00] VITALS: BP 138/63; PULSE 63; RESP 18; TEMP 36.2; O2SAT 97
[2024-06-17] MEDS: Omeprazole 20 MG CAPSULE.DR PO (06:03)
[2024-06-17] MEDS: Pantoprazole Sodium 40 MG/10 ML VIAL IVPUSH (06:03)
[2024-06-17 06:32] LABS: Hematocrit 30.4 % (37.0-47.0); Hemoglobin 9.7 g/dl (12.0-16.0); Mean Corpuscular HGB Conc 31.9 g/dl (31.0-35.0); Mean Corpuscular Hemoglobin 35.9 pg (27.0-33.0); Mean Platelet Volume 10.8 fL (9.4-12.3); Platelet Count 128 X10*3/uL (160-400); Red Cell Distribution Width 17.3 % (11.0-16.0); White Blood Count 11.6 X10*3/uL (4.8-10.8)
[2024-06-17 06:33] LABS: Mean Corpuscular Volume 112.6 fL (80.0-98.0)
[2024-06-17 06:41] LABS: INTERNATIONAL NORM RATIO 1.5 (0.9-1.1); Prothrombin Time 18.7 SEC (11.1-13.3)
[2024-06-17 07:39] VITALS: BP 145/67; PULSE 60; RESP 16; TEMP 36.8; O2SAT 93
[2024-06-17] MEDS: Fluticasone/Umeclidinium/Vilanterol 200/62.5/25 BLST.W.DEV 1 PUFF INHALE (08:37)
[2024-06-17 08:38] VITALS: PULSE 77; RESP 16; O2SAT 95
[2024-06-17] MEDS: FLUoxetine HCl 20 MG CAPSULE 40 MG PO (09:29)
[2024-06-17] MEDS: Lactulose 20 GM/30 ML SOLUTION 30 GM PO ×2 (09:29→14:44)
[2024-06-17 09:30] VITALS: BP 144/96; PULSE 69
[2024-06-17] MEDS: Multivitamin TABLET 1 TAB PO (09:30)
[2024-06-17] MEDS: Gabapentin 300 MG CAPSULE PO ×2 (09:30→20:14)
[2024-06-17] MEDS: rifAXIMin 550 MG TABLET PO ×2 (09:30→20:14)
[2024-06-17] MEDS: Cholecalciferol (Vitamin D3) 25 MCG TABLET 50 MCG PO (09:30)
[2024-06-17] MEDS: Metoprolol Succinate ER 25 MG TAB.ER.24H PO (09:30)
[2024-06-17] MEDS: Acetaminophen 325 MG TABLET 650 MG PO ×2 (09:36→20:19)
[2024-06-17] MEDS: 0.9 % Sodium Chloride Flush 3 ML SYRINGE IVFLUSH ×2 (09:37→14:44)
[2024-06-17] MEDS: cefTRIAXone sodium 1 GM in 0.9 % Sodium Chloride 50 ML IV (09:59)
[2024-06-17 10:06] LABS: Hematocrit 30.3 % (37.0-47.0); Hemoglobin 9.7 g/dl (12.0-16.0); Mean Corpuscular Hemoglobin 36.2 pg (27.0-33.0); Mean Platelet Volume 11.1 fL (9.4-12.3); Platelet Count 145 X10*3/uL (160-400); Red Blood Count 2.68 X10*6/uL (4.20-5.50); Red Cell Distribution Width 17.2 % (11.0-16.0); White Blood Count 11.4 X10*3/uL (4.8-10.8)
[2024-06-17 10:12] LABS: Mean Corpuscular Volume 113.1 fL (80.0-98.0)
[2024-06-17 10:33] LABS: Anion Gap 14 (12-20); Blood Urea Nitrogen 23 mg/dL (9-16); Calcium 8.5 mg/dL (8.4-10.2); Carbon Dioxide 18 mmol/L (22-29); Chloride 107 mmol/L (96-108); Creatinine Clr Calc Pharmacy 42.9; Estimated Glomerular Filt Rate 41; Glucose Random 143 mg/dL (60-115); Potassium 4.5 mmol/L (3.3-5.1); Sodium 134 mmol/L (135-145)
--- NOTE | 2024-06-17 11:36 | HO.PM.IMPN ---
Subjective Subjective Date of Service: 06/17/24 Interval History: seen and examined family bedside no new complaints Physical Exam Vital Signs: Vital Signs: Last Vital Signs Temp 98.2 F 06/17/24 07:39 Pulse 69 06/17/24 09:30 Resp 16 06/17/24 08:38 BP 144/96 H 06/17/24 09:30 Pulse Ox 93 06/17/24 07:39 O2 Del Method Room Air 06/17/24 07:39 BMI result Body Mass Index 27.2 Const: Other: General: AO X 3, no acute distress Resp: CTA bilateral CVS: S1,S2,RRR GI: +BS, NT, no distention; no asterixis Skin: No rash ext: the left arm is less swollen with echymosis, otherwise normal colar, not tense, able to move, +normal radial and ulnar pulsesNeuro: motor grossly intact Psych: appropriate affec Objective Data Active Medications Acetaminophen (Acetaminophen 325 Mg Tablet) 650 mg PO Q6H PRN PRN Reason: Pain, Mild (Pain Scale 1-3), fever or headache Last Admin: 06/17/24 09:36 Dose: 650 mg Documented By: CARI Albuterol Sulfate (Albuterol Sulfate 90 Mcg 8 Gm Inhaler) 2 puff INHALE RQID PRN PRN Reason: for wheezing Calcium Carbonate (Calcium Carbonate 750 Mg Tab.Chew) 750 mg PO Q4H PRN PRN Reason: Heartburn Fluoxetine HCl (Fluoxetine Hcl 20 Mg Capsule) 40 mg PO DAILY [facility] Last Admin: 06/17/24 09:29 Dose: 40 mg Documented By: CARI Fluticasone/Umeclidinium/Vilanterol (Fluticasone/Umeclidinium/Vilanterol 200/62.5/25 Blst.W.Dev) 1 puff INHALE RDAILY [facility] Last Admin: 06/17/24 08:37 Dose: 1 puff Documented By: ELSY Gabapentin (Gabapentin 300 Mg Capsule) 300 mg PO BID [facility] Last Admin: 06/17/24 09:30 Dose: 300 mg Documented By: CARI Ceftriaxone Sodium 1 gm/ (Sodium Chloride) 50 mls @ 100 mls/hr IV Q24H [facility] Last Infusion: 06/17/24 10:29 Dose: Infused Documented By: CARI Octreotide Acetate 500 mcg/ (Sodium Chloride) 501 mls @ 25.05 mls/hr IVCONT .Q20H [facility] Last Admin: 06/16/24 22:21 Dose: 25 mcg/hr, 25.05 mls/hr Documented By: EUGENIA Lactulose (Lactulose 20 Gm/30 Ml Solution) 30 gm PO TID [facility] Last Admin: 06/17/24 09:29 Dose: 30 gm Documented By: CARI Magnesium Hydroxide (Milk Of Magnesia 30 Ml Oral.Susp) 30 ml PO DAILY PRN PRN Reason: Constipation Melatonin (Melatonin 3 Mg Tablet) 6 mg PO BEDTIME PRN PRN Reason: Insomnia Metoprolol Succinate (Metoprolol Succinate Er 25 Mg Tab.Er.24h) 25 mg PO DAILY [facility]; Protocol Last Admin: 06/17/24 09:30 Dose: 25 mg Documented By: CARI Midodrine (Midodrine Hcl 5 Mg Tablet) 5 mg PO TID [facility] Last Admin: 06/17/24 09:31 Dose: Not Given Documented By: CARI Non-Admin Reason: held for BP 144/69 Multivitamins/Vitamin C (Multivitamin Tablet) 1 tab PO DAILY [facility] Last Admin: 06/17/24 09:30 Dose: 1 tab Documented By: CARI Omeprazole (Omeprazole 20 Mg Capsule.Dr) 20 mg PO DAILY@0630 [facility] Last Admin: 06/17/24 06:03 Dose: 20 mg Documented By: EUGENIA Ondansetron HCl (Ondansetron Hcl 4 Mg/2 Ml Vial) 4 mg IVPUSH Q8H PRN PRN Reason: Nausea and Vomiting Last Admin: 06/13/24 17:22 Dose: 4 mg Documented By: TEVIN Rifaximin (Rifaximin 550 Mg Tablet) 550 mg PO BID [facility] Last Admin: 06/17/24 09:30 Dose: 550 mg Documented By: CARI Sodium Chloride (0.9 % Sodium Chloride Flush 3 Ml Syringe) 3 ml IVFLUSH QSHIFT [facility] Last Admin: 06/17/24 09:37 Dose: 3 ml Documented By: CARI Vitamin D (Cholecalciferol (Vitamin D3) 25 Mcg Tablet) 50 mcg PO DAILY [facility] Last Admin: 06/17/24 09:30 Dose: 50 mcg Documented By: CARI Labs 06/17/24 09:39 06/17/24 09:39 Labs: Laboratory Results - last 24 hr 06/17/24 06/17/24 06:08 09:39 MCV 112.6 H 113.1 H MCH 35.9 H 36.2 H MCHC 31.9 32.0 RDW 17.3 H 17.2 H Plt Count 128 L 145 L MPV 10.8 11.1 Absolute Nucleated RBC 0.000 0.000 Nucleated RBC % (auto) 0.0 0.0 PT 18.7 H INR 1.5 H Anion Gap 14 Estim Creat Clear Calc 42.9 Estimated GFR 41 Random Glucose 143 H Calcium 8.5 Microbiology Microbiology Results: Microbiology 06/11/24 23:16 Gram Stain - Final Abdominal Fluid Anaerobic Culture - Final NO GROWTH AFTER 5 DAYS Body Fluid Culture - Final No growth after 2 days 06/14/24 18:13 Blood Culture - Preliminary Blood - Venous No growth after 48 hours. 06/14/24 18:14 Blood Culture - Preliminary Blood - Venous No growth after 48 hours. Assessment and Plan (1) SANDRA (acute kidney injury): Status: Resolved Plan 74/F PMH etoh dependence in remission, etoh cirrhosis, copd, hfref, htn, breast ca, mood disorder, Hepatic encephalopathy--clinically resolved. 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 restart diuretics - last nephro notes state to hold CKD3B, SANDRA, Creatnine improvig -Neprhology following -continue Midodrine as above COPD--no exacerbation -Inhalers PRN Left arm swelling, she denies falling on to that side..the appearance is that of hematoma, has good pulse coloration, no cold, suspect infiltrated IV, no evidence of compartmental syndrome, CT of the arm showed Fluidlike density circumferentially about the distal forearm and hand compatible with edema, cellulitis, or combination of these. Nl WBC, no fever, CPK normla. Vascular surgery rec conservative management chronic HFeEF -continue metoprolol -resume aldactone/lasix once okay with nephro Mood disorder -SSRI Abnormal MRI with concern for pancreatitic mass -study degraded by motion -CT w/o contrast--> mass not seen, noted prior liver lesion -repeat study on outpatient basis DVT prophylaxis--no heparin d/t anemia, gib needing transfusion Full code dispo: likely STR Quality Stroke Does the patient have a stroke diagnosis?: No VTE Prior VTE?: No VTE Risk Level:: Medical - moderate - high VTE Device Contraindication: Treatment Not Indicated VTE Drug Contraindication: N/A - Med Ordered
[2024-06-17 16:00] VITALS: BP 138/64; PULSE 60; RESP 12; TEMP 35.9; O2SAT 97
[2024-06-17 20:00] VITALS: BP 123/61; PULSE 64; RESP 18; TEMP 36.2; O2SAT 98
[2024-06-17] MEDS: Midodrine HCl 5 MG TABLET PO (20:14)
[2024-06-17] MEDS: Octreotide Acetate 500 MCG in 0.9 % Sodium Chloride 500 ML 25.05 MCG IVCONT (20:20)
[2024-06-17] MEDS: Melatonin 3 MG TABLET 6 MG PO (22:00)
[2024-06-18 04:00] VITALS: BP 102/54; PULSE 61; RESP 16; TEMP 36; O2SAT 95
[2024-06-18] MEDS: Omeprazole 20 MG CAPSULE.DR PO (06:29)
[2024-06-18 06:30] LABS: INTERNATIONAL NORM RATIO 1.6 (0.9-1.1); Prothrombin Time 18.9 SEC (11.1-13.3)
[2024-06-18 07:04] LABS: Hematocrit 28.1 % (37.0-47.0); Hemoglobin 9.4 g/dl (12.0-16.0); Mean Corpuscular HGB Conc 33.5 g/dl (31.0-35.0); Mean Corpuscular Hemoglobin 36.9 pg (27.0-33.0); Platelet Count 136 X10*3/uL (160-400); Red Blood Count 2.55 X10*6/uL (4.20-5.50); Red Cell Distribution Width 17.1 % (11.0-16.0); White Blood Count 8.4 X10*3/uL (4.8-10.8)
[2024-06-18 07:11] LABS: Mean Corpuscular Volume 110.2 fL (80.0-98.0)
[2024-06-18 07:42] VITALS: BP 122/77; PULSE 58; RESP 16; TEMP 36.1; O2SAT 98
[2024-06-18] MEDS: Fluticasone/Umeclidinium/Vilanterol 200/62.5/25 BLST.W.DEV 1 PUFF INHALE (07:47)
[2024-06-18 07:48] VITALS: PULSE 62; RESP 16; O2SAT 98
[2024-06-18] MEDS: Gabapentin 300 MG CAPSULE PO ×2 (08:31→20:02)
[2024-06-18] MEDS: cefTRIAXone sodium 1 GM in 0.9 % Sodium Chloride 50 ML IV (08:31)
[2024-06-18] MEDS: Midodrine HCl 5 MG TABLET PO ×3 (08:32→20:02)
[2024-06-18] MEDS: Cholecalciferol (Vitamin D3) 25 MCG TABLET 50 MCG PO (08:32)
[2024-06-18] MEDS: rifAXIMin 550 MG TABLET PO ×2 (08:32→20:02)
[2024-06-18] MEDS: Multivitamin TABLET 1 TAB PO (08:32)
[2024-06-18] MEDS: FLUoxetine HCl 20 MG CAPSULE 40 MG PO (08:32)
[2024-06-18] MEDS: Metoprolol Succinate ER 25 MG TAB.ER.24H PO (08:32)
[2024-06-18] MEDS: 0.9 % Sodium Chloride Flush 3 ML SYRINGE IVFLUSH ×2 (08:37→20:04)
[2024-06-18] MEDS: Acetaminophen 325 MG TABLET 650 MG PO ×2 (09:21→20:07)
--- NOTE | 2024-06-18 09:51 | P.PNNP_ITS ---
Subjective Subjective Date of Service: 06/18/24 Interval history: Events noted. Sleepy Physical Exam 2 Vital Signs: Vital Signs: Last Vital Signs Temp 96.9 F 06/18/24 07:42 Pulse 62 06/18/24 07:48 Resp 16 06/18/24 07:48 BP 122/77 06/18/24 07:42 Pulse Ox 98 06/18/24 07:42 O2 Del Method Room Air 06/18/24 07:42 BMI result Body Mass Index 27.2 Neck: Neck: Yes supple Resp: Auscultation: clear to auscultation bilaterally Cardio: Palpation: no palpable S3 Heart sounds: no rubs GI: Palpation (GI): Soft to palpation Auscultation: normal bowel sounds Neuro: Motor exam (neuro): no asterixis Objective Data Labs 06/18/24 05:50 06/17/24 09:39 Labs: Laboratory Results - last 24 hr 06/17/24 06/18/24 06/18/24 09:39 05:50 06:05 WBC 11.4 H 8.4 RBC 2.68 L 2.55 L Hgb 9.7 L 9.4 L Hct 30.3 L 28.1 L MCV 113.1 H 110.2 H MCH 36.2 H 36.9 H MCHC 32.0 33.5 RDW 17.2 H 17.1 H Plt Count 145 L 136 L MPV 11.1 11.0 Absolute Nucleated RBC 0.000 0.000 Nucleated RBC % (auto) 0.0 0.0 PT 18.9 H INR 1.6 H Sodium 134 L Potassium 4.5 Chloride 107 Carbon Dioxide 18 L Anion Gap 14 BUN 23 H Creatinine 1.28 Estim Creat Clear Calc 42.9 Estimated GFR 41 Random Glucose 143 H Calcium 8.5 Microbiology Microbiology Results: Microbiology 06/11/24 23:16 Abdominal Fluid Gram Stain - Final 06/11/24 23:16 Abdominal Fluid Anaerobic Culture - Final NO GROWTH AFTER 5 DAYS 06/11/24 23:16 Abdominal Fluid Body Fluid Culture - Final No growth after 2 days 06/14/24 18:13 Blood - Venous Blood Culture - Preliminary No growth after 48 hours. 06/14/24 18:14 Blood - Venous Blood Culture - Preliminary No growth after 48 hours. Procedures Date of Service Date of Service: 06/18/24 Assessment & Plan Assessment and plan (1) SANDRA (acute kidney injury): Status: Resolved (2) SANDRA (acute kidney injury): Status: Resolved (3) CKD (chronic kidney disease) stage 3, GFR 30-59 ml/min: Status: Acute Plan 74-year-old woman with a history of cirrhosis as acute kidney injury superimposed on CKD. SANDRA due to hypoperfusion in the setting of cirrhosis. She was on Lasix and spironolactone in the setting of diarrhea which could have precipitated hypoperfusion. Creatinine is trending down Recommendation Continue to hold Lasix and spironolactone for the time being. Octreotide Avoid hypotension improvement in serum creatinine. Watch urine output Continue to avoid nephrotoxic agents. No indication for dialysis. Expiratory renal recovery. Time Spent With Patient Time: Total time managing care of this patient today ____ minutes. Progress Note: Quality Stroke Does the patient have a stroke diagnosis?: No
--- NOTE | 2024-06-18 10:01 | P.PNIM_ITS ---
Subjective Subjective Date of Service: 06/18/24 Interval History: f/u on hepatic encephalopathy, sandra, anemia, left arm swelling/hematoma interval history: has no complaint, doing well. Physical Exam 2 Vital Signs: Vital Signs: Last Vital Signs Temp 96.9 F 06/18/24 07:42 Pulse 62 06/18/24 07:48 Resp 16 06/18/24 07:48 BP 122/77 06/18/24 07:42 Pulse Ox 98 06/18/24 07:42 O2 Del Method Room Air 06/18/24 07:42 BMI result Body Mass Index 27.2 Const: Other: General: AO X 3, no acute distress Resp: CTA bilateral CVS: S1,S2,RRR GI: +BS, NT, no distention; no asterixis Skin: No rash ext: the left arm is less swollen with echymosis, otherwise normal colar, not tense, able to move--swelling overall going down +normal radial and ulnar pulsesNeuro: m otor grossly intact Psych: appropriate affec Objective Data Active Medications Acetaminophen (Acetaminophen 325 Mg Tablet) 650 mg PO Q6H PRN PRN Reason: Pain, Mild (Pain Scale 1-3), fever or headache Last Admin: 06/18/24 09:21 Dose: 650 mg Documented By: EDMUNDO Albuterol Sulfate (Albuterol Sulfate 90 Mcg 8 Gm Inhaler) 2 puff INHALE RQID PRN PRN Reason: for wheezing Calcium Carbonate (Calcium Carbonate 750 Mg Tab.Chew) 750 mg PO Q4H PRN PRN Reason: Heartburn Fluoxetine HCl (Fluoxetine Hcl 20 Mg Capsule) 40 mg PO DAILY [facility] Last Admin: 06/18/24 08:32 Dose: 40 mg Documented By: EDMUNDO Fluticasone/Umeclidinium/Vilanterol (Fluticasone/Umeclidinium/Vilanterol 200/62.5/25 Blst.W.Dev) 1 puff INHALE RDAILY [facility] Last Admin: 06/18/24 07:47 Dose: 1 puff Documented By: SCOTTY Gabapentin (Gabapentin 300 Mg Capsule) 300 mg PO BID [facility] Last Admin: 06/18/24 08:31 Dose: 300 mg Documented By: EDMUNDO Octreotide Acetate 500 mcg/ (Sodium Chloride) 501 mls @ 25.05 mls/hr IVCONT .Q20H [facility] Last Admin: 06/17/24 20:20 Dose: 25 mcg/hr, 25.05 mls/hr Documented By: NELLIE Lactulose (Lactulose 20 Gm/30 Ml Solution) 30 gm PO TID [facility] Last Admin: 06/18/24 08:38 Dose: Not Given Documented By: EDMUNDO Non-Admin Reason: Patient Refused Magnesium Hydroxide (Milk Of Magnesia 30 Ml Oral.Susp) 30 ml PO DAILY PRN PRN Reason: Constipation Melatonin (Melatonin 3 Mg Tablet) 6 mg PO BEDTIME PRN PRN Reason: Insomnia Last Admin: 06/17/24 22:00 Dose: 6 mg Documented By: NELLIE Metoprolol Succinate (Metoprolol Succinate Er 25 Mg Tab.Er.24h) 25 mg PO DAILY [facility]; Protocol Last Admin: 06/18/24 08:32 Dose: 25 mg Documented By: EDMUNDO Midodrine (Midodrine Hcl 5 Mg Tablet) 5 mg PO TID [facility] Last Admin: 06/18/24 08:32 Dose: 5 mg Documented By: EDMUNDO Multivitamins/Vitamin C (Multivitamin Tablet) 1 tab PO DAILY [facility] Last Admin: 06/18/24 08:32 Dose: 1 tab Documented By: EDMUNDO Omeprazole (Omeprazole 20 Mg Capsule.Dr) 20 mg PO DAILY@0630 [facility] Last Admin: 06/18/24 06:29 Dose: 20 mg Documented By: NELLIE Ondansetron HCl (Ondansetron Hcl 4 Mg/2 Ml Vial) 4 mg IVPUSH Q8H PRN PRN Reason: Nausea and Vomiting Last Admin: 06/13/24 17:22 Dose: 4 mg Documented By: TEVIN Rifaximin (Rifaximin 550 Mg Tablet) 550 mg PO BID [facility] Last Admin: 06/18/24 08:32 Dose: 550 mg Documented By: EDMUNDO Sodium Chloride (0.9 % Sodium Chloride Flush 3 Ml Syringe) 3 ml IVFLUSH QSHIFT [facility] Last Admin: 06/18/24 08:37 Dose: 3 ml Documented By: EDMUNDO Vitamin D (Cholecalciferol (Vitamin D3) 25 Mcg Tablet) 50 mcg PO DAILY [facility] Last Admin: 06/18/24 08:32 Dose: 50 mcg Documented By: EDMUNDO Labs 06/18/24 05:50 06/17/24 09:39 Labs: Laboratory Results - last 24 hr 06/17/24 06/18/24 06/18/24 09:39 05:50 06:05 MCV 113.1 H 110.2 H MCH 36.2 H 36.9 H MCHC 32.0 33.5 RDW 17.2 H 17.1 H Plt Count 145 L 136 L MPV 11.1 11.0 Absolute Nucleated RBC 0.000 0.000 Nucleated RBC % (auto) 0.0 0.0 PT 18.9 H INR 1.6 H Anion Gap 14 Estim Creat Clear Calc 42.9 Estimated GFR 41 Random Glucose 143 H Calcium 8.5 Microbiology Microbiology Results: Microbiology 06/11/24 23:16 Gram Stain - Final Abdominal Fluid Anaerobic Culture - Final NO GROWTH AFTER 5 DAYS Body Fluid Culture - Final No growth after 2 days Assessment and Plan (1) SANDRA (acute kidney injury): Status: Resolved Plan 74/F PMH etoh dependence in remission, etoh cirrhosis, copd, hfref, htn, breast ca, mood disorder, Hepatic encephalopathy--resolved -continue Lactulose 30 bid -continue Rifaximin 500 bid -last ammonia level 56 anemia, +NG lavage, no active bleed, H/H stable -avoid heparin, ASA -IV PPI to PO -transfused 1 unit on 06/15 Hgb 7.2 to 8.7 -Outpatient EGD per GI thrombocytopenia--chronic d/t liver disease, stable 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 CKD3B, SANDRA, Creatnine improvig -Neprhology following -continue Midodrine as above COPD--no exacerbation -Inhalers PRN Left arm swelling, she denies falling on to that side..the appearance is that of hematoma, has good pulse coloration, no cold, suspect infiltrated IV, no evidence of compartmental syndrome, CT of the arm showed Fluidlike density circumferentially about the distal forearm and hand compatible with edema, cellulitis, or combination of these. Nl WBC, no fever, CPK normla. Vascular surgery rec conservative management chronic HFeEF -continue metoprolol -resume aldactone/lasix once okay with nephro Mood disorder -SSRI Abnormal MRI with concern for pancreatitic mass -study degraded by motion -CT w/o contrast--> mass not seen, noted prior liver lesion -repeat study on outpatient basis (triple phase CT ) DVT prophylaxis--no heparin d/t anemia, gib needing transfusion Full code dispo: likely STR Quality Stroke Does the patient have a stroke diagnosis?: No VTE Prior VTE?: No VTE Risk Level:: Medical - moderate - high VTE Device Contraindication: Treatment Not Indicated VTE Drug Contraindication: N/A - Med Ordered
[2024-06-18 10:51] LABS: Ammonia 53 umol/L (13-55)
[2024-06-18 10:57] LABS: Anion Gap 14 (12-20); Blood Urea Nitrogen 24 mg/dL (9-16); Calcium 8.3 mg/dL (8.4-10.2); Carbon Dioxide 16 mmol/L (22-29); Chloride 107 mmol/L (96-108); Creatinine Clr Calc Pharmacy 37.4; Estimated Glomerular Filt Rate 35; Glucose Random 117 mg/dL (60-115); Potassium 3.9 mmol/L (3.3-5.1); Sodium 133 mmol/L (135-145)
--- NOTE | 2024-06-18 12:39 | MHC.CM.PN ---
Addendum entered by Sienna Jenkins 06/18/24 16:26: The auth has gone to physician review. Original Note: IMM 06/18/24 PT recommends STR. A bed offer has been received from [facility]. The patient and her dtr have accepted the bed offer. The STR has started the insurance authorization process. Discharge is anticipated once auth is received. AN[facility] via S
[2024-06-18 19:20] VITALS: BP 124/58; PULSE 60; RESP 18; TEMP 36.5; O2SAT 100
[2024-06-18] MEDS: Melatonin 3 MG TABLET 6 MG PO (20:07)
[2024-06-19 03:19] VITALS: BP 117/54; PULSE 62; RESP 19; TEMP 36.4; O2SAT 95
[2024-06-19] MEDS: Omeprazole 20 MG CAPSULE.DR PO (05:46)
[2024-06-19 06:22] LABS: Anion Gap 15 (12-20); Blood Urea Nitrogen 28 mg/dL (9-16); Calcium 8.7 mg/dL (8.4-10.2); Carbon Dioxide 15 mmol/L (22-29); Chloride 107 mmol/L (96-108); Creatinine Clr Calc Pharmacy 30.5; Estimated Glomerular Filt Rate 28; Glucose Random 102 mg/dL (60-115); Potassium 4.6 mmol/L (3.3-5.1); Sodium 132 mmol/L (135-145)
[2024-06-19 08:00] VITALS: BP 129/58; PULSE 59; RESP 16; TEMP 36.6; O2SAT 99
[2024-06-19] MEDS: Fluticasone/Umeclidinium/Vilanterol 200/62.5/25 BLST.W.DEV 1 PUFF INHALE (08:06)
[2024-06-19 08:07] VITALS: PULSE 68; RESP 14; O2SAT 92
[2024-06-19] MEDS: Lactulose 20 GM/30 ML SOLUTION 30 GM PO (08:19)
[2024-06-19] MEDS: Cholecalciferol (Vitamin D3) 25 MCG TABLET 50 MCG PO (08:19)
[2024-06-19] MEDS: rifAXIMin 550 MG TABLET PO ×2 (08:19→20:37)
[2024-06-19] MEDS: Metoprolol Succinate ER 25 MG TAB.ER.24H PO (08:20)
[2024-06-19] MEDS: Multivitamin TABLET 1 TAB PO (08:20)
[2024-06-19] MEDS: Gabapentin 300 MG CAPSULE PO ×2 (08:20→20:37)
[2024-06-19] MEDS: FLUoxetine HCl 20 MG CAPSULE 40 MG PO (08:20)
--- NOTE | 2024-06-19 08:20 | P.PNGI_ITS ---
Subjective Subjective Date of Service: 06/19/24 Interval History: Seen at bedside in the presence of her daughter. Patient awake, eating her lunch. Labs reviewed, CBC remained stable. Creatinine again up to 1.8 today. Nephrology on board. Plan to start LR, continue midodrine and octreotide. Critical Care Time (minutes): 0 Physical Exam 2 Vital Signs: Vital Signs: Last Vital Signs Temp 97.8 F 06/19/24 08:00 Pulse 68 06/19/24 08:07 Resp 14 06/19/24 08:07 BP 129/58 L 06/19/24 08:00 Pulse Ox 99 06/19/24 08:00 O2 Del Method Room Air 06/19/24 08:00 BMI result Body Mass Index 27.2 Elderly lady Mildly icteric No acute distress Abdomen soft, nontender Left extremity hematoma smaller No asterixis Objective Data Labs 06/18/24 05:50 06/19/24 05:46 Labs: Laboratory Results - last 24 hr 06/18/24 06/19/24 10:36 05:46 Hold Purple Top SEE NOTE Sodium 133 L 132 L Potassium 3.9 4.6 Chloride 107 107 Carbon Dioxide 16 L 15 L Anion Gap 14 15 BUN 24 H 28 H Creatinine 1.47 H 1.80 H Estim Creat Clear Calc 37.4 30.5 Estimated GFR 35 28 Random Glucose 117 H 102 Calcium 8.3 L 8.7 Ammonia 53 Microbiology Microbiology Results: Microbiology 06/11/24 23:16 Abdominal Fluid Gram Stain - Final 06/11/24 23:16 Abdominal Fluid Anaerobic Culture - Final NO GROWTH AFTER 5 DAYS 06/11/24 23:16 Abdominal Fluid Body Fluid Culture - Final No growth after 2 days 06/14/24 18:13 Blood - Venous Blood Culture - Preliminary No growth after 48 hours. 06/14/24 18:14 Blood - Venous Blood Culture - Preliminary No growth after 48 hours. Procedures Date of Service Date of Service: 06/19/24 Progress Note: A&P Assessment and plan (1) Decompensation of cirrhosis of liver: Status: Acute (2) Frailty: Status: Acute (3) SANDRA (acute kidney injury): Status: Resolved Plan Main issue now is renal function, precluding her discharge to [facility]. Patient and daughter concerned about needing dialysis, but reassured that not indicated at the moment and that we anticipate renal recovery. Plan: -agree with midodrine, LR. Please add octreotide -if creatinine does not turn around tomorrow, low threshold to add albumin -encourage p.o. intake, including protein shakes Will also arrange for follow-up in the office in 2-3 weeks Time Spent With Patient Time: Total time managing care of this patient today ____ minutes. Quality Stroke Does the patient have a stroke diagnosis?: No VTE Prior VTE?: No VTE Risk Level:: Medical - moderate - high VTE Device Contraindication: Treatment Not Indicated VTE Drug Contraindication: N/A - Med Ordered
[2024-06-19] MEDS: Midodrine HCl 5 MG TABLET PO ×3 (08:21→20:37)
[2024-06-19] MEDS: 0.9 % Sodium Chloride Flush 3 ML SYRINGE IVFLUSH ×2 (08:21→20:39)
[2024-06-19] MEDS: Lactated Ringers 1,000 ML 50 ML IVCONT (09:49)
--- NOTE | 2024-06-19 10:24 | MHC.CM.PN ---
Per MD rounds Patient is not ready to discharge today. SANDRA labs trending up. Horace Macias has been notified of the delay. The referral authorization has gone to physician review. Additional PT documentation has been sent to the facility for auth. ANTHONY Macias via BLS.
--- NOTE | 2024-06-19 10:41 | P.PNIM_ITS ---
Subjective Subjective Date of Service: 06/19/24 Interval History: No new issues, but Scr trending up, o/w doing well Physical Exam 2 Vital Signs: Vital Signs: Last Vital Signs Temp 97.8 F 06/19/24 08:00 Pulse 68 06/19/24 08:07 Resp 14 06/19/24 08:07 BP 129/58 L 06/19/24 08:00 Pulse Ox 99 06/19/24 08:00 O2 Del Method Room Air 06/19/24 08:00 BMI result Body Mass Index 27.2 Const: Other: General: AO X 3, no acute distress Resp: CTA bilateral CVS: S1,S2,RRR GI: +BS, NT, no distention; no asterixis Skin: No rash ext: the left arm is less swollen with echymosis, otherwise normal colar, not tense, able to move--swelling overall going down +normal radial and ulnar pulsesNeuro: m otor grossly intact Psych: appropriate affec Objective Data Active Medications Acetaminophen (Acetaminophen 325 Mg Tablet) 650 mg PO Q6H PRN PRN Reason: Pain, Mild (Pain Scale 1-3), fever or headache Last Admin: 06/18/24 20:07 Dose: 650 mg Documented By: ROMAN Albuterol Sulfate (Albuterol Sulfate 90 Mcg 8 Gm Inhaler) 2 puff INHALE RQID PRN PRN Reason: for wheezing Calcium Carbonate (Calcium Carbonate 750 Mg Tab.Chew) 750 mg PO Q4H PRN PRN Reason: Heartburn Fluoxetine HCl (Fluoxetine Hcl 20 Mg Capsule) 40 mg PO DAILY [facility] Last Admin: 06/19/24 08:20 Dose: 40 mg Documented By: EDMUNDO Fluticasone/Umeclidinium/Vilanterol (Fluticasone/Umeclidinium/Vilanterol 200/62.5/25 Blst.W.Dev) 1 puff INHALE RDAILY [facility] Last Admin: 06/19/24 08:06 Dose: 1 puff Documented By: COSTA Gabapentin (Gabapentin 300 Mg Capsule) 300 mg PO BID [facility] Last Admin: 06/19/24 08:20 Dose: 300 mg Documented By: EDMUNDO Lactated Ringer's (Lr) 1,000 mls @ 50 mls/hr IVCONT .Q20H [facility] Last Admin: 06/19/24 09:49 Dose: 50 mls/hr Documented By: EDMUNDO Lactulose (Lactulose 20 Gm/30 Ml Solution) 30 gm PO BID [facility] Last Admin: 06/19/24 08:19 Dose: 30 gm Documented By: EDMUNDO Magnesium Hydroxide (Milk Of Magnesia 30 Ml Oral.Susp) 30 ml PO DAILY PRN PRN Reason: Constipation Melatonin (Melatonin 3 Mg Tablet) 6 mg PO BEDTIME PRN PRN Reason: Insomnia Last Admin: 06/18/24 20:07 Dose: 6 mg Documented By: ROMAN Metoprolol Succinate (Metoprolol Succinate Er 25 Mg Tab.Er.24h) 25 mg PO DAILY [facility]; Protocol Last Admin: 06/19/24 08:20 Dose: 25 mg Documented By: EDMUNDO Midodrine (Midodrine Hcl 5 Mg Tablet) 5 mg PO TID [facility] Last Admin: 06/19/24 08:21 Dose: 5 mg Documented By: EDMUNDO Multivitamins/Vitamin C (Multivitamin Tablet) 1 tab PO DAILY [facility] Last Admin: 06/19/24 08:20 Dose: 1 tab Documented By: EDMUNDO Omeprazole (Omeprazole 20 Mg Capsule.Dr) 20 mg PO DAILY@0630 [facility] Last Admin: 06/19/24 05:46 Dose: 20 mg Documented By: ROMAN Ondansetron HCl (Ondansetron Hcl 4 Mg/2 Ml Vial) 4 mg IVPUSH Q8H PRN PRN Reason: Nausea and Vomiting Last Admin: 06/13/24 17:22 Dose: 4 mg Documented By: TEVIN Rifaximin (Rifaximin 550 Mg Tablet) 550 mg PO BID [facility] Last Admin: 06/19/24 08:19 Dose: 550 mg Documented By: EDMUNDO Sodium Chloride (0.9 % Sodium Chloride Flush 3 Ml Syringe) 3 ml IVFLUSH QSHIFT [facility] Last Admin: 06/19/24 08:21 Dose: 3 ml Documented By: EDMUNDO Vitamin D (Cholecalciferol (Vitamin D3) 25 Mcg Tablet) 50 mcg PO DAILY [facility] Last Admin: 06/19/24 08:19 Dose: 50 mcg Documented By: EDMUNDO Labs 06/18/24 05:50 06/19/24 05:46 Labs: Laboratory Results - last 24 hr 06/18/24 06/19/24 10:36 05:46 Hold Purple Top SEE NOTE Anion Gap 14 15 Estim Creat Clear Calc 37.4 30.5 Estimated GFR 35 28 Random Glucose 117 H 102 Calcium 8.3 L 8.7 Ammonia 53 Assessment and Plan (1) SANDRA (acute kidney injury): Status: Resolved Plan 74/F PMH etoh dependence in remission, etoh cirrhosis, copd, hfref, htn, breast ca, mood disorder, Hepatic encephalopathy--resolved -continue Lactulose 30 bid -continue Rifaximin 500 bid -last ammonia level 56 anemia, +NG lavage, no active bleed, H/H stable -avoid heparin, ASA -IV PPI to now PO -transfused 1 unit on 06/15 Hgb 7.2 to 8.7 -Outpatient EGD per GI thrombocytopenia--chronic d/t liver disease, stable decompensated cirrhosis of the liver with ascietes -Paracentesis done 06/13 with removal of 3L -continue midodrine, hold if BP high -LFTs are stable, Tbili down, INR down -if worsening may need to be transfer to liver a liver center -empiric Abx (ceftriaxone)- started 06/14 and stopped 06/18 -hold diuretics -Triple phase CT to be done on outpatient basis once renal function is stable. CKD3B, SANDRA, Creatnine worsening, posibly d/t diarrhea -Neprhology following -ivf -continue Midodrine as above COPD--no exacerbation -Inhalers PRN Left arm swelling, she denies falling on to that side..the appearance is that of hematoma, has good pulse coloration, no cold, suspect infiltrated IV, no evidence of compartmental syndrome, CT of the arm showed Fluidlike density circumferentially about the distal forearm and hand compatible with edema, cellulitis, or combination of these. Nl WBC, no fever, CPK normal. Vascular surgery rec conservative management chronic HFeEF -continue metoprolol -resume aldactone/lasix once okay with nephro Mood disorder -SSRI Abnormal MRI with concern for pancreatitic mass -study degraded by motion -CT w/o contrast--> mass not seen, noted prior liver lesion -repeat study on outpatient basis (triple phase CT ) DVT prophylaxis--no heparin d/t anemia, gib needing transfusion Full code dispo: likely STR Quality Stroke Does the patient have a stroke diagnosis?: No VTE Prior VTE?: No VTE Risk Level:: Medical - moderate - high VTE Device Contraindication: Treatment Not Indicated VTE Drug Contraindication: N/A - Med Ordered
--- NOTE | 2024-06-19 14:08 | P.PNNP_ITS ---
Subjective Subjective Date of Service: 06/19/24 Interval history: No new issues, but Scr trending up, o/w doing well Physical Exam 2 Vital Signs: Vital Signs: Last Vital Signs Temp 97.8 F 06/19/24 08:00 Pulse 68 06/19/24 08:07 Resp 14 06/19/24 08:07 BP 129/58 L 06/19/24 08:00 Pulse Ox 99 06/19/24 08:00 O2 Del Method Room Air 06/19/24 08:00 BMI result Body Mass Index 27.2 Neck: Neck: Yes supple Resp: Auscultation: clear to auscultation bilaterally Cardio: Palpation: no palpable S3 Heart sounds: no rubs GI: Palpation (GI): Soft to palpation Auscultation: normal bowel sounds Neuro: Motor exam (neuro): no asterixis Objective Data Labs 06/18/24 05:50 06/19/24 05:46 Labs: Laboratory Results - last 24 hr 06/19/24 05:46 Hold Purple Top SEE NOTE Sodium 132 L Potassium 4.6 Chloride 107 Carbon Dioxide 15 L Anion Gap 15 BUN 28 H Creatinine 1.80 H Estim Creat Clear Calc 30.5 Estimated GFR 28 Random Glucose 102 Calcium 8.7 Microbiology Microbiology Results: Microbiology 06/11/24 23:16 Abdominal Fluid Gram Stain - Final 06/11/24 23:16 Abdominal Fluid Anaerobic Culture - Final NO GROWTH AFTER 5 DAYS 06/11/24 23:16 Abdominal Fluid Body Fluid Culture - Final No growth after 2 days 06/14/24 18:13 Blood - Venous Blood Culture - Preliminary No growth after 48 hours. 06/14/24 18:14 Blood - Venous Blood Culture - Preliminary No growth after 48 hours. Procedures Date of Service Date of Service: 06/19/24 Assessment & Plan Assessment and plan (1) SANDRA (acute kidney injury): Status: Resolved (2) CKD (chronic kidney disease) stage 3, GFR 30-59 ml/min: Status: Acute Plan 74-year-old woman with a history of cirrhosis as acute kidney injury superimposed on CKD. SANDRA due to hypoperfusion in the setting of cirrhosis. She was on Lasix and spironolactone in the setting of diarrhea which could have precipitated hypoperfusion. Creatinine is trending upward again. Recommendation Octreotide Avoid hypotension Would cautiously hydrate her with Ringer's lactate at 50 cc/hour x1 to 2 L and reassess. She needs to stay on low-sodium diet Watch urine output Continue to avoid nephrotoxic agents. No indication for dialysis. Expiratory renal recovery. Time Spent With Patient Time: Total time managing care of this patient today ____ minutes. Progress Note: Quality Stroke Does the patient have a stroke diagnosis?: No
[2024-06-19] MEDS: Acetaminophen 325 MG TABLET 650 MG PO ×2 (14:38→20:42)
[2024-06-19 15:07] VITALS: BP 120/58; PULSE 58; RESP 18; TEMP 36.4; O2SAT 99
[2024-06-19 18:57] LABS: Hematocrit 28.8 % (37.0-47.0); Hemoglobin 9.2 g/dl (12.0-16.0); Mean Corpuscular HGB Conc 31.9 g/dl (31.0-35.0); Mean Corpuscular Hemoglobin 36.2 pg (27.0-33.0); Mean Platelet Volume 11.8 fL (9.4-12.3); Platelet Count 144 X10*3/uL (160-400); Red Blood Count 2.54 X10*6/uL (4.20-5.50); Red Cell Distribution Width 17.2 % (11.0-16.0); White Blood Count 8.9 X10*3/uL (4.8-10.8)
[2024-06-19 19:00] LABS: Anion Gap 13 (12-20); Blood Urea Nitrogen 30 mg/dL (9-16); Calcium 8.8 mg/dL (8.4-10.2); Carbon Dioxide 18 mmol/L (22-29); Chloride 106 mmol/L (96-108); Creatinine Clr Calc Pharmacy 26.9; Estimated Glomerular Filt Rate 24; Glucose Random 118 mg/dL (60-115); Potassium 3.8 mmol/L (3.3-5.1); Sodium 133 mmol/L (135-145)
[2024-06-19 19:14] VITALS: BP 122/57; PULSE 57; RESP 20; TEMP 36; O2SAT 98
[2024-06-19] MEDS: Octreotide Acetate 500 MCG in 0.9 % Sodium Chloride 500 ML 25.05 MCG IVCONT (19:26)
[2024-06-19 19:44] LABS: Mean Corpuscular Volume 113.4 fL (80.0-98.0)
[2024-06-19 19:58] LABS: Eosinophils Absolute Manual 0.2 X10*3/uL (0.0-0.4); Eosinophils Percent Manual 2 % (0-4); Lymphocytes Absolute Manual 1.3 X10*3/uL (1.2-4.9); Lymphocytes Percent Manual 15 % (20-40); Monocytes Absolute Manual 1.1 X10*3/uL (0.1-1.2); Monocytes Percent Manual 12 % (2-11); Neutrophils Percent Manual 71 % (45-73)
[2024-06-19 20:07] LABS: RBC Morphology NOTED
[2024-06-19 20:08] LABS: Burr Cells 3+ (>5) /OIF; Platelet Estimate NORMAL (NORMAL); Platelet Morphology Comment NORMAL; Schistocytes 2+ (3-5) /OIF
[2024-06-19 20:09] LABS: Band Neutrophils Percent 0 % (3-5); Neutrophils Absolute Manual 6.3 X10*3/uL (2.0-8.3)
[2024-06-19] MEDS: Lactulose 20 GM/30 ML SOLUTION PO (20:37)
[2024-06-19] MEDS: Melatonin 3 MG TABLET 6 MG PO (20:43)
[2024-06-20 03:26] VITALS: BP 121/56; PULSE 62; RESP 16; TEMP 36.2; O2SAT 95
[2024-06-20] MEDS: Lactated Ringers 1,000 ML 50 ML IVCONT (03:35)
[2024-06-20] MEDS: Omeprazole 20 MG CAPSULE.DR PO (05:54)
[2024-06-20 06:24] LABS: Hematocrit 29.4 % (37.0-47.0); Hemoglobin 9.4 g/dl (12.0-16.0); Mean Corpuscular Hemoglobin 36.4 pg (27.0-33.0); Mean Platelet Volume 11.1 fL (9.4-12.3); Platelet Count 149 X10*3/uL (160-400); Red Blood Count 2.58 X10*6/uL (4.20-5.50); Red Cell Distribution Width 17.4 % (11.0-16.0); White Blood Count 9.3 X10*3/uL (4.8-10.8)
[2024-06-20 06:36] LABS: Anion Gap 13 (12-20); Blood Urea Nitrogen 30 mg/dL (9-16); Calcium 8.8 mg/dL (8.4-10.2); Carbon Dioxide 16 mmol/L (22-29); Chloride 107 mmol/L (96-108); Creatinine Clr Calc Pharmacy 27.2; Estimated Glomerular Filt Rate 24; Glucose Random 111 mg/dL (60-115); Potassium 3.9 mmol/L (3.3-5.1); Sodium 132 mmol/L (135-145)
[2024-06-20 08:00] VITALS: BP 127/59; PULSE 56; RESP 18; TEMP 36.2; O2SAT 97
[2024-06-20] MEDS: Fluticasone/Umeclidinium/Vilanterol 200/62.5/25 BLST.W.DEV 1 PUFF INHALE (08:26)
[2024-06-20 08:29] VITALS: PULSE 64; RESP 14; O2SAT 93
[2024-06-20 09:32] VITALS: BP 132/59; PULSE 61
[2024-06-20] MEDS: Metoprolol Succinate ER 25 MG TAB.ER.24H PO (09:32)
[2024-06-20] MEDS: FLUoxetine HCl 20 MG CAPSULE 40 MG PO (09:32)
[2024-06-20] MEDS: rifAXIMin 550 MG TABLET PO ×2 (09:32→19:58)
[2024-06-20] MEDS: Gabapentin 300 MG CAPSULE PO ×2 (09:32→19:58)
[2024-06-20] MEDS: Multivitamin TABLET 1 TAB PO (09:32)
[2024-06-20] MEDS: Cholecalciferol (Vitamin D3) 25 MCG TABLET 50 MCG PO (09:32)
[2024-06-20] MEDS: Lactulose 20 GM/30 ML SOLUTION PO (09:37)
[2024-06-20] MEDS: Midodrine HCl 5 MG TABLET PO ×3 (09:37→19:59)
--- NOTE | 2024-06-20 12:40 | MHC.CM.PN ---
Per MD CLEMENTS on hold today. Pt continues with SANDRA. She will be treated and monitored today. DP STR @ [place] via [facility].
[2024-06-20] MEDS: Albumin Human 25 % 100 ML IV ×2 (13:50→17:59)
[2024-06-20] MEDS: Octreotide Acetate 500 MCG in 0.9 % Sodium Chloride 500 ML 25.05 MCG IVCONT (14:01)
[2024-06-20 14:25] LABS: B Type Natriuretic Peptide 610 pg/mL (<100)
--- NOTE | 2024-06-20 15:25 | HO.PM.IMPN ---
Subjective Subjective Date of Service: 06/20/24 Interval History: Patient feels better, unfortunate creatinine still trending up to 2.02 she looks more edeamatous, she is positive 14 liters, and BNP has risen to 600 Physical Exam Vital Signs: Vital Signs: Last Vital Signs Temp 97.2 F 06/20/24 08:00 Pulse 61 06/20/24 09:32 Resp 14 06/20/24 08:29 BP 132/59 L 06/20/24 09:32 Pulse Ox 97 06/20/24 08:00 O2 Del Method Room Air 06/20/24 08:00 BMI result Body Mass Index 27.2 Const: Other: General: AO X 3, no acute distress Resp: CTA bilateral CVS: S1,S2,RRR, 3+ pitting edema GI: +BS, NT, no distention; no asterixis Skin: No rash ext: the left arm is less swollen with echymosis, otherwise normal colar, not tense, able to move--swelling overall going down +normal radial and ulnar pulsesNeuro: motor grossly intact Psych: appropriate affec Objective Data Active Medications Acetaminophen (Acetaminophen 325 Mg Tablet) 650 mg PO Q6H PRN PRN Reason: Pain, Mild (Pain Scale 1-3), fever or headache Last Admin: 06/19/24 20:42 Dose: 650 mg Documented By: BRANDON Albuterol Sulfate (Albuterol Sulfate 90 Mcg 8 Gm Inhaler) 2 puff INHALE RQID PRN PRN Reason: for wheezing Calcium Carbonate (Calcium Carbonate 750 Mg Tab.Chew) 750 mg PO Q4H PRN PRN Reason: Heartburn Fluoxetine HCl (Fluoxetine Hcl 20 Mg Capsule) 40 mg PO DAILY [facility] Last Admin: 06/20/24 09:32 Dose: 40 mg Documented By: MARY JO Fluticasone/Umeclidinium/Vilanterol (Fluticasone/Umeclidinium/Vilanterol 200/62.5/25 Blst.W.Dev) 1 puff INHALE RDAILY [facility] Last Admin: 06/20/24 08:26 Dose: 1 puff Documented By: COSTA Gabapentin (Gabapentin 300 Mg Capsule) 300 mg PO BID [facility] Last Admin: 06/20/24 09:32 Dose: 300 mg Documented By: MARY JO Lactated Ringer's (Lr) 1,000 mls @ 80 mls/hr IVCONT .[id number] [facility] Last Infusion: 06/20/24 15:15 Dose: 80 mls/hr Documented By: MARY JO Octreotide Acetate 500 mcg/ (Sodium Chloride) 501 mls @ 25.05 mls/hr IVCONT .Q20H [facility] Last Admin: 06/20/24 14:01 Dose: 25 mcg/hr, 25.05 mls/hr Documented By: MARY JO Albumin Human (Kedbumin 25 %) 100 mls @ 100 mls/hr IV QID [facility] Stop: 06/21/24 09:59 Last Infusion: 06/20/24 15:11 Dose: Infused Documented By: MARY JO Lactulose (Lactulose 20 Gm/30 Ml Solution) 20 gm PO BID [facility] Last Admin: 06/20/24 09:37 Dose: 20 gm Documented By: MARY JO Magnesium Hydroxide (Milk Of Magnesia 30 Ml Oral.Susp) 30 ml PO DAILY PRN PRN Reason: Constipation Melatonin (Melatonin 3 Mg Tablet) 6 mg PO BEDTIME PRN PRN Reason: Insomnia Last Admin: 06/19/24 20:43 Dose: 6 mg Documented By: BRANDON Metoprolol Succinate (Metoprolol Succinate Er 25 Mg Tab.Er.24h) 25 mg PO DAILY [facility]; Protocol Last Admin: 06/20/24 09:32 Dose: 25 mg Documented By: MARY JO Midodrine (Midodrine Hcl 5 Mg Tablet) 5 mg PO TID [facility] Last Admin: 06/20/24 09:37 Dose: 5 mg Documented By: MARY JO Multivitamins/Vitamin C (Multivitamin Tablet) 1 tab PO DAILY [facility] Last Admin: 06/20/24 09:32 Dose: 1 tab Documented By: MARY JO Omeprazole (Omeprazole 20 Mg Capsule.Dr) 20 mg PO DAILY@0630 [facility] Last Admin: 06/20/24 05:54 Dose: 20 mg Documented By: BRANDON Ondansetron HCl (Ondansetron Hcl 4 Mg/2 Ml Vial) 4 mg IVPUSH Q8H PRN PRN Reason: Nausea and Vomiting Last Admin: 06/13/24 17:22 Dose: 4 mg Documented By: TEVIN Rifaximin (Rifaximin 550 Mg Tablet) 550 mg PO BID [facility] Last Admin: 06/20/24 09:32 Dose: 550 mg Documented By: MARY JO Sodium Chloride (0.9 % Sodium Chloride Flush 3 Ml Syringe) 3 ml IVFLUSH QSHIFT [facility] Last Admin: 06/20/24 09:31 Dose: Not Given Documented By: MARY JO Non-Admin Reason: IV Running Vitamin D (Cholecalciferol (Vitamin D3) 25 Mcg Tablet) 50 mcg PO DAILY [facility] Last Admin: 06/20/24 09:32 Dose: 50 mcg Documented By: MARY JO Labs 06/20/24 06:08 06/20/24 06:08 Labs: Laboratory Results - last 24 hr 06/19/24 06/19/24 06/20/24 05:46 18:34 06:08 MCV 113.4 H 114.0 H MCH 36.2 H 36.4 H MCHC 31.9 32.0 RDW 17.2 H 17.4 H Plt Count 144 L 149 L MPV 11.8 11.1 Immature Gran % (Auto) Cancelled Neut % (Auto) Cancelled Lymph % (Auto) Cancelled [place] % (Auto) Cancelled Eos % (Auto) Cancelled Baso % (Auto) Cancelled Lymph # (Auto) Cancelled [place] # (Auto) Cancelled Eos # (Auto) Cancelled Baso # (Auto) Cancelled Abs Immat Gran (auto) Cancelled Absolute Neuts (auto) Cancelled Absolute Nucleated RBC 0.000 0.000 Nucleated RBC % (auto) 0.0 0.0 Neutrophils % (Manual) 71 Band Neutrophils % 0 L Lymphocytes % (Manual) 15 L Monocytes % (Manual) 12 H Eosinophils % (Manual) 2 Abs Neuts (Manual) 6.3 Lymphocytes # (Manual) 1.3 Monocytes # (Manual) 1.1 Eosinophils # (Manual) 0.2 Platelet Estimate NORMAL Plt Morphology Comment NORMAL RBC Morphology NOTED [place] Cells 3+ (>5) Schistocytes 2+ (3-5) Smear Path Review Cancelled Anion Gap 13 13 Estim Creat Clear Calc 26.9 27.2 Estimated GFR 24 24 Random Glucose 118 H 111 Calcium 8.8 8.8 B-Natriuretic Peptide 06/20/24 13:52 MCV MCH MCHC RDW Plt Count MPV Immature Gran % (Auto) Neut % (Auto) Lymph % (Auto) [place] % (Auto) Eos % (Auto) Baso % (Auto) Lymph # (Auto) [place] # (Auto) Eos # (Auto) Baso # (Auto) Abs Immat Gran (auto) Absolute Neuts (auto) Absolute Nucleated RBC Nucleated RBC % (auto) Neutrophils % (Manual) Band Neutrophils % Lymphocytes % (Manual) Monocytes % (Manual) Eosinophils % (Manual) Abs Neuts (Manual) Lymphocytes # (Manual) Monocytes # (Manual) Eosinophils # (Manual) Platelet Estimate Plt Morphology Comment RBC Morphology [place] Cells Schistocytes Smear Path Review Anion Gap Estim Creat Clear Calc Estimated GFR Random Glucose Calcium B-Natriuretic Peptide 610 H Microbiology Microbiology Results: Microbiology 06/14/24 18:13 Blood Culture - Final Blood - Venous No growth after 5 days. 06/14/24 18:14 Blood Culture - Final Blood - Venous No growth after 5 days. Assessment and Plan (1) SANDRA (acute kidney injury): Status: Resolved (2) Hematoma of left upper extremity: Status: Acute (3) Abdominal ascites: Status: Acute (4) Decompensation of cirrhosis of liver: Status: Acute Plan 74/F PMH etoh dependence in remission, etoh cirrhosis, copd, hfref, htn, breast ca, mood disorder, Hepatic encephalopathy--resolved -continue Lactulose 30 bid -continue Rifaximin 500 bid -last ammonia level 56 anemia, +NG lavage, no active bleed, H/H stable -avoid heparin, ASA -IV PPI to now PO -transfused 1 unit on 06/15 Hgb 7.2 to 8.7 -Outpatient EGD per GI thrombocytopenia--chronic d/t liver disease, stable decompensated cirrhosis of the liver with ascietes -Paracentesis done 06/13 with removal of 3L -continue midodrine, hold if BP high -LFTs are stable, Tbili down, INR down if worsening may need to be transfer to liver a liver center -empiric Abx (ceftriaxone)- started 06/14 and stopped 06/18 -hold diuretics -Triple phase CT to be done on outpatient basis once renal function is stable. CKD3B, SANDRA, worsening creatine, ? hepato renal vs cardio renal given fluid overloaded status with +14 liters, elevated BNP and worsening with IVF -stop IVF -IV lasix 20 bid and closely continue to moniyot -track I/O -Neprhology following COPD--no exacerbation -Inhalers PRN Left arm swelling, she denies falling on to that side..the appearance is that of hematoma, has good pulse coloration, no cold, suspect infiltrated IV, no evidence of compartmental syndrome, CT of the arm showed Fluidlike density circumferentially about the distal forearm and hand compatible with edema, cellulitis, or combination of these. Nl WBC, no fever, CPK normal. Vascular surgery rec conservative management chronic HFeEF -continue metoprolol -resume aldactone/lasix once okay with nephro Mood disorder -SSRI Abnormal MRI with concern for pancreatitic mass -study degraded by motion -CT w/o contrast--> mass not seen, noted prior liver lesion -repeat study on outpatient basis (triple phase CT ) DVT prophylaxis--no heparin d/t anemia, gib needing transfusion Full code dispo: likely STR Quality Stroke Does the patient have a stroke diagnosis?: No VTE Prior VTE?: No VTE Risk Level:: Medical - moderate - high VTE Device Contraindication: Treatment Not Indicated VTE Drug Contraindication: N/A - Med Ordered
[2024-06-20 16:15] VITALS: BP 140/63; PULSE 60; RESP 18; TEMP 36.4; O2SAT 97
[2024-06-20] MEDS: Furosemide 20 MG/2 ML VIAL IVPUSH (16:58)
[2024-06-20] MEDS: 0.9 % Sodium Chloride Flush 3 ML SYRINGE IVFLUSH ×2 (16:59→19:57)
[2024-06-20] MEDS: Acetaminophen 325 MG TABLET 650 MG PO (18:22)
[2024-06-20 19:36] VITALS: BP 127/57; PULSE 69; RESP 18; TEMP 36.6; O2SAT 98
--- NOTE | 2024-06-20 20:14 | PC.NURSE ---
Assumed care of patient at 19:00. Pt is A&Ox3, forgetful re: year/situation at times though easily reorients and recalls responses with minimal cueing. Albumin two of four bags ordered completed infusing on assuming care. Patient assessed and lungs dim with crackles in bilateral bases. Pt SOB during conversation requiring breaks to finish her sentence, improves with rest. Covering Dr. Valencia notified and vitals and MAR were discussed. Per MAR review, IV lasix BID recently ordered with first dose given at 16:58. MD order to continue with scheduled midodrine administration (staff writer had requested clarification as no mar parameters were listed) and hold scheduled albumin. Additional lasix deferred by MD at this time, orders placed for continuous spo2 monitoring, placed showing 98%. Breathing even and unlabored at rest on time of spo2 placement. Lactulose held as pt refused, stated I've been going all day .
[2024-06-21] VITALS (9 sets, daily range): BP systolic 112–133; BP diastolic 56–61; PULSE 55–82; RESP 14–20; TEMP 36.1–36.4; O2SAT 94–99; BMI 30.4
[2024-06-21] MEDS: Morphine Sulfate 2 MG/ML CARTRIDGE IVPUSH (06:11)
[2024-06-21] MEDS: Omeprazole 20 MG CAPSULE.DR PO (06:12)
[2024-06-21] MEDS: Fluticasone/Umeclidinium/Vilanterol 200/62.5/25 BLST.W.DEV 1 PUFF INHALE (07:57)
[2024-06-21 08:01] LABS: Hemoglobin 8.2 g/dl (12.0-16.0); Mean Corpuscular HGB Conc 32.8 g/dl (31.0-35.0); Mean Corpuscular Hemoglobin 36.3 pg (27.0-33.0); Mean Platelet Volume 10.7 fL (9.4-12.3); Platelet Count 147 X10*3/uL (160-400); Red Blood Count 2.26 X10*6/uL (4.20-5.50); Red Cell Distribution Width 17.8 % (11.0-16.0); White Blood Count 8.3 X10*3/uL (4.8-10.8)
[2024-06-21 08:04] LABS: Mean Corpuscular Volume 110.6 fL (80.0-98.0)
[2024-06-21 08:07] LABS: Anion Gap 14 (12-20); Blood Urea Nitrogen 34 mg/dL (9-16); Calcium 9.1 mg/dL (8.4-10.2); Carbon Dioxide 17 mmol/L (22-29); Chloride 106 mmol/L (96-108); Creatinine Clr Calc Pharmacy 26.8; Estimated Glomerular Filt Rate 24; Glucose Random 111 mg/dL (60-115); Potassium 3.7 mmol/L (3.3-5.1); Sodium 133 mmol/L (135-145)
[2024-06-21] MEDS: Cholecalciferol (Vitamin D3) 25 MCG TABLET 50 MCG PO (09:12)
[2024-06-21] MEDS: Multivitamin TABLET 1 TAB PO (09:12)
[2024-06-21] MEDS: FLUoxetine HCl 20 MG CAPSULE 40 MG PO (09:12)
[2024-06-21] MEDS: rifAXIMin 550 MG TABLET PO ×2 (09:12→19:33)
[2024-06-21] MEDS: Furosemide 20 MG/2 ML VIAL IVPUSH ×2 (09:17→19:33)
[2024-06-21] MEDS: Gabapentin 300 MG CAPSULE PO ×2 (09:17→19:34)
[2024-06-21] MEDS: Lactulose 20 GM/30 ML SOLUTION PO (09:18)
--- NOTE | 2024-06-21 09:31 | PC.NURSE ---
Per MD Castroapaleno hold both Midodrine and Albumin.
--- NOTE | 2024-06-21 09:51 | P.PNIM_ITS ---
Subjective Subjective Date of Service: 06/21/24 Interval History: Overall feels better, had some episode of sob overnight, promptin albumin to be on hold no sob this morning, generally edematous Physical Exam 2 Vital Signs: Vital Signs: Last Vital Signs Temp 97.6 F 06/21/24 07:48 Pulse 82 06/21/24 07:58 Resp 16 06/21/24 07:58 BP 128/60 06/21/24 09:17 Pulse Ox 98 06/21/24 07:48 O2 Del Method Room Air 06/21/24 07:48 BMI result Body Mass Index 27.2 Const: Other: General: AO X 3, no acute distress Resp: CTA bilateral CVS: S1,S2,RRR, 3+ pitting edema GI: +BS, NT, no distention; no asterixis Skin: No rash ext: the left arm is less swollen with echymosis, otherwise normal colar, not tense, able to move--swelling overall going down +normal radial and ulnar pulsesNeuro: m otor grossly intact Psych: appropriate affec Objective Data Active Medications Acetaminophen (Acetaminophen 325 Mg Tablet) 650 mg PO Q6H PRN PRN Reason: Pain, Mild (Pain Scale 1-3), fever or headache Last Admin: 06/20/24 18:22 Dose: 650 mg Documented By: MARY JO Albuterol Sulfate (Albuterol Sulfate 90 Mcg 8 Gm Inhaler) 2 puff INHALE RQID PRN PRN Reason: for wheezing Calcium Carbonate (Calcium Carbonate 750 Mg Tab.Chew) 750 mg PO Q4H PRN PRN Reason: Heartburn Fluoxetine HCl (Fluoxetine Hcl 20 Mg Capsule) 40 mg PO DAILY [facility] Last Admin: 06/21/24 09:12 Dose: 40 mg Documented By: CARI Fluticasone/Umeclidinium/Vilanterol (Fluticasone/Umeclidinium/Vilanterol 200/62.5/25 Blst.W.Dev) 1 puff INHALE RDAILY [facility] Last Admin: 06/21/24 07:57 Dose: 1 puff Documented By: SCOTTY Furosemide (Furosemide 20 Mg/2 Ml Vial) 20 mg IVPUSH BID@0900,1800 [facility]; Protocol Last Admin: 06/21/24 09:17 Dose: 20 mg Documented By: CARI Gabapentin (Gabapentin 300 Mg Capsule) 300 mg PO BID [facility] Last Admin: 06/21/24 09:17 Dose: 300 mg Documented By: CARI Octreotide Acetate 500 mcg/ (Sodium Chloride) 501 mls @ 25.05 mls/hr IVCONT .Q20H [facility] Last Admin: 06/20/24 14:01 Dose: 25 mcg/hr, 25.05 mls/hr Documented By: MARY JO Albumin Human (Kedbumin 25 %) 100 mls @ 100 mls/hr IV QID [facility] Stop: 06/21/24 09:59 Last Admin: 06/21/24 09:18 Dose: Not Given Documented By: CARI Non-Admin Reason: held per MD Roberts Lactulose (Lactulose 20 Gm/30 Ml Solution) 20 gm PO BID [facility] Last Admin: 06/21/24 09:18 Dose: 20 gm Documented By: CARI Magnesium Hydroxide (Milk Of Magnesia 30 Ml Oral.Susp) 30 ml PO DAILY PRN PRN Reason: Constipation Melatonin (Melatonin 3 Mg Tablet) 6 mg PO BEDTIME PRN PRN Reason: Insomnia Last Admin: 06/19/24 20:43 Dose: 6 mg Documented By: BRANDON Metoprolol Succinate (Metoprolol Succinate Er 25 Mg Tab.Er.24h) 25 mg PO DAILY [facility]; Protocol Last Admin: 06/21/24 09:16 Dose: Not Given Documented By: CARI Non-Tara Reason: held for HR 56 Midodrine (Midodrine Hcl 5 Mg Tablet) 5 mg PO TID [facility] Last Admin: 06/21/24 09:18 Dose: Not Given Documented By: CARI Non-Tara Reason: held per MD Roberts Multivitamins/Vitamin C (Multivitamin Tablet) 1 tab PO DAILY [facility] Last Admin: 06/21/24 09:12 Dose: 1 tab Documented By: CARI Omeprazole (Omeprazole 20 Mg Capsule.) 20 mg PO DAILY@0630 [facility] Last Admin: 06/21/24 06:12 Dose: 20 mg Documented By: MILTON Ondansetron HCl (Ondansetron Hcl 4 Mg/2 Ml Vial) 4 mg IVPUSH Q8H PRN PRN Reason: Nausea and Vomiting Last Admin: 06/13/24 17:22 Dose: 4 mg Documented By: TEVIN Rifaximin (Rifaximin 550 Mg Tablet) 550 mg PO BID [facility] Last Admin: 06/21/24 09:12 Dose: 550 mg Documented By: CARI Sodium Chloride (0.9 % Sodium Chloride Flush 3 Ml Syringe) 3 ml IVFLUSH QSHIFT [facility] Last Admin: 06/21/24 09:18 Dose: Not Given Documented By: CARI Non-Admin Reason: IV Running Vitamin D (Cholecalciferol (Vitamin D3) 25 Mcg Tablet) 50 mcg PO DAILY [facility] Last Admin: 06/21/24 09:12 Dose: 50 mcg Documented By: CARI Labs 06/21/24 06:57 06/21/24 06:57 Labs: Laboratory Results - last 24 hr 06/20/24 06/21/24 13:52 06:57 MCV 110.6 H MCH 36.3 H MCHC 32.8 RDW 17.8 H Plt Count 147 L MPV 10.7 Absolute Nucleated RBC 0.000 Nucleated RBC % (auto) 0.0 Anion Gap 14 Estim Creat Clear Calc 26.8 Estimated GFR 24 Random Glucose 111 Calcium 9.1 B-Natriuretic Peptide 610 H Assessment and Plan (1) SANDRA (acute kidney injury): Status: Resolved (2) Hematoma of left upper extremity: Status: Acute (3) Abdominal ascites: Status: Acute (4) Decompensation of cirrhosis of liver: Status: Acute Plan 74/F PMH etoh dependence in remission, etoh cirrhosis, copd, hfref, htn, breast ca, mood disorder, Hepatic encephalopathy--resolved -continue Lactulose 30 bid -continue Rifaximin 500 bid -last ammonia level 56 anemia, +NG lavage, no active bleed, H/H stable -avoid heparin, ASA -IV PPI to now PO -transfused 1 unit on 06/15, hgbn 8.2 today, down from yesterda -Outpatient EGD per GI thrombocytopenia--chronic d/t liver disease, stable decompensated cirrhosis of the liver with ascietes -Paracentesis done 06/13 with removal of 3L -continue midodrine, hold if BP high -LFTs are stable, Tbili down, INR down if worsening may need to be transfer to liver a liver center -empiric Abx (ceftriaxone)- started 06/14 and stopped 06/18 -Triple phase CT to be done on outpatient basis once renal function is stable -on octreotide + albumin per gi, will check with gi about continuing. CKD3B, SANDRA, worsening creatine, ? hepato renal vs cardio renal given fluid overloaded status with -14 liters, elevated BNP and worsening with IVF -stop IVF, BNP 610 -IV lasix 20 bid and closely continue to monitor -track I/O closely -Neprhology following COPD--no exacerbation -Inhalers PRN Left arm swelling, she denies falling on to that side..the appearance is that of hematoma, has good pulse coloration, no cold, suspect infiltrated IV, no evidence of compartmental syndrome, CT of the arm showed Fluidlike density circumferentially about the distal forearm and hand compatible with edema, cellulitis, or combination of these. Nl WBC, no fever, CPK normal. Vascular surgery rec conservative management---swelling is signficantly down chronic HFeEF -continue metoprolol -Lasix as above Mood disorder -SSRI Abnormal MRI with concern for pancreatitic mass -study degraded by motion -CT w/o contrast--> mass not seen, noted prior liver lesion -repeat study on outpatient basis (triple phase CT ) DVT prophylaxis--no heparin d/t anemia, gib needing transfusion Full code dispo: likely STR when medically stable Quality Stroke Does the patient have a stroke diagnosis?: No VTE Prior VTE?: No VTE Risk Level:: Medical - moderate - high VTE Device Contraindication: Treatment Not Indicated VTE Drug Contraindication: N/A - Med Ordered
--- NOTE | 2024-06-21 10:35 | P.PNNP_ITS ---
Subjective Subjective Date of Service: 06/21/24 Interval history: Overall feels better, had some episode of sob overnight, promptin albumin to be on hold no sob this morning, generally edematous Physical Exam 2 Vital Signs: Vital Signs: Last Vital Signs Temp 97.6 F 06/21/24 07:48 Pulse 82 06/21/24 07:58 Resp 16 06/21/24 07:58 BP 128/60 06/21/24 09:17 Pulse Ox 98 06/21/24 07:48 O2 Del Method Room Air 06/21/24 07:48 BMI result Body Mass Index 27.2 Neck: Neck: Yes supple Resp: Auscultation: clear to auscultation bilaterally Cardio: Palpation: no palpable S3 Heart sounds: no rubs GI: Palpation (GI): Soft to palpation Auscultation: normal bowel sounds Neuro: Motor exam (neuro): no asterixis Objective Data Labs 06/21/24 06:57 06/21/24 06:57 Labs: Laboratory Results - last 24 hr 06/20/24 06/21/24 13:52 06:57 WBC 8.3 RBC 2.26 L Hgb 8.2 L Hct 25.0 L MCV 110.6 H MCH 36.3 H MCHC 32.8 RDW 17.8 H Plt Count 147 L MPV 10.7 Absolute Nucleated RBC 0.000 Nucleated RBC % (auto) 0.0 Sodium 133 L Potassium 3.7 Chloride 106 Carbon Dioxide 17 L Anion Gap 14 BUN 34 H Creatinine 2.05 H Estim Creat Clear Calc 26.8 Estimated GFR 24 Random Glucose 111 Calcium 9.1 B-Natriuretic Peptide 610 H Microbiology Microbiology Results: Microbiology 06/14/24 18:13 Blood - Venous Blood Culture - Final No growth after 5 days. 06/14/24 18:14 Blood - Venous Blood Culture - Final No growth after 5 days. 06/11/24 23:16 Abdominal Fluid Gram Stain - Final 06/11/24 23:16 Abdominal Fluid Anaerobic Culture - Final NO GROWTH AFTER 5 DAYS 06/11/24 23:16 Abdominal Fluid Body Fluid Culture - Final No growth after 2 days Procedures Date of Service Date of Service: 06/21/24 Assessment & Plan Assessment and plan (1) SANDRA (acute kidney injury): Status: Resolved (2) CKD (chronic kidney disease) stage 3, GFR 30-59 ml/min: Status: Acute Plan 74-year-old woman with a history of cirrhosis as acute kidney injury superimposed on CKD. SANDRA due to hypoperfusion in the setting of cirrhosis. She was on Lasix and spironolactone in the setting of diarrhea which could have precipitated hypoperfusion. Creatinine is trending upward again. Recommendation Octreotide Avoid hypotension Lasix 20 mg BID Keep O >I Avoid aggressive diuresis She needs to stay on low-sodium diet Watch urine output Continue to avoid nephrotoxic agents. No indication for dialysis. Time Spent With Patient Time: Total time managing care of this patient today ____ minutes. Progress Note: Quality Stroke Does the patient have a stroke diagnosis?: No
[2024-06-21 10:44] LABS: Alanine Aminotransferase 20 U/L (0-31); Albumin Level 3.1 g/dL (3.5-5.0); Alkaline Phosphatase 70 U/L (39-117); Aspartate Amino Transferase 38 U/L (5-31); Bilirubin Direct 1.5 mg/dL (0.0-0.5); Bilirubin Total 3.1 mg/dL (0.0-1.0); Total Protein 5.5 g/dL (6.5-8.0)
[2024-06-21] MEDS: Octreotide Acetate 500 MCG in 0.9 % Sodium Chloride 500 ML 25.05 MCG IVCONT (10:49)
--- NOTE | 2024-06-21 14:26 | MHC.CM.PN ---
Per MD rounds no discharge today, SANDRA continues. The facility is seeking Auth again. A new PT note was sent to the facility for auth. Per MD patient may be ready 1-2 days. ANTHONY Macias via BLS.
--- NOTE | 2024-06-21 16:12 | PC.NURSE ---
Addendum entered by Juine Ortiz RN 06/21/24 16:55: Per MD Roberts via tiger text 16:20, hold Lasix dose. Original Note: MD Roberts made are pts urine output for this shift 175ml total. Per , place FC for fluid management. FC inserted using sterile technique, pt tolerated well. 100ml of pale yellow urine immediately drained.
[2024-06-21] MEDS: Midodrine HCl 5 MG TABLET PO ×2 (16:21→19:40)
--- NOTE | 2024-06-21 16:24 | PC.NURSE ---
MD Roberts made aware pt had scant amount of blood in brief two times this shift, once at 11:02 and again around 16:00 before FC insert. There does not appear to be any skin break down in herman region, no blood from rectum. Pt believes blood to be from vagina. No new orders at this time.
[2024-06-21 17:38] LABS: Hematocrit 26.7 % (37.0-47.0); Hemoglobin 8.8 g/dl (12.0-16.0); Mean Corpuscular Hemoglobin 36.7 pg (27.0-33.0); Mean Platelet Volume 11.1 fL (9.4-12.3); Platelet Count 147 X10*3/uL (160-400); Red Cell Distribution Width 18.1 % (11.0-16.0); White Blood Count 8.9 X10*3/uL (4.8-10.8)
[2024-06-21] MEDS: Albumin Human 25 % 100 ML IV (17:45)
[2024-06-21 17:53] LABS: Anion Gap 14 (12-20); Blood Urea Nitrogen 36 mg/dL (9-16); Carbon Dioxide 15 mmol/L (22-29); Chloride 109 mmol/L (96-108); Creatinine Clr Calc Pharmacy 24.3; Estimated Glomerular Filt Rate 20; Glucose Random 131 mg/dL (60-115); Potassium 4.1 mmol/L (3.3-5.1); Sodium 134 mmol/L (135-145)
[2024-06-21 17:59] LABS: Mean Corpuscular Volume 111.3 fL (80.0-98.0)
[2024-06-21] MEDS: Acetaminophen 325 MG TABLET 650 MG PO (18:33)
[2024-06-21] MEDS: 0.9 % Sodium Chloride Flush 3 ML SYRINGE IVFLUSH (19:33)
[2024-06-21] MEDS: Melatonin 3 MG TABLET 6 MG PO (20:02)
[2024-06-22] VITALS (8 sets, daily range): BP systolic 108–130; BP diastolic 50–60; PULSE 60–65; RESP 18; TEMP 36.2–36.8; O2SAT 98–99
[2024-06-22] MEDS: Omeprazole 20 MG CAPSULE.DR PO (04:23)
--- NOTE | 2024-06-22 05:19 | PC.NURSE ---
Pt AOx3, forgetful at times but easily reoriented. Pt states she feels defeated and as if her health is taking a step back w/the re-insertion of the cuellar catheter. She is also feeling defeated as her daughter speaks w/her about finances and the possibility of having to go to a SNF. She stated she just wants to feel validated in her feelings. This RN listened to the pt's concerns and encouraged her to speak w/her daughter about these feelings. At the beginning of this RN' shift, pt's lung sounds dim w/fine crackles, she has 3+ pitting to her extremities, she sometimes wheezes w/exertion. Hospitalist tigered for clarification about starting IVF which were ordered. He then ordered a STAT cxr and Lasix IVP, d/cing the IFV. Cuellar catheter patent, draining CYU. She did have a BM overnight, large and formed. No new skin issues as of this note. Pt did ambulate to the bathroom w/rolling walker and x1 assist w/o any respiratory issues. Prior to having a BM she did state she felt the cuellar catheter was uncomfortable, after having the BM she stated it felt better. Bed alarm on, call dyson within reach.
[2024-06-22 06:21] LABS: Hematocrit 24.6 % (37.0-47.0); Mean Corpuscular HGB Conc 32.5 g/dl (31.0-35.0); Mean Corpuscular Hemoglobin 36.4 pg (27.0-33.0); Mean Corpuscular Volume 111.8 fL (80.0-98.0); Mean Platelet Volume 10.5 fL (9.4-12.3); Platelet Count 143 X10*3/uL (160-400); White Blood Count 8.3 X10*3/uL (4.8-10.8)
[2024-06-22] MEDS: Fluticasone/Umeclidinium/Vilanterol 200/62.5/25 BLST.W.DEV 1 PUFF INHALE (08:13)
[2024-06-22 08:16] LABS: INTERNATIONAL NORM RATIO 1.6 (0.9-1.1); Prothrombin Time 19.7 SEC (11.1-13.3)
[2024-06-22 08:22] LABS: Alanine Aminotransferase 16 U/L (0-31); Alkaline Phosphatase 65 U/L (39-117); Anion Gap 12 (12-20); Aspartate Amino Transferase 36 U/L (5-31); Bilirubin Direct 1.7 mg/dL (0.0-0.5); Bilirubin Total 3.9 mg/dL (0.0-1.0); Blood Urea Nitrogen 38 mg/dL (9-16); Calcium 8.7 mg/dL (8.4-10.2); Carbon Dioxide 18 mmol/L (22-29); Chloride 108 mmol/L (96-108); Creatinine Clr Calc Pharmacy 24.8; Estimated Glomerular Filt Rate 21; Glucose Random 116 mg/dL (60-115); Potassium 3.8 mmol/L (3.3-5.1); Sodium 134 mmol/L (135-145); Total Protein 5.4 g/dL (6.5-8.0)
[2024-06-22] MEDS: Cholecalciferol (Vitamin D3) 25 MCG TABLET 50 MCG PO (08:55)
[2024-06-22] MEDS: FLUoxetine HCl 20 MG CAPSULE 40 MG PO (08:55)
[2024-06-22] MEDS: Multivitamin TABLET 1 TAB PO (08:55)
[2024-06-22] MEDS: Gabapentin 300 MG CAPSULE PO ×2 (08:55→20:15)
[2024-06-22] MEDS: Metoprolol Succinate ER 25 MG TAB.ER.24H PO (08:55)
[2024-06-22] MEDS: rifAXIMin 550 MG TABLET PO ×2 (08:55→20:16)
[2024-06-22] MEDS: Midodrine HCl 5 MG TABLET PO ×3 (08:56→20:16)
[2024-06-22] MEDS: Octreotide Acetate 500 MCG in 0.9 % Sodium Chloride 500 ML 25.05 MCG IVCONT (08:59)
--- NOTE | 2024-06-22 09:49 | P.PNIM_ITS ---
Subjective Subjective Date of Service: 06/22/24 Interval History: Being treated for decompensated liver disease, anemia, and jae failure appear fluid overloaded, decrease urine output but seem improved overnight with IV lasix clinically she says she feels well, no encephalopathy. Anemia stable. Physical Exam 2 Vital Signs: Vital Signs: Last Vital Signs Temp 97.6 F 06/22/24 07:56 Pulse 63 06/22/24 08:15 Resp 18 06/22/24 08:15 BP 125/60 06/22/24 07:56 Pulse Ox 99 06/22/24 07:56 O2 Del Method Room Air 06/22/24 07:56 BMI result Body Mass Index 30.4 Const: Other: General: AO X 3, no acute distress Resp: CTA bilateral CVS: S1,S2,RRR, 3+ pitting edema in legs GI: +BS, NT, distention with signs of ascietes; no asterixis Skin: No rash ext: the left arm is less swollen with echymosis, otherwise normal colar, not tense, able to move--swelling overall going down +normal radial and ulnar pulsesNeuro: m otor grossly intact Psych: appropriate affec Objective Data Active Medications Acetaminophen (Acetaminophen 325 Mg Tablet) 650 mg PO Q6H PRN PRN Reason: Pain, Mild (Pain Scale 1-3), fever or headache Last Admin: 06/21/24 18:33 Dose: 650 mg Documented By: CARI Albuterol Sulfate (Albuterol Sulfate 90 Mcg 8 Gm Inhaler) 2 puff INHALE RQID PRN PRN Reason: for wheezing Calcium Carbonate (Calcium Carbonate 750 Mg Tab.Chew) 750 mg PO Q4H PRN PRN Reason: Heartburn Fluoxetine HCl (Fluoxetine Hcl 20 Mg Capsule) 40 mg PO DAILY [facility] Last Admin: 06/22/24 08:55 Dose: 40 mg Documented By: DOBROB Fluticasone/Umeclidinium/Vilanterol (Fluticasone/Umeclidinium/Vilanterol 200/62.5/25 Blst.W.Dev) 1 puff INHALE RDAILY [facility] Last Admin: 06/22/24 08:13 Dose: 1 puff Documented By: ELSY Furosemide (Furosemide 40 Mg/4 Ml Vial) 40 mg IVPUSH Q12H [facility]; Protocol Gabapentin (Gabapentin 300 Mg Capsule) 300 mg PO BID [facility] Last Admin: 06/22/24 08:55 Dose: 300 mg Documented By: INOCENTE Octreotide Acetate 500 mcg/ (Sodium Chloride) 501 mls @ 25.05 mls/hr IVCONT .Q20H [facility] Last Admin: 06/22/24 08:59 Dose: 25 mcg/hr, 25.05 mls/hr Documented By: INOCENTE Magnesium Hydroxide (Milk Of Magnesia 30 Ml Oral.Susp) 30 ml PO DAILY PRN PRN Reason: Constipation Melatonin (Melatonin 3 Mg Tablet) 6 mg PO BEDTIME PRN PRN Reason: Insomnia Last Admin: 06/21/24 20:02 Dose: 6 mg Documented By: MARIZA Metoprolol Succinate (Metoprolol Succinate Er 25 Mg Tab.Er.24h) 25 mg PO DAILY [facility]; Protocol Last Admin: 06/22/24 08:55 Dose: 25 mg Documented By: INOCENTE Midodrine (Midodrine Hcl 5 Mg Tablet) 5 mg PO TID [facility] Last Admin: 06/22/24 08:56 Dose: 5 mg Documented By: INOCENTE Multivitamins/Vitamin C (Multivitamin Tablet) 1 tab PO DAILY [facility] Last Admin: 06/22/24 08:55 Dose: 1 tab Documented By: INOCENTE Omeprazole (Omeprazole 20 Mg Capsule.Dr) 20 mg PO DAILY@0630 [facility] Last Admin: 06/22/24 04:23 Dose: 20 mg Documented By: MARIZA Ondansetron HCl (Ondansetron Hcl 4 Mg/2 Ml Vial) 4 mg IVPUSH Q8H PRN PRN Reason: Nausea and Vomiting Last Admin: 06/13/24 17:22 Dose: 4 mg Documented By: TEVIN Rifaximin (Rifaximin 550 Mg Tablet) 550 mg PO BID [facility] Last Admin: 06/22/24 08:55 Dose: 550 mg Documented By: INOCENTE Sodium Chloride (0.9 % Sodium Chloride Flush 3 Ml Syringe) 3 ml IVFLUSH QSHIFT [facility] Last Admin: 06/22/24 07:53 Dose: Not Given Documented By: INOCENTE Non-Admin Reason: IV Running Vitamin D (Cholecalciferol (Vitamin D3) 25 Mcg Tablet) 50 mcg PO DAILY [facility] Last Admin: 06/22/24 08:55 Dose: 50 mcg Documented By: INOCENTE Labs 06/22/24 05:21 06/22/24 07:43 Labs: Laboratory Results - last 24 hr 06/21/24 06/21/24 06/22/24 06:57 17:13 05:21 MCV 111.3 H 111.8 H MCH 36.7 H 36.4 H MCHC 33.0 32.5 RDW 18.1 H 18.0 H Plt Count 147 L 143 L MPV 11.1 10.5 Absolute Nucleated RBC 0.000 0.000 Nucleated RBC % (auto) 0.0 0.0 PT INR Anion Gap 14 Estim Creat Clear Calc 24.3 Estimated GFR 20 Random Glucose 131 H Calcium 9.0 Total Bilirubin 3.1 H Direct Bilirubin 1.5 H AST 38 H ALT 20 Alkaline Phosphatase 70 Total Protein 5.5 L Albumin 3.1 L Blood Type O Positive Antibody Screen NEGATIVE 06/22/24 07:43 MCV MCH MCHC RDW Plt Count MPV Absolute Nucleated RBC Nucleated RBC % (auto) PT 19.7 H INR 1.6 H Anion Gap 12 Estim Creat Clear Calc 24.8 Estimated GFR 21 Random Glucose 116 H Calcium 8.7 Total Bilirubin 3.9 H Direct Bilirubin 1.7 H AST 36 H ALT 16 Alkaline Phosphatase 65 Total Protein 5.4 L Albumin 3.0 L Blood Type Antibody Screen Assessment and Plan (1) SANDRA (acute kidney injury): Status: Resolved (2) Hematoma of left upper extremity: Status: Acute (3) Abdominal ascites: Status: Acute (4) Decompensation of cirrhosis of liver: Status: Acute Plan 74/F PMH etoh dependence in remission, etoh cirrhosis, copd, hfref, htn, breast ca, mood disorder, Hepatic encephalopathy--resolved -continue Lactulose 20 bid -continue Rifaximin 500 bid -last ammonia level 56 anemia, +NG was lavage, no active bleed, H/H stable -avoid heparin, ASA -IV PPI to now PO -transfused 1 unit on 06/15, hgbn 8.4 -Outpatient EGD per GI thrombocytopenia--chronic d/t liver disease, stable decompensated cirrhosis of the liver with ascietes -Paracentesis done 06/13 with removal of 3L no evidence of -paracentesis again today -continue midodrine, hold if BP high -LFTs are stable, Tbili down, INR stable around 1.6 if worsening may need to be transfer to liver a liver center -empiric Abx (ceftriaxone)- started 06/14 and stopped 06/18 given no evidence of infection -Triple phase CT to be done on outpatient basis once renal function is stable -on octreotide + albumin per gi, will check with gi about continuing. CKD3B, SANDRA, worsening creatine, ? hepato renal vs cardio renal given fluid overloaded status with -14 liters, elevated BNP and worsening with IVF -stop IVF, BNP 610 -according to record + 20 liters -Urine output seems better with IV diuretics, continue Lasix at 40 bid -track I/O closely with cuellar -Neprhology following COPD--no exacerbation -Inhalers PRN Left arm swelling, she denies falling on to that side..the appearance is that of hematoma, has good pulse coloration, no cold, suspect infiltrated IV, no evidence of compartmental syndrome, CT of the arm showed Fluidlike density circumferentially about the distal forearm and hand compatible with edema, cellulitis, or combination of these. Nl WBC, no fever, CPK normal. Vascular surgery rec conservative management---swelling is signficantly down chronic HFeEF -continue metoprolol -Lasix as above Mood disorder -SSRI Abnormal MRI with concern for pancreatitic mass -study degraded by motion -CT w/o contrast--> mass not seen, noted prior liver lesion -repeat study on outpatient basis (triple phase CT ) DVT prophylaxis--no heparin d/t anemia, gib needing transfusion Full code dispo: likely STR when medically stable updating daughter on regular basis, over condition is guarded Quality Stroke Does the patient have a stroke diagnosis?: No VTE Prior VTE?: No VTE Risk Level:: Medical - moderate - high VTE Device Contraindication: Treatment Not Indicated VTE Drug Contraindication: N/A - Med Ordered
--- NOTE | 2024-06-22 10:43 | MHC.CM.PN ---
PER MD ROUNDS, PT IS NOT MEDICALLY CLEARED AND WILL LIKELY REMAIN INPT THROUGH THE WEEKEND DCP REMAINS RETURN TO [facility] VIA S
--- NOTE | 2024-06-22 11:17 | P.PNNP_ITS ---
Subjective Subjective Date of Service: 06/22/24 Interval history: Being treated for decompensated liver disease, anemia, and jae failure appear fluid overloaded, decrease urine output but seem improved overnight with IV lasix clinically she says she feels well, no encephalopathy. Anemia stable. Physical Exam 2 Vital Signs: Vital Signs: Last Vital Signs Temp 97.6 F 06/22/24 07:56 Pulse 63 06/22/24 08:15 Resp 18 06/22/24 08:15 BP 125/60 06/22/24 07:56 Pulse Ox 99 06/22/24 07:56 O2 Del Method Room Air 06/22/24 07:56 BMI result Body Mass Index 30.4 Neck: Neck: Yes supple Resp: Auscultation: clear to auscultation bilaterally Cardio: Palpation: no palpable S3 Heart sounds: no rubs GI: Palpation (GI): Soft to palpation Auscultation: normal bowel sounds Neuro: Motor exam (neuro): no asterixis Objective Data Labs 06/22/24 05:21 06/22/24 07:43 Labs: Laboratory Results - last 24 hr 06/21/24 06/22/24 06/22/24 17:13 05:21 07:43 WBC 8.9 8.3 RBC 2.40 L 2.20 L Hgb 8.8 L 8.0 L Hct 26.7 L 24.6 L MCV 111.3 H 111.8 H MCH 36.7 H 36.4 H MCHC 33.0 32.5 RDW 18.1 H 18.0 H Plt Count 147 L 143 L MPV 11.1 10.5 Absolute Nucleated RBC 0.000 0.000 Nucleated RBC % (auto) 0.0 0.0 PT 19.7 H INR 1.6 H Sodium 134 L 134 L Potassium 4.1 3.8 Chloride 109 H 108 Carbon Dioxide 15 L 18 L Anion Gap 14 12 BUN 36 H 38 H Creatinine 2.38 H 2.33 H Estim Creat Clear Calc 24.3 24.8 Estimated GFR 20 21 Random Glucose 131 H 116 H Calcium 9.0 8.7 Total Bilirubin 3.9 H Direct Bilirubin 1.7 H AST 36 H ALT 16 Alkaline Phosphatase 65 Total Protein 5.4 L Albumin 3.0 L Blood Type O Positive Antibody Screen NEGATIVE Microbiology Microbiology Results: Microbiology 06/14/24 18:13 Blood - Venous Blood Culture - Final No growth after 5 days. 06/14/24 18:14 Blood - Venous Blood Culture - Final No growth after 5 days. 06/11/24 23:16 Abdominal Fluid Gram Stain - Final 06/11/24 23:16 Abdominal Fluid Anaerobic Culture - Final NO GROWTH AFTER 5 DAYS 06/11/24 23:16 Abdominal Fluid Body Fluid Culture - Final No growth after 2 days Procedures Date of Service Date of Service: 06/22/24 Assessment & Plan Assessment and plan (1) SANDRA (acute kidney injury): Status: Resolved (2) CKD (chronic kidney disease) stage 3, GFR 30-59 ml/min: Status: Acute Plan 74-year-old woman with a history of cirrhosis as acute kidney injury superimposed on CKD. SANDRA due to hypoperfusion in the setting of cirrhosis. She was on Lasix and spironolactone in the setting of diarrhea which could have precipitated hypoperfusion. Creatinine unchnageed today Recommendation Octreotide Avoid hypotension Lasix 20 mg BIDIV Albumin Keep O >I Avoid aggressive diuresis She needs to stay on low-sodium diet Watch urine output Continue to avoid nephrotoxic agents. No indication for dialysis. Time Spent With Patient Time: Total time managing care of this patient today ____ minutes. Progress Note: Quality Stroke Does the patient have a stroke diagnosis?: No
[2024-06-22] MEDS: Lidocaine HCl 1 % MPF 5 ML VIAL SUBCUT (11:32)
[2024-06-22] MEDS: Furosemide 40 MG/4 ML VIAL IVPUSH ×2 (11:45→21:31)
[2024-06-22] MEDS: Acetaminophen 325 MG TABLET 650 MG PO ×2 (12:49→21:30)
--- NOTE | 2024-06-22 13:00 | PC.NURSE ---
Addendum entered by Teetee Ny RN 06/22/24 19:29: Patient back in the room at 1415, midline placed to R upper arm Original Note: Patient picked up to IR for midline placement
--- NOTE | 2024-06-22 14:09 | HO.MIDLINE ---
Midline Insertion MIDLINE INSERTION Diagnosis: Decompensated liver disease and renal failure Indication: IV access and labs draws Pertinent Labs: Reviewed Technique: Using sterile technique including cap and mask, glove and drape, the right arm was prepped and draped in the usual sterile fashion of full barrier technique with CHG. Using ultrasound guidance, the right brachial vein access was obtained in a single attempt by this RN. a 4 cymro 9 cm Non PASV midline was positioned. The procedure was performed in S272. Ultrasound was used to document vein patency and for needle entry. A formal ultrasound picture was recorded. V[employer] Administrator has released the line for use and it is currently dressed with a StatLock, Tegaderm, and CHG disc. Verification has been performed for blood return and line patency. The upper arm perpheral IV was removed in order to place the sterile dressing over the midline Arm Circumference: 25.5 cm Equipment: Bard PowerMidline Catheter Catheter Type: 4 cymro 9 cm Non Pasv Midline Lot #: [id number]
[2024-06-22] MEDS: cefTRIAXone sodium 1 GM in 0.9 % Sodium Chloride 50 ML IV (15:32)
[2024-06-22] MEDS: 0.9 % Sodium Chloride Flush 3 ML SYRINGE IVFLUSH (15:33)
[2024-06-22] MEDS: Heparin Sodium,Porcine Flush 50 UNITS/5 ML SYRINGE IVFLUSH ×2 (16:15→23:46)
[2024-06-22 21:05] LABS: Anion Gap 14 (12-20); Blood Urea Nitrogen 41 mg/dL (9-16); Calcium 8.8 mg/dL (8.4-10.2); Carbon Dioxide 18 mmol/L (22-29); Chloride 108 mmol/L (96-108); Creatinine Clr Calc Pharmacy 25.2; Estimated Glomerular Filt Rate 21; Glucose Random 135 mg/dL (60-115); Potassium 3.5 mmol/L (3.3-5.1); Sodium 136 mmol/L (135-145)
[2024-06-22] MEDS: Melatonin 3 MG TABLET 6 MG PO (21:29)
[2024-06-23 03:44] VITALS: BP 111/53; PULSE 65; RESP 16; TEMP 36.8; O2SAT 98
[2024-06-23] MEDS: Omeprazole 20 MG CAPSULE.DR PO (05:35)
[2024-06-23] MEDS: Octreotide Acetate 500 MCG in 0.9 % Sodium Chloride 500 ML 25.05 MCG IVCONT (05:35)
[2024-06-23 06:57] LABS: Anion Gap 13 (12-20); Blood Urea Nitrogen 42 mg/dL (9-16); Calcium 8.7 mg/dL (8.4-10.2); Carbon Dioxide 19 mmol/L (22-29); Chloride 108 mmol/L (96-108); Creatinine Clr Calc Pharmacy 24.7; Estimated Glomerular Filt Rate 20; Glucose Random 120 mg/dL (60-115); Potassium 3.7 mmol/L (3.3-5.1); Sodium 136 mmol/L (135-145)
[2024-06-23] MEDS: Albumin Human 25 % 100 ML IV ×2 (07:56→09:10)
[2024-06-23 08:00] VITALS: BP 104/54; PULSE 64; RESP 16; TEMP 36.3; O2SAT 99
[2024-06-23] MEDS: Fluticasone/Umeclidinium/Vilanterol 200/62.5/25 BLST.W.DEV 1 PUFF INHALE (08:02)
[2024-06-23] MEDS: Cholecalciferol (Vitamin D3) 25 MCG TABLET 50 MCG PO (09:10)
[2024-06-23] MEDS: Midodrine HCl 5 MG TABLET PO ×3 (09:10→20:20)
[2024-06-23] MEDS: Gabapentin 300 MG CAPSULE PO ×2 (09:10→20:20)
[2024-06-23] MEDS: Multivitamin TABLET 1 TAB PO (09:10)
[2024-06-23] MEDS: Metoprolol Succinate ER 25 MG TAB.ER.24H PO (09:10)
[2024-06-23] MEDS: Acetaminophen 325 MG TABLET 650 MG PO ×2 (09:10→20:20)
[2024-06-23] MEDS: rifAXIMin 550 MG TABLET PO ×2 (09:10→20:20)
[2024-06-23] MEDS: Heparin Sodium,Porcine Flush 50 UNITS/5 ML SYRINGE IVFLUSH ×2 (09:11→15:34)
[2024-06-23] MEDS: FLUoxetine HCl 20 MG CAPSULE 40 MG PO (09:11)
--- NOTE | 2024-06-23 10:13 | P.PNIM_ITS ---
Subjective Subjective Date of Service: 06/23/24 Interval History: Being treated for decompensated liver disease, anemia, and jae failure appear fluid overloaded, decrease urine output but seem improved overnight with IV lasix clinically she says she feels well, no encephalopathy. Anemia stable. Physical Exam 2 Vital Signs: Vital Signs: Last Vital Signs Temp 97.4 F 06/23/24 08:00 Pulse 64 06/23/24 08:00 Resp 16 06/23/24 08:00 BP 104/54 L 06/23/24 08:00 Pulse Ox 99 06/23/24 08:00 O2 Del Method Room Air 06/23/24 08:00 BMI result Body Mass Index 30.4 Const: Other: General: AO X 3, no acute distress Resp: CTA bilateral CVS: S1,S2,RRR, 3+ pitting edema in legs GI: +BS, NT, distention with signs of ascietes; no asterixis Skin: No rash ext: the left arm is less swollen with echymosis, otherwise normal colar, not tense, able to move--swelling overall going down +normal radial and ulnar pulsesNeuro: m otor grossly intact Psych: appropriate affec Objective Data Active Medications Acetaminophen (Acetaminophen 325 Mg Tablet) 650 mg PO Q6H PRN PRN Reason: Pain, Mild (Pain Scale 1-3), fever or headache Last Admin: 06/23/24 09:10 Dose: 650 mg Documented By: EDMUNDO Albuterol Sulfate (Albuterol Sulfate 90 Mcg 8 Gm Inhaler) 2 puff INHALE RQID PRN PRN Reason: for wheezing Calcium Carbonate (Calcium Carbonate 750 Mg Tab.Chew) 750 mg PO Q4H PRN PRN Reason: Heartburn Fluoxetine HCl (Fluoxetine Hcl 20 Mg Capsule) 40 mg PO DAILY [facility] Last Admin: 06/23/24 09:11 Dose: 40 mg Documented By: EDMUNDO Fluticasone/Umeclidinium/Vilanterol (Fluticasone/Umeclidinium/Vilanterol 200/62.5/25 Blst.W.Dev) 1 puff INHALE RDAILY [facility] Last Admin: 06/23/24 08:02 Dose: 1 puff Documented By: COSTA Furosemide (Furosemide 40 Mg/4 Ml Vial) 40 mg IVPUSH Q12H [facility]; Protocol Last Admin: 06/22/24 21:31 Dose: 40 mg Documented By: ROMAN Gabapentin (Gabapentin 300 Mg Capsule) 300 mg PO BID [facility] Last Admin: 06/23/24 09:10 Dose: 300 mg Documented By: EDMUNDO Heparin Sodium (Porcine) (Heparin Sodium,Porcine Flush 50 Units/5 Ml Syringe) 50 units IVFLUSH QSHIFT [facility] Last Admin: 06/23/24 09:11 Dose: 50 units Documented By: EDMUNDO Octreotide Acetate 500 mcg/ (Sodium Chloride) 501 mls @ 25.05 mls/hr IVCONT .Q20H [facility] Last Admin: 06/23/24 05:35 Dose: 25 mcg/hr, 25.05 mls/hr Documented By: ROMAN Ceftriaxone Sodium 1 gm/ (Sodium Chloride) 50 mls @ 100 mls/hr IV Q24H [facility] Last Infusion: 06/22/24 16:19 Dose: Infused Documented By: INOCENTE Magnesium Hydroxide (Milk Of Magnesia 30 Ml Oral.Susp) 30 ml PO DAILY PRN PRN Reason: Constipation Melatonin (Melatonin 3 Mg Tablet) 6 mg PO BEDTIME PRN PRN Reason: Insomnia Last Admin: 06/22/24 21:29 Dose: 6 mg Documented By: ROMAN Metoprolol Succinate (Metoprolol Succinate Er 25 Mg Tab.Er.24h) 25 mg PO DAILY [facility]; Protocol Last Admin: 06/23/24 09:10 Dose: 25 mg Documented By: EDMUNDO Midodrine (Midodrine Hcl 5 Mg Tablet) 5 mg PO TID [facility] Last Admin: 06/23/24 09:10 Dose: 5 mg Documented By: EDMUNDO Multivitamins/Vitamin C (Multivitamin Tablet) 1 tab PO DAILY [facility] Last Admin: 06/23/24 09:10 Dose: 1 tab Documented By: EDMUNDO Omeprazole (Omeprazole 20 Mg Capsule.) 20 mg PO DAILY@0630 [facility] Last Admin: 06/23/24 05:35 Dose: 20 mg Documented By: ROMAN Ondansetron HCl (Ondansetron Hcl 4 Mg/2 Ml Vial) 4 mg IVPUSH Q8H PRN PRN Reason: Nausea and Vomiting Last Admin: 06/13/24 17:22 Dose: 4 mg Documented By: TEVIN Rifaximin (Rifaximin 550 Mg Tablet) 550 mg PO BID [facility] Last Admin: 06/23/24 09:10 Dose: 550 mg Documented By: EDMUNDO Sodium Chloride (0.9 % Sodium Chloride Flush 3 Ml Syringe) 3 ml IVFLUSH QSHIFT [facility] Last Admin: 06/23/24 08:00 Dose: Not Given Documented By: EDMUNDO Non-Admin Reason: IV Running Vitamin D (Cholecalciferol (Vitamin D3) 25 Mcg Tablet) 50 mcg PO DAILY [facility] Last Admin: 06/23/24 09:10 Dose: 50 mcg Documented By: EDMUNDO Labs 06/24/24 05:55 06/24/24 05:55 Labs: Laboratory Results - last 24 hr 06/22/24 06/23/24 20:44 05:42 Hold Purple Top SEE NOTE Anion Gap 14 13 Estim Creat Clear Calc 25.2 24.7 Estimated GFR 21 20 Random Glucose 135 H 120 H Calcium 8.8 8.7 Assessment and Plan (1) SANDRA (acute kidney injury): Status: Resolved (2) Hematoma of left upper extremity: Status: Acute (3) Abdominal ascites: Status: Acute (4) Decompensation of cirrhosis of liver: Status: Acute Plan 74/F PMH etoh dependence in remission, etoh cirrhosis, copd, hfref, htn, breast ca, mood disorder, Hepatic encephalopathy--resolved -continue Lactulose 20 bid -continue Rifaximin 500 bid -last ammonia level 56 anemia, +NG was lavage, no active bleed, H/H stable -avoid heparin, ASA -IV PPI to now PO -transfused 1 unit on 06/15, hgbn 8.4 -Outpatient EGD per GI thrombocytopenia--chronic d/t liver disease, stable decompensated cirrhosis of the liver with ascietes -Paracentesis done 06/13 with removal of 3L no evidence of -paracentesis again today -continue midodrine, hold if BP high -LFTs are stable, Tbili down, INR stable around 1.6 if worsening may need to be transfer to liver a liver center -empiric Abx (ceftriaxone)- started 06/14 and stopped 06/18 given no evidence of infection -Triple phase CT to be done on outpatient basis once renal function is stable -on octreotide + albumin per gi, will check with gi about continuing. CKD3B, SANDRA, worsening creatine, ? hepato renal vs cardio renal given fluid overloaded status with -14 liters, elevated BNP and worsening with IVF -stop IVF, BNP 610 -according to record + 20 liters -Urine output seems better with IV diuretics, continue Lasix at 40 bid -track I/O closely with cuellar -Neprhology following NAG, metabolic acidosis--likely from liver disease and CKD -Monitor, if lower may need bicab replacement COPD--no exacerbation -Inhalers PRN Left arm swelling, she denies falling on to that side..the appearance is that of hematoma, has good pulse coloration, no cold, suspect infiltrated IV, no evidence of compartmental syndrome, CT of the arm showed Fluidlike density circumferentially about the distal forearm and hand compatible with edema, cellulitis, or combination of these. Nl WBC, no fever, CPK normal. Vascular surgery rec conservative management---swelling is signficantly down chronic HFeEF -continue metoprolol -Lasix as above Mood disorder -SSRI Abnormal MRI with concern for pancreatitic mass -study degraded by motion -CT w/o contrast--> mass not seen, noted prior liver lesion -repeat study on outpatient basis (triple phase CT ) DVT prophylaxis--no heparin d/t anemia, gib needing transfusion Full code dispo: likely STR when medically stable updating daughter on regular basis, over condition is guarded Quality Stroke Does the patient have a stroke diagnosis?: No VTE Prior VTE?: No VTE Risk Level:: Medical - moderate - high VTE Device Contraindication: Treatment Not Indicated VTE Drug Contraindication: N/A - Med Ordered
[2024-06-23 11:22] VITALS: BP 141/63; PULSE 61
[2024-06-23] MEDS: Furosemide 40 MG/4 ML VIAL IVPUSH (11:25)
[2024-06-23] MEDS: Spironolactone 25 MG TABLET PO (11:29)
[2024-06-23] MEDS: cefTRIAXone sodium 1 GM in 0.9 % Sodium Chloride 50 ML IV (15:34)
[2024-06-23 15:58] VITALS: BP 122/56; PULSE 63; RESP 20; TEMP 36.1; O2SAT 99
[2024-06-23 19:56] VITALS: BP 135/61; PULSE 62; RESP 18; TEMP 36.1; O2SAT 99
[2024-06-23] MEDS: Melatonin 3 MG TABLET 6 MG PO (20:20)
[2024-06-23 21:45] LABS: Anion Gap 13 (12-20); Blood Urea Nitrogen 42 mg/dL (9-16); Calcium 8.6 mg/dL (8.4-10.2); Carbon Dioxide 20 mmol/L (22-29); Chloride 110 mmol/L (96-108); Creatinine Clr Calc Pharmacy 23.8; Estimated Glomerular Filt Rate 20; Glucose Random 146 mg/dL (60-115); Potassium 3.8 mmol/L (3.3-5.1); Sodium 139 mmol/L (135-145)
[2024-06-24] VITALS (8 sets, daily range): BP systolic 107–145; BP diastolic 54–75; PULSE 54–87; RESP 12–18; TEMP 35.8–36.4; O2SAT 93–99
[2024-06-24] MEDS: Octreotide Acetate 500 MCG in 0.9 % Sodium Chloride 500 ML 25.05 MCG IVCONT ×2 (00:58→20:29)
[2024-06-24] MEDS: Omeprazole 20 MG CAPSULE.DR PO (05:57)
[2024-06-24 07:14] LABS: Hematocrit 22.6 % (37.0-47.0); Hemoglobin 7.6 g/dl (12.0-16.0); Mean Corpuscular HGB Conc 33.6 g/dl (31.0-35.0); Mean Corpuscular Hemoglobin 37.3 pg (27.0-33.0); Mean Platelet Volume 10.7 fL (9.4-12.3); Platelet Count 128 X10*3/uL (160-400); Red Blood Count 2.04 X10*6/uL (4.20-5.50); Red Cell Distribution Width 18.2 % (11.0-16.0); White Blood Count 7.8 X10*3/uL (4.8-10.8)
[2024-06-24 07:16] LABS: Anion Gap 14 (12-20); Blood Urea Nitrogen 42 mg/dL (9-16); Calcium 8.5 mg/dL (8.4-10.2); Carbon Dioxide 16 mmol/L (22-29); Chloride 110 mmol/L (96-108); Creatinine Clr Calc Pharmacy 24.7; Estimated Glomerular Filt Rate 20; Glucose Random 110 mg/dL (60-115); Mean Corpuscular Volume 110.8 fL (80.0-98.0); Sodium 136 mmol/L (135-145)
[2024-06-24] MEDS: Gabapentin 300 MG CAPSULE PO ×2 (08:13→20:27)
[2024-06-24] MEDS: Multivitamin TABLET 1 TAB PO (08:13)
[2024-06-24] MEDS: Midodrine HCl 5 MG TABLET PO ×3 (08:13→20:27)
[2024-06-24] MEDS: Metoprolol Succinate ER 25 MG TAB.ER.24H PO (08:13)
[2024-06-24] MEDS: FLUoxetine HCl 20 MG CAPSULE 40 MG PO (08:13)
[2024-06-24] MEDS: rifAXIMin 550 MG TABLET PO (08:13)
[2024-06-24] MEDS: Cholecalciferol (Vitamin D3) 25 MCG TABLET 50 MCG PO (08:14)
[2024-06-24] MEDS: Spironolactone 25 MG TABLET PO (08:14)
[2024-06-24] MEDS: Heparin Sodium,Porcine Flush 50 UNITS/5 ML SYRINGE IVFLUSH ×2 (08:37→15:26)
--- NOTE | 2024-06-24 09:45 | P.PNIM_ITS ---
Subjective Subjective Date of Service: 06/24/24 Interval History: Being treated for decompensated liver disease, anemia, and jae failure appear fluid overloaded, decrease urine output but seem improved overnight with IV lasix clinically she says she feels well, no encephalopathy. Anemia stable. Physical Exam 2 Vital Signs: Vital Signs: Last Vital Signs Temp 97.5 F 06/24/24 09:42 Pulse 87 06/24/24 09:42 Resp 14 06/24/24 09:42 BP 145/65 H 06/24/24 09:42 Pulse Ox 99 06/24/24 08:00 O2 Del Method Room Air 06/24/24 08:00 BMI result Body Mass Index 30.4 Const: Other: General: AO X 3, no acute distress Resp: CTA bilateral CVS: S1,S2,RRR, 3+ pitting edema in legs GI: +BS, NT, distention with signs of ascietes; no asterixis Skin: No rash ext: the left arm is less swollen with echymosis, otherwise normal colar, not tense, able to move--swelling overall going down +normal radial and ulnar pulsesNeuro: m otor grossly intact Psych: appropriate affec Objective Data Active Medications Acetaminophen (Acetaminophen 325 Mg Tablet) 650 mg PO Q6H PRN PRN Reason: Pain, Mild (Pain Scale 1-3), fever or headache Last Admin: 06/23/24 20:20 Dose: 650 mg Documented By: ROMAN Albuterol Sulfate (Albuterol Sulfate 90 Mcg 8 Gm Inhaler) 2 puff INHALE RQID PRN PRN Reason: for wheezing Calcium Carbonate (Calcium Carbonate 750 Mg Tab.Chew) 750 mg PO Q4H PRN PRN Reason: Heartburn Fluoxetine HCl (Fluoxetine Hcl 20 Mg Capsule) 40 mg PO DAILY [facility] Last Admin: 06/24/24 08:13 Dose: 40 mg Documented By: EDMUNDO Fluticasone/Umeclidinium/Vilanterol (Fluticasone/Umeclidinium/Vilanterol 200/62.5/25 Blst.W.Dev) 1 puff INHALE RDAILY [facility] Last Admin: 06/23/24 08:02 Dose: 1 puff Documented By: COSTA Furosemide (Furosemide 40 Mg/4 Ml Vial) 40 mg IVPUSH Q12H [facility]; Protocol Last Admin: 06/23/24 22:03 Dose: Not Given Documented By: ROMAN Non-Admin Reason: held per Gabapentin (Gabapentin 300 Mg Capsule) 300 mg PO BID [facility] Last Admin: 06/24/24 08:13 Dose: 300 mg Documented By: EDMUNDO Heparin Sodium (Porcine) (Heparin Sodium,Porcine Flush 50 Units/5 Ml Syringe) 50 units IVFLUSH QSHIFT [facility] Last Admin: 06/24/24 08:37 Dose: 50 units Documented By: EDMUNDO Octreotide Acetate 500 mcg/ (Sodium Chloride) 501 mls @ 25.05 mls/hr IVCONT .Q20H [facility] Last Admin: 06/24/24 00:58 Dose: 25 mcg/hr, 25.05 mls/hr Documented By: ROMAN Ceftriaxone Sodium 1 gm/ (Sodium Chloride) 50 mls @ 100 mls/hr IV Q24H [facility] Last Infusion: 06/23/24 16:18 Dose: Infused Documented By: EDMUNDO Magnesium Hydroxide (Milk Of Magnesia 30 Ml Oral.Susp) 30 ml PO DAILY PRN PRN Reason: Constipation Melatonin (Melatonin 3 Mg Tablet) 6 mg PO BEDTIME PRN PRN Reason: Insomnia Last Admin: 06/23/24 20:20 Dose: 6 mg Documented By: ROMAN Metoprolol Succinate (Metoprolol Succinate Er 25 Mg Tab.Er.24h) 25 mg PO DAILY [facility]; Protocol Last Admin: 06/24/24 08:13 Dose: 25 mg Documented By: EDMUNDO Midodrine (Midodrine Hcl 5 Mg Tablet) 5 mg PO TID [facility] Last Admin: 06/24/24 08:13 Dose: 5 mg Documented By: EDMUNDO Multivitamins/Vitamin C (Multivitamin Tablet) 1 tab PO DAILY [facility] Last Admin: 06/24/24 08:13 Dose: 1 tab Documented By: EDMUNDO Omeprazole (Omeprazole 20 Mg Capsule.) 20 mg PO DAILY@0630 [facility] Last Admin: 06/24/24 05:57 Dose: 20 mg Documented By: ROMAN Ondansetron HCl (Ondansetron Hcl 4 Mg/2 Ml Vial) 4 mg IVPUSH Q8H PRN PRN Reason: Nausea and Vomiting Last Admin: 06/13/24 17:22 Dose: 4 mg Documented By: TEVNI Rifaximin (Rifaximin 550 Mg Tablet) 550 mg PO BID [facility] Last Admin: 06/24/24 08:13 Dose: 550 mg Documented By: EDMUNDO Sodium Chloride (0.9 % Sodium Chloride Flush 3 Ml Syringe) 3 ml IVFLUSH QSHIFT [facility] Last Admin: 06/24/24 08:36 Dose: Not Given Documented By: EDMUNDO Non-Admin Reason: IV Running Spironolactone (Spironolactone 25 Mg Tablet) 25 mg PO DAILY [facility]; Protocol Last Admin: 06/24/24 08:14 Dose: 25 mg Documented By: EDMUNDO Vitamin D (Cholecalciferol (Vitamin D3) 25 Mcg Tablet) 50 mcg PO DAILY [facility] Last Admin: 06/24/24 08:14 Dose: 50 mcg Documented By: EDMUNDO Labs 06/25/24 07:41 06/25/24 07:41 Labs: Laboratory Results - last 24 hr 06/21/24 06/23/24 06/24/24 17:13 21:25 05:55 MCV 110.8 H MCH 37.3 H MCHC 33.6 RDW 18.2 H Plt Count 128 L MPV 10.7 Absolute Nucleated RBC 0.000 Nucleated RBC % (auto) 0.0 Hold Purple Top SEE NOTE Anion Gap 13 14 Estim Creat Clear Calc 23.8 24.7 Estimated GFR 20 20 Random Glucose 146 H 110 Calcium 8.6 8.5 Blood Type O Positive Antibody Screen NEGATIVE Crossmatch See Detail Assessment and Plan (1) SANDRA (acute kidney injury): Status: Resolved (2) Hematoma of left upper extremity: Status: Acute (3) Abdominal ascites: Status: Acute (4) Decompensation of cirrhosis of liver: Status: Acute Plan 74/F PMH etoh dependence in remission, etoh cirrhosis, copd, hfref, htn, breast ca, mood disorder, Hepatic encephalopathy--resolved -continue Lactulose 20 bid -continue Rifaximin 500 bid -last ammonia level 56 anemia, +NG was lavage , no active bleed, H/H stable -avoid heparin, ASA. -H/H is down today -IV PPI to now PO -transfused 1 unit on 06/15, hgbn 8.4. Transfuse 1 unit today -Outpatient EGD per GI thrombocytopenia--chronic d/t liver disease, stable decompensated cirrhosis of the liver with ascietes -Paracentesis done 06/13 with removal of 3L no evidence of -paracentesis again today -continue midodrine, hold if BP high -LFTs are stable, Tbili down, INR stable around 1.6 if worsening may need to be transfer to liver a liver center -empiric Abx (ceftriaxone)- started 06/14 and stopped 06/18 given no evidence of infection -Triple phase CT to be done on outpatient basis once renal function is stable -on octreotide + albumin per gi, will check with gi about continuing. CKD3B, SANDRA, worsening creatine, ? hepato renal vs cardio renal given fluid overloaded status with -14 liters, elevated BNP and worsening with IVF -stop IVF, BNP 610 -according to record + 20 liters -Urine output seems better with IV diuretics, continue Lasix at 40 bid -track I/O closely with cuellar -Neprhology following NAG, metabolic acidosis--likely from liver disease and CKD -Monitor, if lower may need bicab replacement COPD--no exacerbation -Inhalers PRN Left arm swelling, she denies falling on to that side..the appearance is that of hematoma, has good pulse coloration, no cold, suspect infiltrated IV, no evidence of compartmental syndrome, CT of the arm showed Fluidlike density circumferentially about the distal forearm and hand compatible with edema, cellulitis, or combination of these. Nl WBC, no fever, CPK normal. Vascular surgery rec conservative management---swelling is signficantly down chronic HFeEF -continue metoprolol -Lasix as above Mood disorder -SSRI Abnormal MRI with concern for pancreatitic mass -study degraded by motion -CT w/o contrast--> mass not seen, noted prior liver lesion -repeat study on outpatient basis (triple phase CT ) DVT prophylaxis--no heparin d/t anemia, gib needing transfusion Full code dispo: likely STR when medically stable updating daughter on regular basis, over condition is guarded Quality Stroke Does the patient have a stroke diagnosis?: No VTE Prior VTE?: No VTE Risk Level:: Medical - moderate - high VTE Device Contraindication: Treatment Not Indicated VTE Drug Contraindication: N/A - Med Ordered
[2024-06-24] MEDS: Furosemide 40 MG/4 ML VIAL IVPUSH ×2 (12:50→20:27)
[2024-06-24] MEDS: cefTRIAXone sodium 1 GM in 0.9 % Sodium Chloride 50 ML IV (15:25)
[2024-06-24 17:44] LABS: Anion Gap 12 (12-20); Blood Urea Nitrogen 43 mg/dL (9-16); Calcium 8.7 mg/dL (8.4-10.2); Carbon Dioxide 21 mmol/L (22-29); Chloride 110 mmol/L (96-108); Creatinine Clr Calc Pharmacy 23.3; Estimated Glomerular Filt Rate 19; Glucose Random 137 mg/dL (60-115); Potassium 3.7 mmol/L (3.3-5.1); Sodium 139 mmol/L (135-145)
[2024-06-24] MEDS: Acetaminophen 325 MG TABLET 650 MG PO (20:26)
[2024-06-24] MEDS: Melatonin 3 MG TABLET 6 MG PO (20:27)
[2024-06-25 04:00] VITALS: BP 113/56; PULSE 63; RESP 18; TEMP 36; O2SAT 98
[2024-06-25] MEDS: Omeprazole 20 MG CAPSULE.DR PO (06:23)
[2024-06-25] MEDS: Fluticasone/Umeclidinium/Vilanterol 200/62.5/25 BLST.W.DEV 1 PUFF INHALE (07:34)
[2024-06-25 07:36] VITALS: PULSE 64; RESP 14; O2SAT 94
[2024-06-25 07:47] VITALS: BP 125/56; PULSE 62; RESP 18; TEMP 36; O2SAT 98
[2024-06-25] MEDS: Furosemide 40 MG/4 ML VIAL IVPUSH (07:52)
[2024-06-25] MEDS: Metoprolol Succinate ER 25 MG TAB.ER.24H PO (07:52)
[2024-06-25] MEDS: Spironolactone 25 MG TABLET PO (07:52)
[2024-06-25] MEDS: Midodrine HCl 5 MG TABLET PO ×3 (07:52→21:30)
[2024-06-25] MEDS: Cholecalciferol (Vitamin D3) 25 MCG TABLET 50 MCG PO (07:53)
[2024-06-25] MEDS: Multivitamin TABLET 1 TAB PO (07:53)
[2024-06-25] MEDS: FLUoxetine HCl 20 MG CAPSULE 40 MG PO (07:53)
[2024-06-25] MEDS: Gabapentin 300 MG CAPSULE PO ×2 (07:53→21:30)
[2024-06-25 08:00] LABS: Hematocrit 25.8 % (37.0-47.0); Hemoglobin 8.7 g/dl (12.0-16.0); Mean Corpuscular HGB Conc 33.7 g/dl (31.0-35.0); Mean Corpuscular Hemoglobin 36.4 pg (27.0-33.0); Mean Corpuscular Volume 107.9 fL (80.0-98.0); Mean Platelet Volume 10.8 fL (9.4-12.3); Platelet Count 140 X10*3/uL (160-400); Red Blood Count 2.39 X10*6/uL (4.20-5.50); Red Cell Distribution Width 20.9 % (11.0-16.0); White Blood Count 8.7 X10*3/uL (4.8-10.8)
[2024-06-25 08:24] LABS: Anion Gap 11 (12-20); Blood Urea Nitrogen 41 mg/dL (9-16); Calcium 7.8 mg/dL (8.4-10.2); Carbon Dioxide 20 mmol/L (22-29); Chloride 112 mmol/L (96-108); Estimated Glomerular Filt Rate 22; Glucose Random 100 mg/dL (60-115); Potassium 3.6 mmol/L (3.3-5.1); Sodium 139 mmol/L (135-145)
[2024-06-25] MEDS: Lactulose 20 GM/30 ML SOLUTION 30 GM PO ×2 (09:18→21:32)
--- NOTE | 2024-06-25 09:25 | PC.NURSE ---
f/c removed at this time
--- NOTE | 2024-06-25 09:45 | HO.PM.IMPN ---
Subjective Subjective Date of Service: 06/25/24 Interval History: Being treated for decompensated liver disease, anemia, and jae failure overall doing well, in good spirit, renal function improve, able to ambulate with staff Physical Exam Vital Signs: Vital Signs: Last Vital Signs Temp 96.8 F 06/25/24 07:47 Pulse 62 06/25/24 07:47 Resp 18 06/25/24 07:47 BP 125/56 L 06/25/24 07:47 Pulse Ox 98 06/25/24 07:47 O2 Del Method Room Air 06/25/24 07:47 BMI result Body Mass Index 30.4 Const: Other: General: AO X 3, no acute distress Resp: CTA bilateral CVS: S1,S2,RRR, 2+ pitting edema in legs GI: +BS, NT, distention with signs of ascietes; no asterixis Skin: No rash ext: the left arm is less swollen with echymosis, otherwise normal colar, not tense, able to move--swelling overall going down +normal radial and ulnar pulsesNeuro: motor grossly intact Psych: appropriate affec Objective Data Active Medications Acetaminophen (Acetaminophen 325 Mg Tablet) 650 mg PO Q6H PRN PRN Reason: Pain, Mild (Pain Scale 1-3), fever or headache Last Admin: 06/24/24 20:26 Dose: 650 mg Documented By: SADA Albuterol Sulfate (Albuterol Sulfate 90 Mcg 8 Gm Inhaler) 2 puff INHALE RQID PRN PRN Reason: for wheezing Calcium Carbonate (Calcium Carbonate 750 Mg Tab.Chew) 750 mg PO Q4H PRN PRN Reason: Heartburn Fluoxetine HCl (Fluoxetine Hcl 20 Mg Capsule) 40 mg PO DAILY [facility] Last Admin: 06/25/24 07:53 Dose: 40 mg Documented By: SAMEER Fluticasone/Umeclidinium/Vilanterol (Fluticasone/Umeclidinium/Vilanterol 200/62.5/25 Blst.W.Dev) 1 puff INHALE RDAILY [facility] Last Admin: 06/25/24 07:34 Dose: 1 puff Documented By: COSTA Furosemide (Furosemide 40 Mg/4 Ml Vial) 40 mg IVPUSH DAILY [facility]; Protocol Last Admin: 06/25/24 07:52 Dose: 40 mg Documented By: SAMEER Gabapentin (Gabapentin 300 Mg Capsule) 300 mg PO BID [facility] Last Admin: 06/25/24 07:53 Dose: 300 mg Documented By: SAMEER Heparin Sodium (Porcine) (Heparin Sodium,Porcine Flush 50 Units/5 Ml Syringe) 50 units IVFLUSH QSHIFT [facility] Last Admin: 06/25/24 07:46 Dose: Not Given Documented By: SAMEER Non-Admin Reason: IV Running Octreotide Acetate 500 mcg/ (Sodium Chloride) 501 mls @ 25.05 mls/hr IVCONT .Q20H [facility] Last Admin: 06/24/24 20:29 Dose: 25 mcg/hr, 25.05 mls/hr Documented By: SADA Ceftriaxone Sodium 1 gm/ (Sodium Chloride) 50 mls @ 100 mls/hr IV Q24H [facility] Last Infusion: 06/24/24 16:00 Dose: Infused Documented By: EDMUNDO Lactulose (Lactulose 20 Gm/30 Ml Solution) 30 gm PO BID [facility] Last Admin: 06/25/24 09:18 Dose: 30 gm Documented By: SAMEER Magnesium Hydroxide (Milk Of Magnesia 30 Ml Oral.Susp) 30 ml PO DAILY PRN PRN Reason: Constipation Melatonin (Melatonin 3 Mg Tablet) 6 mg PO BEDTIME PRN PRN Reason: Insomnia Last Admin: 06/24/24 20:27 Dose: 6 mg Documented By: SADA Metoprolol Succinate (Metoprolol Succinate Er 25 Mg Tab.Er.24h) 25 mg PO DAILY [facility]; Protocol Last Admin: 06/25/24 07:52 Dose: 25 mg Documented By: SAMEER Midodrine (Midodrine Hcl 5 Mg Tablet) 5 mg PO TID [facility] Last Admin: 06/25/24 07:52 Dose: 5 mg Documented By: SAMEER Multivitamins/Vitamin C (Multivitamin Tablet) 1 tab PO DAILY [facility] Last Admin: 06/25/24 07:53 Dose: 1 tab Documented By: SAMEER Omeprazole (Omeprazole 20 Mg Capsule.) 20 mg PO DAILY@0630 [facility] Last Admin: 06/25/24 06:23 Dose: 20 mg Documented By: TREVON Ondansetron HCl (Ondansetron Hcl 4 Mg/2 Ml Vial) 4 mg IVPUSH Q8H PRN PRN Reason: Nausea and Vomiting Last Admin: 06/13/24 17:22 Dose: 4 mg Documented By: TEVIN Sodium Chloride (0.9 % Sodium Chloride Flush 3 Ml Syringe) 3 ml IVFLUSH QSHIFT [facility] Last Admin: 06/25/24 07:46 Dose: Not Given Documented By: SAMEER Non-Admin Reason: IV Running Spironolactone (Spironolactone 25 Mg Tablet) 25 mg PO DAILY [facility]; Protocol Last Admin: 06/25/24 07:52 Dose: 25 mg Documented By: SAMEER Vitamin D (Cholecalciferol (Vitamin D3) 25 Mcg Tablet) 50 mcg PO DAILY [facility] Last Admin: 06/25/24 07:53 Dose: 50 mcg Documented By: SAMEER Labs 06/25/24 07:41 06/25/24 07:41 Labs: Laboratory Results - last 24 hr 06/21/24 06/24/24 06/25/24 17:13 17:22 07:41 MCV 107.9 H MCH 36.4 H MCHC 33.7 RDW 20.9 H Plt Count 140 L MPV 10.8 Absolute Nucleated RBC 0.000 Nucleated RBC % (auto) 0.0 Anion Gap 12 11 L Estim Creat Clear Calc 23.3 26.0 Estimated GFR 19 22 Random Glucose 137 H 100 Calcium 8.7 7.8 L D Crossmatch See Detail Assessment and Plan (1) SANDRA (acute kidney injury): Status: Resolved (2) Hematoma of left upper extremity: Status: Acute (3) Abdominal ascites: Status: Acute (4) Decompensation of cirrhosis of liver: Status: Acute Plan 74/F PMH etoh dependence in remission, etoh cirrhosis, copd, hfref, htn, breast ca, mood disorder, Hepatic encephalopathy--resolved -continue Lactulose 30 bid, hold for diarrhea -continue Rifaximin 500 bid -last ammonia level 56 anemia, +NGT lave on admission, , no active bleed, H/H stable -avoid heparin, ASA. -H/H is down has trended down and transfused, ? frequent blood d -continue -transfused 1 unit on 06/15 and 1 unit on 06/24 -Outpatient EGD per GI thrombocytopenia--chronic d/t liver disease, stable decompensated cirrhosis of the liver with ascietes -Paracentesis done 06/13 with removal of 3L no evidence of -paracentesis again 05/25, 3L and 01/20, 2L -continue midodrine, hold if BP high -LFTs are stable, Tbili down, INR stable around 1.6 if worsening may need to be transfer to liver a liver center -empiric Abx (ceftriaxone)- change to ceftin 500 daily starting tomorrow -Triple phase CT to be done on outpatient basis once renal function is stable -on octreotide + albumin per gi, will check with gi about continuing. CKD3B, SANDRA, worsening creatine, ? hepato renal vs cardio renal given fluid overloaded status with -14 liters, elevated BNP and worsening with IVF -stop IVF, BNP 610 -according to record + 18 L positive, I/O has not been properly documented -continue Lasix at present dose -recomve cuellar, -Neprhology following NAG, metabolic acidosis--likely from liver disease and CKD--Bicab 20 -Monitor, if lower may need bicab replacement COPD--no exacerbation -Inhalers PRN Left arm swelling, she denies falling on to that side..the appearance is that of hematoma, has good pulse coloration, no cold, suspect infiltrated IV, no evidence of compartmental syndrome, CT of the arm showed Fluidlike density circumferentially about the distal forearm and hand compatible with edema, cellulitis, or combination of these. Nl WBC, no fever, CPK normal. Vascular surgery rec conservative management---swelling is signficantly down chronic HFeEF -continue metoprolol -Lasix as above Mood disorder -SSRI Abnormal MRI with concern for pancreatitic mass -study degraded by motion -CT w/o contrast--> mass not seen, noted prior liver lesion -repeat study on outpatient basis (triple phase CT ) DVT prophylaxis--no heparin d/t anemia, gib needing transfusion, baseline elevated inr compression device Full code dispo: likely STR when medically stable updating daughter on regular basis, over condition is guarded Quality Stroke Does the patient have a stroke diagnosis?: No VTE Prior VTE?: No VTE Risk Level:: Medical - moderate - high VTE Device Contraindication: Treatment Not Indicated VTE Drug Contraindication: N/A - Med Ordered
[2024-06-25 15:31] VITALS: BP 130/59; PULSE 58; RESP 16; TEMP 36.7; O2SAT 99
[2024-06-25] MEDS: cefTRIAXone sodium 1 GM in 0.9 % Sodium Chloride 50 ML IV (16:23)
[2024-06-25] MEDS: Heparin Sodium,Porcine Flush 50 UNITS/5 ML SYRINGE IVFLUSH ×2 (17:00→23:35)
[2024-06-25] MEDS: 0.9 % Sodium Chloride Flush 3 ML SYRINGE IVFLUSH ×2 (17:24→23:38)
[2024-06-25 19:30] VITALS: BP 134/60; PULSE 60; RESP 20; TEMP 36.7; O2SAT 97
[2024-06-25] MEDS: Melatonin 3 MG TABLET 6 MG PO (21:30)
[2024-06-26 01:37] VITALS: BP 119/52; PULSE 69; RESP 17; TEMP 36.1; O2SAT 98
[2024-06-26] MEDS: Acetaminophen 325 MG TABLET 650 MG PO ×2 (05:44→21:38)
[2024-06-26] MEDS: Omeprazole 20 MG CAPSULE.DR PO (05:45)
[2024-06-26 06:15] LABS: Hematocrit 28.5 % (37.0-47.0); Hemoglobin 9.5 g/dl (12.0-16.0); Mean Corpuscular HGB Conc 33.3 g/dl (31.0-35.0); Mean Corpuscular Hemoglobin 36.3 pg (27.0-33.0); Mean Corpuscular Volume 108.8 fL (80.0-98.0); Mean Platelet Volume 10.7 fL (9.4-12.3); Platelet Count 150 X10*3/uL (160-400); Red Blood Count 2.62 X10*6/uL (4.20-5.50); Red Cell Distribution Width 20.4 % (11.0-16.0); White Blood Count 9.5 X10*3/uL (4.8-10.8)
[2024-06-26 06:31] LABS: Anion Gap 15 (12-20); Blood Urea Nitrogen 50 mg/dL (9-16); Calcium 8.8 mg/dL (8.4-10.2); Carbon Dioxide 20 mmol/L (22-29); Chloride 109 mmol/L (96-108); Creatinine Clr Calc Pharmacy 24.2; Estimated Glomerular Filt Rate 20; Glucose Random 119 mg/dL (60-115); Potassium 3.6 mmol/L (3.3-5.1); Sodium 140 mmol/L (135-145)
[2024-06-26 07:54] VITALS: BP 112/53; PULSE 80; RESP 12; TEMP 36.7; O2SAT 99
[2024-06-26] MEDS: Metoprolol Succinate ER 25 MG TAB.ER.24H PO (08:04)
[2024-06-26] MEDS: Gabapentin 300 MG CAPSULE PO ×2 (08:04→21:39)
[2024-06-26] MEDS: Multivitamin TABLET 1 TAB PO (08:04)
[2024-06-26] MEDS: FLUoxetine HCl 20 MG CAPSULE 40 MG PO (08:04)
[2024-06-26] MEDS: Cholecalciferol (Vitamin D3) 25 MCG TABLET 50 MCG PO (08:04)
[2024-06-26] MEDS: Heparin Sodium,Porcine Flush 50 UNITS/5 ML SYRINGE IVFLUSH ×3 (08:05→23:43)
[2024-06-26] MEDS: 0.9 % Sodium Chloride Flush 3 ML SYRINGE IVFLUSH ×3 (08:05→23:42)
[2024-06-26] MEDS: Spironolactone 25 MG TABLET PO (08:05)
[2024-06-26] MEDS: Midodrine HCl 5 MG TABLET PO ×3 (08:05→21:39)
--- NOTE | 2024-06-26 08:43 | P.PNNP_ITS ---
Subjective Subjective Date of Service: 06/26/24 Interval history: Being treated for decompensated liver disease, anemia, and renal failure; All recent data reviewed Physical Exam 2 Vital Signs: Vital Signs: Last Vital Signs Temp 98.0 F 06/26/24 07:54 Pulse 80 06/26/24 07:54 Resp 12 06/26/24 07:54 BP 112/53 L 06/26/24 07:54 Pulse Ox 99 06/26/24 07:54 O2 Del Method Room Air 06/26/24 07:54 BMI result Body Mass Index 30.4 Const: General: no acute distress Eyes: EOM: EOMs intact bilaterally Neck: Neck: Yes supple Resp: Auscultation: diminished lung sounds Cardio: Rate: regular rate GI: Palpation (GI): Soft to palpation Neuro: General: moves all extremities Objective Data Labs 06/26/24 05:42 06/26/24 05:42 Labs: Laboratory Results - last 24 hr 06/26/24 05:42 WBC 9.5 RBC 2.62 L Hgb 9.5 L Hct 28.5 L MCV 108.8 H MCH 36.3 H MCHC 33.3 RDW 20.4 H Plt Count 150 L MPV 10.7 Absolute Nucleated RBC 0.000 Nucleated RBC % (auto) 0.0 Sodium 140 Potassium 3.6 Chloride 109 H Carbon Dioxide 20 L Anion Gap 15 BUN 50 H Creatinine 2.39 H Estim Creat Clear Calc 24.2 Estimated GFR 20 Random Glucose 119 H Calcium 8.8 D Microbiology Microbiology Results: Microbiology 06/14/24 18:13 Blood - Venous Blood Culture - Final No growth after 5 days. 06/14/24 18:14 Blood - Venous Blood Culture - Final No growth after 5 days. 06/11/24 23:16 Abdominal Fluid Gram Stain - Final 06/11/24 23:16 Abdominal Fluid Anaerobic Culture - Final NO GROWTH AFTER 5 DAYS 06/11/24 23:16 Abdominal Fluid Body Fluid Culture - Final No growth after 2 days Procedures Date of Service Date of Service: 06/26/24 Assessment & Plan Assessment and plan (1) Acute kidney injury superimposed on CKD: Status: Acute Plan 74-year-old woman with acute kidney injury superimposed on CKD in the setting of cirrhosis Had been on Octreotide and Midodrine; C/W current dose of lasix; Serum creatinine stable Could increase Spironolactone to 50 mg daily; Low sodium diet; C/W rest of current management Progress Note: Quality Stroke Does the patient have a stroke diagnosis?: No
[2024-06-26] MEDS: Furosemide 40 MG/4 ML VIAL IVPUSH (08:44)
[2024-06-26] MEDS: Albumin Human 25 % 100 ML IV ×2 (08:45→10:13)
[2024-06-26 08:50] VITALS: PULSE 89; RESP 18; O2SAT 96
[2024-06-26] MEDS: Fluticasone/Umeclidinium/Vilanterol 200/62.5/25 BLST.W.DEV 1 PUFF INHALE (08:50)
[2024-06-26] MEDS: Lactulose 20 GM/30 ML SOLUTION 30 GM PO ×2 (10:20→21:38)
--- NOTE | 2024-06-26 14:22 | P.PNIM_ITS ---
Subjective Subjective Date of Service: 06/26/24 Interval History: decompensated liver disease, anemia, and renal failure Review of Systems urinating well denies any dysuria encourage to ambulate , no fevers Physical Exam 2 Vital Signs: Vital Signs: Last Vital Signs Temp 98.0 F 06/26/24 07:54 Pulse 89 06/26/24 08:50 Resp 18 06/26/24 08:50 BP 112/53 L 06/26/24 07:54 Pulse Ox 99 06/26/24 07:54 O2 Del Method Room Air 06/26/24 07:54 BMI result Body Mass Index 30.4 General: AO X 3, no acute distress Resp: CTA bilateral. CVS: S1,S2,RRR, 2+ pitting edema in legs GI: +BS, NT, distention with signs of ascites; no asterixis Skin: No rash ext: the left arm is less swollen with echymosis, otherwise normal colour, not tense, able to move--swelling overall going down Neuro: motor grossly intact Psych: appropriate affect Objective Data Active Medications Acetaminophen (Acetaminophen 325 Mg Tablet) 650 mg PO Q6H PRN PRN Reason: Pain, Mild (Pain Scale 1-3), fever or headache Last Admin: 06/26/24 05:44 Dose: 650 mg Documented By: MUNA Albuterol Sulfate (Albuterol Sulfate 90 Mcg 8 Gm Inhaler) 2 puff INHALE RQID PRN PRN Reason: for wheezing Calcium Carbonate (Calcium Carbonate 750 Mg Tab.Chew) 750 mg PO Q4H PRN PRN Reason: Heartburn Fluoxetine HCl (Fluoxetine Hcl 20 Mg Capsule) 40 mg PO DAILY [facility] Last Admin: 06/26/24 08:04 Dose: 40 mg Documented By: LEAH Fluticasone/Umeclidinium/Vilanterol (Fluticasone/Umeclidinium/Vilanterol 200/62.5/25 Blst.W.Dev) 1 puff INHALE RDAILY [facility] Last Admin: 06/26/24 08:50 Dose: 1 puff Documented By: ELSY Furosemide (Furosemide 40 Mg/4 Ml Vial) 40 mg IVPUSH DAILY [facility]; Protocol Last Admin: 06/26/24 08:44 Dose: 40 mg Documented By: LEAH Gabapentin (Gabapentin 300 Mg Capsule) 300 mg PO BID [facility] Last Admin: 06/26/24 08:04 Dose: 300 mg Documented By: LEAH Heparin Sodium (Porcine) (Heparin Sodium,Porcine Flush 50 Units/5 Ml Syringe) 50 units IVFLUSH [facility] Last Admin: 06/26/24 08:05 Dose: 50 units Documented By: LEAH Ceftriaxone Sodium 1 gm/ (Sodium Chloride) 50 mls @ 100 mls/hr IV Q24H [facility] Last Infusion: 06/25/24 17:26 Dose: Infused Documented By: MUNA Lactulose (Lactulose 20 Gm/30 Ml Solution) 30 gm PO BID [facility] Last Admin: 06/26/24 10:20 Dose: 30 gm Documented By: LEAH Magnesium Hydroxide (Milk Of Magnesia 30 Ml Oral.Susp) 30 ml PO DAILY PRN PRN Reason: Constipation Melatonin (Melatonin 3 Mg Tablet) 6 mg PO BEDTIME PRN PRN Reason: Insomnia Last Admin: 06/25/24 21:30 Dose: 6 mg Documented By: MUNA Metoprolol Succinate (Metoprolol Succinate Er 25 Mg Tab.Er.24h) 25 mg PO DAILY [facility]; Protocol Last Admin: 06/26/24 08:04 Dose: 25 mg Documented By: LEAH Midodrine (Midodrine Hcl 5 Mg Tablet) 5 mg PO TID [facility] Last Admin: 06/26/24 08:05 Dose: 5 mg Documented By: LEAH Multivitamins/Vitamin C (Multivitamin Tablet) 1 tab PO DAILY [facility] Last Admin: 06/26/24 08:04 Dose: 1 tab Documented By: LEAH Omeprazole (Omeprazole 20 Mg Capsule.) 20 mg PO DAILY@0630 [facility] Last Admin: 06/26/24 05:45 Dose: 20 mg Documented By: MUNA Ondansetron HCl (Ondansetron Hcl 4 Mg/2 Ml Vial) 4 mg IVPUSH Q8H PRN PRN Reason: Nausea and Vomiting Last Admin: 06/13/24 17:22 Dose: 4 mg Documented By: TEVIN Sodium Chloride (0.9 % Sodium Chloride Flush 3 Ml Syringe) 3 ml IVFLUSH [facility] Last Admin: 06/26/24 08:05 Dose: 3 ml Documented By: LEAH Spironolactone (Spironolactone 25 Mg Tablet) 25 mg PO DAILY [facility]; Protocol Last Admin: 06/26/24 08:05 Dose: 25 mg Documented By: LEAH Vitamin D (Cholecalciferol (Vitamin D3) 25 Mcg Tablet) 50 mcg PO DAILY [facility] Last Admin: 06/26/24 08:04 Dose: 50 mcg Documented By: LEAH Labs 06/26/24 05:42 06/26/24 05:42 Labs: Laboratory Results - last 24 hr 06/26/24 05:42 MCV 108.8 H MCH 36.3 H MCHC 33.3 RDW 20.4 H Plt Count 150 L MPV 10.7 Absolute Nucleated RBC 0.000 Nucleated RBC % (auto) 0.0 Anion Gap 15 Estim Creat Clear Calc 24.2 Estimated GFR 20 Random Glucose 119 H Calcium 8.8 D Assessment and Plan (1) Acute kidney injury superimposed on CKD: Status: Acute Assessment and Plan: 74/F PMH etoh dependence in remission, etoh cirrhosis, copd, hfref, htn, breast ca, mood disorder, Hepatic encephalopathy--resolved. last ammonia level 56. continue Lactulose 30 bid hold for diarrhae,Rifaximin 500 bid anemia: +NGT lave on admission, no active bleed, H/H stable avoid heparin, ASA. H/H is down has trended down and transfused, ? frequent blood d as per chart review -transfused 1 unit on 06/15 and 1 unit on 06/24( 2 prbc). Outpatient EGD per GI thrombocytopenia--chronic d/t liver disease, stable decompensated cirrhosis of the liver with ascietes LFTs are stable, Tbili down, INR stable around 1.6 paracentesis again 05/25, 3L and 06/22, 2L plan: continue midodrine, hold if BP high continue empiric Abx (ceftriaxone)-intiated 06/22. Triple phase CT to be done on outpatient basis once renal function is stable given octerotide/albumin. nephrology following CKD3B, SANDRA, worsening creatine, tought to be ? hepato renal vs cardio renal given fluid overloaded status with - 14 liters, elevated BNP and worsening with IVF BNP 610 nephro -continue iv lasix 40 mg qd+adjusted spirnolactone to 50 mg qd. COPD--no exacerbation Inhalers PRN Left arm swelling, she denies falling on to that side.the appearance is that of hematoma, has good pulse coloration, no cold, suspect infiltrated IV, no evidence of compartmental syndrome. CT of the arm showed Fluidlike density circumferentially about the distal forearm and hand compatible with edema, cellulitis, or combination of these. normal WBC, no fever, CPK normal. Vascular surgery rec conservative management---swelling is signficantly down. continue to moniter chronic HFeEF. continue metoprolol and Lasix as above. Mood disorder-SSRI. Abnormal MRI with concern for pancreatitic mass -study degraded by motion -CT w/o contrast--> mass not seen, noted prior liver lesion -repeat study on outpatient basis (triple phase CT ) DVT prophylaxis--no heparin d/t anemia, gib needing transfusion, baseline elevated inr compression device dispo: likely STR when medically stable updating daughter on regular basis, over condition is guarded Quality Stroke Does the patient have a stroke diagnosis?: No VTE Prior VTE?: No VTE Risk Level:: Medical - moderate - high VTE Device Contraindication: Treatment Not Indicated VTE Drug Contraindication: N/A - Med Ordered
[2024-06-26 16:01] VITALS: BP 135/64; PULSE 61; RESP 18; TEMP 36.6; O2SAT 98
[2024-06-26] MEDS: cefTRIAXone sodium 1 GM in 0.9 % Sodium Chloride 50 ML IV (16:01)
[2024-06-26 19:45] VITALS: BP 126/60; PULSE 60; RESP 12; TEMP 36.3; O2SAT 98
[2024-06-26] MEDS: Melatonin 3 MG TABLET 6 MG PO (21:39)
[2024-06-27 04:00] VITALS: BP 128/59; PULSE 61; RESP 12; TEMP 36.4; O2SAT 100
[2024-06-27] MEDS: Omeprazole 20 MG CAPSULE.DR PO (05:33)
[2024-06-27] MEDS: Acetaminophen 325 MG TABLET 650 MG PO ×2 (05:36→20:23)
[2024-06-27 06:43] LABS: Anion Gap 18 (12-20); Blood Urea Nitrogen 51 mg/dL (9-16); Carbon Dioxide 18 mmol/L (22-29); Chloride 107 mmol/L (96-108); Creatinine Clr Calc Pharmacy 24.9; Estimated Glomerular Filt Rate 21; Glucose Random 136 mg/dL (60-115); Potassium 3.4 mmol/L (3.3-5.1); Sodium 140 mmol/L (135-145)
[2024-06-27 08:15] VITALS: BP 113/57; PULSE 62; RESP 12; TEMP 36.2; O2SAT 97
[2024-06-27] MEDS: Gabapentin 300 MG CAPSULE PO ×2 (08:19→20:23)
[2024-06-27] MEDS: Furosemide 40 MG/4 ML VIAL IVPUSH (08:19)
[2024-06-27] MEDS: Lactulose 20 GM/30 ML SOLUTION 30 GM PO (08:20)
[2024-06-27] MEDS: Midodrine HCl 5 MG TABLET PO ×3 (08:20→20:23)
[2024-06-27] MEDS: Sodium Bicarbonate 650 MG TABLET PO ×2 (08:20→20:23)
[2024-06-27] MEDS: Metoprolol Succinate ER 25 MG TAB.ER.24H PO (08:20)
[2024-06-27] MEDS: Cholecalciferol (Vitamin D3) 25 MCG TABLET 50 MCG PO (08:20)
[2024-06-27] MEDS: FLUoxetine HCl 20 MG CAPSULE 40 MG PO (08:20)
[2024-06-27] MEDS: Multivitamin TABLET 1 TAB PO (08:20)
[2024-06-27] MEDS: Spironolactone 25 MG TABLET 50 MG PO (08:21)
[2024-06-27] MEDS: Fluticasone/Umeclidinium/Vilanterol 200/62.5/25 BLST.W.DEV 1 PUFF INHALE (08:21)
[2024-06-27] MEDS: Heparin Sodium,Porcine Flush 50 UNITS/5 ML SYRINGE IVFLUSH ×2 (08:21→14:06)
[2024-06-27] MEDS: 0.9 % Sodium Chloride Flush 3 ML SYRINGE IVFLUSH ×2 (08:21→14:07)
[2024-06-27 08:23] VITALS: PULSE 64; RESP 18; O2SAT 99
--- NOTE | 2024-06-27 13:30 | MHC.CM.PN ---
Addendum entered by Lyly Jasmine RN 06/27/24 16:20: Per MD patient will not transfer and will likely be ready for STR in 1-2 days. Updated PT sent to [facility] to start auth. Original Note: Per MD rounds patient not medically cleared for dc, ? xfer to [facility]. CM will continue to follow.
--- NOTE | 2024-06-27 13:47 | HO.PM.IMPN ---
Subjective Subjective Date of Service: 06/27/24 Interval History: decompensated liver disease, anemia, and renal failure Review of Systems seems similar denies any abd pain or nausea or vomiting Physical Exam Vital Signs: Vital Signs: Last Vital Signs Temp 97.1 F 06/27/24 08:15 Pulse 64 06/27/24 08:23 Resp 18 06/27/24 08:23 BP 113/57 L 06/27/24 08:15 Pulse Ox 97 06/27/24 08:15 O2 Del Method Room Air 06/27/24 08:15 BMI result Body Mass Index 30.4 General: AO X 3, no acute distress Resp: CTA bilateral. CVS: S1,S2,RRR, 2+ pitting edema in legs GI: +BS, NT, distention with signs of ascites; no asterixis Skin: No rash ext: the left arm is less swollen with echymosis, otherwise normal colour, not tense, able to move--swelling overall going down Neuro: motor grossly intact Psych: appropriate affect Objective Data Active Medications Acetaminophen (Acetaminophen 325 Mg Tablet) 650 mg PO Q6H PRN PRN Reason: Pain, Mild (Pain Scale 1-3), fever or headache Last Admin: 06/27/24 05:36 Dose: 650 mg Documented By: RHIANNON Albuterol Sulfate (Albuterol Sulfate 90 Mcg 8 Gm Inhaler) 2 puff INHALE RQID PRN PRN Reason: for wheezing Albuterol/Ipratropium (Albuterol/Iprat 2.5/0.5mg 3 Ml Ampul.Neb) 3 ml INHALE Q4H PRN PRN Reason: Wheezing Calcium Carbonate (Calcium Carbonate 750 Mg Tab.Chew) 750 mg PO Q4H PRN PRN Reason: Heartburn Fluoxetine HCl (Fluoxetine Hcl 20 Mg Capsule) 40 mg PO DAILY [facility] Last Admin: 06/27/24 08:20 Dose: 40 mg Documented By: LEAH Fluticasone/Umeclidinium/Vilanterol (Fluticasone/Umeclidinium/Vilanterol 200/62.5/25 Blst.W.Dev) 1 puff INHALE RDAILY [facility] Last Admin: 06/27/24 08:21 Dose: 1 puff Documented By: ERICH Furosemide (Furosemide 40 Mg/4 Ml Vial) 40 mg IVPUSH DAILY [facility]; Protocol Last Admin: 06/27/24 08:19 Dose: 40 mg Documented By: LEAH Gabapentin (Gabapentin 300 Mg Capsule) 300 mg PO BID [facility] Last Admin: 06/27/24 08:19 Dose: 300 mg Documented By: LEAH Heparin Sodium (Porcine) (Heparin Sodium,Porcine Flush 50 Units/5 Ml Syringe) 50 units IVFLUSH QSHIFT [facility] Last Admin: 06/27/24 08:21 Dose: 50 units Documented By: LEAH Ceftriaxone Sodium 1 gm/ (Sodium Chloride) 50 mls @ 100 mls/hr IV Q24H [facility] Last Infusion: 06/26/24 16:42 Dose: Infused Documented By: LEAH Lactulose (Lactulose 20 Gm/30 Ml Solution) 30 gm PO BID [facility] Last Admin: 06/27/24 08:20 Dose: 30 gm Documented By: LEAH Magnesium Hydroxide (Milk Of Magnesia 30 Ml Oral.Susp) 30 ml PO DAILY PRN PRN Reason: Constipation Melatonin (Melatonin 3 Mg Tablet) 6 mg PO BEDTIME PRN PRN Reason: Insomnia Last Admin: 06/26/24 21:39 Dose: 6 mg Documented By: MUNA Metoprolol Succinate (Metoprolol Succinate Er 25 Mg Tab.Er.24h) 25 mg PO DAILY [facility]; Protocol Last Admin: 06/27/24 08:20 Dose: 25 mg Documented By: LEAH Midodrine (Midodrine Hcl 5 Mg Tablet) 5 mg PO TID [facility] Last Admin: 06/27/24 08:20 Dose: 5 mg Documented By: LEAH Multivitamins/Vitamin C (Multivitamin Tablet) 1 tab PO DAILY [facility] Last Admin: 06/27/24 08:20 Dose: 1 tab Documented By: LEAH Omeprazole (Omeprazole 20 Mg Capsule.Dr) 20 mg PO DAILY@0630 [facility] Last Admin: 06/27/24 05:33 Dose: 20 mg Documented By: RHIANNON Ondansetron HCl (Ondansetron Hcl 4 Mg/2 Ml Vial) 4 mg IVPUSH Q8H PRN PRN Reason: Nausea and Vomiting Last Admin: 06/13/24 17:22 Dose: 4 mg Documented By: TEVIN Sodium Bicarbonate (Sodium Bicarbonate 650 Mg Tablet) 650 mg PO BID [facility] Last Admin: 06/27/24 08:20 Dose: 650 mg Documented By: LEAH Sodium Chloride (0.9 % Sodium Chloride Flush 3 Ml Syringe) 3 ml IVFLUSH QSHIFT [facility] Last Admin: 06/27/24 08:21 Dose: 3 ml Documented By: LEAH Spironolactone (Spironolactone 25 Mg Tablet) 50 mg PO DAILY [facility]; Protocol Last Admin: 06/27/24 08:21 Dose: 50 mg Documented By: LEAH Vitamin D (Cholecalciferol (Vitamin D3) 25 Mcg Tablet) 50 mcg PO DAILY [facility] Last Admin: 06/27/24 08:20 Dose: 50 mcg Documented By: LEAH Labs 06/26/24 05:42 06/27/24 06:15 Labs: Laboratory Results - last 24 hr 06/27/24 06:15 Anion Gap 18 Estim Creat Clear Calc 24.9 Estimated GFR 21 Random Glucose 136 H Calcium 9.0 Assessment and Plan (1) Acute kidney injury superimposed on CKD: Status: Acute Assessment and Plan: 74/F PMH etoh dependence in remission, etoh cirrhosis, copd, hfref, htn, breast ca, mood disorder, Hepatic encephalopathy--resolved. last ammonia level 56. continue Lactulose 30 bid hold for diarrhae,Rifaximin 500 bid anemia: +NGT lave on admission, no active bleed, H/H stable avoid heparin, ASA. H/H is down has trended down and transfused, ? frequent blood d as per chart review -transfused 1 unit on 06/15 and 1 unit on 06/24( 2 prbc). Outpatient EGD per GI thrombocytopenia--chronic d/t liver disease, stable decompensated cirrhosis of the liver with ascietes LFTs are stable, Tbili down, INR stable around 1.6 paracentesis again 2, 3L and 06/22, 2L plan: continue midodrine, hold if BP high continue empiric Abx (ceftriaxone)-intiated 06/22. Triple phase CT to be done on outpatient basis once renal function is stable given octerotide/albumin. nephrology following CKD3B, SANDRA, worsening creatine, tought to be ? hepato renal vs cardio renal given fluid overloaded status . BNP 610 nephro -continue iv lasix 40 mg qd+adjusted spirnolactone to 50 mg qd. COPD--no exacerbation Inhalers PRN Left arm swelling, she denies falling on to that side.the appearance is that of hematoma, has good pulse coloration, no cold, suspect infiltrated IV, no evidence of compartmental syndrome. CT of the arm showed Fluidlike density circumferentially about the distal forearm and hand compatible with edema, cellulitis, or combination of these. normal WBC, no fever, CPK normal. Vascular surgery rec conservative management---swelling is signficantly down. continue to moniter chronic HFeEF. continue metoprolol and Lasix as above. Mood disorder-SSRI. Abnormal MRI with concern for pancreatitic mass -study degraded by motion -CT w/o contrast--> mass not seen, noted prior liver lesion -repeat study on outpatient basis (triple phase CT ) DVT prophylaxis--no heparin d/t anemia, gib needing transfusion, baseline elevated inr compression device d/w GI in detail and patient in detailed length -called [facility] for possible transfer. called patient daughter -left message . Quality Stroke Does the patient have a stroke diagnosis?: No VTE Prior VTE?: No VTE Risk Level:: Medical - moderate - high VTE Device Contraindication: Treatment Not Indicated VTE Drug Contraindication: N/A - Med Ordered
[2024-06-27] MEDS: cefTRIAXone sodium 1 GM in 0.9 % Sodium Chloride 50 ML IV (14:07)
--- NOTE | 2024-06-27 16:12 | P.PNGI_ITS ---
Subjective Subjective Date of Service: 06/27/24 Interval History: Seen in follow up with daughter at bedside. Looks in good spirits. Has gross ascites and short of breath on conversing. Case was reviewed over the phone with liver transplant team at [facility] as well. Unfortunately Xfer to [facility] not possible due to bed shortage and insurance constraints. Critical Care Time (minutes): 0 Physical Exam 2 Vital Signs: Vital Signs: Last Vital Signs Temp 97.1 F 06/27/24 08:15 Pulse 64 06/27/24 08:23 Resp 18 06/27/24 08:23 BP 113/57 L 06/27/24 08:15 Pulse Ox 97 06/27/24 08:15 O2 Del Method Room Air 06/27/24 08:15 BMI result Body Mass Index 30.4 Frail female bitemportal muscle wasting inc abd girth with + fluid thrill Mild KYRA No asterixis Objective Data Labs 06/26/24 05:42 06/27/24 06:15 Labs: Laboratory Results - last 24 hr 06/27/24 06:15 Sodium 140 Potassium 3.4 Chloride 107 Carbon Dioxide 18 L Anion Gap 18 BUN 51 H Creatinine 2.32 H Estim Creat Clear Calc 24.9 Estimated GFR 21 Random Glucose 136 H Calcium 9.0 Microbiology Microbiology Results: Microbiology 06/14/24 18:13 Blood - Venous Blood Culture - Final No growth after 5 days. 06/14/24 18:14 Blood - Venous Blood Culture - Final No growth after 5 days. 06/11/24 23:16 Abdominal Fluid Gram Stain - Final 06/11/24 23:16 Abdominal Fluid Anaerobic Culture - Final NO GROWTH AFTER 5 DAYS 06/11/24 23:16 Abdominal Fluid Body Fluid Culture - Final No growth after 2 days Procedures Date of Service Date of Service: 06/27/24 Progress Note: A&P Assessment and plan (1) Abdominal ascites: Status: Acute (2) Decompensation of cirrhosis of liver: Status: Acute (3) Frailty: Status: Acute (4) Anemia: Status: Acute (5) Acute kidney injury superimposed on CKD: Status: Acute Plan Reviewed with the patient that despite her 15 days of hospital stay, have not made much progress with her renal function. This may well be her new baseline, that is type 2 HRS physiology. Patient and daughter in favor of getting this closely monitored as outpatient, which is reasonable. In terms of her cirrhosis, based on the discussion with the ass team, appears frailty and rapid decline over the last few months may be prohibitive. However, can discuss referral to other facilities such as [facility], [facility] etc for second opinion if pt agreeable. She is also aware that should she choose to not pursue liver transplant evaluation, can also connect her to palliative care services as outpatient. She has an office appointment on 07/02 and will be reviewing this in detail with her then. In terms of anemia and ongoing transfusion requirements, we will schedule her for an upper endoscopy tentatively tomorrow. DDx include PHG, GAVE, AVMs. Variceal bleeding unlikely given overall clinical presentation. Please keep her NPO after midnight. INR ordered to be drawn this afternoon. If >1.5, pls give IV vit K 10mg today and recheck INR tmrw AM. Plan of care was extensively discussed with the patient and her daughter who are in agreement. Time Spent With Patient Time: Total time managing care of this patient today ____ minutes. Quality Stroke Does the patient have a stroke diagnosis?: No VTE Prior VTE?: No VTE Risk Level:: Medical - moderate - high VTE Device Contraindication: Treatment Not Indicated VTE Drug Contraindication: N/A - Med Ordered
[2024-06-27 17:51] LABS: INTERNATIONAL NORM RATIO 1.7 (0.9-1.1); Prothrombin Time 20.6 SEC (11.1-13.3)
[2024-06-27 18:54] VITALS: BP 138/68; PULSE 62; RESP 18; TEMP 36.2; O2SAT 97
--- NOTE | 2024-06-27 19:36 | P.PNNP_ITS ---
Subjective Subjective Date of Service: 06/27/24 Interval history: Events noted; All recent data reviewed; Serum creatinine stable Physical Exam 2 Vital Signs: Vital Signs: Last Vital Signs Temp 97.2 F 06/27/24 18:54 Pulse 62 06/27/24 18:54 Resp 18 06/27/24 18:54 BP 138/68 06/27/24 18:54 Pulse Ox 97 06/27/24 18:54 O2 Del Method Room Air 06/27/24 18:54 BMI result Body Mass Index 30.4 Const: General: no acute distress Eyes: EOM: EOMs intact bilaterally Neck: Neck: Yes supple Resp: Auscultation: diminished lung sounds Cardio: Rate: regular rate GI: Palpation (GI): Soft to palpation Neuro: General: moves all extremities Objective Data Labs 06/26/24 05:42 06/27/24 06:15 Labs: Laboratory Results - last 24 hr 06/27/24 06/27/24 06:15 17:25 PT 20.6 H INR 1.7 H Sodium 140 Potassium 3.4 Chloride 107 Carbon Dioxide 18 L Anion Gap 18 BUN 51 H Creatinine 2.32 H Estim Creat Clear Calc 24.9 Estimated GFR 21 Random Glucose 136 H Calcium 9.0 Microbiology Microbiology Results: Microbiology 06/14/24 18:13 Blood - Venous Blood Culture - Final No growth after 5 days. 06/14/24 18:14 Blood - Venous Blood Culture - Final No growth after 5 days. 06/11/24 23:16 Abdominal Fluid Gram Stain - Final 06/11/24 23:16 Abdominal Fluid Anaerobic Culture - Final NO GROWTH AFTER 5 DAYS 06/11/24 23:16 Abdominal Fluid Body Fluid Culture - Final No growth after 2 days Procedures Date of Service Date of Service: 06/27/24 Assessment & Plan Assessment and plan (1) Acute kidney injury superimposed on CKD: Status: Acute Plan 74-year-old woman with acute kidney injury superimposed on CKD in the setting of cirrhosis Had been on Octreotide and Midodrine; C/W current dose of lasix; Serum creatinine stable Increased Spironolactone to 50 mg daily; Low sodium diet; C/W rest of current management Progress Note: Quality Stroke Does the patient have a stroke diagnosis?: No
[2024-06-27] MEDS: Melatonin 3 MG TABLET 6 MG PO (20:22)
[2024-06-28] VITALS (8 sets, daily range): BP systolic 117–144; BP diastolic 55–67; PULSE 59–72; RESP 12–20; TEMP 36–36.4; O2SAT 96–99; BMI 30.4
[2024-06-28] MEDS: Heparin Sodium,Porcine Flush 50 UNITS/5 ML SYRINGE IVFLUSH ×3 (00:03→15:47)
[2024-06-28] MEDS: Omeprazole 20 MG CAPSULE.DR PO ×2 (05:45→21:04)
[2024-06-28] MEDS: Midodrine HCl 5 MG TABLET PO ×3 (07:48→21:04)
[2024-06-28] MEDS: Metoprolol Succinate ER 25 MG TAB.ER.24H PO (07:48)
[2024-06-28] MEDS: Sodium Bicarbonate 650 MG TABLET PO ×2 (07:48→21:04)
[2024-06-28] MEDS: Gabapentin 300 MG CAPSULE PO ×2 (07:48→21:03)
[2024-06-28] MEDS: Lactulose 20 GM/30 ML SOLUTION 30 GM PO ×2 (07:48→21:07)
[2024-06-28] MEDS: Cholecalciferol (Vitamin D3) 25 MCG TABLET 50 MCG PO (07:48)
[2024-06-28] MEDS: Multivitamin TABLET 1 TAB PO (07:48)
[2024-06-28] MEDS: FLUoxetine HCl 20 MG CAPSULE 40 MG PO (07:48)
[2024-06-28] MEDS: 0.9 % Sodium Chloride Flush 3 ML SYRINGE IVFLUSH ×2 (07:49→15:52)
[2024-06-28] MEDS: Fluticasone/Umeclidinium/Vilanterol 200/62.5/25 BLST.W.DEV 1 PUFF INHALE (07:56)
[2024-06-28] MEDS: Albumin Human 25 % 100 ML 133.33 ML IV ×2 (09:38→10:18)
--- NOTE | 2024-06-28 10:00 | P.PNNP_ITS ---
Subjective Subjective Date of Service: 06/28/24 Interval history: Events noted; All recent data reviewed; Serum creatinine stable Physical Exam 2 Vital Signs: Vital Signs: Last Vital Signs Temp 97.1 F 06/28/24 07:40 Pulse 72 06/28/24 07:56 Resp 16 06/28/24 07:56 BP 120/58 L 06/28/24 07:40 Pulse Ox 96 06/28/24 07:40 O2 Del Method Room Air 06/28/24 07:40 BMI result Body Mass Index 30.4 Const: General: no acute distress Neck: Neck: Yes supple Resp: Auscultation: diminished lung sounds Cardio: Rate: regular rate GI: Palpation (GI): Soft to palpation Neuro: General: moves all extremities Objective Data Labs 06/26/24 05:42 06/27/24 06:15 Labs: Laboratory Results - last 24 hr 06/27/24 17:25 PT 20.6 H INR 1.7 H Microbiology Microbiology Results: Microbiology 06/14/24 18:13 Blood - Venous Blood Culture - Final No growth after 5 days. 06/14/24 18:14 Blood - Venous Blood Culture - Final No growth after 5 days. 06/11/24 23:16 Abdominal Fluid Gram Stain - Final 06/11/24 23:16 Abdominal Fluid Anaerobic Culture - Final NO GROWTH AFTER 5 DAYS 06/11/24 23:16 Abdominal Fluid Body Fluid Culture - Final No growth after 2 days Procedures Date of Service Date of Service: 06/28/24 Assessment & Plan Assessment and plan (1) Acute kidney injury superimposed on CKD: Status: Acute Plan 74-year-old woman with acute kidney injury superimposed on CKD in the setting of cirrhosis Had been on Octreotide and Midodrine; C/W current dose of lasix; Serum creatinine stable Could increase Spironolactone to 100 mg daily; Low sodium diet; C/W rest of current management Progress Note: Quality Stroke Does the patient have a stroke diagnosis?: No
--- NOTE | 2024-06-28 11:22 | HO.ANESPROP2 ---
HPI - Anesthesia Eval Consult details Narrative: 74 yo F presenting for EGD. Decompensated liver disease. PMF Active Problems Active Problems: All Active Problems Anemia (Acute) Acute kidney injury superimposed on CKD (Acute) Hematoma of left upper extremity (Acute) Abdominal ascites (Acute) Decompensation of cirrhosis of liver (Acute) Frailty (Acute) Gait instability (Acute) Nausea & vomiting (Acute) Decompensated hepatic cirrhosis (Acute) Leg edema (Acute) Cellulitis of leg, left (Acute) Pancreas cyst (Acute) Abnormal MRI of abdomen (Acute) Peripheral edema (Acute) Hepatic encephalopathy (Acute) Liver cyst (Acute) Left otitis media (Acute) CKD (chronic kidney disease) stage 3, GFR 30-59 ml/min (Acute) Alcohol use disorder, severe, in early remission (Acute) Ascites (Acute) Edema (Acute) Prolonged QT interval (Acute) Liver cirrhosis (Acute) Hyperglycemia (Acute) Postmenopausal (Acute) Lumbar back pain (Acute) Knee pain, right (Acute) DJD (degenerative joint disease), lumbar (Acute) Polyarthralgia (Acute) Early satiety (Acute) Abdominal pain (Acute) Neuropathy (Acute) Hx of screening mammography (Acute) Vitamin B12 deficiency (Acute) Vitamin D deficiency (Acute) Annual physical exam (Acute) Breast CA (Acute ~03/01/23) Flank pain, chronic (Acute) Excessive drinking of alcohol (Acute) COPD (chronic obstructive pulmonary disease) (Acute) Pulmonary nodules (Acute) Atrial arrhythmia (Acute) NICM (nonischemic cardiomyopathy) (Acute) Cardiac LV ejection fraction of 40-49% (Acute) Osteoarthritis (Acute) Colonoscopy refused (Acute) Muscle spasm (Acute) Chronic GERD (Acute) Anxiety, generalized (Acute) Past Medical History Medical History Neuropathy Hx of screening mammography Vitamin B12 deficiency Vitamin D deficiency Annual physical exam Breast CA (~03/01/23) Flank pain, chronic Hx of abdominal pain Excessive drinking of alcohol COPD (chronic obstructive pulmonary disease) Pulmonary nodules Atrial arrhythmia NICM (nonischemic cardiomyopathy) Cardiac LV ejection fraction of 40-49% Osteoarthritis Colonoscopy refused Muscle spasm History of breast cancer in female Chronic GERD Anxiety, generalized Family History Family History Father Non-Hodgkin lymphoma Mother CVD (cardiovascular disease) Brother Lung disease Sister No problems noted. Maternal Grandfather Colon cancer Maternal Grandmother CVD (cardiovascular disease) Paternal Grandfather Unknown family medical history Paternal Grandmother Unknown family medical history Brother No problems noted. Son No problems noted. Son No problems noted. Daughter No problems noted. Other Mental health disorder Substance use disorder Family history of problems with anesthesia: No Surgical History Surgical History History of esophagogastroduodenoscopy (EGD) H/O colonoscopy History of removal of Port-a-Cath History of hysterectomy History of section H/O right mastectomy History of Problems with Anesthesia: No Social History Social History Household Members: Unknown / Unable to assess Housing: Unknown / Unable to assess Alcohol intake: former Year quit: 2022 Comment: 1;1 Patient Tobacco Use Status: Former Tobacco user Tobacco use type: Cigarette Years Smoked: 10 e-Cigarette/Vaping Use: Never Used Second Hand Smoke Exposure: No Advance Directives Date on File: 04/04/24 service: No 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 needs: No Hearing needs: No Vision needs: Yes (wears glasses ) Meds Allergies Allergy/AdvReac Type Severity Reaction Status Date / Time hydromorphone [From DILAUDID] Allergy Intermediate hives, Verified 06/11/24 16:46 itching losartan Allergy Intermediate Angioedema Verified 06/11/24 16:46 tramadol [From ULTRAM] Allergy Intermediate hives,itchi Verified 06/11/24 16:46 ng Active Medications: Current Medications Acetaminophen (Acetaminophen 325 Mg Tablet) 650 mg PO Q6H PRN PRN Reason: Pain, Mild (Pain Scale 1-3), fever or headache Last Admin: 06/27/24 20:23 Dose: 650 mg Albuterol Sulfate (Albuterol Sulfate 90 Mcg 8 Gm Inhaler) 2 puff INHALE RQID PRN PRN Reason: for wheezing Albuterol/Ipratropium (Albuterol/Iprat 2.5/0.5mg 3 Ml Ampul.Neb) 3 ml INHALE Q4H PRN PRN Reason: Wheezing Calcium Carbonate (Calcium Carbonate 750 Mg Tab.Chew) 750 mg PO Q4H PRN PRN Reason: Heartburn Fluoxetine HCl (Fluoxetine Hcl 20 Mg Capsule) 40 mg PO DAILY [facility] Last Admin: 06/28/24 07:48 Dose: 40 mg Fluticasone/Umeclidinium/Vilanterol (Fluticasone/Umeclidinium/Vilanterol 200/62.5/25 Blst.W.Dev) 1 puff INHALE RDAILY [facility] Last Admin: 06/28/24 07:56 Dose: 1 puff Gabapentin (Gabapentin 300 Mg Capsule) 300 mg PO BID [facility] Last Admin: 06/28/24 07:48 Dose: 300 mg Heparin Sodium (Porcine) (Heparin Sodium,Porcine Flush 50 Units/5 Ml Syringe) 50 units IVFLUSH QSHIFT [facility] Last Admin: 06/28/24 07:49 Dose: 50 units Ceftriaxone Sodium 1 gm/ (Sodium Chloride) 50 mls @ 100 mls/hr IV Q24H [facility] Last Infusion: 06/27/24 14:40 Dose: Infused Lactulose (Lactulose 20 Gm/30 Ml Solution) 30 gm PO BID [facility] Last Admin: 06/28/24 07:48 Dose: 30 gm Loratadine (Loratadine 10 Mg Tablet) 10 mg PO DAILY [facility] Last Admin: 06/28/24 07:50 Dose: Not Given Magnesium Hydroxide (Milk Of Magnesia 30 Ml Oral.Susp) 30 ml PO DAILY PRN PRN Reason: Constipation Melatonin (Melatonin 3 Mg Tablet) 6 mg PO BEDTIME PRN PRN Reason: Insomnia Last Admin: 06/27/24 20:22 Dose: 6 mg Metoprolol Succinate (Metoprolol Succinate Er 25 Mg Tab.Er.24h) 25 mg PO DAILY [facility]; Protocol Last Admin: 06/28/24 07:48 Dose: 25 mg Midodrine (Midodrine Hcl 5 Mg Tablet) 5 mg PO TID [facility] Last Admin: 06/28/24 07:48 Dose: 5 mg Multivitamins/Vitamin C (Multivitamin Tablet) 1 tab PO DAILY [facility] Last Admin: 06/28/24 07:48 Dose: 1 tab Omeprazole (Omeprazole 20 Mg Capsule.Dr) 20 mg PO DAILY@0630 [facility] Last Admin: 06/28/24 05:45 Dose: 20 mg Ondansetron HCl (Ondansetron Hcl 4 Mg/2 Ml Vial) 4 mg IVPUSH Q8H PRN PRN Reason: Nausea and Vomiting Last Admin: 06/13/24 17:22 Dose: 4 mg Sodium Bicarbonate (Sodium Bicarbonate 650 Mg Tablet) 650 mg PO BID [facility] Last Admin: 06/28/24 07:48 Dose: 650 mg Sodium Chloride (0.9 % Sodium Chloride Flush 3 Ml Syringe) 3 ml IVFLUSH QSHIFT [facility] Last Admin: 06/28/24 07:49 Dose: 3 ml Vitamin D (Cholecalciferol (Vitamin D3) 25 Mcg Tablet) 50 mcg PO DAILY [facility] Last Admin: 06/28/24 07:48 Dose: 50 mcg Home Medications ?Medication ?Instructions ?Recorded ?Confirmed ?Last Taken ?Type aspirin 81 mg tablet,delayed 81 mg PO DAILY 12/18/20 06/12/24 06/10/24 History release cholecalciferol (vitamin D3) 50 50 mcg PO DAILY 12/18/20 06/12/24 06/10/24 History mcg (2,000 unit) capsule omeprazole 20 mg capsule,delayed 20 mg PO DAILY@0630 07/15/23 06/12/24 06/10/24 History release acetaminophen 500 mg tablet 500 mg PO BID PRN Pain 03/31/24 06/12/24 Unknown History vitamin B complex 1 tab PO DAILY 03/31/24 06/12/24 06/10/24 History albuterol sulfate 90 mcg/actuation 2 puff inhalation QID PRN for 06/12/24 06/12/24 Unknown History aerosol inhaler wheezing spironolactone 50 mg tablet 100 mg PO DAILY 06/12/24 06/12/24 06/10/24 History Exam Exam Date and Time: 06/28/24 1120 Height,Weight and Vital Signs: Height 5 ft 7 in Weight 88 kg Last Vital Signs Temp 97.1 F 06/28/24 07:40 Pulse 72 06/28/24 07:56 Resp 16 06/28/24 07:56 BP 120/58 L 06/28/24 07:40 Pulse Ox 96 06/28/24 07:40 O2 Del Method Room Air 06/28/24 07:40 Pertinent Lab Results Pertinent Lab Results: Laboratory Tests 06/11/24 06/11/24 06/11/24 17:10 17:12 17:13 WBC 8.0 RBC 2.61 L Hgb 9.5 L Hct 28.7 L MCV 110.0 H MCH 36.4 H MCHC 33.1 RDW 15.1 Plt Count 194 MPV 10.9 Immature Gran % (Auto) 0.8 H Neut % (Auto) 65.1 Lymph % (Auto) 17.8 L [place] % (Auto) 14.8 H Eos % (Auto) 1.0 Baso % (Auto) 0.5 Lymph # (Auto) 1.4 [place] # (Auto) 1.2 Eos # (Auto) 0.1 Baso # (Auto) 0.0 Abs Immat Gran (auto) 0.06 H Absolute Neuts (auto) 5.2 Absolute Nucleated RBC 0.000 Nucleated RBC % (auto) 0.0 Neutrophils % (Manual) Band Neutrophils % Lymphocytes % (Manual) Monocytes % (Manual) Eosinophils % (Manual) Abs Neuts (Manual) Lymphocytes # (Manual) Monocytes # (Manual) Eosinophils # (Manual) Platelet Estimate Plt Morphology Comment RBC Morphology [place] Cells Schistocytes Smear Path Review Hold Purple Top PT 18.8 H INR 1.5 H APTT 37.4 H O2 Saturation ABG pH at Pt Temp ABG pH (Temp Correct) ABG pCO2 at Pt Temp ABG pO2 at Pt Temp ABG HCO3 ABG Base Excess (Actual) Sodium 137 Potassium 4.5 Chloride 106 Carbon Dioxide 21 L Anion Gap 15 BUN 29 H Creatinine 1.93 H Estim Creat Clear Calc 28.5 Estimated GFR 26 POC Glucose Random Glucose 122 H Lactic Acid Calcium 9.6 Magnesium 1.6 Total Bilirubin 6.8 H Direct Bilirubin 2.5 H AST 39 H ALT 20 Alkaline Phosphatase 80 Ammonia 99 H Total Creatine Kinase Troponin I High Sens 5.7 B-Natriuretic Peptide Total Protein 6.4 L Albumin 3.0 L Urine Color Urine Appearance Urine pH Ur Specific Triangle Urine Protein Urine Glucose (UA) Urine Ketones Urine Blood Urine Nitrite Ur Leukocyte Esterase Urine RBC Urine WBC Urine WBC Clumps Ur Squamous Epith Cells Urine Bacteria Hyaline Casts Peritoneal Tot Protein Peritoneal Albumin Peritoneal LDH Peritoneal Glucose COVID-19 (SEGUNDO) Negative COVID-19 Clin Com See Note Blood Type Antibody Screen Crossmatch 06/11/24 06/12/24 06/12/24 23:16 01:57 09:40 WBC 6.7 RBC 2.31 L Hgb 8.5 L Hct 25.5 L MCV 110.4 H MCH 36.8 H MCHC 33.3 RDW 15.2 Plt Count 156 L MPV 10.7 Immature Gran % (Auto) Neut % (Auto) Lymph % (Auto) [place] % (Auto) Eos % (Auto) Baso % (Auto) Lymph # (Auto) [place] # (Auto) Eos # (Auto) Baso # (Auto) Abs Immat Gran (auto) Absolute Neuts (auto) Absolute Nucleated RBC 0.000 Nucleated RBC % (auto) 0.0 Neutrophils % (Manual) Band Neutrophils % Lymphocytes % (Manual) Monocytes % (Manual) Eosinophils % (Manual) Abs Neuts (Manual) Lymphocytes # (Manual) Monocytes # (Manual) Eosinophils # (Manual) Platelet Estimate Plt Morphology Comment RBC Morphology [place] Cells Schistocytes Smear Path Review Hold Purple Top SEE NOTE PT 19.3 H INR 1.6 H APTT O2 Saturation ABG pH at Pt Temp ABG pH (Temp Correct) ABG pCO2 at Pt Temp ABG pO2 at Pt Temp ABG HCO3 ABG Base Excess (Actual) Sodium 140 Potassium 4.7 Chloride 106 Carbon Dioxide 24 Anion Gap 15 BUN 29 H Creatinine 1.92 H Estim Creat Clear Calc 28.6 Estimated GFR 26 POC Glucose Random Glucose 107 Lactic Acid Calcium 9.7 Magnesium Total Bilirubin Direct Bilirubin AST ALT Alkaline Phosphatase Ammonia Total Creatine Kinase Troponin I High Sens B-Natriuretic Peptide Total Protein Albumin Urine Color Dark Yellow Urine Appearance Clear Urine pH 5.0 Ur Specific Triangle 1.010 Urine Protein Negative Urine Glucose (UA) Negative Urine Ketones Negative Urine Blood Negative Urine Nitrite Negative Ur Leukocyte Esterase Trace H Urine RBC 0-2 Urine WBC 0-5 Urine WBC Clumps Present Ur Squamous Epith Cells 11-20 Urine Bacteria 1+ Hyaline Casts 11-20 Peritoneal Tot Protein 1.3 Peritoneal Albumin 0.7 Peritoneal LDH 63 Peritoneal Glucose 130 COVID-19 (SEGUNDO) COVID-19 Clin Com Blood Type Antibody Screen Crossmatch 06/12/24 06/13/24 06/13/24 09:56 09:49 19:33 WBC RBC Hgb Hct MCV MCH MCHC RDW Plt Count MPV Immature Gran % (Auto) Neut % (Auto) Lymph % (Auto) [place] % (Auto) Eos % (Auto) Baso % (Auto) Lymph # (Auto) [place] # (Auto) Eos # (Auto) Baso # (Auto) Abs Immat Gran (auto) Absolute Neuts (auto) Absolute Nucleated RBC Nucleated RBC % (auto) Neutrophils % (Manual) Band Neutrophils % Lymphocytes % (Manual) Monocytes % (Manual) Eosinophils % (Manual) Abs Neuts (Manual) Lymphocytes # (Manual) Monocytes # (Manual) Eosinophils # (Manual) Platelet Estimate Plt Morphology Comment RBC Morphology [place] Cells Schistocytes Smear Path Review Hold Purple Top PT INR APTT O2 Saturation ABG pH at Pt Temp ABG pH (Temp Correct) ABG pCO2 at Pt Temp ABG pO2 at Pt Temp ABG HCO3 ABG Base Excess (Actual) Sodium 137 Potassium 4.2 Chloride 107 Carbon Dioxide 22 Anion Gap 12 BUN 27 H Creatinine 1.71 H Estim Creat Clear Calc 32.1 Estimated GFR 29 POC Glucose 124 H Random Glucose 121 H Lactic Acid Calcium 9.2 Magnesium Total Bilirubin Direct Bilirubin AST ALT Alkaline Phosphatase Ammonia 86 H Total Creatine Kinase Troponin I High Sens B-Natriuretic Peptide Total Protein Albumin Urine Color Urine Appearance Urine pH Ur Specific Triangle Urine Protein Urine Glucose (UA) Urine Ketones Urine Blood Urine Nitrite Ur Leukocyte Esterase Urine RBC Urine WBC Urine WBC Clumps Ur Squamous Epith Cells Urine Bacteria Hyaline Casts Peritoneal Tot Protein Peritoneal Albumin Peritoneal LDH Peritoneal Glucose COVID-19 ([facility]DO) COVID-19 Clin Com Blood Type Antibody Screen Crossmatch 06/13/24 06/14/24 06/14/24 20:31 09:02 13:05 WBC 9.5 RBC 2.05 L Hgb 7.6 L Hct 22.4 L MCV 109.3 H MCH 37.1 H MCHC 33.9 RDW 15.9 Plt Count 148 L MPV 10.6 Immature Gran % (Auto) Neut % (Auto) Lymph % (Auto) [place] % (Auto) Eos % (Auto) Baso % (Auto) Lymph # (Auto) [place] # (Auto) Eos # (Auto) Baso # (Auto) Abs Immat Gran (auto) Absolute Neuts (auto) Absolute Nucleated RBC 0.000 Nucleated RBC % (auto) 0.0 Neutrophils % (Manual) Band Neutrophils % Lymphocytes % (Manual) Monocytes % (Manual) Eosinophils % (Manual) Abs Neuts (Manual) Lymphocytes # (Manual) Monocytes # (Manual) Eosinophils # (Manual) Platelet Estimate Plt Morphology Comment RBC Morphology [place] Cells Schistocytes Smear Path Review Hold Purple Top PT INR APTT O2 Saturation TNP ABG pH at Pt Temp 7.52 H ABG pH (Temp Correct) TNP ABG pCO2 at Pt Temp 28 L ABG pO2 at Pt Temp 92 ABG HCO3 23 ABG Base Excess (Actual) 1.0 Sodium 140 Potassium 4.9 Chloride 109 H Carbon Dioxide 22 Anion Gap 14 BUN 28 H Creatinine 1.48 H Estim Creat Clear Calc 37.1 Estimated GFR 35 POC Glucose Random Glucose 104 Lactic Acid Calcium 9.2 Magnesium Total Bilirubin 6.0 H Direct Bilirubin 2.3 H AST 43 H ALT 18 Alkaline Phosphatase 69 Ammonia 199 H 73 H Total Creatine Kinase Troponin I High Sens B-Natriuretic Peptide Total Protein 5.8 L Albumin 2.8 L Urine Color Urine Appearance Urine pH Ur Specific Triangle Urine Protein Urine Glucose (UA) Urine Ketones Urine Blood Urine Nitrite Ur Leukocyte Esterase Urine RBC Urine WBC Urine WBC Clumps Ur Squamous Epith Cells Urine Bacteria Hyaline Casts Peritoneal Tot Protein Peritoneal Albumin Peritoneal LDH Peritoneal Glucose COVID-19 ([facility]GUNDO) COVID-19 Clin Com Blood Type Antibody Screen Crossmatch 06/14/24 06/14/24 06/14/24 13:51 18:11 18:12 WBC RBC Hgb 7.7 L 7.6 L Hct 22.4 L 23.0 L MCV MCH MCHC RDW Plt Count MPV Immature Gran % (Auto) Neut % (Auto) Lymph % (Auto) [place] % (Auto) Eos % (Auto) Baso % (Auto) Lymph # (Auto) [place] # (Auto) Eos # (Auto) Baso # (Auto) Abs Immat Gran (auto) Absolute Neuts (auto) Absolute Nucleated RBC Nucleated RBC % (auto) Neutrophils % (Manual) Band Neutrophils % Lymphocytes % (Manual) Monocytes % (Manual) Eosinophils % (Manual) Abs Neuts (Manual) Lymphocytes # (Manual) Monocytes # (Manual) Eosinophils # (Manual) Platelet Estimate Plt Morphology Comment RBC Morphology [place] Cells Schistocytes Smear Path Review Hold Purple Top PT 21.2 H INR 1.7 H APTT O2 Saturation ABG pH at Pt Temp ABG pH (Temp Correct) ABG pCO2 at Pt Temp ABG pO2 at Pt Temp ABG HCO3 ABG Base Excess (Actual) Sodium Potassium Chloride Carbon Dioxide Anion Gap BUN Creatinine Estim Creat Clear Calc Estimated GFR POC Glucose Random Glucose Lactic Acid 1.8 Calcium Magnesium Total Bilirubin Direct Bilirubin AST ALT Alkaline Phosphatase Ammonia 77 H Total Creatine Kinase 112 Troponin I High Sens B-Natriuretic Peptide Total Protein Albumin Urine Color Urine Appearance Urine pH Ur Specific [place] Urine Protein Urine Glucose (UA) Urine Ketones Urine Blood Urine Nitrite Ur Leukocyte Esterase Urine RBC Urine WBC Urine WBC Clumps Ur Squamous Epith Cells Urine Bacteria Hyaline Casts Peritoneal Tot Protein Peritoneal Albumin Peritoneal LDH Peritoneal Glucose COVID-19 ([facility]DO) COVID-19 Clin Com Blood Type O Positive Antibody Screen NEGATIVE Crossmatch See Detail 06/15/24 06/15/24 06/16/24 05:55 08:05 05:11 WBC 9.8 10.1 RBC 1.97 L 2.43 L D Hgb 7.2 L 8.7 L D Hct 22.4 L 26.6 L MCV 113.7 H 109.5 H MCH 36.5 H 35.8 H MCHC 32.1 32.7 RDW 16.4 H 18.2 H Plt Count 139 L 149 L MPV 10.3 10.8 Immature Gran % (Auto) Neut % (Auto) Lymph % (Auto) [place] % (Auto) Eos % (Auto) Baso % (Auto) Lymph # (Auto) [place] # (Auto) Eos # (Auto) Baso # (Auto) Abs Immat Gran (auto) Absolute Neuts (auto) Absolute Nucleated RBC 0.000 0.000 Nucleated RBC % (auto) 0.0 0.0 Neutrophils % (Manual) Band Neutrophils % Lymphocytes % (Manual) Monocytes % (Manual) Eosinophils % (Manual) Abs Neuts (Manual) Lymphocytes # (Manual) Monocytes # (Manual) Eosinophils # (Manual) Platelet Estimate Plt Morphology Comment RBC Morphology [place] Cells Schistocytes Smear Path Review Hold Purple Top PT 21.9 H 18.8 H INR 1.8 H 1.5 H APTT O2 Saturation ABG pH at Pt Temp ABG pH (Temp Correct) ABG pCO2 at Pt Temp ABG pO2 at Pt Temp ABG HCO3 ABG Base Excess (Actual) Sodium 139 137 Potassium 4.5 4.1 Chloride 108 108 Carbon Dioxide 21 L 22 Anion Gap 15 11 L BUN 24 H 24 H Creatinine 1.56 H 1.38 Estim Creat Clear Calc 35.2 39.8 Estimated GFR 33 38 POC Glucose Random Glucose 120 H 125 H Lactic Acid Calcium 9.3 9.0 Magnesium Total Bilirubin 7.6 H 5.4 H Direct Bilirubin 2.9 H 2.2 H AST 43 H 42 H ALT 18 20 Alkaline Phosphatase 67 89 Ammonia 56 H Total Creatine Kinase Troponin I High Sens B-Natriuretic Peptide Total Protein 5.7 L 5.6 L Albumin 3.0 L 2.8 L Urine Color Urine Appearance Urine pH Ur Specific Triangle Urine Protein Urine Glucose (UA) Urine Ketones Urine Blood Urine Nitrite Ur Leukocyte Esterase Urine RBC Urine WBC Urine WBC Clumps Ur Squamous Epith Cells Urine Bacteria Hyaline Casts Peritoneal Tot Protein Peritoneal Albumin Peritoneal LDH Peritoneal Glucose COVID-19 ([facility]DO) COVID-19 Clin Com Blood Type Antibody Screen Crossmatch 06/17/24 06/17/24 06/18/24 06:08 09:39 05:50 WBC 11.6 H 11.4 H 8.4 RBC 2.70 L 2.68 L 2.55 L Hgb 9.7 L 9.7 L 9.4 L Hct 30.4 L 30.3 L 28.1 L MCV 112.6 H 113.1 H 110.2 H MCH 35.9 H 36.2 H 36.9 H MCHC 31.9 32.0 33.5 RDW 17.3 H 17.2 H 17.1 H Plt Count 128 L 145 L 136 L MPV 10.8 11.1 11.0 Immature Gran % (Auto) Neut % (Auto) Lymph % (Auto) [place] % (Auto) Eos % (Auto) Baso % (Auto) Lymph # (Auto) [place] # (Auto) Eos # (Auto) Baso # (Auto) Abs Immat Gran (auto) Absolute Neuts (auto) Absolute Nucleated RBC 0.000 0.000 0.000 Nucleated RBC % (auto) 0.0 0.0 0.0 Neutrophils % (Manual) Band Neutrophils % Lymphocytes % (Manual) Monocytes % (Manual) Eosinophils % (Manual) Abs Neuts (Manual) Lymphocytes # (Manual) Monocytes # (Manual) Eosinophils # (Manual) Platelet Estimate Plt Morphology Comment RBC Morphology [place] Cells Schistocytes Smear Path Review Hold Purple Top PT 18.7 H INR 1.5 H APTT O2 Saturation ABG pH at Pt Temp ABG pH (Temp Correct) ABG pCO2 at Pt Temp ABG pO2 at Pt Temp ABG HCO3 ABG Base Excess (Actual) Sodium 134 L Potassium 4.5 Chloride 107 Carbon Dioxide 18 L Anion Gap 14 BUN 23 H Creatinine 1.28 Estim Creat Clear Calc 42.9 Estimated GFR 41 POC Glucose Random Glucose 143 H Lactic Acid Calcium 8.5 Magnesium Total Bilirubin Direct Bilirubin AST ALT Alkaline Phosphatase Ammonia Total Creatine Kinase Troponin I High Sens B-Natriuretic Peptide Total Protein Albumin Urine Color Urine Appearance Urine pH Ur Specific [place] Urine Protein Urine Glucose (UA) Urine Ketones Urine Blood Urine Nitrite Ur Leukocyte Esterase Urine RBC Urine WBC Urine WBC Clumps Ur Squamous Epith Cells Urine Bacteria Hyaline Casts Peritoneal Tot Protein Peritoneal Albumin Peritoneal LDH Peritoneal Glucose COVID-19 ([facility]DO) COVID-19 Clin Com Blood Type Antibody Screen Crossmatch 06/18/24 06/18/24 06/19/24 06:05 10:36 05:46 WBC 8.9 RBC 2.54 L Hgb 9.2 L Hct 28.8 L MCV 113.4 H MCH 36.2 H MCHC 31.9 RDW 17.2 H Plt Count 144 L MPV 11.8 Immature Gran % (Auto) Cancelled Neut % (Auto) Cancelled Lymph % (Auto) Cancelled [place] % (Auto) Cancelled Eos % (Auto) Cancelled Baso % (Auto) Cancelled Lymph # (Auto) Cancelled [place] # (Auto) Cancelled Eos # (Auto) Cancelled Baso # (Auto) Cancelled Abs Immat Gran (auto) Cancelled Absolute Neuts (auto) Cancelled Absolute Nucleated RBC 0.000 Nucleated RBC % (auto) 0.0 Neutrophils % (Manual) 71 Band Neutrophils % 0 L Lymphocytes % (Manual) 15 L Monocytes % (Manual) 12 H Eosinophils % (Manual) 2 Abs Neuts (Manual) 6.3 Lymphocytes # (Manual) 1.3 Monocytes # (Manual) 1.1 Eosinophils # (Manual) 0.2 Platelet Estimate NORMAL Plt Morphology Comment NORMAL RBC Morphology NOTED [place] Cells 3+ (>5) Schistocytes 2+ (3-5) Smear Path Review Cancelled Hold Purple Top SEE NOTE PT 18.9 H INR 1.6 H APTT O2 Saturation ABG pH at Pt Temp ABG pH (Temp Correct) ABG pCO2 at Pt Temp ABG pO2 at Pt Temp ABG HCO3 ABG Base Excess (Actual) Sodium 133 L 132 L Potassium 3.9 4.6 Chloride 107 107 Carbon Dioxide 16 L 15 L Anion Gap 14 15 BUN 24 H 28 H Creatinine 1.47 H 1.80 H Estim Creat Clear Calc 37.4 30.5 Estimated GFR 35 28 POC Glucose Random Glucose 117 H 102 Lactic Acid Calcium 8.3 L 8.7 Magnesium Total Bilirubin Direct Bilirubin AST ALT Alkaline Phosphatase Ammonia 53 Total Creatine Kinase Troponin I High Sens B-Natriuretic Peptide Total Protein Albumin Urine Color Urine Appearance Urine pH Ur Specific [place] Urine Protein Urine Glucose (UA) Urine Ketones Urine Blood Urine Nitrite Ur Leukocyte Esterase Urine RBC Urine WBC Urine WBC Clumps Ur Squamous Epith Cells Urine Bacteria Hyaline Casts Peritoneal Tot Protein Peritoneal Albumin Peritoneal LDH Peritoneal Glucose COVID-19 ([facility]GUNDO) COVID-19 Clin Com Blood Type Antibody Screen Crossmatch 06/19/24 06/20/24 06/20/24 18:34 06:08 13:52 WBC 9.3 RBC 2.58 L Hgb 9.4 L Hct 29.4 L MCV 114.0 H MCH 36.4 H MCHC 32.0 RDW 17.4 H Plt Count 149 L MPV 11.1 Immature Gran % (Auto) Neut % (Auto) Lymph % (Auto) [place] % (Auto) Eos % (Auto) Baso % (Auto) Lymph # (Auto) [place] # (Auto) Eos # (Auto) Baso # (Auto) Abs Immat Gran (auto) Absolute Neuts (auto) Absolute Nucleated RBC 0.000 Nucleated RBC % (auto) 0.0 Neutrophils % (Manual) Band Neutrophils % Lymphocytes % (Manual) Monocytes % (Manual) Eosinophils % (Manual) Abs Neuts (Manual) Lymphocytes # (Manual) Monocytes # (Manual) Eosinophils # (Manual) Platelet Estimate Plt Morphology Comment RBC Morphology [place] Cells Schistocytes Smear Path Review Hold Purple Top PT INR APTT O2 Saturation ABG pH at Pt Temp ABG pH (Temp Correct) ABG pCO2 at Pt Temp ABG pO2 at Pt Temp ABG HCO3 ABG Base Excess (Actual) Sodium 133 L 132 L Potassium 3.8 3.9 Chloride 106 107 Carbon Dioxide 18 L 16 L Anion Gap 13 13 BUN 30 H 30 H Creatinine 2.04 H 2.02 H Estim Creat Clear Calc 26.9 27.2 Estimated GFR 24 24 POC Glucose Random Glucose 118 H 111 Lactic Acid Calcium 8.8 8.8 Magnesium Total Bilirubin Direct Bilirubin AST ALT Alkaline Phosphatase Ammonia Total Creatine Kinase Troponin I High Sens B-Natriuretic Peptide 610 H Total Protein Albumin Urine Color Urine Appearance Urine pH Ur Specific [place] Urine Protein Urine Glucose (UA) Urine Ketones Urine Blood Urine Nitrite Ur Leukocyte Esterase Urine RBC Urine WBC Urine WBC Clumps Ur Squamous Epith Cells Urine Bacteria Hyaline Casts Peritoneal Tot Protein Peritoneal Albumin Peritoneal LDH Peritoneal Glucose COVID-19 (SEGUNDO) COVID-19 Clin Com Blood Type Antibody Screen Crossmatch 06/21/24 06/21/24 06/22/24 06:57 17:13 05:21 WBC 8.3 8.9 8.3 RBC 2.26 L 2.40 L 2.20 L Hgb 8.2 L 8.8 L 8.0 L Hct 25.0 L 26.7 L 24.6 L MCV 110.6 H 111.3 H 111.8 H MCH 36.3 H 36.7 H 36.4 H MCHC 32.8 33.0 32.5 RDW 17.8 H 18.1 H 18.0 H Plt Count 147 L 147 L 143 L MPV 10.7 11.1 10.5 Immature Gran % (Auto) Neut % (Auto) Lymph % (Auto) [place] % (Auto) Eos % (Auto) Baso % (Auto) Lymph # (Auto) [place] # (Auto) Eos # (Auto) Baso # (Auto) Abs Immat Gran (auto) Absolute Neuts (auto) Absolute Nucleated RBC 0.000 0.000 0.000 Nucleated RBC % (auto) 0.0 0.0 0.0 Neutrophils % (Manual) Band Neutrophils % Lymphocytes % (Manual) Monocytes % (Manual) Eosinophils % (Manual) Abs Neuts (Manual) Lymphocytes # (Manual) Monocytes # (Manual) Eosinophils # (Manual) Platelet Estimate Plt Morphology Comment RBC Morphology Ana Luisa Cells Schistocytes Smear Path Review Hold Purple Top PT INR APTT O2 Saturation ABG pH at Pt Temp ABG pH (Temp Correct) ABG pCO2 at Pt Temp ABG pO2 at Pt Temp ABG HCO3 ABG Base Excess (Actual) Sodium 133 L 134 L Potassium 3.7 4.1 Chloride 106 109 H Carbon Dioxide 17 L 15 L Anion Gap 14 14 BUN 34 H 36 H Creatinine 2.05 H 2.38 H Estim Creat Clear Calc 26.8 24.3 Estimated GFR 24 20 POC Glucose Random Glucose 111 131 H Lactic Acid Calcium 9.1 9.0 Magnesium Total Bilirubin 3.1 H Direct Bilirubin 1.5 H AST 38 H ALT 20 Alkaline Phosphatase 70 Ammonia Total Creatine Kinase Troponin I High Sens B-Natriuretic Peptide Total Protein 5.5 L Albumin 3.1 L Urine Color Urine Appearance Urine pH Ur Specific Triangle Urine Protein Urine Glucose (UA) Urine Ketones Urine Blood Urine Nitrite Ur Leukocyte Esterase Urine RBC Urine WBC Urine WBC Clumps Ur Squamous Epith Cells Urine Bacteria Hyaline Casts Peritoneal Tot Protein Peritoneal Albumin Peritoneal LDH Peritoneal Glucose COVID-19 (SEGUNDO) COVID-19 Clin Com Blood Type O Positive Antibody Screen NEGATIVE Crossmatch See Detail 06/22/24 06/22/24 06/23/24 07:43 20:44 05:42 WBC RBC Hgb Hct MCV MCH MCHC RDW Plt Count MPV Immature Gran % (Auto) Neut % (Auto) Lymph % (Auto) [place] % (Auto) Eos % (Auto) Baso % (Auto) Lymph # (Auto) [place] # (Auto) Eos # (Auto) Baso # (Auto) Abs Immat Gran (auto) Absolute Neuts (auto) Absolute Nucleated RBC Nucleated RBC % (auto) Neutrophils % (Manual) Band Neutrophils % Lymphocytes % (Manual) Monocytes % (Manual) Eosinophils % (Manual) Abs Neuts (Manual) Lymphocytes # (Manual) Monocytes # (Manual) Eosinophils # (Manual) Platelet Estimate Plt Morphology Comment RBC Morphology Ana Luisa Cells Schistocytes Smear Path Review Hold Purple Top SEE NOTE PT 19.7 H INR 1.6 H APTT O2 Saturation ABG pH at Pt Temp ABG pH (Temp Correct) ABG pCO2 at Pt Temp ABG pO2 at Pt Temp ABG HCO3 ABG Base Excess (Actual) Sodium 134 L 136 136 Potassium 3.8 3.5 3.7 Chloride 108 108 108 Carbon Dioxide 18 L 18 L 19 L Anion Gap 12 14 13 BUN 38 H 41 H 42 H Creatinine 2.33 H 2.29 H 2.35 H Estim Creat Clear Calc 24.8 25.2 24.7 Estimated GFR 21 21 20 POC Glucose Random Glucose 116 H 135 H 120 H Lactic Acid Calcium 8.7 8.8 8.7 Magnesium Total Bilirubin 3.9 H Direct Bilirubin 1.7 H AST 36 H ALT 16 Alkaline Phosphatase 65 Ammonia Total Creatine Kinase Troponin I High Sens B-Natriuretic Peptide Total Protein 5.4 L Albumin 3.0 L Urine Color Urine Appearance Urine pH Ur Specific Triangle Urine Protein Urine Glucose (UA) Urine Ketones Urine Blood Urine Nitrite Ur Leukocyte Esterase Urine RBC Urine WBC Urine WBC Clumps Ur Squamous Epith Cells Urine Bacteria Hyaline Casts Peritoneal Tot Protein Peritoneal Albumin Peritoneal LDH Peritoneal Glucose COVID-19 (SEGUNDO) COVID-19 Clin Com Blood Type Antibody Screen Crossmatch 06/23/24 06/24/24 06/24/24 21:25 05:55 17:22 WBC 7.8 RBC 2.04 L Hgb 7.6 L 9.0 L Hct 22.6 L 27.0 L MCV 110.8 H MCH 37.3 H MCHC 33.6 RDW 18.2 H Plt Count 128 L MPV 10.7 Immature Gran % (Auto) Neut % (Auto) Lymph % (Auto) [place] % (Auto) Eos % (Auto) Baso % (Auto) Lymph # (Auto) [place] # (Auto) Eos # (Auto) Baso # (Auto) Abs Immat Gran (auto) Absolute Neuts (auto) Absolute Nucleated RBC 0.000 Nucleated RBC % (auto) 0.0 Neutrophils % (Manual) Band Neutrophils % Lymphocytes % (Manual) Monocytes % (Manual) Eosinophils % (Manual) Abs Neuts (Manual) Lymphocytes # (Manual) Monocytes # (Manual) Eosinophils # (Manual) Platelet Estimate Plt Morphology Comment RBC Morphology [place] Cells Schistocytes Smear Path Review Hold Purple Top SEE NOTE PT INR APTT O2 Saturation ABG pH at Pt Temp ABG pH (Temp Correct) ABG pCO2 at Pt Temp ABG pO2 at Pt Temp ABG HCO3 ABG Base Excess (Actual) Sodium 139 136 139 Potassium 3.8 4.0 3.7 Chloride 110 H 110 H 110 H Carbon Dioxide 20 L 16 L 21 L Anion Gap 13 14 12 BUN 42 H 42 H 43 H Creatinine 2.43 H 2.35 H 2.48 H Estim Creat Clear Calc 23.8 24.7 23.3 Estimated GFR 20 20 19 POC Glucose Random Glucose 146 H 110 137 H Lactic Acid Calcium 8.6 8.5 8.7 Magnesium Total Bilirubin Direct Bilirubin AST ALT Alkaline Phosphatase Ammonia Total Creatine Kinase Troponin I High Sens B-Natriuretic Peptide Total Protein Albumin Urine Color Urine Appearance Urine pH Ur Specific Triangle Urine Protein Urine Glucose (UA) Urine Ketones Urine Blood Urine Nitrite Ur Leukocyte Esterase Urine RBC Urine WBC Urine WBC Clumps Ur Squamous Epith Cells Urine Bacteria Hyaline Casts Peritoneal Tot Protein Peritoneal Albumin Peritoneal LDH Peritoneal Glucose COVID-19 (SEGUNDO) COVID-19 Clin Com Blood Type Antibody Screen Crossmatch 06/25/24 06/26/24 06/27/24 07:41 05:42 06:15 WBC 8.7 9.5 RBC 2.39 L 2.62 L Hgb 8.7 L 9.5 L Hct 25.8 L 28.5 L MCV 107.9 H 108.8 H MCH 36.4 H 36.3 H MCHC 33.7 33.3 RDW 20.9 H 20.4 H Plt Count 140 L 150 L MPV 10.8 10.7 Immature Gran % (Auto) Neut % (Auto) Lymph % (Auto) [place] % (Auto) Eos % (Auto) Baso % (Auto) Lymph # (Auto) [place] # (Auto) Eos # (Auto) Baso # (Auto) Abs Immat Gran (auto) Absolute Neuts (auto) Absolute Nucleated RBC 0.000 0.000 Nucleated RBC % (auto) 0.0 0.0 Neutrophils % (Manual) Band Neutrophils % Lymphocytes % (Manual) Monocytes % (Manual) Eosinophils % (Manual) Abs Neuts (Manual) Lymphocytes # (Manual) Monocytes # (Manual) Eosinophils # (Manual) Platelet Estimate Plt Morphology Comment RBC Morphology [place] Cells Schistocytes Smear Path Review Hold Purple Top PT INR APTT O2 Saturation ABG pH at Pt Temp ABG pH (Temp Correct) ABG pCO2 at Pt Temp ABG pO2 at Pt Temp ABG HCO3 ABG Base Excess (Actual) Sodium 139 140 140 Potassium 3.6 3.6 3.4 Chloride 112 H 109 H 107 Carbon Dioxide 20 L 20 L 18 L Anion Gap 11 L 15 18 BUN 41 H 50 H 51 H Creatinine 2.22 H 2.39 H 2.32 H Estim Creat Clear Calc 26.0 24.2 24.9 Estimated GFR 22 20 21 POC Glucose Random Glucose 100 119 H 136 H Lactic Acid Calcium 7.8 L D 8.8 D 9.0 Magnesium Total Bilirubin Direct Bilirubin AST ALT Alkaline Phosphatase Ammonia Total Creatine Kinase Troponin I High Sens B-Natriuretic Peptide Total Protein Albumin Urine Color Urine Appearance Urine pH Ur Specific [place] Urine Protein Urine Glucose (UA) Urine Ketones Urine Blood Urine Nitrite Ur Leukocyte Esterase Urine RBC Urine WBC Urine WBC Clumps Ur Squamous Epith Cells Urine Bacteria Hyaline Casts Peritoneal Tot Protein Peritoneal Albumin Peritoneal LDH Peritoneal Glucose COVID-19 (SEGUNDO) COVID-19 Clin Com Blood Type Antibody Screen Crossmatch 06/27/24 17:25 WBC RBC Hgb Hct MCV MCH MCHC RDW Plt Count MPV Immature Gran % (Auto) Neut % (Auto) Lymph % (Auto) [place] % (Auto) Eos % (Auto) Baso % (Auto) Lymph # (Auto) [place] # (Auto) Eos # (Auto) Baso # (Auto) Abs Immat Gran (auto) Absolute Neuts (auto) Absolute Nucleated RBC Nucleated RBC % (auto) Neutrophils % (Manual) Band Neutrophils % Lymphocytes % (Manual) Monocytes % (Manual) Eosinophils % (Manual) Abs Neuts (Manual) Lymphocytes # (Manual) Monocytes # (Manual) Eosinophils # (Manual) Platelet Estimate Plt Morphology Comment RBC Morphology [place] Cells Schistocytes Smear Path Review Hold Purple Top PT 20.6 H INR 1.7 H APTT O2 Saturation ABG pH at Pt Temp ABG pH (Temp Correct) ABG pCO2 at Pt Temp ABG pO2 at Pt Temp ABG HCO3 ABG Base Excess (Actual) Sodium Potassium Chloride Carbon Dioxide Anion Gap BUN Creatinine Estim Creat Clear Calc Estimated GFR POC Glucose Random Glucose Lactic Acid Calcium Magnesium Total Bilirubin Direct Bilirubin AST ALT Alkaline Phosphatase Ammonia Total Creatine Kinase Troponin I High Sens B-Natriuretic Peptide Total Protein Albumin Urine Color Urine Appearance Urine pH Ur Specific Triangle Urine Protein Urine Glucose (UA) Urine Ketones Urine Blood Urine Nitrite Ur Leukocyte Esterase Urine RBC Urine WBC Urine WBC Clumps Ur Squamous Epith Cells Urine Bacteria Hyaline Casts Peritoneal Tot Protein Peritoneal Albumin Peritoneal LDH Peritoneal Glucose COVID-19 (SEGUNDO) COVID-19 Clin Com Blood Type Antibody Screen Crossmatch Airway Mallampati Class: II TM Dist: >3cm Neck ROM: Full Heart: S1S2 Lungs: CTAB Other: Permanent bridge Assessment and Plan Final Anesthetic Review Family History of Problems with Anesthesia: No History of Problems with Anesthesia: No NPO: Yes ASA Class: IV Final Preanesthetic Review: No Changes in Pt Med Stat, Meds/Allgs Chart Reviewed, Consent Obtained/Reviewed and Anes Risks/Benef Reviewed Patient Risk: High Procedure Risk: Low Anesthetic Plan Anesthetic Plan: MAC: and Agree w/ Assess. and Plan Disposition: Standard PACU
--- NOTE | 2024-06-28 11:26 | MHC.SHP ---
Pre-Procedural Eval Section A - 24 Hr Update-Section A only Date of Service: 06/28/24 The patient is an INPATIENT: Yes The patient has been examined within 24 hours of the surgical procedure. The History & Physical has been completed within 30 days and I have reviewed it.: Yes Section B - Complete if H&P > 30 days Chief Complaint: Hepatic encephalpathy, decompensated cirrhosis Allergies: Allergies Allergy/AdvReac Type Severity Reaction Status Date / Time hydromorphone [From DILAUDID] Allergy Intermediate hives, Verified 06/11/24 16:46 itching losartan Allergy Intermediate Angioedema Verified 06/11/24 16:46 tramadol [From ULTRAM] Allergy Intermediate hives,itchi Verified 06/11/24 16:46 ng Plan Diagnosis/Plan: Unchanged I have reviewed the history and physical and performed a pertinent physical examination on my patient. No changes have occurred unless specified. Plan for EGD today Time Spent With Patient Time: Total time managing care of this patient today ____ minutes.
[2024-06-28] MEDS: Lactated Ringers 1,000 ML 80 ML IVCONT (11:28)
--- NOTE | 2024-06-28 11:31 | P.OP_ITS ---
Operative Note Operative Note Date of Service: 06/28/24 Narrative: Procedure: Esophagogastroduodenoscopy Endoscopist: Марина Montoya MD Indication: Anemia, cirrhosis Anesthesia Provider: Rizwan Jaimes CRNA Anesthesia Type: MAC ?? EGD Procedure:?? The procedure, indications, preparation and potential complications were rev iewed with the patient, who indicated understanding and gave written informed consent to proceed. A physical exam was performed. The endoscope was introduced through the mouth, and advanced to the second part of duodenum. The mucosa was carefully examined on slow withdrawal of the endoscope. The patient tolerated the procedure well. There were no immediate complications.? ? EGD Findings:? * Esophagus:? Diffuse whitish lesions with esophagitis of upper esophagus was noted consistent with berna esophagitis. The Z line was at 41 cm. Flat varices in lower esophagus. * Stomach:? There was a small raised nipple sign just below the GE junction along the lesser curvature of the fundus. However no obvious varix was seen under that. Scattered polyps in the fundus of the stomach. There was also erythema and erosions in the antrum along with a small healed ulcer measuring 4 mm. Diffuse congestion and erythema in mosaic pattern consistent with portal hypertensive gastropathy was noted in the whole stomach. * Duodenum:? Normal mucosa was noted in the whole of the examined duodenum. ? EGD Impressions:? * Berna esophagitis * Flat varices * ? gastric varix * Likely fundic gland polyps * Portal hypertensive gastropathy * Antral gastritis * Healed antral ulcer * Normal duodenum ?? Recommendations:?? * Multiple potential sources for anemia * Start oral fluconazole 400mg PO x 14 days * Cont omeprazole 20mg BID x 4 weeks and then once daily * Switch metoprolol to carvedilol 3.125 BID. Can be uptitrated as outpatient if HR and BP allows. * Pt has GI office appt next week.
--- NOTE | 2024-06-28 11:34 | PC.NURSE ---
Per Dr Jan wong to proceed with procedure without INR/Vit K dose. Team aware.
--- NOTE | 2024-06-28 13:18 | HO.PM.IMPN ---
Subjective Subjective Date of Service: 06/28/24 Interval History: anemia candidial esophagitis Review of Systems denies any abd pain or sob no fevers or chills Physical Exam Vital Signs: Vital Signs: Last Vital Signs Temp 97 F 06/28/24 12:05 Pulse 65 06/28/24 12:05 Resp 16 06/28/24 12:05 BP 144/66 H 06/28/24 12:05 Pulse Ox 97 06/28/24 12:05 O2 Del Method Room Air 06/28/24 12:05 BMI result Body Mass Index 30.4 General: AO X 3, no acute distress Resp: CTA bilateral. CVS: S1,S2,RRR, 2+ pitting edema in legs GI: +BS, NT, distention with signs of ascites; no asterixis Skin: No rash ext: the left arm is less swollen with echymosis, otherwise normal colour, not tense, able to move--swelling overall going down Neuro: motor grossly intact Psych: appropriate affect. Objective Data Active Medications Acetaminophen (Acetaminophen 325 Mg Tablet) 650 mg PO Q6H PRN PRN Reason: Pain, Mild (Pain Scale 1-3), fever or headache Last Admin: 06/27/24 20:23 Dose: 650 mg Documented By: ROMAN Albuterol Sulfate (Albuterol Sulfate 90 Mcg 8 Gm Inhaler) 2 puff INHALE RQID PRN PRN Reason: for wheezing Albuterol/Ipratropium (Albuterol/Iprat 2.5/0.5mg 3 Ml Ampul.Neb) 3 ml INHALE Q4H PRN PRN Reason: Wheezing Calcium Carbonate (Calcium Carbonate 750 Mg Tab.Chew) 750 mg PO Q4H PRN PRN Reason: Heartburn Fluoxetine HCl (Fluoxetine Hcl 20 Mg Capsule) 40 mg PO DAILY [facility] Last Admin: 06/28/24 07:48 Dose: 40 mg Documented By: FOGARTB Fluticasone/Umeclidinium/Vilanterol (Fluticasone/Umeclidinium/Vilanterol 200/62.5/25 Blst.W.Dev) 1 puff INHALE RDAILY [facility] Last Admin: 06/28/24 07:56 Dose: 1 puff Documented By: SCOTTY Gabapentin (Gabapentin 300 Mg Capsule) 300 mg PO BID [facility] Last Admin: 06/28/24 07:48 Dose: 300 mg Documented By: JAMILA Heparin Sodium (Porcine) (Heparin Sodium,Porcine Flush 50 Units/5 Ml Syringe) 50 units IVFLUSH QSHIFT [facility] Last Admin: 06/28/24 07:49 Dose: 50 units Documented By: JAMILA Ceftriaxone Sodium 1 gm/ (Sodium Chloride) 50 mls @ 100 mls/hr IV Q24H [facility] Last Infusion: 06/27/24 14:40 Dose: Infused Documented By: ANNAMARIE Lactated Ringer's (Lr) 1,000 mls @ 80 mls/hr IVCONT .[id number] [facility] Last Admin: 06/28/24 11:28 Dose: 80 mls/hr Documented By: FIFI Lactulose (Lactulose 20 Gm/30 Ml Solution) 30 gm PO BID [facility] Last Admin: 06/28/24 07:48 Dose: 30 gm Documented By: JAMILA Loratadine (Loratadine 10 Mg Tablet) 10 mg PO DAILY [facility] Last Admin: 06/28/24 07:50 Dose: Not Given Documented By: JAMILA Non-Admin Reason: NPO Magnesium Hydroxide (Milk Of Magnesia 30 Ml Oral.Susp) 30 ml PO DAILY PRN PRN Reason: Constipation Melatonin (Melatonin 3 Mg Tablet) 6 mg PO BEDTIME PRN PRN Reason: Insomnia Last Admin: 06/27/24 20:22 Dose: 6 mg Documented By: ROMAN Metoprolol Succinate (Metoprolol Succinate Er 25 Mg Tab.Er.24h) 25 mg PO DAILY [facility]; Protocol Last Admin: 06/28/24 07:48 Dose: 25 mg Documented By: JAMILA Midodrine (Midodrine Hcl 5 Mg Tablet) 5 mg PO TID [facility] Last Admin: 06/28/24 07:48 Dose: 5 mg Documented By: JAMILA Multivitamins/Vitamin C (Multivitamin Tablet) 1 tab PO DAILY [facility] Last Admin: 06/28/24 07:48 Dose: 1 tab Documented By: JAMILA Omeprazole (Omeprazole 20 Mg Capsule.Dr) 20 mg PO DAILY@0630 [facility] Last Admin: 06/28/24 05:45 Dose: 20 mg Documented By: ROMAN Ondansetron HCl (Ondansetron Hcl 4 Mg/2 Ml Vial) 4 mg IVPUSH Q8H PRN PRN Reason: Nausea and Vomiting Last Admin: 06/13/24 17:22 Dose: 4 mg Documented By: TEVIN Sodium Bicarbonate (Sodium Bicarbonate 650 Mg Tablet) 650 mg PO BID [facility] Last Admin: 06/28/24 07:48 Dose: 650 mg Documented By: JAMILA Sodium Chloride (0.9 % Sodium Chloride Flush 3 Ml Syringe) 3 ml IVFLUSH QSHIFT [facility] Last Admin: 06/28/24 07:49 Dose: 3 ml Documented By: JAMILA Vitamin D (Cholecalciferol (Vitamin D3) 25 Mcg Tablet) 50 mcg PO DAILY [facility] Last Admin: 06/28/24 07:48 Dose: 50 mcg Documented By: JAMILA Labs 06/26/24 05:42 06/27/24 06:15 Labs: Laboratory Results - last 24 hr 06/27/24 06/28/24 17:25 10:56 PT 20.6 H INR 1.7 H Blood Type O Positive Antibody Screen NEGATIVE Assessment and Plan (1) Anemia: Status: Acute (2) Acute kidney injury superimposed on CKD: Status: Acute Assessment and Plan: 74/F PMH etoh dependence in remission, etoh cirrhosis, copd, hfref, htn, breast ca, mood disorder, Hepatic encephalopathy--resolved. last ammonia level 56. continue Lactulose 30 bid hold for diarrhae,Rifaximin 500 bid anemia: +NGT lave on admission, no active bleed, H/H stable avoid heparin, ASA. H/H is down has trended down and transfused, ? frequent blood d as per chart review -transfused 1 unit on 06/15 and 1 unit on 06/24( 2 prbc). EGd-Berna esophagitis,Flat varices ,? gastric varix,Likely fundic gland polyps,Portal hypertensive gastropathy,Antral gastritis,Healed antral ulcer ,Normal duodenum . plan: added fluconazole 400 mg po x14 days , omeprazole 20 mg po bid ,coreg 3.125 mg bid. outpatient Gi follow up thrombocytopenia--chronic d/t liver disease, stable decompensated cirrhosis of the liver with ascietes LFTs are stable, Tbili down, INR stable around 1.6 paracentesis again 05/25, 3L and 06/22, 2L plan: continue midodrine, hold if BP high continue empiric Abx (ceftriaxone)-intiated 06/22. Triple phase CT to be done on outpatient basis once renal function is stable given octerotide/albumin. nephrology following CKD3B, SANDRA, worsening creatine, tought to be ? hepato renal vs cardio renal given fluid overloaded status . BNP 610 nephro -continue iv lasix 40 mg qd+adjusted spirnolactone to 50 mg qd. COPD--no exacerbation Inhalers PRN Left arm swelling, she denies falling on to that side.the appearance is that of hematoma, has good pulse coloration, no cold, suspect infiltrated IV, no evidence of compartmental syndrome. CT of the arm showed Fluidlike density circumferentially about the distal forearm and hand compatible with edema, cellulitis, or combination of these. normal WBC, no fever, CPK normal. Vascular surgery rec conservative management---swelling is signficantly down. continue to moniter chronic HFeEF. continue metoprolol and Lasix as above. Mood disorder-SSRI. Abnormal MRI with concern for pancreatitic mass -study degraded by motion -CT w/o contrast--> mass not seen, noted prior liver lesion -repeat study on outpatient basis (triple phase CT ) DVT prophylaxis--no heparin d/t anemia, gib needing transfusion, baseline elevated inr compression device d/w GI in detail and patient in detailed length -called [facility] for possible transfer. called patient daughter -left message . Quality Stroke Does the patient have a stroke diagnosis?: No VTE Prior VTE?: No VTE Risk Level:: Medical - moderate - high VTE Device Contraindication: Treatment Not Indicated VTE Drug Contraindication: N/A - Med Ordered
[2024-06-28] MEDS: cefTRIAXone sodium 1 GM in 0.9 % Sodium Chloride 50 ML IV (15:46)
[2024-06-28] MEDS: Melatonin 3 MG TABLET 6 MG PO (21:03)
[2024-06-28] MEDS: Acetaminophen 325 MG TABLET 650 MG PO (21:04)
[2024-06-29] MEDS: Heparin Sodium,Porcine Flush 50 UNITS/5 ML SYRINGE IVFLUSH ×2 (01:40→09:15)
[2024-06-29 04:00] VITALS: BP 118/56; PULSE 63; RESP 18; TEMP 36.2; O2SAT 98
[2024-06-29] MEDS: Fluticasone/Umeclidinium/Vilanterol 200/62.5/25 BLST.W.DEV 1 PUFF INHALE (07:58)
[2024-06-29 07:59] VITALS: PULSE 61; RESP 18; O2SAT 98
[2024-06-29 08:00] VITALS: BP 115/57; PULSE 61; RESP 16; TEMP 36.7; O2SAT 97
[2024-06-29 08:40] LABS: Anion Gap 13 (12-20); Blood Urea Nitrogen 51 mg/dL (9-16); Calcium 9.3 mg/dL (8.4-10.2); Carbon Dioxide 22 mmol/L (22-29); Chloride 107 mmol/L (96-108); Creatinine Clr Calc Pharmacy 24.3; Estimated Glomerular Filt Rate 20; Glucose Random 110 mg/dL (60-115); Potassium 4.1 mmol/L (3.3-5.1); Sodium 138 mmol/L (135-145)
[2024-06-29 09:03] VITALS: BP 128/60; PULSE 60
[2024-06-29] MEDS: Lactulose 20 GM/30 ML SOLUTION 30 GM PO (09:15)
[2024-06-29] MEDS: FLUoxetine HCl 20 MG CAPSULE 40 MG PO (09:16)
[2024-06-29] MEDS: Gabapentin 300 MG CAPSULE PO (09:16)
[2024-06-29] MEDS: Loratadine 10 MG TABLET PO (09:16)
[2024-06-29] MEDS: Fluconazole 100 MG TABLET 400 MG PO (09:16)
[2024-06-29] MEDS: Omeprazole 20 MG CAPSULE.DR PO (09:16)
[2024-06-29] MEDS: Multivitamin TABLET 1 TAB PO (09:16)
[2024-06-29] MEDS: Midodrine HCl 5 MG TABLET PO (09:16)
[2024-06-29] MEDS: Cholecalciferol (Vitamin D3) 25 MCG TABLET 50 MCG PO (09:16)
[2024-06-29] MEDS: Spironolactone 25 MG TABLET 50 MG PO (09:16)
[2024-06-29] MEDS: carvediloL 3.125 MG TABLET PO (09:17)
[2024-06-29] MEDS: Furosemide 40 MG TABLET PO (09:17)
[2024-06-29] MEDS: Sodium Bicarbonate 650 MG TABLET PO (09:17)
--- NOTE | 2024-06-29 09:39 | P.PNNP_ITS ---
Subjective Subjective Date of Service: 06/29/24 Interval history: Events noted. All recent data reviewed; D/W hospitalist Physical Exam 2 Vital Signs: Vital Signs: Last Vital Signs Temp 98.0 F 06/29/24 08:00 Pulse 60 06/29/24 09:03 Resp 16 06/29/24 08:00 BP 128/60 06/29/24 09:03 Pulse Ox 97 06/29/24 08:00 O2 Del Method Room Air 06/29/24 08:00 BMI result Body Mass Index 30.4 Const: General: comfortable Eyes: EOM: EOMs intact bilaterally Neck: Neck: Yes supple Resp: Auscultation: diminished lung sounds Cardio: Rate: regular rate GI: Palpation (GI): Soft to palpation Neuro: General: moves all extremities Objective Data Labs 06/26/24 05:42 06/29/24 07:57 Labs: Laboratory Results - last 24 hr 06/28/24 06/29/24 10:56 07:57 Sodium 138 Potassium 4.1 D Chloride 107 Carbon Dioxide 22 Anion Gap 13 BUN 51 H Creatinine 2.38 H Estim Creat Clear Calc 24.3 Estimated GFR 20 Random Glucose 110 Calcium 9.3 Blood Type O Positive Antibody Screen NEGATIVE Microbiology Microbiology Results: Microbiology 06/14/24 18:13 Blood - Venous Blood Culture - Final No growth after 5 days. 06/14/24 18:14 Blood - Venous Blood Culture - Final No growth after 5 days. 06/11/24 23:16 Abdominal Fluid Gram Stain - Final 06/11/24 23:16 Abdominal Fluid Anaerobic Culture - Final NO GROWTH AFTER 5 DAYS 06/11/24 23:16 Abdominal Fluid Body Fluid Culture - Final No growth after 2 days Procedures Date of Service Date of Service: 06/29/24 Assessment & Plan Assessment and plan (1) Acute kidney injury superimposed on CKD: Status: Acute Plan 74-year-old woman with acute kidney injury superimposed on CKD in the setting of cirrhosis Was on Octreotide and Midodrine; C/W current dose of lasix & Spironolactone; Serum creatinine stable Low sodium diet; C/W rest of current management; Needs outpatient follow up with [facility] in 1 week if D/Alex Progress Note: Quality Stroke Does the patient have a stroke diagnosis?: No
--- NOTE | 2024-06-29 10:53 | MHC.CM.PN ---
Per MD rounds patient medically cleared for dc to [facility]. [facility] transport scheduled to [facility] for 1pm. Patient, RN and MD aware. IMM delivered.
--- NOTE | 2024-06-29 11:00 | HO.POSTANES ---
Post Anesthesia Evaluation Post Anesthesia Evaluation Date of Service: 06/29/24 Vital Signs: Vital Signs Temp Pulse Resp BP Pulse Ox O2 Del Method 06/29/24 09:03 60 128/60 06/29/24 08:00 98.0 F 61 16 115/57 L 97 Room Air 06/29/24 07:59 61 18 06/29/24 04:00 97.2 F 63 18 118/56 L 98 Room Air Anesthesia: Monitored Mental Status: Awake Pain Control: Satisfactory Nausea/Vomiting: None Hydration: Adequate Anesthesia-Related Issues: No Anes. Related Issues
--- NOTE | 2024-06-29 12:21 | P.DS_ITS ---
DS: Providers Provider Date of Service: 06/29/24 Date of admission: 06/12/24 09:39 Date of discharge: 06/29/24 Primary care physician: Adele Knight MD Consults: 06/12/24 09:28 Consult to Nephrology Routine Consulting Provider: [facility] Reason for consultation: CKD, SANDRA, rule HRS 06/14/24 09:44 Consult to Gastroenterology Routine Consulting Provider: Марина Montoya Reason for consultation: gi bleeding, hepatic encephalopathy 06/14/24 15:51 Consult to Vascular Surgery Routine Consulting Provider: [facility] Reason for consultation: Left arm hematoma Has provider been notified: No DS: Diagnosis Discharge Diagnosis (1) Acute kidney injury superimposed on CKD: Status: Acute DS: Summary Hospital Course Hospital Course: 74-year-old female with history of alcohol abuse, cirrhosis w/ ascites requiring frequent paracentesis (last 2.4L on 05/17), histopry of hepatic encephalopathy, CKD3, COPD, chronic HFpEF, HTN who presents the ED on advise of her GI Dr Dr. Montoya after her daughter called stating that she has been falling, confused, dizzy, weak and short of breath for at least 2 days. She has also noted increased abdominal girth, with abdo discomfort, N/V and diarrhea all of which seem better today. She is noted to have worsening renal function with Creatine of 1.9 baseline around 1.3. She recently had adactone increased to 100. She had an MRI of the abdomen in [facility] showing a pancreatic cyst not seen on CT without contrast from 06/11/24. Patient is less confused today after getting lactulose earlier, ammonia level was 90 at that time. Hospital course: Patient was admitted for decompensated liver disease with hepatic encephalopathy, anemia, SANDRA on CKD: Workup revealed elevated creatinine, ammonia, patient had also abnormal MRI( december/2023) if with questionable pancreatic 2.1 cm cyst in the pancreatic head-CT abdomen with contrast did not show this finding: Patient was started on lactulose, hydration, also received paracentesis 2 times this admission, received octreotide and albumin also. Patient was seen by both GI and Nephrology(acute kidney injury superimposed on CKD in the setting of cirrhosis)-: Patient creatinine is around 2.3 which become new baseline, patient was placed on diuretics considering decompensated liver cirrhosis and edema-patient is maintaining creatinine around 2.3 range, diuresing well, inaddition had paracentesis x2 ( 5 liter fluid removed),Nephro recommended to continue Lasix 40 mg daily and spironolactone 50 b.i.d.. In addition GI also saw the patient EGD is done for anemia:impression and recommendations below: Berna esophagitis,Flat varices ,? gastric varix,Likely fundic gland polyps,Portal hypertensive gastropathy,Antral gastritis,Healed antral ulcer ,Normal duodenum . Gi recomended - fluconazole 400 mg po x14 days , omeprazole 20 mg po bid ,coreg 3.125 mg bid. Patient initially received IV ceftriaxone also for prophylaxis empiric, but upon discharge Gi recomended no other prophylax antibiotics . patient had also abnormal MRI if with questionable pancreatic 2.1 cm cyst in the pancreatic head-CT abdomen with contrast did not show this finding: Consider outpatient triple phase CT . outpatient Gi follow up. Left arm swelling, she denies falling on to that side.the appearance is that of hematoma, has good pulse coloration, no cold, suspect infiltrated IV, no evidence of compartmental syndrome. CT of the arm showed Fluidlike density circumferentially about the distal forearm and hand compatible with edema, cellulitis, or combination of these. normal WBC, no fever, CPK normal. Patient's swelling improved significantly already Vascular surgery rec conservative management. plan: Continue lactulose 20 gm p.o. t.i.d.-goal is 3-4 BMs a day. Fluconazole 400 mg daily for 12 more days. Omeprazole 20 mg p.o. b.i.d., Coreg 3.125 mg p.o. b.i.d. Consider further outpatient imaging study CT versus MRI for pancreatic cyst lesion/mass. Patient is to monitor CBC, BMP, LFTs out patiently in 1 week. Follow-up with the GI and Nephrology outpatient. Above management discussed with the patient and her daughter in detail length they both understand and in agreement with the above plan, time spent 40 minute. Time Attestation Total time managing care of this patient today: 40 mintues. Discharge Coordination Time (in mins): 40 min Quality: Safe Use of Opioids Does Pt have an Active Cancer Diagnosis on the Problem List?: No Quality: Stroke Does the patient have a stroke diagnosis?: No Physical Exam Vital Signs: Vital Signs: Last Vital Signs Temp 98.0 F 06/29/24 08:00 Pulse 60 06/29/24 09:03 Resp 16 06/29/24 08:00 BP 128/60 06/29/24 09:03 Pulse Ox 97 06/29/24 08:00 O2 Del Method Room Air 06/29/24 08:00 BMI result Body Mass Index 30.4 General: AO X 3, no acute distress Resp: CTA bilateral. CVS: S1,S2,RRR, 2+ pitting edema in legs GI: +BS, NT, distention with signs of ascites; no asterixis Skin: No rash ext: the left arm swelling resolved ,eccymosis also improving Neuro: motor grossly intact Psych: appropriate affect. DS: Data Data Completed and Pending Completed studies during hospitalization [Text1]: Procedures Drainage of Peritoneal Cavity, Percutaneous Approach (03/31/24) Labs on day of discharge: Laboratory Results - last 24 hr 06/29/24 07:57 Sodium 138 Potassium 4.1 D Chloride 107 Carbon Dioxide 22 Anion Gap 13 BUN 51 H Creatinine 2.38 H Estim Creat Clear Calc 24.3 Estimated GFR 20 Random Glucose 110 Calcium 9.3 Imaging Chest x-ray: Radiologist's impression: ITS Impressions Abdomen/Pelvis CT 06/11/24 23:25 IMPRESSION: 1. Cirrhosis with a large volume of ascites. 2. Cholelithiasis. 3. Nonobstructing 3 mm calculus in the lower pole of the right kidney. 4. Sigmoid diverticulosis without evidence of acute diverticulitis. 5. Cardiomegaly. 6. A 1.8 cm cystic lesion in the pancreatic head is not appreciably changed as compared to prior studies. The known hepatic lesion is not well-seen on this unenhanced CT 7. Anasarca. Fleischner guidelines were followed. Paracentesis Ultrasound 06/13/24 14:48 IMPRESSION: Ultrasound-guided paracentesis as described above. No immediate complications Electronically signed by: Ben Quintana MD 06/22/2024 02:59 PM EDT Venous Duplex 06/13/24 20:33 IMPRESSION: 1. No evidence of deep venous thrombosis involving the left upper extremity. 2. Within the proximal upper extremity there is a 9.8 x 3.7 x 3.4 cm heterogeneous fluid collection with internal echoes. This may represent a hematoma versus other fluid collection. Electronically signed by: Mohit Cho MD 06/13/2024 09:12 PM EDT RP Chest X-Ray 06/14/24 09:16 IMPRESSION: The side port of the enteric tube projects at the level of the lower esophagus and the tip of the enteric tube projects at the level of the gastroesophageal junction. Recommend advancement to prevent aspiration. The report will be called to the ordering clinician by a [facility] Head Silverman. Electronically signed by: Shanelle Cm MD 06/14/2024 11:18 AM EDT RP Chest X-Ray 06/14/24 11:30 IMPRESSION: The enteric tube has been advanced with the side port projecting at the level of the gastroesophageal junction and the tip projecting over the proximal stomach. Recommend further slight advancement to ensure side-port is below the diaphragm. Electronically signed by: Shanelle Cm MD 06/14/2024 01:07 PM EDT RP Hand CT 06/14/24 17:33 IMPRESSION: 1. Fluidlike density circumferentially about the distal forearm and hand compatible with edema, cellulitis, or combination of these. No focal fluid collection identified. 2. Of note in my review of prior venous ultrasound examination of the left upper extremity the suspected fluid collection is within the upper extremity in the biceps region which was not imaged on this exam. Therefore consider follow-up imaging of the upper extremity/humerus region with CT or MRI if thought clinically necessary to evaluate for hematoma. 3. Advanced osteoarthritis first carpometacarpal joint similar to prior radiographs 2020. 4. Chondrocalcinosis throughout the wrist. 5. Mild osteoarthritis of the IP joint of the thumb. Electronically signed by: Adan Liu MD 06/14/2024 07:44 PM EDT RP Head CT 06/14/24 18:02 IMPRESSION: 1. No evidence of acute intracranial hemorrhage or edematous territorial infarction. 2. Moderate underlying microangiopathy and generalized cerebral volume loss. Electronically signed by: Jaciel Pierce DO 06/14/2024 09:24 PM EDT RP Chest X-Ray 06/21/24 19:20 IMPRESSION: Hypoexpanded but otherwise no evidence of acute disease. Electronically signed by: Otf Rao MD 06/21/2024 08:37 PM EDT RP Paracentesis Ultrasound 06/22/24 10:00 IMPRESSION: Ultrasound-guided paracentesis as described above. No immediate complications Electronically signed by: Ben Quintana MD 06/22/2024 03:06 PM EDT RP Venous Duplex 06/24/24 08:48 IMPRESSION: 1. No evidence of deep venous thrombosis involving the bilateral lower extremities. 2. Bilateral Bruce's cysts. Electronically signed by: Pranav Morales MD 06/24/2024 09:35 AM EDT RP Discharge Plan Discharge Anticipated Discharge Date/Time: 06/29/24 12:00 Patient Disposition: Xfer SNF Discharge Diagnosis: decompensated liver dis , anemia ,sandra on ckd Referrals: [facility] [Outside] - 1 Day (short term rehab) Zay Morrow MD [Physician] - 1 Week Adele Knight MD [Primary Care Provider] - 1 Week Yariel Barragan MD [Physician] - 1 Week Марина Montoya MD [Physician] - 1 Week Discharge Medications: New carvedilol 3.125 mg Tablet 3.125 mg PO BID Qty: 1 0RF Protocol: Hold for SBP/HR < HOLD for SBP < : 90 HOLD for HR < : 60 spironolactone 25 mg Tablet 50 mg PO BID@0900,1800 Qty: 1 0RF Protocol: Hold for SBP< HOLD for SBP < : 90 lactulose 20 gram/30 mL Solution 30 g PO BID Qty: 180 0RF fluconazole 100 mg Tablet 400 mg PO DAILY Qty: 12 0RF Continued fluoxetine 40 mg capsule 40 mg PO DAILY Qty: 90 3RF gabapentin 300 mg capsule 300 mg PO BID Qty: 180 1RF Trelegy Ellipta 200-62.5-25 mcg blister with device 1 inh inhalation DAILY Qty: 180 3RF (DME) compression stockings See Rx Instructions .Route .MEDSUPPLY Qty: 1 0RF Rx Instructions: 20-30 mm Hg; over the calf vitamin B complex Tablet 1 tab PO DAILY acetaminophen 500 mg Tablet 500 mg PO BID PRN (Reason: Pain) midodrine 5 mg Tablet 5 mg PO TID Qty: 270 0RF albuterol sulfate 90 mcg/actuation HFA aerosol inhaler 2 puff inhalation QID PRN (Reason: for wheezing) spironolactone 50 mg tablet 100 mg PO DAILY aspirin 81 mg tablet,delayed release (DR/EC) 81 mg PO DAILY cholecalciferol (vitamin D3) 50 mcg (2,000 unit) capsule 50 mcg PO DAILY Changed furosemide 20 mg tablet 40 mg PO DAILY Qty: 90 0RF omeprazole 20 mg Capsule,Delayed Release(Dr/Ec) 20 mg PO BID Qty: 1 0RF Discontinued metoprolol succinate 25 mg tablet extended release 24 hr 25 mg PO DAILY Qty: 90 3RF Discharge Orders: Discharge Order (Routine); Ordered 06/29/24 Ordered By: Sebas Sarkar Diet: Advance to usual diet Activity on Discharge: As tolerated Stand Alone Forms: Patient Portal Discharge page Print Language: Emirati Care Plan Goals: Patient was admitted for decompensated liver disease with hepatic encephalopath y, anemia, SANDRA on CKD: Workup revealed elevated creatinine, ammonia, patient had also abnormal MRI( december/2023) if with questionable pancreatic 2.1 cm cyst in the pancreatic head-CT abdomen with contrast did not show this finding: Patient was started on lactulose, hydration, also received paracentesis 2 times this admission, received octreotide and albumin also. Patient was seen by both GI and Nephrology: Patient creatinine is around 2.3 which become new baseline, patient was placed on diuretics considering decompensated liver cirrhosis and edema-patient is maintaining creatinine around 2.3 range, diuresing well, Nephro recommended to continue Lasix 40 mg daily and spironolactone 50 b.i.d.. In addition GI also saw the patient EGD is done for anemia:impression and recommendations below: Berna esophagitis,Flat varices ,? gastric varix,Likely fundic gland polyps,Portal hypertensive gastropathy,Antral gastritis,Healed antral ulcer ,Normal duodenum . Gi recomended - fluconazole 400 mg po x14 days , omeprazole 20 mg po bid ,coreg 3.125 mg bid. Patient initially received IV ceftriaxone also for prophylaxis empiric, but upon discharge Gi recomended no other prophylax antibiotics . patient had also abnormal MRI if with questionable pancreatic 2.1 cm cyst in the pancreatic head-CT abdomen with contrast did not show this finding: Consider outpatient triple phase CT or MRI. outpatient Gi follow up. Left arm swelling, she denies falling on to that side.the appearance is that of hematoma, has good pulse coloration, no cold, suspect infiltrated IV, no evidence of compartmental syndrome. CT of the arm showed Fluidlike density circumferentially about the distal forearm and hand compatible with edema, cellulitis, or combination of these. normal WBC, no fever, CPK normal. Patient's swelling improved significantly already Vascular surgery rec conservative management. Patient is to monitor CBC, BMP, LFTs out patiently in 1 week. Follow-up with the GI and Nephrology outpatient. Health Concerns: As above. Plan of Treatment: As above. Assessment: As above.
--- NOTE | 2024-06-29 12:22 | HO.REMOVAL ---
Removal of PICC/Midline Removal of PICC/Midline: Removal of Midline: 1. Date: 06/29/2024 2. Reason removed: MD order, No longer need 3. Inserted length: 9 cm 4. Removed length: 9 cm 5. A dressing was placed over the site upon removal. No edema, hematoma or bleeding at the site. Patient tolerated the procedure well.
[2024-06-29 12:33] VITALS: BP 128/60; PULSE 60
== END 2024-06-29 13:35 | disposition skilled nursing facility (03) | DRG 432 ==
LOC: HO.ED 06-12 00:46 → HO.EDOVER 06-12 09:45 → HO.S3 06-13 19:21
PROVIDERS: Family Medicine; Internal Medicine; Physician Assistant; Physician Assistant Medical; Student in an Organized Health Care Education/Training Program; Admitting Provider Internal Medicine; Emergency Provider Emergency Medicine; PCP Internal Medicine; Visit Provider Internal Medicine
PROC: 0DJ08ZZ Inspection of Upper Intestinal Tract, Via Natural or Artificial Opening Endoscopic (ICD-10-PCS; CPT 43235; principal; 2024-06-28 13:30)
DX: K70.31 Alcoholic cirrhosis of liver with ascites (principal); K76.7 Hepatorenal syndrome; D61.818 Other pancytopenia; I13.0 Hypertensive heart and chronic kidney disease with heart failure and stage 1 through stage 4 chronic kidney disease, or unspecified chronic kidney disease; N17.9 Acute kidney failure, unspecified; I50.32 Chronic diastolic (congestive) heart failure; N39.0 Urinary tract infection, site not specified; E87.20 Acidosis, unspecified; B37.81 Candidal esophagitis; I85.10 Secondary esophageal varices without bleeding; K76.6 Portal hypertension; K76.82 Hepatic encephalopathy; J44.9 Chronic obstructive pulmonary disease, unspecified; F10.21 Alcohol dependence, in remission; D63.1 Anemia in chronic kidney disease; D69.59 Other secondary thrombocytopenia; F39 Unspecified mood [affective] disorder; K29.70 Gastritis, unspecified, without bleeding; T47.3X6A Underdosing of saline and osmotic laxatives, initial encounter; M79.81 Nontraumatic hematoma of soft tissue; I86.4 Gastric varices; K31.7 Polyp of stomach and duodenum; R93.3 Abnormal findings on diagnostic imaging of other parts of digestive tract; K31.89 Other diseases of stomach and duodenum; N18.32 Chronic kidney disease, stage 3b; Z91.128 Patient's intentional underdosing of medication regimen for other reason; Z90.11 Acquired absence of right breast and nipple; Z86.14 Personal history of Methicillin resistant Staphylococcus aureus infection; Z20.822 Contact with and (suspected) exposure to COVID-19; Z79.51 Long term (current) use of inhaled steroids; Z79.82 Long term (current) use of aspirin; Z79.899 Other long term (current) drug therapy
CPT/HCPCS: 36410; 36415; 36600; 49083; 70450; 71045; 73200; 74176; 80048; 80076; 81001; 82042; 82140; 82550; 82803; 82945; 82947; 83605; 83615; 83735; 83880; 84157; 84484; 85007; 85014; 85018; 85025; 85027; 85610; 85730; 86850; 86900; 86901; 86923; 87040; 87070; 87073; 87205; 87635; 92950; 93005; 93970; 93971; 94640; 97116; 97162; 97530; 99285; C1751; C1758; J0696; J1642; J1644; J1940; J2270; J2354; J2405; J2470; J2704; J7120; P9016; P9047

== ENCOUNTER 2024-06-12 09:39 | Outpatient (BNV) | payer MEDICARE, SELFPAY | END 2024-06-13 14:48 | PROVIDERS: Admitting Provider Internal Medicine; Emergency Provider Emergency Medicine; PCP Internal Medicine; Visit Provider Radiology Diagnostic Radiology | DX: R18.8 Other ascites (principal) | CPT/HCPCS: 49083 ==

== ENCOUNTER 2024-06-12 09:39 | Outpatient (BNV) | payer MEDICARE, SELFPAY | END 2024-06-22 10:00 | PROVIDERS: Admitting Provider Internal Medicine; Emergency Provider Emergency Medicine; PCP Internal Medicine; Visit Provider Radiology Diagnostic Radiology | DX: R18.8 Other ascites (principal) | CPT/HCPCS: 49083 ==

== ENCOUNTER → 2024-06-12 09:39 | Outpatient (BNV) | payer MEDICARE, SELFPAY | PROVIDERS: Admitting Provider Internal Medicine; Emergency Provider Emergency Medicine; PCP Internal Medicine; Visit Provider Internal Medicine | DX: D64.9 Anemia, unspecified (principal); K74.60 Unspecified cirrhosis of liver; B37.81 Candidal esophagitis; I85.00 Esophageal varices without bleeding | CPT/HCPCS: 43235; 99223; 99232; 99233 ==

== ENCOUNTER → 2024-06-12 09:39 | Outpatient (BNV) | payer MEDICARE, SELFPAY | PROVIDERS: Admitting Provider Internal Medicine; Emergency Provider Emergency Medicine; PCP Internal Medicine; Visit Provider Surgery Vascular Surgery | DX: S40.022A Contusion of left upper arm, initial encounter (principal) | CPT/HCPCS: 99222 ==

== ENCOUNTER → 2024-06-12 09:39 | Outpatient (BNV) | payer MEDICARE, SELFPAY | PROVIDERS: Admitting Provider Internal Medicine; Emergency Provider Emergency Medicine; PCP Internal Medicine; Visit Provider Internal Medicine | DX: N17.9 Acute kidney failure, unspecified (principal); N18.30 Chronic kidney disease, stage 3 unspecified | CPT/HCPCS: 99222; 99231; 99232; 99233; 99239 ==

== ENCOUNTER → 2024-06-12 09:39 | Outpatient (BNV) | payer MEDICARE, SELFPAY | PROVIDERS: Admitting Provider Internal Medicine; Emergency Provider Emergency Medicine; PCP Internal Medicine; Visit Provider Internal Medicine Hypertension Specialist | DX: N17.9 Acute kidney failure, unspecified (principal); N18.30 Chronic kidney disease, stage 3 unspecified | CPT/HCPCS: 99222; 99223; 99232 ==

== ENCOUNTER 2024-07-03 16:44 | Emergency (ER) | payer MEDICARE, SELFPAY ==
--- NOTE | 2024-07-03 | ECG_ITS ---
Test Reason : SOB Blood Pressure : / mmHG Vent. Rate : 074 BPM Atrial Rate : 074 BPM P-R Int : 168 ms QRS Dur : 078 ms QT Int : 448 ms P-R-T Axes : 103 061 046 degrees QTc Int : 497 ms Sinus rhythm with Premature atrial complexes Low voltage QRS Cannot rule out Anterior infarct , age undetermined Abnormal ECG When compared with ECG of 12-JUN-2024 03:05, Sinus rhythm has replaced Atrial fibrillation Vent. rate has decreased BY 61 BPM Nonspecific T wave abnormality, improved in Inferior leads Referred By: Jc Degroot Electronically Signed By:OSCAR RICH
--- NOTE | ~2024-07-03 | XR_ITS ---
EXAMINATION: XR CHEST CLINICAL INFORMATION: CHF COMPARISON: Chest x-ray on 06/21/2024 TECHNIQUE: Frontal view of the chest was obtained. FINDINGS: The cardiac silhouette is normal. There is mild diffuse bronchial wall thickening. There are no areas of consolidation. There are no pleural effusions or pneumothoraces. The bones and soft tissues are unremarkable for the patient's age. XR/XR chest 1V IMPRESSION: Bronchial wall thickening may be infectious and/or inflammatory in etiology. Electronically signed by: Kenya Henry MD 07/03/2024 08:08 PM EDT
--- NOTE | 2024-07-03 17:11 | ED.AMS ---
HPI - Altered Mental Status General Chief Complaint: Dyspnea Stated Complaint: hallucinations,ams Time Seen by Provider: 07/03/24 17:10 Source: patient Mode of arrival: EMS Limitations: no limitations History of Present Illness ED Provider: anabela GARCES narrative: 74-year-old female with history of alcohol abuse, cirrhosis w/ ascites requiring frequent paracentesis (last 2.L on 06/22and3 L on 06/13), histopry of hepatic encephalopathy, CKD3, COPD, chronic HFpEF, HTN does discharge on 06/29 admitted for hepatic encephalopathy with ammonia level of 99 on 06/12/2024 comes back as for last 2 days patient has been not able to sleep and confused and foggy taking her lactulose having bowel movement 4-5 loose bowels a day no recent fall no fever no chills no urinary complaints Related Data Home Medications ?Medication ?Instructions ?Recorded ?Confirmed aspirin 81 mg tablet,delayed 81 mg PO DAILY 12/18/20 06/12/24 release cholecalciferol (vitamin D3) 50 50 mcg PO DAILY 12/18/20 06/12/24 mcg (2,000 unit) capsule acetaminophen 500 mg tablet 500 mg PO BID PRN Pain 03/31/24 06/12/24 vitamin B complex 1 tab PO DAILY 03/31/24 06/12/24 albuterol sulfate 90 mcg/actuation 2 puff inhalation QID PRN for 06/12/24 06/12/24 aerosol inhaler wheezing spironolactone 50 mg tablet 100 mg PO DAILY 06/12/24 06/12/24 Previous Rx's ?Medication ?Instructions ?Recorded fluoxetine 40 mg capsule 40 mg PO DAILY #90 caps 06/16/23 gabapentin 300 mg capsule 300 mg PO BID #180 caps 11/22/23 fluticasone fur. 200 mcg-umeclid 1 inh inhalation DAILY #180 ea 03/06/24 62.5 mcg-vilant 25 mcg inhalat.powder (Trelegy Ellipta) compression stockings #1 ea 03/29/24 midodrine 5 mg tablet 5 mg PO TID #270 tabs 04/03/24 carvedilol 3.125 mg tablet 3.125 mg PO BID #1 tab 06/29/24 fluconazole 100 mg tablet 400 mg (4 x 100 mg) PO DAILY #12 06/29/24 tabs furosemide 20 mg tablet 40 mg (2 x 20 mg) PO DAILY #90 tabs 06/29/24 lactulose 20 gram/30 mL oral 30 g (45 mL) PO BID #180 mL 06/29/24 solution omeprazole 20 mg capsule,delayed 20 mg PO BID #1 cap 06/29/24 release spironolactone 25 mg tablet 50 mg PO BID@0900,1800 #1 tab 06/29/24 Allergies Allergy/AdvReac Type Severity Reaction Status Date / Time hydromorphone [From DILAUDID] Allergy Intermediate hives, Verified 07/03/24 17:20 itching losartan Allergy Intermediate Angioedema Verified 07/03/24 17:20 tramadol [From ULTRAM] Allergy Intermediate hives,itchi Verified 07/03/24 17:20 ng Review of Systems Review of Systems: Yes all other systems are reviewed and are negative [facility] Past Medical History Medical History Neuropathy Hx of screening mammography Vitamin B12 deficiency Vitamin D deficiency Annual physical exam Breast CA (~03/01/23) Flank pain, chronic Hx of abdominal pain Excessive drinking of alcohol COPD (chronic obstructive pulmonary disease) Pulmonary nodules Atrial arrhythmia NICM (nonischemic cardiomyopathy) Cardiac LV ejection fraction of 40-49% Osteoarthritis Colonoscopy refused Muscle spasm History of breast cancer in female Chronic GERD Anxiety, generalized Surgical History History of esophagogastroduodenoscopy (EGD) H/O colonoscopy History of removal of Port-a-Cath History of hysterectomy History of section H/O right mastectomy Family History Family History Father Non-Hodgkin lymphoma Mother CVD (cardiovascular disease) Brother Lung disease Sister No problems noted. Maternal Grandfather Colon cancer Maternal Grandmother CVD (cardiovascular disease) Paternal Grandfather Unknown family medical history Paternal Grandmother Unknown family medical history Brother No problems noted. Son No problems noted. Son No problems noted. Daughter No problems noted. 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 Oriented X3. No acute distress. Eyes: Icteric ENT: Pharynx normal. Oral Mucosa moist Neck: Normal inspection. Neck supple. CVS: Normal heart rate and rhythm. Pulses normal. Respiratory: No respiratory distress. Equal air entry bilateral, no wheezing/rales/rhonchi Abdomen: Soft and nontender. Bowel sounds are present, no mass palpable, no CVA tenderness ascites+ Skin: Skin warm and dry. Normal skin color. Normal skin turgor. Extremities: 4+ lower extremity edema. No calf tenderness Neuro: Oriented X 3. No motor deficit. No sensory deficit.No cerebellar signs , cranial nerves II-XII intact no hepatic flaps Medical Decision Making Medical Decision Making MDM Narrative: Patient with alcoholic liver disease with ascites with CKD came here for increased confusion workup is negative for acute encephalopathy patient is back to normal was very anxious during stay in the ER does not like to go back to her rehab patient is advised to follow up as outpatient Differential Diagnosis Differential Diagnoses: The differential diagnosis associated with the presentation includes Admission/Observation Consideration of admission/observation: Escalation of care including admission/observation considered Consult Healthcare Provider Management of the patient was discussed with: Hospitalist Lab Data [facility] Lab Attestation statement: I reviewed the patient's lab results. 07/03/24 17:55 07/03/24 17:55 Labs: Lab Results 07/03/24 07/03/24 07/03/24 Range/Units 17:54 17:55 18:07 WBC 9.4 (4.8-10.8) X10*3/uL RBC 2.50 L (4.20-5.50) X10*6/uL Hgb 9.1 L (12.0-16.0) g/dl Hct 27.2 L (37.0-47.0) % MCV 108.8 H (80.0-98.0) fL MCH 36.4 H (27.0-33.0) pg MCHC 33.5 (31.0-35.0) g/dl RDW 19.2 H (11.0-16.0) % Plt Count 151 L (160-400) X10*3/uL MPV 11.2 (9.4-12.3) fL Immature Gran % (Auto) 0.6 H (0.0-0.4) % Neut % (Auto) 71.1 (45-73) % Lymph % (Auto) 13.5 L (20-40) % Davidson % (Auto) 13.3 H (2-11) % Eos % (Auto) 1.1 (0-4) % Baso % (Auto) 0.4 (0-2) % Lymph # (Auto) 1.3 (1.2-4.9) X10*3/uL Davidson # (Auto) 1.2 (0.1-1.2) X10*3/uL Eos # (Auto) 0.1 (0.0-0.4) X10*3/uL Baso # (Auto) 0.0 (0.0-0.2) X10*3/uL Abs Immat Gran (auto) 0.06 H (0.00-0.03) X10*3/uL Absolute Neuts (auto) 6.7 (2.0-8.3) x10*3/uL Absolute Nucleated RBC 0.000 (0.0-0.012) X10*3/uL Nucleated RBC % (auto) 0.0 (0.0-0.2) /100WBC PT 21.0 H (11.1-13.3) SEC INR 1.7 H (0.9-1.1) VBG pH 7.59 H (7.32-7.43) VBG pCO2 20 mmHg VBG pO2 172 mmHg VBG HCO3 20 L (22-26) mmol/L VBG O2 Saturation 100.0 % VBG Base Excess -0.2 mmol/L Sodium 136 (135-145) mmol/L Potassium 4.4 (3.3-5.1) mmol/L Chloride 106 (96-108) mmol/L Carbon Dioxide 20 L (22-29) mmol/L Anion Gap 14 (12-20) BUN 56 H (9-16) mg/dL Creatinine 2.25 H (0.5-1.4) mg/dL Estim Creat Clear Calc 26.2 Estimated GFR 21 Random Glucose 103 (60-115) mg/dL Calcium 9.7 (8.4-10.2) mg/dL Total Bilirubin 4.6 H (0.0-1.0) mg/dL AST 42 H (5-31) U/L ALT 15 (0-31) U/L Alkaline Phosphatase 66 (39-117) U/L Ammonia 45 (13-55) umol/L Total Protein 6.3 L (6.5-8.0) g/dL Albumin 3.5 (3.5-5.0) g/dL COVID-19 (SEGUNDO) Negative (Negative) COVID-19 Clin Com See Note Independent Interpretation I performed an independent interpretation of an: Plain X-Ray Radiology Impression Discussion of test interpretation with radiology: I have reviewed the radiologist's reading. Discharge Plan Discharge Clinical Impression: Chronic liver disease and cirrhosis Patient Disposition: Xfer SNF Transfer Details: Your labs are stable for chronic liver and kidney disease, continue same medications as prescribed and follow with right of way manager Prescriptions: No Action fluoxetine 40 mg capsule 40 mg PO DAILY Qty: 90 3RF gabapentin 300 mg capsule 300 mg PO BID Qty: 180 1RF Trelegy Ellipta 200-62.5-25 mcg blister with device 1 inh inhalation DAILY Qty: 180 3RF (DME) compression stockings See Rx Instructions .Route .MEDSUPPLY Qty: 1 0RF Rx Instructions: 20-30 mm Hg; over the calf vitamin B complex Tablet 1 tab PO DAILY acetaminophen 500 mg Tablet 500 mg PO BID PRN (Reason: Pain) midodrine 5 mg Tablet 5 mg PO TID Qty: 270 0RF albuterol sulfate 90 mcg/actuation HFA aerosol inhaler 2 puff inhalation QID PRN (Reason: for wheezing) spironolactone 50 mg tablet 100 mg PO DAILY spironolactone 25 mg Tablet 50 mg PO BID@0900,1800 Qty: 1 0RF Protocol: Hold for SBP< HOLD for SBP < : 90 lactulose 20 gram/30 mL Solution 30 g PO BID Qty: 180 0RF furosemide 20 mg tablet 40 mg PO DAILY Qty: 90 0RF fluconazole 100 mg Tablet 400 mg PO DAILY Qty: 12 0RF carvedilol 3.125 mg Tablet 3.125 mg PO BID Qty: 1 0RF Protocol: Hold for SBP/HR < HOLD for SBP < : 90 HOLD for HR < : 60 omeprazole 20 mg Capsule,Delayed Release(Dr/Ec) 20 mg PO BID Qty: 1 0RF aspirin 81 mg tablet,delayed release (DR/EC) 81 mg PO DAILY cholecalciferol (vitamin D3) 50 mcg (2,000 unit) capsule 50 mcg PO DAILY Interventions: ED Discharge Assessment Last Done: 07/03/24 21:10 Discharge Date/Time: 07/03/24 21:11 Print Language: Nigerian
[2024-07-03 17:15] VITALS: BP 121/54; BP 124/88; PULSE 70; PULSE 75; RESP 22; TEMP 36.8; O2SAT 100; O2SAT 98; BMI 33.6
[2024-07-03 17:22] VITALS: BP 118/47; PULSE 76; RESP 16; TEMP 36.7; O2SAT 99
[2024-07-03 18:01] LABS: MANUAL DIFF FLAG NO
[2024-07-03 18:06] LABS: Basophils Percent Auto 0.4 % (0-2); Eosinophils Absolute Auto 0.1 X10*3/uL (0.0-0.4); Eosinophils Percent Auto 1.1 % (0-4); Hematocrit 27.2 % (37.0-47.0); Hemoglobin 9.1 g/dl (12.0-16.0); Imm Gran Abs Auto 0.06 X10*3/uL (0.00-0.03); Imm Gran Pct Auto 0.6 % (0.0-0.4); Lymphocytes Absolute Auto 1.3 X10*3/uL (1.2-4.9); Lymphocytes Percent Auto 13.5 % (20-40); Mean Corpuscular HGB Conc 33.5 g/dl (31.0-35.0); Mean Corpuscular Hemoglobin 36.4 pg (27.0-33.0); Mean Corpuscular Volume 108.8 fL (80.0-98.0); Mean Platelet Volume 11.2 fL (9.4-12.3); Monocytes Absolute Auto 1.2 X10*3/uL (0.1-1.2); Monocytes Percent Auto 13.3 % (2-11); Neutrophils Absolute Auto 6.7 x10*3/uL (2.0-8.3); Neutrophils Percent Auto 71.1 % (45-73); Platelet Count 151 X10*3/uL (160-400); Red Cell Distribution Width 19.2 % (11.0-16.0); White Blood Count 9.4 X10*3/uL (4.8-10.8)
[2024-07-03 18:10] LABS: INTERNATIONAL NORM RATIO 1.7 (0.9-1.1)
[2024-07-03 18:12] LABS: VBG Base Excess -0.2 mmol/L; VBG HCO3 20 mmol/L (22-26); VBG pCO2 20 mmHg; VBG pH 7.59 (7.32-7.43); VBG pO2 172 mmHg
[2024-07-03 18:18] LABS: COVID-19 Test Negative (Negative); IDNOW Serial# 58CA691E
[2024-07-03 18:23] LABS: Ammonia 45 umol/L (13-55)
[2024-07-03 18:30] LABS: Alanine Aminotransferase 15 U/L (0-31); Albumin Level 3.5 g/dL (3.5-5.0); Alkaline Phosphatase 66 U/L (39-117); Anion Gap 14 (12-20); Aspartate Amino Transferase 42 U/L (5-31); Bilirubin Total 4.6 mg/dL (0.0-1.0); Blood Urea Nitrogen 56 mg/dL (9-16); Calcium 9.7 mg/dL (8.4-10.2); Carbon Dioxide 20 mmol/L (22-29); Chloride 106 mmol/L (96-108); Creatinine Clr Calc Pharmacy 26.2; Estimated Glomerular Filt Rate 21; Glucose Random 103 mg/dL (60-115); Potassium 4.4 mmol/L (3.3-5.1); Sodium 136 mmol/L (135-145); Total Protein 6.3 g/dL (6.5-8.0)
[2024-07-03 19:00] LABS: Venous Blood Gas Refer to POC result
--- NOTE | 2024-07-03 19:00 | PC.NURSE ---
report received from Amada BRAN, assume care of pt at this time
[2024-07-03 19:39] VITALS: BP 107/55; PULSE 78; RESP 18; O2SAT 98
--- NOTE | 2024-07-03 20:38 | PC.NURSE ---
pt assisted to br, with 2 assist and walker, pt is very unsteadily on feet. awaiting transport back to her [facility]
[2024-07-03 21:10] VITALS: BP 150/62; PULSE 83; RESP 17; TEMP 37; O2SAT 95
== END 2024-07-03 21:11 | disposition skilled nursing facility (03) ==
PROVIDERS: Emergency Provider Internal Medicine; PCP Internal Medicine
DX: K74.60 Unspecified cirrhosis of liver (principal); F10.21 Alcohol dependence, in remission; Z87.891 Personal history of nicotine dependence; Z11.52 Encounter for screening for COVID-19
CPT/HCPCS: 36415; 71045; 80053; 82140; 82803; 85025; 85610; 87635; 93005; 99284